=== PATIENT | female | born 2000 | race Caucasian/White ===

== ENCOUNTER → 2024-04-28 | Outpatient (CLI) | payer MEDICAID, SELFPAY | END | disposition home or self-care (01) | PROVIDERS: Referring Provider Obstetrics & Gynecology; Visit Provider Obstetrics & Gynecology | DX: R30.0 Dysuria (principal) | CPT/HCPCS: 87086; 87088; 87186 ==

== ENCOUNTER → 2024-05-17 | Outpatient (CLI) | payer MEDICAID, SELFPAY | END | disposition home or self-care (01) | PROVIDERS: Referring Provider Nurse Practitioner Family; Visit Provider Nurse Practitioner Family | DX: R30.0 Dysuria (principal) | CPT/HCPCS: 87086; 87088 ==

== ENCOUNTER → 2024-09-15 | Outpatient (CLI) | payer MEDICAID, SELFPAY ==
[2024-09-25 09:49] LABS: HPV Reflexed? NOT INDICATED
== END | disposition home or self-care (01) ==
LOC: LABSPEC 15:28
PROVIDERS: Referring Provider Advanced Practice Midwife; Visit Provider Advanced Practice Midwife
DX: Z12.4 Encounter for screening for malignant neoplasm of cervix (principal)
CPT/HCPCS: 88175; G0145

== ENCOUNTER → 2024-10-25 | Outpatient (CLI) | payer MEDICAID, SELFPAY ==
[2024-10-25 17:04] LABS: Absolute Lymphocyte Count 2.14 X10^3/uL (0.83-4.51); Absolute Neutrophil Count 4.4 X10^3/uL (2.0-7.7); Basophil# 0.04 X10^3/uL; Basophil% 0.6 % (0-1); Eosinophil# 0.07 X10^3/uL; Hematocrit 43.7 % (37-47); Hemoglobin 14.6 g/dL (12.0-15.0); Lymphocyte # 2.14 X10^3/ul (0.83-4.51); Lymphocyte % 29.8 % (19-41); Mean Corp Hgb Conc 33.4 g/dL (32-36); Mean Corpuscular Hgb 28.3 pg (27.0-32.0); Mean Corpuscular Volume 84.7 fL (81-99); Mean Platelet Vol. 10.5 fl (6.2-12.0); Monocyte# 0.49 X10^3/uL; Monocyte% 6.8 % (0-10); NRBC Flagged by Analyzer 0 % (0-5); Neutrophil # 4.41 X10^3/uL (2.7-7.7); Neutrophil % 61.5 % (47-70); Platelet Count 287 K/mm3 (150-450); RBC Distribution Width CV 12.3 % (11.6-14.6); RBC Distribution Width SD 37.6 fl (35.1-43.9); Red Blood Count 5.16 M/mm3 (4.2-5.4); White Blood Count 7.2 K/mm3 (4.4-11.0)
[2024-10-25 17:20] LABS: Vitamin D,25 Hydroxy 18.1 ng/mL
[2024-10-25 17:23] LABS: ALB/GLOB Ratio 1.1 RATIO (0.9-2.4); AST(SGOT) 14 U/L (15-37); Alanine Aminotransfer ALT/SGPT 24 U/L (13-56); Albumin, Serum 4.1 g/dL (3.2-5.0); Alkaline Phosphatase 131 U/L (45-117); Anion Gap 9 (5-15); BUN 14 mg/dL (7-18); BUN/Creat Ratio 16.8 RATIO (10-20); Calcium,Total 9.2 mg/dL (8.5-10.1); Chloride 100 mmol/L (98-107); Creatinine, Serum 0.83 mg/dL (0.55-1.02); EST Glomerular Filtration Rate 91 mL/min (>60); Est Glom Filt Rate - Afr Amer 110 mL/min (>60); Globulin 3.7 g/dL (2.2-4.2); Glucose 89 mg/dL (74-106); Potassium 3.8 mmol/L (3.5-5.1); Protein, Total 7.8 g/dL (6.4-8.2); Sodium Level 137 mmol/L (136-145)
== END | disposition home or self-care (01) ==
LOC: BWCLAB 16:26
PROVIDERS: Referring Provider Nurse Practitioner Family; Visit Provider Nurse Practitioner Family
DX: Z13.29 Encounter for screening for other suspected endocrine disorder (principal); R53.83 Other fatigue; Z13.21 Encounter for screening for nutritional disorder
CPT/HCPCS: 36415; 80053; 82306; 84439; 84443; 85025

== ENCOUNTER → 2025-01-04 | Outpatient (CLI) | payer MEDICAID, SELFPAY | END | disposition home or self-care (01) | LOC: LABSPEC 11:27 | PROVIDERS: Referring Provider Nurse Practitioner Family; Visit Provider Nurse Practitioner Family | DX: N89.8 Other specified noninflammatory disorders of vagina (principal) | CPT/HCPCS: 87070; 87205 ==

== ENCOUNTER → 2025-02-02 | Outpatient (CLI) | payer MEDICAID, SELFPAY ==
[2025-02-02 17:57] LABS: Vitamin D,25 Hydroxy 28.5 ng/mL (30-100)
== END | disposition home or self-care (01) ==
LOC: BWCLAB 16:27
PROVIDERS: Referring Provider Nurse Practitioner Family; Visit Provider Nurse Practitioner Family
DX: E55.9 Vitamin D deficiency, unspecified (principal)
CPT/HCPCS: 36415; 82306

== ENCOUNTER → 2025-02-06 | Outpatient (CLI) | payer MEDICAID, SELFPAY | END | disposition home or self-care (01) | LOC: LABSPEC 11:30 | PROVIDERS: Referring Provider Advanced Practice Midwife; Visit Provider Advanced Practice Midwife | DX: N89.8 Other specified noninflammatory disorders of vagina (principal) | CPT/HCPCS: 87070; 87077; 87186; 87205 ==

== ENCOUNTER → 2025-03-23 | Outpatient (CLI) | payer MEDICAID, SELFPAY ==
[2025-03-23 09:29] LABS: hCG Titer Quant., Serum 33 mIU/mL (<9 non-preg)
== END | disposition home or self-care (01) ==
LOC: BWCLAB 08:17
PROVIDERS: Referring Provider Advanced Practice Midwife; Visit Provider Advanced Practice Midwife
DX: Z34.90 Encounter for supervision of normal pregnancy, unspecified, unspecified trimester (principal)
CPT/HCPCS: 36415; 84702

== ENCOUNTER → 2025-03-26 | Outpatient (CLI) | payer SELFPAY ==
[2025-03-26 11:13] LABS: hCG Titer Quant., Serum 8 mIU/mL (<9 non-preg)
== END | disposition home or self-care (01) ==
LOC: LAB 07:48
PROVIDERS: PCP Internal Medicine; Referring Provider Obstetrics & Gynecology; Visit Provider Obstetrics & Gynecology
DX: O46.90 Antepartum hemorrhage, unspecified, unspecified trimester (principal); Z3A.00 Weeks of gestation of pregnancy not specified
CPT/HCPCS: 36415; 84702

== ENCOUNTER → 2025-04-03 | Outpatient (CLI) | payer OTHER, SELFPAY ==
[2025-04-03 10:10] LABS: hCG Titer Quant., Serum < 1 mIU/mL (<9 non-preg)
== END | disposition home or self-care (01) ==
LOC: BWCLAB 08:17
PROVIDERS: PCP Internal Medicine; Referring Provider Obstetrics & Gynecology; Visit Provider Obstetrics & Gynecology
DX: O03.9 Complete or unspecified spontaneous abortion without complication (principal)
CPT/HCPCS: 36415; 84702

== ENCOUNTER → 2025-04-25 | Outpatient (CLI) | payer OTHER, SELFPAY ==
[2025-04-25 11:56] LABS: hCG Titer Quant., Serum 15 mIU/mL (<9 non-preg)
== END | disposition home or self-care (01) ==
PROVIDERS: PCP Internal Medicine; Visit Provider Advanced Practice Midwife
DX: N91.2 Amenorrhea, unspecified (principal)
CPT/HCPCS: 36415; 84702

== ENCOUNTER → 2025-04-27 | Outpatient (CLI) | payer OTHER, SELFPAY ==
--- OUTSIDE RECORDS SUMMARY | 2025-04-27 07:42 | XMS RPT_ITS | CCD ---
Author Organization [facility] Care Team Providers Care Senior Internet Sales Consultant Name Role Phone Unavailable Primary Care Provider Unavailalfredo Ray MD, [facility] Primary Care Provider Nallely ÁLVAREZ, Hellen Primary Care Provider Nallely ÁLVAREZ, Hellen Primary Care Provider Nallely ÁLVAREZ, Hellen Primary Care Provider Nallely ÁLVAREZ, Hellen Primary Care Provider Brie EVANS Referring Unavailable LINGANNA, HELLEN Primary Care Unavailable REMI POWELL Referring Unavailable LINGANNA, HELLEN Primary Care Unavailable LINGANNA, HELLEN Primary Care Unavailable RHODA FOSTER Attending Unavailable YODIT FUCHS Admitting Unavailable RHODA FOSTER Attending Unavailable RHODA FOSTER Admitting Unavailable LINGANNA, HELLEN Primary Care Unavailable Nallely ÁLVAREZ, Hellen Primary Care Provider ZEKE FISCHER Attending Unavailable ASHLYN HEADLEY Referring Unavailable OLEGHE, EFEWONGBE B Primary Care Unavailable LINGANNA, HELLEN Primary Care Unavailable BHARATHI ESTRADA Referring Unavailable LINGANNA, HELLEN Primary Care Unavailable LINDA MÁRQUEZ Attending Unavailable Rosie Stinson Attending Unavailable Rosie Stinson Referring Unavailable Rosie Stinson Attending Unavailable Rosie Stinson Referring Unavailable Sharmin Hernandez Referring Unavailable Sharmin Hernandez Attending Unavailable Care Physician, No Primary Primary Care Unava ilable Sharmin Hernandez Referring Unavailable Sharmin Hernandez Attending Unavailable Sharmin Hernandez Referring Unavailable Sharmin Hernandez Attending Unavailable Sharmin Hernandez Attending Unavailable Sharmin Hernandez Referring Unavailable Oleghe, Efewongbe Primary Care Unavailable Rosie Stinson Attending Unavailable Elizabeth Dang Attending Unavailable Elizabeth Dang Referring Unavailable Care Physician, No Primary Primary Care Unava ilable Toi, Vani Attending Unavailable Doshetal, Vani Attending Unavailable Doshetal, Vani Attending Unavailable Jesus Chong Attending Unavailable Oleghe, Efewongbe Primary Care Unavailable Jesus Dickey Attending Unavailable UngereTonya mott Attending Unavailable Oleghe, Efewongbe Referring Unavailable Oleghe, Efewongbe Primary Care Unavailable Rosie Stinson Attending Unavailable Doshetal, Vani Attending Unavailable Dossi, Vani Referring Unavailable Dossi, Vani Attending Unavailable Milad, Rosie Referring Unavailable Milad, Rosie Attending Unavailable Dossi, Vani Attending Unavailable Marcanthony, Elizabeth Attending Unavailable Dossi, Vani Attending Unavailable Dossi, Vani Attending Unavailable Oleghe, Efewongbe Primary Care Unavailable Marcanthleonard, Elizabeth Referring Unavailable Marcanthlenoard, Elizabeth Attending Unavailable Milad, Rosie Attending Unavailable Care Physician, No Primary Referring Unava ilable Oleghe, Efewongbe Primary Care Unavailable Alton, Elizabeth Referring Unavailable Alton, Elizabeth Attending Unavailable Jesus Chong Attending Unavailable Jesus Chong Attending Unavailable Oleghe, Efewongbe Attending Unavailable Doshetal, Vani Attending Unavailable Care Physician, No Primary Referring Unava ilable Sharmin Hernandez Attending Unavailable Medications Current Medications Medication Drug Class(es) Dates Sig (Normalized) Sig (Original) azelastine hydrochloride 0.137 mg/actuat metered dose nasal spray (2 sources) Histamine-1 Receptor Antagonist Start: 04-14-2022 End: 05-21-2022 take 1 spray(s) nasal route twice daily azelastine (ASTELIN, ASTEPRO) 0.1% nasal spray Use 1 [place] in each nostril twice daily. 30 mL 2 04/14/2022 05/21/2022 Active Comment on above: Use 1 [place] in each nostril twice daily. cephalexin 500 mg oral capsule (5 sources) Cephalosporin Antibacterial Start: 11-23-2023 End: 11-30-2023 take 1 capsule by mouth twice daily cephALEXin (KEFLEX) 500 mg capsule Indications: Acute cystitis with hematuria Take 1 capsule by mouth two times a day for 7 days. 14 capsule 0 11/23/2023 11/30/2023 Active Start: 01-04-2023 End: 01-09-2023 take 1 capsule by mouth four times daily cephALEXin (KEFLEX) 500 mg capsule Take 1 capsule by mouth 4 times daily for 5 days. 20 capsule 0 01/04/2023 01/09/2023 Active Start: 03-04-2022 End: 03-11-2022 take 1 capsule by mouth twice daily cephALEXin (KEFLEX) 500 mg capsule Indications: Leukocytes in urine Take 1 capsule by mouth twice daily for 7 days. 14 capsule 0 03/04/2022 03/11/2022 Active Comment on above: Take 1 capsule by mo uth twice daily for 7 days. Take 1 capsule by mo uth 4 times daily for 5 days. Take 1 capsule by mo uth two times a day for 7 days. clotrimazole 10 mg/ml vaginal cream (2 sources) Azole Antifungal Start: 01-06-20 End: 01-13-20 23 clotrimazole (LOTRIMIN) 1 % vaginal cream Use 1 applicatorful vaginally daily at bedtime for 7 days. 45 g 0 01/05/2023 01/12/2023 Active Comment on above: Use 1 applicatorful vaginally daily at bedtime for 7 days. copper 313 mg drug implant (5 sources) Copper-containing Intrauterine Device Start: 10-02-20 23 End: 09-29-20 33 copper (PARAGARD) 380 square mm intrauterine device Indications: examination or test, unconfirmed , Encounter for IUD insertion 1 Intra Uterine Device by INTRAUTERINE route as directed. 1 Intra Uterine Device 10/02/2023 09/29/2033 Active Comment on above: 1 Intra Uterine Christi ce by INTRAUTERINE route as directed. doxycycline monohydrate 100 mg oral capsule (1 source) Tetracycline-class Drug Start: 01-24-20 24 End: 02-03-20 24 take 1 capsule by mouth twice daily doxycycline monohydrate (MONODOX) 100 mg capsule Take 1 capsule by mouth two times a day for 10 days. 20 capsule 0 01/24/2024 02/03/2024 Active metroNIDAZOLE 500 mg oral tablet (3 sources) Nitroimidazole Antimicrobial Start: 01-06-20 End: 01-13-20 23 take 1 tablet by mouth every twelve hours metroNIDAZOLE (FLAGYL) 500 mg tablet Take 1 tablet by mouth every 12 hours for 7 days. 14 tablet 0 01/05/2023 01/12/2023 Active Start: 10-03-2022 End: 10-10-2022 take 1 tablet by mouth twice daily metroNIDAZOLE (FLAGYL) 500 mg tablet Take 1 tablet by mouth twice daily for 7 days. 14 tablet 0 10/03/2022 10/10/2022 Active Comment on above: Take 1 tablet by gideon th twice daily for 7 days. Take 1 tablet by gideon th every 12 hours for 7 days. Miconazole (1 source) Azole Antifungal Start: 02-09-2023 End: 02-16-2023 miconazole nitrate (MONISTAT 7) 2 % (100 mg)- 2 % (9 gram) cpfc Indications: Candidal vaginitis Use 1 Applicator vaginally once daily for 7 days. 44 g 0 02/09/2023 02/16/2023 Active Comment on above: Use 1 Applicator vag inally once daily for 7 days. Completed/Discontinued Medications Medication Drug Class(es) Dates Sig (Normalized) Sig (Original) acetaminophen 500 mg oral tablet (3 sources) Start: 07-30-2023 End: 08-19-2023 take 2 tablets by mouth every six hours as needed acetaminophen (TYLENOL) 500 mg tablet Take 2 tablets by mouth every 6 hours as needed for pain. 30 tablet 0 07/30/2023 08/19/2023 Discontinued Comment on above: Take 2 tablets by mo ut every 6 hours as needed for pain. benzocaine 15 mg / menthol 2.6 mg oral lozenge (4 sources) Standardized Chemical Allergen Start: 05-19-2023 End: 06-25-2023 benzocaine-menthol (CEPACOL SORE THROAT, TOM-MEN,) 15-2.6 mg lozg lozenge Indications: Sore throat Take 1 Lozenge by mouth every 3 hours as needed. 16 Lozenge 0 05/19/2023 06/25/2023 Discontinued (Other) Comment on above: Take 1 Lozenge by mo uth every 3 hours as needed. Blood Pressure Monitor (3 sources) Start: 07-29-2023 End: 08-19-2023 Blood Pressure Monitor 1 Each two times a day. 1 Kit 0 07/29/2023 08/19/2023 Discontinued Start: 07-29-2023 Blood Pressure Monitor 1 Each two times a day. 1 Kit 0 07/29/2023 Active Comment on above: 1 Each two times a d ay. calcium carbonate 500 mg chewable tablet (14 sources) Start: 03-31-20 End: 08-19-20 take 1 tablet by mouth three times daily calcium carbonate (TUMS) 500 mg chew Take 1 & 1/2 tablets by mouth three times daily. 60 tablet 1 03/31/2023 08/19/2023 Discontinued Comment on above: Take 1 & 1/2 tablets by mouth three times daily. calcium carbonate 2500 mg / cholecalciferol 800 unt oral tablet (20 sources) Vitamin D Start: 12-26-19 End: 09-21-20 take 1 tablet by mouth once daily calcium carbonate-vitamin D3 1,000 mg-20 mcg (800 unit) tab Take 1 tablet by mouth once daily. 90 tablet 2 12/25/2022 08/19/2023 Discontinued Comment on above: Take 1 tablet by gideon th once daily. cetirizine hydrochloride 10 mg oral tablet (20 sources) Histamine-1 Receptor Antagonist Start: 03-31-20 End: 02-03-20 take 1 tablet by mouth once daily cetirizine (ZYRTEC) 10 mg tablet Indications: Chronic maxillary sinusitis Take 1 tablet by mouth once daily. 90 tablet 3 07/17/2022 02/02/2023 Discontinued Comment on above: Take 1 tablet by gideon th once daily. Desogestrel / Ethinyl Estradiol (14 sources) Progestin, Estrogen Start: 04-08-20 take 1 tablet by mouth once daily Desogestrel-Ethinyl Estradiol (RECLIPSEN, 28,) 0.15-0.03 mg per tablet Indications: Encounter for initial prescription of contraceptive pills Take 1 tablet by mouth once daily. 84 tablet 4 04/08/2022 Active Start: 03-10-2022 End: 04-08-2022 take 1 tablet by mouth once daily Desogestrel-Ethinyl Estradiol (RECLIPSEN, 28,) 0.15-0.03 mg per tablet Indications: Encounter for initial prescription of contraceptive pills Take 1 tablet by mouth once daily. 84 tablet 0 03/10/2022 04/08/2022 Discontinued Start: 03-10-2022 take 1 tablet by gideon th once daily Desogestrel-Ethinyl Estradiol (RECLIPSEN, 28,) 0.15-0.03 mg per tablet Indications: Encounter for initial prescription of contraceptive pills Take 1 tablet by mouth once daily. 84 tablet 0 03/10/2022 Active Start: 12-30-2021 take 1 tablet by gideon th once daily, then take 0.15 tablet by mouth once Desogestrel-Ethinyl Estradiol (APRI) 0.15-0.03 mg per tablet Indications: Encounter for initial prescription of contraceptive pills Take 1 tablet by mouth once daily. 84 tablet 0 12/30/2021 Active End: 03-10-2022 take 1 tablet by mouth once daily Desogestrel-Ethinyl Estradiol (RECLIPSEN, 28,) 0.15-0.03 mg per tablet Take 1 tablet by mouth once daily. 0 03/10/2022 Discontinued take 1 tablet by gideon th once daily Desogestrel-Ethinyl Estradiol (RECLIPSEN, 28,) 0.15-0.03 mg per tablet Take 1 tablet by mouth once daily. 0 Active Comment on above: Take 1 tablet by gideon th once daily. famotidine 20 mg oral tablet (14 sources) Histamine-2 Receptor Antagonist Start: 03-31-20 End: 08-19-20 take 1 tablet by mouth once daily famotidine (PEPCID) 20 mg tablet Take 1 tablet by mouth once daily. 40 tablet 1 03/31/2023 08/19/2023 Discontinued Comment on above: Take 1 tablet by gideon th once daily. ferrous sulfate 325 mg oral tablet (20 sources) Start: 12-26-19 End: 09-21-20 take 1 tablet by mouth once daily at bedtime ferrous sulfate 325 mg (65 mg iron) tablet Take 1 tablet by mouth daily at bedtime. 90 tablet 2 12/25/2022 08/19/2023 Discontinued Comment on above: Take 1 tablet by gideon th daily at bedtime. fluconazole 150 mg oral tablet (2 sources) Azole Antifungal Start: 10-02-20 End: 10-03-20 take 1 tablet by mouth once daily fluconazole (DIFLUCAN) 150 mg tablet Take 1 tablet by mouth once daily for 1 day. 1 tablet 0 10/02/2022 10/03/2022 Comment on above: Take 1 tablet by gideon th once daily for 1 day. fluticasone propionate 0.05 mg/actuat metered dose nasal spray (20 sources) Corticosteroid Start: 03-31-20 End: 11-30-19 take 2 spray(s) nasal route once daily fluticasone (FLONASE ALLERGY RELIEF) 50 mcg/actuation nasal spray Indications: Chronic maxillary sinusitis Instill 2 sprays in each nostril once daily. 16 g 5 07/17/2022 11/30/2022 Discontinued (Course of therapy completed) Start: 10-01-2016 End: 03-31-2022 fluticasone (FLONASE ALLERGY RELIEF) 50 mcg/actuation nasal spray Comment on above: Instill 2 sprays in each nostril once daily. hydrOXYzine pamoate 25 mg oral capsule (16 sources) Antihistamine Start: 07-29-20 End: 11-30-19 take 1 capsule by mouth once daily as needed hydrOXYzine pamoate (VISTARIL) 25 mg capsule Take 1 capsule by mouth once daily as needed. 30 capsule 2 07/29/2022 11/30/2022 Discontinued (Course of therapy completed) Start: 06-16-2022 End: 11-30-2022 hydrOXYzine HCl (ATARAX) 10 mg tablet Comment on above: Take 1 tablet by gideon th twice daily as needed for anxiety/panic attacks Take 1 capsule by mo [facility] once daily as needed. ibuprofen 600 mg oral tablet (3 sources) Nonsteroidal Anti-inflammatory Drug Start: 3 End: 3 take 1 tablet by mouth every six hours as needed ibuprofen (MOTRIN) 600 mg tablet Take 1 tablet by mouth every 6 hours as needed for pain. 30 tablet 0 07/30/2023 08/19/2023 Discontinued Comment on above: Take 1 tablet by gideon th every 6 hours as needed for pain. lamoTRIgine 25 mg oral tablet (20 sources) Mood Stabilizer, Anti-epileptic Agent Start: 2 End: 3 take 1 tablet by mouth once daily lamoTRIgine (LAMICTAL) 100 mg tablet Take 1 tablet by mouth once daily. 30 tablet 2 06/03/2022 11/30/2022 Discontinued (Course of therapy completed) Start: 06-03-2022 End: 11-30-2022 take 1 tablet by mouth once daily, then take 2 tablets by mouth once daily lamoTRIgine (LAMICTAL) 25 mg tablet Take 1 tablet by mouth once daily for 2 weeks, then increase to 2 tablets (50mg) daily for 2 weeks. 42 tablet 0 06/03/2022 11/30/2022 Discontinued (Course of therapy completed) Comment on above: Take 1 tablet by gideon th once daily for 2 weeks, then increase to 2 tablets (50mg) daily for 2 weeks. Take 1 tablet by gideon th once daily. lidocaine hydrochloride 20 mg/ml mucous membrane topical solution (4 sources) Antiarrhythmic, Amide Local Anesthetic Start: 05-19-20 End: 06-25-20 lidocaine viscous (XYLOCAINE) 2 % solution Indications: Sore throat Gargle and spit 5 to 15 mL for no more frequently than every 3 hours. Do no exceed more than 8 doses per 24-hour period for up to 7 days 100 mL 0 05/19/2023 06/25/2023 Discontinued (Other) Comment on above: Gargle and spit 5 to 15 mL for no more frequently than every 3 hours. Do no exceed more than 8 doses per 24-hour period for up to 7 days montelukast 10 mg oral tablet (11 sources) Leukotriene Receptor Antagonist montelukast (SINGULAIR) 10 mg tablet Take by mouth. 0 Active Comment on above: Take by mouth. omega-3 DHA-EPA (FISH OIL) 1,200 (144-216) mg capsule (20 sources) Start: 12-26-19 End: 08-19-20 take 1 capsule by mouth once daily at breakfast omega-3 DHA-EPA (FISH OIL) 1,200 (144-216) mg capsule Take 1 capsule by mouth daily with breakfast. 90 capsule 2 12/25/2022 08/19/2023 Discontinued Start: 12-25-2022 End: 09-21-2023 take 1 capsule by mouth once daily at breakfast omega-3 DHA-EPA (FISH OIL) 1,200 (144-216) mg capsule Take 1 capsule by mouth daily with breakfast. 90 capsule 2 12/25/2022 09/21/2023 Suspended Start: 12-25-2022 End: 09-21-2023 take 1 capsule by mouth once daily at breakfast omega-3 DHA-EPA (FISH OIL) 1,200 (144-216) mg capsule Take 1 capsule by mouth daily with breakfast. 90 capsule 2 12/25/2022 09/21/2023 Active Comment on above: Take 1 capsule by mo uth daily with breakfast. ondansetron 8 mg disintegrating oral tablet (11 sources) Serotonin-3 Receptor Antagonist Start: 12-26-19 take 1 tablet by mouth once daily as needed for nausea ondansetron orally disintegrating (ZOFRAN ODT) 8 mg disintegrating tablet Dissolve 1 tablet by mouth once daily as needed for nausea/vomiting. 30 tablet 0 12/25/2022 Active Comment on above: Dissolve 1 tablet by mouth once daily as needed for nausea/vomiting. phenazopyridine hydrochloride 100 mg oral tablet (5 sources) Start: 03-04-20 take 2 tablets by mouth three times daily as needed phenazopyridine (PYRIDIUM, GERIDIUM) 100 mg tablet Indications: Dysuria Take 2 tablets by mouth three times daily as needed. 9 tablet 0 03/04/2022 Active Comment on above: Take 2 tablets by mo uth three times daily as needed. [id number] pa-fish 27 mg iron-800 mcg-260 mg (11 sources) Start: 12-01-19 take 1 capsule by mouth once daily [id number] epa-fish 27 mg iron-800 mcg-260 mg Take 1 capsule by mouth once daily. 30 capsule 2 12/01/2022 Active Comment on above: Take 1 capsule by mo uth once daily. Vitamin w/ Iron ( VITAMIN PLUS LOW IRON) 27 mg iron- 1 mg (20 sources) Start: 06-21-20 End: 07-11-20 24 take 1 tablet by mouth once daily Vitamin w/ Iron ( VITAMIN PLUS LOW IRON) 27 mg iron- 1 mg Take 1 tablet by mouth once daily. 90 tablet 3 06/21/2023 07/11/2024 Discontinued Start: 06-21-2023 End: 06-15-2024 take 1 tablet by mouth once daily Vitamin w/ Iron ( VITAMIN PLUS LOW IRON) 27 mg iron- 1 mg Take 1 tablet by mouth once daily. 90 tablet 3 06/21/2023 06/15/2024 Suspended Start: 06-21-2023 End: 06-15-2024 take 1 tablet by mouth once daily Vitamin w/ Iron ( VITAMIN PLUS LOW IRON) 27 mg iron- 1 mg Take 1 tablet by mouth once daily. 90 tablet 3 06/21/2023 06/15/2024 Active Start: 12-25-2022 End: 06-18-2023 take 1 tablet by mouth once daily Vitamin w/ Iron ( VITAMIN PLUS LOW IRON) 27 mg iron- 1 mg Take 1 tablet by mouth once daily. 60 tablet 1 12/25/2022 06/18/2023 Active Start: 12-25-2022 End: 05-15-2023 take 1 tablet by mouth once daily Vitamin w/ Iron ( VITAMIN PLUS LOW IRON) 27 mg iron- 1 mg Take 1 tablet by mouth once daily. 60 tablet 1 12/25/2022 05/15/2023 Active Start: 12-25-2022 End: 04-24-2023 take 1 tablet by mouth once daily Vitamin w/ Iron ( VITAMIN PLUS LOW IRON) 27 mg iron- 1 mg Take 1 tablet by mouth once daily. 60 tablet 1 12/25/2022 04/24/2023 Active Comment on above: Take 1 tablet by gideon th once daily. sodium chloride 0.111 meq/ml nasal solution (16 sources) Start: 0 End: 2 sodium chloride 0.65 % drop Use 1 [place] in the nose. 0 05/21/2020 07/17/2022 Discontinued (Course of therapy completed) Comment on above: Use 1 [place] in the n ose. ulipristal acetate 30 mg oral tablet (3 sources) Progesterone Agonist/Antagonist Start: 2 End: 2 take 1 tablet by mouth once ulipristal acetate (YAMILETH) 30 mg tablet Indications: Emergency contraception Take 1 tablet by mouth one time only for 1 dose. 1 tablet 5 04/08/2022 04/15/2022 Comment on above: Take 1 tablet by gideon th one time only for 1 dose. vitamin b6 100 mg oral tablet (11 sources) Start: 3 take 1 tablet by mouth once daily pyridoxine, vitamin B6, (VITAMIN B-6) 100 mg tablet Take 1 tablet by mouth once daily. 30 tablet 1 12/25/2022 Active Comment on above: Take 1 tablet by gideon th once daily. zolpidem tartrate 5 mg oral tablet (7 sources) gamma-Aminobutyric Acid-ergic Agonist Start: End: 3 take 1 tablet by mouth every 30 days at bedtime as needed zolpidem (AMBIEN) 5 mg tablet Indications: Primary insomnia Take 1 tablet by mouth at bedtime as needed for insomnia for up to 30 days. 15 tablet 2 07/29/2022 11/30/2022 Discontinued (Course of therapy completed) Start: 07-17-2022 End: 07-27-2022 take 1 tablet by mouth at bedtime as needed zolpidem (AMBIEN) 5 mg tablet Indications: Primary insomnia Take 1 tablet by mouth at bedtime as needed for insomnia for up to 7 days. 7 tablet 0 07/17/2022 07/27/2022 Active Comment on above: Take 1 tablet by gideon th at bedtime as needed for insomnia for up to 7 days. Take 1 tablet by gideon th at bedtime as needed for insomnia for up to 30 days. Problems Active Problems Problem Classification Problem Date Documented Date Episodic/Chronic Anxiety disorders (1 source) Posttraumatic stress disorder; Translations: [Post-traumatic stress disorder, unspecified] Chronic Complication of device; implant or graft (1 source) Migration of intrauterine contraceptive device; Translations: [Displacement of intrauterine contraceptive device, initial encounter] Episodic Contraceptive and procreative management (20 sources) Patient encounter status; Translations: [Encounter for initial prescription of contraceptive pills] Onset: 07-27-2023 Resolved: 01-24-2024 Episodic Hemorrhage during ; abruptio placenta; placenta previa (1 source) Antepartum hemorrhage, unspecified, unspecified trimester; Translations: [Antepartum hemorrhage, unspecified, unspecified trimester] Onset: 03-30-2025 Episodic Immunizations and screening for infectious disease (2 sources) Suspected disease caused by 2019-nCoV; Translations: [Suspected COVID-19 virus infection] 05-19-2023 Episodic Menstrual disorders (1 source) Amenorrhea, unspecified; Translations: [Amenorrhea, unspecified] Onset: 04-25-2025 Chronic Miscellaneous mental health disorders (2 sources) Primary insomnia; Translations: [Primary insomnia] Chronic Mood disorders (20 sources) Cyclothymia; 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] Onset: 07-17-2022 Chronic Mycoses (1 source) Candidiasis of vagina; Translations: [Candidal vaginitis] Episodic Nutritional deficiencies (20 sources) Undernutrition; Translations: [Mild protein-calorie malnutrition] Onset: 04-12-2022 Resolved: 01-24-2024 04-12-2022 Chronic Other bone disease and musculoskeletal deformities (1 source) Other idiopathic scoliosis, thoracolumbar region; Translations: [Other idiopathic scoliosis, thoracolumbar region] Onset: 10-30-2024 Chronic Other female genital disorders (1 source) Abnormal uterine bleeding; Translations: [Abnormal uterine and vaginal bleeding, unspecified] 01-24-2024 Chronic Other female genital disorders (2 sources) Vaginal discharge; Translations: [Other specified noninflammatory disorders of vagina] Episodic Other female genital disorders (1 source) Vaginal odor; Translations: [Other specified noninflammatory disorders of vagina] Episodic Other female genital disorders (1 source) Other specified noninflammatory disorders of vagina; Translations: [Other specified noninflammatory disorders of vagina] Onset: 02-12-2025 Episodic Other nutritional; endocrine; and metabolic disorders (1 source) Decrease in appetite; Translations: [Anorexia] Episodic Other and delivery including normal (13 sources) - urine test confirms ; Translations: [Encounter for test, result positive] Onset: 07-23-2023 Episodic Other upper respiratory disease (1 source) Allergic rhinitis; Translations: [Allergic rhinitis, unspecified] Chronic Other upper respiratory infections (2 sources) Chronic maxillary sinusitis; Translations: [Chronic maxillary sinusitis] Chronic Other upper respiratory infections (2 sources) Sore throat symptom; Translations: [Acute pharyngitis, unspecified] 05-19-2023 Episodic Otitis media and related conditions (1 source) Dysfunction of bilateral eustachian tubes; Translations: [Other specified disorders of Eustachian tube, bilateral] Episodic Ovarian cyst (3 sources) Cyst of right ovary; Translations: [Unspecified ovarian cyst, right side] Onset: 07-12-2024 07-12-2024 Episodic Residual codes; unclassified (3 sources) Treatment not available; Translations: [Procedure and treatment not carried out for other reasons] Episodic Residual codes; unclassified (1 source) Emergency contraception; Translations: [Other specified health status] Episodic Residual codes; unclassified (1 source) Procedure not done; Translations: [Procedure and treatment not carried out, unspecified reason] Episodic Residual codes; unclassified (1 source) Gestation period, 24 weeks; Translations: [24 weeks gestation of ] 04-20-2023 Episodic Residual codes; unclassified (1 source) Gestation period, 34 weeks; Translations: [34 weeks gestation of ] 06-26-2023 Episodic Screening and history of mental health and substance abuse codes (1 source) History of clinical finding in subject; Translations: [Personal history of other mental and behavioral disorders] Episodic Spondylosis; intervertebral disc disorders; other back problems (6 sources) Chronic low back pain; Translations: [Chronic midline 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 sciatica] Episodic Spontaneous (1 source) Complete or unspecified spontaneous without complication; Translations: [Complete or unspecified spontaneous without complication] Onset: 04-08-2025 Episodic Urinary tract infections (1 source) Acute cystitis; Translations: [Acute cystitis with hematuria] 11-23-2023 Episodic Past or Other Problems Problem Classification Problem Date Documented Da te Episodic/Chronic Abdominal pain (3 sources) Pain in female pelvis; Translations: [Pelvic and perineal pain] Onset: 07-11-2024 01-24-2024 Episodic Digestive congenital anomalies (20 sources) Congenital velopharyngeal incompetence;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 in See Rx Instructions PO PER PKG D IR 02/20/25 02/20/25 Rx a dose pack (Medrol (Mino)) #21 tabs Nurse's Note: Patient has cough, congestion and sinus pressure and headache that has been going on for 3 days. [facility] Medical History (Updated 02/12/25 @ 14:[address] Matilde Castillo MD) Brain fog Anxiety and depression Encounter to establish care Vitamin D deficiency History of frequent headaches Gestational hypertension Segmental dysfunction of lumbar region Segmental dysfunction of cervical region Migraines Surgical History History of repair of congenital cleft palate History of tonsillectomy History of surgical procedure on maxillary sinus History of tympanoplasty Family History Father Age: 45 Arthritis Hypertension Mother Age: 42 Anxiety Depression Alcoholism Aunt Age: 34 Psoriatic arthritis POTS (postural orthostatic tachycardia syndrome) Uncle Age: 55 CVA (cerebral vascular accident) Grandmother Blood clot in vein CVA (cerebral vascular accident) Grandfather Lung cancer Heart failure Social History (Updated 02/12/25 @ 13:45 by Luana Miller MA) adopted: No household members: spouse and children number of children: 1 current occupational status: employed current occupation: [employer] current occupational exposures/hazards: No pets and animals: No history of recent travel: No sexually active: Yes Smoking Status: Never smoker alcohol intake: never substance use type: does not use caffeine: Yes (1) Type: coffee frequency: does not exercise seatbelt use: always do you feel safe at home: Yes additional social history: Spouse - Damion HPI HPI Details: NATA QUEZADA, is a 24 F who presents to the office today for [facility] evaluation in [facility] for approximately 48 to 72-hour history of persistent cough, congestion and sinus pressure and headache. No c/o fever, chills, myalgias, fatigue, nausea, and diarrhea. Patient notes no complaints of chest pain or shortness of breath or dyspnea on exertion. Several close contacts recently dx???d w/ similar URI complaints. No axox-syt-leidgwt taken to assist. No other associated symptoms and no other alleviating/aggravatin g factors. ROS Const Constitutional: No other (As above) Exam Const General: cooperative, healthy appearing and no acute distress Orientation: alert, awake and oriented x3 HENMT Head: normal to inspection Ears: hearing grossly normal bilaterally, external ears normal, TM's normal bilaterally and EAC's normal Nose: external nose normal, nares normal, septum normal and clear nasal discharge Face and sinus: normal facial exam, sinuses tender (bilateral frontal/maxillary), and face symmetric Mouth: oral mucosae normal, lip normal, tongue normal and oropharynx normal Throat: posterior oropharynx normal, tonsils normal, uvula midline and no postnasal drainage Eyes General: appearance normal, both eyes and all related structures Neck Neck: normal visual inspection, full ROM, no lymphadenopathy, no meningeal signs and supple Neck mass: No Thyroid: thyroid normal Lymphatic: no lymphadenopathy noted Chest Chest palpation inspection: normal inspection of the chest Resp Effort Inspection: normal respiratory effort, able to speak in complete sentences and cough Quality of cough: wet (nonproductive in office today) Auscultation: Bilateral: Clear to Auscultation Cardio Palpation: normal PMI Rate: Regular Rhythm: regular rhythm Heart Sounds: S1 normal, S2 normal, no gallops, no murmurs and no ru (more content not included)... Normal [facility] Internal Medicine Office Vis rose 02-12-2025 Internal Medicine Office Visit [facility] [address] [place] [address] OFFICE VISIT Date of Service: 02/12/25 MR#: [id number] Acct: [id number] Name: NATA QUEZADA Rep #: [id number] : 2000 Provider: Dr. Matilde kennedy MD Age/Sex: 24/F Location: [facility] Status: Signed Intake Vital Signs 09/15/24 13:18 02/06/25 09:59 02/12/25 13:41 Height 5 ft 5 in 5 ft 5 in 5 ft 4 in Weight: 161 lb BMI 27.6 BP 120/70 Blood Pressure Location Lt brachial Position Sitting Respiration 14 Pulse 76 Pulse Source Monitor Temp 99 F Temp Source Temporal Pulse Oximetry (%) 98 Oxygen Delivery Method room air Intake Visit Reasons: Booked from other vendor Chief Complaint: Establish care. Brain fog. Air Traffic Supervisor Required: No Is patient in pain?: No Allergies No Known Allergies Allergy (Unverified 02/06/25 10:01) Medications ???Medication ???Instructions ???Recorded ???Confirmed ???Type cholecalciferol (vitamin D3) 25 4,000 unit PO QDAY 02/12/25 History mcg (1,000 unit) capsule sertraline 50 mg tablet (Zoloft) 50 mg PO QDAY #60 tabs 02/12/25 Rx PFSH Medical History (Updated 02/12/25 @ 14:[address] Matilde Castillo MD) Brain fog Anxiety and depression Encounter to establish care Vitamin D deficiency History of frequent headaches Gestational hypertension Segmental dysfunction of lumbar region Segmental dysfunction of cervical region Migraines Surgical History History of repair of congenital cleft palate History of tonsillectomy History of surgical procedure on maxillary sinus History of tympanoplasty Family History Father Age: 45 Arthritis Hypertension Mother Age: 42 Anxiety Depression Alcoholism Aunt Age: 34 Psoriatic arthritis POTS (postural orthostatic tachycardia syndrome) Uncle Age: 55 CVA (cerebral vascular accident) Grandmother Blood clot in vein CVA (cerebral vascular accident) Grandfather Lung cancer Heart failure Social History (Updated 02/12/25 @ 13:45 by Luana Miller MA) adopted: No household members: spouse and children number of children: 1 current occupational status: employed current occupation: [employer] current occupational exposures/hazards: No pets and animals: No history of recent travel: No sexually active: Yes Smoking Status: Never smoker alcohol intake: never substance use type: does not use caffeine: Yes (1) Type: coffee frequency: does not exercise seatbelt use: always do you feel safe at home: Yes additional social history: Spouse - Damion Questionnaire PQH-9 BMS Over the last 2 weeks, how often have you been bothered by any of the following problems? 1. Little interest or pleasure in doing things: nearly every day 2. Feeling down, depressed, or hopeless: several days 3. Trouble falling or staying asleep, or sleeping too much: not at all 4. Feeling tired or having little energy: nearly every day 5. Poor appetite or overeating: several days 6. Feeling bad about yourself - or that you are a failure or have let yourself and your family down: more than half the days 7. Trouble concentrating on things, such as reading the newspaper or watching television: more than half the days 8. Moving or speaking so slowly that other people could have noticed? - Or the opposite - being so fidgety or restless that you have been moving around a lot more than usual: several days 9. Thoughts that you would be better off or of hurting yourself in some way: not at all Total score: 13 Source: Developed by Drs. Dane Becerra, Manuela Stinson, Dean Flowers and colleagues, with an educational epi from [employer]. FRANCI-7 BMS FRANCI-7 Feeling nervous, anxious, or on edge: 3 = Nearly every day Not being able to stop or control worryin = Several days Worrying too much about different things: 3 = Nearly every day Trouble relaxin = More than half the days Being so restless that it is hard to sit still: 0 = Not at all Becoming easily annoyed or irritable: 1 = Several days Feeling afraid as if something awful might happen: 1 = Several days Total FRANCI-7 score (0-4 normal; 5-9 mild; 10-14 moderate; 15-21 severe): 11 Source: Developed by Drs. Dane Becerra, Manuela Stinson, Dean Flowers and colleagues, with an educational epi from [employer]. HPI HPI Chief Complaint: Establish care. Brain fog. Details: NATA QUEZADA, is a 24 F who presents to the office today to establish care. Also has some concerns. Had her son a few months ago and since then, she states that she has had a "brain fog. Becoming increasingly difficult to function and work. Chronic history of anxiety and depression, (more content not included)... Normal [facility] Genital Culture Comprehensiv taqueria 02-11-2025 VAC Reason for Exam: Vaginal Discharge Normal vaginal kathy isolated. No yeast, Gardnerella, or Neisseria isolated. Genital Culture Comprehensive Genital Culture Comprehensive Strep anginosus Amount Growth 3+ Strep anginosus: REACTION Ampicillin Islt DEVANG <=0.25 Penicillin G Islt DEVANG <=0.06 S Cefotaxime Islt DEVANG <=0.12 S cefTRIAXone Islt DEVANG <=0.12 S Clindamycin Islt DEVANG <=0.25 S Linezolid Islt DEVANG <=2 S Vancomycin Islt DEVANG 0.25 S Normal [facility] Comment on above: Performed By: #### M 100.2000, M100.3200 ####[facility] [id number] [place], [place], [id number] Gram Stainon 02-06-2025 Reason for Exam: Vaginal Discharge Gram Stain 4+ Gram variable melody No Gram negative diplococci Rare Gram positive cocci Score = 8 Interpretation: 0-3 Normal, 4-6 Intermediate, 7-10 Positive BV Normal [facility] Comment on above: Performed By: #### M 100.2000, M100.3200 ####[facility] [id number] [place], [address] Brand Director Office Visit Reporton 02-06-2025 Brand Director Office Visit Report [facility] [address], [address] [place] [address] OFFICE VISIT Date of Service: 02/06/25 MR#: [id number] Acct: [id number] Name: NATA QUEZADA Rep #: [id number] : 2000 Provider: CHONG Oneill ams Age/Sex: 24/F Location: [facility] Status: Signed Intake Vital Signs 09/15/24 13:18 01/04/25 10:20 02/06/25 09:59 Height 5 ft 5 in 5 ft 5 in 5 ft 5 in Weight: 140 lb BMI 23.3 BP 139/84 H Intake Visit Reasons: PARAGUARD REMOVAL Chief Complaint: Paragard Removal Air Traffic Supervisor Required: No Is patient in pain?: No Allergies No Known Allergies Allergy (Unverified 02/06/25 10:01) Medications ???Medication ???Instructions ???Recorded ???Confirmed ???Type cholecalciferol (vitamin D3) 25 25 mcg PO QDAY 02/06/25 02/06/25 H istory mcg (1,000 unit) capsule metronidazole 500 mg tablet 500 mg PO BID #14 tabs 02/06/25 Rx Is last menstrual period known: Yes Last Menstrual Period: 01/17/25 Post menopausal: No PFSH PFSH Medical History Segmental dysfunction of lumbar region Segmental dysfunction of cervical region Migraines Surgical History History of repair of congenital cleft palate History of tonsillectomy History of surgical procedure on maxillary sinus History of tympanoplasty Family History Father Age: 45 Arthritis Mother Age: 42 Anxiety Depression Aunt Age: 34 Autoimmune disorder Uncle Age: 55 CVA (cerebral vascular accident) Grandmother Blood clot in vein Seizures CVA (cerebral vascular accident) Grandfather Sudden cardiac Social History adopted: No household members: spouse and children number of children: 1 current occupational exposures/hazards: No pets and animals: Yes history of recent travel: No sexually active: Yes Smoking Status: Never smoker alcohol intake: never substance use type: does not use seatbelt use: always do you feel safe at home: Yes additional social history: Spouse - Damion History Past Pregnancies Del. Date Name GA/Weeks Outcome Route Bth Weight Infant Gen Labor Lgth Anesthesia Del Locatn Provider FOB 07/28/23 Oseas 38 live - full term [place] HPI PARAGUARD REMOVAL Details: NATA QUEZADA is a 24 year old who presents for IUD removal. would like to TTC. Female Reproductive History Last Menstrual Period: 01/17/25 ROS Const Constitutional: Reports system reviewed and no additional complaints, except as documented Cardio Card: Reports system reviewed and no additional complaints, except as documented Resp Resp: Reports system reviewed and no additional complaints, except as documented GI GI: Reports system reviewed and no additional complaints, except as documented : Reports system reviewed and no additional complaints, except as documented; Denies difficulty voiding, dysuria or urinary frequency Skin Skin/Breast: Reports system reviewed and no additional complaints, except as documented Neuro Neuro: Reports system reviewed and no additional complaints, except as documented Psych Psych: Reports system reviewed and no additional complaints, except as documented; Denies anhedonia, anxiety or depression Exam Const General: cooperative, healthy appearing, comfortable and no acute distress Orientation: alert, awake and oriented x3 Resp Effort Inspection: normal respiratory effort, able to speak in complete sentences and symmetric chest movement GI Inspection: normal to inspection Palpation: soft Rectal Exam: visual inspection normal External Female Exam: normal external appearance and normal appearance of the urethra Urethra: normal appearance of the urethra Speculum Exam - Vagina: normal appearance of the vagina and normal vaginal discharge Speculum Exam - Cervix: normal appearance of the cervix Skin General: no rashes or lesions noted Neuro General: patient alert, patient awake and patient oriented x3 Cognition: normal cognition Speech: speech normal Gait: normal gait Extrem General: normal to inspection and full ROM Psych Appearance: grossly normal and well kempt Mental Status: mental status grossly normal Affect: normal affect Speech and Movement: speech and movement normal Attitude: cooperative Thought Process: normal Thought Content: normal Judgment: judgment good Office Procedures IUD Removal IUD Removal Details: Sign out documentation: Completed Procedure: Speculum placed in vagina, IUD string visualized and grasped with ring forceps. IUD easily removed in its entirety and patient tolerated well. Coding Leve (more content not included)... Normal [facility] Vitamin D,25 Hydroxyon 02-02 Vitamin D 25-OH 28.5 ng/mL Low 30-100 [facility] Comment on above: Result Comment: Linda min D Status Deficiency: <20 ng/mL (50nmol/L) Insufficiency: 20-30 ng/mL (50-75 nmol/L) Sufficiency: 30-100 ng/mL (75-250 nmol/L) Toxicity: >100 ng/mL (>250 nmol/L) Performed By: #### L 506.1001 ####[facility] [address] [place], [place], [id number] Genital Culture Comprehensiv taqueria 01-08-2025 VAC Reason for Exam: Vaginal Discharge Normal vaginal kathy isolated. No yeast, Gardnerella, Neisseria or beta-hemolytic Streptococcus isolated. 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, [address] Gram Stainon 01-04-2025 GS Reason for Exam: Vaginal Discharge Gram Stain No Gram negative diplococci 2+ White Blood Cells 4+ Gram positive rods 1+ Gram negative rods Score = 1 Interpretation: 0-3 Normal, 4-6 Intermediate, 7-10 Positive BV Normal [facility] Comment on above: Performed By: #### M 100.1999, M100.3200 #### [facility] [address] [place], [address] Brand Director Office Visit Reporton 01-04-2025 Brand Director Office Visit Report [facility] [address] [place] [address] OFFICE VISIT Date of Service: 01/04/25 MR#: [id number] Acct: [id number] Name: NATA QUEZADA Rep #: [id number] : 2000 Provider: GALILEO Jordan Age/Sex: 24/F Location: [facility] Status: Signed Intake Vital Signs 09/15/24 13:18 01/04/25 10:10 01/04/25 10:20 Height 5 ft 5 in 5 ft 5 in 5 ft 5 in Weight: 135 lb BMI 22.4 BP 136/84 H Intake Visit Reasons: Culture Chief Complaint: Culture Air Traffic Supervisor Required: No Is patient in pain?: No Allergies No Known Allergies Allergy (Unverified 01/04/25 10:20) Medications ???Medication ???Instructions ???Recorded ???Confirmed ???Type amoxicillin 875 mg tablet 875 mg PO BID #14 tabs 12/29/24 Rx fluconazole 150 mg tablet 150 mg PO Q3D 2 doses #2 tabs 12/2601/04/25 Rx Post menopausal: No Patient : No : No Control Method: IUD PFSH Medical History Segmental dysfunction of lumbar region Segmental dysfunction of cervical region Migraines Surgical History History of repair of congenital cleft palate History of tonsillectomy History of surgical procedure on maxillary sinus History of tympanoplasty Family History Father Age: 45 Arthritis Mother Age: 42 Anxiety Depression Aunt Age: 34 Autoimmune disorder Uncle Age: 55 CVA (cerebral vascular accident) Grandmother Blood clot in vein Seizures CVA (cerebral vascular accident) Grandfather Sudden cardiac Social History adopted: No household members: spouse and children number of children: 1 current occupational exposures/hazards: No pets and animals: Yes history of recent travel: No sexually active: Yes Smoking Status: Never smoker alcohol intake: never substance use type: does not use seatbelt use: always do you feel safe at home: Yes additional social history: Spouse - Damion HPI Culture Details: NATA QUEZADA is a 24 year old who presents for vaginal discharge. She was recently treated for a sinus infection with amoxicillin. Prior to this she had noticed a yellow vaginal discharge. She started her antibiotics and this discharge has persisted. She now feels this morning she had noticed vaginal itching associated. Denies bleeding associated. Denies fever/chills. Due to start menses in 1 week. She is otherwise well. History Past Pregnancies Del. Date Name GA/Weeks Outcome Route Bth Weight Infant Gen Labor Lgth Anesthesia Del Locatn Provider FOB 07/28/23 Oseas 38 live - full term [place] ROS Const Constitutional: Denies chills, fatigue or fever(s) GI GI: Denies abdominal pain or nausea : Reports vaginal discharge, vaginal odor and vaginal pruritus; Denies difficulty voiding, dysuria, hematuria, pelvic pain, urinary incontinence or vaginal dryness Skin Skin/Breast: Denies rash Exam Const General: cooperative, healthy appearing, no acute distress and well groomed Nutritional Appearance: well nourished Orientation: oriented x3 HENMT Head: normal to inspection and normocephalic Resp Effort Inspection: normal respiratory effort and able to speak in complete sentences External Female Exam: normal external appearance and normal appearance of the urethra Urethra: normal appearance of the urethra Speculum Exam - Vagina: abnormal vaginal discharge yellow and other (milky), no lesions and No vaginal bleeding Speculum Exam - Cervix: normal appearance of the cervix (IUD strings in place) OB/External Speculum: No vaginal bleeding Speculum Exam: no vaginal bleeding Skin General: no rashes or lesions noted Neuro General: patient oriented x3 Psych Appearance: well kempt Affect: normal affect Attitude: cooperative Coding Level of Care Code Established Pt Off vis,est,level 3 Patient Type Established Diagnoses Vaginitis N76.0 Assessment and Plan Assessment and Plan (1) Vaginitis: Status: Acute Plan: culture obtained; treat with diflucan given recent ATB use, symptoms and exam. Final plan with culture results. Treat positives. Discussed preventative measures to prevent these symptoms. Orders: Orders Culture, Genital Comprehensive Today N89.8 - Other specified noninflammatory disorders of vagina POC BV Blue Test Today N89.8 - Other specified noninflammatory disorders of vagina Medications: New fluconazole may repeat second dose 72 hrs after first dose if symptoms persist 150 mg PO Q3D 2 tabs 0RF Plan Details Goals Barriers: Goals Decrease pain Improve ROM Decrease (more content not included)... Normal [facility] Progress Noteon 12-12-2024 Senior Landscape Architect Authentication Interface Message Text HPI: Nata is here after about 5 years. When she was last seen she had completed her cleft related care including a LeFort I maxillary advancement and genioplasty. She presents today due to a 6-month history of dark buildup along the central incisors and particulate matter within the roof of her mouth in the mornings. She thinks that they are not independent events. The issue does not happen later in the day. She describes the color of the material is dark enough to be consistent with blood but also notes that the material within the roof of the mouth seems like it could be food. No other symptoms or concerns Physical Exam: Nata appears well and is in no distress. There is poor support along the inferior orbital rims. The nose is midline. Nasal passages are clear bilaterally with slight inferior turbinate hypertrophy on the left. Intraoral exam shows a class I occlusion with no crossbite's. The gingiva appears slightly inflamed to the right along the maxillary teeth. there is a visible pharyngoplasty that does not appear to be overly tight or snug. There is no mucus buildup at the edge of the port. Assessment Nata is doing well overall. I believe her symptoms are most likely due to dryness but there is also possibility that this could be related to her gingival health. I have recommended she pursue twice daily flossing for the next few weeks and saline nasal spray as well 2-3 times a day for the next few weeks. I will do a virtual check in with her in 6 to 8 weeks to see how things are going. If the symptoms persist we will look into other potential causes. Plan: Manage gingivitis. Saline spray for nasal dryness. Total time spent in the care of Nata on 12/12/2024 was >20 minutes. This includes records/results review, evaluation/counseling of patient and documentation, as well as any literature review and discussion with other providers as is described above if applicable. Zeke Aiken MD Craniofacial, Pediatric Plastic and Reconstructive Surgery 12/12/2024 Normal [facility] Chiropractic Reporton 2024 Chiropractic Report [facility] [address] [place] [address] OFFICE VISIT Date of Service: 11/27/24 MR#: [id number] Acct: [id number] Name: NATA QUEZADA Rep #: [id number] : 2000 Provider: TIRSO Mina Age/Sex: 23/F Location: [facility] Status: Signed Intake Vital Signs 09/15/24 13:18 Height 5 ft 5 in Intake Visit Reasons: Back pain Chief Complaint: neck and low Back pain Is patient in pain?: Yes (upper and low back ) Pain scale (1-10): 6 Allergies No Known Allergies Allergy (Unverified 11/27/24 14:39) Medications ???Medication ???Instructions ???Recorded ???Confirmed ???Type NK 08/28/24 11/27/24 History PFSH Medical History Segmental dysfunction of lumbar region Segmental dysfunction of cervical region Migraines Surgical History History of repair of congenital cleft palate History of tonsillectomy History of surgical procedure on maxillary sinus History of tympanoplasty Family History Father Age: 45 Arthritis Mother Age: 42 Anxiety Depression Aunt Age: 34 Autoimmune disorder Uncle Age: 55 CVA (cerebral vascular accident) Grandmother Blood clot in vein Seizures CVA (cerebral vascular accident) Grandfather Sudden cardiac Social History adopted: No household members: spouse and children number of children: 1 current occupational exposures/hazards: No pets and animals: Yes history of recent travel: No sexually active: Yes Smoking Status: Never smoker alcohol intake: never substance use type: does not use seatbelt use: always do you feel safe at home: Yes additional social history: Spouse - Damion HPI Back pain Chief Complaint: Upper and lower Back pain Visit Number: 3 Details: Nata Quezada a 23 yr old F here today to f/u on neck, upper and low back pain. Pt. c/o neck pain that extends into her upper back and across her shoulders bilaterally. She rates her upper back pain 6/10. She also states her low back is tender to touch particularly the right side. She states she had to cancel her last appointment which has contributed to her pain. Pt treats pain at home with heat and stretches she was shown which is helpful in relieving some of her pain. Patient denies new injury, numbness, tingling, or radiculopathy. She reports chiropractic adjustments are helpful in relieving her pain and discomfort. 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 factors: Information Services Manager Pain Quality: aching and other (stiff) Exam Musc General: Yes normal gait, joint tenderness and decreased range of motion; No normal posture or muscle weakness Cervical Spine: Yes loss of normal cervical lordosis, Yes cervical muscular tenderness bilateral diffuse , Yes cervical spasm right greater than left lower trapezius and paracervical muscles and Yes misalignment misalignment: C2, C5, C6 and C7 Thoracic/Lumber: No thoracic and lumbar spine normal to inspection, Yes pain with thoraco-lumbar ROM with lateral flexion to the right, with rotation to the right and other (extension), Yes paraspinal tenderness on the right greater than left (thoracolumbar), Yes scoliosis (R thoracic scoliosis), Yes thoraco-lumbar spasm on the right greater than left (trap, rhomboid, paraspinal T2-T12) and Yes misalignment T2, T3, T4, T8, T9, T10, L3, L4, L5 and LIL Sacroiliac joints: on the left tender to palpation Office Procedures Procedures - Chiropractic Procedures Manipulation: Cervical C2 and C6, Lumbar L3, Thoracic T2, T5 and T10 and Pelvis LIL Manipulation: 3-4 regions Traction, Mechanical: Yes Patient Response: positive Assessment and Plan Assessment and Plan (1) Segmental dysfunction of cervical region: Status: Acute (2) Segmental dysfunction of lumbar region: Status: Acute (3) Segmental and somatic dysfunction of thoracic region: Status: Acute (4) Segmental and somatic dysfunction of pelvic region: Status: Acute (5) Scoliosis: Status: Chronic Qualifiers: Scoliosis type: idiopathic Idiopathic scoliosis type: other Spinal region: thoracolumbar Qualified Code(s): M41.25 - Other idiopathic scoliosis, thoracolumbar region (6) Back pain: Status: Acute Qualifiers: Back pain location: low back pain Chronicity: acute Back pain laterality: bilateral Sciatica presence: without sciatica Qualified Code(s): M54.50 - Low back pain, unspecified Orders: Orders Chiropractic Treatments Today M99.01 - Segmental and somatic dysfunction of cervical region, M99.02 - Segmental and somatic dysfunction of thoracic region, M99.03 - Segmental an (more content not included)... Normal [facility] Chiropractic Reporton 2024 Chiropractic Report [facility] [address] [place] [address] OFFICE VISIT Date of Service: 10/30/24 MR#: [id number] Acct: [id number] Name: NATA QUEZADA Rep #: [id number] : 2000 Provider: TIRSO Mina Age/Sex: 23/F Location: [facility] Status: Signed Intake Vital Signs 09/15/24 13:18 Height 5 ft 5 in Intake Visit Reasons: Back pain Chief Complaint: Back pain Is patient in pain?: Yes (neck upper back ) Pain scale (1-10): 6 Allergies No Known Allergies Allergy (Unverified 10/30/24 15:32) Medications ???Medication ???Instructions ???Recorded ???Confirmed ???Type NK 08/28/24 10/30/24 History PFSH Medical History Segmental dysfunction of lumbar region Segmental dysfunction of cervical region Migraines Surgical History History of repair of congenital cleft palate History of tonsillectomy History of surgical procedure on maxillary sinus History of tympanoplasty Family History Father Age: 45 Arthritis Mother Age: 42 Anxiety Depression Aunt Age: 34 Autoimmune disorder Uncle Age: 55 CVA (cerebral vascular accident) Grandmother Blood clot in vein Seizures CVA (cerebral vascular accident) Grandfather Sudden cardiac Social History adopted: No household members: spouse and children number of children: 1 current occupational exposures/hazards: No pets and animals: Yes history of recent travel: No sexually active: Yes Smoking Status: Never smoker alcohol intake: never substance use type: does not use seatbelt use: always do you feel safe at home: Yes additional social history: Spouse - Damion HPI Back pain Chief Complaint: Upper and lower Back pain Visit Number: 2 Details: Nata Quezada a 23 yr old F here today to f/u on neck, upper and low back pain. Pt. c/o neck stiffness that is slightly worse on the right side. She rates her pain 6/10 and states it extends into her upper back. She also complains of low back tenderness to touch. Pt treats pain at home with heat and has been doing the stretches she was shown which is helpful in relieving some of her pain and stiffness. Patient denies new injury, numbness, tingling, or radiculopathy. She reports chiropractic adjustments are helpful in relieving her pain and discomfort. 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 factors: Information Services Manager Pain Quality: aching and other (stiff) Exam Musc General: Yes normal gait, joint tenderness and decreased range of motion; No normal posture or muscle weakness Cervical Spine: Yes loss of normal cervical lordosis, Yes cervical muscular tenderness right greater than left diffuse , Yes cervical spasm right greater than left lower trapezius and paracervical muscles and Yes misalignment misalignment: C2, C5, C6 and C7 Thoracic/Lumber: No thoracic and lumbar spine normal to inspection, Yes pain with thoraco-lumbar ROM with lateral flexion to the right, with rotation to the right and other (extension), Yes paraspinal tenderness on the right greater than left (thoracolumbar), Yes scoliosis (R thoracic scoliosis), Yes thoraco-lumbar spasm on the right greater than left (trap, rhomboid, paraspinal T2-T12) and Yes misalignment T2, T3, T4, T8, T9, T10, L3, L4, L5 and LIL Sacroiliac joints: on the left tender to palpation Office Procedures Procedures - Chiropractic Procedures Manipulation: Cervical C2 and C6, Lumbar L3, Thoracic T2, T5 and T10 and Pelvis LIL Manipulation: 3-4 regions Traction, Mechanical: Yes Patient Response: positive Assessment and Plan Assessment and Plan (1) Segmental dysfunction of cervical region: Status: Acute (2) Segmental dysfunction of lumbar region: Status: Acute (3) Segmental and somatic dysfunction of thoracic region: Status: Acute (4) Segmental and somatic dysfunction of pelvic region: Status: Acute (5) Scoliosis: Status: Chronic Qualifiers: Scoliosis type: idiopathic Idiopathic scoliosis type: other Spinal region: thoracolumbar Qualified Code(s): M41.25 - Other idiopathic scoliosis, thoracolumbar region Orders: Orders Chiropractic Treatments Today M99.01 - Segmental and somatic dysfunction of cervical region, M99.02 - Segmental and somatic dysfunction of thoracic region, M99.03 - Segmental and somatic dysfunction of lumbar region, M99.05 - Segmental and somatic dysfunction of pelvic region Plan Patient was treated without incident. Continue care as needed. Plan Details Goals Barriers: Goals Decrease pain Improve ROM Decrease spasm Barriers Scoliosis Follo (more content not included)... Normal [facility] CBC W/Diff, Automatedon 10-05 Absolute Lymph 2.14 X10 3/uL Normal 0.83-4.51 [facility] Comment on above: Performed By: #### L 506.0400, L506.1000, L500.4050, L501.9520, L100.0100 #### [facility] [address] [place], [address] Absolute Neut 4.4 X10 3/uL Normal 2.0-7.7 [facility] Comment on above: Performed By: #### L 506.0400, L506.1000, L500.4050, L501.9520, L100.0100 #### [facility] [address] [place], [address] Basophils/100 WBC (Bld) 0.6 % Normal 0-1 [facility] Comment on above: Performed By: #### L 506.0400, L506.1000, L500.4050, L501.9520, L100.0100 #### [facility] [address] [place], [address] Eosinophils/100 WBC (Bld) 1.0 % Normal 0-5 [facility] Comment on above: Performed By: #### L 506.0400, L506.1000, L500.4050, L501.9520, L100.0100 #### [facility] [address] [place], [address] Erythrocyte distribution width (RBC) [Ratio] 12.3 % Normal 11.6-14.6 [facility] Comment on above: Performed By: #### L 506.0400, L506.1000, L500.4050, L501.9520, L100.0100 #### [facility] [address] [place], [address] Hematocrit (Bld) [Volume fraction] 43.7 % Normal 37-47 [facility] Comment on above: Performed By: #### L 506.0400, L506.1000, L500.4050, L501.9520, L100.0100 #### [facility] [address] [place], [address] Hemoglobin (Bld) [Mass/Vol] 14.6 g/dL Normal 12.0-15.0 [facility] Comment on above: Performed By: #### L 506.0400, L506.1000, L500.4050, L501.9520, L100.0100 #### [facility] [address] [place], [address] IG% 0.300 Normal 0.0-0.9 [facility] Comment on above: Result Comment: IG% - Immature Granulocytes (promyelocytes, myelocytes and metamyelocytes) > 1% indicates that a LEFT SHIFT is Present. Performed By: #### L 506.0400, L506.1000, L500.4050, L501.9520, L100.0100 #### [facility] [address] [place], [address] Lymphocytes/100 WBC (Bld) 29.8 % Normal 19-41 [facility] Comment on above: Performed By: #### L 506.0400, L506.1000, L500.4050, L501.9520, L100.0100 #### [facility] [address] [place], [address] MCH (RBC) [Entitic mass] 28.3 pg Normal 27.0-32.0 [facility] Comment on above: Performed By: #### L 506.0400, L506.1000, L500.4050, L501.9520, L100.0100 #### [facility] [address] [place], [address] MCHC (RBC) [Mass/Vol] 33.4 g/dL Normal 32-36 [facility] Comment on above: Performed By: #### L 506.0400, L506.1000, L500.4050, L501.9520, L100.0100 #### [facility] [address] [place], [address] MCV (RBC) [Entitic vol] 84.7 fL Normal 81-99 [facility] Comment on above: Performed By: #### L 506.0400, L506.1000, L500.4050, L501.9520, L100.0100 #### [facility] [address] [place], [address] Monocytes/100 WBC (Bld) 6.8 % Normal 0-10 [facility] Comment on above: Performed By: #### L 506.0400, L506.1000, L500.4050, L501.9520, L100.0100 #### [facility] [address] [place], [address] Neutrophils/100 WBC (Bld) 61.5 % Normal 47-70 [facility] Comment on above: Performed By: #### L 506.0400, L506.1000, L500.4050, L501.9520, L100.0100 #### [facility] [address] [place], [address] Nucleated RBC (Bld) [#/Vol] 0 10*3/uL Normal 0-5 [facility] Comment on above: Performed By: #### L 506.0400, L506.1000, L500.4050, L501.9520, L100.0100 #### [facility] [address] [place], [address] Platelet mean volume (Bld) [Entitic vol] 10.5 fL Normal 6.2-12.0 [facility] Comment on above: Performed By: #### L 506.0400, L506.1000, L500.4050, L501.9520, L100.0100 #### [facility] [address] [place], [address] Platelets (Bld) [#/Vol] 287 10*3/uL Normal 150-450 [facility] Comment on above: Performed By: #### L 506.0400, L506.1000, L500.4050, L501.9520, L100.0100 #### [facility] [address] [place], [address] RBC (Bld) [#/Vol] 5.16 10*6/uL Normal 4.2-5.4 [facility] Comment on above: Performed By: #### L 506.0400, L506.1000, L500.4050, L501.9520, L100.0100 #### [facility] [address] [place], [address] RDW SD 37.6 fl Normal 35.1-43.9 [facility] Comment on above: Performed By: #### L 506.0400, L506.1000, L500.4050, L501.9520, L100.0100 #### [facility] [address] [place], [address] WBC (Bld) [#/Vol] 7.2 10*3/uL Normal 4.4-11.0 [facility] Comment on above: Performed By: #### L 506.0400, L506.1000, L500.4050, L501.9520, L100.0100 #### [facility] [address] [place], [address] Comprehensive Metabolic Prof ilon 10-25-2024 Albumin [Mass/Vol] 4.1 g/dL Normal 3.2-5.0 [facility] Comment on above: Performed By: #### L 506.0400, L506.1000, L500.4050, L501.9520, L100.0100 #### [facility] [address] [place], [address] Albumin/Globulin [Mass ratio] 1.1 {ratio} Normal 0.9-2.4 [facility] Comment on above: Performed By: #### L 506.0400, L506.1000, L500.4050, L501.9520, L100.0100 #### [facility] [address] [place], [address] ALK P 131 U/L High 45-117 [facility] Comment on above: Performed By: #### L 506.0400, L506.1000, L500.4050, L501.9520, L100.0100 #### [facility] [address] [place], [address] ALT [Catalytic activity/Vol] 24 U/L Normal 13-56 [facility] Comment on above: Performed By: #### L 506.0400, L506.1000, L500.4050, L501.9520, L100.0100 #### [facility] [address] [place], [address] AST [Catalytic activity/Vol] 14 U/L Low 15-37 [facility] Comment on above: Performed By: #### L 506.0400, L506.1000, L500.4050, L501.9520, L100.0100 #### [facility] [address] [place], [address] Bilirubin [Mass/Vol] 0.30 mg/dL Normal 0.20-1.00 [facility] Comment on above: Result Comment: For patients on eltrombopag therapy, use of Dimension Mccormick TBIL is not recommended. Performed By: #### L 506.0400, L506.1000, L500.4050, L501.9520, L100.0100 #### [facility] [address] [place], [address] BUN/CRE 16.8 RATIO Normal 10-20 [facility] Comment on above: Performed By: #### L 506.0400, L506.1000, L500.4050, L501.9520, L100.0100 #### [facility] [address] [place], [address] CA,Total 9.2 mg/dL Normal 8.5-10.1 [facility] Comment on above: Performed By: #### L 506.0400, L506.1000, L500.4050, L501.9520, L100.0100 #### [facility] [address] [place], [address] Chloride [Moles/Vol] 100 mmol/L Normal 98-107 [facility] Comment on above: Performed By: #### L 506.0400, L506.1000, L500.4050, L501.9520, L100.0100 #### [facility] [address] [place], [address] CO2 [Moles/Vol] 27.0 mmol/L Normal 21.0-32.0 [facility] Comment on above: Performed By: #### L 506.0400, L506.1000, L500.4050, L501.9520, L100.0100 #### [facility] [address] [place], [address] Creatinine [Mass/Vol] 0.83 mg/dL Normal 0.55-1.02 [facility] Comment on above: Result Comment: The validity of the calculated GFR GFRAA in patients over 70 years has not been determined. Clinical correlation is essential. Performed By: #### L 506.0400, L506.1000, L500.4050, L501.9520, L100.0100 #### [facility] [address] [place], [address] EST GFR - AA 110 mL/min Normal >60 [facility] Comment on above: Result Comment: Afri can [place] GFR Calc Performed By: #### L 506.0400, L506.1000, L500.4050, L501.9520, L100.0100 #### [facility] [address] [place], [address] GAP 9 Normal 5-15 [facility] Comment on above: Performed By: #### L 506.0400, L506.1000, L500.4050, L501.9520, L100.0100 #### [facility] [address] [place], [address] GFR/1.73 sq M.predicted among non-blacks MDRD (S/P/Bld) [Vol rate/Area] 91 mL/min/{1.73_m2} Normal >60 [facility] Comment on above: Result Comment: Non- GFR Calc Performed By: #### L 506.0400, L506.1000, L500.4050, L501.9520, L100.0100 #### [facility] [address] [place], [address] Globulin (S) [Mass/Vol] 3.7 g/dL Normal 2.2-4.2 [facility] Comment on above: Performed By: #### L 506.0400, L506.1000, L500.4050, L501.9520, L100.0100 #### [facility] [address] [place], [address] Glucose [Mass/Vol] 89 mg/dL Normal 74-106 [facility] Comment on above: Performed By: #### L 506.0400, L506.1000, L500.4050, L501.9520, L100.0100 #### [facility] [address] [place], [address] Potassium [Moles/Vol] 3.8 mmol/L Normal 3.5-5.1 [facility] Comment on above: Performed By: #### L 506.0400, L506.1000, L500.4050, L501.9520, L100.0100 #### [facility] [address] [place], [address] Sodium [Moles/Vol] 137 mmol/L Normal 136-145 [facility] Comment on above: Performed By: #### L 506.0400, L506.1000, L500.4050, L501.9520, L100.0100 #### [facility] [address] [place], [address] T PROT 7.8 g/dL Normal 6.4-8.2 [facility] Comment on above: Performed By: #### L 506.0400, L506.1000, L500.4050, L501.9520, L100.0100 #### [facility] [address] [place], [address] Urea nitrogen [Mass/Vol] 14 mg/dL Normal 7-18 [facility] Comment on above: Performed By: #### L 506.0400, L506.1000, L500.4050, L501.9520, L100.0100 #### [facility] [address] [place], [address] T4 Free Directon 10-25-2024 T4 FREE DIRECT 1.10 ng/dL Normal 0.76-1.46 [facility] Comment on above: Performed By: #### L 506.0400, L506.1000, L500.4050, L501.9520, L100.0100 ####[facility] [address] [place], [address] Thyroid Stim Hormone (TSH)on 10-25-2024 TSH 1.480 uIU/mL Normal 0.358-3.740 [facility] Comment on above: Performed By: #### L 506.0400, L506.1000, L500.4050, L501.9520, L100.0100 #### [facility] [address] [place], [address] Vitamin D,25 Hydroxyon 10-25 Vitamin D 25-OH 18.1 ng/mL Normal [facility] Comment on above: Result Comment: Linda min D 25(OH) Status Range Deficiency <20 ng/mL (50nmol/L) Insufficiency 20 - 30 ng/mL (50 - 75 nmol/L) Sufficiency 30 - 100 ng/mL (75 - 250 nmol/L) Toxicity >100 ng/mL (>250 nmol/L) Performed By: #### L 506.0400, L506.1000, L500.4050, L501.9520, L100.0100 #### [facility] [address] [place], [address] Chiropractic Reporton 2024 Chiropractic Report [facility] [address] [place] [id number] OFFICE VISIT Date of Service: 10/09/24 MR#: [id number] Acct: [id number] Name: NATA QUEZADA Rep #: [id number] : 2000 Provider: TIRSO Mina Age/Sex: 23/F Location: [facility] Status: Signed with Addenda ADDENDUM by TIRSO Cm on 11/22/24 at 0954 Assessment Plan (1) Back pain: QUALIFIERS: Back pain location: low back pain Chronicity: acute Back pain laterality: bilateral Sciatica presence: without sciatica Qualified Code(s): M54.50 - Low back pain, unspecified 11/22/24 0954 Date Vani Cm D.C. cc: * Signed Intake Vital Signs 08/28/24 11:28 09/15/24 13:18 Height 5 ft 5 in 5 ft 5 in Intake Visit Reasons: Back pain Chief Complaint: Back pain Is patient in pain?: Yes (Neck, UBP) Pain scale (1-10): 5 Allergies No Known Allergies Allergy (Unverified 10/09/24 13:13) Medications ???Medication ???Instructions ???Recorded ???Confirmed ???Type NK 08/28/24 10/09/24 History PFSH Medical History Segmental dysfunction of lumbar region Segmental dysfunction of cervical region Migraines Surgical History History of repair of congenital cleft palate History of tonsillectomy History of surgical procedure on maxillary sinus History of tympanoplasty Family History Father Age: 45 Arthritis Mother Age: 42 Anxiety Depression Aunt Age: 34 Autoimmune disorder Uncle Age: 55 CVA (cerebral vascular accident) Grandmother Blood clot in vein Seizures CVA (cerebral vascular accident) Grandfather Sudden cardiac Social History adopted: No household members: spouse and children number of children: 1 current occupational exposures/hazards: No pets and animals: Yes history of recent travel: No sexually active: Yes Smoking Status: Never smoker alcohol intake: never substance use type: does not use seatbelt use: always do you feel safe at home: Yes additional social history: Spouse - Damion HPI Back pain Chief Complaint: Upper and lower Back pain Visit Number: 1 Details: Nata Quezada a 23 yr old F presents here for f/u of upper and low back pain with occasional neck pain. She states the adjustment help alleviate her pain for about 3 days after each adjustment. She complains of upper back pain and stiffness. She also complains of a "pinching" sensation in her right shoulder. She also complains of low back and stiffness. She rates her pain 5/10. Pt treats pain at home with heat and stretching. Patient denies any new injury, numbness, tingling, and radiculopathy. 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 factors: Information Services Manager Pain Quality: aching and other (stiff) Exam Musc General: Yes normal gait, joint tenderness and decreased range of motion; No normal posture or muscle weakness Cervical Spine: Yes loss of normal cervical lordosis, Yes cervical muscular tenderness bilateral lower , Yes cervical spasm right greater than left lower trapezius and paracervical muscles and Yes misalignment misalignment: C2, C5, C6 and C7 Thoracic/Lumber: No thoracic and lumbar spine normal to inspection, Yes pain with thoraco-lumbar ROM with lateral flexion to the right, with rotation to the right and other (extension), Yes paraspinal tenderness on the right greater than left (thoracolumbar), Yes scoliosis (R thoracic scoliosis- confirm w xray), Yes thoraco-lumbar spasm on the right greater than left (trap, rhomboid, paraspinal T2-T12) and Yes misalignment T2, T3, T4, T8, T9, T10, L3, L4, L5 and LIL Sacroiliac joints: on the left tender to palpation Office Procedures Procedures - Chiropractic Procedures Manipulation: Cervical C2 and C6, Lumbar L3, Thoracic T2, T5 and T10 and Pelvis LIL Manipulation: 3-4 regions Hot and/or cold packs: Yes Patient Response: positive Assessment and Plan Assessment and Plan (1) Segmental dysfunction of lumbar region: Status: Acute (2) Segmental dysfunction of cervical region: Status: Acute (3) Segmental and somatic dysfunction of thoracic region: Status: Acute (4) Segmental and somatic dysfunction of pelvic region: Status: Acute (5) Scoliosis: Status: Chronic Qualifiers: Idiopathic scoliosis type: other Scoliosis type: idiopathic Spinal region: thoracolumbar Qualified Code(s): M41.25 - Other idiopathic scoliosis, thoracolumbar region Orders: Orders Chiropractic Treatments Today M41.25 - Other idiopathic scoliosis, thoracolumbar region, M99.01 - (more content not included)... Normal [facility] PAP I-G w/rfx hrHPV-Aptimaon 09-23-2024 ADEQ Comment Normal . [facility] Comment on above: Order Comment: Wiley escobedo Comment: [id number] Comment: Source.............Cervix;EndocervixSpecimen Comment: LMP / Prev Treat...[id number] Comment: No. of containers..01 ThinPrep Vial Result Comment: Sati sfactory for evaluation. No endocervical component is identified. Performed By: #### L 7400.0353 ####[facility] [address] [facility]. [place], [place], [id number] COMM . Normal . [facility] Comment on above: Order Comment: Wiley escobedo Comment: [id number] Comment: Source.............Cervix;EndocervixSpecimen Comment: LMP / Prev Treat...[id number] Comment: No. of containers..01 ThinPrep Vial Performed By: #### L 7400.0353 ####[facility] [address] [facility]. [place], [place], [id number] COMMENT Comment Normal . [facility] Comment on above: Order Comment: Wiley escobedo Comment: [id number] Comment: Source.............Cervix;EndocervixSpecimen Comment: LMP / Prev Treat...[id number] Comment: No. of containers..01 ThinPrep Vial Result Comment: This liquid based ThinPrep(R) pap test was screened with the use of an image guided system. Performed By: #### L 7400.0353 ####[facility] [address], [address] DIAG Comment Normal . [facility] Comment on above: Order Comment: Speci men Comment: [id number] Comment: Source.............Cervix;EndocervixSpecimen Comment: LMP / Prev Treat...[id number] Comment: No. of containers..01 ThinPrep Vial Result Comment: NEGA TIVE FOR INTRAEPITHELIAL LESION OR MALIGNANCY. Performed By: #### L 7400.0353 ####[facility] [address] [facility] [place], [address] HPV RFLX Comment Normal . [facility] Comment on above: Order Comment: Speci men Comment: [id number] Comment: Source.............Cervix;EndocervixSpecimen Comment: LMP / Prev Treat...[id number] Comment: No. of containers..01 ThinPrep Vial Result Comment: The HPV DNA reflex criteria were not met with this specimen result therefore, no HPV testing was performed. Performed at: [address] [id number] Program Coordinator For [employer]: Sylvie Dykes MD, Phone: [phone] Performed By: #### L 7400.0353 ####[facility] [address] [place], [place], [phone] PAPSMR Comment Normal . [facility] Comment on above: Order Comment: Speci men Comment: [id number] Comment: Source.............Cervix;EndocervixSpecimen Comment: LMP / Prev Treat...[id number] Comment: No. of containers..01 ThinPrep Vial Result Comment: The Pap smear is a screening test designed to aid in the detection of premalignant and malignant conditions of the uterine cervix. It is not a diagnostic procedure and should not be used as the sole means of detecting cervical cancer. Both false-positive and false-negative reports do occur. Performed By: #### L 7400.0353 ####[facility] [address] [place], [address] PERFORM Comment Normal . [facility] Comment on above: Order Comment: Speci men Comment: [id number] Comment: Source.............Cervix;EndocervixSpecimen Comment: LMP / Prev Treat...[id number] Comment: No. of containers..01 ThinPrep Vial Result Comment: Shannan Fuchs, Wet Washer Machine (ASCP) Performed By: #### L 7400.0353 ####[facility] [address], [address] Brand Director Office Visit Reporton 09-15-2024 Brand Director Office Visit Report [facility] [address], [address] [place] [address] OFFICE VISIT Date of Service: 09/15/24 MR#: [id number] Acct: [id number] Name: NATA QUEZADA Rep #: [id number] : 2000 Provider: CHONG Oneill ams Age/Sex: 23/F [place] [facility] [place]: Signed Intake Vital Signs 08/28/24 11:28 09/15/24 13:15 09/15/24 13:18 Height 5 ft 5 in 5 ft 5 in 5 ft 5 in Weight: 139 lb 130 lb BMI 23.1 21.6 BP 112/70 128/84 H Blood Pressure Location Lt brachial Position Sitting Intake 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: No Is patient in pain?: No Allergies No Known Allergies Allergy (Unverified 09/15/24 13:16) Medications ???Medication ???Instructions ???Recorded ???Confirmed ???Type NK 11/25/24 12/13/24 History Is last menstrual period known: Yes Last Menstrual Period: 08/18/24 Post menopausal: No Patient : No : Yes Control Method: Yaya IUD PFSH Medical History Segmental dysfunction of lumbar region Segmental dysfunction of cervical region Migraines Surgical History History of repair of congenital cleft palate History of tonsillectomy History of surgical procedure on maxillary sinus History of tympanoplasty Family History Father Age: 45 Arthritis Mother Age: 42 Anxiety Depression Aunt Age: 34 Autoimmune disorder Uncle Age: 55 CVA (cerebral vascular accident) Grandmother Blood clot in vein Seizures CVA (cerebral vascular accident) Grandfather Sudden cardiac Social History (Updated 09/15/24 @ 13:19 by Tonya Tran) adopted: No household members: spouse and children number of children: 1 current occupational exposures/hazards: No pets and animals: Yes history of recent travel: No sexually active: Yes Smoking Status: Never smoker alcohol intake: never substance use type: does not use seatbelt use: always do you feel safe at home: Yes additional social history: Spouse - Damion History Past Pregnancies Del. Date Name GA/Weeks Outcome Route Bth Weight Infant Gen Labor Lgth Anesthesia Del Locatn Provider FOB 07/28/23 Oseas 38 live - full term [place] HPI Encounter for routine gynecological examination Details: NATA QUEZADA is a 23 year old who presents for annual exam. Last PAP: due History of abnormal PAP: Last mammogram: due at 42 History of abnormal mammogram: Colon cancer screening: due at 47 Other preventative health care screenings: no PCP Female Reproductive History Last Menstrual Period: 08/18/24 Cycle Length: 21-35 Bleeding Duration: 8 Questions: metorrhagia: No, sexually active: Yes, dyspareunia: No and PCB: No Menopausal Symptoms: No hot flashes, No night sweats, No weight change, No mood changes, No difficulty concentrating, No sleep problems and No change in libido ROS Const Constitutional: Reports system reviewed and no additional complaints, except as documented; Denies night sweats Cardio Card: Reports system reviewed and no additional complaints, except as documented Resp Resp: Reports system reviewed and no additional complaints, except as documented GI GI: Reports system reviewed and no additional complaints, except as documented : Reports system reviewed and no additional complaints, except as documented; Denies difficulty voiding, dysuria, hot flashes or urinary frequency Skin Skin/Breast: Reports system reviewed and no additional complaints, except as documented Neuro Neuro: Reports system reviewed and no additional complaints, except as documented Psych Psych: Reports system reviewed and no additional complaints, except as documented; Denies anhedonia, anxiety, change in libido, depression or difficulty concentrating Exam Const General: cooperative, healthy appearing, comfortable and no acute distress Orientation: alert, awake and oriented x3 Neck Neck: normal visual inspection and full ROM Thyroid: thyroid normal Chest Breast inspection: normal inspection of the breasts and normal inspection of the axillae Breast palpation: normal palpation of the breasts and normal palpation of the axillae Resp Effort Inspection: normal respiratory effort, able to speak in complete sentences and symmetric chest movement GI Inspection: normal to inspection Palpation: soft Rectal Exam: visual inspection normal External Female Exam: normal external appearance and normal appearance of the urethra Urethra: normal appearance of the urethra Speculum Exam - Vagina: normal appearance of the vagina and normal vaginal discharge Speculum Exam - Cervix: normal appearance of the cervix (more content not included)... Normal [facility] Chiropractic Reporton 2023 Chiropractic Report [facility] [address] [place] [address] OFFICE VISIT Date of Service: 09/11/24 MR#: [id number] Acct: [id number] Name: NATA QUEZADA Rep #: [id number] : 2000 Provider: TIRSO Mina Age/Sex: 23/F Location: [facility] [place] Status: Signed with Addenda ADDENDUM by TIRSO Cm on 10/17/24 at 0759 Assessment Plan (1) Back pain: QUALIFIERS: Back pain location: low back pain Chronicity: acute Back pain laterality: bilateral Sciatica presence: without sciatica Qualified Code(s): M54.50 - Low back pain, unspecified 10/17/24 0758 Date Vani Cm D.C. cc: * Signed Intake Vital Signs 08/28/24 11:28 Height 5 ft 5 in Weight: 139 lb BMI 23.1 BP 112/70 Blood Pressure Location Lt brachial Position Sitting Intake Visit Reasons: Back pain Chief Complaint: Back pain Is patient in pain?: Yes (upper back) Pain scale (1-10): 4 Allergies No Known Allergies Allergy (Unverified 09/11/24 13:50) Medications ???Medication ???Instructions ???Recorded ???Confirmed ???Type NK 08/28/24 09/11/24 History PFSH Medical History Segmental dysfunction of lumbar region Segmental dysfunction of cervical region Migraines Surgical History History of repair of congenital cleft palate History of tonsillectomy History of surgical procedure on maxillary sinus History of tympanoplasty Family History Father Age: 45 Arthritis Mother Age: 42 Anxiety Depression Aunt Age: 34 Autoimmune disorder Uncle Age: 55 CVA (cerebral vascular accident) Grandmother Blood clot in vein Seizures CVA (cerebral vascular accident) Grandfather Sudden cardiac Social History Smoking Status: Never smoker HPI Back pain Chief Complaint: Upper and lower Back pain Visit Number: 2 Details: Nata Quezada a pleasant 23 yr old F presents here for f/u of upper and low back pain with occasional neck pain. The last adjustment was helpful for about 2-3 days then the pain returned. She describes it as stiff and achy worse on right side. Upper back pain is rated 4/10 pain and lower back rated 3/10. Pt treats pain at home with heat and stretching. Patient denies any new injury, numbness, tingling, and radiculopathy. 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 factors: Information Services Manager Pain Quality: aching and other (stiff) Exam Musc General: Yes normal gait, joint tenderness and decreased range of motion; No normal posture or muscle weakness Cervical Spine: Yes loss of normal cervical lordosis, Yes cervical muscular tenderness bilateral diffuse , Yes cervical spasm right greater than left lower trapezius and paracervical muscles and Yes misalignment misalignment: C2, C5, C6 and C7 Thoracic/Lumber: No thoracic and lumbar spine normal to inspection, Yes pain with thoraco-lumbar ROM with lateral flexion to the right, with rotation to the right and other (extension), Yes paraspinal tenderness on the right greater than left (thoracolumbar), Yes scoliosis (R thoracic scoliosis- confirm w xray), Yes thoraco-lumbar spasm on the right greater than left (trap, rhomboid, paraspinal T2-T12) and Yes misalignment T2, T3, T4, T8, T9, T10, L3, L4, L5 and LIL Sacroiliac joints: on the left tender to palpation Office Procedures Procedures - Chiropractic Procedures Manipulation: Cervical C2 and C6, Lumbar L3, Thoracic T2, T5 and T10 and Pelvis LIL Manipulation: 3-4 regions Patient Response: positive Assessment and Plan Assessment and Plan (1) Segmental dysfunction of lumbar region: Status: Acute (2) Segmental dysfunction of cervical region: Status: Acute (3) Segmental and somatic dysfunction of thoracic region: Status: Acute (4) Segmental and somatic dysfunction of pelvic region: Status: Acute (5) Scoliosis: Status: Acute Qualifiers: Idiopathic scoliosis type: other Scoliosis type: idiopathic Spinal region: thoracolumbar Qualified Code(s): M41.25 - Other idiopathic scoliosis, thoracolumbar region Orders: Orders Chiropractic Treatments Today M41.25 - Other idiopathic scoliosis, thoracolumbar region, M99.01 - Segmental and somatic dysfunction of cervical region, M99.02 - Segmental and somatic dysfunction of thoracic region, M99.03 - Segmental and somatic dysfunction of lumbar region, M99.05 - Segmental and somatic dysfunction of pelvic region Plan Patient was treated without incident. She is showing improvement, continue care. Plan Details Goals Barriers: Goals D (more content not included)... Normal [facility] Chiropractic Reporton 2023 Chiropractic Report [facility] [place] [facility] [address] [place] [id number] OFFICE VISIT Date of Service: 08/28/24 MR#: [id number] Acct: [id number] Name: NATA QUZEADA Rep #: [id number] : 2000 Provider: TIRSO Mina Age/Sex: 23/F Location: [facility] [place] Status: Signed with Addenda ADDENDUM by TIRSO Cm on 10/17/24 at 0758 Assessment Plan (1) Back pain: QUALIFIERS: Back pain location: low back pain Chronicity: acute Back pain laterality: bilateral Sciatica presence: without sciatica Qualified Code(s): M54.50 - Low back pain, unspecified 10/17/24 0758 Date Vani Cm D.C. cc: * Signed Intake Vital Signs 08/28/24 11:28 Height 5 ft 5 in Weight: 139 lb BMI 23.1 BP 112/70 Blood Pressure Location Lt brachial Position Sitting Intake Visit Reasons: EST CARE Chief Complaint: Back pain Is patient in pain?: Yes (Neck, back) Pain scale (1-10): 4 Allergies No Known Allergies Allergy (Unverified 08/28/24 10:59) Medications ???Medication ???Instructions ???Recorded ???Confirmed ???Type NK 08/28/24 08/28/24 History PFSH Medical History (Updated 08/28/24 @ 13:[address] Vani Cm, TIRSO) Segmental dysfunction of lumbar region Segmental dysfunction of cervical region Migraines Surgical History (Updated 08/28/24 @ 10:58 by Esha Llanos) History of repair of congenital cleft palate History of tonsillectomy History of surgical procedure on maxillary sinus History of tympanoplasty Social History (Updated 08/28/24 @ 10:59 by Esha Llanos) Smoking Status: Never smoker HPI EST CARE Chief Complaint: Back pain Visit Number: 1 Details: Nata Quezada a 23 year old female presents for initial evaluation of neck and back pain. She reports a 4 year history of pain that has progressively been getting worse since her 2 years ago. She complains of neck pain and stiffness that is equal bilaterally and extends into her upper back and shoulders. She denies headaches. She also complains of lumbar/thoracic pain. The pain is equal bilaterally. She denies radiating, numbness and tingling. She also experiences bilateral glute/hip pain that started when she was . She denies previous injury or surgery. Upon waking in the morning she is very stiff and sore until she gets moving. She did see a chiropractor earlier this year and was told she has scoliosis. She describes her pain as an sharp ache. Her pain is exacerbated by taking care of her one year old son, standing or sitting for too long. She treats her pain at home with heat and stretching. Location: neck, lumbar thoracic Duration: constant Aggravating or associated factors: caring for her son, sitting, standing Relieving factors: chiro Treatment: heat, stretching Pain Quality: aching and sharp Exam Musc General: Yes normal gait, joint tenderness and decreased range of motion; No normal posture or muscle weakness Cervical Spine: Yes loss of normal cervical lordosis, Yes cervical muscular tenderness right greater than left lower and Yes pain with cervical ROM with lateral flexion to right, with rotation to right and with extension Thoracic/Lumber: No thoracic and lumbar spine normal to inspection, Yes Lasegue's sign negative, Yes straight leg raise negative bilaterally, Yes pain with thoraco-lumbar ROM with lateral flexion to the right, with rotation to the right and other (extension), Yes paraspinal tenderness on the right greater than left (thoracolumbar), Yes thoraco-lumbar ROM limited with lateral flexion to the right and with rotation to the right, Yes scoliosis (R thoracic scoliosis-confirm w xray), Yes thoraco- lumbar spasm on the right greater than left (trap, rhomboid, paraspinal T2-T12) and Yes misalignment T2, T3, T4, T8, T9, T10, L3, L4, L5 and LIL Sacroiliac joints: on the left tender to palpation Neuro General: patient alert, patient awake, patient oriented x3, gait normal, moves all extremities, normal light touch, pain and propioception and no focal motor deficits Cranial Nerves: CN's II-XI intact bilaterally Cognition: normal cognition Speech: speech normal Gait: normal gait Motor: muscle tone normal throughout Sensory Exam: no sensory deficits noted Ortho Test CERVICAL Compression pain: Negative Distraction pain: relief Joshua's pain: Negative Valsalvas: Negative Shoulder depression pain: Right THORACIC Lucero: Positive (Right) LUMBAR Kemps: Positive and Right Valsalvas: Negative SLR: Negative Iliac Compression: Negative Office Procedures Procedures - Chiropractic Procedures Manipulation: Cervical C2 and C6, Lumbar L3, Thoracic T2, T5 and T10 and Pelvis LIL Manipulation: 3-4 regions Assessment and Plan Assessment and Plan (1) (more content not included)... Normal [facility] US Pelvison 07-12-2024 Indication Localization of IUD Impression Normal appearing anteverted uterus that measures 83 mm x 36 mm x 51 mm. Endometrium measures 13.1 mm. Normal endometrial contour. 3D rendering of the uterus confirms the proper location of the IUD within the endometrial cavity. Normal appearing left ovary. Right ovary contains a 6 x 6 x 7 mm hyperechoic avascular solid lesion without shadowing. No adnexal masses were observed. There is no free fluid visualized in the peritoneal cavity. Review of images from obstetric ultrasound on 01/25/2023 indicates that right ovary had a normal appearance at that time. Recommendations O-RADS 3 right ovarian lesion, possibly a dermoid cyst. Follow up ultrasound is recommended in 6 months. Menstrual History LMP on 05/30/2024 Method Transabdominal, transvaginal, 3D ultrasound examination, Color Doppler examination. View: Adequate visualization Uterus Uterus: Visualized Uterus position: anteverted Description of uterine malformations: none Myometrium: normal Cervix details: normal Uterus length 83 mm Uterus width 51 mm Uterus height 36 mm Uterus Vol 79.2 cm Endometrial thickness, total 13.1 mm Fibroids: No fibroids identified IUCD Position control IUCD type: Paragard. Location: positioned correctly at the fundus of the uterus, Right Ovary Rt ovary: Visualized Rt ovary morphology: premenopausal normal follicular Rt ovary D1 32 mm Rt ovary D2 26 mm Rt ovary D3 16 mm Rt ovary Vol 7.0 cm Rt ovarian cyst(s): Cysts identified Rt ovarian cyst D1 6 mm Rt ovarian cyst D2 5 mm Rt ovarian cyst D3 7 mm Rt ovarian cyst mean 6.0 mm Rt ovarian cyst vol 0.110 cm Rt ovarian cyst findings: Solid lesion, smooth borders, without vascularity Left Ovary Lt ovary: Visualized Lt ovary morphology: premenopausal normal follicular Lt ovary D1 17 mm Lt ovary D2 27 mm Lt ovary D3 27 mm Lt ovary Vol 6.6 cm Cul de Sac Visualized. no free fluid visualized Performed By: Delaney Gong RDMS Read By: Elizabeth Robertson M.D. 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 Nata QUEZADA presents today for IUD check. She had a Paraguard placed on 10/01/2023. She has had pain since placement. Patient reported ultrasound 07/11/2024, reported unable to locate strings. REVIEW OF SYSTEMS: PAIN ASSESSMENT: Negative for pain, history of chronic pain, or current treatment for a chronic pain condition. SENSITIVE EXAM: The sensitive examination was discussed with the Patient or Patient's Authorized Elevator Tender. As applicable, any other physician, advance practice provider, medical student, or other health professional student that will be observing or involved in the sensitive examination for educational or training purposes was discussed with the Patient or Authorized Elevator Tender. The Patient or Authorized Elevator Tender has agreed to proceed with the sensitive examination. (Sensitive examination includes inspection and/or palpation of the breasts, pelvis, prostate and anorectal regions). PHYSICAL EXAMINATION: LMP 01/04/2024 ABDOMEN:soft, non-tender, no masses, no hepatosplenomegaly, and no lymphadenopathy EXTERNAL GENITALIA: Normal genitalia and Bartholins, Urethra, Sken'e normal CERVIX: smooth, no lesions. IUD strings visible. UTERUS: normal size ADNEXA: negative for tenderness or masses IMPRESSION/PLAN: IUD correctly positioned. Linda Márquez APRN.FOOD AND BEVERAGE SERVER Medical Decision Making: Problems: Low: Acute, uncomplicated illness or injury Risk: Low: Low risk from testing/treatment Medical Decision Making Level: 3 - Low Allergies As of Date: 07/11/2024 (No Known Allergies) Date Reviewed: 07/11/2024 Reviewed by: Aura Lowry LPN - Fully Assessed Primary Visit Diagnosis:Surveillance of previously prescribed intrauterine contraceptive device [Z30.431] Prescriptions as of 07/11/2024 - copper (PARAGARD) 380 square mm intrauterine device 1 Intra Uterine Device by INTRAUTERINE route as directed. 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 Disposition: Return in 1 year (on 07/11/2025) for Annual Exam. Follow-up and Disposition History for Encounter Date Provider Department Center 07/11/2024 [id number], RENEE LEATHA Gaytan Encounter Status:Closed by LINDA MÁRQUEZ on 07/11/24 Normal [facility] US Pelvison 07-11-2024 Radiology Study observation (narrative) [place] Urine Cultureon 05-18-2024 [facility] Below infection leve l. Presumptive E. coli [place] Count <1000 Normal [facility] Comment on above: Performed By: #### M [id number] #### [facility] [address], [place], [id number] Urine Cultureon 04-30-2024 U[facility] Presumptive E. coli [place] Count 11,000-25,000 Presumptive E. coli: REACTION Ampicillin Islt DEVANG >=32 R Ampicillin+Sulbac Islt DEVANG 16 I ceFAZolin Islt DEVANG <=4 S Cefepime Islt DEVANG <=0.12 S cefTRIAXone Islt DEVANG <=0.25 S Ciprofloxacin Islt DEVANG <=0.25 S Ertapenem Islt DEVANG <=0.12 S B-Lactamase Extended Susc Islt NEG Gentamicin Islt DEVANG >=16 R Imipenem Islt DEVANG <=0.25 S levoFLOXacin Islt DEVANG <=0.12 S Nitrofurantoin Islt DEVANG <=16 S Pip+Tazo Islt DEVANG <=4 S Tobramycin Islt DEVANG 4 S TMP SMX Islt DEVANG >=320 R Normal [facility] Comment on above: Performed By: #### M [id number] #### [facility] [address], [place], [address] Office Visit Reporton 2023 Office Visit Report [facility] [address] [place] [address] [place] [address] OFFICE VISIT Date of Service: 05/09/24 MR#: [id number] Acct: [id number] Patient: NATA QUEZADA Rep #: [id number] : 2000 Provider: Dr. Elizabeth argueta MD Age/Sex: 23/F [place] [facility] [place]: Signed Intake Intake Visit Reasons: Urine culture Chief Complaint: Urine culture Air Traffic Supervisor Required: No Is patient in pain?: No Allergies No Known Allergies Allergy (Unverified 04/28/24 14:42) Medications ???Medication ???Instructions ???Recorded ???Confirmed ???Type cephalexin 500 mg capsule 500 mg PO TID 3 days #9 caps 04/28/24 04/28/24 Rx copper 380 square mm intrauterine 1 device intrauterine ONCE 04/28/24 04/28/24 History device (ParaGard T 380A) phenazopyridine 100 mg tablet 100 mg PO TID PRN pain 3 days #9 04/28/24 04/28/24 Rx (Pyridium) tabs Is last menstrual period known: Yes Last menstrual period: 03/31/24 Post menopausal: No Patient : No Have you fallen in the past year?: No Nurse's Note: Patient presents for nurse visit with complaints of burning with urination. UA positive for Leukocytes, moderate blood, and small amount of ketones. Dr. Alton rosenthal. Urine sent for culture. Assessment and Plan Assessment and Plan (1) UTI (urinary tract infection): Status: Acute Medications: New cephalexin space evenly during waking hours 500 mg PO TID 3 days 9 caps 0RF phenazopyridine (Pyridium) 100 mg PO TID 3 days PRN 9 tabs 0RF pain Clinical Quality Measures Falls Risk Screening/Assistive Devices Have you fallen in the past year?: No 04/28/24 1550 Date Elizabeth Dang MD [facility] Signature: Date (if applicable) CC: Normal [facility] UA DIP, URINE (POC)on 2023 BILIRUBIN UA (POCT) Small Abnormal Negative [facility] CLARITY UA (POCT) Clear [facility] COLOR UA (POCT) Yellow [place] GLUCOSE UA (POCT) Negative Negative mg/dL [facility] Hemoglobin Ql (U) Moderate Abnormal Negative [facility] KETONE UA (POCT) Negative Negative [facility] (PO[facility]) Negative Negative [place] NITRITE UA (POCT) Positive Abnormal Negative [facility] PH UA (POCT) 6.0 4.5 - 8.0 [place] Protein Ql (U) 30 mg/dL Abnormal Negative mg/dL [facility] SPECIFIC GRAVITY UA (POCT) >=1.030 1.005 - 1.030 [place] UROBILINOGEN UA (POCT) 0.2 E.U./dL Normal E.U./dL [place] CNPNon 08-20-2023 CNPN Telephone ([id number]) NATA PENALOZA ([id number]) 02 [facility] Date Time Provider Department 08/20/23 ADILIA KIRKPATRICK [id number] During your visit today, we recorded the following information about you: Adilia Kirkpatrick RN 08/20/2023 3:03 PM Signed OB Post Discharge Patient Call Back: Date: 08/20/2023 Patient Name: Nata Penaloza : 2000 Delivery Summary: Oseas Quezada [[id number]] Delivery Information: Delivery Date: 07/28/23 Delivery type: Vaginal, Spontaneous Delivering Clinician: Yodit Fuchs MD Vacuum Used: No Forceps Used: No Shoulder Dystocia Present: No Lacerations: 1st Episiotomy: None [place]: Gender: Male Weight (grams): 2772 g One Minute : 9 Five Minute : 9 Patient was contacted after her inpatient discharge from [facility]. She reported the following as it relates to her recovery and hospital experience: General Physical: We discussed how she was doing physically. She reported the following: Bleeding: mild Pain: no Other Signs or Symptoms: No Overall Mood: Patient was informed that Baby Blues are feelings of sadness that a woman may experience in the first few days after having a baby. Baby Blues can happen 2-3 days after delivery and can last up to two weeks. These feelings usually go away on their own and does not require treatment. Tell your doctor if you have sad feelings that last longer than two weeks. He/she may want to check you for a more serious condition called Post Depression (PPD). This can occur as early as one week and up to one year after giving . PPD warning signs include: Thinking of hurting yourself of your baby Feeling out of control, unable to care for self or baby Feeling depressed or sad most of the day every day Having trouble sleeping or sleeping too much Having trouble bonding with your baby Safe Sleep: I reviewed safe sleep environments for infants and the ABC's (alone back crib) for sleeping with the patient. She reported the following. The infant(s) sleeps in: Bassinet Baby in need of a crib/Ppdj-hxd-Vurx: No Baby's feeding: Method: Human milk only. Breast Feeding Problems: Per Nata, no problems BF but is also starting to pump and feed the EBM back to baby via bottle. Frequency: Within Normal Limits Education: N/A Baby's elimination habits: Average wet diapers: Within Normal Limits Average dirty diapers: Within Normal Limits Education: N/A Follow-up appointments: Scheduled appointment with a manager quality compliance: Has seen Scheduled a follow up appointment with OB provider: Has seen Suggestions/Concerns: Things that could have been done better during your stay: N/A Current concerns: N/A Referral(s): Patient referred to: Nata was given the department's phone number as she stated that she did not have it incase she may need it in the future. Adilia Kirkpatrick RN Allergies As of Date: 08/20/2023 (No Known Allergies) Date Reviewed: 08/19/2023 Reviewed by: Elysia Collier MD - Fully Assessed Reason for Visit: Hospital F/U [57] Prescriptions as of 08/20/2023 - Vitamin w/ Iron ( VITAMIN PLUS LOW IRON) 27 mg iron- 1 mg Take 1 tablet by mouth once daily. 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] 07/17/2022 Gestational hypertension [O13.9] 07/26/2023 38 weeks gestation of [Z3A.38] 07/26/2023 07/29/2023 Encounter for induction of labor [Z34.90] 07/27/2023 07/28/2023 Gestational hypertension, third trimester [O13.*07/27/2023 Routine follow-up [Z39.2] 07/28/2023 Hypertension complicating , delivered-*07/30/2023 Encounter Status:Closed by ADILIA KIRKPATRICK on 08/20/23 [facility] 07-30-2023 [facility] HNO ID: [id number] Author: Delaney Durand APRN.CHONG Service: Obstetrics 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 07/29/23 1521 07/29/23 1855 07/29/23 2309 07/30/23 0700 BP: 128/75 131/88 132/83 121/66 Pulse: 98 69 67 72 Resp: 18 18 18 18 Temp: 36.5 ?C (97.7 ?F) 36.6 ?C (97.9 ?F) 36.4 ?C (97.5 ?F) 36.8 ?C (98.2 ?F) TempSrc: Oral Oral Oral Oral SpO2: 99% 99% 100% 100% Weight: Height: Rhoda Foster DO DISCHARGE SUMMARY OBSTETRICS PATIENT NAME: Nata Penaloza ADMISSION DATE: 07/27/2023 DISCHARGE DATE: 07/30/2023 Attending Physician: Rhoda Foster DO Code Status: Not on file Treatment Team: Attending Provider: Rhoda Foster DO Maternal Obstetric Provider: Remi Powell Reason for Hospitalization: Intrauterine . Principal Problem: Gestational hypertension, third trimester (POA: Yes) Active Problems: Routine follow-up (POA: Unknown) Hypertension complicating , delivered-current hospitalization (POA: Yes) Resolved Problems: Encounter for induction of labor (POA: Yes) PROCEDURES/SURGERY DURING HOSPITALIZATION: Delivery Summary: Ruben Penaloza [[id number]] Delivery Information: Delivery Date: 07/28/23 Delivery type: Vaginal, Spontaneous Delivering Clinician: Yodit Fuchs MD Vacuum Used: No Forceps Used: No Shoulder Dystocia Present: No Lacerations: 1st Episiotomy: None : Gender: Male Weight (grams): 2772 g One Minute : 9 Five Minute : 9 Procedures (if applicable) Hospital Course: 22 year old female who is Day #2 from delivery as noted above. Pt's peripartum course was complicated by GHTN. The delivery was uncomplicated. Mental health issues addressed during course. Patient's stated reason for arrival: to be induced HISTORY OF THE PRESENT ILLNESS: The patient is a 22 year old female, , who is at 38w4d with an EVAN of 08/06/2023, by Last Menstrual Period dating method. Patient is here for induction for gestational hypertension. She denies headache, vision change, chest pain, shortness of breath or RUQ pain. This is otherwise uncomplicated. Good movement. Denies vaginal bleeding. Denies contractions. Denies leaking of fluid. Patient denies history of HSV or MRSA. Denies any alcohol, tobacco, or recreational drug use in this . POST DELIVERY CONTRACEPTION: Discussed post-delivery contraception options. Patient will discuss at 6wk pp visit. 07/28/23 MALE GHTN DISCHARGE 07/30/23 Consulting Teams During Hospitalization: Anesthesiology: EPIDURAL Patient Condition @ Discharge: Good Discharge Disposition: Home/Self Care Specific Concerns for Follow-up Post Discharge: Routine Care, Hypertension in , Mental Health, Anemia, Incisional/Perineal Care, and Contraceptive Plan Information Provided to Patient: Activity When You Leave the Hospital Gradually increase your activity until back to normal. Walking and stairs as tolerated. You are expected to maintain pelvic rest for six weeks post which includes no sexual activity, tampons or douching. You may drive as tolerated You may shower daily. Gently pat your perineum with a soapy washcloth and rinse. Sitz baths are also helpful, but avoid baths until your bleeding has stopped. Diet Instructions Resume a regular diet with emphasis on healthy and iron rich foods. Nursing moms need 500 EXTRA calories a day to support breast milk production. Wound/Surgical Site Care Use judy/squirt bottle to rinse your perineal area with warm water after urination or bowel movements Use judy/squirt bottle to rinse your perineal area with warm water until vaginal bleeding/drainage ceases You may spot bleed for up to six week post- Discharge Medications: Medication List START taking these medications acetaminophen 500 mg tablet Commonly known as: TYLENOL Take 2 tablets by mouth every 6 hours as needed for pain. * Blood Pressure Monitor 1 Each two times a day. * Blood Pressure Monitor Use as directed ibuprofen 600 mg tablet Commonly known as: MOTRIN Take 1 tablet by mouth every 6 hours as needed for pain. * This list has 2 medication(s) that are the same as other medications prescribed for you. Read the directions carefully, and ask your doctor or other care provider to review them with you. CONTINUE taking these medications calcium carbonate 500 mg Chew Commonly known (more content not included)... [facility] ANES POSTPROC EVALon 023 ANES POSTPROC EVAL HNO ID: [id number] Author: Huey Light APRN.CRNA Service: Anesthesiology Author Type: Nurse Sales Operations Lead Type: Anesthesia Postprocedure Evaluation Filed: 07/29/2023 7:15 AM Note Text: POST ANESTHESIA EVALUATION NOTE : 2000 Procedure Summary Date: 07/28/23 Room / Location: Anesthesia Start: 0205 Anesthesia Stop: 947 Procedure: LABOR ANALGESIA Diagnosis: Scheduled Providers: Responsible Provider: Prachi Frederick APRN.SEASONAL CLERK Anesthesia Type: epidural ASA Status: 2 Anesthesia Type: epidural Last Vitals Vitals Value Taken Time BP 07/29/23 0714 Temp 07/29/23 0714 Pulse 07/29/23 0714 Resp 07/29/23 0714 SpO2 07/29/23 0714 Ca Ruben Dale [[id number]] Baby Delivery: 07/28/2023 0948 Post Anesthesia Patient Status Patient Evaluation: floor. Anticipated Disposition: inpatient floor planned admission. Neurological Status: aware and responsive. Pulmonary Status: breathing comfortably on room air Airway Control: returned to baseline unsupported. Cardiovascular Status: stable. Pain Management: clinically adequate Postoperative Hydration: acceptable. Intraoperative Events: no significant anesthesia events Post Operative Nausea/Vomiting Status: no significant post operative nausea or vomiting Recommendation: continue current plan of care. Anesthesia Observations No Documentation SIGNATURE: Huey Light APRN.SEASONAL CLERK PATIENT NAME: Nata Dale Ca DATE: July 29, 2023 TIME: 7:14 AM CSN: [id number] [facility] CNPDyan 07-29-2023 VIRGENN Telephone (AGOBPOB) NATA PENALOZA ([id number]) 02 F [facility] Date Time Provider Department 07/29/23 DELANEY DURAND AGOBPOB During your visit today, we recorded the following information about you: Delaney Durand APRN.CNM 07/29/2023 8:24 AM Signed Please schedule a one week BP check. Thanks Delaney Baer APRN.CNM Allergies As of Date: 07/29/2023 (No Known Allergies) Date Reviewed: 07/28/2023 Reviewed by: Janiya Fisher RN - Fully Assessed Reason for Visit: Appointment [186] Cmt: Needs one week bp check for GHTN Prescriptions as of 07/29/2023 - Vitamin w/ Iron ( VITAMIN PLUS LOW IRON) 27 mg iron- 1 mg Take 1 tablet by mouth once daily. - famotidine (PEPCID) 20 mg tablet Take 1 tablet by mouth once daily. - calcium carbonate (TUMS) 500 mg chew Take 1 AND 1/2 tablets by mouth three times daily. - ferrous sulfate 325 mg (65 mg iron) tablet Take 1 tablet by mouth daily at bedtime. - omega-3 DHA-EPA (FISH OIL) 1,200 (144-216) mg capsule Take 1 capsule by mouth daily with breakfast. - calcium carbonate-vitamin D3 1,000 mg-20 mcg (800 unit) tab Take 1 tablet by mouth once daily. Facility-Administered Medications as of 07/29/2023 - glycerin-witch hussain 1 Each topical pads - benzocaine-menthol 20-0.5 % (DERMOPLAST) - dibucaine topical ointment 1% (NUPERCAINAL) - hydrocortisone topical cream 2.5% - vitamin with folic acid 1 mg 1 tablet - docusate sodium 200 mg cap(s) (COLACE) - simethicone, chewable 80 mg tab(s) (MYLICON) - calcium carbonate 500 mg chewable tab(s) (TUMS) - aluminum-magnesium hydroxide-simethicone 200-200-20 mg/5 mL 30 mL - magnesium hydroxide 400 mg/5 mL 30 mL (MOM) - bisacodyl 10 mg suppository (DULCOLAX) - measles mumps rubella MMR vaccine 0.5 mL injection (M-M-R II) - tetanus diphtheria pertussis Tdap vaccine (PF) 0.5 mL injection (ADACEL) - RhoD immune globulin 300 mcg injection (RHOPHYLAC) - ibuprofen 600 mg tab(s) (MOTRIN) - acetaminophen 1,000 mg tab(s) (TYLENOL) - miSOPROStol 25 mcg pre-split tab(s) (CYTOTEC) - oxytocin 30 unit in LR 500 mL iv infusion (INDUCTION/AUGMENTATIO N) (PITOCIN) Problem List As Of Date 07/29/2023 Noted 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] 05/17/2020 07/27/2023 Retained myringotomy tube in right ear [Z96.22] 05/17/2020 07/27/2023 Velopharyngeal insufficiency, 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]11/29/2012 07/27/2023 Cleft palate, unspecified [Q35.9] 11/29/2012 07/27/2023 Recurrent syncope [R55] 04/11/2022 07/27/2023 Malnutrition of mild degree (HCC) [E44.1] 04/12/2022 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] 07/17/2022 Gestational hypertension [O13.9] 07/26/2023 38 weeks gestation of [Z3A.38] 07/26/2023 Encounter for induction of labor [Z34.90] 07/27/2023 07/28/2023 Gestational hypertension, third trimester [O13.*07/27/2023 Routine follow-up [Z39.2] 07/28/2023 Encounter Status:Closed by DELANEY DURAND on 07/29/23 [facility] ANES PRE-OPon 07-28-2023 ANES PRE-OP HNO ID: [id number] Author: Rodri French APRN.SEASONAL CLERK Service: Anesthesiology Author Type: Nurse Sales Operations Lead Type: Anesthesia Preprocedure Evaluation Filed: 07/28/2023 2:38 AM Note Text: OB ANESTHESIA PRE-PROCEDURE ASSESSMENT PATIENT NAME: Nata Penaloza : 2000 [facility] 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 Tracheostomy tube not present Mallampati: II. TM distance: >3 FB. Neck ROM: full ROM without neurological symptoms. Mouth opening: adequate. Short neck: no. Thick neck: no Castro present: no Lip Bite Test: I Microretrognathia/Micr onagthia/Recessed Chin: Yes DENTAL Dental findings: teeth intact. Additional exam findings: no II - ANESTHESIA PLAN ASA Score: 2 The patient is not a current smoker. NPO Status: adequate Beta Neeru Monitoring Plan Monitoring plan: standard ASA. Post Procedure Analgesic Plan Postoperative analgesic plan: multimodal analgesia. Informed Consent Anesthetic risks, benefits, alternatives, personnel and consent discussed: yes. Patient / Responsible Alliance Party agrees to proceed: yes Patient / Surrogate agrees to blood products: blood products not planned DNR status not reviewed with patient and/or family prior to surgery. Significant changes in the patient condition since the History and Physical, not otherwise documented in primary service progress note: no. Potential Anesthesia issues that may suggest increased risk of complications or contraindication to planned procedure: none. Discussed the possibility of lip / dental damage: no EPIC CHART REVIEW: ACTIVE PROBLEM LIST Malnutrition of Mild Degree (Hcc) Cyclothymia Gestational Hypertension 38 Weeks Gestation of Encounter for Induction of Labor Gestational Hypertension, Third Trimester PAST MEDICAL HISTORY Diagnosis Date - Hypertension - No pertinent past medical history - UTI (urinary tract infection) PAST SURGICAL HISTORY Procedure Laterality Date - EXTENSIVE JAW SURGERY - ORTHOPEDICS SURGERY HX - RECONSTRUCT CLEFT PALATE FAMILY HISTORY Problem Relation Age of Onset - No Known Problems Mother - No Known Problems Father - No Known Problems Sister - No Known Problems Brother - No Known Problems Brother Social History Tobacco Use - Smoking status: Never Passive exposure: Never - Smokeless tobacco: Never Vaping Use - Vaping Use: Never used Substance Use Topics - Alcohol use: Not Currently Comment: social - Drug use: Never Vitamin w/ Iron ( VITAMIN PLUS LOW IRON) 27 mg iron- 1 mg, Take 1 tablet by mouth once daily., Disp: 90 tablet, Rfl: 3, 07/26/2023 at 2200 calcium carbonate (TUMS) 500 mg chew, Take 1 AND 1/2 tablets by mouth three times daily., Disp: 60 tablet, Rfl: 1, 07/26/2023 at 2200 famotidine (PEPCID) 20 mg tablet, Take 1 tablet by mouth once daily., Disp: 40 tablet, Rfl: 1, Unknown ferrous sulfate 325 mg (65 mg iron) tablet, Take 1 tablet by mouth daily at bedtime., Disp: 90 tablet, Rfl: 2, Unknown omega-3 DHA-EPA (FISH OIL) 1,200 (144-216) mg capsule, Take 1 capsule by mouth daily with breakfast., Disp: 90 capsule, Rfl: 2, Unknown calcium carbonate-vitamin D3 1,000 mg-20 mcg (800 unit) tab, Take 1 tablet by mouth once daily., Disp: 90 tablet, Rfl: 2, Unknown Inpatient medications reviewed in EPIC I have interviewed and examined the patient. I have reviewed the medical record and/or the pre-anesthesia evaluation, pertinent labs, and test results. This contains updated information obtained within 48 hours of Surgery/Procedure. SIGNATURE: Rodri French APRN.SEASONAL CLERK PATIENT NAME: Nata Penaloza DATE: July 28, 2023 TIME: 2:37 AM : 2000 [facility] LD NOTEon 07-28-2023 LD NOTE HNO ID: [id number] Author: An Azevedo MD Service: Obstetrics Author Type: Resident Type: LANDD Delivery Note Filed: 07/28/2023 10:35 AM Note Text: Attestation signed by Yodit Fuchs MD at 07/29/2023 3:48 PM Attestation: I was present for the critical and garcia portions of the delivery on 07/28/2023 and I was immediately available to provide assistance. Yodit Fucsh MD OBSTETRICS DELIVERY SUMMARY - VAGINAL DELIVERY Gestational Age at Delivery: 38w5d Service Date: 07/28/2023 Service Time: 947 Labor Events Rupture Date: 07/28/2023 Rupture Time: 4:40 AM Total Time from ROM to Delivery: 5h 08m Rupture Type: Prelabor ROM before Labor Onset GA >/= 37 wks Total Hours from ROM to Onset of Labor 1.33 hours Fluid Color: Clear Fluid Odor: No Odor Induction: Yes Induction Method: Misoprostol;Cervical Ripening Balloon (CRB);Oxytocin;AROM Ruben Penaloza [[id number]] Episiotomy/Laceration: Episiotomy: None Lacerations: 1st Perineal Repair Completed: Yes Sutures Used: 3-0 Rapid Absorbable, 4-0 Polyglactin 910 Date and Time of : Date of : 07/28/23 Time of : 947 Delivery Information: Primary Reason for Delivery : Hypertension Additional Clinicial Indicator(s) for delivery: N/A Hypertension Type: Gestational Delivery type: Vaginal, Spontaneous Intrapartum Complications: None Delivery between 24 - 34 weeks?: No Shoulder Dystocia Present: No Vacuum Used: No Forceps Used: No Presentation AND Position Presentation: Vertex Version Attempted: No Position: MANJULA Cord: Complications: None Delayed Cord Clamping: Greater than 60 sec Placenta: Delivered: 07/28/2023 9:53 AM Removal: Spontaneous Appearance: Intact Anesthesia: Method: Epidural Measurements, Apgars: Resuscitation Team Present: No I/O Blood Loss per time range on right. 07/28/23 0600 - 07/28/23 1031 Calculated Blood Loss (mL) Hospital Encounter 295 Total 295 cc Clinical Course: Nata Penaloza is a 22 year old year old female who presented to [facility] with Estimated Date of Delivery: 08/06/23 at 38w4d for IOL for gHTN. Her course was complicated by gestational hypertension. The patient was GBS negative. Labor Course: At the time of presentation the patient was found to be 2cm dilated, 50% effaced, and at -3 station. She was started on cytotec and a cervical ripening balloon for induction. Amniotomy was performed for clear fluid. She then received an epidural for maternal analgesia and progressed to complete cervical dilation with the vertex at +2 station. She then began to push. As the vertex was , the patient was prepped and draped in a normal sterile fashion in the dorsal lithotomy position. The vertex delivered over an intact perineum from the occiput anterior position which restituted to the maternal right. After delivery of the head, the anterior and posterior shoulders were then delivered without difficulty followed by the remainder of the infant's body. The was crying spontaneously. Delayed cord clamping was performed until the cord stopped pulsing. The cord was then doubly clamped and cut and the was passed above for skin to skin. The placenta delivered spontaneously. pitocin was then started. Vaginal exploration revealed a first degree right labial laceration and a first degree midline laceration that were repaired in the usual fashion with 3-0 Vicryl Rapide. Cervical exploration revealed no lacerations. Excellent hemostasis was noted. The patient tolerated the procedure well without complications. All needle, sponge and instrument counts were correct x2. A digital "sweep" of the vaginal canal was performed by An Azevedo MD and it was ascertained that no instruments or other foreign bodies are retained within the cavity. Sponge, lap, and needle counts were correct times two. Mother and baby are stable and bonding and skin to skin. Baby is in mother's arms. Expected post-delivery care and anticipated transfer reviewed. Plan of care discussed with: Provider, RN, Patient. Patient discussed with Dr Juarez and Dr Fuchs. SIGNATURE: An Azevedo MD PATIENT NAME: Nata Penaloza DATE: July 28, 2023 TIME: 10:31 AM Normal [facility] CBC W Auto Differential pane l (Bld)on 07-27-2023 Basophils (Bld) [#/Vol] 0.03 10*3/uL Normal <0.11 [facility] Comment on above: Order Comment: Speci men Type: BLOOD SPECIMEN Ordering Facility: [facility] Address: [address] [place] [address] Performed By: #### 5 7021-8 #### [facility] CLIA [id number] 1 [place] [address] [place] Basophils/100 WBC (Bld) 0.3 % Normal [facility] Comment on above: Order Comment: Speci men Type: BLOOD SPECIMEN Ordering Facility: [facility] Address: [address] [place] [address] Performed By: #### 5 7021-8 #### [facility] CLIA [id number] [address] Differential cell count method Nom (Bld) Auto Normal [facility] Comment on above: Order Comment: Speci men Type: BLOOD SPECIMEN Ordering Facility: [facility] Address: [address] [place] [address] Performed By: #### 5 7021-8 #### [facility] CLIA [id number] [address] Eosinophils (Bld) [#/Vol] 0.03 10*3/uL Normal <0.46 [facility] Comment on above: Order Comment: Speci men Type: BLOOD SPECIMEN Ordering Facility: [facility] Address: [address] [place] [address] Performed By: #### 5 7021-8 #### [facility] CLIA [id number] [address] Eosinophils/100 WBC (Bld) 0.3 % Normal [facility] Comment on above: Order Comment: Speci men Type: BLOOD SPECIMEN Ordering Facility: [facility] Address: [address] [place] [address] Performed By: #### 5 7021-8 #### [facility] CLIA [id number] [address] Erythrocyte distribution width (RBC) [Ratio] 11.9 % Normal 11.5-15.0 [facility] Comment on above: Order Comment: Speci men Type: BLOOD SPECIMEN Ordering Facility: [facility] Address: [address] [place] [address] Performed By: #### 5 7021-8 #### [facility] CLIA [id number] [address] Hematocrit (Bld) [Volume fraction] 39.6 % Normal 36.0-46.0 [facility] Comment on above: Order Comment: Speci men Type: BLOOD SPECIMEN Ordering Facility: [facility] Address: [address] [place] [address] Performed By: #### 5 7021-8 #### [facility] CLIA [id number] [address] [place] Hemoglobin (Bld) [Mass/Vol] 13.8 g/dL Normal 11.5-15.5 [facility] Comment on above: Order Comment: Speci men Type: BLOOD SPECIMEN Ordering Facility: [facility] Address: [address] [place] [address] Performed By: #### 5 7021-8 #### [facility] CLIA [id number] [address] [place] Immature granulocytes (Bld) [#/Vol] 0.03 10*3/uL Normal <0.10 [facility] Comment on above: Order Comment: Speci men Type: BLOOD SPECIMEN Ordering Facility: [facility] Address: [address] [place] [address] Performed By: #### 5 7021-8 #### [facility] CLIA [id number] [address] [place] Immature granulocytes/100 WBC (Bld) 0.3 % Normal [facility] Comment on above: Order Comment: Speci men Type: BLOOD SPECIMEN Ordering Facility: [facility] Address: [address] [place] [address] Performed By: #### 5 7021-8 #### [facility] CLIA [id number] 1 [place] [address] [place] Lymphocytes (Bld) [#/Vol] 1.58 10*3/uL Normal 1.00-4.00 [facility] Comment on above: Order Comment: Speci men Type: BLOOD SPECIMEN Ordering Facility: [facility] Address: [address] [place] [address] Performed By: #### 5 7021-8 #### [facility] CLIA [id number] [address] Lymphocytes/100 WBC (Bld) 16.7 % Normal [facility] Comment on above: Order Comment: Speci men Type: BLOOD SPECIMEN Ordering Facility: [facility] Address: [address] [place] [address] Performed By: #### 5 7021-8 #### [facility] CLIA [id number] [address] MCH (RBC) [Entitic mass] 29.9 pg Normal 26.0-34.0 [facility] Comment on above: Order Comment: Speci men Type: BLOOD SPECIMEN Ordering Facility: [facility] Address: [address] [place] [address] Performed By: #### 5 7021-8 #### [facility] CLIA [id number] [address] MCHC (RBC) [Mass/Vol] 34.8 g/dL Normal 30.5-36.0 [facility] Comment on above: Order Comment: Speci men Type: BLOOD SPECIMEN Ordering Facility: [facility] Address: [address] [place] [address] Performed By: #### 5 7021-8 #### [facility] CLIA [id number] [address] MCV (RBC) [Entitic vol] 85.9 fL Normal 80.0-100.0 [facility] Comment on above: Order Comment: Speci men Type: BLOOD SPECIMEN Ordering Facility: [facility] Address: [address] [place] [address] Performed By: #### 5 7021-8 #### [facility] CLIA [id number] [address] Monocytes (Bld) [#/Vol] 0.69 10*3/uL Normal <0.87 [facility] Comment on above: Order Comment: Speci men Type: BLOOD SPECIMEN Ordering Facility: [facility] Address: [address] [place] [address] Performed By: #### 5 7021-8 #### [facility] CLIA [id number] [address] [place] Monocytes/100 WBC (Bld) 7.3 % Normal [facility] Comment on above: Order Comment: Speci men Type: BLOOD SPECIMEN Ordering Facility: [facility] Address: [address] [place] [address] Performed By: #### 5 7021-8 #### [facility] CLIA [id number] 1 [place] [address] [place] Neutrophils (Bld) [#/Vol] 7.08 10*3/uL Normal 1.45-7.50 [facility] Comment on above: Order Comment: Speci men Type: BLOOD SPECIMEN Ordering Facility: [facility] Address: [address] [place] [address] Performed By: #### 5 7021-8 #### [facility] CLIA [id number] [address] [place] Neutrophils/100 WBC (Bld) 75.1 % Normal [facility] Comment on above: Order Comment: Speci men Type: BLOOD SPECIMEN Ordering Facility: [facility] Address: [address] [place] [address] Performed By: #### 5 7021-8 #### [facility] CLIA [id number] [address] [place] Nucleated RBC (Bld) [#/Vol] 10*3/uL Normal <0.01 [facility] Comment on above: Order Comment: Speci men Type: BLOOD SPECIMEN Ordering Facility: [facility] Address: [address] [place] [address] Performed By: #### 5 7021-8 #### [facility] CLIA [id number] [address] [place] Nucleated RBC/100 WBC (Bld) [Ratio] 0.0 /100 WBC Normal [facility] Comment on above: Order Comment: Speci men Type: BLOOD SPECIMEN Ordering Facility: [facility] Address: [address] [place] [address] Performed By: #### 5 7021-8 #### [facility] CLIA [id number] [address] STATES [facility] Platelet mean volume (Bld) [Entitic vol] 12.3 fL Normal 9.0-12.7 [facility] Comment on above: Order Comment: Speci men Type: BLOOD SPECIMEN Ordering Facility: [facility] Address: [address] [place] [address] Performed By: #### 5 7021-8 #### [facility] CLIA [id number] [address] [place] Platelets (Bld) [#/Vol] 215 10*3/uL Normal 150-400 [facility] Comment on above: Order Comment: Speci men Type: BLOOD SPECIMEN Ordering Facility: [facility] Address: [address] [place] [address] Performed By: #### 5 7021-8 #### [facility] CLIA [id number] [address] RBC (Bld) [#/Vol] 4.61 10*6/uL Normal 3.90-5.20 [facility] Comment on above: Order Comment: Speci men Type: BLOOD SPECIMEN Ordering Facility: [facility] Address: [address] [place] [address] Performed By: #### 5 7021-8 #### [facility] CLIA [id number] [address] WBC (Bld) [#/Vol] 9.44 10*3/uL Normal 3.70-11.00 [facility] Comment on above: Order Comment: Speci men Type: BLOOD SPECIMEN Ordering Facility: [facility] Address: [address] [place] [address] Performed By: #### 5 7021-8 #### [facility] CLIA [id number] [address] Comprehensive metabolic 2000 panelon 07-27-2023 Albumin [Mass/Vol] 3.7 g/dL Low 3.9-4.9 [facility] Comment on above: Order Comment: Speci men Type: BLOOD SPECIMENOrdering Facility: [facility] Address: [address] [place] [address] Performed By: #### 2 4323-8 ####[facility]ORY[facility]IA [id number] [place] [address] [place] ALP [Catalytic activity/Vol] 251 U/L High 34-123 [facility] Comment on above: Order Comment: Speci men Type: BLOOD SPECIMENOrdering Facility: [facility] Address: [address] [place] [address] Performed By: #### 2 4323-8 ####[facility]ORY[facility]IA [id number] [address] [place] ALT With P-5'-P [Catalytic activity/Vol] 16 U/L Normal 7-38 [facility] Comment on above: Order Comment: Speci men Type: BLOOD SPECIMENOrdering Facility: [facility] Address: [address] [place] [address] Performed By: #### 2 4323-8 ####[facility]ORYCLIA [id number] [place] [address] [place] Anion gap [Moles/Vol] 12 mmol/L Normal 9-18 [facility] Comment on above: Order Comment: Speci men Type: BLOOD SPECIMENOrdering Facility: [facility] Address: [address] [place] [address] Performed By: #### 2 4323-8 ####[facility]ATORYCLIA [id number] [address] [place] AST With P-5'-P [Catalytic activity/Vol] 21 U/L Normal 13-35 [facility] Comment on above: Order Comment: Speci men Type: BLOOD SPECIMENOrdering Facility: [facility] Address: [address] [place] [address] Performed By: #### 2 4323-8 ####[facility] [id number] [address] [place] Bilirubin [Mass/Vol] 0.2 mg/dL Normal 0.2-1.3 [facility] Comment on above: Order Comment: Speci men Type: BLOOD SPECIMENOrdering Facility: [facility] Address: [address] [place] [address] Performed By: #### 2 4323-8 ####[facility]ORYCLIA [id number] [place] [address] [place] Calcium [Mass/Vol] 9.1 mg/dL Normal 8.5-10.2 [facility] Comment on above: Order Comment: Speci men Type: BLOOD SPECIMENOrdering Facility: [facility] Address: [address] [place] [address] Performed By: #### 2 4323-8 ####[facility]ORYCLIA [id number] [place] [address] [place] Chloride [Moles/Vol] 104 mmol/L Normal 97-105 [facility] Comment on above: Order Comment: Speci men Type: BLOOD SPECIMENOrdering Facility: [facility] Address: [address] [place] [address] Performed By: #### 2 4323-8 ####[facility]ORYCLIA [id number] [place] [address] [place] CO2 [Moles/Vol] 21 mmol/L Low 22-30 [facility] Comment on above: Order Comment: Speci men Type: BLOOD SPECIMENOrdering Facility: [facility] Address: [address] [place] [address] Performed By: #### 2 4323-8 ####[facility] [id number] [place] [address] [place] Creatinine [Mass/Vol] 0.58 mg/dL Normal 0.58-0.96 [facility] Comment on above: Order Comment: Speci men Type: BLOOD SPECIMENOrdering Facility: [facility] Address: [address] [place] [address] Performed By: #### 2 4323-8 ####[facility] [id number] [place] [address] [place] Creatinine and Glomerular filtration rate.predicted panel (S/P/Bld) 133 mL/min/1.73m??? Normal >=60 [facility] Comment on above: Order Comment: Wiley escobedo Type: BLOOD SPECIMENOrdering Facility: [facility] Address: [address] [place] [address] Result Comment: Isela mated Glomerular Filtration Rate (eGFR) is calculated using the 2020 CKD-EPI creatinine equation. This equation utilizes serum creatinine, sex, and age as parameters. The creatinine assay has traceable calibration to isotope dilution-mass spectrometry. Refer to KDIGO guidelines for clinical interpretation. In patients with unstable renal function, e.g. those with acute kidney injury, the eGFR may not accurately reflect actual GFR. Performed By: #### 2 4323-8 ####[facility] [id number] [place] [address] [place] Glucose [Mass/Vol] 88 mg/dL Normal 74-99 [facility] Comment on above: Order Comment: Wiley escobedo Type: BLOOD SPECIMENOrdering Facility: [facility] Address: [address] [place] [address] Result Comment: The [place] [employer] (ADA) provides guidance for cutoff values for fasting glucose and random glucose. The ADA defines fasting as no caloric intake for at least 8 hours. Fasting plasma glucose results between 100 to 125 mg/dL indicate increased risk for diabetes (prediabetes). Fasting plasma glucose results greater than or equal to 126 mg/dL meet the criteria for diagnosis of diabetes. In the absence of unequivocal hyperglycemia, results should be confirmed by repeat testing. In a patient with classic symptoms of hyperglycemia or hyperglycemic crisis, random plasma glucose results greater than or equal to 200 mg/dL meet the criteria for diagnosis of diabetes. Reference: Standards of Medical Care in Diabetes 2016, [place] [employer]. Diabetes Care. 2016.39(Suppl 1). Performed By: #### 2 4323-8 ####[facility]ORYCLIA [id number] [place] [id number] [place] Potassium [Moles/Vol] 3.8 mmol/L Normal 3.7-5.1 [facility] Comment on above: Order Comment: Wiley escobedo Type: BLOOD SPECIMENOrdering Facility: [facility] Address: [address] [place] [address] Performed By: #### 2 4323-8 ####[facility]ATORYCLIA [id number] [place] [id number] [facility] Protein [Mass/Vol] 6.5 g/dL Normal 6.3-8.0 [facility] Comment on above: Order Comment: Speci men Type: BLOOD SPECIMENOrdering Facility: [facility] Address: [address] [place] [address] Performed By: #### 2 4323-8 ####[facility]ATORYCLIA [id number] [place] [id number] [place] [facility] Sodium [Moles/Vol] 137 mmol/L Normal 136-144 [facility] Comment on above: Order Comment: Speci men Type: BLOOD SPECIMENOrdering Facility: [facility] Address: [address] [place] [address] Performed By: #### 2 4323-8 ####[facility]ORYCLIA [id number] [address] STATES OF [facility] Urea nitrogen [Mass/Vol] 13 mg/dL Normal 7-21 [facility] Comment on above: Order Comment: Speci men Type: BLOOD SPECIMENOrdering Facility: [facility] Address: [address] [place] [address] Performed By: #### 2 4323-8 ####[facility]ATORYCLIA [id number] [address] [place] HISTORY PHYSICALon HISTORY PHYSICAL HNO ID: [id number] Author: Leelee Saini MD Service: Obstetrics Author Type: Resident Type: HANDP Filed: 07/27/2023 6:12 PM Note Text: Attestation signed by Yodit Fuchs MD at 07/28/2023 3:52 PM Attending Note I personally saw and examined the patient. I reviewed the resident's note. I agree with the resident's assessment and plan unless otherwise noted. Signature: Yodit Fuchs MD Date: 07/28/2023 Time: 3:52 PM OBSTETRICS HISTORY AND PHYSICAL SERVICE DATE: July 27, 2023 SERVICE TIME: 6:09 PM Subjective Patient's stated reason for arrival: to be induced HISTORY OF THE PRESENT ILLNESS: The patient is a 22 year old female, , who is at 38w4d with an EVAN of 08/06/2023, by Last Menstrual Period dating method. Patient is here for induction for gestational hypertension. She denies headache, vision change, chest pain, shortness of breath or RUQ pain. This is otherwise uncomplicated. Good movement. Denies vaginal bleeding. Denies contractions. Denies leaking of fluid. Patient denies history of HSV or MRSA. Denies any alcohol, tobacco, or recreational drug use in this . POST DELIVERY CONTRACEPTION: Discussed post-delivery contraception options. Patient will discuss at 6wk pp visit. HISTORY REVIEW PAST MEDICAL HISTORY Diagnosis Date Hypertension No pertinent past medical history UTI (urinary tract infection) PAST SURGICAL HISTORY Procedure Laterality Date EXTENSIVE JAW SURGERY ORTHOPEDICS SURGERY HX RECONSTRUCT CLEFT PALATE FAMILY HISTORY Problem Relation Age of Onset No Known Problems Mother No Known Problems Father No Known Problems Sister No Known Problems Brother No Known Problems Brother Social History Tobacco Use Smoking status: Never Passive exposure: Never Smokeless tobacco: Never Vaping Use Vaping Use: Never used Substance Use Topics Alcohol use: Not Currently Comment: social Drug use: Never Obstetric History T0 L0 SAB0 IAB0 Ectopic0 Multiple0 Live Births0 Name of Baby 1: Not recorded Date: Not recorded GA: Not recorded Delivery: Not recorded Apgar1: Not recorded Apgar5: Not recorded Living: Not recorded Active Non-Hospital Problems Diagnosis Date Noted Gestational hypertension 07/26/2023 Overview Note: - Diagnosed by mild range bps > 4 hours apart - No medications - CBC, CMP, UPC without evidence of hypertensive disease 07/26 38 weeks gestation of 07/26/2023 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 ALLERGIES No Known Allergies Prior to Admission Medications Prescriptions Last Dose Informant Patient Reported? Taking? Vitamin w/ Iron ( VITAMIN PLUS LOW IRON) 27 mg iron- 1 mg 07/26/2023 at 2200 No Yes Sig: Take 1 tablet by mouth once daily. calcium carbonate (TUMS) 500 mg chew 07/26/2023 at 2200 No Yes Sig: Take 1 AND 1/2 tablets by mouth three times daily. calcium carbonate-vitamin D3 1,000 mg-20 mcg (800 unit) tab Unknown No No Sig: Take 1 tablet by mouth once daily. famotidine (PEPCID) 20 mg tablet Unknown No No Sig: Take 1 tablet by mouth once daily. ferrous sulfate 325 mg (65 mg iron) tablet Unknown No No Sig: Take 1 tablet by mouth daily at bedtime. omega-3 DHA-EPA (FISH OIL) 1,200 (144-216) mg capsule Unknown No No Sig: Take 1 capsule by mouth daily with breakfast. Facility-Administered Medications: None REVIEW OF SYSTEMS: The remainder of the review of systems is negative. Objective LAST VITALS: Pulse BP Resp O2 Sat Temp Pain 85 141/87 18 36.8 ?C (98.2 ?F) 0 HT/WT/BMI: Height Weight BMI 162.6 cm (5' 4") 73.9 kg (163 lb) 27.98 PHYSICAL EXAM: General: WD, WN HEENT: sclera white, pupils equal Lungs: normal respiratory effort Heart: Appears well perfused Abdomen: soft, nontender, gravid Uterus: soft, NT Extremities: no edema CERVICAL EXAM: Dilation: 2 (07/27/238 : Leelee Saini MD) cm Station: -3 (07/27/231807 : Leelee aSini MD) Effacement: 50 (07/27/231807 : Leelee Saini MD) % Position: Cephalic Pelvimetry: Pelvimetry clinically assessed as adequate MONITORING/ASSESSMENT: Baseline: 135 Variability: Moderate (6-25 bpm) Accelerations: Present Decelerations: None Contractions: Irregular Frequency: Irregular NST Interpretation: Category I EFW: AND lbs based on lizbeth's ULTRASOUND: US findings: Head position: cephalic, (more content not included)... Normal [facility] TYPE + SCREEN PRENATALon ABO B Normal [facility] Comment on above: Order Comment: Speci men Type: BLOOD SPECIMENOrdering Facility: [facility] Address: [address] [place] [address] Performed By: #### T SPN ####[facility]ANKCLIA [id number] [address] HISTORICAL AB SCR STATUS Negative [facility] Comment on above: Order Comment: Speci men Type: BLOOD SPECIMENOrdering Facility: [facility] Address: [address] [place] [address] Performed By: #### T SPN ####[facility] BANKCLIA [id number] [address] Rh Nom (Bld) Positive [facility] Comment on above: Order Comment: Speci men Type: BLOOD SPECIMENOrdering Facility: [facility] Address: [address] [place] [address] Performed By: #### T SPN ####[facility] BANKCLIA [id number] [address] TYPE AND SCREEN EXPIRATION 07/30/2023 23:59 Normal [facility] Comment on above: Order Comment: Speci men Type: BLOOD SPECIMENOrdering Facility: [facility] Address: [address] [place] [address] Performed By: #### T SPN ####[facility]LO[facility] BANKCLIA [id number] [address] CBC panel Auto (Bld)on 07-26 Erythrocyte distribution width (RBC) [Ratio] 11.9 % Normal 11.5-15.0 [facility] Comment on above: Order Comment: Speci men Type: BLOOD SPECIMEN Ordering Facility: [facility] Address: [address] [place] [address] Performed By: #### 5 8410-2 #### [facility] CLIA [id number] [address] Hematocrit (Bld) [Volume fraction] 39.1 % Normal 36.0-46.0 [facility] Comment on above: Order Comment: Speci men Type: BLOOD SPECIMEN Ordering Facility: [facility] Address: [address] [place] [address] Performed By: #### 5 8410-2 #### [facility] CLIA [id number] [address] Hemoglobin (Bld) [Mass/Vol] 13.8 g/dL Normal 11.5-15.5 [facility] Comment on above: Order Comment: Speci men Type: BLOOD SPECIMEN Ordering Facility: [facility] Address: [address] [place] [address] Performed By: #### 5 8410-2 #### [facility] CLIA [id number] [address] MCH (RBC) [Entitic mass] 30.3 pg Normal 26.0-34.0 [facility] Comment on above: Order Comment: Speci men Type: BLOOD SPECIMEN Ordering Facility: [facility] Address: [address] [place] [address] Performed By: #### 5 8410-2 #### [facility] CLIA [id number] [address] MCHC (RBC) [Mass/Vol] 35.3 g/dL Normal 30.5-36.0 [facility] Comment on above: Order Comment: Speci men Type: BLOOD SPECIMEN Ordering Facility: [facility] Address: [address] [place] [address] Performed By: #### 5 8410-2 #### [facility] CLIA [id number] [address] MCV (RBC) [Entitic vol] 85.7 fL Normal 80.0-100.0 [facility] Comment on above: Order Comment: Speci men Type: BLOOD SPECIMEN Ordering Facility: [facility] Address: [address] [place] [address] Performed By: #### 5 8410-2 #### [facility] CLIA [id number] [address] Nucleated RBC (Bld) [#/Vol] 10*3/uL Normal <0.01 [facility] Comment on above: Order Comment: Speci men Type: BLOOD SPECIMEN Ordering Facility: [facility] Address: [address] [place] [address] Performed By: #### 5 8410-2 #### [facility] CLIA [id number] [address] [place] Platelet mean volume (Bld) [Entitic vol] 12.3 fL Normal 9.0-12.7 [facility] Comment on above: Order Comment: Speci men Type: BLOOD SPECIMEN Ordering Facility: [facility] Address: [address] [place] [address] Performed By: #### 5 8410-2 #### [facility] CLIA [id number] [address] [place] Platelets (Bld) [#/Vol] 211 10*3/uL Normal 150-400 [facility] Comment on above: Order Comment: Speci men Type: BLOOD SPECIMEN Ordering Facility: [facility] Address: [address] [place] [address] Performed By: #### 5 8410-2 #### [facility] CLIA [id number] [address] [place] RBC (Bld) [#/Vol] 4.56 10*6/uL Normal 3.90-5.20 [facility] Comment on above: Order Comment: Speci men Type: BLOOD SPECIMEN Ordering Facility: [facility] Address: [address] [place] [address] Performed By: #### 5 8410-2 #### [facility] CLIA [id number] [address] OF [facility] WBC (Bld) [#/Vol] 11.02 10*3/uL High 3.70-11.00 [facility] Comment on above: Order Comment: Speci men Type: BLOOD SPECIMEN Ordering Facility: [facility] Address: [address] [place] [address] Performed By: #### 5 8410-2 #### [facility] CLIA [id number] [address] OF [facility] Comprehensive metabolic 2000 panelon 07-26-2023 Albumin [Mass/Vol] 3.7 g/dL Low 3.9-4.9 [facility] Comment on above: Order Comment: Speci men Type: BLOOD SPECIMEN Ordering Facility: [facility] Address: [address] [place] [address] Performed By: #### 2 4323-8 #### [facility] CLIA [id number] [address] ALP [Catalytic activity/Vol] 247 U/L High 34-123 [facility] Comment on above: Order Comment: Speci men Type: BLOOD SPECIMEN Ordering Facility: [facility] Address: [address] [place] [address] Performed By: #### 2 4323-8 #### [facility] CLIA [id number] [address] OF [facility] ALT With P-5'-P [Catalytic activity/Vol] 15 U/L Normal 7-38 [facility] Comment on above: Order Comment: Speci men Type: BLOOD SPECIMEN Ordering Facility: [facility] Address: [address] [place] [address] Performed By: #### 2 4323-8 #### [facility] CLIA [id number] [address] [place] Anion gap [Moles/Vol] 14 mmol/L Normal 9-18 [facility] Comment on above: Order Comment: Speci men Type: BLOOD SPECIMEN Ordering Facility: [facility] Address: [address] [place] [address] Performed By: #### 2 4323-8 #### [facility] CLIA [id number] [address] [place] AST With P-5'-P [Catalytic activity/Vol] 19 U/L Normal 13-35 [facility] Comment on above: Order Comment: Speci men Type: BLOOD SPECIMEN Ordering Facility: [facility] Address: [address] [place] [address] Performed By: #### 2 4323-8 #### [facility] CLIA [id number] [address] [place] [address] [place] Bilirubin [Mass/Vol] 0.2 mg/dL Normal 0.2-1.3 [facility] Comment on above: Order Comment: Speci men Type: BLOOD SPECIMEN Ordering Facility: [facility] Address: [address] [place] [address] Performed By: #### 2 4323-8 #### [facility] CLIA [id number] [address] [place] Calcium [Mass/Vol] 9.0 mg/dL Normal 8.5-10.2 [facility] Comment on above: Order Comment: Speci men Type: BLOOD SPECIMEN Ordering Facility: [facility] Address: [address] [place] [address] Performed By: #### 2 4323-8 #### [facility] CLIA [id number] [address] [place] Chloride [Moles/Vol] 101 mmol/L Normal 97-105 [facility] Comment on above: Order Comment: Speci men Type: BLOOD SPECIMEN Ordering Facility: [facility] Address: [address] [place] [address] Performed By: #### 2 4323-8 #### [facility] CLIA [id number] [address] [place] CO2 [Moles/Vol] 20 mmol/L Low 22-30 [facility] Comment on above: Order Comment: Speci men Type: BLOOD SPECIMEN Ordering Facility: [facility] Address: [address] [place] [address] Performed By: #### 2 4323-8 #### [facility] CLIA [id number] [address] STATES OF [facility] Creatinine [Mass/Vol] 0.54 mg/dL Low 0.58-0.96 [facility] Comment on above: Order Comment: Speci men Type: BLOOD SPECIMEN Ordering Facility: [facility] Address: [address] [place] [address] Performed By: #### 2 4323-8 #### [facility] CLIA [id number] [address] Creatinine and Glomerular filtration rate.predicted panel (S/P/Bld) 135 mL/min/1.73m??? Normal >=60 [facility] Comment on above: Order Comment: Speci men Type: BLOOD SPECIMEN Ordering Facility: [facility] Address: [address] [place] [address] Result Comment: Isela mated Glomerular Filtration Rate (eGFR) is calculated using the 2020 CKD-EPI creatinine equation. This equation utilizes serum creatinine, sex, and age as parameters. The creatinine assay has traceable calibration to isotope dilution-mass spectrometry. Refer to KDIGO guidelines for clinical interpretation. In patients with unstable renal function, e.g. those with acute kidney injury, the eGFR may not accurately reflect actual GFR. Performed By: #### 2 4323-8 #### [facility] CLIA [id number] [address] [place] Glucose [Mass/Vol] 71 mg/dL Low 74-99 [facility] Comment on above: Order Comment: Speci men Type: BLOOD SPECIMEN Ordering Facility: [facility] Address: [address] [place] [address] Result Comment: The [place] [employer] (ADA) provides guidance for cutoff values for fasting glucose and random glucose. The ADA defines fasting as no caloric intake for at least 8 hours. Fasting plasma glucose results between 100 to 125 mg/dL indicate increased risk for diabetes (prediabetes). Fasting plasma glucose results greater than or equal to 126 mg/dL meet the criteria for diagnosis of diabetes. In the absence of unequivocal hyperglycemia, results should be confirmed by repeat testing. In a patient with classic symptoms of hyperglycemia or hyperglycemic crisis, random plasma glucose results greater than or equal to 200 mg/dL meet the criteria for diagnosis of diabetes. Reference: Standards of Medical Care in Diabetes 2016, [place] [employer]. Diabetes Care. 2016.39(Suppl 1). Performed By: #### 2 4323-8 #### [facility] CLIA [id number] [address] [place] [address] [place] Potassium [Moles/Vol] 3.7 mmol/L Normal 3.7-5.1 [facility] Comment on above: Order Comment: Wiley escobedo Type: BLOOD SPECIMEN Ordering Facility: [facility] Address: [address] [place] [address] Performed By: #### 2 4323-8 #### [facility] CLIA [id number] 1 [place] [address] [place] Protein [Mass/Vol] 6.8 g/dL Normal 6.3-8.0 [facility] Comment on above: Order Comment: Wiley escobedo Type: BLOOD SPECIMEN Ordering Facility: [facility] Address: [address] [place] [address] Performed By: #### 2 4323-8 #### [facility] CLIA [id number] 1 [place] [address] [place] Sodium [Moles/Vol] 135 mmol/L Low 136-144 [facility] Comment on above: Order Comment: Ousmanei men Type: BLOOD SPECIMEN Ordering Facility: [facility] Address: [address] [place] [address] Performed By: #### 2 4323-8 #### [facility] CLIA [id number] 1 [place] [address] [place] Urea nitrogen [Mass/Vol] 13 mg/dL Normal 7-21 [facility] Comment on above: Order Comment: Speci men Type: BLOOD SPECIMEN Ordering Facility: [facility] Address: [address] [place] [address] Performed By: #### 2 4323-8 #### [facility] CLIA [id number] [address] [place] Prot/Creat Uron 07-26-2023 Protein/Creatinine (U) [Mass ratio] 0.11 mg/mg Normal <0.15 [facility] Comment on above: Order Comment: Speci men Type: URINE SPECIMEN Ordering Facility: [facility] Address: [address] [place] [address] Result Comment: Adul t Proteinuria Categories: <0.15 mg/mg is considered normal to mildly increased 0.15 - 0.50 mg/mg is considered moderately increased >0.50 mg/mg is considered severely increased KDIGO. (2013). KDIGO 2012 Clinical Practice Guideline for the Evaluation and Management of Chronic Kidney Disease. Official Journal of the International Society of Nephrology, 3(1), 1-150. Performed By: #### 2 890-2 #### [facility] CLIA [id number] [address] [place] Protein/Creatinine (U) [Mass ratio]on 07-26-2023 Creatinine (U) [Mass/Vol] 56.9 mg/dL Normal 42.2-237.9 [facility] Comment on above: Order Comment: Speci men Type: URINE SPECIMEN Ordering Facility: [facility] Address: [address] [place] [address] Performed By: #### 2 890-2 #### [facility] CLIA [id number] [address] [place] Protein (U) [Mass/Vol] 6 mg/dL Normal 0-20 [facility] Comment on above: Order Comment: Speci men Type: URINE SPECIMEN Ordering Facility: [facility] Address: [address] [place] [address] Performed By: #### 2 890-2 #### [facility] CLIA [id number] 1 [place] [address] [place] Prot/Creat Uron 07-23-2023 Protein/Creatinine (U) [Mass ratio] 0.10 mg/mg Normal <0.15 [facility] Comment on above: Order Comment: Speci men Type: URINE SPECIMEN Ordering Facility: [facility] Address: [address] [place] [address] Result Comment: Adul t Proteinuria Categories: <0.15 mg/mg is considered normal to mildly increased 0.15 - 0.50 mg/mg is considered moderately increased >0.50 mg/mg is considered severely increased KDIGO. (2013). KDIGO 2012 Clinical Practice Guideline for the Evaluation and Management of Chronic Kidney Disease. Official Journal of the International Society of Nephrology, 3(1), 1-150. Performed By: #### 2 890-2 #### [facility] CLIA [id number] [address] [place] [address] [place] Protein/Creatinine (U) [Mass ratio]on 07-23-2023 Creatinine (U) [Mass/Vol] 420.4 mg/dL High 20.0-300.0 [facility] Comment on above: Order Comment: Speci men Type: URINE SPECIMEN Ordering Facility: [facility] Address: [address] [place] [address] Performed By: #### 2 890-2 #### [facility] CLIA [id number] [address] [place] [address] [place] Protein (U) [Mass/Vol] 41 mg/dL High 0-20 [facility] Comment on above: Order Comment: Speci men Type: URINE SPECIMEN Ordering Facility: [facility] Address: [address] [place] [address] Performed By: #### 2 890-2 #### [facility] CLIA [id number] [address] [place] [address] [place] URINE OB DIP B/Oon 3 Glucose Ql (U) Negative Neg mg/dL [place] Protein.monoclonal (U) [Mass/Vol] 30 mg/dL Abnormal Neg mg/dL [place] URINE OB DIP B/Oon 3 Glucose Ql (U) Negative Neg mg/dL [place] Protein.monoclonal (U) [Mass/Vol] Trace Neg mg/dL [place] URINE OB DIP B/Oon 3 Glucose Ql (U) Negative Neg mg/dL [place] Protein.monoclonal (U) [Mass/Vol] Negative Neg mg/dL [place] Reagin and Treponema pallidu m IgG and IgM [Interp]on 06-26-2023 T. pallidum IgG+IgM IA Ql (S) Non-Reactive Nonreactive [place] SYPHILIS TOTAL W/REFLEXon Reagin and Treponema pallidum IgG and IgM [Interp] Cannot exclude recent Treponemal infection if specimen collected within 7-10 days after appearance of suspect lesions or 2-3 weeks after an exposure. Clinical correlation is required. [place] CBC panel Auto (Bld)on 06-25 Erythrocyte distribution width (RBC) [Ratio] 12.2 % 11.5 - 15.0 % [place] Hematocrit (Bld) [Volume fraction] 36.0 % 36.0 - 46.0 % [place] Hemoglobin (Bld) [Mass/Vol] 13.1 g/dL 11.5 - 15.5 g/dL [place] MCH (RBC) [Entitic mass] 31.3 pg 26.0 - 34.0 pg [place] MCHC (RBC) [Mass/Vol] 36.4 g/dL High 30.5 - 36.0 g/dL [place] MCV (RBC) [Entitic vol] 85.9 fL 80.0 - 100.0 fL [place] Nucleated RBC (Bld) [#/Vol] <0.01 k/uL [place] Platelet mean volume (Bld) [Entitic vol] 11.7 fL 9.0 - 12.7 fL [place] Platelets (Bld) [#/Vol] 208 10*3/uL 150 - 400 k/uL [place] RBC (Bld) [#/Vol] 4.19 10*6/uL 3.90 - 5.20 m/uL [place] WBC (Bld) [#/Vol] 9.19 10*3/uL 3.70 - 11.00 k/u L [place] Comprehensive metabolic 2000 panelon 06-25-2023 Albumin [Mass/Vol] 3.5 g/dL Low 3.9 - 4.9 g/dL [facility] ALP [Catalytic activity/Vol] 160 U/L High 34 - 123 U/L [place] ALT [Catalytic activity/Vol] 22 U/L 7 - 38 U/L [place] Anion gap [Moles/Vol] 14 mmol/L 9 - 18 mmol/L [place] AST [Catalytic activity/Vol] 18 U/L 13 - 35 U/L [place] Bilirubin [Mass/Vol] 0.2 mg/dL 0.2 - 1.3 mg/dL [place] Calcium [Mass/Vol] 8.7 mg/dL 8.5 - 10.2 mg/dL [place] Chloride [Moles/Vol] 103 mmol/L 97 - 105 mmol/L [place] CO2 [Moles/Vol] 21 mmol/L Low 22 - 30 mmol/L [facility] Creatinine [Mass/Vol] 0.53 mg/dL Low 0.58 - 0.96 mg/dL [place] Estimated Glomerular Filtration Rate 136 mL/min/1.73m >=60 mL/min/1.73m [place] Glucose [Mass/Vol] 124 mg/dL High 74 - 99 mg/dL [facility] Potassium [Moles/Vol] 3.5 mmol/L Low 3.7 - 5.1 mmol/L [place] Protein [Mass/Vol] 6.2 g/dL Low 6.3 - 8.0 g/dL [facility] Sodium [Moles/Vol] 138 mmol/L 136 - 144 mmol/L [place] Urea nitrogen [Mass/Vol] 9 mg/dL 7 - 21 mg/dL [place] URINE OB DIP B/Oon 3 Glucose Ql (U) Negative Neg mg/dL [place] Protein.monoclonal (U) [Mass/Vol] TRACE Abnormal Neg mg/dL [place] STREP A MOLECULAR (POC)on Procedural Control Valid [facility] Strep A (POCT) Negative Negative [place] URINE OB DIP B/Oon 3 Glucose Ql (U) Negative Neg mg/dL [place] Protein.monoclonal (U) [Mass/Vol] Negative Neg mg/dL [place] COVID NAAT, ROUTINEon 2022 SARS-CoV-2 (COVID-19) RNA TESS+probe Ql (Resp) Not detected See comment [place] ROUTINE FLU A/B + RSVon 05-04 FLUAV RNA TESS+probe Ql (Unsp spec) Not detected Not Detected [place] FLUBV RNA TESS+probe Ql (Unsp spec) Not detected Not Detected [place] RSV A RNA TESS+probe Ql (Unsp spec) Not detected Not Detected [place] STREP A MOLECULAR (POC)on Procedural Control Valid [facility] Strep A (POCT) Negative Negative [place] URINE OB DIP B/Oon 3 Glucose Ql (U) Negative Neg mg/dL [place] Protein.monoclonal (U) [Mass/Vol] Negative Neg mg/dL [place] OBSTETRIC ULTRASOUND WHIon 0 03-19-2023 [place] URINE OB DIP B/Oon 3 Glucose Ql (U) Negative Neg mg/dL [place] Protein.monoclonal (U) [Mass/Vol] Negative Neg mg/dL [place] [id number] PLUSon 01-25-2023 Cell-free DNA./Cell-free DNA.total Dosage of chromosome-specific cfDNA (cfDNA) [Molar fraction] 6% Normal [facility] Comment on above: Order Comment: Speci men Type: BLOOD SPECIMEN Ordering Facility: [facility] Address: [address] [place] [address] Performed By: #### M AT21 #### [facility] CLIA [id number] [address] [place] [address] Chr 13+18+21+X+Y aneuploidy Dosage of chromosome-specific cfDNA Ql (cfDNA) Negative Normal [facility] Comment on above: Order Comment: Speci men Type: BLOOD SPECIMEN Ordering Facility: [facility] Address: [address] [place] [address] Performed By: #### M AT21 #### [email or web address] CLIA [id number] [address] [place] [address] Chr 21 trisomy Dosage of chromosome-specific cfDNA Ql (cfDNA) Negative Normal [facility] Comment on above: Order Comment: Speci men Type: BLOOD SPECIMEN Ordering Facility: [facility] Address: [address] [place] [address] Performed By: #### M AT21 #### [facility] CLIA [id number] [address] [place] [address] Chr X and Y aneuploidy risk Sequencing Ql (cfDNA) [Interp] Not detected Normal [facility] Comment on above: Order Comment: Speci men Type: BLOOD SPECIMEN Ordering Facility: [facility] Address: [address] [place] [address] Result Comment: Not Detected Not Detected Performed By: #### M AT21 #### [facility] CLIA [id number] [address] [place] [place] [id number] Citation Andrew (Reference lab test) Comment Normal [facility] Comment on above: Order Comment: Speci men Type: BLOOD SPECIMEN Ordering Facility: [facility] Address: [address] [place] [address] Result Comment: 1. P lazaro KELLER, et al. Ana Med. 2012;14(3):296-305. 2. Cherelle MAGANA, et al. Prenat Diag. 2013;33(6):591-597. 3. Mohit C, et al. Clin Chem. 2015 Apr;61(4):608-616. 4. Jax KELLER, et al. Ana Med. 2011;13(11):913-920. 5. ACOG/SMFM Practice Bulletin No. 226, Jul 2020. Performed By: #### M AT21 #### [facility] CLIA [id number] [address] [place] [address] Gestational age Estimated from conception date Senior [facility] Comment on above: Order Comment: Speci men Type: BLOOD SPECIMEN Ordering Facility: [facility] Address: [address] [place] [address] Performed By: #### M AT21 #### [facility] CLIA [id number] [address] [place] [address] GESTATIONALAGE AGE > OR = 9W Yes Normal [facility] Comment on above: Order Comment: Speci men Type: BLOOD SPECIMEN Ordering Facility: [facility] Address: [address] [place] [address] Performed By: #### M AT21 #### [email or web address] CLIA [id number] [address] [place] [place] [id number] Laboratory comment Andrew (Report) Comment [facility] Comment on above: Order Comment: Wiley escobedo Type: BLOOD SPECIMEN Ordering Facility: [facility] Address: [address] [place] [address] Result Comment: The MaterniT(R) 21 PLUS laboratory-developed test (LDT) analyzes circulating cell-free DNA from a maternal blood sample. This test is used for screening purposes and not diagnostic. Clinical correlation is recommended. Validation data on twin pregnancies is limited and the ability of this test to detect aneuploidy in higher multiple gestations has not yet been validated. Performed By: #### M AT21 #### [email or web address] CLIA [id number] [address] [place] [place] [id number] chief port director name Nom (Provider) Comment [facility] Comment on above: Order Comment: Wiley escobedo Type: BLOOD SPECIMEN Ordering Facility: [facility] Address: [address] [place] [address] Result Comment: This specimen showed an expected representation of chromosome 21, 18 and 13 material. Clinical correlation is suggested. Comment Jorge Bhatti MD, PhD, Director, [employer] Performed By: #### M AT21 #### [email or web address] CLIA [id number] [address] [place] [place] [id number] LIMITATIONS OF THE TEST Comment [facility] Comment on above: Order Comment: Wiley escobedo Type: BLOOD SPECIMEN Ordering Facility: [facility] Address: [address] [place] [address] Result Comment: Jeffry vanessa the results of these tests are highly reliable, discordant results, including inaccurate sex prediction, may occur due to placental, maternal, or mosaicism or neoplasm; vanishing twin; prior maternal organ transplant; or other causes. These tests are screening tests and not diagnostic; they do not replace the accuracy and precision of diagnosis with CVS or amniocentesis. A patient with a positive test result should be referred for genetic counseling and offered invasive diagnosis for confirmation of test results.[5] The results of this testing, including the benefits and limitations, should be discussed with a qualified healthcare provider. management decisions, including termination of the , should not be based on the results of these tests alone. The healthcare provider is responsible for the use of this information in the management of their patient. Sex chromosomal aneuploidies are not reportable for known multiple gestations. A negative result does not ensure an unaffected nor does it exclude the possibility of other chromosomal abnormalities or defects which are not a part of these tests. An uninformative result may be reported, the causes of which may include, but are not limited to, insufficient sequencing coverage, noise or artifacts in the region, amplification or sequencing bias, or insufficient fraction. These tests are not intended to identify pregnancies at risk for neural tube defects or ventral wall defects. Testing for whole chromosome abnormalities (including sex chromosomes) and for subchromosomal abnormalities could lead to the potential discovery of both and maternal genomic abnormalities that could have major, minor, or no, clinical significance. Evaluating the significance of a positive or a non-reportable result may involve both invasive testing and additional studies on the mother. Such investigations may lead to a diagnosis of maternal chromosomal or subchromosomal abnormalities, which on occasion may be associated with benign or malignant maternal neoplasms. These tests may not accurately identify triploidy, balanced rearrangements, or the precise location of subchromosomal duplications or deletions; these may be detected by diagnosis with CVS or amniocentesis. The ability to report results may be impacted by maternal BMI, maternal weight, maternal systemic lupus erythematosus (SLE) and/or by certain pharmaceutical agents such as low molecular weight heparin (for example: Lovenox(R), Xaparin(R), Clexane(R) and Fragmin(R)). Performed By: #### M AT21 #### [email or web address] CLIA [id number] [address] [place] [address] Monosomy X risk Dosage of chromosome-specific cfDNA Ql (Plasma cell-free+WBC DNA) [Interp] Not detected Normal [facility] Comment on above: Order Comment: Speci men Type: BLOOD SPECIMEN Ordering Facility: [facility] Address: [address] [place], [place] [address]LUIS [place], [place] [address] Performed By: #### M AT21 #### [facility] CLIA [id number] [address] [place] [address] NEGATIVE PREDICTIVE VALUE Note Normal [facility] Comment on above: Order Comment: [facility] Type: BLOOD SPECIMEN Ordering Facility: [facility] Address: [address] [place] [address] Result Comment: The Negative Predictive Value (NPV) for trisomy 21, 18, and 13 is greater than 99%. The NPV for SCA and ESS cannot be calculated as SCA and ESS are only reported when an abnormality is detected. Performed By: #### M AT21 #### [facility] CLIA [id number] [address] [place] [id number] NOTE Comment Normal [facility] Comment on above: [facility] Comment: [facility] Type: BLOOD SPECIMEN Ordering Facility: [facility] Address: [address] [place] [address] Result Comment: See Notes [employer] is a subsidiary of [employer], using the brand [employer]. This test was developed and its performance characteristics determined by [employer]. It has not been cleared or approved by the Food and Drug Administration. This laboratory is certified under the Clinical Laboratory Improvement Amendments (CLIA) as qualified to perform high complexity clinical laboratory testing and accredited by the [employer] [place] [employer] (CAP). If there is future clinical need for adding MaterniT GENOME testing, this specimen will be available until term. [facility] samples will not be retained beyond 60 days. [facility] patients will have to send a new sample for re-sequencing ([facility] Test Code: [id number]). Performed By: #### M AT21 #### [facility] CLIA [id number] [address] [place] [address] PERFORMANCE CHARACTERISTICS Note Normal [facility] Comment on above: Order Comment: [facility] Type: BLOOD SPECIMEN Ordering Facility: [facility] Address: [address] [place] [address] Result Comment: ! Sex ! Accuracy: 99.4% ! ! ! ! Region (associated syndrome) ! Est. Sens# ! Est. Spec ! ! ! ! Trisomy 21 (Down Syndrome) ! 99.1% ! 99.9% ! ! ! ! Trisomy 18 (Coleman Syndrome) ! >99.9% ! 99.6% ! ! ! ! Trisomy 13 (Patau Syndrome) ! 91.7% ! 99.7% ! ! ! ! Sex Chromosome Aneuploidies## ! 96.2% ! 99.7% ! ! ! * As reported in [facility] database nstd37 [https://www.ncbi.nlm.nih.gov/dbvar/studies/nstd37/ ] # Estimated Sensitivity. Sensitivity estimated across the observed size distribution of each syndrome [per [employer] database nstd37] and across the range of fractions observed in routine clinical NIPT. Actual sensitivity can also be influenced by other factors such as the size of the event, total sequence counts, amplification bias, or sequence bias. ## Senior gestation only. Performed By: #### M AT21 #### [facility] CLIA [id number] [address] [place] [address] POSITIVE PREDICTIVE VALUE N/A [facility] Comment on above: Order Comment: Speci men Type: BLOOD SPECIMEN Ordering Facility: [facility] Address: [address] [place] [address] Performed By: #### M AT21 #### [facility] CLIA [id number] [address] [place] [id number] Reference Lab Test Method Comment [facility] Comment on above: Order Comment: Speci men Type: BLOOD SPECIMEN Ordering Facility: [facility] Address: [address] [place] [address] Result Comment: See Notes Circulating cell-free DNA was purified from the plasma component of maternal blood. The extracted DNA was then converted into a genomic DNA library for aneuploidy analysis of chromosomes 21, 18, and 13 via next generation sequencing.[1] Optional findings based on the test order include sex chromosome aneuploidy (SCA)[2], and enhanced sequencing series (ESS)[3], which will only be reported on as an additional finding when an abnormality is detected. SCA testing includes information on X and Y representation, while ESS testing includes deletions in selected regions (22q, 15q, 11q, 8q, 5p, 4p, 1p) and trisomy of chromosomes 16 and 22. Performed By: #### M AT21 #### [facility] CLIA [id number] [address] [place] [address] Sex Dosage of chromosome-specific cfDNA Nom (cfDNA) Comment [facility] Comment on above: Order Comment: Speci men Type: BLOOD SPECIMEN Ordering Facility: [facility] Address: [address] [place] [address] Result Comment: Cons istent with Male Performed By: #### M AT21 #### [facility] CLIA [id number] [address] [place] [address] Test performance information Andrew (Unsp spec) Comment Normal [facility] Comment on above: Order Comment: Speci men Type: BLOOD SPECIMEN Ordering Facility: [facility] Address: [address] [place] [address] Result Comment: The performance characteristics of the MaterniT(R) 21 PLUS laboratory-developed test (LDT) have been determined in a clinical validation study with women at increased risk for chromosomal aneuploidy.[1-4] Performed By: #### M AT21 #### [facility] CLIA [id number] [address] [place] [address] Trisomy 13 risk Dosage of chromosome-specific cfDNA Ql (cfDNA) [Interp] Negative [facility] Comment on above: Order Comment: Speci men Type: BLOOD SPECIMEN Ordering Facility: [facility] Address: [address] [place] [address] Performed By: #### M AT21 #### [facility] CLIA [id number] [address] [place] [address] Trisomy 18 risk Dosage of chromosome-specific cfDNA Ql (Plasma cell-free+WBC DNA) [Interp] Negative [facility] Comment on above: Order Comment: Speci men Type: BLOOD SPECIMEN Ordering Facility: [facility] Address: [address] [place] [address] Performed By: #### M AT21 #### [facility] CLIA [id number] [address] [place] [address] URINE CULTUREon 12-26-2022 Bacteria identified Cx Nom (U) 50,000-<100,000 CFU/ml Normal urogenital kathy [place] C. trachomatis+N. gonorrhoea e DNA TESS+probe Ql (U)on 12-25-2022 C. trachomatis DNA TESS+probe Ql (Unsp spec) Negative Negative for Chlamydia trachomatis by amplificaton [place] N. gonorrhoeae DNA TESS+probe Ql (Unsp spec) Negative Negative for Neisseria gonorrhoeae by amplification [place] CBC panel Auto (Bld)on 12-25 Erythrocyte distribution width (RBC) [Ratio] 12.0 % 11.5 - 15.0 % [place] Hematocrit (Bld) [Volume fraction] 42.7 % 36.0 - 46.0 % [place] Hemoglobin (Bld) [Mass/Vol] 14.6 g/dL 11.5 - 15.5 g/dL [place] MCH (RBC) [Entitic mass] 29.5 pg 26.0 - 34.0 pg [place] MCHC (RBC) [Mass/Vol] 34.2 g/dL 30.5 - 36.0 g/dL [place] MCV (RBC) [Entitic vol] 86.3 fL 80.0 - 100.0 fL [place] Nucleated RBC (Bld) [#/Vol] <0.01 k/uL [place] Platelet mean volume (Bld) [Entitic vol] 11.1 fL 9.0 - 12.7 fL [place] Platelets (Bld) [#/Vol] 226 10*3/uL 150 - 400 k/uL [place] RBC (Bld) [#/Vol] 4.95 10*6/uL 3.90 - 5.20 m/uL [place] WBC (Bld) [#/Vol] 8.70 10*3/uL 3.70 - 11.00 k/u L [place] HEP B SURF AG [facility] 023 HBV surface Ag Ql (S) Negative Negative [place] HEP C AB IA W/CONF [facility] HCV Ab Ql (S) Negative Negative [place] HIV 1+2 Ab IA Qlon HIV 1 and 2 Ab IA.rapid Nom [place] HIV 1+2 Ab+HIV1 p24 Ag IA Ql Non-Reactive Nonreactive [place] HIV Interpretation [facility] RUBELLA IGG ABon 12-25-2022 Rubella IgG, Qual Positive Positive [facility] Reagin and Treponema pallidu m IgG and IgM [Interp]on 12-25-2022 Syphilis Interpretation Cannot exclude recent Treponemal infection if specimen collected within 7-10 days after appearance of suspect lesions or 2-3 weeks after an exposure. Clinical correlation is required. [place] T. pallidum IgG+IgM IA Ql (S) Non-Reactive Nonreactive [place] TSH BLDon 12-25-2022 TSH Qn 0.951 m[IU]/L 0.510 - 4.300 mIU/L [place] TYPE + SCREEN PRENATALon ABO B [place] HIstorical Ab Scr Status Negative [place] Rh Nom (Bld) Positive [place] Type and Screen Expiration 12/28/2022 23:59 [place] URINE OB DIP B/Oon Glucose Ql (U) Negative Neg mg/dL [place] Protein.monoclonal (U) [Mass/Vol] Negative Neg mg/dL [place] HCG QUAL UR B/Oon 11-30-2022 status Positive neg - pos Talita barbour [facility] Quality Check Yes [place] CNPNon 11-10-2022 [facility] NATA PENALOZA ( ) 02 F [facility] Date Time Provider Department 11/10/22 WESLEY RODRÍGUEZ [facility] During your visit today, we recorded the following information about you: Wesley Rodríguez [facility] 11/10/2022 9:35 AM Signed I called Nata about the IOP at the request of Rajni Evans. She declined. Allergies As of Date: 11/10/2022 (No Known Allergies) Date Reviewed: 10/02/2022 Reviewed by: Carie Perez MA - Fully Assessed Reason for Visit: Patient Update [1234] Prescriptions as of 11/10/2022 - hydrOXYzine HCl (ATARAX) 10 mg tablet - zolpidem (AMBIEN) 5 mg tablet Take 1 tablet by mouth at bedtime as needed for insomnia for up to 30 days. - hydrOXYzine pamoate (VISTARIL) 25 mg capsule Take 1 capsule by mouth once daily as needed. - cetirizine (ZYRTEC) 10 mg tablet Take 1 tablet by mouth once daily. - fluticasone (FLONASE ALLERGY RELIEF) 50 mcg/actuation nasal spray Instill 2 sprays in each nostril once daily. - lamoTRIgine (LAMICTAL) 25 mg tablet Take 1 tablet by mouth once daily for 2 weeks, then increase to 2 tablets (50mg) daily for 2 weeks. - lamoTRIgine (LAMICTAL) 100 mg tablet Take 1 tablet by mouth once daily. 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 trachomatis+N. gonorrhoea e DNA TESS+probe Ql (Unsp spec)on 10-03-2022 C. trachomatis DNA TESS+probe Ql (Unsp spec) Negative Negative for Chlamydia trachomatis by amplificaton [place] N. gonorrhoeae DNA TESS+probe Ql (Unsp spec) Negative Negative for Neisseria gonorrhoeae by amplification [place] JOHN / TRICHOMONAS AMPLIF ICATIONon 10-03-2022 C. glabrata RNA TESS+probe Ql (Vag fld) Negative Negative for John glabrata [place] John albicans, C. dubliniensis, C. parapsilosis, and C. tropicalis RNA TESS+probe Ql (Vag fld) Positive Abnormal Negative for John species [place] T. vaginalis DNA TESS+probe Ql (Unsp spec) Negative Negative for Trichomonas vaginalis by amplification [place] HCG QUAL UR B/Oon 10-02-2022 status Negative neg - pos [facility] Quality Check Yes [place] UA DIP, URINE (POC)on 2021 BILIRUBIN UA (POCT) Negative Negative [facility] CLARITY UA (POCT) Clear [facility] COLOR UA (POCT) Dark yellow [facility] GLUCOSE UA (POCT) Negative Negative mg/dL [facility] HEMOGLOBIN/BLOOD UA (POCT) Negative Negative [place] KETONE UA (POCT) Negative Negative mg/dL [facility] LEUKOCYTES UA (POCT) Trace Abnormal Negative [place] NITRITE UA (POCT) Negative Negative [facility] PH UA (POCT) 5.0 4.5 - 8.0 [place] Protein Ql (U) Negative Negative mg/dL [facility] SPECIFIC GRAVITY UA (POCT) 1.025 1.005 - 1.030 [place] UROBILINOGEN UA (POCT) 0.2 E.U./dL Normal E.U./dL [place] HCG QUAL UR B/Oon 07-16-2022 status Negative neg - pos [facility] d [facility] Quality Check Yes [place] UA DIP, URINE (POC)on 2021 BILIRUBIN UA (POCT) Negative Negative [facility] CLARITY UA (POCT) Cloudy [facility] COLOR UA (POCT) Other [place] GLUCOSE UA (POCT) Negative Negative mg/dL [facility] HEMOGLOBIN/BLOOD UA (POCT) Negative Negative [place] KETONE UA (POCT) Negative Negative mg/dL [facility] LEUKOCYTES UA (POCT) Negative Negative [place] NITRITE UA (POCT) Negative Negative [facility] PH UA (POCT) 6.0 4.5 - 8.0 [place] Protein Ql (U) Negative Negative mg/dL [facility] SPECIFIC GRAVITY UA (POCT) >=1.030 1.005 - 1.030 [place] UROBILINOGEN UA (POCT) 0.2 E.U./dL Normal E.U./dL [place] XR THORACIC GENERAL 3V AP/LA T/SWIMMERSon 07-03-2022 [place] UA DIP, URINE (POC)on 2021 BILIRUBIN UA (POCT) Negative Negative [facility] CLARITY UA (POCT) Clear [facility] COLOR UA (POCT) Yellow [place] GLUCOSE UA (POCT) Negative Negative mg/dL [facility] HEMOGLOBIN/BLOOD UA (POCT) Moderate Abnormal Negative [place] KETONE UA (POCT) Trace Negative mg/dL [facility] LEUKOCYTES UA (POCT) Small Abnormal Negative [place] NITRITE UA (POCT) Positive Abnormal Negative [facility] PH UA (POCT) 6.5 4.5 - 8.0 [place] Protein Ql (U) 30 mg/dL Abnormal Negative mg/dL [facility] SPECIFIC GRAVITY UA (POCT) 1.025 1.005 - 1.030 [place] UROBILINOGEN UA (POCT) 1.0 E.U./dL Normal E.U./dL [place] Vital Signs Date Time Vital Sign Value Performing Clinician Davidi codiy 07-11-2024 12:49-0400 Body mass index (BMI) [Ratio] 23.41 kg/m2 Linda Arlen SWEETBREAD TRIMMER[employer]ER Work Phone: [place] 07-11-2024 12:49-0400 Body weight 61.87 kg Linda Arlen SWEETBREAD TRIMMER[employer]ER Work Phone: [place] 07-11-2024 12:49-0400 Diastolic blood pressure 78 mm[Hg] Linda Arlen SWEETBREAD TRIMMER.[employer] SERVER Work Phone: [place] 07-11-2024 12:49-0400 Systolic blood pressure 126 mm[Hg] Linda Arlen SWEETBREAD TRIMMER.[employer] AND [employer] SERVER Work Phone: [place] 01-24-2024 15:29-0400 Body mass index (BMI) [Ratio] 22.52 kg/m2 Bharathi Estrada MD Work Phone: [place] 01-24-2024 15:29-0400 Body weight 59.51 kg Bharathi Estrada MD Work Phone: [place] 01-24-2024 15:29-0400 Diastolic blood pressure 70 mm[Hg] Bharathi Estrada MD Work Phone: [place] 01-24-2024 15:29-0400 Systolic blood pressure 110 mm[Hg] Bharathi Estrada MD Work Phone: [place] 11-23-2023 12:02-0500 Body temperature 97.81 [degF] Jeannine Vo SWEETBREAD TRIMMER.[employer] SERVER Work Phone: [place] 11-23-2023 12:02-0500 Diastolic blood pressure 79 mm[Hg] Jeannine Vo SWEETBREAD TRIMMER.[employer] SERVER Work Phone: [place] 11-23-2023 12:02-0500 Heart rate 69 /min Jeannine Vo SWEETBREAD TRIMMER.[employer] SERVER Work Phone: [place] 11-23-2023 12:02-0500 Systolic blood pressure 116 mm[Hg] Jeannine Vo SWEETBREAD TRIMMER.[employer] SERVER Work Phone: [place] 08-19-2023 10:33-0500 Body weight 65.3 kg Elysia Collier MD Work Phone: [place] 08-19-2023 10:33-0500 Diastolic blood pressure 62 mm[Hg] Elysia Collier MD Work Phone: [place] 08-19-2023 10:33-0500 Respiratory rate 18 /min Elysia Collier MD Work Phone: [place] 08-19-2023 10:33-0500 Systolic blood pressure 128 mm[Hg] Elysia Collier MD Work Phone: [place] 08-04-2023 16:00-0400 Diastolic blood pressure 78 mm[Hg] Nurse Gwendolyn Work Phone: [place] 08-04-2023 16:00-0400 Systolic blood pressure 128 mm[Hg] Nurse Snow Work Phone: [place] 07-23-2023 14:50-0400 Body weight 74.11 kg Remi Powell MD Work Phone: [place] 07-23-2023 14:50-0400 Diastolic blood pressure 74 mm[Hg] Remi Powell MD Work Phone: [place] 07-23-2023 14:50-0400 Respiratory rate 18 /min Remi Powell MD Work Phone: [place] 07-23-2023 14:50-0400 Systolic blood pressure 130 mm[Hg] Remi Powell MD Work Phone: [place] 07-16-2023 16:13-0400 Body weight 74.03 kg Remi Powell MD Work Phone: [place] 07-16-2023 16:13-0400 Diastolic blood pressure 68 mm[Hg] Remi Powell MD Work Phone: [place] 07-16-2023 16:13-0400 Systolic blood pressure 116 mm[Hg] Remi Powell MD Work Phone: [place] 07-01-2023 15:33-0400 Body weight 74.03 kg Remi Powell MD Work Phone: [place] 07-01-2023 15:33-0400 Diastolic blood pressure 64 mm[Hg] Remi Powell MD Work Phone: [place] 07-01-2023 15:33-0400 Systolic blood pressure 102 mm[Hg] Remi Powell MD Work Phone: [place] 06-25-2023 15:17-0400 Body weight 73.23 kg Elysia Collier MD Work Phone: [place] 06-25-2023 15:17-0400 Diastolic blood pressure 80 mm[Hg] Elysia Collier MD Work Phone: [place] 06-25-2023 15:17-0400 Respiratory rate 18 /min Elysia Collier MD Work Phone: [place] 06-25-2023 15:17-0400 Systolic blood pressure 130 mm[Hg] Elysia Collier MD Work Phone: [place] 05-26-2023 18:47-0400 Body temperature 98.29 [degF] Tonya Gerardo SWEETBREAD TRIMMER.[employer]AGE SERVER Work Phone: [place] 05-26-2023 18:47-0400 Body weight 73.39 kg Tonya Gerardo SWEETBREAD TRIMMER.[employer]AGE SERVER Work Phone: [place] 05-26-2023 18:47-0400 Diastolic blood pressure 76 mm[Hg] Tonya Gerardo SWEETBREAD TRIMMER.[employer] SERVER Work Phone: [place] 05-26-2023 18:47-0400 Heart rate 85 /min Tonya Gerardo SWEETBREAD TRIMMER.[employer] AND B[employer]AGE SERVER Work Phone: [place] 05-26-2023 18:47-0400 Respiratory rate 21 /min Tonya Gerardo SWEETBREAD TRIMMER.[employer] AND BEVERAGE SERVER Work Phone: [place] 05-26-2023 18:47-0400 SaO2% (BldA) [Mass fraction] 97 % Tonya Gerardo SWEETBREAD TRIMMER.[employer] AND BEVERAGE SERVER Work Phone: [place] 05-26-2023 18:47-0400 Systolic blood pressure 104 mm[Hg] Tonya Gerardo SWEETBREAD TRIMMER.[employer] AND B[employer]AGE SERVER Work Phone: [place] 05-21-2023 08:44-0400 Body weight 71.71 kg Remi Powell MD Work Phone: [place] 05-21-2023 08:44-0400 Diastolic blood pressure 62 mm[Hg] Remi Powell MD Work Phone: [place] 05-21-2023 08:44-0400 Systolic blood pressure 112 mm[Hg] Remi Powell MD Work Phone: [place] 05-19-2023 14:54-0400 Body temperature 97.59 [degF] Jerri Saab SWEETBREAD TRIMMER.[employer] AND BEVERAGE SERVER Work Phone: [place] 05-19-2023 14:54-0400 Diastolic blood pressure 82 mm[Hg] Jerri Saab SWEETBREAD TRIMMER.[employer] AND BEVERAGE SERVER Work Phone: [place] 05-19-2023 14:54-0400 Heart rate 105 /min Jerri Saab SWEETBREAD TRIMMER.[employer] AND BEVERAGE SERVER Work Phone: [place] 05-19-2023 14:54-0400 SaO2% (BldA) [Mass fraction] 98 % Jerri Saab SWEETBREAD TRIMMER.FO[employer] AND BEVERAGE SERVER Work Phone: [place] 05-19-2023 14:54-0400 Systolic blood pressure 128 mm[Hg] Jerri Saab SWEETBREAD TRIMMER.FOOD AND BEVERAGE SERVER Work Phone: [place] 04-20-2023 08:18-0400 Body weight 68.58 kg Orlando Burroughs MD Work Phone: [place] 04-20-2023 08:18-0400 Diastolic blood pressure 60 mm[Hg] Orlando Burroughs MD Work Phone: [place] 04-20-2023 08:18-0400 Systolic blood pressure 112 mm[Hg] Orlando Burroughs MD Work Phone: [place] 01-29-2023 08:12-0400 Body weight 64.32 kg Remi Powell MD Work Phone: [place] 01-29-2023 08:12-0400 Diastolic blood pressure 64 mm[Hg] Remi Powell MD Work Phone: [place] 01-29-2023 08:12-0400 Systolic blood pressure 122 mm[Hg] Remi Powell MD Work Phone: [place] 12-25-2022 09:36-0400 Body height 162.6 cm Remi Powell MD Work Phone: [place] 12-25-2022 09:36-0400 Body weight 66.22 kg Remi Powell MD Work Phone: [place] 12-25-2022 09:36-0400 Diastolic blood pressure 62 mm[Hg] Remi Powell MD Work Phone: [place] 12-25-2022 09:36-0400 Systolic blood pressure 106 mm[Hg] Remi Powell MD Work Phone: [place] 11-30-2022 12:09-0500 Body temperature 97.9 [degF] Maegan Schibli PA-C Work Phone: [place] 11-30-2022 12:09-0500 Diastolic blood pressure 84 mm[Hg] Maegan Schibli PA-C Work Phone: [place] 11-30-2022 12:09-0500 Heart rate 101 /min Maegan Schibli PA-C Work Phone: [place] 11-30-2022 12:09-0500 SaO2% (BldA) [Mass fraction] 98 % Maegan Schibli PA-C Work Phone: [place] 11-30-2022 12:09-0500 Systolic blood pressure 127 mm[Hg] Maegan Schibli PA-C Work Phone: [place] 10-02-2022 16:43-0500 Body temperature 98.01 [degF] [place] Garrylechristophe SWEETBREAD TRIMMER.FO[employer] AND BEVERAGE SERVER Work Phone: [place] 10-02-2022 16:43-0500 Body weight 66.86 kg Washington Goss SWEETBREAD TRIMMER.[employer] AND BEVERAGE SERVER Work Phone: [place] 10-02-2022 16:43-0500 Diastolic blood pressure 82 mm[Hg] [place] Castañedalechristophe SWEETBREAD TRIMMER.FOOD AND BEVERAGE SERVER Work Phone: [place] 10-02-2022 16:43-0500 Heart rate 92 /min [place] Goss SWEETBREAD TRIMMER.FOOD AND BEVERAGE SERVER Work Phone: [place] 10-02-2022 16:43-0500 Respiratory rate 18 /min [place] Pendlechristophe SWEETBREAD TRIMMER.FOOD AND BEVERAGE SERVER Work Phone: [place] 10-02-2022 16:43-0500 SaO2% (BldA) [Mass fraction] 97 % [place] Goss SWEETBREAD TRIMMER.FO[employer] AND BEVERAGE SERVER Work Phone: [place] 10-02-2022 16:43-0500 Systolic blood pressure 122 mm[Hg] [place] Goss SWEETBREAD TRIMMER.FOOD AND BEVERAGE SERVER Work Phone: [place] 07-17-2022 16:19-0400 Diastolic blood pressure 80 mm[Hg] Hellen Paez MD Work Phone: [place] 07-17-2022 16:19-0400 Heart rate 80 /min Hellen Paez MD Work Phone: [place] 07-17-2022 16:19-0400 Systolic blood pressure 130 mm[Hg] Hellen Paez MD Work Phone: [place] 07-16-2022 15:54-0400 Body height 165.1 cm Elysia Reaper SWEETBREAD TRIMMER.FO[employer] AND BEVERAGE SERVER Work Phone: [place] 07-16-2022 15:54-0400 Body weight 70.4 kg Elysia Reaper SWEETBREAD TRIMMER.[employer] AND BEVERAGE SERVER Work Phone: [place] 07-16-2022 15:54-0400 Diastolic blood pressure 80 mm[Hg] Elysia Reaper SWEETBREAD TRIMMER.FO[employer] AND BEVERAGE SERVER Work Phone: [place] 07-16-2022 15:54-0400 Systolic blood pressure 118 mm[Hg] Elysia Reaper SWEETBREAD TRIMMER.FO[employer] AND BEVERAGE SERVER Work Phone: [place] 04-10-2022 18:09-0400 Body height 162.6 cm Luana Ball SWEETBREAD TRIMMER.FOOD AND BEVERAGE SERVER Work Phone: [place] 04-10-2022 18:09-0400 Body mass index (BMI) [Percentile] Per age and sex 90.55 % Luana Ball SWEETBREAD TRIMMER.FOOD AND BEVERAGE SERVER Work Phone: [place] 04-10-2022 18:09-0400 Body weight 74.39 kg Luana Ball SWEETBREAD TRIMMER.FOOD AND BEVERAGE SERVER Work Phone: [place] 04-10-2022 18:09-0400 Diastolic blood pressure 88 mm[Hg] Luana Ball SWEETBREAD TRIMMER.[employer] AND BEVERAGE SERVER Work Phone: [place] 04-10-2022 18:09-0400 Heart rate 89 /min Luana Ball SWEETBREAD TRIMMER.[employer] AND BEVERAGE SERVER Work Phone: [place] 04-10-2022 18:09-0400 Respiratory rate 16 /min Luana Ball SWEETBREAD TRIMMER.FOOD AND BEVERAGE SERVER Work Phone: [place] 04-10-2022 18:09-0400 SaO2% (BldA) [Mass fraction] 99 % Luana Ball SWEETBREAD TRIMMER.[employer] AND BEVERAGE SERVER Work Phone: [place] 04-10-2022 18:09-0400 Systolic blood pressure 142 mm[Hg] Luana Ball SWEETBREAD TRIMMER.[employer]OD AND BEVERAGE SERVER Work Phone: [place] 03-31-2022 16:00-0400 Body height 162.5 cm Angela Ray MD Work Phone: [place] 03-31-2022 16:00-0400 Body mass index (BMI) [Percentile] Per age and sex 92.5 % Angela Ray MD Work Phone: [place] 03-31-2022 16:00-0400 Body weight 77.07 kg Angela Ray MD Work Phone: [place] 03-31-2022 16:00-0400 Diastolic blood pressure 88 mm[Hg] Angela Ray MD Work Phone: [place] 03-31-2022 16:00-0400 Heart rate 89 /min Angela Ray MD Work Phone: [place] 03-31-2022 16:00-0400 Systolic blood pressure 140 mm[Hg] Angela Ray MD Work Phone: [place] 03-04-2022 17:56-0400 Body mass index (BMI) [Percentile] Per age and sex 91.93 % Louann Garcia PA-C Work Phone: [place] 06-01-2022 17:56-0400 Body temperature 98.4 [degF] Louann Wormald PA-C Work Phone: [place] 03-04-2022 17:56-0400 Body weight 78.52 kg Louann Wormald PA-C Work Phone: [place] 03-04-2022 17:56-0400 Diastolic blood pressure 75 mm[Hg] Louann Wormald PA-C Work Phone: [place] 03-04-2022 17:56-0400 Heart rate 83 /min Louann Wormald PA-C Work Phone: [place] 03-04-2022 17:56-0400 Respiratory rate 12 /min Louann Wormald PA-C Work Phone: [place] 03-04-2022 17:56-0400 SaO2% (BldA) [Mass fraction] 100 % Louann Wormald PA-C Work Phone: [place] 03-04-2022 17:56-0400 Systolic blood pressure 128 mm[Hg] Louann Wormald PA-C Work Phone: [place] Encounters Encounter Date Encounter Type Care Provider Facility Start: 04-25-2025 ambulatory Efewongbe Oleghe Facili ty:[facility] Start: 04-23-2025 End: 04-23-2025 ambulatory Efewongbe Oleghe Facility:[facility] Start: 04-12-2025 End: 04-12-2025 ambulatory Tonya Sethi Facility:[facility] Start: 04-03-2025 End: 04-03-2025 ambulatory Efewongbe Oleghe Facility:[facility] Start: 03-26-2025 End: 03-26-2025 ambulatory Efewongbe Darye Facility:[facility] Start: 03-23-2025 End: 03-23-2025 ambulatory Rosie Stinson Facility:[facility] Start: 02-21-2025 End: 02-21-2025 ambulatory Jesus LLANES Facility:[facility] Start: 02-20-2025 End: 02-20-2025 ambulatory Jesus LLANES Facility:[facility] Start: 02-12-2025 End: 02-12-2025 ambulatory Matilde Castillo Facility:[facility] Start: 02-06-2025 End: 02-06-2025 ambulatory Rosie Stinson Facility:[facility] Start: 02-06-2025 End: 02-06-2025 ambulatory Rosie Stinson Facility:[facility] Start: 02-02-2025 End: 02-02-2025 ambulatory [facility] Facility:[facility] Start: 01-22-2025 ambulatory Vani Dossi [facility] Start: 01-04-2025 End: 01-04-2025 ambulatory Sharmin Edmondswhatley Facility:[facility] Start: 01-04-2025 End: 01-04-2025 ambulatory Shar[facility] Facility:[facility] Start: 12-18-2024 ambulatory Vani Dossi Facility:[facility] Start: 12-12-2024 End: 12-12-2024 ambulatory [facility] Start: 11-27-2024 End: 11-27-2024 ambulatory Vani Dossi Facility:[facility] Start: 11-13-2024 ambulatory Vani Dossi [facility] Start: 10-30-2024 End: 10-30-2024 ambulatory Vani Dossi Facility:[facility] Start: 10-25-2024 End: 10-25-2024 ambulatory Sharmin [facility] Facility:[facility] Start: 10-23-2024 ambulatory Vani Dossi [facility] Start: 10-09-2024 End: 10-09-2024 ambulatory Vani Dossi Facility:[facility] Start: 09-15-2024 Encounter for gynecological examination (general) (routine) without abnormal findings Rosie Stinson [facility] Start: 09-15-2024 End: 09-15-2024 ambulatory Rosie Stinson Facility:[facility] Start: 09-15-2024 End: 09-15-2024 ambulatory Rosie Stinson Facility:[facility] Start: 09-11-2024 End: 09-11-2024 ambulatory Vani Dossi Facility:[facility] Start: 08-28-2024 End: 08-28-2024 ambulatory Vani Dossi Facility:[facility] Start: 07-12-2024 End: 07-12-2024 Orders Only Bharathi Estrada MD Work Phone: OB/Gynecology Comment on above: Ovarian cyst, right (Primary Dx) Start: 07-11-2024 End: 07-11-2024 ambulatory HELLEN PAEZ OB/Gynecology Start: 07-11-2024 End: 07-11-2024 Patient encounter procedure Linda Márquez SWEETBREAD TRIMMER.FOOD AND BEVERAGE SERVER Work Phone: OB/Gynecology Comment on above: Surveillance of prev iously prescribed intrauterine contraceptive device (Primary Dx) Start: 05-17-2024 End: 05-17-2024 ambulatory Sharmin Hernandez Facility:[facility] Start: 04-28-2024 ambulatory Elizabeth Dang Faci lity:[facility] Start: 04-28-2024 End: 04-28-2024 ambulatory Elizabeth Dang Facility:[facility] Start: 01-24-2024 End: 01-24-2024 Patient encounter procedure Bharathi Estrada MD Work Phone: OB/Gynecology Comment on above: Pelvic pain in femal e (Primary Dx); IUD check up; Abnormal uterine bleeding (AUB) Start: 11-23-2023 End: 11-23-2023 Patient encounter procedure Jeannine Merrill SWEETBREAD TRIMMER.FOOD AND BEVERAGE SERVER Work Phone: [facility] Comment on above: Acute cystitis with hematuria (Primary Dx); UTI symptoms Start: 09-14-2023 End: 09-14-2023 Patient encounter procedure Remi Powell MD Work Phone: Obstetrics/Gynecology Comment on above: care and examination (Primary Dx); Cervical cancer screening Start: 08-20-2023 Telephone [place] [address] [address] Comment on above: Hospital F/U Start: 08-19-2023 End: 08-19-2023 Patient encounter procedure Elysia Collier MD Work Phone: Obstetrics/Gynecology Comment on above: Encounter for screen ing for maternal depression (Primary Dx) Start: 08-04-2023 End: 08-04-2023 Patient encounter procedure Nurse Plant Operations Coordinator [facility] Gwendolyn Work Phone: Obstetrics/Gynecology Comment on above: BP check (Primary Dx ) Start: 08-04-2023 End: 08-04-2023 Patient encounter status Nurse Gwendolyn Work Phone: [place] Start: 08-04-2023 ambulatory Elysia woodruff MD Work Phone: Obstetrics/Gynecology Comment on above: Blood pressure Start: 07-29-2023 Telephone encounter Delaney Ney Snowden SWEETBREAD TRIMMER.CNM Work Phone: [facility] Obstetrics & Gynecology Comment on above: Appointment (Needs o ne week bp check for GHTN) Start: 07-27-2023 End: 07-30-2023 Evaluation and management of inpatient HELLEN PAEZ Facility:[facility] Start: 07-26-2023 End: 07-26-2023 [facility] Start: 07-26-2023 Telephone encounter Darren Rodríguez MD Work Phone: Obstetrics/Gynecology Start: 07-23-2023 End: 07-23-2023 Patient encounter procedure Remi Powell MD Work Phone: Obstetrics/Gynecology Comment on above: Encounter for superv ision of normal in third trimester, unspecified (Primary Dx) Start: 07-23-2023 End: 07-24-2023 ambulatory Georgiana Kasper [facility] Comment on above: Population Health Na vigation Outreach (Peds/OB) Start: 07-16-2023 End: 07-16-2023 Patient encounter procedure Remi Powell MD Work Phone: Obstetrics/Gynecology Comment on above: Encounter for superv ision of normal in third trimester, unspecified (Primary Dx) Start: 07-01-2023 End: 07-01-2023 Patient encounter procedure Remi Powell MD Work Phone: Obstetrics/Gynecology Comment on above: Encounter for superv ision of normal first in third trimester (Primary Dx) Start: 06-25-2023 End: 06-25-2023 Patient encounter procedure Elysia Collier MD Work Phone: Obstetrics/Gynecology Comment on above: Encounter for superv ision of normal in third trimester, unspecified (Primary Dx); Elevated blood pressure affecting in third trimester, antepartum; Need for influenza vaccination; 34 weeks gestation of Start: 05-26-2023 End: 05-26-2023 Patient encounter procedure Tonya Gerardo APRN.FOOD AND BEVERAGE SERVER Work Phone: [facility] Comment on above: Pharyngitis, unspeci fied etiology (Primary Dx) Start: 05-21-2023 End: 05-21-2023 Patient encounter procedure Remi Powell MD Work Phone: Obstetrics/Gynecology Comment on above: Encounter for superv ision of normal first in third trimester (Primary Dx) Start: 05-19-2023 End: 05-19-2023 Patient encounter procedure Jerri Saab APRN.FOOD AND BEVERAGE SERVER Work Phone: [facility] Comment on above: Sore throat (Primary Dx); Suspected COVID-19 virus infection Start: 04-20-2023 End: 04-20-2023 Patient encounter procedure Orlando Burroughs MD Work Phone: Obstetrics/Gynecology Comment on above: Encounter for superv ision of normal first in second trimester (Primary Dx); 24 weeks gestation of Start: 03-19-2023 End: 03-19-2023 Patient encounter procedure Plant Operations Coordinator [facility] Work Phone: Maternal Medicine Comment on above: Encounter for anatomic survey (Primary Dx); Encounter for screening of mother Start: 02-09-2023 ambulatory Omar Calabrese Work Phone: Internal Medicine [facility] Comment on above: Positive testing Start: 02-09-2023 E-mail encounter fro m caregiver Omar Velarde PA-C Work Phone: [facility] Start: 02-01-2023 Telephone encounter S Misael vaz MD Work Phone: Maternal Medicine Comment on above: Results (NIPT ) Start: 01-29-2023 End: 01-29-2023 Patient encounter procedure Remi Powell MD Work Phone: Obstetrics/Gynecology Comment on above: Encounter for superv ision of normal first in first trimester (Primary Dx); IUD migration, initial encounter Start: 01-25-2023 End: 01-26-2023 ambulatory Brie MARTINEZESTEBAN Facility:[facility] Start: 01-05-2023 ambulatory Brett [facility] Work Phone: [facility] Comment on above: Vaginal culture resu lts/treatment - January 05, 2023 Urine culture - Apri l 2022 Start: 01-05-2023 E-mail encounter libra dale caregiver Brett LLANES-C Work Phone: [facility] Start: 12-25-2022 End: 12-25-2022 Patient encounter procedure Remi Powell MD Work Phone: Obstetrics/Gynecology Comment on above: Encounter for superv ision of normal first in first trimester (Primary Dx); confirmed by positive urine test Start: 11-30-2022 End: 11-30-2022 Patient encounter procedure Maeagn [facility] Work Phone: [facility] Comment on above: confirmed by positive urine test (Primary Dx); Possible Start: 11-10-2022 Telephone encounter Wesley carlson [facility] Work Phone: Psychiatry Comment on above: Patient Update Start: 11-03-2022 End: 11-03-2022 Patient encounter procedure Rajni BEAL Work Phone: Psychology Comment on above: Bipolar II disorder (HCC) (Primary Dx); Post traumatic stress disorder (PTSD); Eating disorder, unspecified type Start: 10-03-2022 Telephone encounter Patricia Nuno APRN.FOOD AND BEVERAGE SERVER Work Phone: [facility] Comment on above: Results Start: 10-02-2022 End: 10-02-2022 Office outpatient visit 25 minutes Washington Goss APRN.FOOD AND BEVERAGE SERVER Work Phone: [facility] Comment on above: Urinary frequency (P rimary Dx); Vaginal discharge Start: 07-22-2022 End: 07-22-2022 Patient encounter procedure Wilver Montemayor DC Work Phone: Integrative Medicine Comment on above: Chronic bilateral th oracic back pain (Primary Dx) Start: 07-17-2022 End: 07-18-2022 Office outpatient visit 25 minutes Hellen Paez MD Work Phone: Internal Medicine [facility] Comment on above: Primary insomnia (Pr imary Dx); Cyclothymia; Recurrent syncope; Chronic maxillary sinusitis; Encounter for immunization Start: 07-16-2022 End: 07-16-2022 Patient encounter procedure Elysia Campbell APRN.FOOD AND BEVERAGE SERVER Work Phone: Gynecology Comment on above: Urinary urgency (Irene jennifer Dx); Feeling of incomplete bladder emptying; Vaginal discharge; Vaginal odor; Urinary frequency Start: 07-08-2022 End: 07-08-2022 Patient encounter procedure Wilver Montemayor DC Work Phone: Integrative Medicine Comment on above: Chronic bilateral th oracic back pain (Primary Dx); Chronic bilateral 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 sciatica Start: 07-03-2022 End: 07-03-2022 Subsequent hospital visit by physician [facility] Comment on above: Chronic bilateral th oracic back pain [M54.6, G89.29] Start: 07-01-2022 End: 07-01-2022 Patient encounter procedure Wilver Montemayor DC Work Phone: Integrative Medicine Comment on above: Chronic bilateral th oracic back pain (Primary Dx) Start: 04-21-2022 ambulatory Renea Vang Work Phone: Behavioral Health Comment on above: Behavioral Health Ou treach Start: 04-21-2022 E-mail encounter fro m caregiver Renea BEAL Work Phone: [facility] Start: 04-14-2022 End: 04-14-2022 Patient encounter procedure Carmne Ramirez MD Work Phone: Otolaryngology Comment on above: Allergic rhinitis, u nspecified seasonality, unspecified trigger (Primary Dx); Dysfunction of both eustachian tubes Start: 04-13-2022 ambulatory Roxie Thorne RN INDP GINGER APDRON Start: 04-13-2022 Follow-up encounter Roxie Thorne RN Fireworks Inspector Management Comment on above: Transition Of Care ( [facility] - Hospital D/C Follow up - Initial Outreach) Start: 04-10-2022 End: 04-10-2022 Patient encounter procedure Luana Nevarez APRN.CNP Work Phone: [facility] Comment on above: Procedure not dax d out (Primary Dx) Start: 04-08-2022 End: 04-08-2022 Emergency department patient visit Maxine Dewitt DAMON Work Phone: Gynecology Comment on above: Emergency contracept ion (Primary Dx); Encounter for initial prescription of contraceptive pills; Decreased appetite; History of recent stressful life event Start: 04-08-2022 End: 04-08-2022 Telemedicine consultation with patient Maxine Dewitt DAMON Work Phone: [facility] Start: 03-31-2022 End: 04-01-2022 Initial preventive medicine new pt age 18-39yrs Angela Ray MD Work Phone: Internal Medicine [facility] Comment on above: Wellness examination (Primary Dx); Chronic maxillary sinusitis; Maxillary micrognathia; Velopharyngeal insufficiency, congenital; Cleft palate, unspecified; Chronic midline 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 sciatica; Vasovagal syncope Start: 03-31-2022 End: 04-01-2022 Patient encounter status Angela Ray MD Work Phone: Internal Medicine [facility] Start: 03-04-2022 End: 03-04-2022 Patient encounter procedure Louann Garcia PA-C Work Phone: [facility] Comment on above: Leukocytes in urine (Primary Dx); Dysuria; Urinary frequency Start: 03-04-2022 ambulatory Romario briones PA-C Work Phone: Telemedicine Comment on above: Treatment not availa ble (Primary Dx) Uti & refill Start: 02-03-2022 Phys/qhp online evaluation & management service Maegan Stinson APRN.FOOD AND BEVERAGE SERVER Work Phone: Telemedicine Comment on above: Treatment not availa ble (Primary Dx) Procedures Date Procedure Procedure Detail Performing Clinician Start: 07-11-2024 Us pelvic nonobstetr ic real-time image complete Bharathi Estrada MD Work Phone: Start: 11-23-2023 Urnls dip stick/tabl et rgnt auto w/o microscopy Jeannine Barbour Vo SWEETBREAD TRIMMER.FOOD AND BEVERAGE SERVER Work Phone: Start: 07-27-2023 Antibody screen HELLEN PAEZ Comment on above: Order Comment: Speci men Type: BLOOD SPECIMENOrdering Facility: [facility] Address: [address] [place] [address] Performed By: #### T SPN ####[facility] BLOOD BANKCLIA [id number] [place] [address] [place] Start: 07-23-2023 URINE OB DIP B/O Rosana Powell MD Work Phone: Start: 07-16-2023 URINE OB DIP B/O Rosana Powell MD Work Phone: Start: 07-01-2023 URINE OB DIP B/O Rosana Powell MD Work Phone: Start: 06-25-2023 Antibody treponema pallidum Elysia Collier MD Work Phone: Start: 06-25-2023 Blood count complete automated Elysia Collier MD Work Phone: Start: 06-25-2023 INFLUENZA VACCINE, A GE 6 MO - 64 YR, QUADRIVALENT (AFLURIA, FLULAVAL, FLUZONE) Elysia Collier MD Work Phone: Start: 06-25-2023 URINE OB DIP B/O Elysia Collier MD Work Phone: Start: 05-26-2023 STREP A MOLECULAR (POC) Jesika Stearns PA-C Work Phone: Start: 05-21-2023 URINE OB DIP B/O Rosana Powell MD Work Phone: Start: 05-19-2023 STREP A MOLECULAR (POC) Jerri Saab APRN.FOOD AND BEVERAGE SERVER Work Phone: Start: 05-19-2023 COVID & INFLUENZA A/ B & RSV NAAT, ROUTINE Jerri Saab APRN.FOOD AND BEVERAGE SERVER Work Phone: Start: 05-19-2023 Iadna respiratry pro be & rev trnscr 3-5 targets Jerri Saab APRN.FOOD AND BEVERAGE SERVER Work Phone: Start: 05-19-2023 Sars-cov-2 detection by dna/rna Jerri Saab SWEETBREAD TRIMMER.FOOD AND BEVERAGE SERVER Work Phone: Start: 04-20-2023 URINE OB DIP B/O Vesna Burroughs MD Work Phone: Start: 03-19-2023 Us preg uterus after 1st trimest 10/04 gestation S Misael Evans MD Work Phone: Start: 01-29-2023 URINE OB DIP B/O Rosana Powell MD Work Phone: Start: 12-25-2022 URINE OB DIP B/O Rosana Powell MD Work Phone: Start: 12-25-2022 Antibody screen Remi Poewll MD Work Phone: Start: 12-25-2022 Blood count complete automated Remi Powell MD Work Phone: Start: 12-25-2022 Hepatitis c antibody Ib nilesh Powell MD Work Phone: Start: 12-25-2022 Iaad ia hepatitis b surface antigen Remi Powell MD Work Phone: Start: 11-30-2022 Urine test visual color cmprsn meths Maegan Morrissey PA-C Work Phone: Start: 10-02-2022 BACTERIAL VAGINOSIS AMPLIFICATION Washington Goss SWEETBREAD TRIMMER.FOOD AND BEVERAGE SERVER Work Phone: Start: 10-02-2022 End: 10-02-2022 Iadna chlamydia trachomatis amplified probe tq Washington Goss SWEETBREAD TRIMMER.FOOD AND BEVERAGE SERVER Work Phone: Start: 10-02-2022 Culture bacterial quanttative colony count urine Washington Goss SWEETBREAD TRIMMER.FOOD AND BEVERAGE SERVER Work Phone: Start: 10-02-2022 End: 10-02-2022 Urnls dip stick/tablet rgnt auto w/o microscopy Sylwia Ortiz SWEETBREAD TRIMMER.FOOD AND BEVERAGE SERVER Work Phone: Start: 07-17-2022 INFLUENZA VACCINE QUADRIVALENT 6 MO - 64 YRS IM Hellen Paez MD Work Phone: Start: 07-16-2022 End: 07-16-2022 Urnls dip stick/tablet rgnt auto w/o microscopy Elysia Campbell SWEETBREAD TRIMMER.FOOD AND BEVERAGE SERVER Work Phone: Start: 07-03-2022 Radex spine thoracic 3 views Wilver Montemayor DC Work Phone: Start: 03-31-2022 Adult depression scr eening assessment Angela Ray MD Work Phone: Start: 03-04-2022 Urnls dip stick/tabl et rgnt auto w/o microscopy [facility] Provider Plan of Treatment Date Care Activity Detail Author Start: 05-21-2033 Urine microalbumin profile [place] Start: 09-14-2026 Screening for malign ant neoplasm of cervix [place] Start: 05-15-2025 Urine microalbumin profile DTAP,TDAP,TD (7 - Td or Tdap) [place] Start: 10-13-2024 End: 10-13-2024 Patient encounter procedure 10/13/2024 11:00 AM EST Office Visit Obstetrics/Gynecology [address] [address] Elysia Collier MD [address] [place] [address] ANNUAL EXAM Obstetrics/Gynecolog y Comment on above: ANNUAL EXAM Start: 10-02-2024 End: 10-02-2024 Patient encounter procedure Obstetrics/Gynecolog y Comment on above: ANNUAL EXAM Start: 07-12-2024 End: 07-12-2025 US Pelvis PELVIC US [facility] Anc Imaging Routine Ovarian cyst, right Expected: 07/12/2024, Expires: 07/12/2025 [facility] Work Phone: Comment on above: Expected: 07/12/2024 , Expires: 07/12/2025 Start: 06-04-2024 Covid-19 Vaccine () Covid-19 Vaccine () [place] Start: 06-04-2024 Influenza vaccination Influenza Vacc ine (#1) [place] Start: 02-24-2024 End: 02-24-2024 Patient encounter procedure 02/24/2024 3:40 PM EDT Office Visit OB/Gynecology [address] [place] [id number] Minoo Arzate MD [address] [place] [address] Pelvic US/IUD follow up OB/Gynecology Comment on above: Pelvic US/IUD follow up Start: 02-24-2024 End: 02-24-2024 Manual pelvic examination 02/24/2024 3:00 PM EDT Procedure OB/Gynecology [address] [place] [address] Pelvic pain in female [R10.2] OB/Gynecology Comment on above: Pelvic pain in femal e [R10.2] Start: 01-24-2024 End: 01-23-2025 US Pelvis PELVIC US [facility] Anc Imaging Routine Pelvic pain in female Expected: 01/24/2024, Expires: 01/23/2025 [facility] Work Phone: Comment on above: Expected: 01/24/2024 , Expires: 01/23/2025 Start: 12-26-2023 CHLAMYDIA SCREENING (18-24) CHLAMYDIA SCREENING (18-24) [place] Start: 12-26-2023 GC (GONORRHEA) SCREE TACOS (18-24) GC (GONORRHEA) SCREENING (18-24) [place] Start: 12-26-2023 Screening for Chlamy rickey trachomatis Chlamydia Screening (18-) [place] Start: 10-04-2023 Behavioral Health Screening Behavioral Health Screening [place] Start: 10-04-2023 Depression Assessment Depression Ass essment [place] Start: 10-02-2023 CHLAMYDIA SCREENING (1824) CHLAMYDIA SCREENING (1824) [place] Start: 10-02-2023 GC (GONORRHEA) SCREE TACOS (18-24) GC (GONORRHEA) SCREENING (18-24) [place] Start: 07-23-2023 End: 10-22-2023 Protein/Creatinine [Mass Ratio] in Urine [facility] Work Phone: Comment on above: Expected: 07/23/2023 , Expires: 10/22/2023 Start: 07-17-2023 COVID-19 VACCINE (3 - Booster for Pfizer series) COVID-19 VACCINE (3 - Booster for Pfizer series) [place] Comment on above: Postponed from 10/17 (Declined at this time) Start: 07-17-2023 COVID-19 VACCINE (3 - Pfizer series) COVID-19 VACCINE (3 - Pfizer series) [place] Comment on above: Postponed from 10/17 (Declined at this time) Start: 07-17-2023 HEPATITIS C SCREENING HEPATITIS C [facility] Comment on above: Postponed from 12/06 (Declined at this time) Start: 07-17-2023 HIV SCREENING HIV SCREENING [facility] Comment on above: Postponed from 12/06 (Declined at this time) Start: 07-17-2023 Meningococcal B Vacc ine: Consider Based On Risk (1 of 2 - Patient Seeks Protection) Meningococcal B Vaccine: Consider Based On Risk (1 of 2 - Patient Seeks Protection) [place] Comment on above: Postponed from 12/06 (Declined at this time) Start: 07-17-2023 MENINGOCOCCAL B: Consider based on risk (1 of 2 - Patient Seeks Protection) MENINGOCOCCAL B: Consider based on risk (1 of 2 - Patient Seeks Protection) [place] Comment on above: Postponed from 12/06 (Declined at this time) Start: 07-17-2023 MENINGOCOCCAL B: Consider based on risk (1 of 2 - Risk Bexsero 2-dose series) MENINGOCOCCAL B: Consider based on risk (1 of 2 - Risk Bexsero 2-dose series) [place] Comment on above: Postponed from 12/06 (Declined at this time) Start: 07-16-2023 CHLAMYDIA SCREENING () CHLAMYDIA SCREENING () [place] Start: 07-16-2023 GC (GONORRHEA) SCREE TACOS () GC (GONORRHEA) SCREENING () [place] Start: 06-04-2023 Covid-19 Vaccine ( season) Covid-19 Vaccine ( season) [place] Start: 06-04-2023 Influenza vaccination INFLUENZA (#1) [place] Start: 05-21-2023 End: 07-21-2023 CBC W Auto Differential panel - Blood CBC + DIFF Lab Routine Encounter for supervision of normal first in third trimester Expected: 05/21/2023, Expires: 07/21/2023 [facility] Work Phone: Comment on above: Expected: 05/21/2023 , Expires: 07/21/2023 Start: 04-20-2023 End: 06-20-2023 GEST GLUC SCREEN, 1-HR, 50 GM, NON-FASTING [facility] Work Phone: Comment on above: Expected: 04/20/2023 , Expires: 06/20/2023 Start: 03-31-2023 Adult depression screening assessment DEPRESSION SCREENING [place] Start: 12-25-2022 End: 12-26-2023 NUCHAL TRANSLUCENCY WHI NUCHAL TRANSLUCENCY [facility] Anc Imaging Routine Encounter for supervision of normal first in first trimester Expected: 12/25/2022, Expires: 12/26/2023 [facility] Work Phone: Comment on above: Expected: 12/25/2022 , Expires: 12/26/2023 Start: 10-04-2022 DEPRESSION ASSESSMENT DEPRESSION ASS ESSMENT [place] Start: 06-04-2022 Influenza vaccination INFLUENZA (#1) [place] Start: 01-20-2022 COVID-19 VACCINE (3 - Booster for Pfizer series) COVID-19 VACCINE (3 - Booster for Pfizer series) [place] Start: 10-17-2021 COVID-19 VACCINE (3 - Booster for Pfizer series) COVID-19 VACCINE (3 - Booster for Pfizer series) [place] Start: 10-04-2021 DEPRESSION ASSESSMENT DEPRESSION ASS ESSMENT [place] Start: 2020 Anxiety Screening Anxiety Screening [place] Start: 2020 CHLAMYDIA SCREENING (18-24) CHLAMYDIA SCREENING (18-24) [place] Start: 2020 Depression Screening Depression Scre ening [place] Start: 2020 GC (GONORRHEA) SCREE TACOS (18-24) GC (GONORRHEA) SCREENING (18-24) [place] Start: 2020 HEPATITIS C SCREENING HEPATITIS C SC REENING [place] Start: 2020 HIV SCREENING HIV SCREENING [facility] Start: 2018 Meningococcal B Vacc ine: Consider Based On Risk (1 of 2 - Patient Seeks Protection) Meningococcal B Vaccine: Consider Based On Risk (1 of 2 - Patient Seeks Protection) [place] Start: 2016 PEDS TO ADULT TRANSI TION ANNUAL ASSESSMENT PEDS TO ADULT TRANSITION ANNUAL ASSESSMENT [place] Start: 2014 Adult depression screening assessment DEPRESSION SCREENING [place] Start: 2014 PEDS TO ADULT TRANSI TION INITIAL DISCUSSION PEDS TO ADULT TRANSITION INITIAL DISCUSSION [place] Start: 2012 MENINGOCOCCAL B: Consider based on risk (1 of 2 - Risk Bexsero 2-dose series) MENINGOCOCCAL B: Consider based on risk (1 of 2 - Risk Bexsero 2-dose series) [place] Bacteria identified in Urine by Culture URINE CULTURE Microbiology Routine Dysuria Ordered: 03/04/2022 [facility] Work Phone: Comment on above: Ordered: 03/04/2022 Bacteria identified in Urine by Culture URINE CULTURE Microbiology Routine UTI symptoms 11/23/2023 12:33 PM EST [facility] Work Phone: BACTERIAL VAGINOSIS AMPLIFICATION BACTERIAL VAGINOSIS AMPLIFICATION Lab Routine Vaginal discharge Vaginal odor 07/16/2022 4:38 PM EDT [facility] Work Phone: JOHN / TRICHOMONA S AMPLIFICATION JOHN / TRICHOMONAS AMPLIFICATION Microbiology Routine Vaginal discharge Vaginal odor 07/16/2022 4:38 PM EDT [facility] Work Phone: Chlamydia trachomatis+Neisseria gonorrhoeae DNA [Presence] in Unspecified specimen by TESS with probe detection GC/CHLAMYDIA DNA DET Lab Routine Vaginal discharge Vaginal odor 07/16/2022 4:38 PM EDT [facility] Work Phone: INDUCTION L&D INDUCTION L&D Procedures Routine Encounter for supervision of normal in third trimester, unspecified 1 Occurrences starting 07/23/2023 [facility] Work Phone: Comment on above: 1 Occurrences starti ng 07/23/2023 End: 06-17-2024 OXIMETRY AT REST OXIMETRY AT REST PFT Routine Sore throat 1 Occurrences starting 05/19/2023 until 06/17/2024 [facility] Work Phone: Comment on above: 1 Occurrences starti ng 05/19/2023 until 06/17/2024 PAP TEST PAP TEST Lab Ab hurley care and examination Cervical cancer screening Ordered: 09/14/2023 [facility] Work Phone: Comment on above: Ordered: 09/14/2023 POC [employer]ER ULTRASOUND 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 Anc Imaging Routine Encounter for supervision of normal first in first trimester Ordered: 12/25/2022 [facility] Work Phone: Comment on above: Ordered: 12/25/2022 End: 07-31-2023 Radex spine thoracic 3 views XR THORACIC GENERAL 3V AP/LAT/SWIMMERS Radiology Routine Chronic bilateral thoracic back pain 1 Occurrences starting 07/01/2022 until 07/31/2023 [facility] Work Phone: Comment on above: 1 Occurrences starti ng 07/01/2022 until 07/31/2023 ROUTINE, GR OUP B STREP PCR ROUTINE, GROUP B STREP PCR Microbiology Routine Encounter for supervision of normal in third trimester, unspecified 07/16/2023 4:14 PM EDT [facility] Work Phone: UA DIP B/O UA DIP B/O Lab R outine Dysuria Ordered: 03/04/2022 [facility] Work Phone: Comment on above: Ordered: 03/04/2022 [facility] Immunizations Immunization Date Immunization Notes Care Provider [facility] 06-25-2023 influenza, injectabl e, quadrivalent, contains preservative Elysia Collier MD Work Phone: [place] 06-25-2023 influenza virus vacc ine, unspecified formulation Linda Márquez SWEETBREAD TRIMMER.FOOD AND BEVERAGE SERVER Work Phone: [place] 05-21-2023 tetanus toxoid, redu garett diphtheria toxoid, and acellular pertussis vaccine, adsorbed Remi Powell MD Work Phone: [place] 07-17-2022 influenza, injectabl e, quadrivalent, contains preservative Hellen Paez MD Work Phone: [place] 08-22-2021 COVID-19 vaccine, ag e 12+ yr ([place]) Maegan Stinson SWEETBREAD TRIMMER.FOOD AND BEVERAGE SERVER Work Phone: [place] 07-03-2021 influenza, injectabl e, quadrivalent, contains preservative Maegan Stinson APRN.FOOD AND BEVERAGE SERVER Work Phone: [place] Work Phone: 06-18-2020 meningococcal polysaccharide (groups A, C, Y and W-135) diphtheria toxoid conjugate vaccine (MCV4P) Maegan Stinson APRN.FOOD AND BEVERAGE SERVER Work Phone: [place] Work Phone: 06-16-2018 Human Papillomavirus 9-valent vaccine Maegan Stinson APRN.[facility] Work Phone: [place] Work Phone: 06-14-2017 Human Papillomavirus 9-valent vaccine Maegan Stinson APRN.[facility] Work Phone: [place] Work Phone: 05-15-2015 meningococcal oligosaccharide (groups A, C, Y and W-135) diphtheria toxoid conjugate vaccine (MCV4O) Maegan Stinson APRN.[facility] Work Phone: [place] Work Phone: 05-15-2015 tetanus toxoid, redu garett diphtheria toxoid, and acellular pertussis vaccine, adsorbed Maegan Stinson APRN.[facility] Work Phone: [place] Work Phone: 06-26-2014 influenza virus vacc ine, live, attenuated, for intranasal use Maegan Stinson APRN.[facility] Work Phone: [place] Work Phone: 03-21-2012 hepatitis A vaccine, pediatric/adolescent dosage, 2 dose schedule Maegan Stinson APRN.[facility] Work Phone: [place] Work Phone: 07-28-2011 influenza virus vacc ine, live, attenuated, for intranasal use Maegan Stinson APRN.[facility] Work Phone: [place] Work Phone: 03-04-2011 hepatitis A vaccine, pediatric/adolescent dosage, 2 dose schedule Maegan Stinson APRN.[facility] Work Phone: [place] Work Phone: 07-15-2010 influenza virus vacc ine, live, attenuated, for intranasal use Maegan Stinson APRN.[facility] Work Phone: [place] Work Phone: 08-18-2008 influenza virus vacc ine, live, attenuated, for intranasal use Maegan Stinson APRN.FOOD AND BEVERAGE SERVER Work Phone: [place] Work Phone: 04-08-2007 diphtheria, tetanus toxoids and acellular pertussis vaccine, unspecified formulation Maegan Stinson APRN.FOOD AND BEVERAGE SERVER Work Phone: [place] Work Phone: 04-08-2007 measles, mumps and rubella virus vaccine Maegan Stinson APRN.FOOD AND BEVERAGE SERVER Work Phone: [place] Work Phone: 04-08-2007 poliovirus vaccine, unspecified formulation Maegan Stinson APRN.FOOD AND BEVERAGE SERVER Work Phone: [place] Work Phone: 04-08-2007 varicella virus vaccine Shannan Stinson APRN.[facility] Work Phone: [place] Work Phone: 06-19-2004 poliovirus vaccine, unspecified formulation Maegan Stinson APRN.FOOD AND BEVERAGE SERVER Work Phone: [place] Work Phone: 04-03-2004 diphtheria, tetanus toxoids and acellular pertussis vaccine, unspecified formulation Maegan Stinson APRN.FOOD AND BEVERAGE SERVER Work Phone: [place] Work Phone: 04-03-2004 haemophilus influenz ae type b vaccine, conjugate unspecified formulation Maegan Stinson APRN.FOOD AND BEVERAGE SERVER Work Phone: [place] Work Phone: 01-25-2004 measles, mumps and rubella virus vaccine Maegan Stinson APRN.FOOD AND BEVERAGE SERVER Work Phone: [place] Work Phone: 01-25-2004 varicella virus vaccine Shannan Stinson APRN.FOOD AND BEVERAGE SERVER Work Phone: [place] Work Phone: 10-18-2003 hepatitis B vaccine, pediatric or pediatric/adolescent dosage Maegan Stinson APRN.[facility] Work Phone: [place] Work Phone: 06-21-2003 diphtheria, tetanus toxoids and acellular pertussis vaccine, unspecified formulation Maegan Stinson APRN.[facility] Work Phone: [place] Work Phone: 06-21-2003 haemophilus influenz ae type b vaccine, conjugate unspecified formulation Maegan Stinson APRN.[facility] Work Phone: [place] Work Phone: 06-21-2003 pneumococcal conjuga te vaccine, 7 valent Maegan Stinson APRN.[facility] Work Phone: [place] Work Phone: 04-09-2003 diphtheria, tetanus toxoids and acellular pertussis vaccine, unspecified formulation Maegan Stinson APRN.[facility] Work Phone: [place] Work Phone: 04-09-2003 haemophilus influenz ae type b vaccine, conjugate unspecified formulation Maegan Stinson APRN.[facility] Work Phone: [place] Work Phone: 04-09-2003 pneumococcal conjuga te vaccine, 7 valent Maegan Stinson APRN.[facility] Work Phone: [place] Work Phone: 04-09-2003 poliovirus vaccine, inactivated Maegan Stinson APRN.FOOD AND BEVERAGE SERVER Work Phone: [place] Work Phone: 02-01-2003 diphtheria, tetanus toxoids and acellular pertussis vaccine, unspecified formulation Maegan Stinson APRN.[facility] Work Phone: [place] Work Phone: 02-01-2003 haemophilus influenz ae type b conjugate and Hepatitis B vaccine Maegan Stinson APRN.[facility] Work Phone: [place] Work Phone: 02-01-2003 pneumococcal conjuga te vaccine, 7 valent Maegan Stinson SWEETBREAD TRIMMER.FOOD AND BEVERAGE SERVER Work Phone: [place] Work Phone: 02-01-2003 poliovirus vaccine, inactivated Maegan Stinson SWEETBREAD TRIMMER.FOOD AND BEVERAGE SERVER Work Phone: [place] Work Phone: 2002 hepatitis B vaccine, pediatric or pediatric/adolescent dosage Maegan Stinson SWEETBREAD TRIMMER.FOOD AND BEVERAGE SERVER Work Phone: [place] Work Phone: Payers Date Payer Category Payer Unknown [id number] 2024 Self-pay 2022 Unknown [id number] 2022 Medicaid [id number] 2021 Private Health Insurance EHP AET NA EHP STAFF/NON STAFF / EHP [place] [id number] 2021-Present [address] [place] [address] EPO [id number] 2021 Private Health Insurance [id number] 2021 Medicaid [employer] [id number] 2021-Present [phone] [address] [place] [address] Medicaid [id number] 2021 Medicaid [id number]. [id number]. [id number] 2002 Unknown [id number] 2.16.840.1.418417.3.579.2. 479 Unknown [id number] Unknown [id number] 2.16840.1.968762.3.579.2. 462 Unknown [id number] 2.16.840.1.588341.3.579.2. 462 Unknown [id number] 2.16.840.1.159723.3.579.2. 462 Unknown [id number] 2.16.840.1.510212.3.579.2. 462 Unknown [id number] 2.16.840.1.701514.3.579.2. 462 Unknown [id number] 2..840.1.700915.3.579.2. 462 Unknown [id number] 2..840.1.835403.3.579.2. 462 Unknown [id number] 2.840.1.222547.3.579.2. 462 Unknown [id number] 2.840.1.087534.3.579.2. 462 Unknown [id number] 2.840.1.095294.3.579.2. 462 Unknown [id number] 2.840.1.740784.3.579.2. 462 Unknown [id number] 2..840.1.858136.3.579.2. 462 Unknown [id number] 2.840.1.875560.3.579.2. 462 Unknown [id number] 2.840.1.020354.3.579.2. 462 Unknown [id number] 2.840.1.820788.3.579.2. 462 Unknown [id number] 2.840.1.339332.3.579.2. 462 Unknown [id number] 2..840.1.602619.3.579.2. 462 Unknown [id number] 2..840.1.161951.3.579.2. 462 Unknown [id number] 2.16.840.1.956178.3.579.2. 462 Unknown [id number] 2.840.1.691587.3.579.2. 462 Unknown [id number] 2.16.840.1.079508.3.579.2. 462 Unknown [id number] 2.16.840.1.541864.3.579.2. 462 Unknown [id number] 2.16.840.1.282579.3.579.2. 462 Unknown [id number] 2.16.840.1.363375.3.579.2. 462 Unknown [id number] 2.16.840.1.259473.3.579.2. 462 Unknown [id number] 2.16.840.1.340088.3.579.2. 462 Unknown [id number] 2.16.840.1.438003.3.579.2. 462 Unknown [id number] 2.16.840.1.014872.3.579.2. 462 Unknown [id number] 2.16.840.1.198885.3.579.2. 462 Unknown [id number] 2.16.840.1.497683.3.579.2. 462 Social History Date Type Detail Facility Start: 12-30-2021 End: 05-21-2023 Tobacco smoking status NHIS Never smoked tobacco [place] Start: 12-30-2021 End: 05-21-2023 Tobacco use and exposure Smokeless tobacco non-user [place] Start: 12-30-2021 End: 01-24-2024 Alcohol intake Ex-drinker (finding) [place] Start: 2002 Sex Assigned At Female [facility] Start: 02-22-2022 End: 07-22-2022 Exposure to SARS-CoV-2 (event) Not sure [place] Start: 03-22-2022 End: 07-10-2022 History SDOH Alcohol Frequency 3 [place] Start: 03-22-2022 History SDOH Alcohol Std Drinks 1 [place] Start: 03-22-2022 End: 07-10-2022 History SDOH Social Connections Phone 2 [place] Start: 03-22-2022 History SDOH Social Connections Living 98 [place] Start: 03-22-2022 History SDOH Physica l Activity DPW 5 [place] Start: 04-10-2022 End: 04-16-2022 Alcohol intake Current drinker of alcohol (finding) [place] Start: 04-10-2022 History SDOH Alcohol Comment social [place] Start: 11-13-2022 [place] Start: 04-20-2023 End: 05-21-2023 History of Social function [place] Start: 04-20-2023 End: 05-21-2023 Tobacco use panel [place] Adult Depression Screening Assessment 4 [place] At any time in the past 12 months, were you homeless or living in prison [including now]? No [place] Start: 09-19-2021 Gender identity Identifies as female gender (finding) [place] Start: 09-19-2021 Sexual orientation Heterosexual (fin ding) [place] Are you now , , , , never or living with a partner? Refused [place] How hard is it for y ou to pay for the very basics like food, housing, medical care, and heating Somewhat hard [place] Do you feel stress - tense, restless, nervous, or anxious, or unable to sleep at night because your mind is troubled all the time - these days [OSQ] To some extent [place] (I/We) worried wheth er (my/our) food would run out before (I/we) got money to buy more. Never true [place] NEGATED: Highlighted rowStart: NINF History of tobacco use Passive smoker [place] Goals Date Patient Goal Desired Activity /State Personal health goal Clinical Notes 02-03-2022 to 02-22-2025 Elizabeth Robertson MD - 07/12/2024 10:34 AM Linda Pagan APRN.FOOD AND BEVERAGE SERVER - 07/11/2024 12:43 PM Bharathi Ness MD - 01/24/2024 3:25 PM Jeannine Garcia APRN.FOOD AND BEVERAGE SERVER - 11/23/2023 12:08 PM EST Note Date & Type Note Facility 02-22-2025 Note HNO ID: [id number] Author: MAGDA CARRANZA MA Service: ? Author Type: Plaster Machine Operator Type: Progress Notes Filed: 02/22/2025 14:37 Note Text: POPULATION HEALTH NAVIGATION OUTREACH Action/I Patient is on Off-boarding and needs appt to close gaps Care gaps/appts to address: Establish Care Outcomes: Spoke with patient: Patient confirmed PCP PCP field updated Reason for Outreach Attribution: Provider Off-boarding Care Gaps due: Establish Care Appointment Patient Contacted: Spoke to patient/parent/or legal guardian Patient identified by name and : Yes Attribution actions taken: PCP field updated Navigation Signature: Magda Carranza MA February 22, 2025 2:35 PM [facility] 02-22-2025 Note Patient Outreach (LIONEL TNAV) NATA QUEZADA ([id number]) 02 [facility] Date Time Provider Department 02/22/25 MAGDA CARRANZA During your visit today, we recorded the following information about you: Magda Carranza MA 02/22/2025 2:37 PM Signed POPULATION HEALTH NAVIGATION OUTREACH Action/ Patient is on Off-boarding and needs appt to close gaps Care gaps/appts to address: Establish Care Outcomes: Spoke with patient: Patient confirmed PCP PCP field updated Reason for Outreach Attribution: Provider Off-boarding Care Gaps due: Establish Care Appointment Patient Contacted: Spoke to patient/parent/or legal guardian Patient identified by name and : Yes Attribution actions taken: PCP field updated Navigation Signature: Magda Carranza MA February 22, 2025 2:35 PM Allergies As of Date: 02/22/2025 (No Known Allergies) Date Reviewed: 07/11/2024 Reviewed by: Aura Lowry LPN - Fully Assessed Reason for Visit: Population Health Navigation Outreach [3910] Cmt: Off-boarding Dr. Paez Prescriptions as of 02/22/2025 - copper (PARAGARD) 380 square mm intrauterine device 1 Intra Uterine Device by INTRAUTERINE route as directed. 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 Encounter Diagnosis ICD-10-CM 1. Pelvic pain in female R10.2 Please see report under imaging tab. 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 Encounter Diagnosis ICD-10-CM 1. Pelvic pain in female R10.2 Please see report under imaging tab. Elizabeth Robertson MD July 12, 2024 10:34 AM documented in this encounter [place] 07-11-2024 History of Presen t illness Narrative Joanne declined composition floor setter. Nata QUEZADA presents today for IUD check. She had a Paraguard placed on 10/01/2023. She has had pain since placement. Patient reported ultrasound 07/11/2024, reported unable to locate strings. REVIEW OF SYSTEMS: PAIN ASSESSMENT: Negative for pain, history of chronic pain, or current treatment for a chronic pain condition. SENSITIVE EXAM: The sensitive examination was discussed with the Patient or Patient's Authorized Elevator Tender. As applicable, any other physician, advance practice provider, medical student, or other health professional student that will be observing or involved in the sensitive examination for educational or training purposes was discussed with the Patient or Authorized Elevator Tender. The Patient or Authorized Elevator Tender has agreed to proceed with the sensitive examination. (Sensitive examination includes inspection and/or palpation of the breasts, pelvis, prostate and anorectal regions). PHYSICAL EXAMINATION: LMP 01/04/2024 ABDOMEN:soft, non-tender, no masses, no hepatosplenomegaly, and no lymphadenopathy EXTERNAL GENITALIA: Normal genitalia and Bartholins, Urethra, Sken'e normal CERVIX: smooth, no lesions. IUD strings visible. UTERUS: normal size ADNEXA: negative for tenderness or masses IMPRESSION/PLAN: IUD correctly positioned. Linda Márquez APRN.CNP Medical Decision Making: Problems: Low: Acute, uncomplicated illness or injury Risk: Low: Low risk from testing/treatment Medical Decision Making Level: 3 - Low documented in this encounter [place] 07-11-2024 Note HNO ID: [id number] Author: LINDA MÁRQUEZ APRN.CNP Service: ? Author Type: Nurse Practitioner Type: Progress Notes Filed: 07/11/2024 13:01 Note Text: Joanne declined composition floor setter. Nata QUEZADA presents today for IUD check. She had a Paraguard placed on 10/01/2023. She has had pain since placement. Patient reported ultrasound 07/11/2024, reported unable to locate strings. REVIEW OF SYSTEMS: PAIN ASSESSMENT: Negative for pain, history of chronic pain, or current treatment for a chronic pain condition. SENSITIVE EXAM: The sensitive examination was discussed with the Patient or Patient's Authorized Elevator Tender. As applicable, any other physician, advance practice provider, medical student, or other health professional student that will be observing or involved in the sensitive examination for educational or training purposes was discussed with the Patient or Authorized Elevator Tender. The Patient or Authorized Elevator Tender has agreed to proceed with the sensitive examination. (Sensitive examination includes inspection and/or palpation of the breasts, pelvis, prostate and anorectal regions). PHYSICAL EXAMINATION: LMP 01/04/2024 ABDOMEN:soft, non-tender, no masses, no hepatosplenomegaly, and no lymphadenopathy EXTERNAL GENITALIA: Normal genitalia and Bartholins, Urethra, Sken'e normal CERVIX: smooth, no lesions. IUD strings visible. UTERUS: normal size ADNEXA: negative for tenderness or masses IMPRESSION/PLAN: IUD correctly positioned. Linda Márquez, BRITTANY.FOOD AND BEVERAGE SERVER Medical Decision Making: Problems: Low: Acute, uncomplicated illness or injury Risk: Low: Low risk from testing/treatment Medical Decision Making Level: 3 - Low [facility] 01-24-2024 History of Presen t illness Narrative Animal Pathologist offered: Patient declines. Nata QUEZADA presents today for IUD check. She had a Paraguard placed on 10/01/2023. She has had heavy bleeding and pain since placement. Put in . Nata QUEZADA is a 23 year old female who presents for problem visit for IUD check. Notes when she places her fingers by her cervix she feels something hard so afraid IUD is falling down. pain w/ intercourse at times, sharp in vagina. Partner has felt like he felt something as well. LMP was heavy, has had monthly menses last 3-4 months. OB History T1 L1 SAB0 IAB0 Ectopic0 Multiple0 Live Births1 Revenue Accounting Manager History LMP: 01/04/2024 (Exact Date), IUD Age at Menarche: 15 Age at First : Age at Menopause: Revenue Accounting Manager History Comments: Sexual Activity: Not Currently; Male Contraception: Condom PAST MEDICAL HISTORY Diagnosis Date History of gestational hypertension 07/2023 late term 1st , IOL for this No pertinent past medical history UTI (urinary tract infection) PAST SURGICAL HISTORY Procedure Laterality Date EXTENSIVE JAW SURGERY ORTHOPEDICS SURGERY HX RECONSTRUCT CLEFT PALATE FAMILY HISTORY Problem Relation Age of Onset No Known Problems Mother No Known Problems Father No Known Problems Sister No Known Problems Brother No Known Problems Brother Social History Tobacco Use Smoking status: Never Passive exposure: Never Smokeless tobacco: Never Vaping Use Vaping Use: Never used Substance Use Topics Alcohol use: Not Currently Comment: social Drug use: Never Current Outpatient Medications Medication Sig copper (PARAGARD) 380 square mm intrauterine device 1 Intra Uterine Device by INTRAUTERINE route as directed. Vitamin w/ Iron ( VITAMIN PLUS LOW IRON) 27 mg iron- 1 mg Take 1 tablet by mouth once daily. No current facility-administered medications for this visit. Allergies As of Date: 01/24/2024 (No Known Allergies) Fully Assessed 01/24/2024 REVIEW OF SYSTEMS Abdomen: No bloating, early satiety, indigestion, or increased flatulence. No abdominal pain, nausea, vomiting, diarrhea, or constipation. Bladder: No dysuria, gross hematuria, urinary frequency, urinary urgency, or incontinence. Allergies and current medication updated:Yes EXAM: BP 110/70 Wt 131 lb 3.2 oz (59.5kg) LMP 01/04/2024 GENERAL: pleasant, female in no apparent distress HPELVIC: external genitalia normal, normal Bartholin's glands, urethra, [place]'s glands, no vulvar lesions, no cervical lesions, good vaginal support, physiologic discharge present, normal appearing perineal body and perianal region, IUD strings 1 cm long, no palpable IUD or visible> Nabothian cyst on cervix, no abnormalities noted BIMANUAL: uterus normal size, shape and consistency, no adnexal masses, and non-tender ASSESSMENT AND PLAN: Encounter Diagnosis ICD-10-CM 1. Pelvic pain in female R10.2 PELVIC US WHI aub, IUD check IUD in place on exam, reassured IUD not expelling, check US for location> D/w her bleeding after IUD insertion can be irreg for se veral months. trial doxy and return after US to discuss option> May elect to change to mirena. Bharathi Estrada MD documented in this encounter [place] 11-23-2023 History of Presen t illness Narrative Images from the original note were not included. Patient Name: Nata Penaloza PCP: Hellen Paez MD Chief Complaint: Patient presents with: UTI: Pt states she has been having UTI symptoms started x 2 days ago. Pt states she has severe abdominal pain, burning after she pees and the urge to pee. History of Present Condition: Nata Penaloza is a 22 year old female who presents to [facility] walk in clinic for the following: Starting 2 days ago, patient developed: + dysuria + urinary frequency, feels like she doesn't empty bladder all the way + urinary urgency + lower abdominal cramping pain -- Always there to some degree, but varying in intensity Denies fever, chills, hematuria, nausea, vomiting, flank pain. Denies vaginal itching, rash, abnormal discharge, malodor. Some vaginal red-brown spotting following intercourse in the last 2-3 days. Denies dyspareunia. LMP 11/04/23 ACTIVE PROBLEM LIST Malnutrition of Mild Degree (Hcc) Cyclothymia Gestational Hypertension Gestational Hypertension, Third Trimester Routine Follow-Up Hypertension Complicating , Delivered-Current Hospitalization ALLERGIES No Known Allergies Current Outpatient Medications Medication Sig cephALEXin (KEFLEX) 500 mg capsule Take 1 capsule by mouth two times a day for 7 days. copper (PARAGARD) 380 square mm intrauterine device 1 Intra Uterine Device by INTRAUTERINE route as directed. Vitamin w/ Iron ( VITAMIN PLUS LOW IRON) 27 mg iron- 1 mg Take 1 tablet by mouth once daily. No current facility-administered medications for this visit. ROS Negative in detail x 4 systems except as noted above. 11/23/23 1202 BP: 116/79 Pulse: 69 Temp: 36.6 C (97.8 F) Physical Exam Constitutional: General: She is not in acute distress. Appearance: She is not ill-appearing, toxic-appearing or diaphoretic. Cardiovascular: Rate and Rhythm: Normal rate and regular rhythm. Heart sounds: Normal heart sounds. Pulmonary: Effort: Pulmonary effort is normal. No respiratory distress. Breath sounds: No wheezing, rhonchi or rales. Chest: Chest wall: No tenderness. Abdominal: General: Abdomen is flat. Bowel sounds are normal. There is no distension. Palpations: Abdomen is soft. Tenderness: There is abdominal tenderness (Suprapubic area). There is no right CVA tenderness, left CVA tenderness, guarding or rebound. Musculoskeletal: Right lower leg: No edema. Left lower leg: No edema. Skin: General: Skin is warm and dry. Neurological: Mental Status: She is alert and oriented to person, place, and time. Psychiatric: Mood and Affect: Mood normal. Behavior: Behavior normal. Component Latest Ref Rng & Units 11/23/2023 GLUCOSE UA (POCT) Negative mg/dL Negative BILIRUBIN UA (POCT) Negative Small (A) KETONE UA (POCT) Negative mg/dL Negative SPECIFIC GRAVITY UA (POCT) 1.005 - 1.030 >=1.030 HEMOGLOBIN/BLOOD UA (POCT) Negative Moderate (A) PH UA (POCT) 4.5 - 8.0 6.0 PROTEIN UA (POCT) Negative mg/dL 30 (A) UROBILINOGEN UA (POCT) Normal E.U./dL 0.2 NITRITE UA (POCT) Negative Positive (A) LEUKOCYTES UA (POCT) Negative Negative COLOR UA (POCT) Yellow CLARITY UA (POCT) Clear Assessment/Plan: Nata Penaloza is a 22 year old female who presents to [facility] walk in clinic for UTI Sx that began 2 days ago. 1. Acute cystitis with hematuria - ICD9: 595.0, ICD10: N30.01 (primary diagnosis) 2. UTI symptoms - ICD9: 788.99, ICD10: R39.9 Patient in NAD and VSS. She endorses cramping lower abd pain but denies red flag Sx. UA dip in office suspicious for UTI. Will initiate treatment with Cephalexin 500mg BID x 7 days (which should be safe as she is currently ). Will send urine for culture and adjust treatment if necessary. Red flag Sx reviewed that would warrant ER visit or RTC. - CEPHALEXIN 500 MG CAPSULE - UA DIP, URINE (POC) - URINE CULTURE Recommended follow up if not better with treatment in 5-7 days. Reviewed ER and clinic f/u instructions. Pt acknowledged understanding. Reviewed diagnosis above. Call for new problems or concerns. Orders as noted. Return if symptoms worsen or fail to improve. Signed: Jeannine Merrill APRN.CNP [facility] I spent a total of 25 minutes on the date of the service which included preparing to see the patient, [id number] patient care, completing clinical documentation, obtaining and/or reviewing separately obtained history, performing a medically appropriate examination, counseling and educating the patient/family/caregiver, and ordering medications, tests, or procedures. documented in this encounter [place] 09-14-2023 Miscellaneous Notes Addended by: REMI POWELL on: 09/14/2023 03:28 PM Modules accepted: Orders documented in this encounter [place] 09-14-2023 History of Presen t illness Narrative VISIT Nata ePnaloza is a 22 year old year old here for visit. Delivery Summary: Yaz, Oseas Kramer [[id number]] Delivery Information: Delivery Date: 07/28/23 Delivery type: Vaginal, Spontaneous Delivering Clinician: Yodit Fuchs MD Vacuum Used: No Forceps Used: No Shoulder Dystocia Present: No Lacerations: 1st Episiotomy: None : Gender: Male Weight (grams): 2772 g One Minute : 9 Five Minute : 9 ROS/ Recovery: Feeding: Breast and bottle feeding problems: None Menses since delivery: none Menstrual pattern prior to : Regular periods Long since delivery: Resumed Depression: denies symptoms of depression. OB Depression and Anxiety Screening- This Encounter (since 09/13/2023) None Emotional support: Yes Bowel symptoms: Negative for abdominal discomfort, blood in stools or black stools and change in bowel habits Abdomen: N/A Bladder symptoms: No dysuria, gross hematuria, urinary frequency, urinary urgency, or incontinence Other issues: None Last Pap: first pap today PAST MEDICAL HISTORY Diagnosis Date History of gestational hypertension 07/2023 late term 1st , IOL for this No pertinent past medical history UTI (urinary tract infection) PAST SURGICAL HISTORY Procedure Laterality Date EXTENSIVE JAW SURGERY ORTHOPEDICS SURGERY HX RECONSTRUCT CLEFT PALATE FAMILY HISTORY Problem Relation Age of Onset No Known Problems Mother No Known Problems Father No Known Problems Sister No Known Problems Brother No Known Problems Brother Social History Tobacco Use Smoking status: Never Passive exposure: Never Smokeless tobacco: Never Vaping Use Vaping Use: Never used Substance Use Topics Alcohol use: Not Currently Comment: social Drug use: Never PHYSICAL EXAMINATION: LMP 10/30/2022 GENERAL: pleasant, female in no apparent distress HEENT: Normocephalic, atraumatic, mucus membranes moist, and no lesions NECK: Supple, full range of motion, no adenopathy, and thyroid normal DERMATOLOGY: Normal, without lesions, non-icteric, and non-hirsute BREAST: soft, non-tender, symmetric, no dominant mass, normal nipple-areolar complex, no lymphadenopathy, and no nipple discharge CHEST: Normal inspiratory effort ABDOMEN: soft, non-tender, and no masses. INCISION: N/A PELVIC: external genitalia normal, normal Bartholin's glands, urethra, [place]'s glands, no vulvar lesions, no cervical lesions, good vaginal support, physiologic discharge present, normal appearing perineal body and perianal region BIMANUAL: uterus normal size, shape and consistency, no adnexal masses, and non-tender NEURO: alert and oriented x3,exam grossly non-focal EXTREMITIES: normal ASSESSMENT AND PLAN: 22 year old status post with normal course. Contraception plan: IUD - Paraguard Follow up: RTC for insertion of IUD Remi Powell MD documented in this encounter [place] 08-20-2023 Miscellaneous Notes Summary: call back OB Post Discharge Patient Call Back: Date: 08/20/2023 Patient Name: Nata Penaloza : 2000 Delivery Summary: Oseas Quezada [[id number]] Delivery Information: Delivery Date: 07/28/23 Delivery type: Vaginal, Spontaneous Delivering Clinician: Yodit Fuchs MD Vacuum Used: No Forceps Used: No Shoulder Dystocia Present: No Lacerations: 1st Episiotomy: None [place]: Gender: Male Weight (grams): 2772 g One Minute : 9 Five Minute : 9 Patient was contacted after her inpatient discharge from [facility]. She reported the following as it relates to her recovery and hospital experience: General Physical: We discussed how she was doing physically. She reported the following: Bleeding: mild Pain: no Other Signs or Symptoms: No Overall Mood: Patient was informed that Baby Blues are feelings of sadness that a woman may experience in the first few days after having a baby. Baby Blues can happen 2-3 days after delivery and can last up to two weeks. These feelings usually go away on their own and does not require treatment. Tell your doctor if you have sad feelings that last longer than two weeks. He/she may want to check you for a more serious condition called Post Depression (PPD). This can occur as early as one week and up to one year after giving . PPD warning signs include: Thinking of hurting yourself of your baby Feeling out of control, unable to care for self or baby Feeling depressed or sad most of the day every day Having trouble sleeping or sleeping too much Having trouble bonding with your baby Safe Sleep: I reviewed safe sleep environments for infants and the ABC's (alone back crib) for sleeping with the patient. She reported the following. The infant(s) sleeps in: Bassinet Baby in need of a crib/[id number]: No Baby's feeding: Method: Human milk only. Breast Feeding Problems: Per Nata, no problems BF but is also starting to pump and feed the EBM back to baby via bottle. Frequency: Within Normal Limits Education: N/A Baby's elimination habits: Average wet diapers: Within Normal Limits Average dirty diapers: Within Normal Limits Education: N/A Follow-up appointments: Scheduled appointment with a manager quality compliance: Has seen Scheduled a follow up appointment with OB provider: Has seen Suggestions/Concerns: Things that could have been done better during your stay: N/A Current concerns: N/A Referral(s): Patient referred to: Nata was given the department's phone number as she stated that she did not have it incase she may need it in the future. Adilia Kirkpatrick RN documented in this encounter [place] 08-19-2023 Instructions Elysia Collier MD - 08/19/2023 11:16 AM EST LONG ACTING REVERSIBLE CONTRACEPTION (LARC) LARC (long acting reversible contraception) methods include the intrauterine devices (IUDs) and control implant (Nexplanon). These are highly effective in preventing and can last several years depending on the method chosen. They are easy to use as nothing needs to be done once they are placed and they are also easy to remove when desired. They can be placed immediately after you have a baby or at your follow up visit. These methods are very effective, with less than 1 in 100 women who use it becoming (less than 1%). This rate is in the same range as permanent sterilization. These methods are 20 times more effective than the pill, patch, shot or ring. Most women can use the IUD or implant. Your physician can discuss if these methods will work for you. IUDS An IUD is a plastic, T shaped device that is placed into the uterus. It works by preventing fertilization of the sperm and egg. The hormonal IUD also thickens the cervical mucus which makes it harder for sperm to travel and thins out the lining of the uterus to prevent implantation. There are two types: The hormonal IUD releases some progestin hormone into the uterus and are approved for 3-6 years depending on the one chosen The copper IUD does not have any hormone and is approved for 10 years. Possible side effects of the IUD are some cramping and bleeding that will decrease within the first year. The hormonal IUD will lead to decreased bleeding or no period over time, which is safe. Some infrequent side effects of the hormonal IUDs can be headaches, nausea, depression, breast tenderness. Most of these symptoms resolve with time. The benefits of the IUD: Once placed, you do not have to do anything further It can be inserted immediately after a vaginal or delivery or at your visit The hormonal IUD can decrease menstrual pain and bleeding All IUDs are safe with It can be easily removed at any time and there is no delay in attempting future pregnancies. The risks of the IUD: Uterine perforation, which means the IUD can oconnor through the wall of the uterus. This is rare and occurs in 1 out of 1000 procedures. The uterus may expel the IUD. This can occur in 5% of cases in the first year, but up to 10-20% if placed immediately . PID (pelvic inflammatory disease) is an infection of the uterus and fallopian tubes. It is rare and occurs in less than 1 in 100 women. Increased risk of an ectopic ( not in the uterus) if occurs, which is low. NEXPLANON (The implant) Nexplanon is a single flexible rode that is inserted under the skin in the upper arm. It releases the hormone progestin to prevent . It is effective for up to 3 years. This hormone prevents ovulation which prevents . Possible side effects are unpredictable bleeding, which generally improves with time. Some individuals may notice mood changes, headaches, and acne. The benefits of the melody are: Once it is placed, you do not have to do anything for up to 3 years It can be easily removed if desired It is safe with It can be placed while you are in the hospital or at your visit The potential risks are: Difficulty removing the implant which can occur in less than 2% of women. If a woman becomes with the melody in place, which is rare, there is a slightly higher risk of an ectopic Most insurances will cover the implant and the IUD and your women s health provider can help you find that out. REFERENCES Immediate Long-Acting Reversible Contraception. Committee Opinion No. 670, May 2016. [employer] [place] [employer] Gonsalo RA, Jyothi J, Dony AL, Renetta YOU, Juan Barbour, Lauryn FIGUEROA. Contraceptive Technology. 20th rev. ed. [place]: [employer]; 2010 Yeny SE, Roshni DK, Aelxei G, Greg PA, Cory M, Perry KP. Lactogenesis after early use of the contraceptive implant: a randomized controlled trial. Obstetrics & Gynecolog 2011;117:1114-21 Belen AriasD, Yinka ER, Guzman AM, Tobi JM, Peter T, Krystina EF. Insertion of Levonorgestrel-intrauterine system at three time periods:a prospective randomized mapping pilot study. Contraception 2011;84:244-8. Patty VARGAS, Amena M, Ernesto JL, Stepan HL, Denilson VAUGHN, Aldo ÁLVAREZ. Postplacental or delayed insertion of the levonorgestrel intrauterine device after vaginal delivery: a randomized controlled trial. Obstetrics & Gynecology 2010;116:1079-87. Up to Date: Intrauterine Contraception: Devices, Candidates and Selection, updated 04/02/17. Up to Date: Etonorgestrel Contraceptive Implant, updated 08/07/16 documented in this encounter [place] 08-19-2023 History of Presen t illness Narrative EARLY VISIT Nata Penaloza is a 22 year old here for 3 week visit. Animal Pathologist offered: Patient declines. Delivery Summary: Oseas Quezada [[id number]] Delivery Information: Delivery Date: 07/28/23 Delivery type: Vaginal, Spontaneous Delivering Clinician: Yodit Fuchs MD Vacuum Used: No Forceps Used: No Shoulder Dystocia Present: No Lacerations: 1st Episiotomy: None [place]: Gender: Male Weight (grams): 2772 g One Minute : 9 Five Minute : 9 ROS: General: Denies any fever or chills Hypertension Screening: Headache? No. Visual Changes? No Epigastric Pain? No Increased Swelling? No Taking any BP medications at home? No If applicable, monitoring BP at home? (If Yes, include results) NA Mood: normal Depression: denies symptoms of depression. OB Depression and Anxiety Screening- This Encounter (since 08/18/2023) Over the past 2 weeks have you felt down, depressed, or hopeless? Negative Over the past two weeks, have you felt little interest or pleasure in doing things? Negative Feeling nervous, anxious or on edge 0-Not at all Not being able to stop or control worrying 0-Not al all Anxiety Pre-Screening Total (If >/= 3 additional questions will be reviewed) 0 Feeding: Breast feeding problems: None Bladder: habits returning to normal for pateint Bowel symptoms: habits returning to normal for pateint Abdomen: N/A Bleeding: light flow Bottom and Perineum: No issues Sleep: no sleep concerns and sleeps in bassinet/crib in parent's room, feels rested Long since delivery: Not resumed Emotional support: Yes PHYSICAL EXAMINATION: BP 128/62 Resp 18 Wt 143 lb 15.4 oz (65.3 kg) LMP 10/30/2022 (Exact Date) Yes BMI 24.71 kg/m General: pleasant,female in no apparent distress, A&O x 3. Skin warm and intact. Breast: Deferred Abdomen: Deferred /Incision: N/A Pelvic: Deferred Bimanual: Deferred ASSESSMENT AND PLAN: 22 year old status post with normal course. Contraception plan: IUD- not really sure which one, info provided Reinforced 6-week pelvic rest. Encouraged condom usage should patient deviate. Follow up: Return to Clinic for 6 week visit and as needed Elysia Collier MD documented in this encounter [place] 08-04-2023 History of Presen t illness Narrative BP 128/78 manual, 138/90 by home electronic cuff. Report to Dr. Collier who reviewed patient's [email or web address] message with reported pressures from home. No new orders at this time. Patient to continue taking and recording home pressures and report them on Wednesday before lunch, to call or go in to triage for >150/>105. Patient verbalizes understanding and agreement with POC. Rajni Parmar RN documented in this encounter [place] 07-30-2023 Note HNO ID: [id number] Author: Jenni Brady CPhT Service: Pharmacy Author Type: Clay Thrower Type: Plan of Care Filed: 07/30/2023 11:20 AM Note Text: PHARMACY BEDSIDE DELIVERY SERVICE Patient Name: Nata Penaloza The marked outpatient medications were Filled at: [facility] and delivered to the patient's bedside to patient Medication List START taking these medications acetaminophen 500 mg tablet Commonly known as: TYLENOL Take 2 tablets by mouth every 6 hours as needed for pain. * Blood Pressure Monitor 1 Each two times a day. * Blood Pressure Monitor Use as directed ibuprofen 600 mg tablet Commonly known as: MOTRIN Take 1 tablet by mouth every 6 hours as needed for pain. * This list has 2 medication(s) that are the same as other medications prescribed for you. Read the directions carefully, and ask your doctor or other care provider to review them with you. CONTINUE taking these medications calcium carbonate 500 mg Chew Commonly known as: TUMS Take 1 AND 1/2 tablets by mouth three times daily. calcium carbonate-vitamin D3 1,000 mg-20 mcg (800 unit) Tab Take 1 tablet by mouth once daily. famotidine 20 mg tablet Commonly known as: PEPCID Take 1 tablet by mouth once daily. FeroSuL 325 mg (65 mg iron) tablet Generic drug: ferrous sulfate Take 1 tablet by mouth daily at bedtime. Fish OiL 1,200 (144-216) mg capsule Generic drug: omega-3 DHA-EPA Take 1 capsule by mouth daily with breakfast. VITAMIN PLUS LOW IRON 27 mg iron- 1 mg Generic drug: Vitamin w/ Iron Take 1 tablet by mouth once daily. You might also be taking other medications not listed above. If you have questions about any of your other medications, talk to the person who prescribed them or your Primary Care Provider. Jenni Brady [facility] PAGER: Jenni Brady [phone] 07/30/23 11:20 AM July 30, 2023 11:19 AM [facility] 07-30-2023 Note HNO ID: [id number] Author: Delaney Durand APRN.CN Service: Obstetrics Author Type: [employer] Equipment Erector Type: Progress Notes Filed: 07/30/2023 7:26 AM Note Text: OBSTETRICS PROGRESS NOTE SERVICE DATE: July 30, 2023 SERVICE TIME: 724 ASSESSMENT: 22 year old female who is Day #2 status post Vaginal, Spontaneous delivery with male . Doing well. Reviewed GHTN and follow up. No complaints or concerns. All questions addressed PLAN: Routine care. Encourage patient to use pain meds. . Control: Undecided Discharge instructions given to patient regarding pelvic rest, bathing, stairs, walking, lifting, driving, and follow-up. Patient expresses understanding. Plan of care discussed with: Provider, RN, Patient. Anticipate discharge day: PPD #2 SUBJECTIVE: Patient has no current complaints. Tolerating PO intake. Urinating without difficulty. Passing flatus. Pain well controlled with current regimen. Lochia decreasing. Ambulating without difficulty. OBJECTIVE: PHYSICAL EXAM: Heart: RR Lungs: clear to auscultation Breasts: Nipples intact Abdomen: Soft Fundus firm below umbilicus Non-distended Perineum: healing Extremities: No calf tenderness and Edema equal bilaterally LAST VITALS: Pulse BP Resp O2 Sat Temp Pain 67 132/83 18 100 % 36.4 ?C (97.5 ?F) 0 Avg Min Max Vitals (last 12 hours) Flowsheet Row Name Average Min Max BP: Systolic 132 132 132 BP: Diastolic 83 83 83 Temp 36.4 ?C (97.5 ?F) 36.4 ?C (97.5 ?F) 36.4 ?C (97.5 ?F) Pulse 67 67 67 Resp 18 18 18 SpO2 100 % 100 % 100 % HT/WT/BMI: Height Weight BMI 162.6 cm (5' 4") 73.9 kg (163 lb) 27.98 LABS ABO/RH: 07/27/2023: B; Positive RUBELLA: 12/25/2022: Positive HANDH: Hematocrit (%) Date Value 07/27/2023 39.6 Hemoglobin (g/dL) Date Value 07/27/2023 13.8 Diagnostic tests reviewed for today's visit: Most recent labs SIGNATURE: Delaney Baer APRN.CNM PATIENT NAME: Nata Penaloza DATE: July 30, 2023 TIME: 7:25 AM [facility] 07-30-2023 Note HNO ID: [id number] Author: An Azevedo MD Service: Obstetrics Author Type: Resident Type: Progress Notes Filed: 07/30/2023 6:28 AM Note Text: OBSTETRICS PROGRESS NOTE SERVICE DATE: July 30, 2023 SERVICE TIME: 6:27 AM ASSESSMENT: 22 year old female who is Day #2 status post Vaginal, Spontaneous delivery with male . PLAN: Active Hospital Problems Diagnosis Date Noted Gestational hypertension, third trimester 07/27/2023 Overview Note: - Met criteria in the office - Asymptomatic - MR on admission - CBC, CMP unremarkable - One mild range bp since delivery, denies symptoms of preeclampsia Routine follow-up 07/28/2023 Overview Note: - Routine care, meeting milestones - Pain is well controlled with current regimen - Lochia appropriate - Hgb: 13.8 - Rh positive - Rubella immune - Breast feeding - PPBC: declines until 6 week visit - Male , desires circ - Disposition per attending physician - Anticipate discharge to home on PPD#2 Plan of care discussed with: Provider, RN, Patient. Anticipate discharge day: PPD #2 SUBJECTIVE: Patient has no current complaints. Tolerating PO intake. Urinating without difficulty. Passing flatus. Pain well controlled with current regimen. Lochia decreasing. Ambulating without difficulty. Denies headache, shortness of breath, RUQ pain, new onset edema. OBJECTIVE: PHYSICAL EXAM: Heart: RR Lungs: Comfortable on room air Abdomen: Soft Fundus firm below umbilicus Non-distended Extremities: No edema LAST VITALS: Pulse BP Resp O2 Sat Temp Pain 67 132/83 18 100 % 36.4 ?C (97.5 ?F) 0 Avg Min Max Vitals (last 12 hours) Flowsheet Row Name Average Min Max BP: Systolic 131.50 131 132 BP: Diastolic 85.50 83 88 Temp 36.5 ?C (97.7 ?F) 36.4 ?C (97.5 ?F) 36.6 ?C (97.9 ?F) Pulse 68 67 69 Resp 18 18 18 SpO2 99.5 % 99 % 100 % HT/WT/BMI: Height Weight BMI 162.6 cm (5' 4") 73.9 kg (163 lb) 27.98 LABS ABO/RH: 07/27/2023: B; Positive RUBELLA: 12/25/2022: Positive HANDH: Hematocrit (%) Date Value 07/27/2023 39.6 Hemoglobin (g/dL) Date Value 07/27/2023 13.8 Diagnostic tests reviewed for today's visit: Most recent labs and imaging results. SIGNATURE: An Azevedo MD PATIENT NAME: Nata Penaloza DATE: July 30, 2023 TIME: 6:26 AM [facility] 07-29-2023 Note HNO ID: [id number] Author: Delaney Durand APRN.CNM Service: Obstetrics Author Type: Structural Steel Equipment Erector Type: Progress Notes Filed: 07/29/2023 7:37 AM Note Text: OBSTETRICS PROGRESS NOTE SERVICE DATE: July 29, 2023 SERVICE TIME: 724 ASSESSMENT: 22 year old female who is Day #1 status post Vaginal, Spontaneous delivery with male . Doing well but tired. Breast feeding. Would like breast pump rx PLAN: Routine care. Encourage patient to use pain meds. . Control: Undecided Discharge instructions given to patient regarding pelvic rest, bathing, stairs, walking, lifting, driving, and follow-up. Patient expresses understanding. Plan of care discussed with: Provider, RN, Patient. Anticipate discharge day: PPD #2 SUBJECTIVE: Patient has no current complaints. Tolerating PO intake. Urinating without difficulty. Passing flatus. Pain well controlled with current regimen. Lochia decreasing. Ambulating without difficulty. OBJECTIVE: PHYSICAL EXAM: Heart: RR Lungs: clear to auscultation Breasts: Nipples intact Abdomen: Soft Fundus firm below umbilicus Non-distended Perineum: healing Extremities: No calf tenderness and Edema equal bilaterally LAST VITALS: Pulse BP Resp O2 Sat Temp Pain 98 136/90 18 98 % 36.6 ?C (97.9 ?F) 4 Avg Min Max Vitals (last 12 hours) Flowsheet Row Name Average Min Max BP: Systolic 139.50 136 143 BP: Diastolic 88.50 87 90 Temp 36.6 ?C (97.8 ?F) 36.5 ?C (97.7 ?F) 36.6 ?C (97.9 ?F) Pulse 92 86 98 Resp 17 16 18 SpO2 98 % 98 % 98 % HT/WT/BMI: Height Weight BMI 162.6 cm (5' 4") 73.9 kg (163 lb) 27.98 LABS ABO/RH: 07/27/2023: B; Positive RUBELLA: 12/25/2022: Positive HANDH: Hematocrit (%) Date Value 07/27/2023 39.6 Hemoglobin (g/dL) Date Value 07/27/2023 13.8 Diagnostic tests reviewed for today's visit: Most recent labs SIGNATURE: Delaney Baer APRN.CNM PATIENT NAME: Nata Penaloza DATE: July 29, 2023 TIME: 7:22 AM [facility] 07-29-2023 Miscellaneous Notes Please schedule a one week BP check. Thanks Delaney Baer APRN.CNM documented in this encounter [place] 07-29-2023 Note HNO ID: [id number] Author: An Azevedo MD Service: Obstetrics Author Type: Resident Type: Progress Notes Filed: 07/29/2023 6:37 AM Note Text: OBSTETRICS PROGRESS NOTE SERVICE DATE: July 29, 2023 SERVICE TIME: 6:09 AM ASSESSMENT: 22 year old female who is Day #1 status post Vaginal, Spontaneous delivery with male . PLAN: Active Hospital Problems Diagnosis Date Noted Gestational hypertension, third trimester 07/27/2023 Overview Note: - Met criteria in the office - Asymptomatic - MR on admission - CBC, CMP unremarkable - One mild range bp since delivery, denies symptoms of preeclampsia state 07/28/2023 Overview Note: - Routine care, meeting milestones - Pain is well controlled with current regimen - Lochia appropriate - Hgb: 13.8 - Rh positive - Rubella immune - Breast feeding - PPBC: declines until 6 week visit - Male infant, desires circ - Disposition per attending physician - Anticipate discharge to home on PPD#2 Plan of care discussed with: Provider, RN, Patient. Anticipate discharge day: PPD #1 SUBJECTIVE: Patient has no current complaints. Tolerating PO intake. Urinating without difficulty. Passing flatus. Pain well controlled with current regimen. Lochia decreasing. Ambulating without difficulty. Denies RUQ pain, chest pain, SOB, headache, vision changes, new onset edema. OBJECTIVE: PHYSICAL EXAM: Heart: RR Lungs: Comfortable on room air Abdomen: Soft Fundus firm below umbilicus Non-distended Extremities: No edema LAST VITALS: Pulse BP Resp O2 Sat Temp Pain 98 136/90 18 98 % 36.6 ?C (97.9 ?F) 4 Avg Min Max Vitals (last 12 hours) Flowsheet Row Name Average Min Max BP: Systolic 139.50 136 143 BP: Diastolic 88.50 87 90 Temp 36.6 ?C (97.8 ?F) 36.5 ?C (97.7 ?F) 36.6 ?C (97.9 ?F) Pulse 92 86 98 Resp 17 16 18 SpO2 98 % 98 % 98 % HT/WT/BMI: Height Weight BMI 162.6 cm (5' 4") 73.9 kg (163 lb) 27.98 LABS ABO/RH: 07/27/2023: B; Positive RUBELLA: 12/25/2022: Positive HANDH: Hematocrit (%) Date Value 07/27/2023 39.6 Hemoglobin (g/dL) Date Value 07/27/2023 13.8 Diagnostic tests reviewed for today's visit: Most recent labs and imaging results. SIGNATURE: An Azevedo MD PATIENT NAME: Nata Penaloza DATE: July 29, 2023 TIME: 6:09 AM [facility] 07-28-2023 Note HNO ID: [id number] Author: Carie Botello DO Service: Obstetrics Author Type: Resident Type: Progress Notes Filed: 07/28/2023 8:01 AM Note Text: Patient pushing. Dr. Fuchs in house. SIGNATURE: Carie Botello DO PATIENT NAME: Nata Penaloza DATE: 07/28/2023 TIME: 8:01 AM PAGER/CONTACT #: [phone] [facility] 07-28-2023 Note HNO ID: [id number] Author: Ada Baird MD Service: Obstetrics Author Type: Physician Type: Progress Notes Filed: 07/28/2023 7:38 AM Note Text: Attending Staff Note: Responded to 6 min prlonged decel to 90's after runn of >5 contractions in 10 minutes. Pitocin D/C'd. Positional change. BP 143/93 Pulse (!) 137 Temp 36.5 ?C (97.7 ?F) (Temporal) Resp 16 Ht 162.6 cm (5' 4") Wt 73.9 kg (163 lb) LMP 10/30/2022 (Exact Date) SpO2 98% BMI 27.98 kg/m? 07/28/23 0143 07/28/23 0443 07/28/23 0605 07/28/23 0715 Dilation: 5 5 5.5 10 Effacement (%): 70 70 70 100 Station: -2 -2 -1 2 MONITORING/ASSESSMENT: Baseline: 130 bpm (07/28/23 0700 : Ashlyn Palmer RN) Variability: Moderate (6-25 bpm) (07/28/23 0700 : Ashlyn Palmer RN) Accelerations: Absent (07/28/23 0700 : Ashlyn Palmer RN) Decelerations: Decelerations: (!) Variable (07/28/23 0700 : Ashlyn Palmer RN), Decel Frequency: Intermittent (07/28/23 0700 : Ashlyn Palmer RN) Contractions: Regular (07/28/23 0700 : Ashlyn Palmer RN) Frequency: q2 (07/28/23 0700 : Ashlyn Palmer RN) A/p: Prolonged decel related to uterine activity and complete dilation -Dr. Fuchs called after tracing stabilized. On her way in. Ada Baird MD :38 AM Ada Baird MD :35 AM [facility] 07-28-2023 Note HNO ID: [id number] Author: Radha Bran DO Service: Obstetrics Author Type: Resident Type: Progress Notes Filed: 07/28/2023 6:15 AM Note Text: OB Labor Progress Note Service Date: July 28, 2023 Service Time: 6:14 AM S: Nata is doing well, comfortable with epidural. O: Vitals: BP 123/75 Pulse 63 Temp 36.5 ?C (97.7 ?F) (Temporal) Resp 16 Ht 162.6 cm (5' 4") Wt 73.9 kg (163 lb) LMP 10/30/2022 (Exact Date) SpO2 98% BMI 27.98 kg/m? CERVICAL EXAM: Dilation: 5.5 (07/28/23604 : Darling Rust DO) Effacement (%): 70 (07/28/23604 : Darling Rust DO) Station: -1 (07/28/23604 : Darling Rust DO) Presentation: (not recorded) MEMBRANES: Status: Membrane Status: Artificial ROM after labor (07/28/23 0443 : Radha Bran DO) FHT: 140/Moderate (6-25 bpm) Variability/ Accelerations: Present/ Decelerations: Early TOCO: Regular Contractions, Every 1-2 minutes NST Interpretation: Category 1 A/P: 22 year old EGA:38w5d admitted for IOL GHTN. Pitocin status: unchanged due to adequate labor Dose: *6 dalton-units/min Active Hospital Problems Diagnosis Date Noted Gestational hypertension, third trimester 07/27/2023 - Met criteria in the office today - Asymptomatic - MR on admission - CBC, CMP unremarkable Encounter for induction of labor 07/27/2023 - GBS negative - Pitocin per standard dose protocol - Epidural in place - Amniotomy at 0440, clear fluid - s/p cytotec and fisher balloon - No growth SIGNATURE: Radha Bran DO PATIENT NAME: Nata Penaloza DATE: July 28, 2023 TIME: 6:14 AM [facility] 07-28-2023 Note HNO ID: [id number] Author: Radha Bran DO Service: Obstetrics Author Type: Resident Type: Progress Notes Filed: 07/28/2023 4:46 AM Note Text: OB Labor Progress Note Service Date: July 28, 2023 Service Time: 4:44 AM S: Nata is doing well, very comfortable with epidural and was able to get a nap in. FOB at bedside. O: Vitals: BP 102/74 Pulse 78 Temp 36.8 ?C (98.2 ?F) (Temporal) Resp 18 Ht 162.6 cm (5' 4") Wt 73.9 kg (163 lb) LMP 10/30/2022 (Exact Date) SpO2 98% BMI 27.98 kg/m? CERVICAL EXAM: Dilation: 5 (07/28/23442 : Radha Bran DO) Effacement (%): 70 (07/28/23442 : Radha Bran DO) Station: -2 (07/28/23442 : Radha Bran DO) Presentation: (not recorded) MEMBRANES: Status: Membrane Status: Artificial ROM after labor (07/28/23442 : Radha Bran DO) SVE performed 5/70/2, head well applied. heart tracing was Category 1 immediately prior to amniotomy. Risks, benefits, alternatives of amniotomy reviewed with patient. Patient comfortable with epidural and would like to proceed with amniotomy at this time. Amniotomy performed at 0440 for clear fluid. Immediately after amniotomy heart tracing was Category 1. FHT: 140/Moderate (6-25 bpm) Variability/ Accelerations: Present/ Decelerations: None TOCO: Regular Contractions, Every 2 minutes NST Interpretation: Category 1 A/P: 22 year old at 38w5d admitted for IOL GHTN Pitocin status: unchanged due to q2min contractions Dose: *6 dalton-units/min Active Hospital Problems Diagnosis Date Noted Gestational hypertension, third trimester 07/27/2023 - Met criteria in the office today - Asymptomatic - MR on admission - CBC, CMP unremarkable Encounter for induction of labor 07/27/2023 - GBS negative - Pitocin per standard dose protocol - Epidural in place - Amniotomy at 0440, clear fluid - s/p cytotec and fisher balloon - No growth SIGNATURE: Radha Bran DO PATIENT NAME: Nata Penaloza DATE: July 28, 2023 TIME: 4:44 AM [facility] 07-28-2023 Note HNO ID: [id number] Author: Rodri French APRN.SEASONAL CLERK Service: Anesthesiology Author Type: Nurse Sales Operations Lead Type: Anesthesia Procedure Notes Filed: 07/28/2023 2:40 AM Note Text: ANESTHESIOLOGY PROCEDURE NOTE Epidural Block General Information Procedure Start Time/Medication Administration: 07/28/2023 2:05 AM Patient location during procedure: [facility] room Timeout Performed Pre-procedure: timeout performed Consent Obtained: Yes Patient identity confirmed: arm band, care operations team leader and patient Reason for block: labor epidural Staffing SEASONAL CLERK: Rodri French APRN.SEASONAL CLERK Performed by: SEASONAL CLERK Preparation Sterility Preparation: hand hygiene performed prior to procedure, sterile gloves, drapes, and procedure tray, surgical cap used, mask used, sterile drape used during line insertion, skin prep agent completely dried prior to procedure Sterility Technique Not Completely Performed Due to Extreme Emergency: No Site Prep: Betadine Procedure Details Patient position: sitting Ultrasound Guided: No Patient monitoring: Pulse OX and NIBP Approach: midline Injection technique: NATALIA saline Region: lumbar Estimated Interspace: 2-3 Number of Attempts: 1 Needle and Epidural Catheter Needle type: Tuohy Needle gauge: 17G Needle length: 3.5 in Needle insertion depth: 6 cm Catheter Catheter type: side hole Catheter size: 19 G Catheter at skin depth: 11 cmTest Dose Response: negative Assessment Sensory level: T6 Beginning Pain Score: 8/10 Pain Score After Treatment: 0/10 Events: tolerated well without discomfort SIGNATURE: Rodri French APRN.CRNA PATIENT NAME: Nata Penaloza DATE: July 28, 2023 TIME: 2:39 AM CSN: [id number] [facility] 07-28-2023 Note HNO ID: [id number] Author: Coral Freeman MD Service: Obstetrics Author Type: Resident Type: Progress Notes Filed: 07/28/2023 1:51 AM Note Text: OB Labor Progress Note Service Date: July 28, 2023 Service Time: 1:49 AM S: Patient uncomfortable, requesting epidural at this time. O: Vitals: BP 132/89 Pulse 88 Temp 36.8 ?C (98.2 ?F) (Temporal) Resp 16 Ht 162.6 cm (5' 4") Wt 73.9 kg (163 lb) LMP 10/30/2022 (Exact Date) BMI 27.98 kg/m? CERVICAL EXAM: Dilation: 5 (07/28/23142 : Leelee Saini MD) Effacement (%): 70 (07/28/23142 : Leelee Saini MD) Station: -2 (07/28/23142 : Leelee Saini MD) Presentation: (not recorded) MEMBRANES: Status: Membrane Status: Intact (07/27/232256 : Coral Freeman MD) FHT: 120/Moderate (6-25 bpm) Variability/ Accelerations: Present/ Decelerations: None TOCO: Regular Contractions, Every 2-3 minutes NST Interpretation: Category 1 A/P: 22 year old at 38w5d admitted for induction of labor for gestational hypertension. Pitocin status: increase per protocol until adequate labor Dose: *6 dalton-units/min Active Hospital Problems Diagnosis Date Noted Encounter for induction of labor 07/27/2023 - GBS negative - Pitocin per standard dose protocol - Epidural PRN - Amniotomy PRN - s/p cytotec and fisher balloon - No growth SIGNATURE: Coral Freeman MD PATIENT NAME: Nata Penaloza DATE: July 28, 2023 TIME: 1:49 AM [facility] 07-28-2023 Note HNO ID: [id number] Author: Coral Freeman MD Service: Obstetrics Author Type: Resident Type: Progress Notes Filed: 07/27/2023 11:00 PM Note Text: OB Labor Progress Note Service Date: July 27, 2023 Service Time: 10:58 PM S: Patient tolerating labor well. Upon cervical exam, fisher balloon appropriate for removal. Fisher balloon deflated and removed without difficulty. O: Vitals: BP 141/87 Pulse 85 Temp 36.8 ?C (98.2 ?F) (Temporal) Resp 18 Ht 162.6 cm (5' 4") Wt 73.9 kg (163 lb) LMP 10/30/2022 (Exact Date) BMI 27.98 kg/m? CERVICAL EXAM: Dilation: 4 (07/27/232256 : Coral Freeman MD) Effacement (%): 70 (07/27/232256 : Coral Freeman MD) Station: -2 (07/27/232256 : Coral Freeman MD) Presentation: (not recorded) MEMBRANES: Status: Membrane Status: Intact (07/27/232256 : Coral Freeman MD) FHT: 120/Moderate (6-25 bpm) Variability/ Accelerations: Present/ Decelerations: None TOCO: Irregular Contractions, Irregular NST Interpretation: Category 1 A/P: 22 year old at 38w4d admitted for induction of labor for gestational hypertension. Pitocin status: starting now Active Hospital Problems Diagnosis Date Noted Encounter for induction of labor 07/27/2023 - GBS neg - s/p cty/fb - Pitocin per low dose - Amniotomy PRN - Epidural PRN - No growth SIGNATURE: Coral Freeman MD PATIENT NAME: Nata Penaloza DATE: July 27, 2023 TIME: 10:58 PM [facility] 07-27-2023 Note HNO ID: [id number] Author: Leelee Saini MD Service: Obstetrics Author Type: Resident Type: Progress Notes Filed: 07/27/2023 6:52 PM Note Text: Procedure: Cervical Ripening Balloon Indication: Patient is a 22 year old year old female, 38w4d here for induction of labor. Pre-operative/Pre-procedure Diagnosis: Un-ripe cervix Post-operative/Post-procedure Diagnosis: Same Procedure Details: The cervix was examined and found to be 2 cm dilated. A Fisher Catheter was inserted through the cervical os, beyond internal os and approximately 60 cc of sterile saline slowly injected into the intrauterine portion of the balloon The catheter was taped to the inner thigh. Cytotec #1 was then placed. Patient tolerated procedure well. 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 documented as of this encounter (statuses as of 11/23/2023) [place]10-23-2023 NoteHNO ID: [id number] Author: Darling Rust DO Service: Obstetrics Author Type: Resident Type: Progress Notes Filed: 07/26/2023 8:51 PM Note Text: Return precautions for pre-eclampsia reviewed including DOMINGUEZ not responsive to tylenol, vision changes, SOB, CP, RUQ pain, and BP reading greater than 150/100. Patient verbalized understanding. Darling Rust [facility]10-23-2023 NoteHNO ID: [id number] Author: Elizabeth Storey DO Service: ? Author Type: Resident Type: Progress Notes Filed: 07/26/2023 8:09 PM Note Text: We have reviewed her labs and there is no concern for pre-eclampsia at this time. Return precautions reviewed with patient. CBC, Coags, BMP, Mg, Phos Recent Labs 07/26/23 1853 WBC 11.02* HB 13.8 HCT 39.1 PLT 211 NA 135* K 3.7 CHLOR 101 CO2 20* BUN 13 CREAT 0.54* GLUC 71* CA 9.0 UPC 0.1 07/26/23 18407/26/23189907/26/23191407/26/231929 BP: 139/98 146/105 152/103 133/90 SpO2: Patient discharged home in stable condition with plan to make appointment for bp check in the morning Reviewed with Dr. Baird and Dr. Shantal Storey DO [facility] Emergency Medicine Resident [facility] NoteHNO ID: [id number] Author: Ada Baird MD Service: Obstetrics Author Type: Physician Type: Procedures Filed: 07/26/2023 8:28 PM Note Text: OBSTETRICS NST SUMMARY SERVICE DATE: July 26, 2023 The patient is a 22 year old female, , who is at 38w3d with an EVAN of 08/06/2023, by Last Menstrual Period dating method. NST OBJECTIVE FINDINGS PER NURSE: Start Time: 1800 (07/26/231899 : Chacha Gutiérrez, RN) Complete Time: 1899 (07/26/231899 : Chacha Gutiérrez, RN) Indications: (r/o pre e) (07/26/231899 : Chcaha Gutiérrez, RN) Patient Reason For: monitor baby (07/26/231899 : Chacha Gutiérrez, RN) NST Explanation: Monitor Explained;Procedure Explained;Verbalizes Understanding (07/26/231899 : Chacha Gutiérrez RN) Acoustic Stimulator: No (07/26/231899 : Chacha Gutiérrez RN) Interventions: (none) (07/26/231899 : Chacha Gutiérrez RN) MONITORING/ASSESSMENT: Baseline: 130 bpm (07/26/231899 : Chacha Gutiérrez RN) Variability: Moderate (6-25 bpm) (07/26/231899 : Chacha Gutiérrez RN) Accelerations: Present (07/26/231899 : Chacha Gutiérrez RN) Decelerations: Decelerations: None (07/26/231899 : Chacha Gutiérrez RN) Contractions: Irregular (07/26/231899 : Chacha Gutiérrez RN) Frequency: x3 (07/26/231899 : Chacha Gutiérrez RN) Above information forwarded to Dr. Baird (07/26/231899 : Chahca Gutiérrez RN) for final review and interpretation. SIGNATURE: Chacha Gutiérrez RN PATIENT NAME: Nata Penaloza DATE: July 26, 2023 TIME: 7:19 PM PROVIDER INTERPRETATION: Reactive SIGNATURE: Ada Baird MD DATE: July 26, 2023 TIME: 8:28 [facility]10-23-2023 NoteHNO ID: [id number] Author: Elizabeth Storey DO Service: Obstetrics Author Type: Resident Type: Progress Notes Filed: 07/26/2023 7:02 PM Note Text: Attestation signed by Ada Baird MD at 07/26/2023 8:35 PM Attending Note I evaluated the patient and personally participated in the garcia components. I agree with the resident's findings and plan with the following revisions and/or additions: Patient seen in office on 07/23/23. BP noted to be higher than baseline but normal range, 130/74. Urine dip with 30 of protein and was sent for UPC. UPC returned .10 but random urine protein elevated . Therefore sent to OB ED for evaluation. Repeat BPs Patient Vitals for the past 24 hrs: BP 07/26/23 1930 133/90 07/26/23 1915 152/103 07/26/23 1900 146/105 07/26/23 1845 139/98 07/26/23 1830 141/94 07/26/23 1815 130/106 07/26/23 1800 127/97 Labs normal. Repeat BP tomorrow in office. Signature: Ada Baird MD Date: 07/26/2023 Time: 8:31 PM OBSTETRICS OB ED PROGRESS NOTE SERVICE DATE: July 26, 2023 SERVICE TIME: 1641 Subjective Patient's stated reason for arrival: pre e worries per CHIEF COMPLAINT: High blood pressure HISTORY OF THE PRESENT ILLNESS: The patient is a 22 year old female, , who is at 38w3d with an EVAN of 08/06/2023, by Last Menstrual Period dating method. Patient is here complaining of high blood pressure. Good movement. Denies vaginal bleeding., Denies contractions., Denies leaking of fluid. . PAST MEDICAL HISTORY Diagnosis Date No pertinent past medical history UTI (urinary tract infection) PAST SURGICAL HISTORY Procedure Laterality Date EXTENSIVE JAW SURGERY ORTHOPEDICS SURGERY HX RECONSTRUCT CLEFT PALATE FAMILY HISTORY Problem Relation Age of Onset No Known Problems Mother No Known Problems Father No Known Problems Sister No Known Problems Brother No Known Problems Brother OB History T0 L0 SAB0 IAB0 Ectopic0 Multiple0 Live Births0 REVIEW OF SYSTEMS: PAIN ASSESSMENT: Negative for pain, history of chronic pain, or current treatment for a chronic pain condition. Objective LAST VITALS: 103/73 at 1841 PHYSICAL EXAM: General: WD, WN, NAD, comfortable Heart: RR, S1, S2, no pool, rub, or murmur appreciated Lungs: clear to auscultation Abdomen: soft, nontender Extremities: no edema MONITORING/ASSESSMENT: FHR: 130/mod/+accels/-deccels TOCO: irregular contractions NST: reactive Category 1 LABS Diagnostic tests reviewed for today's visit: Most recent labs Most recent imaging Assessment/Plan 22 year old EGA:38w3d. The patient is a 22 year old who presents to labor and delivery for elevated blood pressure with at home readings of systolics in the 140s and diastolics in the 80s. Active Hospital Problems Diagnosis Date Noted Elevated blood pressure affecting in third trimester, antepartum 07/26/2023 Overview Note: -patient asymptomatic upon arrival -reports headaches and blurry vision at home with mild range blood pressures -blood pressure on arrival 138/98 -PE benign -cycle bps every 15 mins -CBC, CMP, UPC Plan of care discussed with: Dr. Rust and Dr. [place] . SIGNATURE: Elizabeth Storey DO PATIENT NAME: Nata Penaloza DATE: July 26, 2023 TIME: 6:41 [facility]10-23-2023 Miscellaneous Notes* Telephone Encounter - Jessie Whaley LPN - 07/26/2023 3:48 PM EDT Patient called and requesting someone get back to her re her labs from Wednesday. Protein 41 and Creatinine 420.4. Patient states BP's have been running higher than her normal over the weekend, in the 140's/80's. Patient denies any edema at this time. Per Dr. Talamantes patient needs to go to OB triage.Patient called and has verbalized understanding. Jessie Whaley LPN documented in this [facility]10-20-2023 History of Present illness Narrative* Remi Powell MD - 07/23/2023 3:16 PM EDT Please refer to quick note and flow sheet. Remi Powell MD documented in this [facility]10-20-2023 Miscellaneous Notes* Quick Notes - Remi Powell MD - 07/23/2023 3:10 PM EDT Here for routine Visit at 38w0d. No complaints. Good movement. No vaginal bleeding, leakage of fluids, contractions. Ob education done, questions answered. BP mildly elevated, but normal range. =30 protein in urine. Will check urine protein/creat ratio. Pt instructed to check her BP twice a day. Remi Powell MD documented in this [facility]10-20-2023 Nurse Note* Karli Pineda Ma - 07/23/2023 2:52 PM EDT Movement? Active baby Vaginal Bleeding: NO Vaginal fluid leakage of fluid: NO Contractions: [place] type documented in this [facility]10-20-2023 History of Present illness Narrative* Georgiana Kasper MA - 07/23/2023 12:02 PM EDT POPULATION HEALTH NAVIGATION OUTREACH Action/FYI Called and spoke with pt and confirmed/updated manager quality compliance. Patient Identified by Name and : YES, via phone Outreach Outcome/Action OB/PEDS field updated Did you use a PCP flex slot to schedule this appointment? N/A Reason for Outreach [place] Payer: Payor: [facility] [employer] / Plan: P STAFF/NON STAFF / Product Type: EPO / Care Gap Reviewed:: N/A Reminder: Reminder note to check Health Maintenance for items below Health Maintenance items due: Meningococcal B Vaccine: Consider Based On Risk(1 of 2 - Patient Seeks Protection) Never done Depression Assessment due on 10/04/2022 Covid-19 Vaccine( season) due on 06/04/2023 Navigation Signature: Georgiana Driscoll MA July 23, 2023 12:03 PM documented in this [facility]10-14-2023 History of Present illness Narrative* Remi Powell MD - 07/17/2023 12:37 PM EDT Please refer to quick note and flow sheet. Remi Powell MD documented in this [facility]10-14-2023 Miscellaneous Notes* Quick Notes - Remi Powell MD - 07/17/2023 12:36 PM EDT Here for routine Visit at 37w1d. No complaints. Good movement. No vaginal bleeding, leakage of fluids, contractions. Ob education done, questions answered. GBS done. Remi Powell MD documented in this [facility]10-13-2023 Nurse Note* Kinza Fuchs Ma - 07/16/2023 3:14 PM EDT Movement? Active baby Vaginal Bleeding: NO Vaginal fluid leakage of fluid: NO Contractions: no contractions documented in this [facility]09-28-2023 History of Present illness Narrative* Remi Powell MD - 07/01/2023 6:23 PM EDT Please refer to quick note and flow sheet. Remi Powell MD documented in this [facility]09-28-2023 Miscellaneous Notes* Quick Notes - Remi Powell MD - 07/01/2023 6:22 PM EDT Here for routine Visit at 34w6d. No complaints. Good movement. No vaginal bleeding, leakage of fluids, contractions. Ob education done, questions answered. BP wnl. GBS next visit. Remi Powell MD documented in this [facility]09-28-2023 Nurse Note* Kinza Fuchs Ma - 07/01/2023 3:32 PM EDT Movement? Active baby Vaginal Bleeding: NO Vaginal fluid leakage of fluid: NO Contractions: no contractions documented in this [facility]09-23-2023 History of Present illness Narrative* Elysia Collier MD - 06/26/2023 4:10 PM EDT Please refer to flow sheet and comments for OB note. Elysia Collier MD documented in this [facility]09-22-2023 Miscellaneous Notes* Quick Notes - Elysia Collier MD - 06/25/2023 3:46 PM EDT Denies any vaginal bleeding, leaking of fluid; notes occasional cramping or contractions. Good FM. Has noted recent visual changes & BP today is higher than typial for her- will check CMP & CBC. Discussed with patient recommendation for flu vaccine (inactivated/injection) and ways to obtain(as well as family members getting vaccinated)- she accepts. Elysia Collier MD documented in this [facility]09-22-2023 Nurse Note* Karli Pineda Ma - 06/25/2023 3:17 PM EDT Movement? Active baby Vaginal Bleeding: NO Vaginal fluid leakage of fluid: NO Contractions: no contractions documented in this [facility]08-23-2023 History of Present illness Narrative* Greardo Tonya, BRITTANY.FOOD AND BEVERAGE SERVER - 05/26/2023 6:53 PM EDT This note was created using iRiseriter. Subjective Nata Penaloza is a 22 year old female. 22 year old female with PMH T & A who is currently 29 weeks (G1) gestational presents with complaints of illness. Sore throat Acute onset 05/18/23 Seen @ [facility], strep negative COVID negative Presents today with continued sx. Denies eye, ear, or nose complaints. Denies cough. Vaginal discharge Slightly yellow +odorous Denies vaginal bleeding. Denies sx. Denies abdominal cramping. 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 The history is provided by the patient. No director speech language was used. Sore Throat This is a new problem. Pertinent negatives include no abdominal pain, congestion, coughing, diarrhea, drooling, ear discharge, ear pain, headaches, hoarse voice, plugged ear sensation, neck pain, shortness of breath, stridor, swollen glands, trouble swallowing or vomiting. She has had no exposure to strep or mono. She has tried nothing for the symptoms. The treatment provided no relief. PAST MEDICAL HISTORY Diagnosis Date No pertinent past medical history UTI (urinary tract infection) PAST SURGICAL HISTORY Procedure Laterality Date EXTENSIVE JAW SURGERY ORTHOPEDICS SURGERY HX RECONSTRUCT CLEFT PALATE ALLERGIES Patient has no known allergies. MEDICATIONS famotidine (PEPCID) 20 mg tablet Take 1 tablet by mouth once daily. calcium carbonate (TUMS) 500 mg chew Take 1 & 1/2 tablets by mouth three times daily. Vitamin w/ Iron ( VITAMIN PLUS LOW IRON) 27 mg iron- 1 mg Take 1 tablet by mouth once daily. ferrous sulfate 325 mg (65 mg iron) tablet Take 1 tablet by mouth daily at bedtime. omega-3 DHA-EPA (FISH OIL) 1,200 (144-216) mg capsule Take 1 capsule by mouth daily with breakfast. calcium carbonate-vitamin D3 1,000 mg-20 mcg (800 unit) tab Take 1 tablet by mouth once daily. benzocaine-menthol (CEPACOL SORE THROAT, TOM-MEN,) 15-2.6 mg lozg lozenge Take 1 Lozenge by mouth every 3 hours as needed. (Patient not taking: Reported on 05/26/2023) lidocaine viscous (XYLOCAINE) 2 % solution Gargle and spit 5 to 15 mL for no more frequently than every 3 hours. Do no exceed more than 8 doses per 24-hour period for up to 7 days (Patient not taking: Reported on 05/26/2023) pyridoxine, vitamin B6, (VITAMIN B-6) 100 mg tablet Take 1 tablet by mouth once daily. ondansetron orally disintegrating (ZOFRAN ODT) 8 mg disintegrating tablet Dissolve 1 tablet by mouth once daily as needed for nausea/vomiting. [id number] 27 mg iron-800 mcg-260 mg Take 1 capsule by mouth once daily. FAMILY HISTORY Problem Relation Age of Onset No Known Problems Mother No Known Problems Father No Known Problems Sister No Known Problems Brother No Known Problems Brother Social History Tobacco Use Smoking status: Never Passive exposure: Never Smokeless tobacco: Never Vaping Use Vaping Use: Never used Substance Use Topics Alcohol use: Not Currently Comment: social Drug use: Never Review of Systems Constitutional: Positive for activity change, appetite change and fatigue. Negative for fever. HENT: Positive for sore throat. Negative for congestion, drooling, ear discharge, ear pain, hoarse voice and trouble swallowing. Eyes: Negative for pain, discharge, redness and itching. Respiratory: Negative for cough, shortness of breath and stridor. Cardiovascular: Negative for chest pain, palpitations and leg swelling. Gastrointestinal: Negative for abdominal pain, diarrhea and vomiting. Genitourinary: Positive for vaginal discharge. Negative for vaginal bleeding. Musculoskeletal: Negative for neck pain. Skin: Negative for color change, pallor, rash and wound. Allergic/Immunologic: Negative for environmental allergies, food allergies and immunocompromised state. Neurological: Negative for headaches. Hematological: Negative for adenopathy. Does not bruise/bleed easily. Psychiatric/Behavioral: Negative for agitation and behavioral problems. Objective BP 104/76 Pulse 85 Temp 36.8 C (98.3 F) Resp 21 Wt 73.4 kg (161 lb 12.8 oz) LMP 10/30/2022 (Exact Date) SpO2 97% BMI 27.77 kg/m Physical Exam Vitals and nursing note reviewed. Constitutional: General: She is not in acute distress. Appearance: Normal appearance. She is normal weight. She is not ill-appearing, toxic-appearing or diaphoretic. HENT: Head: Normocephalic and atraumatic. Right Ear: Ear canal and external ear normal. Left Ear: Ear canal and external ear normal. Nose: Nose normal. No congestion or rhinorrhea. Mouth/Throat: Mouth: Mucous membranes are moist. Pharynx: Posterior oropharyngeal erythema (tonsils surgically absent. +erythema noted Uvula midline. Handling secretions.) present. No oropharyngeal exudate. Eyes: General: Right eye: No discharge. Left eye: No discharge. Extraocular Movements: Extraocular movements intact. Conjunctiva/sclera: Conjunctivae normal. Pupils: Pupils are equal, round, and reactive to light. Cardiovascular: Rate and Rhythm: Normal rate and regular rhythm. Pulses: Normal pulses. Heart sounds: Normal heart sounds. No murmur heard. No friction rub. Pulmonary: Effort: Pulmonary effort is normal. No respiratory distress. Breath sounds: Normal breath sounds. No stridor. No wheezing, rhonchi or rales. Chest: Chest wall: No tenderness. Abdominal: General: Abdomen is flat. There is no distension. Palpations: Abdomen is soft. There is no mass. Tenderness: There is no abdominal tenderness. There is no right CVA tenderness, left CVA tenderness, guarding or rebound. Hernia: No hernia is present. Musculoskeletal: General: No swelling, tenderness, deformity or signs of injury. Normal range of motion. Cervical back: Normal range of motion and neck supple. No rigidity. Right lower leg: No edema. Left lower leg: No edema. Lymphadenopathy: Cervical: No cervical adenopathy. Skin: General: Skin is warm and dry. Capillary Refill: Capillary refill takes less than 2 seconds. Coloration: Skin is not jaundiced or pale. Findings: No bruising, erythema, lesion or rash. Neurological: General: No focal deficit present. Mental Status: She is alert and oriented to person, place, and time. Cranial Nerves: No cranial nerve deficit. Sensory: No sensory deficit. Motor: No weakness. Coordination: Coordination normal. Gait: Gait normal. Psychiatric: Mood and Affect: Mood normal. Behavior: Behavior normal. Thought Content: Thought content normal. Judgment: Judgment normal. Assessment and Plan ASSESSMENT/PLAN: 1. Pharyngitis, unspecified etiology - ICD9: 462, ICD10: J02.9 Seen 05/19/23 for same Strep negative - suspect viral - Group A strep molecular testing negative - Discussed supportive care treatment with fluids, rest and analgesia. - The patient may also use warm salt water gargles, throat lozenges and/or OTC throat spray as needed and nasal saline gtts and suction prn. - Contagious dz precautions discussed- including considered contagious until on antibiotics for 24 hours - The patient should follow up in 3-5 days if symptoms persist or worsen - Call back if drooling, increased temperature, symptoms of dehydration and/or still sick in one week - STREP A MOLECULAR (POC) 2. Vaginal discharge X 3 days Currently 29 weeks Discussed with patient that express care does not handle METAL STAMPER complaints, She is to call her METAL STAMPER first thing in morning for evaluation and management. Verbalized understanding. Tonya Gerardo APRN.FOOD AND BEVERAGE SERVER documented in this [facility]08-18-2023 History of Present illness Narrative* Remi Powell MD - 05/21/2023 9:00 AM EDT Please refer to quick note and flow sheet. Remi Powell MD documented in this [facility]08-18-2023 Miscellaneous Notes* Quick Notes - Remi Powell MD - 05/21/2023 9:00 AM EDT Here for routine Visit at 29w0d. No complaints. Good movement. No vaginal bleeding, leakage of fluids, contractions. Ob education done, questions answered. CBC and Tdap today. Remi Powell MD documented in this [facility]08-18-2023 Nurse Note* Ghislaine Baltazar MA - 05/21/2023 8:44 AM EDT Movement? Active baby Vaginal Bleeding: NO Vaginal fluid leakage of fluid: NO Contractions: no contractions documented in this [facility]08-16-2023 Instructions* Patient Instructions* Jerri Saab APRN.CNP - 05/19/2023 3:31 PM EDT Patient education: Sore throat in adults (The Basics) Do I need antibiotics? If you have an infection caused by a virus, you do not need antibiotics. But if you have strep throat, you should get antibiotics. When should I see a doctor or nurse about a sore throat? Most people do not need to see a doctor about a sore throat. It usually gets better on its own. What causes sore throat? Sore throat is usually caused by an infection. Two types of germs can cause it: viruses and bacteria. People who have a sore throat caused by a virus do not usually need to see a doctor or nurse. However, during the COVID-19 pandemic, most people with a sore throat will need to be tested for the virus that causes COVID-19 People who have a sore throat caused by bacteria might need to see a doctor or nurse. They might have a type of infection called strep throat. Only about 1 in 10 adults who seek medical care for sorethroat have strep throat. How can I tell if my sore throat is caused by a virus or strep throat? People who have a sore throat caused by a virus usually have other symptoms, such as: ?A runny nose ?A stuffed-up chest ?Itchy or red eyes ?Cough What can I do to feel better? If you want some relief from the pain of sore throat, you can take pain medicine that you can get without a prescription. Throat sprays are no better at soothing pain than sucking on cough drops or candy. Some people feel relief if they gargle with salt water. What can I do to prevent getting a sore throat again? Wash your hands often with soap and water. It is one of the best ways to prevent the spread of infection. documented in this [facility]08-16-2023 History of Present illness Narrative* Jerri Saab APRN.FOOD AND BEVERAGE SERVER - 05/19/2023 3:02 PM EDT Images from the original note were not included. CC: 5/10 sore throat since yesterday The history is provided by the patient The patient's preferred language is Ivorian PAST MEDICAL HISTORY Diagnosis Date No pertinent past medical history UTI (urinary tract infection) HPI: Nata Penaloza is a 22 year old female who presents today for 5/10 sore throat since yesterday Denies fever/chills Denies cough Denies NVD Denies loss of taste/smell Denies white spots on tonsils Able to tolerate food/drink COVID-19 Screening: Fever (?100.4F): No Chills: No Cough: No Shortness of breath: No Difficulty breathing: No Fatigue: No Muscle aches: No Headache: No New loss of smell or taste: No Sore throat: Yes Nasal congestion: Yes Rhinorrhea: No Nausea: No Vomiting: No Diarrhea: No Known Covid-19 exposure No REVIEW OF SYSTEMS (*in regard to chief complaint, symptoms, physical findings on exam, differential diagnosis, current medications or potential medications, allergies, and related systems, the following ROS questions are elicited): *See HPI, additionally: Last 3 Encounter BP Readings: Date: BP: 05/19/2023 128/82 04/20/2023 112/60 03/31/2023 96/56 Physical Exam Vitals and nursing note reviewed. Constitutional: Appearance: Normal appearance. HENT: Head: Normocephalic. Nose: Nose normal. Mouth/Throat: Pharynx: Posterior oropharyngeal erythema present. Eyes: Conjunctiva/sclera: Conjunctivae normal. Cardiovascular: Rate and Rhythm: Normal rate. Pulmonary: Effort: Pulmonary effort is normal. Neurological: General: No focal deficit present. Mental Status: She is alert and oriented to person, place, and time. Mental status is at baseline. Assessment/Plan Sore throat - ICD9: 462, ICD10: J02.9 (primary diagnosis) Suspected COVID-19 virus infection - ICD9: V01.79, ICD10: Z20.822 - STREP A MOLECULAR (POC) = Negative - COVID & INFLUENZA A/B & RSV NAAT, ROUTINE - Suspect viral - Rapid Strep negative in the office today - Discussed supportive care treatment with fluids, rest and analgesia. - The patient may also use warm salt water gargles, throat lozenges and/or OTC throat spray as needed. - The patient should follow up in 3-5 days if symptoms persist or worsen - Call back if drooling, increased temperature, symptoms of dehydration and/or still sick in one week Reviewed diagnosis above. Call for new problems or concerns. Orders as noted. No follow-ups on file. Signed: RA Armando [facility] spent a total of 15 minutes on the date of the service which included preparing to see the patient, [id number] patient care, completing clinical documentation, obtaining and/or reviewing separately obtained history, performing a medically appropriate examination, counseling and educating the pat ient/family/caregiver, and ordering medications, tests, or procedures. documented in this [facility]07-18-2023 Miscellaneous Notes* Quick Notes - Orlando Burroughs MD - 04/20/2023 8:24 AM EDT 1 hour, W/O complaint, No LOF, No Ctx's, No Vag bleed. Juana Burroughs MD documented in this [facility]07-18-2023 Nurse Note* Kinza Fuchs Ma - 04/20/2023 8:19 AM EDT Movement? Active baby Vaginal Bleeding: NO Vaginal fluid leakage of fluid: NO Contractions: no contractions documented in this [facility]05-02-2023 History of Present illness Narrative* Remi Powell MD - 02/02/2023 2:56 PM EDT Please refer to quick note and flow sheet. Remi Powell MD documented in this [facility]05-02-2023 Miscellaneous Notes* Quick Notes - Remi Powell MD - 02/02/2023 2:54 PM EDT Here for routine Visit at 13w4d. No complaints. No vaginal bleeding, leakage of fluids, contractions. Ob education done, questions answered. Labs reviewed. Remi Powell MD documented in this [facility]05-01-2023 Miscellaneous Notes* Telephone Encounter - Melony Bryan RN - 02/01/2023 11:40 AM EDT Called Nata Penaloza and identified by name and date of . Nata Penaloza was informed of negative Non-Invasive Testing (NIPT) results for Trisomy 21, Trisomy 18 and Trisomy 13. Patient was also notified of the result of no sex chromosome aneuploidy detected. Patient does not wish to know reported sex, notified that results will be released on to [facility] and not to look if she does not want to know gender. Reviewed with patient Nata Penaloza that NIPT is considered screening and not diagnostic, so this result greatly reduces, but does not eliminate the chance that the fetus could have trisomy 21, trisomy 18, trisomy 13 or sex chromosome aneuploidy. Nata Penaloza indicated understanding this information. Patient advised to follow up with AFP neural tube defect screening (blood draw) at 16-18 weeks gestation and 18-20 week detailed anatomy ultrasound. Also instructed to follow-up with Primary OB Provider. Melnoy Bryan RN * Telephone Encounter - Melony Bryan RN - 02/01/2023 11:28 AM EDT Left message for patient to return call for genetic screening results. Melony Bryan RN documented in this [facility]04-28-2023 Nurse Note* Kinza Fuchs Ma - 01/29/2023 8:11 AM EDT Movement? Active baby Vaginal Bleeding: NO Vaginal fluid leakage of fluid: NO Contractions: no contractions documented in this [facility]03-24-2023 History of Present illness Narrative* Remi Powell MD - 12/25/2022 10:05 AM EDT INITIAL OB ASSESSMENT OB Provider: Remi Powell MD HPI: Nata Penaloza is a 22 year old female here to establish Obstetrical Care. Patient's last menstrual period was 10/30/2022 (exact date). from OB Dating Form. Cycle length: 28 days Complaints: nausea and vomiting was planned. OB History T0 L0 SAB0 IAB0 Ectopic0 Multiple0 Live Births0 Prior : never History of 4th degree laceration: No Patient's Risk Screening for delivery: Have you had a prior senior between 20w and 36w6d?: No History of abnormal pap: No Prior treatment for cervical dysplasia: none. 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 cetirizine (ZYRTEC) 10 mg tablet Take 1 tablet by mouth once daily. (Patient taking differently: Take 10 mg by mouth as needed.) No current facility-administered medications on file prior to visit. Review of Systems: GENERAL: Negative for: Fever or Chills HEENT: Negative for: Headache, Impaired Vision, Ringing in Ears, Nosebleeds NECK: Negative for: Swelling, Pain, Stiffness RESPIRATORY: Negative for: Cough, Shortness of breath, Wheezing GASTROINTESTINAL: Negative for: Heartburn, Constipation, Diarrhea, Blood in stool, Vomiting MUSCULOSKELETAL: Negative for: Muscle or joint pain, stiffness, Joint swelling NEUROLOGIC/PSYCHIATRIC: Negative for: Weakness, Paralysis, Numbness, Tingling, Tremor, Anxiety, Depression, Memory loss SKIN: Negative for: Rash, Itching GENITOURINARY: Negative for: vaginal itching, vaginal discharge, hematuria or dysuria PHYSICAL EXAM: BP 106/62 Ht 5' 4" (1.63m) Wt 146 lb (66.2kg) LMP 10/30/2022 BMI 25.05 kg/(m^2). GENERAL: pleasant female in no apparent distress DERMATOLOGY: Normal, without lesions, non-icteric, and non-hirsute NECK: Supple, full range of motion, no adenopathy, and thyroid normal CHEST: Normal inspiratory effort BREAST: soft, non-tender, symmetric, no dominant mass, normal nipple-areolar complex, no lymphadenopathy, and no nipple discharge ABDOMEN: soft, non-tender, and no masses NEURO: alert and oriented x3,exam grossly non-focal PELVIS: External genitalia normal without lesions. Perineal body intact. No vaginal or cervical lesions. Cervix closed. Uterus 8 week size. No adnexal masses or tenderness. Limited OB ultrasound exam: single intrauterine , positive cardiac activity, and crown-rump length c/w 8w0d OB Risk Screening: Completed, no positive findings documented. ASSESSMENT: 22 year old at 8 wks gestational age PLAN: 1) Patient oriented to practice. Discussed nutrition, folic acid supplementation, dietary guidelines, exercise, smoking, alcohol, caffeine, and drug use. Discussed routine OB labs including STD/HIV. Discussed aneuploidy screening options including serum screening and nuchal translucency. 2) Routine labs and supplements ordered 3) NT US in 4 weeks Follow up in 3 weeks or sooner prn. Remi Powell MD documented in this [facility]03-24-2023 Instructions* Patient Instructions* Remi Powell MD - 12/25/2022 10:05 AM EDT Please select the following link to access the [place] Your Guide to a Healthy . [email or web address] documented in this [facility]03-24-2023 Nurse Note* Ghislaine Baltazar MA - 12/25/2022 9:37 AM EDT Movement? Too early Vaginal Bleeding: NO Vaginal fluid leakage of fluid: NO Contractions: no contractions documented in this [facility]02-27-2023 Instructions* Patient Instructions* Maegan Morrissey PA-C - 11/30/2022 12:38 PM EST [facility] [phone] documented in this [facility]02-27-2023 History of Present illness Narrative* Maegan Morrissey PA-C - 11/30/2022 12:16 PM EST Images from the original note were not included. [facility] [place] Department of General Internal Medicine [facility] Outpatient Visit Date: November 30, 2022 CC: Patient presents with: Testing: Home test positive; pt seeking confirmation and next steps HPI: Nata Penaloza is a 21 year old female who presents today to the 8 employee walk in clinic for concerns regarding a positive home test. She states that in the past 1 day she has had a positive home test and is here for confirmation. She notes she is 2 days late for her menstrual cycle. She has been experiencing some lower abdominal cramping. She denies nausea. Denies vaginal discharge or bleeding. This would be her first . She takes no medications currently. Was taking zyrtec prn for allergy symptoms. She has hx of bipolar disorder. She is not on lamictal - did not tolerate. She denies feeling symptoms of bipolar disorder. She does not have an OBGYN. PAST MEDICAL HISTORY Diagnosis Date No pertinent past medical history UTI (urinary tract infection) PAST SURGICAL HISTORY Procedure Laterality Date EXTENSIVE JAW SURGERY ORTHOPEDICS SURGERY HX RECONSTRUCT CLEFT PALATE Current Outpatient Medications Medication Sig Dispense Refill cetirizine (ZYRTEC) 10 mg tablet Take 1 tablet by mouth once daily. 90 tablet 3 No current facility-administered medications for this visit. Physical Examination: BP 127/84 Pulse 101 Temp 36.6 C (97.9 F) (Oral) LMP 10/30/2022 (Exact Date) SpO2 98% General: well appearing, well developed. In no acute distress. Head: normocephalic, atraumatic Eyes: EOMI, normal conjunctiva Lungs: non labored breathing Abdomen: soft, non-distended Extremities: no peripheral edema present. Assessment/Plan: 1. Possible - ICD9: V72.40, ICD10: Z32.00 (primary diagnosis) 2. confirmed by positive urine test - ICD9: V72.42, ICD10: Z32.01 - CONSULT TO METAL STAMPER - Urine HCG positive in office today. - Counseled patient on early symptoms and what to expect, avoid. Advised avoiding ETOH, NSAIDs, OTC decongestants, etc. - Discussed all options for management of early . Patient wishes to proceed with scheduling f/u with OBGYN. Referral placed and number given to schedule. - Recommended to start a vitamin with folic acid daily. - All questions answered. Patient agreed to plan. Maegan Morrissey PA-C documented in this encounter[facility]02-07-2023 Miscellaneous Notes* Telephone Encounter - JERI Barahona - 11/10/2022 9:35 AM EST I called Nata about the IOP at the request of Rajni Evans. She declined. documented in this encounterCenterville01-31-2023 History of Present illness Narrative* Rajni Evans, EMIGDIO - 11/03/2022 3:00 PM EST GENERAL PSYCHOLOGY Virtual Visit Verified that patient is in [facility]. This provider is also in the [facility] Patient was seen for an initial evaluation. All information is from Patient report except when noted. This evaluation is NOT intended for forensic, disability or child custody purposes. Informed consent was discussed and signed by the patient. PRESENT: Self AGE: [age] year old RACE: White MARITAL STATUS: Living with significant other, male partner, good relationship, best she has had. Together 3 months. 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 Stopped that job, moved to [place], but has moved back. PAST MEDICAL HISTORY Diagnosis Date No pertinent past medical history UTI (urinary tract infection) PAST SURGICAL HISTORY Procedure Laterality Date EXTENSIVE JAW SURGERY ORTHOPEDICS SURGERY HX RECONSTRUCT CLEFT PALATE Current Outpatient Medications Medication Sig hydrOXYzine HCl (ATARAX) 10 mg tablet zolpidem (AMBIEN) 5 mg tablet Take 1 tablet by mouth at bedtime as needed for insomnia for up to 30days. hydrOXYzine pamoate (VISTARIL) 25 mg capsule Take 1 capsule by mouth once daily as needed. cetirizine (ZYRTEC) 10 mg tablet Take 1 tablet by mouth once daily. fluticasone (FLONASE ALLERGY RELIEF) 50 mcg/actuation nasal spray Instill 2 sprays in each nostril once daily. lamoTRIgine (LAMICTAL) 25 mg tablet Take 1 tablet by mouth once daily for 2 weeks, then increase to2 tablets (50mg) daily for 2 weeks. lamoTRIgine (LAMICTAL) 100 mg tablet Take 1 tablet by mouth once daily. No current facility-administered medications for this visit. ALLERGIES No Known Allergies REFERRAL SOURCE: Psychiatrist - VIBRATING SCREEN OPERATOR CHIEF COMPLAINT: " Reconsolidation. Therapist." HPI: was seeing another therapist who referred to me- meaning VIBRATING SCREEN OPERATOR. Thought it would be helpful for me to see a therapist,. Depression and anxiety, and perhaps bipolar. It is hard to do certain things such as ADLs and going to work. Hard to be in unfamiliar places. Was referred to [facility], but did not follow up with that. Did not think it would be beneficial to her. Feels her eating issues have been better lately. Sleep: difficulty staying asleep, not rested even when sleeping, some trouble falling asleep. Unsure of what wakes her during the night. This is for the past few months, before that sleep was better. Interest: diminished, feels lazy most of the time, does not want to do things, or leave the house. Hard to do ADLs, house chores. Has to force herself to do those things. Over the past year or two. Enjoys being outside, going on nature walks. Likes hanging out with friends and family, not lately. Guilt: "a bit" Energy: fluctuates, cycles. Feels like it changes out of the blue. Has not tried the Lamictal. "I just don't want to" Concentration: fair, impacted by her mood. Can be hard at work. Listening to music helps. Appetite: better, eating regularly, sometimes has to make herself eat. Had some weight loss, when she 'could not eat', made her feel sick to her stomach. Still struggles to finish food. States there was a time she was avoiding and restricting her food, but not now. Worked on getting used to eating more. Psychomotor activity: psychomotor activity was WNL. Suicide: states no initially, then confronted with PHQ score, states once or twice a week will havefleeting thought, no plan, no intention. Phobias: no irrational fears Memory: Poor, "Not as good as it used to be" has gotten worse over the past couple years, both short term and retirement Anxiety: moderate and gets overwhelming feeling of doom, feels judged when in groups. Panic attacksrarely. Has not had one in a couple of months. Thinks she distracts herself more. Obsessions: none Compulsions: cleaning-has to be precise and will fix things if someone else does it differently. That has been for the past couple of years. Self mutilation: Historical behavior and Cutting, Arms, upper Thighs, started at 16 or 17 years old. Has not done it for the past several months. Uses distraction, or will scratch something with her nails, like her jeans to get the urge out. PSYCHIATRIC HISTORY: Prior Diagnosis: Bipolar, PTSD, Eating D/o Prior Psychiatrist: Followed here at [facility] by Frida Gamboa Therapist: No prior therapist Current Linen Clerk: None Last Hospitalization: None SUICIDE RISK ASSESSMENT: Suicide Attempt(s): Patient denies previous suicide attempts. Risk Factors: History of mental disorder Protective Factors: Strong support system FAMILY PSYCHIATRIC HISTORY: Mother struggles with a lot, dxed with Anxiety, post issues, and depression issues as well. Also Alcohol, still drinking. Father also has had depression. M gmo and m ggmo Alcoholism .drug abuse on mother side as well, maternal Aunt. SUBSTANCE USE HISTORY: Nicotine: None Caffeine: Moncho, 1 or 2/day Alcohol: No history of use or dependence, at times, 'if it is there' will have some, around once a month. 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 Cocaine: No history of use or dependence Opiods: No history of use or dependence PFSH: Nata Penaloza is the oldest of 4 siblings. Two little brothers and an older sister. The patient wasborn and raised in [facility].. 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 She described her childhood as loving, supportive, and criticized. Fine, once I hit 14 or 15, things went down hill with my mom. She was over protective and strict because of her own childhoodabuse. Pt would get in trouble a lot. They still do not have a good relationship, feels she was held to a higher standard than her siblings. Parents together until 9 months ago, when they . They never fought, and she did ot know there were issues. Now looking back can see dad was unhappy. At first that was rough, but then it was fine. With father, good relationship, he is my rock. She lives with him now until they can their own place. Re Trauma: Denies childhood trauma. Was in a 3-4 year relationship around 17 or 18 years old. It was controlling and manipulative. Would keep her from friends and family. 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 She left when he was at the movies. He harassed her a long time, but is not now. The patient lives boy friend, father, and father's fiance. Service: None Legal: Pt. denied any past legal history Spirituality/Scientology: spiritual, believes in Gd Flashbacks + when reminded, intrusive memories +, avoidance +, issues with trust -, issues with intimacy +, emotionally reactive +, emotionally numbed +, hypervigilance +, increased startle response +, dissociation + (quite often, once or twice a week, will question 'am I real") PATIENT DATA: Generalized Anxiety Disorder Scale (FRANCI-7) FRANCI - 7 SCORES 07/15/2022 07/27/2022 10/27/2022 FRANCI-7 Score 17 21 14 (0-4) minimal anxiety, (5-9) mild anxiety, (10-14) moderate anxiety, (15-21) severe anxiety Patient Health Questionnaire (PHQ-9) PHQ-9 07/15/2022 07/27/2022 10/27/2022 Score 21 26 20 (0-4) minimal depression, (5-9) mild depression, (10-14) moderate depression, (15-19) moderately severe depression, (20-27) severe depression Mental Status Exam: General/Sensorium: Alert and & interactive and In moderate distress - Appearance: Appears well groomed and stated age - Eye Contact: Appropriate eye contact - Demeanor: Appropriately interactive, Superficially cooperative and Defensive/hostile - Motor Activity: Normal - Speech: Appropriate - Mood: Reports feeling depressed - Affect: Full range and Congruent with mood - Thought Process: Linear, logical, and goal-directed - Associations: Normal - Thought Content: Appropriate with no SI/HI/AVH, Perseverating on stressors, Obsessive thinking, Suicidal ideation, Talking about future goals or plans and Exfo-lhtisoy-uzha-rejecting - Perceptions: The patient does not appear internally stimulated - Cognition: Appears intact in regards to memory, attention/concentration, fund of knowledge and language skills and Issues with attention/concentration - Insight: Impaired - Judgment: Fair - SUMMARY IMPRESSION: This 21-year-old woman is here to establish care based on her nurse practitioner's recommendation that she get cognitive behavioral therapy. Patient has not followed through with recommendations to connect with the [facility] due to eating disordered issues. She denies this being a current issue. Patient is not forthcoming with this provider regarding information that is evident in her chart. She denies features such as suicidal ideation, and self-harm until she is confronted with her inconsistencies. Patient describes cyclical mood issues that she feels are not impacted by stressors, however make her more sensitive to stressors. Patient would benefit from IOP, and education regarding medication management. Patient will eventually benefit from long-term therapy, however currently she is not stable enough for that level of care. Patient [place] providers [place] asked to provide short-term therapy, and she has been recommended toseek therapy services through one of the referral sources she has been provided in the past throughMyChart. Therapist made a referral to IOP DIAGNOSIS: PRIMARY: 1: Mood Disorder Bipolar II Disorder Other: Anxiety Disorder Posttraumatic Stress Disorder - . Eating d/o NOS PROVISIONAL: None GOALS/OBJECTIVES/INTERVENTIONS: Patient and therapist completed assessment Therapist reviewed consent for treatment and policies which were sent prior to appointment Patient was encouraged to follow up with VIBRATING SCREEN OPERATOR and discuss concerns re medication Pt was encouraged to consider IOP Pt would be served by referral to retirement therapy after IOP EMIGDIO Tinoco documented in this encounterCenterville12-31-2022 Miscellaneous Notes* Telephone Encounter - Rachel Glynn - 10/03/2022 12:34 PM EST Patient given results and verbalized understanding of instructions given.de Rachel Glynn * Telephone Encounter - Jesika Stearns PA-C - 10/03/2022 10:40 AM EST Please let her know not to drink any alcohol while on the Flagyl, will make her very ill. The Diflucan sent in yesterday should take care of the yeast. If symptoms are persisting follow-up with METAL STAMPER. * Telephone Encounter - Radha Temple LPN - 10/03/2022 9:30 AM EST Patient wants the prescriptions sent to [facility].Radha Temple LPN * Telephone Encounter - Patricia Nuno APRN.CNP - 10/03/2022 7:58 AM EST Please notify patient that she was negative for gonorrhea and chlamydia and trichmonas. She was positive for BV and yeast. Needs prescriptions sent to pharmacy, need to know what pharmacy she wants these sent to. Please call and notify provider there today that these need sent in. Patricia Nuno APRN.CNP documented in this encounterCenterville12-30-2022 History of Present illness Narrative* Washington Goss APRN.CNP - 10/02/2022 4:46 PM EST Subjective HPI A nontoxic appearing female presents to urgent care with chief complaint of possible UTI. Duration of symptoms 4 days. Associated symptoms dysuria, frequency, and urgency. Has noticed some vaginal discomfort swelling and vaginal discharge. Describes discharge as white in color. Patient has history of UTIs in past with similar signs and symptoms. Has had a yeast infection in the past this feels similar. Patient denies the use of any nkjr-veb-hgrhqcx medications or home remedies for symptom management. Patient states pain is a 4/10. Patient denies any fevers, flank pain, abdominal pain, nausea,vomiting, vaginal discharge, or urological abnormalities. Past medical history prescription medication use allergies reviewed. .Patient presents with: Vaginal Problem: Urinary frequency, lower abd pain and pressure x4 days PAST MEDICAL HISTORY Diagnosis Date No pertinent past medical history UTI (urinary tract infection) PAST SURGICAL HISTORY Procedure Laterality Date EXTENSIVE JAW SURGERY ORTHOPEDICS SURGERY HX RECONSTRUCT CLEFT PALATE ALLERGIES Patient has no known allergies. MEDICATIONS hydrOXYzine HCl (ATARAX) 10 mg tablet hydrOXYzine pamoate (VISTARIL) 25 mg capsule Take 1 capsule by mouth once daily as needed. cetirizine (ZYRTEC) 10 mg tablet Take 1 tablet by mouth once daily. fluticasone (FLONASE ALLERGY RELIEF) 50 mcg/actuation nasal spray Instill 2 sprays in each nostril once daily. lamoTRIgine (LAMICTAL) 25 mg tablet Take 1 tablet by mouth once daily for 2 weeks, then increase to2 tablets (50mg) daily for 2 weeks. lamoTRIgine (LAMICTAL) 100 mg tablet Take 1 tablet by mouth once daily. zolpidem (AMBIEN) 5 mg tablet Take 1 tablet by mouth at bedtime as needed for insomnia for up to 30days. FAMILY HISTORY Problem Relation Age of Onset No Known Problems Mother No Known Problems Father No Known Problems Sister No Known Problems Brother No Known Problems Brother Social History Tobacco Use Smoking status: Never Smokeless tobacco: Never Vaping Use Vaping Use: Never used Substance Use Topics Alcohol use: Not Currently Comment: social Drug use: Never BP 122/82 Pulse 92 Temp 36.7 C (98 F) Resp 18 Wt 66.9 kg (147 lb 6.4 oz) LMP 09/04/2022 (Exact Date) SpO2 97% BMI 24.53 kg/m Review of Systems Constitutional: Negative for chills, fever and malaise/fatigue. HENT: Negative for congestion, ear discharge, ear pain, sinus pain and sore throat. Eyes: Negative for blurred vision, pain, discharge and redness. Respiratory: Negative for cough, hemoptysis, sputum production, shortness of breath, wheezing and stridor. Cardiovascular: Negative for chest pain. Gastrointestinal: Negative for abdominal pain, diarrhea, nausea and vomiting. Genitourinary: Positive for frequency. Negative for dysuria, flank pain, hematuria and urgency. Musculoskeletal: Negative for myalgias. Skin: Negative for itching and rash. Neurological: Negative for dizziness and headaches. Objective Physical Exam Exam conducted with a composition floor setter present. Constitutional: General: She is not in acute distress. Appearance: She is not diaphoretic. HENT: Head: Normocephalic. Mouth/Throat: Mouth: Mucous membranes are moist. Pharynx: Oropharynx is clear. No oropharyngeal exudate or posterior oropharyngeal erythema. Eyes: Conjunctiva/sclera: Conjunctivae normal. Pupils: Pupils are equal, round, and reactive to light. Cardiovascular: Rate and Rhythm: Normal rate and regular rhythm. Heart sounds: Normal heart sounds. Pulmonary: Effort: Pulmonary effort is normal. No tachypnea, accessory muscle usage or respiratory distress. Breath sounds: Normal breath sounds. No stridor. No wheezing, rhonchi or rales. Abdominal: General: There is no distension. Palpations: Abdomen is soft. Tenderness: There is no abdominal tenderness. There is no right CVA tenderness, left CVA tenderness, guarding or rebound. Genitourinary: Pubic Area: No rash. Labia: Right: No rash or tenderness. Left: No rash or tenderness. Vagina: No vaginal discharge. Musculoskeletal: Cervical back: Normal range of motion and neck supple. No rigidity or tenderness. Lymphadenopathy: Cervical: No cervical adenopathy. Lower Body: No right inguinal adenopathy. No left inguinal adenopathy. Skin: General: Skin is warm and dry. Neurological: Mental Status: She is alert and oriented to person, place, and time. ASSESSMENT/PLAN: 1. Urinary frequency - ICD9: 788.41, ICD10: R35.0 (primary diagnosis) - UA DIP, URINE (POC) - URINE CULTURE - HCG QUAL UR B/O 2. Vaginal discharge - ICD9: 623.5, ICD10: N89.8 - JOHN / TRICHOMONAS AMPLIFICATION - BACTERIAL VAGINOSIS AMPLIFICATION - GC/CHLAMYDIA DNA DET Placed on Diflucan today. History of yeast infections in the past this feels similar. placed on Diflucan. Will not take with Atarax or Vistaril no antibiotics prescribed at today's visit. Vaginal swabs obtained. Treating accordingly to test results. Patient was educated on supportive therapies. Patient will follow up with primary care provider as needed. Patient was instructed to immediately proceed to emergency room for any new, worsening, or symptoms lasting longer than anticipated. The patient's clinical presentationis otherwise unremarkable at this time. Based on exam and clinical finding, the patient is stable for discharge. Plan of care was discussed with patient. Patient verbalizes understanding and agrees to plan of care. This note was generated using [employer] software. It may contain errors in wording, punctuation, or spelling. Washington Goss APRN.VIRGEN documented in this encounterCenterville10-19-2022 History of Present illness Narrative* Wilver Montemayor DC - 07/22/2022 5:16 PM EDT This clinical note has been produced using speech recognition software and may contain errors related to that system including grammar, punctuation, spelling and words and phrases that may be inappropriate. SUBJECTIVE: A 21-year-old female presents to the office today with improved bilateral mid to lower thoracic spine pain tight stiff in nature 3/10 in severity. Patient denies headaches. Denies radicular symptoms. States that she has implemented desk ergonomics and driving ergonomics which have been b eneficial for pain relief as well. Patient states previous treatment palliative relief. OBJECTIVE: Patient is alert and oriented x3. No apparent distress. Skin is free of rash, bruising, no skin lesions or chief complaint. Hypertensin tenderness palpated at the bilateral thoracic spine paraspinals lumbar spine paraspinals quadratus lumborum. Decreased extension seen thoracic spine T6-T12. Orthopedic exam showed negative spine percussion negative Kemps. IMAGING: See epic ASSESSMENT: See diagnosis DIAGNOSIS: (M54.6, G89.29) Chronic bilateral thoracic back pain (primary encounter diagnosis) Prognosis: Patient progressing as expected to care PLAN: Manual therapy was performed today focusing on the bilateral thoracic spine paraspinals lumbar spine paraspinals quadratus lumborum. Gentle chiropractic mobilization was performed anterior posterior T8 and T12. Patient tolerated treatment well and will follow up as needed. Patient Goals: Goals are to continue to improve mobility within the area chief complaint. Electronically Signed: Wilver Montemayor DC July 22, 2022 5:16 PM documented in this encounterCenterville10-14-2022 Nurse Note* Kasia Blackmon MA - 07/17/2022 4:49 PM EDT INFLUENZA NJECTABLE VACCINATION Patient is identified by name and date of :YES Is patient age 65 or older:NO (If Yes - Will require High Dose Fluzone) Denies prior influenza vaccination this influenza season: NO Denies allergic reaction after a previous dose of influenza vaccine, or denies any severe life-threatening allergies:NO Not moderately or severely ill (fever not greater than 100.4F/38C):NO Denies history of Guillain-Cando Syndrome (a severe paralytic illness): NO Denies bone marrow transplant in prior 6 months or solid organ transplant in prior 3 months: NO Does the patient have visual changes, ringing in the ears and/or a history of fainting after a prior injection or medical procedure?:NO (If yes - please ask the patient to sit for 15 minutes after the vaccination) VIS discussed with patient with good understanding. See Immunization documentation for full details. Kasia Blackmon MA Patient informed of 15 minute hold post injection for safety. Patient sat for 15mins post injectionwithout incident. Kasia Blackmon MA * Torres Talamantes LPN - 07/17/2022 4:17 PM EDT Nata Penaloza is a 21 year old female here today for visit in Internal Medicine Patient has been identified by name and date of for verification purposes. Allergies have been reviewed and verified. They include the following: Patient has no known allergies. Health Maintenance has been reviewed and updated. MENINGOCOCCAL B: Consider based on risk(1 of 2 - Risk Bexsero 2-dose series) PEDS TO ADULT TRANSITION INITIAL DISCUSSION PEDS TO ADULT TRANSITION ANNUAL ASSESSMENT HEPATITIS C SCREENING HIV SCREENING DEPRESSION ASSESSMENT COVID-19 VACCINE(3 - Booster for Pfizer series) INFLUENZA(1) Pharmacy benefits have been run and correct pharmacy has been verified. Yes Medication - prescribed and OTC reviewed and updated: Yes Refills have been pended for physician review and filing. Yes Patient Accepted refills to be pended. Has the patient completed any recent labs / tests ordered by 0: Yes, Is the patient active on MyChart Yes What is the patients preferred method of communication: MyChart Torres Talamantes LPN documented in this encounterCenterville10-14-2022 History of Present illness Narrative* Hellen Paez MD - 07/17/2022 4:42 PM EDT 21F here for insomnia Hasn't been able to sleep due to anxiety. Constant worry. Fatigued throughout the day. Currently in a down phase with cyclothymia. Has not yet started lamictal Recurrent episodes of syncope, hasn't passed out since April, but does often feel LH when arising O: BP 130/80 Pulse 80 LMP 07/17/2022 (Exact Date) Gen: A&A NAD ASSESSMENT/PLAN: 1. Primary insomnia - ICD9: 307.42, ICD10: F51.01 (primary diagnosis) - Short course of ambien - Suspect would benefit from anxiety treatment with SSRI once mood stabilizer in place to prevent manic episodes - ZOLPIDEM 5 MG TABLET 2. Cyclothymia - ICD9: 301.13, ICD10: F34.0 - Encouraged to start lamictal 3. Recurrent syncope - ICD9: 780.2, ICD10: R55 - Suspect vasovagal syncope or some form of autonomic dysfunction - CONSULT TO SYNCOPE CLINIC 4. Chronic maxillary sinusitis - ICD9: 473.0, ICD10: J32.0 - CETIRIZINE 10 MG TABLET - FLUTICASONE PROPIONATE 50 MCG/ACTUATION NASAL SPRAY,SUSPENSION 5. Encounter for immunization - ICD9: V03.89, ICD10: Z23 - INFLUENZA VACCINE QUADRIVALENT 6 MO - 64 YRS IM Hellen Paez MD documented in this encounterCenterville10-13-2022 Instructions* Patient Instructions* Elysia Campbell APRN.CNP - 07/16/2022 4:31 PM EDT Plan: Swabs done today to evaluate discharge Recommend making sure emptying bladder completely Can try hot bath to help relax pelvic floor Elysia Campbell APRN.CNP documented in this encounterCenterville10-13-2022 History of Present illness Narrative* Elysia Campbell APRN.CNP - 07/16/2022 4:00 PM EDT Nata Penaloza is a 21 year old female who presents for problem visit frequent urination, dysuria for 3 days. HPI: Urinary - feels like she isn't emptying completely in the past week. Pain with urination has been off and on. Frequency and urgency. Some incontinence Has only had these symptoms with UTI in the past Period - last one was just light spotting for two days. At beginning of this month. 06/04 was last real period. Can be painful GI - No symptoms Long - no pain Has had some yellow discharge lately. Maybe some odor No concerns for STDs. Using condoms but accepts STD testing First sexually active at the beginning of this month. 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 History Comments: Sexual Activity: Not Currently; Male Contraception: Condom PAST MEDICAL HISTORY Diagnosis Date No pertinent past medical history UTI (urinary tract infection) PAST SURGICAL HISTORY Procedure Laterality Date EXTENSIVE JAW SURGERY ORTHOPEDICS SURGERY HX RECONSTRUCT CLEFT PALATE FAMILY HISTORY Problem Relation Age of Onset No Known Problems Mother No Known Problems Father No Known Problems Sister No Known Problems Brother No Known Problems Brother Social History Tobacco Use Smoking status: Never Smokeless tobacco: Never Vaping Use Vaping Use: Never used Substance Use Topics Alcohol use: Not Currently Comment: social Drug use: Never Current Outpatient Medications Medication Sig hydrOXYzine HCl (ATARAX) 10 mg tablet Take 1 tablet by mouth twice daily as needed for anxiety/panic attacks lamoTRIgine (LAMICTAL) 25 mg tablet Take 1 tablet by mouth once daily for 2 weeks, then increase to2 tablets (50mg) daily for 2 weeks. lamoTRIgine (LAMICTAL) 100 mg tablet Take 1 tablet by mouth once daily. fluticasone (FLONASE ALLERGY RELIEF) 50 mcg/actuation nasal spray Instill 2 sprays in each nostril once daily. cetirizine (ZYRTEC) 10 mg tablet Take 1 tablet by mouth once daily. sodium chloride 0.65 % drop Use 1 [place] in the nose. (Patient not taking: Reported on 04/21/2022 ) No current facility-administered medications for this visit. Allergies As of Date: 07/16/2022 (No Known Allergies) Fully Assessed 07/08/2022 REVIEW OF SYSTEMS Abdomen: No bloating, early satiety, indigestion, or increased flatulence. No abdominal pain, nausea, vomiting, diarrhea, or constipation. Bladder: No dysuria, gross hematuria, urinary frequency, urinary urgency, or incontinence. Breast: No breast lumps, nipple d/c, overlying skin changes, redness or skin retraction. Expanded ROS: N/A Allergies and current medication updated:Yes EXAM: BP 118/80 Ht 5' 5" (1.65m) Wt 155 lb 3.2 oz (70.4kg) LMP 06/05/2022 BMI 25.83 kg/(m^2). GENERAL: pleasant, female in no apparent distress HEENT: Normocephalic and atraumatic NECK: Supple and full range of motion DERMATOLOGY: Normal and without lesions BREAST: deferred CHEST: Normal inspiratory effort ABDOMEN: soft, non-tender, and no masses PELVIC: external genitalia normal, normal Bartholin's glands, urethra, [place]'s glands, no vulvar lesions, no cervical lesions, good vaginal support, physiologic discharge present, normal appearing perineal body and perianal region, Thick white discharge noted on exam BIMANUAL: uterus normal size, shape and consistency, no adnexal masses, non- tender, no cervical motion tenderness, and high tone pelvic floor noted NEURO: alert and oriented x3,exam grossly non-focal EXTREMITIES: normal ASSESSMENT AND PLAN: Encounter Diagnosis ICD-10-CM 1. Urinary urgency R39.15 HCG QUAL UR B/O 2. Feeling of incomplete bladder emptying R39.14 HCG QUAL UR B/O 3. Vaginal discharge N89.8 JOHN / TRICHOMONAS AMPLIFICATION BACTERIAL VAGINOSIS AMPLIFICATION GC/CHLAMYDIA DNA DET 4. Vaginal odor N89.8 JOHN / TRICHOMONAS AMPLIFICATION BACTERIAL VAGINOSIS AMPLIFICATION GC/CHLAMYDIA DNA DET 5. Urinary frequency R35.0 Swabs done today to evaluate discharge Recommend making sure emptying bladder completely Can try hot bath to help relax pelvic floor Elysia Campbell APRN.VIRGEN Medical Decision Making: Problems: Low: Acute, uncomplicated illness or injury Data: Unique test(s) ordered: 3+ Risk: Low: Low risk from testing/treatment Medical Decision Making Level: 3 - Low documented in this encounterCenterville10-05-2022 History of Present illness Narrative* Wilver Montemayor DC - 07/08/2022 3:34 PM EDT This clinical note has been produced using speech recognition software and may contain errors related to that system including grammar, punctuation, spelling and words and phrases that may be inappropriate. SUBJECTIVE: A 21-year-old female presents into the office today with continued chronic bilateral thoracic spine pain tight tense in nature 9/10 in severity coupled with bilateral lumbosacral pain stiff tight as well. Patient has previous treatment palliative relief. OBJECTIVE: Patient is alert and oriented x3. No apparent distress. Skin is free of rash, bruising, skin lesions or chief complaint. Orthopedic exam is negative spine percussion negative maximum compression negative Kemps. Hypertensin tenderness palpated bilateral trapezius levator scapulae thoracicand lumbar spine paraspinals. Decreased tenderness in thoracic spine T2-T4 and thoracolumbar junction. Decreased posterior anterior mobilization seen left sacroiliac joint. IMAGING: See epic ASSESSMENT: See diagnosis DIAGNOSIS: (M54.6, G89.29) Chronic bilateral thoracic back pain (primary encounter diagnosis) (M54.50, G89.29) Chronic bilateral 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 sciatica Prognosis: Patient progressing as expected through care PLAN: Manual therapy was performed today focusing bilateral trapezius levator scapulae thoracic spine paraspinals lumbar spine paraspinals. Gentle chiropractic mobilization was performed with lumbar spine distraction mobilization, anterior posterior T2 T4 and thoracolumbar junction and left sacroiliac joint side-lying. Patient was advised continue at home exercises previously given. Patient tolerated treatment well and will follow up in 1 to 2 weeks. Patient Goals: Goals are to continue to improve activity living pain-free. Electronically Signed: Wilver Montemayor DC July 08, 2022 3:34 PM documented in this encounterCenterville09-30-2022 History of Present illness Narrative* Giovanny Duncan, RT(R) - 07/03/2022 3:00 PM EDT Radiology Service Progress Note PATIENT NAME: Nata Penaloza DATE OF SERVICE: July 03, 2022 TIME: 12:27 PM PATIENT IDENTITY VERIFICATION COMPLETED USING TWO (2) IDENTIFIERS: Name and Date of confirmedby patient verbally. FALL SCREENING: Has the patient had 2 falls in the last year or 1 fall with injury or currently using an Ambulatory Assistive Device (Walker, Cane, Wheelchair, Crutches, etc.)? No PATIENT GENDER DATA: Female. status: : No status: NO. PATIENT RELEVANT IMPLANT DATA REVIEWED: Not Applicable RADIOLOGY DEPARTMENT: General X-ray: Exam(s) Completed: Spine X-Ray(s): Thoracic PERIPHERAL IV DATA: Not applicable SIGNED BY: RT Shawn(R) July 03, 2022 12:27 PM documented in this encounterCenterville09-28-2022 History of Present illness Narrative* Wilver Montemayor DC - 07/01/2022 5:15 PM EDT This clinical note has been produced using speech recognition software and may contain errors related to that system including grammar, punctuation, spelling and words and phrases that may be inappropriate. NEW PATIENT HISTORY AND PHYSICAL EXAMINATION CHIEF COMPLAINT: Bilateral chronic thoracic spine pain HISTORY OF PRESENT ILLNESS: Nata Penaloza is a 21 year old female who presents with bilateral chronic thoracic spine pain which is been ongoing for more than 2 years with recent exacerbation. Tight tense sore pain seen most on the towards end of the day coupled with bilateral temporal headaches most notably towards end of the day as well. Pain is currently 8/10 in severity palliative response to bracing with stretching however temporary provocative activities will include excessive use at work. PAST MEDICAL HISTORY Diagnosis Date No pertinent past medical history UTI (urinary tract infection) MEDICATIONS: hydrOXYzine HCl (ATARAX) 10 mg tablet Take 1 tablet by mouth twice daily as needed for anxiety/panic attacks lamoTRIgine (LAMICTAL) 25 mg tablet Take 1 tablet by mouth once daily for 2 weeks, then increase to2 tablets (50mg) daily for 2 weeks. lamoTRIgine (LAMICTAL) 100 mg tablet Take 1 tablet by mouth once daily. fluticasone (FLONASE ALLERGY RELIEF) 50 mcg/actuation nasal spray Instill 2 sprays in each nostril once daily. cetirizine (ZYRTEC) 10 mg tablet Take 1 tablet by mouth once daily. sodium chloride 0.65 % drop Use 1 [place] in the nose. (Patient not taking: Reported on 04/21/2022 ) ALLERGIES: ALLERGIES No Known Allergies Social History Tobacco Use Smoking status: Never Smokeless tobacco: Never Vaping Use Vaping Use: Never used Substance Use Topics Alcohol use: Not Currently Comment: social Drug use: Never FAMILY HISTORY Problem Relation Age of Onset No Known Problems Mother No Known Problems Father No Known Problems Sister No Known Problems Brother No Known Problems Brother REVIEW OF SYSTEMS: Patient denies any chest pain, shortness of breath, difficulty breathing, unexplained weight gain, weight loss, fevers, chills, night sweats, recent infection, illness, nausea, vomiting, dizziness, vertigo, diarrhea. PHYSICAL EXAMINATION: LMP 04/01/2022 Patient is alert and oriented x3. No apparent distress. Skin is free of rash, bruising, no skin lesions or chief complaint. Deep tendon reflexes upper lower extremity within normal limits. Myotomal exam of the upper lower extremity within within normal limits full strength. Dermatomal exam of the upper lower extremity within the limits full sensation. Orthopedic exam showed negative Valsalva negative Garrett's negative spinal percussion negative back spinal compression negative Kemps. Cervical spine active range of motion stiff type pain with allrange of motion bilateral cervical thoracic junction. Thoracic spine active range of motion of the p alliative response with extension and decreased mobilization seen T2-T6. Palliative responsive cervical spine distraction mobilization. Hypertensin tenderness palpated the bilateral trapezius levatorscapula lumbar spine paraspinals rhomboids. Right scapular deviation with midline along with hiking noted when comparative to left. ADDITIONAL DATA: See epic ASSESSMENT: See diagnosis DIAGNOSIS: (M54.6, G89.29) Chronic bilateral thoracic back pain (primary encounter diagnosis) PLAN: I spent a total of 35 minutes on the date of the service which included preparing to see the patient, [id number] patient care, completing clinical documentation, performing a medically appropriate examination, and counseling and educating the patient/family/caregiver. Manual therapy was performed today focusing on the bilateral trapezius levator scapula thoracic spine paraspinals rhomboids and splenius. Gentle chiropractic mobilization was performed cervical spinedistraction and thoracic spine extension mobilization while seated. At home exercises were given focusing on face pulls middle and lower trapezius activation exercisesand serratus activation with appropriate verbal tactile and timing cues given. Thoracic spine x-rays to be ordered to further investigate the area of chief complaint. Patient tolerating well we will follow-up in 1 week. Patient Goals: Goals are to improve scapular cervical complex for long-term care. Electronically Signed: Wilver Montemayor DC July 01, 2022 5:15 PM documented in this encounterCenterville07-12-2022 History of Present illness Narrative* Carmen Ramirez MD - 04/14/2022 3:29 PM EDT OTOLARYNGOLOGY-HEAD AND NECK SURGERY CC: Nata Penaloza is a 21 year old female who is self referred for chronic sinusitis. Assessment: Allergic rhinitis, unspecified seasonality, unspecified trigger (primary encounter diagnosis) Dysfunction of both eustachian tubes Plan: - Recommend Astelin spray in addition to her Flonase and zyrtec - Recommend allergy consult and possible testing - Follow up in 3 months, sooner if needed with audiogram same day Brittni Hamilton MD for the service of Carmen Ramirez MD HPI: 21 year old female with history of cleft palate s/p repair during childhood, history of ear tubes, history of mandibular advancement surgery, presenting due to chronic sinusitis and ear scarring. Endorses green colored mucus/post nasal drip, sometimes blood tinged, which is increased in the [place]. Sinusitis has been going on chronically, usually worse at this time of the year. Uses Flonaseand zyrtec daily. Saw PCP who looked in her ears and was concerned about some scarring. Endorses increased ear clogging and pressure recently. ALLERGIES No Known Allergies Current Outpatient Medications Medication Sig Desogestrel-Ethinyl Estradiol (RECLIPSEN, 28,) 0.15-0.03 mg per tablet Take 1 tablet by mouth once daily. ulipristal acetate (YAMILETH) 30 mg tablet Take 1 tablet by mouth one time only for 1 dose. fluticasone (FLONASE ALLERGY RELIEF) 50 mcg/actuation nasal spray Instill 2 sprays in each nostril once daily. cetirizine (ZYRTEC) 10 mg tablet Take 1 tablet by mouth once daily. sodium chloride 0.65 % drop Use 1 [place] in the nose. montelukast (SINGULAIR) 10 mg tablet Take by mouth. No current facility-administered medications for this visit. PAST MEDICAL HISTORY Diagnosis Date No pertinent past medical history UTI (urinary tract infection) PAST SURGICAL HISTORY Procedure Laterality Date EXTENSIVE JAW SURGERY ORTHOPEDICS SURGERY HX RECONSTRUCT CLEFT PALATE Social History: Social History Tobacco Use Smoking status: Never Smoker Smokeless tobacco: Never Used Vaping Use Vaping Use: Never used Substance Use Topics Alcohol use: Yes Comment: social Drug use: Never FAMILY HISTORY Problem Relation Age of Onset No Known Problems Mother No Known Problems Father No Known Problems Sister No Known Problems Brother No Known Problems Brother ROS: GENERAL: No weight loss, malaise or fevers. HEENT: Negative for frequent or significant headaches, No changes in hearing or vision, No sore throat or change in voice, See HPI NECK: Negative for lumps, goiter, pain and significant neck swelling RESPIRATORY: Negative for cough, hemoptysis, wheezing or shortness of breath CARDIOVASCULAR: Negative for chest pain, leg swelling or palpitations. GASTROINTESTINAL: No nausea, vomiting, or diarrhea MUSCULOSKELETAL: Negative for joint pain or swelling, back pain or muscle pain. NEUROLOGIC: Negative for focal numbness or weakness, headaches and dizziness or syncope. SKIN: Negative for lesions, rash, and itching. HEMATOLOGIC/LYMPHATIC/IMMUNOLOGIC: Negative for prolonged bleeding, bruising easily or swollen nodes. ENDOCRINE: Negative for cold or heat intolerance, polyuria, polydipsia and goiter. PHYSICAL EXAM: On physical examination Nata Penaloza is a well-developed, well nourished female. Her speech is clear,and her voice is nasal tone but strong. Mental status revealed patient to be alert and oriented. Mood is appropriate. Details of the physical examination: CRANIAL NERVE EXAM: II: Pupillary reflexes normal III, IV, : EOM normal V: 1,2,3: normal sensation VII: Normal strength in all divisions. VIII: Hearing grossly normal. IX, X: Strong voice, palatal elevation and sensation XI: Shoulder strength normal XII: Tongue mobility normal HEAD AND FACE: Physical examination of the head, neck, external nose, external ears, mouth and facefails to demonstrate any significant abnormality or asymmetry to critical face to face observation.Skin and scalp are normal. EARS: RT Canal: patent RT Drum: intact with posterior scar tissue RT Pneumotoscopy: immobile LT Canal: patent LT Drum: intact LT Pneumotoscopy: mobile NOSE: Examination of the nasal cavity revealed a septum which is deviated. The mucosa is pink/busby,and the visible turbinates are boggy on anterior rhinoscopy. There is no purulence or polyps. MASTICATION: The teeth appear healthy. The lips and gums are without lesions. ORAL CAVITY AND OROPHARYNX: The oral mucosa, hard and soft palates, tongue, tonsil area, and posterior pharyngeal wall are without lesions. NECK: The neck appears symmetric without scars. On palpation, there are no masses or lymphadenopathy. The thyroid is not palpable and was free of masses. No salivary gland masses or hypertrophy is noted. PROCEDURE: Nasal Endoscopy PREOPERATIVE DIAGNOSIS: sinusitis POSTOPERATIVE DIAGNOSIS: same INDICATIONS: Sinusitis PROCEDURE: Topical anesthesia and vasoconstriction was applied with spray to the right and left side(s) of the nose. After waiting an appropriate period of time for anesthesia/vasoconstriction to become effective, the nose was examined with the flexible endoscope. FINDINGS: The left nasal vestibule was examined first. The mucosa appeared boggy and edematous. Theleft inferior and middle turbinates appeared boggy. No purulence or excessive drainage seen. There were no other lesions or masses seen in the left nasal cavity. The right nasal vestibule was then examined. The mucosa also appeared boggy. The right inferior and middle turbinates appeared boggy. No purulence visualized on the right side. There were no other lesions or masses seen in the right nasal cavity. Pt tolerated the procedure well, and there were no complications. The procedure was performed by Dr. Hamilton. Brittni Hamilton MD for the service of Carmen Ramirez MD April 14, 2022 I was physically present during the entire procedure including insertion and removal of scope. I participated in the history and physical exam of Nata Penaloza. I discussed the management of Nata Penaloza with the resident. I reviewed the resident's note and agree with the documented findings and plan of care. Carmen Ramirez MD Medical Decision Making: Problems: Moderate: 1+ chronic illnesses with change Risk: Moderate: Drug management Medical Decision Making Level: 4 - Moderate documented in this encounterCenterville07-12-2022 Nurse Note* Tori Garcia RN - 04/14/2022 3:06 PM EDT Tobacco Use: Never Was smoking cessation packet given? N/A - Patient is a non-smoker or quit >1 year ago. Was a referral initiated?N/A Patient is a non-smoker documented in this encounterCenterville07-12-2022 History of Present illness Narrative* Lois Petersen MA - 04/14/2022 10:41 AM EDT POPULATION HEALTH NAVIGATION OUTREACH Action/FYI April 14, 2022 Spoke with patient. We have scheduled her [facility] follow up with Maxine Zhu MD on 04.21.2022 Thank you Pt identified by name and : YES, via phone Outreach Outcome/Action Spoke to patient or caregiver: Patient scheduled Did you use a PCP flex slot to schedule this appointment? 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 [employer] / Plan: EHP STAFF/NON STAFF / Product Type: EPO / Care Gap Reviewed:: Follow-up appointment Reminder: Reminder note to check Health Maintenance for items below Health Maintenance items due: MENINGOCOCCAL B: Consider based on risk(1 of 2 - Risk Bexsero 2-dose series) Never done GC (GONORRHEA) SCREENING (18-24) Never done HEPATITIS C SCREENING Never done HIV SCREENING Never done CHLAMYDIA SCREENING (18-24) Never done COVID-19 VACCINE(3 - Booster for Pfizer series) due on 01/20/2022 Message Sent to Practice: No Navigation Signature: Lois Petersen MA April 14, 2022 10:41 AM * Frida Champagne RN - 04/13/2022 2:56 PM EDT TRANSITIONAL CARE MANAGEMENT (TCM) COMMUNITY MONITORING PROGRAM Provider Action/FYI: 2nd Outreach attempt, spoke to patient and she is doing better, she went back to work today and is doing good, no questions/concerns at this time Pt NEEDS f/u with PCP, "TCM Eligible through 04/26" will forward to pharmacy scheduler SUMMARY: Pt discharged from [facility] on 04/12/22. Admitted for: Syncope/Nausea Contact made with patient: Yes Hi my name is Frida Champagne RN and I am calling from the [place] on behalf of your PCP, Hellen Paez MD I understand you were recently in the hospital so I am calling to check in with you to ensure you are feeling well now that you're home. May I ask you a few questions related to yourhospital stay and well-being? Yes Contact with patient post discharge, spoke to patient. Patient identified by name and . Do you feel your health is BETTER, WORSE, or the SAME since leaving the hospital? Better ACTION TAKEN: Patient indicated symptoms are better or same, no action required. Continue outreach. MEDICATIONS: Many patients have questions or concerns about their medications once they are home. Do you have any questions about taking your medications or which medication you should be on? No Do you need any medication refills at this time, including any of the medications you might take only when needed? No ACTION TAKEN: No action required For RNs or Pharmacy completing outreach ONLY, was a medication review completed? Yes SOCIAL: We would like to make sure you have what you need so that your basics needs are met - including your personal safety, food, housing and medications. Would you like to speak with a social work operations team leader to help give you support for any of these needs? No It can be normal to feel anxious or down during a time like this. Would you like to talk to a mental health professional about how you have been feeling? No ACTION TAKEN: No action taken DISCHARGE INTRUCTIONS: Your discharge instructions / After Visit Summary (AVS) are important in guiding you through the recovery process. Do you have any questions related to your discharge instructions? No Do you have all the necessary equipment and supplies at home? Yes ACTION TAKEN: No action required I would like to help you schedule a hospital follow-up virtual or telephone visit with your PCP. This is a great way for you to connect with your provider to ensure you have safely transitioned home.If you are agreeable, I will send your request to a pharmacy scheduler who will contact and assist you with that appointment. This will give you an opportunity to ask any questions or address any concerns youmay have with your PCP. Inform the patient that if they have any questions or concerns prior to that appointment, to call their PCP's office right away. ACTION TAKEN: Patient desires an appointment - Routed to COMMUNITY MONITORING PSS POOL [[phone]] for schedulingtelehealth visit (telephonic, virtual visit, or Facetime) within 7 days of discharge with PCP care team. Indicate hospital follow-up appointment needed within 7 days in Provider/FYI box. End Outreach. Your doctor would like us to remind you of the recommendations regarding the coronavirus (Covid19) outbreak: Avoid public places as much as possible. Avoid close contact (within 6 feet) with others you don t live with, especially if they are sick. Stay home if you are sick. Wash your hands regularly for at least 20 seconds with soap and water. Wear a cloth mask in public places to help reduce community spread. Do not go to your Doctor s office unless instructed to do so. For any non- emergency symptoms, call your Doctor s office to get instructions on how to manage (we might recommend a telephone or virtualvisit). For emergency symptoms, proceed to Emergency Department as usual but inform them of cough and fever symptoms LETY if present (or call on the way if possible). TRANSITIONAL CARE MANAGEMENT (TCM) COMMUNITY MONITORING PROGRAM Provider Action/FYI: Initial outreach - LVM Needs PCP follow up SUMMARY: Pt discharged from [facility] on 04/12/22. Admitted for: Syncope/Nausea Contact made with patient: No - next outreach attempt will be on next Argelia, gladys is Roxie dunlap registered nurse health care facility administrator calling from the [facility] on behalf of your primary care providers office. We are calling to follow up with you after your most recent hospital stay. We are sorry we missed you, but your care is important to us. We will attempt to reach you one moretime tomorrow. Please take a moment to answer our calls. If you have any questions or concerns prior to our next outreach, please contact your primary care provider s office. Please do not return calls to the incoming number, it is not a monitored line and calls will not bereturned. Outreach ended TCM Home Visit Referral Source of Stratification: [facility] Admission Status: Discharged Readmission Risk Score: 8 IRENE Score: 2 Program referral criteria met: Does not meet referral criteria Patient does not qualify for High Risk TCM Home Visit program due to: Does not meet referral criteria Patient does not quality for High Risk TCM Home Visit Program due to: Does not meet referral criteria Preferred contact number: NA Is patient staying somewhere other than the listed home address: No Dialysis Patient: No documented in this encounterCenterville07-08-2022 History of Present illness Narrative* Luana Nevarez APRN.CNP - 04/10/2022 5:56 PM EDT Pt presented to EC c/o nausea and vomiting as well as passing out multiple times this week. Pt has lost approx 5 lbs since last visit 9 days ago. Pt deny any concern for . No urinary symptoms, was recently treated for a UTI. No diarrhea. Pt discussed these symptoms with her PCP last week and again via mychart yesterday when she was told to present to EC. DUe to inability to perform ECG or labs recommend patient present to ED and she agrees. Luana Nevarez APRN.VIRGEN documented in this encounterCenterville07-06-2022 History of Present illness Narrative* Maxine Dewitt APRN.CNP - 04/08/2022 11:30 AM EDT Images from the original note were not included. [facility] [place] Department of Benign Gynecology [facility] PATIENT NAME: Nata Penaloza DATE: 04/08/2022 Patient Name and verified: Yes Patient Location: [place] This Virtual Visit was completed using My Chart Zoom platform. Chief Complaint CC: control follow up History of Present Illness: Nata Penaloza is a 21 year old female here for follow up after new OCP start. She started Apri 3 months ago. Overall, she is satisfied with the OCP. Reports things are "going good". She has noticed her appetite has decreased slightly. Wonders if this is related to OCP. Has not been eating as much. She has lost 10lbs. No other new medications. Parents are getting - this is new, having some stress. Other than weight loss (?related to OCP) has not had any side effects. She is not currently sexually active. She does not have plans to become sexually active. She is on 5th floor in [facility] [employer] - Rheumatology. 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 LMP: 02/21/2022 (Approximate), Having periods Age at Menarche: 15 Age at First : Age at Menopause: Revenue Accounting Manager History Comments: Sexual Activity: Not Currently; Male Contraception: Condom Past Medical History: PAST MEDICAL HISTORY Diagnosis Date No pertinent past medical history Family History: Family History Problem Relation Age of Onset No Known Problems Mother No Known Problems Father No Known Problems Sister No Known Problems Brother No Known Problems Brother Past Surgical History: PAST SURGICAL HISTORY Procedure Laterality Date EXTENSIVE JAW SURGERY RECONSTRUCT CLEFT PALATE Social History: Social History Tobacco Use Smoking status: Never Smoker Smokeless tobacco: Never Used Substance Use Topics Alcohol use: Not Currently Drug use: Never Allergies: ALLERGIES No Known Allergies Allergies updated: Yes Medications: Current Outpatient Medications Medication Sig Desogestrel-Ethinyl Estradiol (RECLIPSEN, 28,) 0.15-0.03 mg per tablet Take 1 tablet by mouth once daily. ulipristal acetate (YAMILETH) 30 mg tablet Take 1 tablet by mouth one time only for 1 dose. fluticasone (FLONASE ALLERGY RELIEF) 50 mcg/actuation nasal spray Instill 2 sprays in each nostril once daily. cetirizine (ZYRTEC) 10 mg tablet Take 1 tablet by mouth once daily. phenazopyridine (PYRIDIUM, GERIDIUM) 100 mg tablet Take 2 tablets by mouth three times daily as needed. (Patient not taking: Reported on 03/31/2022 ) sodium chloride 0.65 % drop Use 1 [place] in the nose. montelukast (SINGULAIR) 10 mg tablet Take by mouth. No current facility-administered medications for this visit. Medications reviewed in detail and updated PRN. Yes Physical Exam: LMP 02/21/2022 (Approximate) Gen: NAD, appears well Physical exam otherwise deferred Recent labs/Diagnostic studies: I have thoroughly reviewed this patients previous notes, encounters, labs, and results prior to this visit. Assessment and Plan Encounter Diagnosis ICD-10-CM 1. Emergency contraception Z78.9 ulipristal acetate (YAMILETH) 30 mg tablet 2. Encounter for initial prescription of contraceptive pills Z30.011 Desogestrel-Ethinyl Estradiol (RECLIPSEN, 28,) 0.15-0.03 mg per tablet 3. Decreased appetite R63.0 4. History of recent stressful life event Z86.59 1) Discussed options at length. Patient most interested in trial of stopping RODNEY x2 months to see if appetite returns. If she noticed no change in symptoms, will have eliminated RODNEY as likely source and will restart & send me message. 2) If appetite improves off RODNEY, she will schedule VV follow up to discuss starting alternate RODNEY vs IUD. 3) Emergency contraceptive Rx given so she may have on hand if needed. Plans to use condoms should she become sexually active. 4) Follow up PRN and for annual CANINE DEPUTY exams The following approved medication requests have been transmitted electronically. Signed Prescriptions Disp Refills Desogestrel-Ethinyl Estradiol (RECLIPSEN, 28,) 0.15-0.03 mg per tablet 84 tablet 4 Sig: Take 1 tablet by mouth once daily. RONY: No ulipristal acetate (YAMILETH) 30 mg tablet 1 tablet 5 Sig: Take 1 tablet by mouth one time only for 1 dose. Pharmacy Information Pharmacy Address Telephone [facility] [address] [address] SIGNATURE: Maxine Dewitt APRN.CNP PAGER: [phone] Medical Decision Making: Problems: Moderate: 1+ chronic illnesses with change Risk: Moderate: Drug management Medical Decision Making Level: 4 - Moderate documented in this encounterCenterville06-28-2022 Instructions* Patient Instructions* Angela Ray MD - 03/31/2022 4:22 PM EDT Thank you for coming in today! It was a [facility] to see you at [facility] today. Before your next appointment, please make note of the following: - drink minimum of 90-100 oz of water per day - try to eat closer to 3-5 meals per day, can be smaller meals - for sinus congestion, use saline rinses twice a day (NeilMed Sinus Rinse or the generic version),follow it with flonase 2 sprays each nostril twice a day. Add cetirizine pill daily. How to access care: - To reach office, call [phone] during business hours. - To schedule an appointment or with after hours health concerns, call scheduling at [phone]. - Schedule specialty appointments, call [phone] ([phone]) - For non-urgent questions and medications refills, please send me a [email or web address] message and allow 3 business days for a response or call [phone] - Labs can be done at any [facility] location, orders are active for 1 month Angela Ray MD Internal Medicine and Pediatrics Staff 03/31/22 4:23 PM documented in this encounterCenterville06-28-2022 History of Present illness Narrative* Angela Ray MD - 03/31/2022 4:07 PM EDT [facility] - [facility] 03/31/2022 This is a 21 year old female who presents for the following: PMHx: - cleft lip/palate s/p repair - recurrent AOM with R TM perforation IMPRESSIONS AND PLANS: ASSESSMENT/PLAN: 1. Wellness examination - ICD9: V70.0, ICD10: Z00.00 (primary diagnosis) - Counseled on healthy diet and regular exercise - Depression screening tool completed and reviewed with patient. Based on score and interview, patient is at risk for depression and recommended counseling/psychology referral. 2. Chronic maxillary sinusitis - ICD9: 473.0, ICD10: J32.0 - establishing with ENT next week - FLUTICASONE PROPIONATE 50 MCG/ACTUATION NASAL SPRAY,SUSPENSION - CETIRIZINE 10 MG TABLET 3. 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 Velopharyngeal insufficiency, congenital - ICD9: 750.29, ICD10: Q38.8 5. Cleft palate, unspecified - ICD9: 749.00, ICD10: Q35.9 6. Chronic midline 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 sciatica - ICD9: 724.2, 338.29, ICD10: M54.50, G89.29 - no alarm symptoms, no evidence of radiculopathy - discussed conservative tx and exercises 7. Vasovagal syncope - ICD9: 780.2, ICD10: R55 - suspect combination of vasovagal and orthostasis; orthostatics in our office were WNL Orthostatic BP 131/84 143/83 131/84 BP Site Left Arm Left Arm Left Arm BP Position Supine Sitting Standing BP Cuff Size Regular Adult Regular Adult Regular Adult Orthostatic Pulse 74 79 77 - discussed importance of staying well hydrated and eating meals regularly Angela Ray MD The reasons for the appointment include: Patient presents with: Establish Care HISTORY OF PRESENT ILLNESS: Low appetite x a few months - worried caused by COCPs she recently started at 8pm - nausea sometimes in the morning, but thinks that's related to sinus congestion - weight 172lb to 169lb - currently eating 2 meals per day, no vomiting - has normal BMs, goes a few times a week, reports bristol 3; denies change in how she feels after having BM and doesn't - L sided abd pain sometimes after dinner - home life has also been stressful; parents are and she is oldest of 3 kids Syncope - has presyncope frequently when standing up and walking around, has been going on for a few years - syncope happened when brushing teeth a few weeks ago, did feel prodrome w/ stomach dropping and vision graying out Blurry vision - randomly gets blurry where she can't see that well - happens a few times a week, lasts for a few seconds, stops if closes eyes and focuses - doesn't wear glasses or contacts, doesn't remember last time she had vision checked prob >5 years ago Lower and middle back pain - reports 10/10 all the time every day, ongoing for a few years, worst at end of the day - [facility] - sometimes travels up to top of back but most of the time just in back, doesn't go down leg at all - denies h/o trauma to back, car accidents; played volleyball and soccer for a year when younger - no numbness or tingling in legs, urinary incontinence, bowel incontinence, saddle anesthesia - goes to gym 1-2x per week Sinus congestion - Ears get clogged w/ decreased hearing, worse recently; denies tinnitus; prev h/o frequent ear infections - in the mornings is worst w/ mucous drainage - currently using flonase every morning PHQ9 score 7, marked not difficult at all - Reports mood has been ok, better recently - worried COCPs are contributing - has longstanding lower mood that has never gone away 100%, was very depressed when she was 14-15 yo, went to therapy which wasn't helpful ALLERGIES: ALLERGIES No Known Allergies The medications at the beginning of the encounter were reviewed: Current Outpatient Medications Medication Sig fluticasone (FLONASE ALLERGY RELIEF) 50 mcg/actuation nasal spray Instill 2 sprays in each nostril twice daily. Desogestrel-Ethinyl Estradiol (RECLIPSEN, 28,) 0.15-0.03 mg per tablet Take 1 tablet by mouth once daily. sodium chloride 0.65 % drop Use 1 [place] in the nose. montelukast (SINGULAIR) 10 mg tablet Take by mouth. cetirizine (ZYRTEC) 10 mg tablet Take 1 tablet by mouth once daily. phenazopyridine (PYRIDIUM, GERIDIUM) 100 mg tablet Take 2 tablets by mouth three times daily as needed. (Patient not taking: Reported on 03/31/2022 ) No current facility-administered medications for this visit. PAST MEDICAL, SURGICAL, FAMILY AND SOCIAL HISTORY HISTORIES FAMILY HISTORY Problem Relation Age of Onset No Known Problems Mother No Known Problems Father No Known Problems Sister No Known Problems Brother No Known Problems Brother PAST MEDICAL HISTORY Diagnosis Date No pertinent past medical history PAST SURGICAL HISTORY Procedure Laterality Date EXTENSIVE JAW SURGERY RECONSTRUCT CLEFT PALATE Social History Tobacco Use Smoking status: Never Smoker Smokeless tobacco: Never Used Substance Use Topics Alcohol use: Not Currently Drug use: Never REVIEW OF SYSTEMS Pain assessment: + for pain (see HPI) General: no weight loss, fever, chills ENT: No rhinorrhea, congestion Respiratory: No cough, shortness of breath Cardiovascular: No chest pain, dyspnea on exertion, LE edema GI: No nausea, vomiting, diarrhea, constipation : No dysuria, hematuria Skin: Negative for rash Neuro: No weakness, numbness HEALTH MAINTENANCE MENINGOCOCCAL B: Consider based on risk(1 of 2 - Risk Bexsero 2-dose series) Never done PEDS TO ADULT TRANSITION INITIAL DISCUSSION Never done PEDS TO ADULT TRANSITION ANNUAL ASSESSMENT Never done GC (GONORRHEA) SCREENING (18-24) Never done HEPATITIS C SCREENING Never done HIV SCREENING Never done CHLAMYDIA SCREENING (18-24) Never done COVID-19 VACCINE(3 - Booster for Pfizer series) due on 01/20/2022 DEPRESSION SCREENING due on 03/22/2023 DTAP,TDAP,TD(7 - Td or Tdap) due on 05/15/2025 HPV VACCINE Completed INFLUENZA Completed MENINGOCOCCAL CONJUGATE Completed PHYSICAL EXAM: Vital signs: BP 140/88 Pulse 89 Ht 5' 3.976" (1.63m) Wt 169 lb 14.4 oz (77.1kg) LMP 01/31/2022 BMI 29.18 kg/(m^2). General appearance: Well appearing, alert, in NAD Head: Normocephalic, atraumatic. Eyes: Anicteric sclera ENT: Tongue midline. Oropharynx without erythema or cobblestoning.Nose w/ erythema and edema w/ clear mucous. Micrognathia Neck: Supple, no adenopathy Lymph nodes: No appreciable adenopathy in cervical or supraclavicular chains Respiratory: Non-labored breathing. Symmetrical expansion. Lungs clear to auscultation, no wheezing, rhonchi, or crackles Cardiovascular: RRR without murmur, gallop, or rubs. Abdominal: Unremarkable abdominal exam, Abdomen soft, non-tender. Bowel sounds normal. Extremities: Extremities normal. No deformities, edema, or skin discoloration Musculoskeletal: Spine range of motion normal. Muscular strength intact. Mild tenderness on spine w/o bony deformity. Negative straight leg raise. AROM intact. Peripheral pulses: Dorsalis pedis pulses 2+ bilaterally Neuro: Awake, alert. Sensation grossly intact Skin: Skin color, texture, turgor normal, no rashes or lesions Psych: Mood and affect appropriate PREVIOUS RECORD REVIEW Previous records were reviewed: Depression screening tool completed and reviewed. Based on score and interview, patient is at risk for depression. Screening tool discussed with patient, and I recommended counseling/psychology referral. Medical Decision Making: Problems: Moderate: New problem with uncertain prognosis and 2+ stable chronic illnesses Data: Unique test(s) ordered: 3+ Risk: Moderate: Drug management Medical Decision Making Level: 4 - Moderate I spent a total of 45 minutes on the date of the service which included preparing to see the patient, [id number] patient care, completing clinical documentation, obtaining and/or reviewing separately obtained history, performing a medically appropriate examination, counseling and educating the pat ient/family/caregiver and ordering medications, tests, or procedures. Angela Ray MD documented in this encounterCenterville06-28-2022 Nurse Note* MILES Eddy - 03/31/2022 3:53 PM EDT Nata Penaloza is a 21 year old female here today for visit in Internal Medicine Patient has been identified by name and date of for verification purposes. Allergies have been reviewed and verified. They include the following: Patient has no known allergies. Health Maintenance has been reviewed and updated. MENINGOCOCCAL B: Consider based on risk(1 of 2 - Risk Bexsero 2-dose series) PEDS TO ADULT TRANSITION INITIAL DISCUSSION PEDS TO ADULT TRANSITION ANNUAL ASSESSMENT GC (GONORRHEA) SCREENING (18-24) HEPATITIS C SCREENING HIV SCREENING CHLAMYDIA SCREENING (18-24) COVID-19 VACCINE(3 - Booster for Pfizer series) Pharmacy benefits have been run and correct pharmacy has been verified. Yes Medication - prescribed and OTC reviewed and updated: Yes Refills have been pended for physician review and filing. No Patient Declined refills to be pended. Has the patient completed any recent labs / tests ordered by [facility]: No Is the patient active on MyChart Yes What is the patients preferred method of communication: MyChart MILES Eddy documented in this encounterCenterville06-07-2022 Miscellaneous Notes* Telephone Encounter - Maxine Dewitt APRN.CNP - 03/10/2022 3:17 PM EDT The following approved medication requests have been transmitted electronically. Signed Prescriptions Disp Refills Desogestrel-Ethinyl Estradiol (MARIAELENA, Sai,) 0.15-0.03 mg per tablet 84 tablet 0 Sig: Take 1 tablet by mouth once daily. RONY: No Pharmacy Information Pharmacy Address Telephone [facility] [address] [place] [id number] Appointments for Next 60 Days Date Time Provider Location Dept Phone 04/08/2022 11:30 AM MAXINE DEWITT Bldg [phone] Maxine Dewitt APRN.CNP March 10, 2022 3:17 PM documented in this encounterCenterville06-01-2022 Instructions* Patient Instructions* Louann Garcia PA-C - 03/04/2022 6:24 PM EDT Images from the original note were not included. Urinary Problem-When to Seek Help? Symptoms of a urinary problem may lead to a bladder infection. Women are at greater risk of a urinary tract infection than are men. Most urinary tract infections in women are caused by bacteria and involve the lower urinary tract including the bladder and urethra. Symptoms: Pain or burning when passing urine, urgency, frequency, blood in the urine, difficult emptying your bladder, and lower abdominal fullness or pressure. Common Causes: Sexual intercourse, menopause, constipation, uncontrolled diabetes, dehydration and feminine products such as tampons, and kidney stones. When to Get Help: Seek medical attention if you get frequent bladder infections, urinary concerns such as leakage, blood in the urine or frequent need to urinate. You may be recommended to get help from a specialist, such as a urologist. Diagnosis & Treatment: Lab testing may include: urinalysis, and urine culture that can be collected in the lab or walk-in clinic. Most bladder infections can easily be treated. A physician, nurse practitioner or physician bus assistant may treat with a short course of an antibiotic. Delaying treatment can lead to worsening symptoms, like a kidney infection. Self-Care: Avoid a full bladder, bubble baths, bath oils, food and beverages that may irritate the bladder such as caffeine. Avoid spermicide foam and diaphragms Void before and after sexual intercourse Wipe front to back after using the bathroom. Stay hydrated Stop Smoking Follow-up Care: Follow up testing is not needed in healthy young women if symptoms resolve. documented in this encounterCenterville06-01-2022 History of Present illness Narrative* Louann Garcia PA-C - 03/04/2022 5:57 PM EDT Subjective Nata Penaloza is a 21 year old female with no significant past medical history who presents to [facility] today for evaluation of dysuria and urinary frequency that began today. She denies any fevers, chills, nausea, vomiting, diarrhea, abdominal pain, or flank pain. She states that she had a urinary tract infection about 2 months ago and this feels the same. Review of Systems Constitutional: Negative for chills, diaphoresis and fever. Eyes: Negative for discharge and redness. Respiratory: Negative for cough and shortness of breath. Gastrointestinal: Negative for abdominal pain, constipation, diarrhea, nausea and vomiting. Genitourinary: Positive for dysuria and frequency. Negative for difficulty urinating, flank pain and urgency. Musculoskeletal: Negative for back pain and neck pain. Skin: Negative for rash and wound. All other systems reviewed and are negative. Objective BP 128/75 Pulse 83 Temp 36.9 C (98.4 F) (Temporal) Resp 12 Wt 78.5 kg (173 lb 1.6 oz) LMP02/21/2022 (Approximate) SpO2 100% BMI 28.81 kg/m Physical Exam Vitals reviewed. Constitutional: General: She is not in acute distress. Appearance: Normal appearance. She is normal weight. She is not ill-appearing or toxic-appearing. Comments: The patient appears to be non-toxic, in no acute distress, and resting comfortably on a chair. HENT: Head: Normocephalic and atraumatic. Eyes: Extraocular Movements: Extraocular movements intact. Cardiovascular: Rate and Rhythm: Normal rate and regular rhythm. Heart sounds: Normal heart sounds. No murmur heard. No friction rub. No gallop. Pulmonary: Effort: Pulmonary effort is normal. No respiratory distress. Breath sounds: Normal breath sounds. No wheezing. Abdominal: General: There is no distension. Palpations: Abdomen is soft. There is no mass. Tenderness: There is no abdominal tenderness. There is no guarding or rebound. Musculoskeletal: General: Normal range of motion. Cervical back: Normal range of motion. Skin: General: Skin is warm and dry. Findings: No erythema or rash. Neurological: General: No focal deficit present. Mental Status: She is alert and oriented to person, place, and time. Mental status is at baseline. Psychiatric: Mood and Affect: Mood normal. Behavior: Behavior normal. Thought Content: Thought content normal. Assessment and Plan UA consistent with urinary tract infection. Urine culture obtained. Results discussed with patient.Patient counseled regarding suspected diagnosis and given prescriptions for Keflex and phenazopyridine. Patient advised to follow-up with a primary care provider as needed for any new or worsening symptoms. ASSESSMENT/PLAN: 1. Leukocytes in urine - ICD9: 791.7, ICD10: R82.998 (primary diagnosis) - CEPHALEXIN 500 MG CAPSULE 2. Dysuria - ICD9: 788.1, ICD10: R30.0 - UA DIP B/O - URINE CULTURE - PHENAZOPYRIDINE 100 MG TABLET 3. Urinary frequency - ICD9: 788.41, ICD10: R35.0 Medical Decision Making: Problems: Low: Acute, uncomplicated illness or injury Risk: Minimal: Minimal risk from testing/treatment Moderate: Drug management Medical Decision Making Level: 3 - Low I spent a total of 20 minutes on the date of the service which included preparing to see the patient, [id number] patient care, completing clinical documentation, performing a medically appropriate examination, counseling and educating the patient/family/caregiver and ordering medications, tests, or procedures. documented in this encounterCenterville06-01-2022 History of Present illness Narrative* Romario Elias PA-C - 03/04/2022 10:29 AM EDT This is an Express Care eVisit note for Naat Penaloza eVisit/Questionnaire reviewed The chief complaint for the visit - Patient presents with: Urinary Problem Recommendations/Treatment plan - See My Chart Message to patient Romario lEias PA-C documented in this encounterCenterville06-01-2022 History of Present illness Narrative* Romario Elias PA-C - 03/04/2022 10:17 AM EDT This is an Express Care eVisit note for Nata Penaloza eVisit/Questionnaire reviewed The chief complaint for the visit - Patient presents with: Urinary Problem Recommendations/Treatment plan - See My Chart Message to patient Romario Elias PA-C [place]05[place] History of Present illness Narrative* Maeagn Stinson APRN.CNP - 02/03/2022 2:12 PM EDT This is an Express Care eVisit note for Nata Penaloza eVisit/Questionnaire reviewed The chief complaint for the visit - Patient presents with: UTI Recommendations/Treatment plan - See My Chart Message to patient Maegan Stinson APRN.CNP Total time spent on e-Visit: 3 minutes documented in this encounter[facility]* Diagnosis Treatment not available- Primary Procedure not carried out for other reasons documented in this encounter [facility]* Diagnosis Leukocytes in urine- Primary Other cells and casts in urine Dysuria Urinary frequency [facility] Diagnosis Encounter for initial prescription of contraceptive pills General counseling for prescription of oral contraceptives [facility]* Diagnosis Wellness examination- Primary 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, congenital Other specified congenital anomaly of pharynx Cleft palate, unspecified Chronic midline 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 sciatica Vasovagal syncope Syncope and collapse [facility]* Diagnosis Emergency contraception- Primary Encounter for initial prescription of contraceptive pills General counseling for prescription of oral contraceptives Decreased appetite Anorexia History of recent stressful life event documented [facility] this [facility]* Diagnosis Procedure not carried out- Primary Procedure not carried out for other reasons documented in this encounter [facility]* Diagnosis Allergic rhinitis, unspecified seasonality, unspecified trigger- Primary Dysfunction of both eustachian tubes Dysfunction of Eustachian tube documented [facility]* Diagnosis Chronic bilateral thoracic back pain- Primary documented in this [facility]* Diagnosis Chronic bilateral thoracic back pain documented in this [facility]* Diagnosis Chronic bilateral thoracic back pain- Primary Chronic bilateral 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 sciatica documented [facility]* Diagnosis Urinary urgency- Primary Urgency of urination Feeling of incomplete bladder emptying Incomplete bladder emptying Vaginal discharge Leukorrhea, not specified as infective Vaginal odor Unspecified symptom associated with female genital organs Urinary frequency [facility]* Diagnosis Primary insomnia- Primary Persistent disorder of initiating or maintaining sleep Cyclothymia Cyclothymic disorder Recurrent syncope Chronic maxillary sinusitis Encounter for immunization Need for other specified prophylactic vaccination against single bacterial disease [facility]* Diagnosis Chronic bilateral thoracic back pain- Primary documented in [facility]* Diagnosis Urinary frequency- Primary Vaginal discharge Leukorrhea, not specified as infective documented [facility]* Diagnosis Bipolar II disorder (HCC)- Primary Other bipolar disorders Post traumatic stress disorder (PTSD) Posttraumatic stress disorder Eating disorder, unspecified type documented [facility] this [facility]* Diagnosis confirmed by positive urine test- Primary examination or test, positive result Possible examination or test, unconfirmed [facility]* Diagnosis Encounter for supervision of normal first in first trimester- Primary Supervision of normal first confirmed by positive urine test examination or test, positive result documented [facility]* Diagnosis Encounter for supervision of normal first in first trimester- Primary Supervision of normal first IUD migration, initial encounter [facility] this [facility]* Diagnosis Candidal vaginitis- Primary Candidiasis of vulva and vagina documented in this [facility]* Diagnosis Encounter for anatomic survey- Primary Encounter for screening of mother Unspecified screening documented [facility]* Diagnosis Encounter for supervision of normal first in second trimester- Primary Supervision of normal first 24 weeks gestation of state, incidental [facility] Diagnosis Sore throat- Primary Acute pharyngitis Suspected COVID-19 virus infection documented in this encounter [facility] note* Diagnosis Encounter for supervision of normal first in third trimester- Primary Supervision of normal first documented in this encounter [facility] note* Diagnosis Pharyngitis, unspecified etiology- Primary documented in this encounter [facility] note* Diagnosis Encounter for supervision of normal in third trimester, unspecified - Primary Elevated blood pressure affecting in third trimester, antepartum Need for influenza vaccination Need for prophylactic vaccination and inoculation against influenza 34 weeks gestation of state, incidental documented in this encounter [facility] note* Diagnosis Encounter for supervision of normal first in third trimester- Primary Supervision of normal first documented in this encounter [facility] note* Diagnosis Encounter for supervision of normal in third trimester, unspecified - Primary documented in this encounter [facility] note* Diagnosis Encounter for supervision of normal in third trimester, unspecified - Primary documented in this encounter [facility] note* Diagnosis BP check- Primary Screening for hypertension documented in this encounter [facility] note* Diagnosis Encounter for screening for maternal depression- Primary documented in this encounter [facility] note* Diagnosis care and examination- Primary Routine follow-up Cervical cancer screening Screening for malignant neoplasm of the cervix documented in this encounter [facility] note* Diagnosis Acute cystitis with hematuria- Primary Acute cystitis UTI symptoms Other symptoms involving urinary system documented in this encounter [facility] note* Diagnosis Pelvic pain in female- Primary Unspecified symptom associated with female genital organs IUD check up Surveillance of previously prescribed intrauterine contraceptive device Abnormal uterine bleeding (AUB) documented in this encounter [facility] note* Diagnosis Surveillance of previously prescribed intrauterine contraceptive device- Primary documented in this encounter [facility] note* Diagnosis Pelvic pain in female Unspecified symptom associated with female genital organs documented in this encounter [facility] note* Diagnosis Ovarian cyst, right- Primary Other and unspecified ovarian cyst documented in this encounter [facility] for referral (narrative)* Diagnostic Procedure Only (Routine) - Authorized Specialty Diagnoses / Procedures Referred By Contac t Referred To Contact XR IMAGING Diagnoses Chronic bilateral thoracic back pain Procedures XR THORACIC GENERAL 3V AP/LAT/SWIMMERS RADEX SPINE THORACIC 3 VIEWS Wilver Montemayor DC [address] [place] [address] Xr Imaging Referral ID Status Reason Start Date Expiration Date Visits Requested Visits Authorized [id number] Authorized Auto-Generat ed Referral 07/01/2022 07/31/2023 1 1 [facility] for referral (narrative)* Diagnostic Procedure Only (Routine) - Closed Specialty Diagnoses / Procedures Referred By Contac t Referred To Contact XR IMAGING Diagnoses Chronic bilateral thoracic back pain Procedures XR THORACIC GENERAL 3V AP/LAT/SWIMMERS RADEX SPINE THORACIC 3 VIEWS Wilver Montemayor DC [address] [place] [address] Xr Imaging Referral ID Status Reason Start Date Expiration Date V isits Requested Visits Authorized [id number] Closed Auto-Generate d Referral 07/01/2022 07/31/2023 1 1 [facility] for referral (narrative)* Diagnostic Procedure Only (Routine) - Authorized Specialty Diagnoses / Procedures Referred By Contac t Referred To Contact [facility] Diagnoses Encounter for supervision of normal first in first trimester Procedures NUCHAL TRANSLUCENCY [facility] US NUCHAL TRANSLUCENCY 1ST GESTATION Remi Powell MD [address] [address] Referral ID Status Reason Start Date Expiration Date Visits Requested Visits Authorized [id number] Authorized Auto-Generat ed Referral 12/25/2022 12/25/2023 1 1 [facility] for referral (narrative)* Outpatient Procedure (Routine) - Authorized Specialty Diagnoses / Procedures Referred By Contac t Referred To Contact [facility] Diagnoses Sore throat Procedures OXIMETRY AT REST NONINVASIVE EAR/PULSE OXIMETRY SINGLE Jerri Cartagena, SWEETBREAD TRIMMER.FOOD AND BEVERAGE SERVER [address] [place] [id number] [place] [phone] Referral ID Status Reason Start Date Expiration Date Visits Requested Visits Authorized [id number] Authorized Auto-Generat ed Referral 05/19/2023 06/17/2024 1 1 [facility] for referral (narrative)* Diagnostic Procedure Only (Routine) - Authorized Specialty Diagnoses / Procedures Referred By Contac t Referred To Contact [facility] Diagnoses Pelvic pain in female Procedures PELVIC [facility] US PELVIC NONOBSTETRIC REAL-TIME IMAGE COMPLETE Bharathi Estrada MD [address] [place] [address] [place] [phone] Referral ID Status Reason Start Date Expiration Date Visits Requested Visits Authorized [id number] Authorized Auto-Generat ed Referral 01/24/2024 01/23/2025 1 1 [facility] for referral (narrative)* Diagnostic Procedure Only (Routine) - New Request Specialty Diagnoses / Procedures Referred By Contac t Referred To Contact [facility] Diagnoses Ovarian cyst, right Procedures [facility] US PELVIC NONOBSTETRIC REAL-TIME IMAGE COMPLETE Bharathi Estrada MD [address] [place] [address] [place] [phone] Referral ID Status Reason Start Date Expiration Date Visits Requested Visits Authorized [id number] New Request Auto-Generat ed Referral 07/12/2024 07/12/2025 1 1 [facility] for visit Narrative* Diagnostic Procedure Only (Routine) - Closed Specialty Diagnoses / Procedures Referred By Contac t Referred To Contact [facility] Diagnoses Pelvic pain in female Procedures [facility] US PELVIC NONOBSTETRIC REAL-TIME IMAGE COMPLETE Bharathi Estrada MD [address] 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 Advance Directive(s) 04/10/2022 7:51 PM Reason for Referral Specialty Diagnoses / Procedures Referred By Contac t Referred To Contact Diagnoses Dysfunction of both eustachian tubes Procedures ADULT HEARING TEST/AUDIOGRAM COMPRE AUDIOMETRY THRESHOLD EVAL SP RECOGNIJ Carmen Ramirez MD [address] [place] [address] [facility] [address] [place] [address] Referral ID Status Reason Start Date Expiration Date Visits Requested Visits Authorized [id number] Authorized Auto-Generat ed Referral 04/14/2022 07/13/2022 1 1 Specialty Diagnoses / Procedures Referred By Contac t Referred To Contact Allergy Diagnoses Allergic rhinitis, unspecified seasonality, unspecified trigger Procedures CONSULT TO ALLERGY/IMMUNOLOGY OFFICE/OUTPATIENT [facility] 60-74 MINUTES Carmen Ramirez MD [address] [place] [address] Referral ID Status Reason Start Date Expiration Date Visits Requested Visits Authorized [id number] Authorized PCP Requested Referral 04/14/2022 04/14/2023 1 1 Specialty Diagnoses / Procedures Referred By Contac t Referred To Contact Diagnoses Recurrent syncope Procedures CONSULT TO [facility] OFFICE/OUTPATIENT [facility] 60-74 MINUTES Hellen Paez MD [address] [place], [place] [phone] Referral ID Status Reason Start Date Expiration Date Visits Requested Visits Authorized [id number] Authorized PCP Requested Referral 07/17/2023 1 1 Specialty Diagnoses / Procedures Referred By Contac t Referred To Contact ADULT PSYCHIATRY Diagnoses Bipolar II disorder (HCC) Post traumatic stress disorder (PTSD) Eating disorder, unspecified type Procedures CONSULT TO INTENSIVE OUTPATIENT PROGRAM (IOP) OFFICE/OUTPATIENT [facility] 60-74 MINUTES Rajni Evans LISW [address] [place] [address] Psyc Adult [facility] [address] [place] [phone] Referral ID Status Reason Start Date Expiration Date Visits Requested Visits Authorized [id number] Authorized PCP Requested Referral 11/03/2022 11/03/2023 1 1 Specialty Diagnoses / Procedures Referred By Gonsalo tan Referred To Contact Diagnoses confirmed by positive urine test Procedures CONSULT TO METAL STAMPER OFFICE/OUTPATIENT [facility] 60-74 MINUTES Maegan Morrissey PA-C [address] [place] [address] Referral ID Status Reason Start Date Expiration Date Visits Requested Visits Authorized [id number] Authorized PCP Requested Referral Auto-Generate d Referral 11/30/2022 11/30/2023 1 1 Summary Purpose Family History No Family History Records FoundNo Family History Records FoundNo Family History Records FoundNo Family History Records FoundNo Family History Records FoundNo Family History Records Found Health Concerns Problem Noted Date OB Reminders 12/25/2022 Problem Noted Date OB Reminders 12/25/2022 Problem Noted Date OB Reminders 12/25/2022 Problem Noted Date OB Reminders 12/25/2022 Problem Noted Date OB Reminders 12/25/2022 Problem Noted Date Diagnosed Date OB Reminders 12/25/2022 Problem Noted Date Diagnosed Date OB Reminders 12/25/2022 Problem Noted Date Diagnosed Date OB Reminders 12/25/2022 Problem Noted Date Diagnosed Date OB Reminders 12/25/2022 Problem Noted Date Diagnosed Date OB Reminders 12/25/2022 Problem Noted Date Diagnosed Date OB Reminders 12/25/2022 Problem Noted Date Diagnosed Date OB Reminders 12/25/2022 Problem Noted Date Diagnosed Date OB Reminders 12/25/2022 Problem Noted Date Diagnosed Date OB Reminders 12/25/2022 Problem Noted Date Diagnosed Date OB Reminders 12/25/2022 Additional Source Comments Source Comments (unrecognize d section and content) In the event this informatio n is protected by the Federal Confidentiality of Alcohol and Drug Abuse Patient Records regulations: The Federal rules restrict any use of the information to criminally investigate or prosecute any alcohol or drug abuse patient.[place]In the event this information is protected by the Federal Confidentiality of Alcohol and Drug Abuse Patient Records regulations: The Federal rules restrict any use of the information to criminally investigate or prosecute any alcohol or drug abuse patient.[place]In the event this information is protected by the Federal Confidentiality of Alcohol and Drug Abuse Patient Records regulations: The Federal rules restrict any use of the information to criminally investigate or prosecute any alcohol or drug abuse patient.[place]In the event this information is protected by the Federal Confidentiality of Alcohol and Drug Abuse Patient Records regulations: The Federal rules restrict any use of the information to criminally investigate or prosecute any alcohol or drug abuse patient.[place]In the event this information is protected by the Federal Confidentiality of Alcohol and Drug Abuse Patient Records regulations: The Federal rules restrict any use of the information to criminally investigate or prosecute any alcohol or drug abuse patient.[place]In the event this information is protected by the Federal Confidentiality of Alcohol and Drug Abuse Patient Records regulations: The Federal rules restrict any use of the information to criminally investigate or prosecute any alcohol or drug abuse patient.[place]In the event this information is protected by the Federal Confidentiality of Alcohol and Drug Abuse Patient Records regulations: The Federal rules restrict any use of the information to criminally investigate or prosecute any alcohol or drug abuse patient.[place]In the event this information is protected by the Federal Confidentiality of Alcohol and Drug Abuse Patient Records regulations: The Federal rules restrict any use of the information to criminally investigate or prosecute any alcohol or drug abuse patient.[place]ervilleIn the event this information is protected by the Federal Confidentiality of Alcohol and Drug Abuse Patient Records regulations: The Federal rules restrict any use of the information to criminally investigate or prosecute any alcohol or drug abuse patient.[place]In the event this information is protected by the Federal Confidentiality of Alcohol and Drug Abuse Patient Records regulations: The Federal rules restrict any use of the information to criminally investigate or prosecute any alcohol or drug abuse patient.[place]ervilleIn the event this information is protected by the Federal Confidentiality of Alcohol and Drug Abuse Patient Records regulations: The Federal rules restrict any use of the information to criminally investigate or prosecute any alcohol or drug abuse patient.[place]In the event this information is protected by the Federal Confidentiality of Alcohol and Drug Abuse Patient Records regulations: The Federal rules restrict any use of the information to criminally investigate or prosecute any alcohol or drug abuse patient.[place]In the event this information is protected by the Federal Confidentiality of Alcohol and Drug Abuse Patient Records regulations: The Federal rules restrict any use of the information to criminally investigate or prosecute any alcohol or drug abuse patient.[place]In the event this information is protected by the Federal Confidentiality of Alcohol and Drug Abuse Patient Records regulations: The Federal rules restrict any use of the information to criminally investigate or prosecute any alcohol or drug abuse patient.[place]ervilleIn the event this information is protected by the Federal Confidentiality of Alcohol and Drug Abuse Patient Records regulations: The Federal rules restrict any use of the information to criminally investigate or prosecute any alcohol or drug abuse patient.[place]In the event this information is protected by the Federal Confidentiality of Alcohol and Drug Abuse Patient Records regulations: The Federal rules restrict any use of the information to criminally investigate or prosecute any alcohol or drug abuse patient.[place]In the event this information is protected by the Federal Confidentiality of Alcohol and Drug Abuse Patient Records regulations: The Federal rules restrict any use of the information to criminally investigate or prosecute any alcohol or drug abuse patient.[place]In the event this information is protected by the Federal Confidentiality of Alcohol and Drug Abuse Patient Records regulations: The Federal rules restrict any use of the information to criminally investigate or prosecute any alcohol or drug abuse patient.[place]In the event this information is protected by the Federal Confidentiality of Alcohol and Drug Abuse Patient Records regulations: The Federal rules restrict any use of the information to criminally investigate or prosecute any alcohol or drug abuse patient.[place]In the event this information is protected by the Federal Confidentiality of Alcohol and Drug Abuse Patient Records regulations: The Federal rules restrict any use of the information to criminally investigate or prosecute any alcohol or drug abuse patient.[place]In the event this information is protected by the Federal Confidentiality of Alcohol and Drug Abuse Patient Records regulations: The Federal rules restrict any use of the information to criminally investigate or prosecute any alcohol or drug abuse patient.[place]In the event this information is protected by the Federal Confidentiality of Alcohol and Drug Abuse Patient Records regulations: The Federal rules restrict any use of the information to criminally investigate or prosecute any alcohol or drug abuse patient.[place]In the event this information is protected by the Federal Confidentiality of Alcohol and Drug Abuse Patient Records regulations: The Federal rules restrict any use of the information to criminally investigate or prosecute any alcohol or drug abuse patient.[place]In the event this information is protected by the Federal Confidentiality of Alcohol and Drug Abuse Patient Records regulations: The Federal rules restrict any use of the information to criminally investigate or prosecute any alcohol or drug abuse patient.[place]In the event this information is protected by the Federal Confidentiality of Alcohol and Drug Abuse Patient Records regulations: The Federal rules restrict any use of the information to criminally investigate or prosecute any alcohol or drug abuse patient.[place]In the event this information is protected by the Federal Confidentiality of Alcohol and Drug Abuse Patient Records regulations: The Federal rules restrict any use of the information to criminally investigate or prosecute any alcohol or drug abuse patient.[place]In the event this information is protected by the Federal Confidentiality of Alcohol and Drug Abuse Patient Records regulations: The Federal rules restrict any use of the information to criminally investigate or prosecute any alcohol or drug abuse patient.[place]In the event this information is protected by the Federal Confidentiality of Alcohol and Drug Abuse Patient Records regulations: The Federal rules restrict any use of the information to criminally investigate or prosecute any alcohol or drug abuse patient.[place]In the event this information is protected by the Federal Confidentiality of Alcohol and Drug Abuse Patient Records regulations: The Federal rules restrict any use of the information to criminally investigate or prosecute any alcohol or drug abuse patient.[place]In the event this information is protected by the Federal Confidentiality of Alcohol and Drug Abuse Patient Records regulations: The Federal rules restrict any use of the information to criminally investigate or prosecute any alcohol or drug abuse patient.[place]In the event this information is protected by the Federal Confidentiality of Alcohol and Drug Abuse Patient Records regulations: The Federal rules restrict any use of the information to criminally investigate or prosecute any alcohol or drug abuse patient.[place]In the event this information is protected by the Federal Confidentiality of Alcohol and Drug Abuse Patient Records regulations: The Federal rules restrict any use of the information to criminally investigate or prosecute any alcohol or drug abuse patient.CentervilleIn the event this information is protected by the Federal Confidentiality of Alcohol and Drug Abuse Patient Records regulations: The Federal rules restrict any use of the information to criminally investigate or prosecute any alcohol or drug abuse patient.CentervilleIn the event this information is protected by the Federal Confidentiality of Alcohol and Drug Abuse Patient Records regulations: The Federal rules restrict any use of the information to criminally investigate or prosecute any alcohol or drug abuse patient.[place]ervilleIn the event this information is protected by the Federal Confidentiality of Alcohol and Drug Abuse Patient Records regulations: The Federal rules restrict any use of the information to criminally investigate or prosecute any alcohol or drug abuse patient.CentervilleIn the event this information is protected by the Federal Confidentiality of Alcohol and Drug Abuse Patient Records regulations: The Federal rules restrict any use of the information to criminally investigate or prosecute any alcohol or drug abuse patient.CentervilleIn the event this information is protected by the Federal Confidentiality of Alcohol and Drug Abuse Patient Records regulations: The Federal rules restrict any use of the information to criminally investigate or prosecute any alcohol or drug abuse patient.CentervilleIn the event this information is protected by the Federal Confidentiality of Alcohol and Drug Abuse Patient Records regulations: The Federal rules restrict any use of the information to criminally investigate or prosecute any alcohol or drug abuse patient.CentervilleIn the event this information is protected by the Federal Confidentiality of Alcohol and Drug Abuse Patient Records regulations: The Federal rules restrict any use of the information to criminally investigate or prosecute any alcohol or drug abuse patient.[place]ervilleIn the event this information is protected by the Federal Confidentiality of Alcohol and Drug Abuse Patient Records regulations: The Federal rules restrict any use of the information to criminally investigate or prosecute any alcohol or drug abuse patient.CentervilleIn the event this information is protected by the Federal Confidentiality of Alcohol and Drug Abuse Patient Records regulations: The Federal rules restrict any use of the information to criminally investigate or prosecute any alcohol or drug abuse patient.CentervilleIn the event this information is protected by the Federal Confidentiality of Alcohol and Drug Abuse Patient Records regulations: The Federal rules restrict any use of the information to criminally investigate or prosecute any alcohol or drug abuse patient.CentervilleIn the event this information is protected by the Federal Confidentiality of Alcohol and Drug Abuse Patient Records regulations: The Federal rules restrict any use of the information to criminally investigate or prosecute any alcohol or drug abuse patient.CentervilleIn the event this information is protected by the Federal Confidentiality of Alcohol and Drug Abuse Patient Records regulations: The Federal rules restrict any use of the information to criminally investigate or prosecute any alcohol or drug abuse patient.CentervilleIn the event this information is protected by the Federal Confidentiality of Alcohol and Drug Abuse Patient Records regulations: The Federal rules restrict any use of the information to criminally investigate or prosecute any alcohol or drug abuse patient.CentervilleIn the event this information is protected by the Federal Confidentiality of Alcohol and Drug Abuse Patient Records regulations: The Federal rules restrict any use of the information to criminally investigate or prosecute any alcohol or drug abuse patient.CentervilleIn the event this information is protected by the Federal Confidentiality of Alcohol and Drug Abuse Patient Records regulations: The Federal rules restrict any use of the information to criminally investigate or prosecute any alcohol or drug abuse patient.CentervilleIn the event this information is protected by the Federal Confidentiality of Alcohol and Drug Abuse Patient Records regulations: The Federal rules restrict any use of the information to criminally investigate or prosecute any alcohol or drug abuse patient.CentervilleIn the event this information is protected by the Federal Confidentiality of Alcohol and Drug Abuse Patient Records regulations: The Federal rules restrict any use of the information to criminally investigate or prosecute any alcohol or drug abuse patient.CentervilleIn the event this information is protected by the Federal Confidentiality of Alcohol and Drug Abuse Patient Records regulations: The Federal rules restrict any use of the information to criminally investigate or prosecute any alcohol or drug abuse patient.[place] Reason for Visit (unrecogniz ed section and content) Reason Comments UTI Reason Comments Urinary Problem Reason Comments UTI onset today Reason Comments Establish Care Reason Comments Contraception Reason Comments Dizziness hasn't been feeling well since Wednesday and passed out yesterday for roughly 2 mins at most. Today just has been feeling off Reason Onset Date Comments Transition Of Care 04/13/2022 TCM - Hospita l D/C Follow up - Initial Outreach Reason Comments New Patient Sinus Problem Ear Problem Reason Comments Wellness Back, neck and shoul ders Specialty Diagnoses / Procedures Referred By Contac t Referred To Contact Chiropractor / WELLNESS Diagnoses Back pain CONSULT BACK EHP EMP Procedures OFFICE/OUTPATIENT [facility] 30-44 MINUTES CHIROPRAC MANIP,SPINAL,1-2 [place] CHIROPRACTOR Self Wilver Montemayor DC [address] [place] [address] Referral ID Status Reason Start Date Expiration Date Visits Requested Visits Authorized [id number] Authorized Benefit Check 07/01/2022 10/03/2022 30 30 Reason Comments Radio Gen HB6 Radio Gen A21 Specialty Diagnoses / Procedures Referred By Contac t Referred To Contact XR IMAGING Diagnoses Chronic bilateral thoracic back pain Procedures XR THORACIC GENERAL 3V AP/LAT/SWIMMERS RADEX SPINE THORACIC 3 VIEWS Wilver Montemayor DC [address] [place] [address] Xr Imaging Referral ID Status Reason Start Date Expiration Date V isits Requested Visits Authorized [id number] Closed Auto-Generate d Referral 07/01/2022 07/31/2023 1 1 Reason Comments Wellness Full back, middle up per Specialty Diagnoses / Procedures Referred By Contac t Referred To Contact Chiropractor / WELLNESS Diagnoses Back pain CONSULT BACK EHP EMP Procedures OFFICE/OUTPATIENT [facility] 30-44 MINUTES CHIROPRAC MANIP,SPINAL,1-2 [facility] [place] [facility]IR[facility] Self Wilver Montemayor [place] [address] [place] [id number] Reason Comments Establish Care Reason Comments Vaginal Problem Urinary frequency, l ower abd pain and pressure x4 days Reason Comments Results Reason Comments Patient Update Reason Comments Testing Home test positive; pt seeking confirmation and next steps Reason Comments Care 8W Specialty Diagnoses / Procedures Referred By Contac t Referred To Contact Diagnoses confirmed by positive urine test Procedures CONSULT TO METAL ST[employer]PER OFFICE/OUTPATIENT NEW HIGH MDM 60-74 MINUTES Maegan Morrissey PA-C [address] [place] [address] Referral ID Status Reason Start Date Expiration Date V isits Requested Visits Authorized [id number] Closed PCP Requested Referral Auto-Generated Referral 11/30/2022 11/30/2023 1 1 Reason Comments Results NIPT Reason Comments Care Reason Comments US Specialty Diagnoses / Procedures Referred By Contac t Referred To Contact [facility] Diagnoses Encounter for screening of mother Procedures OBSTETRIC ULTRASOUND WHI US PREG UTERUS AFTER 1ST [place] [address] [address] [place] [id number] [facility] [address] [place] [address] Referral ID Status Reason Start Date Expiration Date V isits Requested Visits Authorized [id number] Closed Auto-Generate d Referral 01/25/2023 01/25/2024 1 1 Reason Comments Sore Throat Pt is having sore th roat for a couple days, she wants to get covid, strep and flu tested Reason Comments Care 29W Reason Comments Sore Throat X [address] infection x 3 days Reason Onset Date Comments Immunizations 06/25/2023 Flu vaccination Reason Onset Date Comments Population Health Navigation Outreach 07/23/2023 Peds/OB Reason Comments Appointment Needs one week bp ch noel for GHTN Reason Comments Blood Pressure Check Reason Comments Hospital F/U Reason Comments Early Reason Comments Routine 6 week Reason Comments UTI Pt states she has be en having UTI symptoms started x 2 days ago. Pt states she has severe abdominal pain, burning after she pees and the urge to pee. Reason Comments iud check Care Teams (unrecognized sec tion and content) Senior Internet Sales Consultant Relationship Specialty Start Date End Date Angela Ray MD [address] [place] [address] PCP - General Internal Medicine/Pediatrics 03/31/22 Senior Internet Sales Consultant Relationship Specialty Start Date End Date Angela Ray MD [address] [place] [id number] PCP - General Internal Medicine/Pediatrics 03/31/22 Senior Internet Sales Consultant Relationship Specialty Start Date End Date Hellen Paez MD [address] [place] [id number] PCP - General Internal Medicine 04/12/22 Senior Internet Sales Consultant Relationship Specialty Start Date End Date Hellen Paez MD [address] [place] [id number] PCP - General Internal Medicine 04/12/22 Senior Internet Sales Consultant Relationship Specialty Start Date End Date Hellen Paez MD [address] [place] [address] PCP - General Internal Medicine 04/12/22 Senior Internet Sales Consultant Relationship Specialty Start Date End Date Hellen Paez MD [address] [place] [address] PCP - General Internal Medicine 04/12/22 Senior Internet Sales Consultant Relationship Specialty Start Date End Date Hellen Paez MD [address] [place] [address] PCP - General Internal Medicine 04/12/22 Senior Internet Sales Consultant Relationship Specialty Start Date End Date Hellen Paez MD [address] [place] [address] PCP - General Internal Medicine 04/12/22 Senior Internet Sales Consultant Relationship Specialty Start Date End Date Hellen Paez MD [address] [place] [address] PCP - General Internal Medicine 04/12/22 Senior Internet Sales Consultant Relationship Specialty Start Date End Date Hellen Paez MD [address] [place] [address] PCP - General Internal Medicine 04/12/22 Senior Internet Sales Consultant Relationship Specialty Start Date End Date Hellen Paez MD [address] [place] [address] PCP - General Internal Medicine 04/12/22 Senior Internet Sales Consultant Relationship Specialty Start Date End Date Hellen Paez MD [address] [place] [address] PCP - General Internal Medicine 04/12/22 Senior Internet Sales Consultant Relationship Specialty Start Date End Date Hellen Paez MD [address] [place] [address] PCP - General Internal Medicine 04/12/22 Senior Internet Sales Consultant Relationship Specialty Start Date End Date Hellen Paez MD [address] [place] [address] PCP - General Internal Medicine 04/12/22 Senior Internet Sales Consultant Relationship Specialty Start Date End Date Hellen Paez MD [address] [place] [address] PCP - General Internal Medicine 04/12/22 Senior Internet Sales Consultant Relationship Specialty Start Date End Date Hellen Peaz MD [address] [place] [address] PCP - General Internal Medicine 04/12/22 Senior Internet Sales Consultant Relationship Specialty Start Date End Date Hellen Paez MD [address] [place] [address] PCP - General Internal Medicine 04/12/22 Senior Internet Sales Consultant Relationship Specialty Start Date End Date Hellen Paez MD [address] [place] [address] PCP - General Internal Medicine 04/12/22 Senior Internet Sales Consultant Relationship Specialty Start Date End Date Hellen Paez MD [address] [place] [address] PCP - General Internal Medicine 04/12/22 Senior Internet Sales Consultant Relationship Specialty Start Date End Date Hellen Paez MD [address] [place] [address] PCP - General Internal Medicine 04/12/22 Senior Internet Sales Consultant Relationship Specialty Start Date End Date Hellen Paez MD [address] [place] [address] PCP - General Internal Medicine 04/12/22 Senior Internet Sales Consultant Relationship Specialty Start Date End Date Hellen Paez MD [address] [place] [address] PCP - General Internal Medicine 04/12/22 Senior Internet Sales Consultant Relationship Specialty Start Date End Date Hellen Paez MD [address] [place], [place] [id number] PCP - General Internal Medicine 04/12/22 Senior Internet Sales Consultant Relationship Specialty Start Date End Date Hellen Paez MD [address] [place] [address] PCP - General Internal Medicine 04/12/22 Senior Internet Sales Consultant Relationship Specialty Start Date End Date Hellen Paez MD [address] [place], [place] [id number] PCP - General Internal Medicine 04/12/22 Senior Internet Sales Consultant Relationship Specialty Start Date End Date Hellen Paez MD [address] [place], [place] [id number] PCP - General Internal Medicine 04/12/22 Senior Internet Sales Consultant Relationship Specialty Start Date End Date Hellen Paez MD [address] [place] [address] PCP - General Internal Medicine 04/12/22 Senior Internet Sales Consultant Relationship Specialty Start Date End Date Hellen Paez MD [address] [place] [phone] PCP - General Internal Medicine 04/12/22 Senior Internet Sales Consultant Relationship Specialty Start Date End Date Hellen Paez MD [address] [place] [address] PCP - General Internal Medicine 04/12/22 Senior Internet Sales Consultant Relationship Specialty Start Date End Date Hellen Paez MD [address] [place] [address] PCP - General Internal Medicine 04/12/22 Senior Internet Sales Consultant Relationship Specialty Start Date End Date Hellen Paez MD [address] [place] [address] PCP - General Internal Medicine 04/12/22 Senior Internet Sales Consultant Relationship Specialty Start Date End Date Hellen Paez MD [address] [place] [phone] PCP - General Internal Medicine 04/12/22 Senior Internet Sales Consultant Relationship Specialty Start Date End Date Hellen Paez MD [address] [place], [place] [address] PCP - General Internal Medicine 04/12/22 Senior Internet Sales Consultant Relationship Specialty Start Date End Date Hellen Paez MD [address] [place] [address] PCP - General Internal Medicine 04/12/22 Senior Internet Sales Consultant Relationship Specialty Start Date End Date Hellen Paez MD [address] [place] [address] PCP - General Internal Medicine 04/12/22 Senior Internet Sales Consultant Relationship Specialty Start Date End Date Hellen Paez MD [address] [place] [address] PCP - General Internal Medicine 04/12/22 Senior Internet Sales Consultant Relationship Specialty Start Date End Date Hellen Paez MD [address] [place] [address] PCP - General Internal Medicine 04/12/22 INFORMATION SOURCE (unrecogn ized section and content) DATE CREATED AUTHOR 11/11/2022 [facility] DATE CREATED AUTHOR AUTHOR'S ORGANIZ ATION 07/25/2023 [facility] DATE CREATED AUTHOR AUTHOR'S ORGANIZ ATION 08/23/2023 [facility] DATE CREATED AUTHOR AUTHOR'S ORGANIZ ATION 12/15/2024 [facility] DATE CREATED AUTHOR AUTHOR'S ORGANIZ ATION 03/01/2025 [facility] DATE CREATED AUTHOR AUTHOR'S ORGANIZ ATION 04/26/2025 [facility] FOR RECORDS PERTAINING TO PATIENTS WHO ARE OR HAVE BEEN ENROLLED IN A CHEMICAL DEPENDENCY/SUBSTANCEABUSE PROGRAM, SOME INFORMATION MAY BE OMITTED. This clinical summary was aggregated from multiple sources. Caution should be exercised in using it in the provision of clinical care. This summary normalizes information from multiple sources, and as a consequence, information in this document may materially change the coding, format and clinical context of patient data. In addition, data may be omitted in some cases. CLINICAL DECISIONS SHOULD BE BASED ON THE PRIMARY CLINICAL RECORDS. [facility]. provides no warranty or guarantee of the accuracy or completeness of information in this document.
[2025-04-27 09:05] LABS: hCG Titer Quant., Serum 11 mIU/mL (<9 non-preg)
== END | disposition home or self-care (01) ==
LOC: LAB 07:34
PROVIDERS: PCP Internal Medicine; Referring Provider Advanced Practice Midwife; Visit Provider Advanced Practice Midwife
DX: N91.2 Amenorrhea, unspecified (principal)
CPT/HCPCS: 36415; 84702

== ENCOUNTER → 2025-04-30 | Outpatient (CLI) | payer OTHER, MEDICAID, SELFPAY ==
[2025-04-30 11:06] LABS: hCG Titer Quant., Serum < 1 mIU/mL (<9 non-preg)
[2025-05-02 02:07] LABS: Anti-Cardiolipin Ab, IgG, Qn < 9 GPL U/mL (0-14); Anti-Cardiolipin Ab, IgM, Qn < 9 MPL U/mL (0-12); Beta-2-Glycoprotein I IgA <9 (0-25); Beta-2-Glycoprotein I IgG <9 (0-20); Beta-2-Glycoprotein I IgM <9 (0-32); Dilute Russell Viper Venom 34.0 sec (0.0-47.0); Interpretation Comment: (.); PTT-LA 31.1 sec (0.0-43.5)
== END | disposition home or self-care (01) ==
LOC: BWCLAB 09:23
PROVIDERS: PCP Internal Medicine; Visit Provider Advanced Practice Midwife
DX: N91.2 Amenorrhea, unspecified (principal); N96 Recurrent pregnancy loss
CPT/HCPCS: 36415; 83036; 84443; 84702; 86146; 86147

== ENCOUNTER → 2025-05-02 | Outpatient (CLI) | payer OTHER, MEDICAID, SELFPAY ==
[2025-05-02 11:02] LABS: Hematocrit 41.1 % (37-47); Hemoglobin 13.9 g/dL (12.0-15.0); Immature Granulocytes Count 0.030 X10^3/uL (0.0-0.0); Mean Corp Hgb Conc 33.8 g/dL (32-36); Mean Corpuscular Volume 84.2 fL (81-99); Mean Platelet Vol. 10.8 fl (6.2-12.0); NRBC Flagged by Analyzer 0 % (0-5); Platelet Count 265 K/mm3 (150-450); RBC Distribution Width CV 12.2 % (11.6-14.6); RBC Distribution Width SD 37.0 fl (35.1-43.9); Red Blood Count 4.88 M/mm3 (4.2-5.4); White Blood Count 7.4 K/mm3 (4.4-11.0)
[2025-05-02 12:19] LABS: Ferritin 20 ng/mL (22-378); Vitamin D,25 Hydroxy 43.3 ng/mL (30-100)
[2025-05-02 14:21] LABS: Iron 86 ug/dL (50-170)
[2025-05-02 15:27] LABS: Iron Binding Capacity,Total 338 ug/dL (250-450); Iron Binding Capacity,Unsat 252 ug/dL (228-428)
--- OUTSIDE RECORDS SUMMARY | 2025-05-02 19:43 | XMS RPT_ITS | CCD ---
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 506.0400, L506.1000, L500.4050, L501.9520, L100.0100 #### [facility] [address] [place], [address] ALT [Catalytic activity/Vol] 24 U/L Normal 13-56 [facility] Comment on above: Performed By: #### L 506.0400, L506.1000, L500.4050, L501.9520, L100.0100 #### [facility] [address] [place], [address] AST [Catalytic activity/Vol] 14 U/L Low 15-37 [facility] Comment on above: Performed By: #### L 506.0400, L506.1000, L500.4050, L501.9520, L100.0100 #### [facility] [address] [place], [address] Bilirubin [Mass/Vol] 0.30 mg/dL Normal 0.20-1.00 [facility] Comment on above: Result Comment: For patients on eltrombopag therapy, use of Dimension [place] TBIL is not recommended. Performed By: #### L 506.0400, L506.1000, L500.4050, L501.9520, L100.0100 #### [facility] [address] [place], [address] BUN/CRE 16.8 RATIO Normal 10-20 [facility] Comment on above: Performed By: #### L 506.0400, L506.1000, L500.4050, L501.9520, L100.0100 #### [facility] [address] [place], [address] CA,Total 9.2 mg/dL Normal 8.5-10.1 [facility] Comment on above: Performed By: #### L 506.0400, L506.1000, L500.4050, L501.9520, L100.0100 #### [facility] [address] [place], [address] Chloride [Moles/Vol] 100 mmol/L Normal 98-107 [facility] Comment on above: Performed By: #### L 506.0400, L506.1000, L500.4050, L501.9520, L100.0100 #### [facility] [address] [place], [address] CO2 [Moles/Vol] 27.0 mmol/L Normal 21.0-32.0 [facility] Comment on above: Performed By: #### L 506.0400, L506.1000, L500.4050, L501.9520, L100.0100 #### [facility] [address] [place], [address] Creatinine [Mass/Vol] 0.83 mg/dL Normal 0.55-1.02 [facility] Comment on above: Result Comment: The validity of the calculated GFR GFRAA in patients over 70 years has not been determined. Clinical correlation is essential. Performed By: #### L 506.0400, L506.1000, L500.4050, L501.9520, L100.0100 #### [facility] [address] [place], [address] EST GFR - AA 110 mL/min Normal >60 [facility] Comment on above: Result Comment: Afri can Tongan GFR Calc Performed By: #### L 506.0400, L506.1000, L500.4050, L501.9520, L100.0100 #### [facility] [address] [place], [address] GAP 9 Normal 5-15 [facility] Comment on above: Performed By: #### L 506.0400, L506.1000, L500.4050, L501.9520, L100.0100 #### [facility] [address] [place], [address] GFR/1.73 sq M.predicted among non-blacks MDRD (S/P/Bld) [Vol rate/Area] 91 mL/min/{1.73_m2} Normal >60 [facility] Comment on above: Result Comment: Non- GFR Calc Performed By: #### L 506.0400, L506.1000, L500.4050, L501.9520, L100.0100 #### [facility] [address] [place], [address] Globulin (S) [Mass/Vol] 3.7 g/dL Normal 2.2-4.2 [facility] Comment on above: Performed By: #### L 506.0400, L506.1000, L500.4050, L501.9520, L100.0100 #### [facility] [address] [place], [address] Glucose [Mass/Vol] 89 mg/dL Normal 74-106 [facility] Comment on above: Performed By: #### L 506.0400, L506.1000, L500.4050, L501.9520, L100.0100 #### [facility] [address] [place], [address] Potassium [Moles/Vol] 3.8 mmol/L Normal 3.5-5.1 [facility] Comment on above: Performed By: #### L 506.0400, L506.1000, L500.4050, L501.9520, L100.0100 #### [facility] [address] [place], [address] Sodium [Moles/Vol] 137 mmol/L Normal 136-145 [facility] Comment on above: Performed By: #### L 506.0400, L506.1000, L500.4050, L501.9520, L100.0100 #### [facility] [address] [place], [address] T PROT 7.8 g/dL Normal 6.4-8.2 [facility] Comment on above: Performed By: #### L 506.0400, L506.1000, L500.4050, L501.9520, L100.0100 #### [facility] [address] [place], [address] Urea nitrogen [Mass/Vol] 14 mg/dL Normal 7-18 [facility] Comment on above: Performed By: #### L 506.0400, L506.1000, L500.4050, L501.9520, L100.0100 #### [facility] [address] [place], [address] T4 Free Directon 10-25-2024 T4 FREE DIRECT 1.10 ng/dL Normal 0.76-1.46 [facility] Comment on above: Performed By: #### M 100.2000, M100.3200 #### [facility] [address] [place], [address] Thyroid Stim Hormone (TSH)on 10-25-2024 TSH 1.480 uIU/mL Normal 0.358-3.740 [facility] Comment on above: Performed By: #### L 506.0400, L506.1000, L500.4050, L501.9520, L100.0100 #### [facility] [address] [place], [address] Vitamin D,25 Hydroxyon 10-25 Vitamin D 25-OH 18.1 ng/mL Normal [facility] Comment on above: Result Comment: Linda min D 25(OH) Status Range Deficiency <20 ng/mL (50nmol/L) Insufficiency 20 - 30 ng/mL (50 - 75 nmol/L) Sufficiency 30 - 100 ng/mL (75 - 250 nmol/L) Toxicity >100 ng/mL (>250 nmol/L) Performed By: #### L 506.0400, L506.1000, L500.4050, L501.9520, L100.0100 #### [facility] [address] [place], [address] Chiropractic Reporton 2024 Chiropractic Report [facility] [address] [place] [address] OFFICE VISIT Date of Service: 10/09/24 MR#: [id number] Acct: [id number] Name: NATA QUEZADA Rep #: [id number] : 2000 Provider: TIRSO Mina Age/Sex: 23/F [facility] [facility] Status: Signed with Addenda ADDENDUM by TIRSO [...] and stiffness. She also complains of a pinching sensation in her right shoulder. She also complains of low back and stiffness. She rates her pain 5/10. Pt treats pain at home with heat and stretching. Patient denies any new injury, numbness, tingling, and radiculopathy. 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 factors: Timber Faller Pain Quality: aching and other (stiff) Exam [...] M99.01 - (more content not included)... Normal [facility] PAP I-G w/rfx hrHPV-Aptimaon 09-23-2024 ADEQ Comment Normal . [facility] Comment on above: Order Comment: Wiley escobedo Comment: [id number] Comment: Source.............Cervix;EndocervixSpecimen Comment: LMP / Prev Treat...[id number] Comment: No. of containers..01 ThinPrep Vial Result Comment: Sati sfactory for evaluation. No endocervical component is identified. Performed By: #### M 100.1999, M100.3200 #### [facility] [address] [facility] [address] [place], [place], [address] COMM . Normal . [facility] Comment on above: Order Comment: Wiley escobedo Comment: [id number] Comment: Source.............Cervix;EndocervixSpecimen Comment: LMP / Prev Treat...[id number] Comment: No. of containers..01 ThinPrep Vial Performed By: #### M 100.1999, M100.3200 #### [facility] [address] [facility] [address] [place], [place], [address] COMMENT Comment Normal . [facility] Comment on above: Order Comment: Speci men Comment: [id number] Comment: Source.............Cervix;EndocervixSpecimen Comment: LMP / Prev Treat...[id number]=[id number] Comment: No. of containers..01 ThinPrep Vial Result Comment: This liquid based ThinPrep(R) pap test was screened with the use of an image guided system. Performed By: #### M , M1.0 #### [facility] [address] [place], [place], [address] DIAG Comment Normal . [facility] Comment on above: Order Comment: Speci men Comment: [id number] Comment: Source.............Cervix;EndocervixSpecimen Comment: LMP / Prev Treat...[id number] Comment: No. of containers..01 ThinPrep Vial Result Comment: NEGA TIVE FOR INTRAEPITHELIAL LESION OR MALIGNANCY. Performed By: #### M , M1.3200 #### [facility] [address] [place], [place], [address] HPV RFLX Comment Normal . [facility] Comment on above: Order Comment: Speci men Comment: [id number] Comment: Source.............Cervix;EndocervixSpecimen Comment: LMP / Prev Treat...[id number] Comment: No. of containers..01 ThinPrep Vial Result Comment: The HPV DNA reflex criteria were not met with this specimen result therefore, no HPV testing was performed. Performed at: [address] [id number] Painter Sign Maintenance: Sylvie Dykes MD, Phone: [phone] Performed By: #### M , M1.0 #### [facility] [address] [place], [place], [address] PAPSMR Comment Normal . [facility] Comment on above: Order Comment: Speci men Comment: [id number] Comment: Source.............Cervix;EndocervixSpecimen Comment: LMP / Prev Treat...[id number] Comment: No. of containers..01 ThinPrep Vial Result Comment: The Pap smear is a screening test designed to aid in the detection of premalignant and malignant conditions of the uterine cervix. It is not a diagnostic procedure and should not be used as the sole means of detecting cervical cancer. Both false-positive and false-negative reports do occur. Performed By: #### M 100.1999, M100.3200 #### [facility] [address] [place], [place], [address] PERFORM Comment Normal . [facility] Comment on above: Order Comment: Speci men Comment: [id number] Comment: Source.............Cervix;EndocervixSpecimen Comment: LMP / Prev Treat...[id number] Comment: No. of containers..01 ThinPrep Vial Result Comment: Shannan Fuchs, Pulp Grinder Feeder (ASCP) Performed By: #### M 100.1999, M100.3200 #### [facility] [address] [place], [address] Ems Helicopter Pilot Office Visit Reporton 09-15-2024 Ems Helicopter Pilot Office Visit Report [facility] [address], [address] [place] [address] OFFICE VISIT Date of Service: 09/15/24 MR#: [id number] Acct: [id number] Name: NATA QUEZADA Rep #: [id number] : 2000 Provider: CHONG Oneill ams Age/Sex: 23/F [place] [facility] Status: Signed Intake Vital Signs 08/28/24 11:28 09/15/24 13:15 09/15/24 13:18 Height 5 ft 5 in 5 ft 5 in 5 ft 5 in Weight: 139 lb 130 lb BMI 23.1 21.6 BP 112/70 128/84 H Blood Pressure Location Lt brachial Position Sitting Intake 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) Coating Mixer Tender Required: No Is patient in pain?: No Allergies No Known Allergies Allergy (Unverified 09/15/24 13:16) Medications ???Medication ???Instructions ???Recorded ???Confirmed ???Type NK 08/28/24 09/15/24 History Is last menstrual period known: Yes Last Menstrual Period: 08/18/24 Post menopausal: No Patient : No : Yes Control Method: Yaya IUD [facility] Medical History Segmental dysfunction of lumbar region [...] Date Name GA/Weeks Outcome Route Bth Weight Gen Labor Lgth Anesthesia Del Locatn Provider FOB 07/28/23 Oseas 38 live - full term [place] HPI Encounter for routine gynecological examination Details: [...] the cervix (more content not included)... Normal [facility] Chiropractic Reporton 2023 Chiropractic Report [facility] [address] [place] [address] OFFICE VISIT Date of Service: 09/11/24 MR#: [id number] Acct: [id number] Name: DAINA QUEZADASA Rep #: [id number] : 2000 Provider: TIRSO Mina Age/Sex: 23/F Location[facility] Status: Signed with Addenda ADDENDUM by TIRSO Cm on 10/17/24 at 0759 Assessment Plan (1) Back pain: QUALIFIERS: Back pain location: low back pain Chronicity: acute Back pain laterality: bilateral Sciatica presence: without sciatica Qualified Code(s): M54.50 - Low back pain, unspecified 10/17/24 0759 Date Vani Cm D.C. cc: * Signed [...] Aggravating or associated factors: Lifting/Bending Relieving factors: Timber Faller Pain Quality: aching and other (stiff) Exam [...] Goals D (more content not included)... Normal [facility] Chiropractic Reporton 2023 Chiropractic Report [facility] [address] [place] [address] OFFICE VISIT Date of Service: 08/28/24 MR#: [id number] Acct: [id number] Name: NATA QUEZADA Rep #: [id number] : 2000 Provider: TIRSO Mina Age/Sex: 23/F Location[place] [facility] Status: Signed with Addenda ADDENDUM by TIRSO [...] by Esha Llanos) Smoking Status: Never smoker [facility] Chief Complaint: Back pain Visit Number: 1 [...] Plan (1) (more content not included)... Normal [facility] US Pelvison 07-12-2024 Indication Localization of IUD [...] Read By: Elizabeth Robertson M.D. 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 Natamitesh MILESESE presents today for IUD check. She had a Paraguard placed on 10/01/2023. She has had pain since placement. Patient reported ultrasound 07/11/2024, reported unable to locate strings. REVIEW OF SYSTEMS: PAIN ASSESSMENT: Negative for pain, history of chronic pain, or current treatment for a chronic pain condition. SENSITIVE EXAM: The sensitive examination was discussed with the Patient or Patient's Authorized Independent Jeweler. As applicable, any other physician, advance practice provider, medical student, or other health professional student that will be observing or involved in the sensitive examination for educational or training purposes was discussed with the Patient or Authorized Independent Jeweler. The Patient or Authorized Independent Jeweler has agreed to proceed with the sensitive [...] masses IMPRESSION/PLAN: IUD correctly positioned. Linda Márquez APRN.WIRE WEB WORKER Medical Decision Making: Problems: Low: Acute, uncomplicated [...] for Encounter Date Provider Department Center 07/11/2024 [id number], RENEE LEATHA [facility] Encounter Status:Closed by LINDA MÁRQUEZ on 07/11/24 Normal [facility] US Pelvison 07-11-2024 Radiology Study observation (narrative) [facility] Urine Cultureon 05-18-2024 URC Below infection lalito frausto Presumptive E. coli [place] Count <1000 Normal [facility] Comment on above: Performed By: #### M 100.2000, M100.3200 #### [facility] [address] [place], [address] UA DIP, URINE (POC)on 2023 BILIRUBIN UA (POCT) Small Abnormal Negative [facility] CLARITY UA (POCT) Clear [facility] COLOR UA (POCT) Yellow [facility] GLUCOSE UA (POCT) Negative Negative mg/dL [facility] Hemoglobin Ql (U) Moderate Abnormal Negative [facility] KETONE UA (POCT) Negative Negative mg/dL [facility] LEUKOCYTES UA (POCT) Negative Negative [facility] NITRITE UA (POCT) Positive Abnormal Negative [facility] PH UA (POCT) 6.0 4.5 - 8.0 [facility] Protein Ql (U) 30 mg/dL Abnormal Negative mg/dL [facility] SPECIFIC GRAVITY UA (POCT) >=1.030 1.005 - 1.030 [facility] UROBILINOGEN UA (POCT) 0.2 E.U./dL Normal E.U./dL [facility] Marly 08-20-2023 CNPN Telephone ([id number]) NATA PENALOZA ([id number]) 02 [facility] Date Time Provider Department 08/20/23 ADILIA KIRKPATRICK [id number] During your visit today, we recorded the following information about you: Adilia Kirkpatrick RN 08/20/2023 3:03 PM Signed OB Post Discharge Patient Call Back: Date: 08/20/2023 Patient Name: Nata Penaloza : 2000 Delivery Summary: Oseas Quezada [[id number]] Delivery Information: Delivery Date: 07/28/23 Delivery type: Vaginal, Spontaneous Delivering Clinician: Yodit Fuchs MD Vacuum Used: No Forceps Used: No Shoulder Dystocia Present: No Lacerations: 1st Episiotomy: None : Gender: Male Weight (grams): 2772 g One Minute : 9 Five Minute : 9 Patient was contacted after her inpatient discharge from [facility]. She reported the following as it relates [...] the patient. She reported the following. The (s) sleeps in: Bassinet Baby in need of a crib/Pxxw-wqe-Vqro: No Baby's feeding: Method: Human milk only. Breast Feeding Problems: Per aNta, no problems BF but is also starting to pump and feed the EBM back to baby via bottle. Frequency: Within Normal Limits Education: N/A Baby's elimination habits: Average wet diapers: Within Normal Limits Average dirty diapers: Within Normal Limits Education: N/A Follow-up appointments: Scheduled appointment with a pattern scratcher: Has seen Scheduled a follow up appointment [...] Encounter Status:Closed by ADILIA KIRKPATRICK on 08/20/23 [facility] CNVINCENTon 07-30-2023 [facility] HNO ID: [id number] Author: Delaney Durand APRN.[facility] Service: Obstetrics Author Type: Furnace Attendant Type: Discharge Summary Filed: 07/30/2023 7:28 AM Note Text: Attestation signed by Rhoda Foster DO at 07/30/2023 5:47 PM I reviewed the pertinent patient history, HPI, vitals, and hospital course and agree with the [facility]'s recommendation for care and disposition home. 07/29/23 [...] PROCEDURES/SURGERY DURING HOSPITALIZATION: Delivery Summary: Ruben Penaloza [[id number]] Delivery Information: Delivery Date: 07/28/23 Delivery type: [...] Chew Commonly known (more content not included)... Normal [facility] ANES POSTPROC EVALon 023 ANES POSTPROC EVAL HNO ID: [id number] Author: Huey Light APRN.LIABILITY ANALYST Service: Anesthesiology Author Type: Nurse Musical Instrument Maker Type: Anesthesia Postprocedure Evaluation Filed: 07/29/2023 7:15 AM Note Text: POST ANESTHESIA EVALUATION NOTE : 2000 Procedure Summary Date: 07/28/23 Room / Location: Anesthesia Start: 0205 Anesthesia Stop: 0948 Procedure: LABOR ANALGESIA Diagnosis: Scheduled Providers: Responsible Provider: Prachi Frederick APRN.CRNA Anesthesia Type: epidural ASA Status: 2 Anesthesia Type: epidural Last Vitals Vitals Value Taken Time BP 07/29/23 0714 Temp 07/29/23 0714 Pulse 07/29/23 0714 Resp 07/29/23 0714 SpO2 07/29/23 0714 Ruben Penaloza [[id number]] Baby Delivery: 07/28/2023 0948 Post Anesthesia Patient [...] Anesthesia Observations No Documentation SIGNATURE: Huey Light APRN.LIABILITY ANALYST PATIENT NAME: Nata Penaloza DATE: July 29, 2023 TIME: 7:14 AM CSN: [id number] [facility] 07-29-2023 [facility] Telephone (AGOBPOB) NATA PENALOZA ([id number]) 02 [facility] Date Time Provider Department 07/29/23 DELANEY DURAND During your visit today, we recorded the [...] Encounter Status:Closed by DELANEY DURAND on 07/29/23 [facility] ANES PRE-OPon 07-28-2023 ANES PRE-OP HNO ID: [id number] Author: Rodri French APRN.LIABILITY ANALYST Service: Anesthesiology Author Type: Nurse Musical Instrument Maker Type: Anesthesia Preprocedure Evaluation Filed: 07/28/2023 2:38 AM Note Text: OB ANESTHESIA PRE-PROCEDURE ASSESSMENT PATIENT NAME: Nata Penaloza : 2000 [facility] ANES TOOL OPERATOR: Previous OB anesthetic: None No OB anesthesia [...] Rfl: 2, Unknown Inpatient medications reviewed in [facility] I have interviewed and examined the patient. I have reviewed the medical record and/or the pre-anesthesia evaluation, pertinent labs, and test results. This contains updated information obtained within 48 hours of Surgery/Procedure. SIGNATURE: Rodri French APRN.CRNA PATIENT NAME: Nata Penaloza DATE: July 28, 2023 TIME: 2:37 AM : 2000 [facility] LD NOTEon 07-28-2023 LD NOTE HNO ID: [id number] Author: An Azevedo MD Service: Obstetrics Author Type: Resident Type: LANDD Delivery Note Filed: 07/28/2023 10:35 AM Note Text: Attestation signed by Yodit Fuchs MD at 07/29/2023 3:48 PM Attestation: I was present for the critical and garcia portions of the delivery on 07/28/2023 and I was immediately available to provide assistance. Yodit Fuchs MD OBSTETRICS DELIVERY SUMMARY - VAGINAL DELIVERY Gestational Age at Delivery: 38w5d Service Date: 07/28/2023 Service Time: 0948 Labor Events Rupture Date: 07/28/2023 Rupture Time: 4:40 AM Total Time from ROM to Delivery: 5h 08m Rupture Type: Prelabor ROM before Labor Onset GA >/= 37 wks Total Hours from ROM to Onset of Labor 1.33 hours Fluid Color: Clear Fluid Odor: No Odor Induction: Yes Induction Method: Misoprostol;Cervical Ripening Balloon (CRB);Oxytocin;AROM Ruben Penaloza Nata Lal [[id number]] Episiotomy/Laceration: Episiotomy: None Lacerations: 1st Perineal Repair Completed: Yes Sutures Used: 3-0 Rapid Absorbable, 4-0 Polyglactin 910 Date and Time of : Date of : 07/28/23 Time of : 0948 Delivery Information: Primary Reason for Delivery : [...] old year old female who presented to [facility] with Estimated Date of Delivery: 08/06/23 at [...] difficulty followed by the remainder of the 's body. The infant was crying spontaneously. Delayed cord clamping was [...] instrument counts were correct x2. A digital sweep of the vaginal canal was performed by [...] July 28, 2023 TIME: 10:[address] [facility] CBC W Auto Differential pane l (Bld)on 07-27-2023 Basophils (Bld) [#/Vol] 0.03 10*3/uL Normal <0.11 [facility] Comment on above: Order Comment: Speci men Type: BLOOD SPECIMEN Ordering Facility: [facility] Address: [address] [place] [address] Performed By: #### 5 7021-8 #### [facility] CLIA [id number] [address] [place] [address] [place] Basophils/100 WBC (Bld) 0.3 % Normal [facility] Comment on above: Order Comment: Speci men Type: BLOOD SPECIMEN Ordering Facility: [facility] Address: [address] [place] [address] Performed By: #### 5 7021-8 #### [facility] CLIA [id number] [address] [place] [address] [place] Differential cell count method Nom (Bld) Auto Normal [facility] Comment on above: Order Comment: Speci men Type: BLOOD SPECIMEN Ordering Facility: [facility] Address: [address] [place] [address] Performed By: #### 5 7021-8 #### [facility] CLIA [id number] [address] [place] Eosinophils (Bld) [#/Vol] 0.03 10*3/uL Normal <0.46 [facility] Comment on above: Order Comment: Speci men Type: BLOOD SPECIMEN Ordering Facility: [facility] Address: [address] [place] [address] Performed By: #### 5 7021-8 #### [facility] CLIA [id number] [address] [place] Eosinophils/100 WBC (Bld) 0.3 % Normal [facility] Comment on above: Order Comment: Speci men Type: BLOOD SPECIMEN Ordering Facility: [facility] Address: [address] [place] [address] Performed By: #### 5 7021-8 #### [facility] CLIA [id number] [address] [place] Erythrocyte distribution width (RBC) [Ratio] 11.9 % Normal 11.5-15.0 [facility] Comment on above: Order Comment: Speci men Type: BLOOD SPECIMEN Ordering Facility: [facility] Address: [address] [place] [address] Performed By: #### 5 7021-8 #### [facility] CLIA [id number] [address] [place] Hematocrit (Bld) [Volume fraction] 39.6 % Normal 36.0-46.0 [facility] Comment on above: Order Comment: Speci men Type: BLOOD SPECIMEN Ordering Facility: [facility] Address: [address] [place] [address] Performed By: #### 5 7021-8 #### [facility] CLIA [id number] [address] [place] Hemoglobin (Bld) [Mass/Vol] 13.8 g/dL Normal 11.5-15.5 [facility] Comment on above: Order Comment: Speci men Type: BLOOD SPECIMEN Ordering Facility: [facility] Address: [address] [place] [address] Performed By: #### 5 7021-8 #### [facility] CLIA [id number] [address] [place] Immature granulocytes (Bld) [#/Vol] 0.03 10*3/uL Normal <0.10 [facility] Comment on above: Order Comment: Speci men Type: BLOOD SPECIMEN Ordering Facility: [facility] Address: [address] [place] [address] Performed By: #### 5 7021-8 #### [facility] CLIA [id number] [address] Immature granulocytes/100 WBC (Bld) 0.3 % Normal [facility] Comment on above: Order Comment: Speci men Type: BLOOD SPECIMEN Ordering Facility: [facility] Address: [address] [place] [address] Performed By: #### 5 7021-8 #### [facility] CLIA [id number] [address] [place] Lymphocytes (Bld) [#/Vol] 1.58 10*3/uL Normal 1.00-4.00 [facility] Comment on above: Order Comment: Speci men Type: BLOOD SPECIMEN Ordering Facility: [facility] Address: [address] [place] [address] Performed By: #### 5 7021-8 #### [facility] CLIA [id number] [address] Lymphocytes/100 WBC (Bld) 16.7 % Normal [facility] Comment on above: Order Comment: Speci men Type: BLOOD SPECIMEN Ordering Facility: [facility] Address: [address] [place] [address] Performed By: #### 5 7021-8 #### [facility] CLIA [id number] [address] [place] MCH (RBC) [Entitic mass] 29.9 pg Normal 26.0-34.0 [facility] Comment on above: Order Comment: Speci men Type: BLOOD SPECIMEN Ordering Facility: [facility] Address: [address] [place] [address] Performed By: #### 5 7021-8 #### [facility] CLIA [id number] [address] MCHC (RBC) [Mass/Vol] 34.8 g/dL Normal 30.5-36.0 [facility] Comment on above: Order Comment: Speci men Type: BLOOD SPECIMEN Ordering Facility: [facility] Address: [address] [place] [address] Performed By: #### 5 7021-8 #### [facility] CLIA [id number] [address] MCV (RBC) [Entitic vol] 85.9 fL Normal 80.0-100.0 [facility] Comment on above: Order Comment: Speci men Type: BLOOD SPECIMEN Ordering Facility: [facility] Address: [address] [place] [address] Performed By: #### 5 7021-8 #### [facility] CLIA [id number] [address] [place] Monocytes (Bld) [#/Vol] 0.69 10*3/uL Normal <0.87 [facility] Comment on above: Order Comment: Speci men Type: BLOOD SPECIMEN Ordering Facility: [facility] Address: [address] [place] [address] Performed By: #### 5 7021-8 #### [facility] CLIA [id number] [address] Monocytes/100 WBC (Bld) 7.3 % Normal [facility] Comment on above: Order Comment: Speci men Type: BLOOD SPECIMEN Ordering Facility: [facility] Address: [address] [place] [address] Performed By: #### 5 7021-8 #### [facility] CLIA [id number] [address] [place] Neutrophils (Bld) [#/Vol] 7.08 10*3/uL Normal 1.45-7.50 [facility] Comment on above: Order Comment: Speci men Type: BLOOD SPECIMEN Ordering Facility: [facility] Address: [address] [place] [address] Performed By: #### 5 7021-8 #### [facility] CLIA [id number] [address] STATES OF [facility] Neutrophils/100 WBC (Bld) 75.1 % Normal [facility] Comment on above: Order Comment: Speci men Type: BLOOD SPECIMEN Ordering Facility: [facility] Address: [address] [place] [address] Performed By: #### 5 7021-8 #### [facility] CLIA [id number] [address] [place] Nucleated RBC (Bld) [#/Vol] 10*3/uL Normal <0.01 [facility] Comment on above: Order Comment: Speci men Type: BLOOD SPECIMEN Ordering Facility: [facility] Address: [address] [place] [address] Performed By: #### 5 7021-8 #### [facility] CLIA [id number] [address] [place] Nucleated RBC/100 WBC (Bld) [Ratio] 0.0 /[address] [facility] Comment on above: Order Comment: Speci men Type: BLOOD SPECIMEN Ordering Facility: [facility] Address: [address] [place] [address] Performed By: #### 5 7021-8 #### [facility] CLIA [id number] [address] [place] Platelet mean volume (Bld) [Entitic vol] 12.3 fL Normal 9.0-12.7 [facility] Comment on above: Order Comment: Speci men Type: BLOOD SPECIMEN Ordering Facility: [facility] Address: [address] [place] [address] Performed By: #### 5 7021-8 #### [facility] CLIA [id number] [address] [place] Platelets (Bld) [#/Vol] 215 10*3/uL Normal 150-400 [facility] Comment on above: Order Comment: Speci men Type: BLOOD SPECIMEN Ordering Facility: [facility] Address: [address] [place] [address] Performed By: #### 5 7021-8 #### [facility] CLIA [id number] [address] OF [facility] RBC (Bld) [#/Vol] 4.61 10*6/uL Normal 3.90-5.20 [facility] Comment on above: Order Comment: Speci men Type: BLOOD SPECIMEN Ordering Facility: [facility] Address: [address] [place] [address] Performed By: #### 5 7021-8 #### [facility] CLIA [id number] [address] OF [facility] WBC (Bld) [#/Vol] 9.44 10*3/uL Normal 3.70-11.00 [facility] Comment on above: Order Comment: Speci men Type: BLOOD SPECIMEN Ordering Facility: [facility] Address: [address] [place] [address] Performed By: #### 5 7021-8 #### [facility] CLIA [id number] [address] OF [facility] Comprehensive metabolic 2000 panelon 07-27-2023 Albumin [Mass/Vol] 3.7 g/dL Low 3.9-4.9 [facility] Comment on above: Order Comment: Speci men Type: BLOOD SPECIMENOrdering Facility: [facility] Address: [address] [place] [address] Performed By: #### 2 4323-8 ####[facility] [id number] [address] OF [facility] ALP [Catalytic activity/Vol] 251 U/L High 34-123 [facility] Comment on above: Order Comment: Speci men Type: BLOOD SPECIMENOrdering Facility: [facility] Address: [address] [place] [address] Performed By: #### 2 4323-8 ####[facility] [id number] [place] [address] [place] ALT With P-5'-P [Catalytic activity/Vol] 16 U/L Normal 7-38 [facility] Comment on above: Order Comment: Speci men Type: BLOOD SPECIMENOrdering Facility: [facility] Address: [address] [place] [address] Performed By: #### 2 4323-8 ####[facility] [id number] [place] [address] [place] Anion gap [Moles/Vol] 12 mmol/L Normal 9-18 [facility] Comment on above: Order Comment: Speci men Type: BLOOD SPECIMENOrdering Facility: [facility] Address: [address] [place] [address] Performed By: #### 2 4323-8 ####[facility] [id number] [place] [address] [place] AST With P-5'-P [Catalytic activity/Vol] 21 U/L Normal 13-35 [facility] Comment on above: Order Comment: Speci men Type: BLOOD SPECIMENOrdering Facility: [facility] Address: [address] [place] [address] Performed By: #### 2 4323-8 ####[facility] [id number] [place] [address] [place] Bilirubin [Mass/Vol] 0.2 mg/dL Normal 0.2-1.3 [facility] Comment on above: Order Comment: Speci men Type: BLOOD SPECIMENOrdering Facility: [facility] Address: [address] [place] [address] Performed By: #### 2 4323-8 ####[facility] [id number] [place] [address] [place] Calcium [Mass/Vol] 9.1 mg/dL Normal 8.5-10.2 [facility] Comment on above: Order Comment: Speci men Type: BLOOD SPECIMENOrdering Facility: [facility] Address: [address] [place] [address] Performed By: #### 2 4323-8 ####[facility] [id number] [address] Chloride [Moles/Vol] 104 mmol/L Normal 97-105 [facility] Comment on above: Order Comment: Speci men Type: BLOOD SPECIMENOrdering Facility: [facility] Address: [address] [place] [address] Performed By: #### 2 4323-8 ####[facility] [id number] [address] [place] CO2 [Moles/Vol] 21 mmol/L Low 22-30 [facility] Comment on above: Order Comment: Speci men Type: BLOOD SPECIMENOrdering Facility: [facility] Address: [address] [place] [address] Performed By: #### 2 4323-8 ####[facility] [id number] [address] STATES OF [facility] Creatinine [Mass/Vol] 0.58 mg/dL Normal 0.58-0.96 [facility] Comment on above: Order Comment: Speci men Type: BLOOD SPECIMENOrdering Facility: [facility] Address: [address] [place] [address] Performed By: #### 2 4323-8 ####[facility] [id number] [address] Creatinine and Glomerular filtration rate.predicted panel (S/P/Bld) 133 mL/min/1.73m??? Normal >=60 [facility] Comment on above: Order Comment: Speci men Type: BLOOD SPECIMENOrdering Facility: [facility] Address: [address] [place] [address] Result Comment: Isela mated Glomerular Filtration Rate [...] actual GFR. Performed By: #### 2 4323-8 ####[facility] [id number] [place] [id number] [place] Glucose [Mass/Vol] 88 mg/dL Normal 74-99 [facility] Comment on above: Order Comment: Speci fanny Type: BLOOD SPECIMENOrdering Facility: [facility] Address: [address] [place] [address] Result Comment: The [place] [employer] (ADA) provides guidance for cutoff [...] Standards of Medical Care in Diabetes 2016, [place] [employer]. Diabetes Care. 2016.39(Suppl 1). Performed By: #### 2 4323-8 ####[facility] [id number] [place] [address] [place] Potassium [Moles/Vol] 3.8 mmol/L Normal 3.7-5.1 [facility] Comment on above: Order Comment: Wiley fanny Type: BLOOD SPECIMENOrdering Facility: [facility] Address: [address] [place] [address] Performed By: #### 2 4323-8 ####[facility]ORY[facility]IA [id number] [place] [address] [place] Protein [Mass/Vol] 6.5 g/dL Normal 6.3-8.0 [facility] Comment on above: Order Comment: Wiley fanny Type: BLOOD SPECIMENOrdering Facility: [facility] Address: [address] [place] [address] Performed By: #### 2 4323-8 ####[facility]IA [id number] [address] Sodium [Moles/Vol] 137 mmol/L Normal 136-144 [facility] Comment on above: Order Comment: Wiley escobedo Type: BLOOD SPECIMENOrdering Facility: [facility] Address: [address] [place] [address] Performed By: #### 2 4323-8 ####[facility]ORYCLIA [id number] [place] [id number] [facility] Urea nitrogen [Mass/Vol] 13 mg/dL Normal 7-21 [facility] Comment on above: Order Comment: Wiley escobedo Type: BLOOD SPECIMENOrdering Facility: [facility] Address: [place] [address] Performed By: #### 2 4323-8 ####[facility]ORYCLIA [id number] [address] OF [facility] HISTORY PHYSICALon HISTORY PHYSICAL HNO ID: [id number] Author: Leelee Saini MD Service: Obstetrics Author [...] HT/WT/BMI: Height Weight BMI 162.6 cm (5' 4) 73.9 kg (163 lb) 27.98 PHYSICAL EXAM: General: WD, WN HEENT: sclera white, pupils equal Lungs: normal respiratory effort Heart: Appears well perfused Abdomen: soft, nontender, gravid Uterus: soft, NT Extremities: no edema CERVICAL EXAM: Dilation: 2 (07/27/231807 : Leelee Saini MD) cm Station: -3 (07/27/231807 : Leelee Saini MD) Effacement: 50 (07/27/231807 : Leelee Saini MD) % Position: Cephalic Pelvimetry: Pelvimetry clinically assessed as adequate MONITORING/ASSESSMENT: Baseline: 135 Variability: Moderate (6-25 bpm) Accelerations: Present Decelerations: None Contractions: Irregular Frequency: Irregular NST Interpretation: Category I EFW: AND lbs based on lizbeth's ULTRASOUND: US findings: Head position: cephalic, (more content not included)... Normal [facility] TYPE + SCREEN PRENATALon ABO B Normal [facility] Comment on above: Order Comment: Speci men Type: BLOOD SPECIMENOrdering Facility: [facility] Address: [address] [place] [address] Performed By: #### T SPN ####[facility]ANKCLIA [id number] [address] HISTORICAL AB SCR STATUS Negative Normal [facility] Comment on above: Order Comment: Speci men Type: BLOOD SPECIMENOrdering Facility: [facility] Address: [address] [place] [address] Performed By: #### T SPN ####[facility]CLIA [id number] [address] Rh Nom (Bld) Positive Normal [facility] Comment on above: Order Comment: Speci men Type: BLOOD SPECIMENOrdering Facility: [facility] Address: [address] [place] [address] Performed By: #### T SPN ####[facility]CLIA [id number] [address] TYPE AND SCREEN EXPIRATION 07/30/2023 23:[address] [facility] Comment on above: Order Comment: Speci men Type: BLOOD SPECIMENOrdering Facility: [facility] Address: [address] [place] [address] Performed By: #### T SPN ####[facility]ANKCLIA [id number] [address] CBC panel Auto (Bld)on 07-26 Erythrocyte distribution width (RBC) [Ratio] 11.9 % Normal 11.5-15.0 [facility] Comment on above: Order Comment: Speci men Type: BLOOD SPECIMEN Ordering Facility: [facility] Address: [address] [place] [address] Performed By: #### 5 8410-2 #### [facility] CLIA [id number] [address] Hematocrit (Bld) [Volume fraction] 39.1 % Normal 36.0-46.0 [facility] Comment on above: Order Comment: Speci men Type: BLOOD SPECIMEN Ordering Facility: [facility] Address: [address] [place] [address] Performed By: #### 5 8410-2 #### [facility] CLIA [id number] [address] OF [facility] Hemoglobin (Bld) [Mass/Vol] 13.8 g/dL Normal 11.5-15.5 [facility] Comment on above: Order Comment: Speci men Type: BLOOD SPECIMEN Ordering Facility: [facility] Address: [address] [place] [address] Performed By: #### 5 8410-2 #### [facility] CLIA [id number] [address] STATES OF [facility] MCH (RBC) [Entitic mass] 30.3 pg Normal 26.0-34.0 [facility] Comment on above: Order Comment: Speci men Type: BLOOD SPECIMEN Ordering Facility: [facility] Address: [address] [place] [address] Performed By: #### 5 8410-2 #### [facility] CLIA [id number] [address] STATES OF [facility] MCHC (RBC) [Mass/Vol] 35.3 g/dL Normal 30.5-36.0 [facility] Comment on above: Order Comment: Speci men Type: BLOOD SPECIMEN Ordering Facility: [facility] Address: [address] [place] [address] Performed By: #### 5 8410-2 #### [facility] CLIA [id number] [address] MCV (RBC) [Entitic vol] 85.7 fL Normal 80.0-100.0 [facility] Comment on above: Order Comment: Speci men Type: BLOOD SPECIMEN Ordering Facility: [facility] Address: [address] [place] [address] Performed By: #### 5 8410-2 #### [facility] CLIA [id number] [address] [place] [address] [place] Nucleated RBC (Bld) [#/Vol] 10*3/uL Normal <0.01 [facility] Comment on above: Order Comment: Speci men Type: BLOOD SPECIMEN Ordering Facility: [facility] Address: [address] [place] [address] Performed By: #### 5 8410-2 #### [facility] CLIA [id number] [address] [place] [address] [place] Platelet mean volume (Bld) [Entitic vol] 12.3 fL Normal 9.0-12.7 [facility] Comment on above: Order Comment: Speci men Type: BLOOD SPECIMEN Ordering Facility: [facility] Address: [address] [place] [address] Performed By: #### 5 8410-2 #### [facility] CLIA [id number] [address] [place] Platelets (Bld) [#/Vol] 211 10*3/uL Normal 150-400 [facility] Comment on above: Order Comment: Speci men Type: BLOOD SPECIMEN Ordering Facility: [facility] Address: [address] [place] [address] Performed By: #### 5 8410-2 #### [facility] CLIA [id number] [address] [place] RBC (Bld) [#/Vol] 4.56 10*6/uL Normal 3.90-5.20 [facility] Comment on above: Order Comment: Speci men Type: BLOOD SPECIMEN Ordering Facility: [facility] Address: [address] [place] [address] Performed By: #### 5 8410-2 #### [facility] CLIA [id number] [address] [place] WBC (Bld) [#/Vol] 11.02 10*3/uL High 3.70-11.00 [facility] Comment on above: Order Comment: Speci men Type: BLOOD SPECIMEN Ordering Facility: [facility] Address: [address] [place] [address] Performed By: #### 5 8410-2 #### [facility] CLIA [id number] [address] Comprehensive metabolic 2000 panelon 07-26-2023 Albumin [Mass/Vol] 3.7 g/dL Low 3.9-4.9 [facility] Comment on above: Order Comment: Speci men Type: BLOOD SPECIMEN Ordering Facility: [facility] Address: [address] [place] [address] Performed By: #### 2 4323-8 #### [facility] CLIA [id number] [address] ALP [Catalytic activity/Vol] 247 U/L High 34-123 [facility] [facility] Comment on above: Order Comment: Speci men Type: BLOOD SPECIMEN Ordering Facility: [facility] Address: [address] [place] [address] Performed By: #### 2 4323-8 #### [facility] CLIA [id number] [address] STATES OF [facility] ALT With P-5'-P [Catalytic activity/Vol] 15 U/L Normal 7-38 [facility] Comment on above: Order Comment: Speci men Type: BLOOD SPECIMEN Ordering Facility: [facility] Address: [address] [place] [address] Performed By: #### 2 4323-8 #### [facility] CLIA [id number] [address] Anion gap [Moles/Vol] 14 mmol/L Normal 9-18 [facility] Comment on above: Order Comment: Speci men Type: BLOOD SPECIMEN Ordering Facility: [facility] Address: [address] [place] [address] Performed By: #### 2 4323-8 #### [facility] CLIA [id number] [address] OF [place] AST With P-5'-P [Catalytic activity/Vol] 19 U/L Normal 13-35 [facility] Comment on above: Order Comment: Speci men Type: BLOOD SPECIMEN Ordering Facility: [facility] Address: [address] [place] [address] Performed By: #### 2 4323-8 #### [facility] CLIA [id number] [address] STATES OF [place] Bilirubin [Mass/Vol] 0.2 mg/dL Normal 0.2-1.3 [facility] Comment on above: Order Comment: Speci men Type: BLOOD SPECIMEN Ordering Facility: [facility] Address: [address] [place] [address] Performed By: #### 2 4323-8 #### [facility] CLIA [id number] [address] STATES [place] Calcium [Mass/Vol] 9.0 mg/dL Normal 8.5-10.2 [facility] Comment on above: Order Comment: Speci men Type: BLOOD SPECIMEN Ordering Facility: [facility] Address: [address] [place] [address] Performed By: #### 2 4323-8 #### [facility] CLIA [id number] 1 [place] [address] [place] Chloride [Moles/Vol] 101 mmol/L Normal 97-105 [facility] Comment on above: Order Comment: Speci men Type: BLOOD SPECIMEN Ordering Facility: [facility] Address: [address] [place] [address] Performed By: #### 2 4323-8 #### [facility] CLIA [id number] 1 [place] [address] [place] CO2 [Moles/Vol] 20 mmol/L Low 22-30 [facility] Comment on above: Order Comment: Speci men Type: BLOOD SPECIMEN Ordering Facility: [facility] Address: [address] [place] [address] Performed By: #### 2 4323-8 #### [facility] CLIA [id number] [address] STATES [place] Creatinine [Mass/Vol] 0.54 mg/dL Low 0.58-0.96 [facility] Comment on above: Order Comment: Wiley escobedo Type: BLOOD SPECIMEN Ordering Facility: [facility] Address: [address] [place] [address] Performed By: #### 2 4323-8 #### [facility] CLIA [id number] [address] [place] Creatinine and Glomerular filtration rate.predicted panel (S/P/Bld) 135 mL/min/1.73m??? Normal >=60 [facility] Comment on above: Order Comment: Wiley escobedo Type: BLOOD SPECIMEN Ordering Facility: [facility] Address: [address] [place] [address] Result Comment: Isela mated Glomerular Filtration Rate [...] GFR. Performed By: #### 2 4323-8 #### [facility] CLIA [id number] [address] [place] [address] [place] Glucose [Mass/Vol] 71 mg/dL Low 74-99 [facility] Comment on above: Order Comment: Wiley escobedo Type: BLOOD SPECIMEN Ordering Facility: [facility] Address: [address] [place] [address] Result Comment: The [place] Diabetes Association (ADA) provides guidance for cutoff [...] Standards of Medical Care in Diabetes 2016, [place] Diabetes Association. Diabetes Care. 2016.39(Suppl 1). Performed By: #### 2 4323-8 #### [facility] CLIA [id number] [address] [place] Potassium [Moles/Vol] 3.7 mmol/L Normal 3.7-5.1 [facility] Comment on above: Order Comment: Speci men Type: BLOOD SPECIMEN Ordering Facility: [facility] Address: [address] [place] [address] Performed By: #### 2 4323-8 #### [facility] CLIA [id number] [address] [place] Protein [Mass/Vol] 6.8 g/dL Normal 6.3-8.0 [facility] Comment on above: Order Comment: Speci men Type: BLOOD SPECIMEN Ordering Facility: [facility] Address: [address] [place] [address] Performed By: #### 2 4323-8 #### [facility] CLIA [id number] [address] [place] Sodium [Moles/Vol] 135 mmol/L Low 136-144 [facility] Comment on above: Order Comment: Speci men Type: BLOOD SPECIMEN Ordering Facility: [facility] Address: [address] [place] [address] Performed By: #### 2 4323-8 #### [facility] CLIA [id number] [address] [place] Urea nitrogen [Mass/Vol] 13 mg/dL Normal 7-21 [facility] Comment on above: Order Comment: Speci men Type: BLOOD SPECIMEN Ordering Facility: [facility] Address: [address] [place] [address] Performed By: #### 2 4323-8 #### [facility] CLIA [id number] [address] [place] Prot/Creat Uron 07-26-2023 Protein/Creatinine (U) [Mass ratio] 0.11 mg/mg Normal <0.15 [facility] Comment on above: Order Comment: Speci men Type: URINE SPECIMEN Ordering Facility: [facility] Address: [address] [place], [place] [id number] Result Comment: Adul t Proteinuria Categories: <0.15 mg/mg is considered normal to mildly increased 0.15 - 0.50 mg/mg is considered moderately increased >0.50 mg/mg is considered severely increased KDIGO. (2013). KDIGO 2012 Clinical Practice Guideline for the Evaluation and Management of Chronic Kidney Disease. Official Journal of the International Society of Nephrology, 3(1), 1-150. Performed By: #### 2 890-2 #### [facility] CLIA [id number] [address] [place] [address] [place] Protein/Creatinine (U) [Mass ratio]on 07-26-2023 Creatinine (U) [Mass/Vol] 56.9 mg/dL Normal 42.2-237.9 [facility] Comment on above: Order Comment: Speci men Type: URINE SPECIMEN Ordering Facility: [facility] Address: [address] [place] [address] Performed By: #### 2 890-2 #### [facility] CLIA [id number] [address] [place] [address] [place] Protein (U) [Mass/Vol] 6 mg/dL Normal 0-20 [facility] Comment on above: Order Comment: Speci men Type: URINE SPECIMEN Ordering Facility: [facility] Address: [address] [place] [address] Performed By: #### 2 890-2 #### [facility] CLIA [id number] [address] [place] [address] [place] Prot/Creat Uron 07-23-2023 Protein/Creatinine (U) [Mass ratio] 0.10 mg/mg Normal <0.15 [facility] Comment on above: Order Comment: Speci men Type: URINE SPECIMEN Ordering Facility: [facility] Address: [address] [place] [address] Result Comment: Adul t Proteinuria Categories: <0.15 mg/mg is considered normal to mildly increased 0.15 - 0.50 mg/mg is considered moderately increased >0.50 mg/mg is considered severely increased KDIGO. (2013). KDIGO 2012 Clinical Practice Guideline for the Evaluation and Management of Chronic Kidney Disease. Official Journal of the International Society of Nephrology, 3(1), 1-150. Performed By: #### 2 890-2 #### [facility] CLIA [id number] [address] [place] [address] [place] Protein/Creatinine (U) [Mass ratio]on 07-23-2023 Creatinine (U) [Mass/Vol] 420.4 mg/dL High 20.0-300.0 [facility] Comment on above: Order Comment: Speci men Type: URINE SPECIMEN Ordering Facility: [facility] Address: [address] [place] [address] Performed By: #### 2 890-2 #### [facility] CLIA [id number] [address] [place] [address] [place] Protein (U) [Mass/Vol] 41 mg/dL High 0-20 [facility] Comment on above: Order Comment: Speci men Type: URINE SPECIMEN Ordering Facility: [facility] Address: [address] [place] [address] Performed By: #### 2 890-2 #### [facility] CLIA [id number] [address] [place] [address] [place] URINE OB DIP B/Oon 3 Glucose Ql (U) Negative Neg mg/dL [facility] Protein.monoclonal (U) [Mass/Vol] 30 mg/dL Abnormal Neg mg/dL [facility] URINE OB DIP B/Oon 3 Glucose Ql (U) Negative Neg mg/dL [facility] Protein.monoclonal (U) [Mass/Vol] Trace Neg mg/dL [facility] URINE OB DIP B/Oon 3 Glucose Ql (U) Negative Neg mg/dL [facility] Protein.monoclonal (U) [Mass/Vol] Negative Neg mg/dL [facility] Reagin and Treponema pallidu m IgG and IgM [Interp]on 06-26-2023 T. pallidum IgG+IgM IA Ql (S) Non-Reactive Nonreactive [facility] SYPHILIS TOTAL W/REFLEXon Reagin and Treponema pallidum IgG and IgM [Interp] Cannot exclude recent Treponemal infection if specimen collected within 7-10 days after appearance of suspect lesions or 2-3 weeks after an exposure. Clinical correlation is required. [facility] CBC panel Auto (Bld)on 06-25 Erythrocyte distribution width (RBC) [Ratio] 12.2 % 11.5 - 15.0 % [facility] Hematocrit (Bld) [Volume fraction] 36.0 % 36.0 - 46.0 % [facility] Hemoglobin (Bld) [Mass/Vol] 13.1 g/dL 11.5 - 15.5 g/dL [facility] MCH (RBC) [Entitic mass] 31.3 pg 26.0 - 34.0 pg [facility] MCHC (RBC) [Mass/Vol] 36.4 g/dL High 30.5 - 36.0 g/dL [facility] MCV (RBC) [Entitic vol] 85.9 fL 80.0 - 100.0 fL [facility] Nucleated RBC (Bld) [#/Vol] <0.01 k/uL [facility] Platelet mean volume (Bld) [Entitic vol] 11.7 fL 9.0 - 12.7 fL [facility] Platelets (Bld) [#/Vol] 208 10*3/uL 150 - 400 k/uL [facility] RBC (Bld) [#/Vol] 4.19 10*6/uL 3.90 - 5.20 m/uL [facility] WBC (Bld) [#/Vol] 9.19 10*3/uL 3.70 - 11.00 k/u L [facility] Comprehensive metabolic 2000 panelon 06-25-2023 Albumin [Mass/Vol] 3.5 g/dL Low 3.9 - 4.9 g/dL Cl [facility] ALP [Catalytic activity/Vol] 160 U/L High 34 - 123 U/L [facility] ALT [Catalytic activity/Vol] 22 U/L 7 - 38 U/L [facility] Anion gap [Moles/Vol] 14 mmol/L 9 - 18 mmol/L [facility] AST [Catalytic activity/Vol] 18 U/L 13 - 35 U/L [facility] Bilirubin [Mass/Vol] 0.2 mg/dL 0.2 - 1.3 mg/dL [facility] Calcium [Mass/Vol] 8.7 mg/dL 8.5 - 10.2 mg/dL [facility] Chloride [Moles/Vol] 103 mmol/L 97 - 105 mmol/L [facility] CO2 [Moles/Vol] 21 mmol/L Low 22 - 30 mmol/L [facility] Creatinine [Mass/Vol] 0.53 mg/dL Low 0.58 - 0.96 mg/dL [facility] Estimated Glomerular Filtration Rate 136 mL/min/1.73m >=60 mL/min/1.73m [facility] Glucose [Mass/Vol] 124 mg/dL High 74 - 99 mg/dL [facility] Potassium [Moles/Vol] 3.5 mmol/L Low 3.7 - 5.1 mmol/L [facility] Protein [Mass/Vol] 6.2 g/dL Low 6.3 - 8.0 g/dL Cl [facility] Sodium [Moles/Vol] 138 mmol/L 136 - 144 mmol/L [facility] Urea nitrogen [Mass/Vol] 9 mg/dL 7 - 21 mg/dL [facility] URINE OB DIP B/Oon 3 Glucose Ql (U) Negative Neg mg/dL [facility] Protein.monoclonal (U) [Mass/Vol] TRACE Abnormal Neg mg/dL [facility] STREP A MOLECULAR (POC)on Procedural Control Valid [facility] Strep A (POCT) Negative Negative [facility] URINE OB DIP B/Oon 3 Glucose Ql (U) Negative Neg mg/dL [facility] Protein.monoclonal (U) [Mass/Vol] Negative Neg mg/dL [facility] COVID NAAT, ROUTINEon 2022 SARS-CoV-2 (COVID-19) RNA TESS+probe Ql (Resp) Not detected See comment [facility] ROUTINE FLU A/B + RSVon 05-04 FLUAV RNA TESS+probe Ql (Unsp spec) Not detected Not Detected [facility] FLUBV RNA TESS+probe Ql (Unsp spec) Not detected Not Detected [facility] RSV A RNA TESS+probe Ql (Unsp spec) Not detected Not Detected [facility] STREP A MOLECULAR (POC)on Procedural Control Valid [facility] Strep A (POCT) Negative Negative [facility] URINE OB DIP B/Oon 3 Glucose Ql (U) Negative Neg mg/dL [facility] Protein.monoclonal (U) [Mass/Vol] Negative Neg mg/dL [facility] OBSTETRIC ULTRASOUND WHIon 0 03-19-2023 [facility] URINE OB DIP B/Oon 3 Glucose Ql (U) Negative Neg mg/dL [facility] Protein.monoclonal (U) [Mass/Vol] Negative Neg mg/dL [facility] [id number] PLUSon 01-25-2023 Cell-free DNA./Cell-free DNA.total Dosage of chromosome-specific cfDNA (cfDNA) [Molar fraction] 6% Normal [facility] Comment on above: Order Comment: Speci men Type: BLOOD SPECIMEN Ordering Facility: [facility] Address: [address] [place] [address] Performed By: #### M AT21 #### [facility] CLIA [id number] [address] [place] [address] Chr 13+18+21+X+Y aneuploidy Dosage of chromosome-specific cfDNA Ql (cfDNA) Negative Normal [facility] Comment on above: Order Comment: Speci men Type: BLOOD SPECIMEN Ordering Facility: [facility] Address: [address] [place] [address] Performed By: #### M AT21 #### [facility] CLIA [id number] [address] [place] [address]1221 Chr 21 trisomy Dosage of chromosome-specific cfDNA Ql (cfDNA) Negative Normal [facility] Comment on above: Order Comment: Speci men Type: BLOOD SPECIMEN Ordering Facility: [facility] Address: [address] [place] [address] Performed By: #### M AT21 #### [facility] CLIA [id number] [address] [place] [address] 91960 Chr X and Y aneuploidy risk Sequencing Ql (cfDNA) [Interp] Not detected Normal [facility] Comment on above: Order Comment: Speci men Type: BLOOD SPECIMEN Ordering Facility: [facility] Address: [address] [place] [address] Result Comment: Not Detected Not Detected Performed By: #### M AT21 #### [facility] CLIA [id number] [address] [place] [place] [id number] Citation Andrew (Reference lab test) Comment [facility] Comment on above: Order Comment: Wiley escobedo Type: BLOOD SPECIMEN Ordering Facility: [facility] Address: [address] [place] [address] Result Comment: 1. P lazaro KELLER, et al. Ana Med. 2012;14(3):296-305. 2. Cherelle MAGANA et al. Prenat Diag. 2013;33(6):591-597. 3. Mohit C, et al. Clin Chem. 2015 Apr;61(4):608-616. 4. Jax KELLER, et al. Ana Med. 2011;13(11):913-920. 5. ACOG/[facility] Practice Bulletin No. 226, Jul 2020. Performed By: #### M AT21 #### [facility] CLIA [id number] [address] [place] [address] Gestational age Estimated from conception date Senior [facility] Comment on above: Order Comment: Wiley escobedo Type: BLOOD SPECIMEN Ordering Facility: [facility] Address: [address] [place] [address] Performed By: #### M AT21 #### [facility] CLIA [id number] [address] [place] [address] GESTATIONALAGE AGE > OR = 9W Yes [facility] Comment on above: Order Comment: Speci men Type: BLOOD SPECIMEN Ordering Facility: [facility] Address: [address] [place] [address] Performed By: #### M AT21 #### [facility] CLIA [id number] [address] [place] [address] Laboratory comment Andrew (Report) Comment [facility] Comment on above: Order Comment: Wiley escobedo Type: BLOOD SPECIMEN Ordering Facility: [facility] Address: [address] [place] [address] Result Comment: The MaterniT(R) 21 PLUS laboratory-developed test (LDT) analyzes circulating cell-free DNA from a maternal blood sample. This test is used for screening purposes and not diagnostic. Clinical correlation is recommended. Validation data on twin pregnancies is limited and the ability of this test to detect aneuploidy in higher multiple gestations has not yet been validated. Performed By: #### M AT21 #### [facility] CLIA [id number] [address] [place] [address] director medicare sales name Nom (Provider) Comment [facility] Comment on above: Order Comment: Wiely escobedo Type: BLOOD SPECIMEN Ordering Facility: [facility] Address: [address] [place] [address] Result Comment: This specimen showed an expected representation of chromosome 21, 18 and 13 material. Clinical correlation is suggested. Comment Jorge Bhatti MD, PhD, Director, [facility] Performed By: #### M AT21 #### [facility] CLIA [id number] [address] [place] [address] LIMITATIONS OF THE TEST Comment [facility] Comment on above: Order Comment: Wiley escobedo Type: BLOOD SPECIMEN Ordering Facility: [facility] Address: [address] [place] [address] Result Comment: Whraghu e the results of these tests are highly [...] Fragmin(R)). Performed By: #### M AT21 #### [facility] CLIA [id number] [address] [place] [address] Monosomy X risk Dosage of chromosome-specific cfDNA Ql (Plasma cell-free+WBC DNA) [Interp] Not detected Normal [facility] Comment on above: Order Comment: Wiley escobedo Type: BLOOD SPECIMEN Ordering Facility: [facility] Address: [address] [place] [address] Performed By: #### M AT21 #### [facility] CLIA [id number] [address] [place] [address] NEGATIVE PREDICTIVE VALUE Note Normal [facility] Comment on above: Order Comment: Wiley escobedo Type: BLOOD SPECIMEN Ordering Facility: [facility] Address: [address] [place] [address] Result Comment: The Negative Predictive Value (NPV) for trisomy 21, 18, and 13 is greater than 99%. The NPV for SCA and ESS cannot be calculated as SCA and ESS are only reported when an abnormality is detected. Performed By: #### M AT21 #### [facility] [place] [id number] [address] [place] [address] NOTE Comment [facility] Comment on above: Order Comment: Wiley escobedo Type: BLOOD SPECIMEN Ordering Facility: [facility] Address: [address] [place] [address] Result Comment: See Notes [employer] is a subsidiary of [employer], using the brand [employer] system master. This test was developed and its performance characteristics determined by [facility]. It has not been cleared or approved by the Food and Drug Administration. This laboratory is certified under the Clinical Laboratory Improvement Amendments (CLIA) as qualified to perform high complexity clinical laboratory testing and accredited by the [employer] [place] [employer] (CAP). If there is future clinical need for adding MaterniT GENOME testing, this specimen will be available until term. [facility] samples will not be retained beyond 60 days. [facility] patients will have to send a new sample for re-sequencing ([facility] Test Code: [id number]). Performed By: #### M AT21 #### [facility] [id number] [address] [place] [address] PERFORMANCE CHARACTERISTICS Note [facility] Comment on above: Order Comment: Wiley escobedo Type: BLOOD SPECIMEN Ordering Facility: [facility] Address: [place] [address] Result Comment: ! Sex ! Accuracy: 99.4% [...] ! ! ! * As reported in [facility] database nstd37 [https://www.ncbi.nlm.nih.gov/dbvar/studies/nstd37/ ] # Estimated Sensitivity. [...] only. Performed By: #### M AT21 #### [facility] CLIA [id number] [address] [place] [address] POSITIVE PREDICTIVE VALUE N/A [facility] Comment on above: Order Comment: Speci men Type: BLOOD SPECIMEN Ordering Facility: [facility] Address: [address] [place] [address] Performed By: #### M AT21 #### [facility] CLIA [id number] [address] [place] [id number] Reference Lab Test Method Comment [facility] Comment on above: Order Comment: Speci men Type: BLOOD SPECIMEN Ordering Facility: [facility] Address: [address] [place] [address] Result Comment: See Notes Circulating cell-free DNA [...] 22. Performed By: #### M AT21 #### [facility] CLIA [id number] [address] [place] [id number] Sex Dosage of chromosome-specific cfDNA Nom (cfDNA) Comment [facility] Comment on above: Order Comment: Wiley escobedo Type: BLOOD SPECIMEN Ordering Facility: [facility] Address: [address] [place] [address] Result Comment: Cons istent with Male Performed By: #### M AT21 #### [facility] CLIA [id number] [address] [place] [address] Test performance information Andrew (Unsp spec) Comment [facility] Comment on above: Order Comment: Ousmanei men Type: BLOOD SPECIMEN Ordering Facility: [facility] Address: [address] [place] [address] Result Comment: The performance characteristics of the MaterniT(R) 21 PLUS laboratory-developed test (LDT) have been determined in a clinical validation study with women at increased risk for chromosomal aneuploidy.[1-4] Performed By: #### M AT21 #### [facility] CLIA [id number] [address] [place] [address] Trisomy 13 risk Dosage of chromosome-specific cfDNA Ql (cfDNA) [Interp] Negative Normal [facility] Comment on above: Order Comment: Speci men Type: BLOOD SPECIMEN Ordering Facility: [facility] Address: [address] [place] [address] Performed By: #### M AT21 #### [facility] CLIA [id number] [address] [place] [id number] Trisomy 18 risk Dosage of chromosome-specific cfDNA Ql (Plasma cell-free+WBC DNA) [Interp] Negative Normal [facility] Comment on above: Order Comment: Speci men Type: BLOOD SPECIMEN Ordering Facility: [facility] Address: [address] [place] [address] Performed By: #### M AT21 #### [facility] CLIA [id number] [address] [place], [place] [id number] URINE CULTUREon 12-26-2022 Bacteria identified Cx Nom (U) 50,000-<100,000 CFU/ml Normal urogenital kathy [facility] C. trachomatis+N. gonorrhoea e DNA TESS+probe Ql (U)on 12-25-2022 C. trachomatis DNA TESS+probe Ql (Unsp spec) Negative Negative for Chlamydia trachomatis by amplificaton [facility] N. gonorrhoeae DNA TESS+probe Ql (Unsp spec) Negative Negative for Neisseria gonorrhoeae by amplification [facility] [facility] CBC panel Auto (Bld)on 12-25 Erythrocyte distribution width (RBC) [Ratio] 12.0 % 11.5 - 15.0 % [facility] Hematocrit (Bld) [Volume fraction] 42.7 % 36.0 - 46.0 % [facility] Hemoglobin (Bld) [Mass/Vol] 14.6 g/dL 11.5 - 15.5 g/dL [facility] MCH (RBC) [Entitic mass] 29.5 pg 26.0 - 34.0 pg [facility] MCHC (RBC) [Mass/Vol] 34.2 g/dL 30.5 - 36.0 g/dL [facility] MCV (RBC) [Entitic vol] 86.3 fL 80.0 - 100.0 fL [facility] Nucleated RBC (Bld) [#/Vol] <0.01 k/uL [facility] Platelet mean volume (Bld) [Entitic vol] 11.1 fL 9.0 - 12.7 fL [facility] Platelets (Bld) [#/Vol] 226 10*3/uL 150 - 400 k/uL [facility] RBC (Bld) [#/Vol] 4.95 10*6/uL 3.90 - 5.20 m/uL [facility] WBC (Bld) [#/Vol] 8.70 10*3/uL 3.70 - 11.00 k/u L [facility] HEP B SURF AG [facility] 023 HBV surface Ag Ql (S) Negative Negative [facility] HEP C AB IA W/CONF [facility] HCV Ab Ql (S) Negative Negative [facility] HIV 1+2 Ab IA Qlon 3 HIV 1 and 2 Ab IA.rapid Nom [facility] HIV 1+2 Ab+HIV1 p24 Ag IA Ql Non-Reactive Nonreactive [facility] HIV Interpretation [facility] RUBELLA IGG ABon 12-25-2022 Rubella IgG, Qual Positive Positive [facility] Reagin and Treponema pallidu m IgG and IgM [Interp]on 12-25-2022 Syphilis Interpretation Cannot exclude recent Treponemal infection if specimen collected within 7-10 days after appearance of suspect lesions or 2-3 weeks after an exposure. Clinical correlation is required. [facility] T. pallidum IgG+IgM IA Ql (S) Non-Reactive Nonreactive [facility] TSH BLDon 12-25-2022 TSH Qn 0.951 m[IU]/L 0.510 - 4.300 mIU/L [facility] TYPE + SCREEN PRENATALon ABO B [facility] HIstorical Ab Scr Status Negative [facility] Rh Nom (Bld) Positive [facility] Type and Screen Expiration 12/28/2022 23:59 [facility] URINE OB DIP B/Oon 3 Glucose Ql (U) Negative Neg mg/dL [facility] Protein.monoclonal (U) [Mass/Vol] Negative Neg mg/dL [facility] HCG QUAL UR B/Oon 11-30-2022 status Positive neg - pos Talita barbour [facility] Quality Check Yes [facility] VIRGENDyan 11-10-2022 CNPN Telephone (PSMMMR) NATA PENALOZA ( ) 02 F [facility] Date Time Provider Department 11/10/22 WES[facility]ODRÍGUEZ [facility] During your visit today, we recorded the following information about you: Wesley Rodríguez [facility] 11/10/2022 9:35 AM Signed I called Nata [...] Encounter Status:Closed by WESLEY RODRÍGUEZ on 11/10/22 [facility] URINE CULTUREon 10-04-2022 Bacteria identified Cx Nom (U) >=100,000 CFU/ml Normal urogenital kathy [facility] BACTERIAL VAGINOSIS AMPLIFIC ATIONon 10-03-2022 Lactobacillus crispatus+gasseri+j ensenii + Gardnerella vaginalis + Atopobium vaginae rRNA TESS+probe Ql (Vag fld) Positive Abnormal Negative for bacterial vaginosis [facility] C. trachomatis+N. gonorrhoea e DNA TESS+probe Ql (Unsp spec)on 10-03-2022 C. trachomatis DNA TESS+probe Ql (Unsp spec) Negative Negative for Chlamydia trachomatis by amplificaton [facility] N. gonorrhoeae DNA TESS+probe Ql (Unsp spec) Negative Negative for Neisseria gonorrhoeae by amplification [facility] JOHN / TRICHOMONAS AMPLIF ICATIONon 10-03-2022 C. glabrata RNA TESS+probe Ql (Vag fld) Negative Negative for John glabrata [facility] Jhon albicans, C. dubliniensis, C. parapsilosis, and C. tropicalis RNA TESS+probe Ql (Vag fld) Positive Abnormal Negative for John species [facility] T. vaginalis DNA ETSS+probe Ql (Unsp spec) Negative Negative for Trichomonas vaginalis by amplification [facility] HCG QUAL UR B/Oon 10-02-2022 status Negative neg - pos [facility] Quality Check Yes [facility] UA DIP, URINE (POC)on 2021 BILIRUBIN UA (POCT) Negative Negative [facility] CLARITY UA (POCT) Clear [facility] COLOR UA (POCT) Dark yellow [facility] GLUCOSE UA (POCT) Negative Negative mg/dL [facility] HEMOGLOBIN/BLOOD UA (POCT) Negative Negative [facility] KETONE UA (POCT) Negative Negative mg/dL [facility] LEUKOCYTES UA (POCT) Trace Abnormal Negative [facility] NITRITE UA (POCT) Negative Negative [facility] PH UA (POCT) 5.0 4.5 - 8.0 [facility] Protein Ql (U) Negative Negative mg/dL [facility] SPECIFIC GRAVITY UA (POCT) 1.025 1.005 - 1.030 [facility] UROBILINOGEN UA (POCT) 0.2 E.U./dL Normal E.U./dL [facility] HCG QUAL UR B/Oon 07-16-2022 status Negative neg - pos [facility] Quality Check Yes [facility] UA DIP, URINE (POC)on 2021 BILIRUBIN UA (POCT) Negative Negative [facility] CLARITY UA (POCT) Cloudy [facility] COLOR UA (POCT) Other [facility] GLUCOSE UA (POCT) Negative Negative mg/dL [facility] HEMOGLOBIN/BLOOD UA (POCT) Negative Negative [facility] KETONE UA (POCT) Negative Negative mg/dL [facility] LEUKOCYTES UA (POCT) Negative Negative [facility] NITRITE UA (POCT) Negative Negative [facility] PH UA (POCT) 6.0 4.5 - 8.0 [facility] Protein Ql (U) Negative Negative mg/dL [facility] SPECIFIC GRAVITY UA (POCT) >=1.030 1.005 - 1.030 [facility] UROBILINOGEN UA (POCT) 0.2 E.U./dL Normal E.U./dL [facility] XR THORACIC GENERAL 3V AP/LA T/SWIMMERSon 07-03-2022 [facility] UA DIP, URINE (POC)on 2021 BILIRUBIN UA (POCT) Negative Negative [facility] CLARITY UA (POCT) Clear [facility] COLOR UA (POCT) Yellow [facility] GLUCOSE UA (POCT) Negative Negative mg/dL [facility] HEMOGLOBIN/BLOOD UA (POCT) Moderate Abnormal Negative [facility] KETONE UA (POCT) Trace Negative mg/dL [facility] LEUKOCYTES UA (POCT) Small Abnormal Negative [facility] NITRITE UA (POCT) Positive Abnormal Negative [facility] PH UA (POCT) 6.5 4.5 - 8.0 [facility] Protein Ql (U) 30 mg/dL Abnormal Negative mg/dL [facility] SPECIFIC GRAVITY UA (POCT) 1.025 1.005 - 1.030 [facility] UROBILINOGEN UA (POCT) 1.0 E.U./dL Normal E.U./dL [facility] Vital Signs Date Time Vital Sign Value Performing Clinician Bereket reagan 07-11-2024 12:49-0400 Body mass index (BMI) [Ratio] 23.41 kg/m2 Linda Arlen SILO PAINTER[employer] WORK[employer] Work Phone: [facility] 07-11-2024 12:49-0400 Body weight 61.87 kg Linda Arlen SILO PAINTER[employer] WORK[employer] Work Phone: [facility] 07-11-2024 12:49-0400 Diastolic blood pressure 78 mm[Hg] Linda Arlen SILO PAINTER[employer] WORKER Work Phone: [facility] 07-11-2024 12:49-0400 Systolic blood pressure 126 mm[Hg] Linda Arlen SILO PAINTER[employer] WE[employer] WORKER Work Phone: [facility] 01-24-2024 15:29-0400 Body mass index (BMI) [Ratio] 22.52 kg/m2 Jennifer Estrada MD Work Phone: [facility] 01-24-2024 15:29-0400 Body weight 59.51 kg Jennifer Estrada MD Work Phone: [facility] 01-24-2024 15:29-0400 Diastolic blood pressure 70 mm[Hg] Jennifer Estrada MD Work Phone: [facility] 01-24-2024 15:29-0400 Systolic blood pressure 110 mm[Hg] Jennifer Estrada MD Work Phone: [facility] 11-23-2023 12:02-0500 Body temperature 97.81 [degF] Jeannine Vo SILO PAINTER[employer] WORK[employer] Work Phone: [facility] 11-23-2023 12:02-0500 Diastolic blood pressure 79 mm[Hg] Jeannine Vo [employer]ILO PAINTER[employer] WORK[employer] Work Phone: [facility] 11-23-2023 12:02-0500 Heart rate 69 /min Jeannine Vo [employer]ILO PAINTER[employer] WORK[employer] Work Phone: [facility] 11-23-2023 12:02-0500 Systolic blood pressure 116 mm[Hg] Jeannine Vo SILO PAINTER[employer] WORKER Work Phone: [facility] 08-19-2023 10:33-0500 Body weight 65.3 kg Elysia Collier MD Work Phone: [facility] 08-19-2023 10:33-0500 Diastolic blood pressure 62 mm[Hg] Elysia Collier MD Work Phone: [facility] 08-19-2023 10:33-0500 Respiratory rate 18 /min Elysia Collier MD Work Phone: [facility] 08-19-2023 10:33-0500 Systolic blood pressure 128 mm[Hg] Elysia Collier MD Work Phone: [facility] 08-04-2023 16:00-0400 Diastolic blood pressure 78 mm[Hg] Nurse Snow Work Phone: [facility] 08-04-2023 16:00-0400 Systolic blood pressure 128 mm[Hg] Nurse Gwendolyn Work Phone: [facility] 07-23-2023 14:50-0400 Body weight 74.11 kg Remi Powell MD Work Phone: [facility] 07-23-2023 14:50-0400 Diastolic blood pressure 74 mm[Hg] Remi Powell MD Work Phone: [facility] 07-23-2023 14:50-0400 Respiratory rate 18 /min Remi Powell MD Work Phone: [facility] 07-23-2023 14:50-0400 Systolic blood pressure 130 mm[Hg] Remi Powell MD Work Phone: [facility] 07-16-2023 16:13-0400 Body weight 74.03 kg Remi Powell MD Work Phone: [facility] 07-16-2023 16:13-0400 Diastolic blood pressure 68 mm[Hg] Remi Powell MD Work Phone: [facility] 07-16-2023 16:13-0400 Systolic blood pressure 116 mm[Hg] Remi Powell MD Work Phone: [facility] 07-01-2023 15:33-0400 Body weight 74.03 kg Remi Powell MD Work Phone: [facility] 07-01-2023 15:33-0400 Diastolic blood pressure 64 mm[Hg] Remi Powell MD Work Phone: [facility] 07-01-2023 15:33-0400 Systolic blood pressure 102 mm[Hg] Remi Powell MD Work Phone: [facility] 06-25-2023 15:17-0400 Body weight 73.23 kg Elysia Collier MD Work Phone: [facility] 06-25-2023 15:17-0400 Diastolic blood pressure 80 mm[Hg] Elysia Collier MD Work Phone: [facility] 06-25-2023 15:17-0400 Respiratory rate 18 /min Elysia Collier MD Work Phone: [facility] 06-25-2023 15:17-0400 Systolic blood pressure 130 mm[Hg] Elysia Collier MD Work Phone: [facility] 05-26-2023 18:47-0400 Body temperature 98.29 [degF] Tonya Gerardo SILO PAINTER[employer] WORKER Work Phone: [facility] 05-26-2023 18:47-0400 Body weight 73.39 kg Tonya Gerardo [employer]ILO PAINTER[employer] WORKER Work Phone: [facility] 05-26-2023 18:47-0400 Diastolic blood pressure 76 mm[Hg] Tonya Gerardo [employer]ILO PAINTER[employer] WORKER Work Phone: [facility] 05-26-2023 18:47-0400 Heart rate 85 /min Tonya Gerardo [employer]ILO PAINTER[employer] WORKER Work Phone: [facility] 05-26-2023 18:47-0400 Respiratory rate 21 /min Tonya Gerardo [employer]ILO PAINTER[employer] WE[employer] WORKER Work Phone: [facility] 05-26-2023 18:47-0400 SaO2% (BldA) [Mass fraction] 97 % Tonya Gerardo SILO PAINTER[employer] WE[employer] WORKER Work Phone: [facility] 05-26-2023 18:47-0400 Systolic blood pressure 104 mm[Hg] Tonya Gerardo SILO PAINTER[employer] WE[employer] WORKER Work Phone: [facility] 05-21-2023 08:44-0400 Body weight 71.71 kg Remi Powell MD Work Phone: [facility] 05-21-2023 08:44-0400 Diastolic blood pressure 62 mm[Hg] Remi Powell MD Work Phone: [facility] 05-21-2023 08:44-0400 Systolic blood pressure 112 mm[Hg] Remi Powell MD Work Phone: [facility] 05-19-2023 14:54-0400 Body temperature 97.59 [degF] Jerri Kaiser SILO PAINTER[employer] WORKER Work Phone: [facility] 05-19-2023 14:54-0400 Diastolic blood pressure 82 mm[Hg] Jerri Kaiser SILO PAINTER[employer] WORKER Work Phone: [facility] 05-19-2023 14:54-0400 Heart rate 105 /min Jerri Kaiser SILO PAINTER[employer] WORKER Work Phone: [facility] 05-19-2023 14:54-0400 SaO2% (BldA) [Mass fraction] 98 % Jerri Kaiser SILO PAINTER.[employer] WE[employer] WORKER Work Phone: [facility] 05-19-2023 14:54-0400 Systolic blood pressure 128 mm[Hg] Jerri Kaiser SILO PAINTER.[employer] WORKER Work Phone: [facility] 04-20-2023 08:18-0400 Body weight 68.58 kg Orlando Burroughs MD Work Phone: [facility] 04-20-2023 08:18-0400 Diastolic blood pressure 60 mm[Hg] Orlando Burroughs MD Work Phone: [facility] 04-20-2023 08:18-0400 Systolic blood pressure 112 mm[Hg] Orlando Burroughs MD Work Phone: [facility] 01-29-2023 08:12-0400 Body weight 64.32 kg Remi Powell MD Work Phone: [facility] 01-29-2023 08:12-0400 Diastolic blood pressure 64 mm[Hg] Remi Powell MD Work Phone: [facility] 01-29-2023 08:12-0400 Systolic blood pressure 122 mm[Hg] Remi Powell MD Work Phone: [facility] 12-25-2022 09:36-0400 Body height 162.6 cm Remi Powell MD Work Phone: [facility] 12-25-2022 09:36-0400 Body weight 66.22 kg Remi Powell MD Work Phone: [facility] 12-25-2022 09:36-0400 Diastolic blood pressure 62 mm[Hg] Remi Powell MD Work Phone: [facility] 12-25-2022 09:36-0400 Systolic blood pressure 106 mm[Hg] Remi Powell MD Work Phone: [facility] 11-30-2022 12:09-0500 Body temperature 97.9 [degF] Maegan Morrissey PA-C Work Phone: [facility] 11-30-2022 12:09-0500 Diastolic blood pressure 84 mm[Hg] Maegan Morrissey PA-C Work Phone: [facility] 11-30-2022 12:09-0500 Heart rate 101 /min Maegan Morrissey PA-C Work Phone: [facility] 11-30-2022 12:09-0500 SaO2% (BldA) [Mass fraction] 98 % Maegan Ghanshyam PA-C Work Phone: [facility] 11-30-2022 12:09-0500 Systolic blood pressure 127 mm[Hg] Maegan Morrissey PA-C Work Phone: [facility] 10-02-2022 16:43-0500 Body temperature 98.01 [degF] Washington Pendlebury SILO PAINTER.[employer] WE[employer] WORKER Work Phone: [facility] 10-02-2022 16:43-0500 Body weight 66.86 kg Washington Pendlebury SILO PAINTER[employer] WE[employer] WORKER Work Phone: [facility] 10-02-2022 16:43-0500 Diastolic blood pressure 82 mm[Hg] Washington Pendlebury SILO PAINTER.[employer] WE[employer] WORKER Work Phone: [facility] 10-02-2022 16:43-0500 Heart rate 92 /min Washington Pendlebury SILO PAINTER.[employer] WE[employer] WORKER Work Phone: [facility] 10-02-2022 16:43-0500 Respiratory rate 18 /min Washington Pendlebury SILO PAINTER.[employer] WE[employer] WORKER Work Phone: [facility] 10-02-2022 16:43-0500 SaO2% (BldA) [Mass fraction] 97 % Washington Pendlebury SILO PAINTER.[employer] WE[employer] WORKER Work Phone: [facility] 10-02-2022 16:43-0500 Systolic blood pressure 122 mm[Hg] Washington Pendlebury SILO PAINTER.[employer] WE[employer] WORKER Work Phone: [facility] 07-17-2022 16:19-0400 Diastolic blood pressure 80 mm[Hg] Hellen Paez MD Work Phone: [facility] 07-17-2022 16:19-0400 Heart rate 80 /min Hellen Paez MD Work Phone: [facility] 07-17-2022 16:19-0400 Systolic blood pressure 130 mm[Hg] Hellen Paez MD Work Phone: [facility] 07-16-2022 15:54-0400 Body height 165.1 cm Elysia Reaper SILO PAINTER[employer] WORKER Work Phone: [facility] 07-16-2022 15:54-0400 Body weight 70.4 kg Elysia Reaper SILO PAINTER[employer] WORKER Work Phone: [facility] 07-16-2022 15:54-0400 Diastolic blood pressure 80 mm[Hg] Elysia Reaper SILO PAINTER.[employer] WE[employer] WORKER Work Phone: [facility] 07-16-2022 15:54-0400 Systolic blood pressure 118 mm[Hg] Elysia Reaper [employer]ILO PAINTER[employer] WORKER Work Phone: [facility] 04-10-2022 18:09-0400 Body height 162.6 cm Luana Ball SILO PAINTER.[employer] WORKER Work Phone: [facility] 04-10-2022 18:09-0400 Body mass index (BMI) [Percentile] Per age and sex 90.55 % Luana Ball SILO PAINTER[employer] WE[employer] WORKER Work Phone: [facility] 04-10-2022 18:09-0400 Body weight 74.39 kg Luana Ball SILO PAINTER.[employer] WORKER Work Phone: [facility] 04-10-2022 18:09-0400 Diastolic blood pressure 88 mm[Hg] Luana Ball SILO PAINTER.[employer] WE[employer] WORKER Work Phone: [facility] 04-10-2022 18:09-0400 Heart rate 89 /min Luana Ball SILO PAINTER.[employer] WORKER Work Phone: [facility] 04-10-2022 18:09-0400 Respiratory rate 16 /min Luana Ball SILO PAINTER.[employer] WE[employer] WORKER Work Phone: [facility] 04-10-2022 18:09-0400 SaO2% (BldA) [Mass fraction] 99 % Luana Ball SILO PAINTER[employer] WORKER Work Phone: [facility] 04-10-2022 18:09-0400 Systolic blood pressure 142 mm[Hg] Luana Nevarez APRN.CNP Work Phone: [facility] 03-31-2022 16:00-0400 Body height 162.5 cm Angela Ray MD Work Phone: [facility] 03-31-2022 16:00-0400 Body mass index (BMI) [Percentile] Per age and sex 92.5 % Angela Ray MD Work Phone: [facility] 03-31-2022 16:00-0400 Body weight 77.07 kg Angela Ray MD Work Phone: [facility] 03-31-2022 16:00-0400 Diastolic blood pressure 88 mm[Hg] Angela Ray MD Work Phone: [facility] 03-31-2022 16:00-0400 Heart rate 89 /min Angela Ray MD Work Phone: [facility] 03-31-2022 16:00-0400 Systolic blood pressure 140 mm[Hg] Angela Ray MD Work Phone: [facility] 03-04-2022 17:56-0400 Body mass index (BMI) [Percentile] Per age and sex 91.93 % Louann Wormald PA-C Work Phone: [facility] 03-04-2022 17:56-0400 Body temperature 98.4 [degF] Louann Wormald PA-C Work Phone: [facility] 03-04-2022 17:56-0400 Body weight 78.52 kg Louann Wormald PA-C Work Phone: [facility] 03-04-2022 17:56-0400 Diastolic blood pressure 75 mm[Hg] Louann Wormald PA-C Work Phone: [facility] 03-04-2022 17:56-0400 Heart rate 83 /min Louann Wormald PA-C Work Phone: [facility] 03-04-2022 17:56-0400 Respiratory rate 12 /min Louann Garcia PA-C Work Phone: [facility] 03-04-2022 17:56-0400 SaO2% (BldA) [Mass fraction] 100 % Louann Garcia PA-C Work Phone: [facility] 03-04-2022 17:56-0400 Systolic blood pressure 128 mm[Hg] Louann Garcia PA-C Work Phone: [facility] Encounters Encounter Date Encounter Type Care Provider Facility Start: 04-30-2025 ambulatory Efewongbe Oleghe Facili ty:[facility] Start: 04-27-2025 ambulatory Efewongbe Oleghe Facili ty:[facility] Start: 04-25-2025 ambulatory Efewongbe Oleghe Facili ty:[facility] Start: 04-23-2025 End: 04-23-2025 ambulatory Efewongbe Oleghe Facility:[facility] Start: 04-12-2025 End: 04-12-2025 ambulatory Efewongbe Oleghe Facility:[facility] Start: 04-03-2025 End: 04-03-2025 ambulatory Efewongbe Oleghe Facility:[facility] Start: 03-26-2025 End: 03-26-2025 ambulatory Efewongbe Oleghe Facility:[facility] Start: 03-23-2025 End: 03-23-2025 ambulatory Rosie Stinson Facility:[facility] Start: 02-21-2025 End: 02-21-2025 ambulatory Jesus LLANES Facility:[facility] Start: 02-20-2025 End: 02-20-2025 ambulatory Jesus LLANES Facility:[facility] Start: 02-12-2025 End: 02-12-2025 ambulatory Efewongbe Anna Facility:[facility] Start: 02-06-2025 End: 02-06-2025 ambulatory Rosie Stinson Facility:[facility] Start: 02-06-2025 End: 02-06-2025 ambulatory Rosie Stinson Facility:[facility] Start: 02-02-2025 End: 02-02-2025 ambulatory Sharmin Hernandez Facility:[facility] Start: 01-22-2025 ambulatory Vani Dossi [facility] Start: 01-04-2025 End: 01-04-2025 ambulatory Sharmin Hernandez Facility:[facility] Start: 01-04-2025 End: 01-04-2025 ambulatory [facility] Facility:[facility] Start: 12-18-2024 ambulatory Vani Dossi [facility] Start: 12-12-2024 End: 12-12-2024 ambulatory [facility] Start: 11-27-2024 End: 11-27-2024 ambulatory Vani Dossi Facility:[facility] Start: 11-13-2024 ambulatory Vani Dossi [facility] Start: 10-30-2024 End: 10-30-2024 ambulatory Vani Dossi Facility:[facility] Start: 10-25-2024 End: 10-25-2024 ambulatory [facility] Facility:[facility] Start: 10-23-2024 ambulatory Vani Dossi [facility] Start: 10-09-2024 End: 10-09-2024 ambulatory Vani Dossi Facility:[facility] Start: 09-15-2024 Encounter for gynecological examination (general) (routine) without abnormal findings Rosie Stinson [facility] Start: 09-15-2024 End: 09-15-2024 ambulatory No Primary Care Physician Facility:[facility] Start: 09-15-2024 End: 09-15-2024 ambulatory Rosie Stinson Facility:[facility] Start: 09-11-2024 End: 09-11-2024 ambulatory Vani Cm Facility:[facility] Start: 08-28-2024 End: 08-28-2024 ambulatory No Primary Care Physician Facility:[facility] Start: 07-12-2024 End: 07-12-2024 Orders Only Jennifer Estrada MD Work Phone: OB/Gynecology Comment on above: Ovarian cyst, right (Primary Dx) Start: 07-11-2024 End: 07-11-2024 ambulatory HELLEN PAEZ [facility] Start: 07-11-2024 End: 07-11-2024 Patient encounter procedure Linda Márquez APRN.CNP Work Phone: OB/Gynecology Comment on above: Surveillance of prev iously prescribed intrauterine contraceptive device (Primary Dx) Start: 05-17-2024 End: 05-17-2024 ambulatory No Primary Care Physician Facility:[facility] Start: 01-24-2024 End: 01-24-2024 Patient encounter procedure Jennifer Estrada MD Work Phone: OB/Gynecology Comment on above: Pelvic pain in femal e (Primary Dx); IUD check up; Abnormal uterine bleeding (AUB) Start: 11-23-2023 End: 11-23-2023 Patient encounter procedure Jeannine Merrill SILO PAINTER[employer] WE[employer] WORKER Work Phone: [facility] Comment on [...] 08-04-2023 End: 08-04-2023 Patient encounter procedure Nurse Gut Dropper [facility] Gwendolyn Work Phone: Obstetrics/Gynecology Comment on above: BP check (Primary Dx ) Start: 08-04-2023 End: 08-04-2023 Patient encounter status Nurse Gwendolyn Work Phone: [facility] Start: 08-04-2023 ambulatory Elysia woodruff MD Work Phone: Obstetrics/Gynecology Comment on above: Blood pressure Start: 07-29-2023 Telephone encounter Delaney Snowden APRN.CNM Work Phone: [facility] Comment on above: Appointment (Needs o ne week bp check for GHTN) Start: 07-27-2023 End: 07-30-2023 Evaluation and management of inpatient [facility] Facility[facility] Start: 07-26-2023 End: 07-26-2023 [facility] Start: 07-26-2023 Telephone encounter Darren Rodríguez MD Work Phone: Obstetrics/Gynecology Start: 07-23-2023 End: 07-23-2023 Patient encounter procedure Remi Powell MD Work Phone: Obstetrics/Gynecology Comment on above: Encounter for superv ision of normal in third trimester, unspecified (Primary Dx) Start: 07-23-2023 End: 07-24-2023 ambulatory Georgiana Kasper [facility] Comment on above: Population Health Na vigation [...] End: 05-26-2023 Patient encounter procedure Tonya Gerardo APRN.CNP Work Phone: [facility] Comment on above: Pharyngitis, unspeci fied etiology (Primary Dx) Start: 05-21-2023 End: 05-21-2023 Patient encounter procedure Remi Powell MD Work Phone: Obstetrics/Gynecology Comment on above: Encounter for superv ision of normal first in third trimester (Primary Dx) Start: 05-19-2023 End: 05-19-2023 Patient encounter procedure Jerri Saab DAMON Work Phone: [facility] Comment on above: Sore throat (Primary Dx); Suspected COVID-19 virus infection Start: 04-20-2023 End: 04-20-2023 Patient encounter procedure Orlando Burroughs MD Work Phone: Obstetrics/Gynecology Comment on above: Encounter for superv ision of normal first in second trimester (Primary Dx); 24 weeks gestation of Start: 03-19-2023 End: 03-19-2023 Patient encounter procedure Gut Dropper [facility] Work Phone: Maternal Medicine Comment on above: Encounter for anatomic survey (Primary Dx); Encounter for screening of mother Start: 02-09-2023 ambulatory Omar Calabrese Work Phone: Internal Medicine [facility] Comment on above: Positive testing Start: 02-09-2023 E-mail encounter fro m caregiver Omar Velarde PA-C Work Phone: [facility] Start: 02-01-2023 Telephone encounter Brie vaz MD Work Phone: Maternal Medicine Comment on above: Results (NIPT ) Start: 01-29-2023 End: 01-29-2023 Patient encounter procedure Remi Powell MD Work Phone: Obstetrics/Gynecology Comment on above: Encounter for superv ision of normal first in first trimester (Primary Dx); IUD migration, initial encounter Start: 01-25-2023 End: 01-26-2023 ambulatory Brie VITAL Facility:[facility] Start: 01-05-2023 ambulatory Brett colon PA-C Work Phone: [facility] Comment on above: Vaginal culture resu lts/treatment - January 05, 2023 Urine culture - Apr2022 Start: 01-05-2023 E-mail encounter fro m caregiver Brett Mejía PA-C Work Phone: [facility] Start: 12-25-2022 End: 12-25-2022 Patient encounter procedure Remi Powell MD Work Phone: Obstetrics/Gynecology Comment on above: Encounter for superv ision of normal first in first trimester (Primary Dx); confirmed by positive urine test Start: 11-30-2022 End: 11-30-2022 Patient encounter procedure Maegan Morrissey PA-C Work Phone: [facility] Comment on above: confirmed by positive urine test (Primary Dx); Possible Start: 11-10-2022 Telephone encounter Wesley carlson [facility] Work Phone: Psychiatry Comment on above: Patient Update Start: 11-03-2022 End: 11-03-2022 Patient encounter procedure Rajni BEAL Work Phone: Psychology Comment on above: Bipolar II disorder (HCC) (Primary Dx); Post traumatic stress disorder (PTSD); Eating disorder, unspecified type Start: 10-03-2022 Telephone encounter Patricia Nuno APRN.WIRE WEB WORKER Work Phone: [facility] Comment on above: Results Start: 10-02-2022 End: 10-02-2022 Office outpatient visit 25 minutes [place] Goss SILO PAINTER.WIRE WEB WORKER Work Phone: [facility] Comment on above: Urinary frequency (P rimary Dx); Vaginal discharge Start: 07-22-2022 End: 07-22-2022 Patient encounter procedure Wilver Montemayor DC Work Phone: Integrative Medicine Comment on above: Chronic bilateral th oracic back pain (Primary Dx) Start: 07-17-2022 End: 07-18-2022 Office outpatient visit 25 minutes Hellen Paez MD Work Phone: Internal Medicine [facility] [place] Comment on above: Primary insomnia (Pr imary Dx); Cyclothymia; Recurrent syncope; Chronic maxillary sinusitis; Encounter for immunization Start: 07-16-2022 End: 07-16-2022 Patient encounter procedure Elysia Campbell SILO PAINTER.W[employer] WEB WORKER Work Phone: Gynecology Comment on above: Urinary [...] back pain (Primary Dx) Start: 04-21-2022 ambulatory Renearanjan MILLER W Work Phone: Behavioral Health Comment on above: Behavioral Health O[facility] Start: 04-21-2022 E-mail encounter fro m caregiver Renearanjan Hall EMIGDIO Work Phone: [facility] Start: 04-14-2022 End: 04-14-2022 Patient encounter procedure Carmen Ramirez MD Work Phone: Otolaryngology Comment on above: Allergic rhinitis, u nspecified seasonality, unspecified trigger (Primary Dx); Dysfunction of both eustachian tubes Start: 04-13-2022 ambulatory Roxie Thorne RN INDP GINGER PADRON Start: 04-13-2022 Follow-up encounter Roxie Thorne RN Call Center Receptionist Management Comment on above: Transition Of Care ( [facility] - Hospital D/C Follow up - Initial Outreach) Start: 04-10-2022 End: 04-10-2022 Patient encounter procedure Luana Nevarez APRN.WIRE WEB WORKER Work Phone: [facility] Comment on above: Procedure not dax d out (Primary Dx) Start: 04-08-2022 End: 04-08-2022 Emergency department patient visit Maxine Dewitt APRN.WIRE WEB WORKER Work Phone: Gynecology Comment on above: Emergency contracept ion (Primary Dx); Encounter for initial prescription of contraceptive pills; Decreased appetite; History of recent stressful life event Start: 04-08-2022 End: 04-08-2022 Telemedicine consultation with patient Maxine Dewitt DAMON Work Phone: [facility] Start: 03-31-2022 End: 04-01-2022 Initial preventive medicine new pt age 18-39yrs Angela Ray MD Work Phone: Internal Medicine [facility] Comment on above: Wellness examination (Primary Dx); Chronic maxillary sinusitis; Maxillary micrognathia; Velopharyngeal insufficiency, congenital; Cleft palate, unspecified; Chronic midline 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 sciatica; Vasovagal syncope Start: 03-31-2022 End: 04-01-2022 Patient encounter status Angela Ray MD Work Phone: Internal Medicine [facility] Start: 03-04-2022 End: 03-04-2022 Patient encounter procedure Louann Garcia PA-C Work Phone: [facility] Comment on above: Leukocytes in urine (Primary Dx); Dysuria; Urinary frequency Start: 03-04-2022 ambulatory Romario briones PA-C Work Phone: Telemedicine Comment on above: Treatment not availa ble (Primary Dx) Uti & refill Start: 02-03-2022 Phys/qhp online evaluation & management service Maegan Stinson APRN.WIRE WEB WORKER Work Phone: Telemedicine Comment on above: Treatment not availa ble (Primary Dx) Procedures Date Procedure Procedure Detail Performing Clinician Start: 07-11-2024 Us pelvic nonobstetr ic real-time image complete Jennifer Estrada MD Work Phone: Start: 11-23-2023 Urnls dip stick/tabl et rgnt auto w/o microscopy Jeannine Merrill SILO PAINTER.W[employer] WEB WORKER Work Phone: Start: 07-27-2023 Antibody screen HELLEN PAEZ Comment on above: Order Comment: Speci men Type: BLOOD SPECIMENOrdering Facility: [facility] Address: [address] [place] [id number] Performed By: #### T SPN ####[facility] BLOOD BANKIA [id number] [place] [address] [place] Start: 07-23-2023 URINE OB [...] 05-19-2023 STREP A MOLECULAR (POC) Jerri Saab APRN.WIRE WEB WORKER Work Phone: Start: 05-19-2023 COVID & INFLUENZA A/ B & RSV NAAT, ROUTINE Jerri Saab APRN.WIRE WEB WORKER Work Phone: Start: 05-19-2023 Iadna respiratry pro be & rev trnscr 3-5 targets Jerri Saab APRN.[employer] WE[employer] WORKER Work Phone: Start: 05-19-2023 Sars-cov-2 detection by dna/rna Jerri Kaiser SILO PAINTER.WIRE WEB WORKER Work Phone: Start: 04-20-2023 URINE OB DIP B/O Vesna Burroughs MD Work Phone: Start: 03-19-2023 Us preg uterus after 1st trimest 10/04 gestation S Misael Vital MD Work Phone: Start: 01-29-2023 URINE OB DIP B/O Rosana Powell MD Work Phone: Start: 12-25-2022 URINE OB DIP B/O Rosana Powell MD Work Phone: Start: 12-25-2022 Antibody screen Remi Powell MD Work Phone: Start: 12-25-2022 Blood count complete automated Remi Powell MD Work Phone: Start: 12-25-2022 Hepatitis c antibody Ib nilesh Powell MD Work Phone: Start: 12-25-2022 Iaad ia hepatitis b surface antigen Remi Powell MD Work Phone: Start: 11-30-2022 Urine test visual color cmprsn meths Maegan Morrissey PA-C Work Phone: Start: 10-02-2022 BACTERIAL VAGINOSIS AMPLIFICATION [place] Goss SILO PAINTER.WIRE WEB WORKER Work Phone: Start: 10-02-2022 End: 10-02-2022 Iadna chlamydia trachomatis amplified probe tq [place] Goss SILO PAINTER.WIRE WEB WORKER Work Phone: Start: 10-02-2022 Culture bacterial quanttative colony count urine [place] Goss SILO PAINTER.WIRE WEB WORKER Work Phone: Start: 10-02-2022 End: 10-02-2022 Urnls dip stick/tablet rgnt auto w/o microscopy Sylwia Ortiz SILO PAINTER.WIRE WEB WORKER Work Phone: Start: 07-17-2022 INFLUENZA VACCINE QUADRIVALENT 6 MO - 64 YRS IM Hellen Paez MD Work Phone: Start: 07-16-2022 End: 07-16-2022 Urnls dip stick/tablet rgnt auto w/o microscopy Elysia Campbell APRN.CNP Work Phone: Start: 07-03-2022 Radex spine thoracic 3 views Wilver Montemayor DC Work Phone: Start: 03-31-2022 Adult depression scr eening assessment Angela Ray MD Work Phone: Start: 03-04-2022 Urnls dip stick/tabl et rgnt auto w/o microscopy [facility] Provider Plan of Treatment Date Care Activity Detail Author Start: 05-21-2033 Urine microalbumin profile [facility] Start: 09-14-2026 Screening for malign ant neoplasm of cervix [facility] Start: 05-15-2025 Urine microalbumin profile DTAP,TDAP,TD (7 - Td or Tdap) [facility] Start: 10-13-2024 End: 10-13-2024 Patient encounter procedure 10/13/2024 11:00 AM EST Office Visit Obstetrics/Gynecology [address] [address] Elysia Collier MD [address] [place] [address] ANNUAL EXAM Obstetrics/Gynecolog y Comment on above: ANNUAL EXAM Start: 10-02-2024 End: 10-02-2024 Patient encounter procedure Obstetrics/Gynecolog y Comment on above: ANNUAL EXAM Start: 07-12-2024 End: 07-12-2025 US Pelvis PELVIC US [facility] Anc Imaging Routine Ovarian cyst, right Expected: 07/12/2024, Expires: 07/12/2025 [facility] Work Phone: Comment on above: Expected: 07/12/2024 , Expires: 07/12/2025 Start: 06-04-2024 Covid-19 Vaccine ( season) Covid-19 Vaccine () [facility] Start: 06-04-2024 Influenza vaccination Influenza Vacc ine (#1) [facility] Start: 02-24-2024 End: 02-24-2024 Patient encounter procedure 02/24/2024 3:40 PM EDT Office Visit OB/Gynecology [address] [place] [address] Minoo Arzate MD [address] [place] [address] Pelvic US/IUD follow up OB/Gynecology Comment on above: Pelvic US/IUD follow up Start: 02-24-2024 End: 02-24-2024 Manual pelvic examination 02/24/2024 3:00 PM EDT Procedure OB/Gynecology [address] [place] [address] Pelvic pain in female [R10.2] OB/Gynecology Comment on above: Pelvic pain in femal e [R10.2] Start: 01-24-2024 End: 01-23-2025 US Pelvis PELVIC US [facility] Anc Imaging Routine Pelvic pain in female Expected: 01/24/2024, Expires: 01/23/2025 [facility] Work Phone: Comment on above: Expected: 01/24/2024 , Expires: 01/23/2025 Start: 12-26-2023 CHLAMYDIA SCREENING (-) CHLAMYDIA SCREENING (18-24) [facility] Start: 12-26-2023 GC (GONORRHEA) SCREE TACOS (18-24) GC (GONORRHEA) SCREENING (18-24) [facility] Start: 12-26-2023 Screening for Chlamy rickey trachomatis Chlamydia Screening (-) [facility] Start: 10-04-2023 Behavioral Health Screening Behavioral Health Screening [facility] Start: 10-04-2023 Depression Assessment Depression Ass essment [facility] Start: 10-02-2023 CHLAMYDIA SCREENING (18-24) CHLAMYDIA SCREENING (18-24) [facility] Start: 10-02-2023 GC (GONORRHEA) SCREE TACOS (18-24) GC (GONORRHEA) SCREENING (18-24) [facility] Start: 07-23-2023 End: 10-22-2023 Protein/Creatinine [Mass Ratio] in Urine [facility] Work Phone: Comment on above: Expected: 07/23/2023 , Expires: 10/22/2023 Start: 07-17-2023 COVID-19 VACCINE (3 - Booster for Pfizer series) COVID-19 VACCINE (3 - Booster for Pfizer series) [facility] Comment on above: Postponed from 10/17 (Declined at this time) Start: 07-17-2023 COVID-19 VACCINE (3 - Pfizer series) COVID-19 VACCINE (3 - Pfizer series) [facility] Comment on above: Postponed from 10/17 (Declined at this time) Start: 07-17-2023 HEPATITIS C SCREENING HEPATITIS C SC REENING [facility] Comment on above: Postponed from 12/06 (Declined at this time) Start: 07-17-2023 HIV SCREENING HIV SCREENING [facility] Comment on above: Postponed from 12/06 (Declined at this time) Start: 07-17-2023 Meningococcal B Vacc ine: Consider Based On Risk (1 of 2 - Patient Seeks Protection) Meningococcal B Vaccine: Consider Based On Risk (1 of 2 - Patient Seeks Protection) [facility] Comment on above: Postponed from 12/06 (Declined at this time) Start: 07-17-2023 MENINGOCOCCAL B: Consider based on risk (1 of 2 - Patient Seeks Protection) MENINGOCOCCAL B: Consider based on risk (1 of 2 - Patient Seeks Protection) [facility] Comment on above: Postponed from 12/06 (Declined at this time) Start: 07-17-2023 MENINGOCOCCAL B: Consider based on risk (1 of 2 - Risk Bexsero 2-dose series) MENINGOCOCCAL B: Consider based on risk (1 of 2 - Risk Bexsero 2-dose series) [facility] Comment on above: Postponed from 12/06 (Declined at this time) Start: 07-16-2023 CHLAMYDIA SCREENING (18-24) CHLAMYDIA SCREENING (18-24) [facility] Start: 07-16-2023 GC (GONORRHEA) SCREE TACOS (18-24) GC (GONORRHEA) SCREENING (18-24) [facility] Start: 06-04-2023 Covid-19 Vaccine ( season) Covid-19 Vaccine ( season) [facility] Start: 06-04-2023 Influenza vaccination INFLUENZA (#1) [facility] Start: 05-21-2023 End: 07-21-2023 CBC W Auto Differential panel - Blood CBC + DIFF Lab Routine Encounter for supervision of normal first in third trimester Expected: 05/21/2023, Expires: 07/21/2023 [facility] Work Phone: Comment on above: Expected: 05/21/2023 , Expires: 07/21/2023 Start: 04-20-2023 End: 06-20-2023 GEST GLUC SCREEN, 1-HR, 50 GM, NON-FASTING [facility] Work Phone: Comment on above: Expected: 04/20/2023 , Expires: 06/20/2023 Start: 03-31-2023 Adult depression screening assessment DEPRESSION SCREENING [facility] Start: 12-25-2022 End: 12-26-2023 NUCHAL TRANSLUCENCY WHI NUCHAL TRANSLUCENCY [facility] Anc Imaging Routine Encounter for supervision of normal first in first trimester Expected: 12/25/2022, Expires: 12/26/2023 [facility] Work Phone: Comment on above: Expected: 12/25/2022 , Expires: 12/26/2023 Start: 10-04-2022 DEPRESSION ASSESSMENT DEPRESSION ASS ESSMENT [facility] Start: 06-04-2022 Influenza vaccination INFLUENZA (#1) [facility] Start: 01-20-2022 COVID-19 VACCINE (3 - Booster for Pfizer series) COVID-19 VACCINE (3 - Booster for Pfizer series) [facility] Start: 10-17-2021 COVID-19 VACCINE (3 - Booster for Pfizer series) COVID-19 VACCINE (3 - Booster for Pfizer series) [facility] Start: 10-04-2021 DEPRESSION ASSESSMENT DEPRESSION ASS ESSMENT [facility] Start: 2020 Anxiety Screening Anxiety Screening [facility] Start: 2020 CHLAMYDIA SCREENING () CHLAMYDIA SCREENING () [facility] Start: 2020 Depression Screening Depression Scre ening [facility] Start: 2020 GC (GONORRHEA) SCREE TACOS (18-24) GC (GONORRHEA) SCREENING (18-24) [facility] Start: 2020 HEPATITIS C SCREENING HEPATITIS C SC REENING [facility] Start: 2020 HIV SCREENING HIV SCREENING [facility] Start: 2018 Meningococcal B Vacc ine: Consider Based On Risk (1 of 2 - Patient Seeks Protection) Meningococcal B Vaccine: Consider Based On Risk (1 of 2 - Patient Seeks Protection) [facility] Start: 2016 PEDS TO ADULT TRANSI TION ANNUAL ASSESSMENT PEDS TO ADULT TRANSITION ANNUAL ASSESSMENT [facility] Start: 2014 Adult depression screening assessment DEPRESSION SCREENING [facility] Start: 2014 PEDS TO ADULT TRANSI TION INITIAL DISCUSSION PEDS TO ADULT TRANSITION INITIAL DISCUSSION [facility] Start: 2012 MENINGOCOCCAL B: Consider based on risk (1 of 2 - Risk Bexsero 2-dose series) MENINGOCOCCAL B: Consider based on risk (1 of 2 - Risk Bexsero 2-dose series) [facility] Bacteria identified in Urine by Culture URINE CULTURE Microbiology Routine Dysuria Ordered: 03/04/2022 [facility] Work Phone: Comment on above: Ordered: 03/04/2022 Bacteria identified in Urine by Culture URINE CULTURE Microbiology Routine UTI symptoms 11/23/2023 12:33 PM EST [facility] Work Phone: BACTERIAL VAGINOSIS AMPLIFICATION BACTERIAL VAGINOSIS AMPLIFICATION Lab Routine Vaginal discharge Vaginal odor 07/16/2022 4:38 PM EDT [facility] Work Phone: JOHN / TRICHOMONA S AMPLIFICATION JOHN / TRICHOMONAS AMPLIFICATION Microbiology Routine Vaginal discharge Vaginal odor 07/16/2022 4:38 PM EDT [facility] Work Phone: Chlamydia trachomatis+Neisseria gonorrhoeae DNA [Presence] in Unspecified specimen by TESS with probe detection GC/CHLAMYDIA DNA DET Lab Routine Vaginal discharge Vaginal odor 07/16/2022 4:38 PM [facility] Work Phone: INDUCTION L&D INDUCTION L&D Procedures Routine Encounter for supervision of normal in third trimester, unspecified 1 Occurrences starting 07/23/2023 [facility] Work Phone: Comment on above: 1 Occurrences starti ng 07/23/2023 End: 06-17-2024 OXIMETRY AT REST OXIMETRY AT REST PFT Routine Sore throat 1 Occurrences starting 05/19/2023 until 06/17/2024 [facility] Work Phone: Comment on above: 1 Occurrences starti ng 05/19/2023 until 06/17/2024 PAP TEST PAP TEST Lab [facility] mei care and examination Cervical cancer screening Ordered: 09/14/2023 [facility] Work Phone: Comment on above: Ordered: 09/14/2023 POC CAKE PRESS OPERATOR ULTRASOUND POC CAKE PRESS OPERATOR ULTRASO UND Anc Imaging Routine Encounter for supervision of normal first in first trimester Ordered: 12/25/2022 [facility] Work Phone: Comment on above: Ordered: 12/25/2022 End: 07-31-2023 Radex spine thoracic 3 views XR THORACIC GENERAL 3V AP/LAT/SWIMMERS Radiology Routine Chronic bilateral thoracic back pain 1 Occurrences starting 07/01/2022 until 07/31/2023 [facility] Work Phone: Comment on above: 1 Occurrences starti ng 07/01/2022 until 07/31/2023 ROUTINE, GR OUP B STREP PCR ROUTINE, GROUP B STREP PCR Microbiology Routine Encounter for supervision of normal in third trimester, unspecified 07/16/2023 4:14 PM EDT [facility] Work Phone: UA DIP B/O UA DIP B/O Lab R outine Dysuria Ordered: 03/04/2022 [facility] Work Phone: Comment on above: Or[facility]: [facility]04[facility]20[facility] Immunizations Immunization Date Immunization Notes Care Provider Bob still 06-25-2023 influenza, injectabl e, quadrivalent, contains preservative Elysia Collier MD Work Phone: [facility] 06-25-2023 influenza virus vacc ine, unspecified formulation Linda Márquez SILO PAINTER.WIRE WEB WORKER Work Phone: [facility] 05-21-2023 tetanus toxoid, redu garett diphtheria toxoid, and acellular pertussis vaccine, adsorbed Remi Powell MD Work Phone: [facility] 07-17-2022 influenza, injectabl e, quadrivalent, contains preservative Hellen Paez MD Work Phone: [facility] 08-22-2021 COVID-19 vaccine, ag e 12+ yr ([employer] - PURPLE TOP) Maegan Stinson SILO PAINTER.WIRE WEB WORKER Work Phone: [facility] 07-03-2021 influenza, injectabl e, quadrivalent, contains preservative Maegan Stinson SILO PAINTER.WIRE WEB WORKER Work Phone: [facility] Work Phone: 06-18-2020 meningococcal polysaccharide (groups A, C, Y and W-135) diphtheria toxoid conjugate vaccine (MCV4P) Maegan Stinson SILO PAINTER.WIRE WEB WORKER Work Phone: [facility] Work Phone: 06-16-2018 Human Papillomavirus 9-valent vaccine Maegna Stinson SILO PAINTER.WIRE WEB WORKER Work Phone: [facility] Work Phone: 06-14-2017 Human Papillomavirus 9-valent vaccine Maegan Stinson SILO PAINTER.WIRE WEB WORKER Work Phone: [facility] Work Phone: 05-15-2015 meningococcal oligosaccharide (groups A, C, Y and W-135) diphtheria toxoid conjugate vaccine (MCV4O) Maegan Stinson APRN.WIRE WEB WORKER Work Phone: [facility] Work Phone: 05-15-2015 tetanus toxoid, redu garett diphtheria toxoid, and acellular pertussis vaccine, adsorbed Maegan Stinson APRN.WIRE WEB WORKER Work Phone: [facility] Work Phone: 06-26-2014 influenza virus vacc ine, live, attenuated, for intranasal use Maegan Stinson APRN.WIRE WEB WORKER Work Phone: [facility] Work Phone: 03-21-2012 hepatitis A vaccine, pediatric/adolescent dosage, 2 dose schedule Maegan Stinson APRN.[facility] Work Phone: [facility] Work Phone: 07-28-2011 influenza virus vacc ine, live, attenuated, for intranasal use Maegan Stinson APRN.WIRE WEB WORKER Work Phone: [facility] Work Phone: 03-04-2011 hepatitis A vaccine, pediatric/adolescent dosage, 2 dose schedule Maegan Stinson APRN.[facility] Work Phone: [facility] Work Phone: 07-15-2010 influenza virus vacc ine, live, attenuated, for intranasal use Maegan Stinson APRN.WIRE WEB WORKER Work Phone: [facility] Work Phone: 08-18-2008 influenza virus vacc ine, live, attenuated, for intranasal use Maegan Stinson APRN.W[employer] WE[employer] WORKER Work Phone: [facility] Work Phone: 04-08-2007 diphtheria, tetanus toxoids and acellular pertussis vaccine, unspecified formulation Maegan Stinson APRN.WIRE WEB WORKER Work Phone: [facility] Work Phone: 04-08-2007 measles, mumps and rubella virus vaccine Maegan Stinson APRN.WIRE WEB WORKER Work Phone: [facility] Work Phone: 04-08-2007 poliovirus vaccine, unspecified formulation Maegan Stinson APRN.W[employer] WEB WORKER Work Phone: [facility] Work Phone: 04-08-2007 varicella virus vaccine Shannan Stinson APRN.WIRE WEB WORKER Work Phone: [facility] Work Phone: 06-19-2004 poliovirus vaccine, unspecified formulation Maegan Stinson APRN.WIRE WE[employer] WORKER Work Phone: [facility] Work Phone: 04-03-2004 diphtheria, tetanus toxoids and acellular pertussis vaccine, unspecified formulation Maegan Stinson APRN.[facility] Work Phone: [facility] Work Phone: 04-03-2004 haemophilus influenz ae type b vaccine, conjugate unspecified formulation Maegan Stinson APRN.[facility] Work Phone: [facility] Work Phone: 01-25-2004 measles, mumps and rubella virus vaccine Maegan Stinson APRN.[facility] Work Phone: [facility] Work Phone: 01-25-2004 varicella virus vaccine Shannan Stinson APRN.[facility] Work Phone: [facility] Work Phone: 10-18-2003 hepatitis B vaccine, pediatric or pediatric/adolescent dosage Maegan Stinson APRN.W[employer] WE[employer] WORKER Work Phone: [facility] Work Phone: 06-21-2003 diphtheria, tetanus toxoids and acellular pertussis vaccine, unspecified formulation Maegan Stinson APRN.[facility] Work Phone: [facility] Work Phone: 06-21-2003 haemophilus influenz ae type b vaccine, conjugate unspecified formulation Maegan Stinson APRN.W[employer] WE[employer] WORKER Work Phone: [facility] Work Phone: 06-21-2003 pneumococcal conjuga te vaccine, 7 valent Maegan Stinson APRN.[facility] Work Phone: [facility] Work Phone: 04-09-2003 diphtheria, tetanus toxoids and acellular pertussis vaccine, unspecified formulation Maegan Stinson APRN.WIRE WE[employer] WORKER Work Phone: [facility] Work Phone: 04-09-2003 haemophilus influenz ae type b vaccine, conjugate unspecified formulation Maegan Stinson APRN.WIRE WEB WORKER Work Phone: [facility] Work Phone: 04-09-2003 pneumococcal conjuga te vaccine, 7 valent Maegan Stinson APRN.[facility] Work Phone: [facility] Work Phone: 04-09-2003 poliovirus vaccine, inactivated Maegan Stinson APRN.[facility] Work Phone: [facility] Work Phone: 02-01-2003 diphtheria, tetanus toxoids and acellular pertussis vaccine, unspecified formulation Maegan Stinson APRN.[facility] Work Phone: [facility] Work Phone: 02-01-2003 haemophilus influenz ae type b conjugate and Hepatitis B vaccine Maegan Stinson APRN.[facility] Work Phone: [facility] Work Phone: 02-01-2003 pneumococcal conjuga te vaccine, 7 valent Maegan Stinson APRN.W[employer] WE[employer] WORKER Work Phone: [facility] Work Phone: 02-01-2003 poliovirus vaccine, inactivated Maegan Stinson APRN.[facility] Work Phone: [facility] Work Phone: 2002 hepatitis B vaccine, pediatric or pediatric/adolescent dosage Maegan Stinson APRN.[facility] Work Phone: [facility] Work Phone: Payers Date Payer Category Payer Unknown [id number] 2024 Self-pay 2022 Unknown [id number] 2022 Medicaid [id number] 2021 Private Health Insurance EHP AET NA EHP STAFF/NON STAFF / EHP [facility] [id number] 2021-Present [address] [place], [place] [id number] EPO [id number]. [id number] 2021 Private Health Insurance [id number] .[id number]. [id number] 2021 Medicaid [employer] [id number] 2021-Present [phone] [address] [place] [address] Medicaid [id number]. [id number] 2021 Medicaid [id number]. 1.13.159.2. 7.3.884051.315 2002 Unknown [id number] 2.16840.1.939441.3.579.2. 479 Unknown [id number] Unknown [id number] 2.840.1.648396.3.579.2. 462 Unknown [id number] 2.16840.1.372689.3.579.2. 462 Unknown [id number] 2.16840.1.924804.3.579.2. 462 Unknown [id number] 2.16840.1.355625.3.579.2. 462 Unknown [id number] 2.16840.1.352854.3.579.2. 462 Unknown [id number] 2.16840.1.835038.3.579.2. 462 Unknown [id number] 2.16840.1.068115.3.579.2. 462 Unknown [id number] 2.16840.1.220907.3.579.2. 462 Unknown [id number] 2.16.840.1.692429.3.579.2. 462 Unknown [id number] 2.16.840.1.200718.3.579.2. 462 Unknown [id number] 2.840.1.919817.3.579.2. 462 Unknown [id number] 2.840.1.640238.3.579.2. 462 Unknown [id number] 2.840.1.545465.3.579.2. 462 Unknown [id number] 2.840.1.386242.3.579.2. 462 Unknown [id number] 2.840.1.893939.3.579.2. 462 Unknown [id number] 2.840.1.327485.3.579.2. 462 Unknown [id number] 2.840.1.112681.3.579.2. 462 Unknown [id number] .840.1.136512.3.579.2. 462 Unknown [id number] 2.840.1.713743.3.579.2. 462 Unknown [id number] 2.840.1.560825.3.579.2. 462 Unknown [id number] 2.840.1.430213.3.579.2. 462 Unknown [id number] 2.840.1.133687.3.579.2. 462 Unknown [id number] 2.840.1.800107.3.579.2. 462 Unknown [id number] 2.840.1.528728.3.579.2. 462 Unknown [id number] 2.840.1.364696.3.579.2. 462 Unknown [id number] 2.840.1.435816.3.579.2. 462 Unknown [id number] 2.840.1.902083.3.579.2. 462 Unknown [id number] 2.840.1.577101.3.579.2. 462 Unknown [id number] 2.840.1.464616.3.579.2. 462 Unknown [id number] 2.840.1.793799.3.579.2. 462 Social History Date Type Detail Facility Start: 12-30-2021 End: 05-21-2023 Tobacco smoking status NHIS Never smoked tobacco [facility] Start: 12-30-2021 End: 05-21-2023 Tobacco use and exposure Smokeless tobacco non-user [facility] Start: 12-30-2021 End: 01-24-2024 Alcohol intake Ex-drinker (finding) [facility] Start: 2000 Sex Assigned At Female C [facility] Start: 02-22-2022 End: 07-22-2022 Exposure to SARS-CoV-2 (event) Not sure [facility] Start: 03-22-2022 End: 07-10-2022 History SDOH Alcohol Frequency 3 [facility] Start: 03-22-2022 History SDOH Alcohol Std Drinks 1 [facility] Start: 03-22-2022 End: 07-10-2022 History SDOH Social Connections Phone 2 [facility] Start: 03-22-2022 History SDOH Social Connections Living 98 [facility] Start: 03-22-2022 History SDOH Physica l Activity DPW 5 [facility] Start: 04-10-2022 End: 04-16-2022 Alcohol intake Current drinker of alcohol (finding) [facility] Start: 04-10-2022 History SDOH Alcohol Comment social [facility] Start: 11-13-2022 [facility] Start: 04-20-2023 End: 05-21-2023 History of Social function [facility] Start: 04-20-2023 End: 05-21-2023 Tobacco use panel [facility] Adult Depression Screening Assessment 4 [facility] At any time in the past 12 months, were you homeless or living in longterm [including now]? No [facility] Start: 09-19-2021 Gender identity Identifies as female gender (finding) [facility] Start: 09-19-2021 Sexual orientation Heterosexual (sandra garcia) [facility] Are you now , , , , never or living with a partner? Refused [facility] How hard is it for y ou to pay for the very basics like food, housing, medical care, and heating Somewhat hard [facility] Do you feel stress - tense, restless, nervous, or anxious, or unable to sleep at night because your mind is troubled all the time - these days [OSQ] To some extent [facility] (I/We) worried wheth er (my/our) food would run out before (I/we) got money to buy more. Never true [facility] NEGATED: Highlighted rowStart: NINF History of tobacco use Passive smoker [facility] Goals Date Patient Goal Desired Activity /State Personal health goal Clinical Notes 02-03-2022 to 02-22-2025 Elizabeth Robertson MD - 07/12/2024 10:34 AM Linda Pagan APRN.WIRE WEB WORKER - 07/11/2024 12:43 PM Jennifer Ness MD - 01/24/2024 3:25 PM Jeannine Garcia SILO PAINTER.WIRE WEB WORKER - 11/23/2023 12:08 PM EST Note Date & Type Note Facility 02-22-2025 Note HNO ID: [id number] Author: MAGDA CARRANZA MA Service: ? Author Type: Computer Engineering Technologist Type: Progress Notes Filed: 02/22/2025 14:37 Note Text: POPULATION HEALTH NAVIGATION OUTREACH Action/FYI Patient is on Off-boarding and needs appt [...] Carranza MA February 22, 2025 2:35 PM [facility] 02-22-2025 Note Patient Outreach (LIONEL TNAV) NATA QUEZADA ([id number]) 02 F [facility] Date Time Provider Department 02/22/25 MAGDA CARRANZA During your visit today, we recorded the following information about you: Magda Carranza MA 02/22/2025 2:37 PM Signed POPULATION HEALTH NAVIGATION OUTREACH Action/FYI Patient is on Off-boarding and needs appt [...] Encounter Status:Closed by MAGDA CARRANZA on 02/22/25 [facility] 07-12-2024 Note HNO ID: [id number] Author: ELIZABETH ROBERTSON MD Service: ? 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 Encounter Diagnosis ICD-10-CM 1. Pelvic pain in female R10.2 Please see report under imaging tab. 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 Encounter Diagnosis ICD-10-CM 1. Pelvic pain in female R10.2 Please see report under imaging tab. Elizabeth Robertson MD July 12, 2024 10:34 AM documented in this encounter [facility] 07-11-2024 History of Presen t illness Narrative Patinet declined head filter tank tender helper. Nata QUEZADA presents today for IUD check. She had a Paraguard placed on 10/01/2023. She has had pain since placement. Patient reported ultrasound 07/11/2024, reported unable to locate strings. REVIEW OF SYSTEMS: PAIN ASSESSMENT: Negative for pain, history of chronic pain, or current treatment for a chronic pain condition. SENSITIVE EXAM: The sensitive examination was discussed with the Patient or Patient's Authorized Independent Jeweler. As applicable, any other physician, advance practice provider, medical student, or other health professional student that will be observing or involved in the sensitive examination for educational or training purposes was discussed with the Patient or Authorized Independent Jeweler. The Patient or Authorized Independent Jeweler has agreed to proceed with the sensitive [...] 3 - Low documented in this encounter [facility] 07-11-2024 Note HNO ID: [id number] Author: LINDA MÁRQUEZ APRN.CNP Service: ? Author Type: Nurse Practitioner Type: Progress Notes Filed: 07/11/2024 13:01 Note Text: Joanne declined head filter tank tender helper. Nata QUEZADA presents today for IUD check. She had a Paraguard placed on 10/01/2023. She has had pain since placement. Patient reported ultrasound 07/11/2024, reported unable to locate strings. REVIEW OF SYSTEMS: PAIN ASSESSMENT: Negative for pain, history of chronic pain, or current treatment for a chronic pain condition. SENSITIVE EXAM: The sensitive examination was discussed with the Patient or Patient's Authorized Independent Jeweler. As applicable, any other physician, advance practice provider, medical student, or other health professional student that will be observing or involved in the sensitive examination for educational or training purposes was discussed with the Patient or Authorized Independent Jeweler. The Patient or Authorized Independent Jeweler has agreed to proceed with the sensitive [...] masses IMPRESSION/PLAN: IUD correctly positioned. Linda Márquez APRN.VIRGEN Medical Decision Making: Problems: Low: Acute, uncomplicated illness or injury Risk: Low: Low risk from testing/treatment Medical Decision Making Level: 3 - Low [facility] 01-24-2024 History of Presen t illness Narrative Mrb Engineer offered: Patient declines. Nata QUEZADA presents today [...] L1 SAB0 IAB0 Ectopic0 Multiple0 Live Births1 Contract Programmer History LMP: 01/04/2024 (Exact Date), IUD Age at Menarche: 15 Age at First : Age at Menopause: Contract Programmer History Comments: Sexual Activity: Not Currently; Male [...] external genitalia normal, normal Bartholin's glands, urethra, Leggett's glands, no vulvar lesions, no cervical lesions, [...] option> May elect to change to mirena. Jennifer Estrada MD documented in this encounter [facility] 11-23-2023 History of Presen t illness Narrative [...] 22 year old female who presents to [facility] walk in clinic for the following: Starting [...] 22 year old female who presents to [facility] walk in clinic for UTI Sx that [...] to improve. Signed: Jeannine Merrill APRN.CNP [facility] I spent a total of 25 minutes on the date of the service which included preparing to see the patient, [id number] patient care, completing clinical documentation, obtaining and/or reviewing separately obtained history, performing a medically appropriate examination, counseling and educating the patient/family/caregiver, and ordering medications, tests, or procedures. documented in this encounter [facility] 09-14-2023 Miscellaneous Notes Addended by: REMI POWELL on: 09/14/2023 03:28 PM Modules accepted: Orders documented in this encounter [facility] 09-14-2023 History of Presen t illness Narrative VISIT Nata Penaloza is a 22 year old year old here for visit. Delivery Summary: Oseas Quezada [[id number]] Delivery Information: Delivery Date: 07/28/23 Delivery type: Vaginal, Spontaneous Delivering Clinician: Yodit Fuchs MD Vacuum Used: No Forceps Used: No Shoulder Dystocia Present: No Lacerations: 1st Episiotomy: None [place]: Gender: Male Weight (grams): 2772 g One Minute : 9 Five Minute : 9 ROS/ Recovery: Feeding: Breast and bottle feeding problems: None Menses since delivery: none Menstrual pattern prior to : Regular periods [place] since delivery: Resumed Depression: denies symptoms of [...] external genitalia normal, normal Bartholin's glands, urethra, Leggett's glands, no vulvar lesions, no cervical lesions, [...] Remi Powell MD documented in this encounter [facility] 08-20-2023 Miscellaneous Notes Summary: call back OB Post Discharge Patient Call Back: Date: 08/20/2023 Patient Name: Nata Penaloza : 2000 Delivery Summary: Oseas Quezada [[id number]] Delivery Information: Delivery Date: 07/28/23 Delivery type: Vaginal, Spontaneous Delivering Clinician: Yodit Fuchs MD Vacuum Used: No Forceps Used: No Shoulder Dystocia Present: No Lacerations: 1st Episiotomy: None : Gender: Male Weight (grams): 2772 g One Minute : 9 Five Minute : 9 Patient was contacted after her inpatient discharge from [facility]. She reported the following as it relates [...] the patient. She reported the following. The (s) sleeps in: Bassinet Baby in need of a crib/Esok-yeb-Rmmq: No Baby's feeding: Method: Human milk only. Breast Feeding Problems: Per Nata, no problems BF but is also starting to pump and feed the EBM back to baby via bottle. Frequency: Within Normal Limits Education: N/A Baby's elimination habits: Average wet diapers: Within Normal Limits Average dirty diapers: Within Normal Limits Education: N/A Follow-up appointments: Scheduled appointment with a pattern scratcher: Has seen Scheduled a follow up appointment with OB provider: Has seen Suggestions/Concerns: Things that could have been done better during your stay: N/A Current concerns: N/A Referral(s): Patient referred to: Nata was given the department's phone number as she stated that she did not have it incase she may need it in the future. Adilia Kirkpatrick RN documented in this encounter [facility] 08-19-2023 Instructions Elysia Collier MD - 08/19/2023 [...] Committee Opinion No. 670, May 2016. [employer] Gonsalo RA, Jyothi J, Dony AL, Renetta VangJ, Juan Barbour, Lauryn MS. Contraceptive Technology. 20th rev. ed. [place]: [employer]; 2010 Gurtnancy SE, Roshni DK, Alexei G, Greg PA, Cory M, Perry KP. Lactogenesis after early use of the contraceptive implant: a randomized controlled trial. Obstetrics & Gynecolog 2011;117:1114-21 Belen AriasD, Yinka ER, Guzman AM, Tobi JM, Peter T, Krystina EF. Insertion of Levonorgestrel-intrauterine system at three time periods:a prospective randomized pilot plant research technician study. Contraception 2011;84:244-8. Patty BA, Amena M, Ernesto JL, Stepan HL, Denilson VAUGHN, Aldo ÁLVAREZ. Postplacental or delayed insertion of the levonorgestrel intrauterine device after vaginal delivery: a randomized controlled trial. Obstetrics & Gynecology 2010;116:1079-87. Up to Date: Intrauterine Contraception: Devices, Candidates and Selection, updated 04/02/17. Up to Date: Etonorgestrel Contraceptive Implant, updated 08/07/16 documented in this encounter [facility] 08-19-2023 History of Presen t illness Narrative EARLY VISIT Nata Penaloza is a 22 year old here for 3 week visit. Mrb Engineer offered: Patient declines. Delivery Summary: Oseas Quezada [[id number]] Delivery Information: Delivery Date: 07/28/23 Delivery type: [...] in bassinet/crib in parent's room, feels rested [place] since delivery: Not resumed Emotional support: Yes [...] Elysia Collier MD documented in this encounter [facility] 08-04-2023 History of Presen t illness Narrative BP 128/78 manual, 138/90 by home electronic cuff. Report to Dr. Collier who reviewed patient's Happy Inspector message with reported pressures from home. No new orders at this time. Patient to continue taking and recording home pressures and report them on Wednesday before lunch, to call or go in to triage for >150/>105. Patient verbalizes understanding and agreement with POC. Rajni Parmar RN documented in this encounter [facility] 07-30-2023 Note HNO ID: [id number] Author: Jenni Brady CPhT Service: Pharmacy Author Type: [place] Planning Manager Type: Plan of Care Filed: 07/30/2023 11:20 AM Note Text: PHARMACY BEDSIDE DELIVERY SERVICE Patient Name: Nata Penaloza The marked outpatient medications were Filled at: [place] and delivered to the patient's bedside to [...] or your Primary Care Provider. Jenni Brady CPhT PAGER: Jenni Brady [phone] 07/30/23 11:20 AM July 30, 2023 11:[address] [facility] 07-30-2023 Note HNO ID: [id number] Author: Delaney Durand APRN.CNM Service: Obstetrics Author Type: Furnace Attendant Type: Progress Notes Filed: 07/30/2023 7:26 AM [...] HT/WT/BMI: Height Weight BMI 162.6 cm (5' 4) 73.9 kg (163 lb) 27.98 LABS ABO/RH: 07/27/2023: B; Positive RUBELLA: 12/25/2022: Positive HANDH: Hematocrit (%) Date Value 07/27/2023 39.6 Hemoglobin (g/dL) Date Value 07/27/2023 13.8 Diagnostic tests reviewed for today's visit: Most recent labs SIGNATURE: Delaney Baer APRN.CNM PATIENT NAME: Nata Penaloza DATE: July 30, 2023 TIME: 7:[address] [facility] 07-30-2023 Note HNO ID: [id number] Author: An Azevedo MD Service: Obstetrics Author [...] HT/WT/BMI: Height Weight BMI 162.6 cm (5' 4) 73.9 kg (163 lb) 27.98 LABS ABO/RH: 07/27/2023: B; Positive RUBELLA: 12/25/2022: Positive HANDH: Hematocrit (%) Date Value 07/27/2023 39.6 Hemoglobin (g/dL) Date Value 07/27/2023 13.8 Diagnostic tests reviewed for today's visit: Most recent labs and imaging results. SIGNATURE: An Azevedo MD PATIENT NAME: Nata Penaloza DATE: July 30, 2023 TIME: 6:[address] [facility] 07-29-2023 Note HNO ID: [id number] Author: Delaney Durand APRN.CNM Service: Obstetrics Author Type: Furnace Attendant Type: Progress Notes Filed: 07/29/2023 7:37 AM [...] HT/WT/BMI: Height Weight BMI 162.6 cm (5' 4) 73.9 kg (163 lb) 27.98 LABS ABO/RH: 07/27/2023: B; Positive RUBELLA: 12/25/2022: Positive HANDH: Hematocrit (%) Date Value 07/27/2023 39.6 Hemoglobin (g/dL) Date Value 07/27/2023 13.8 Diagnostic tests reviewed for today's visit: Most recent labs SIGNATURE: Delaney Baer APRN.CNM PATIENT NAME: Nata Penaloza DATE: July 29, 2023 TIME: 7:[address] [facility] 07-29-2023 Miscellaneous Notes Please schedule a one week BP check. Thanks Delaney Baer APRN.CNM documented in this encounter [facility] 07-29-2023 Note HNO ID: [id number] Author: An Azevedo MD Service: Obstetrics Author [...] HT/WT/BMI: Height Weight BMI 162.6 cm (5' 4) 73.9 kg (163 lb) 27.98 LABS ABO/RH: 07/27/2023: B; Positive RUBELLA: 12/25/2022: Positive HANDH: Hematocrit (%) Date Value 07/27/2023 39.6 Hemoglobin (g/dL) Date Value 07/27/2023 13.8 Diagnostic tests reviewed for today's visit: Most recent labs and imaging results. SIGNATURE: An Azevedo MD PATIENT NAME: Nata Penaloza DATE: July 29, 2023 TIME: 6:[address] [facility] 07-28-2023 Note HNO ID: [id number] Author: Carie Botello DO Service: Obstetrics Author Type: Resident Type: Progress Notes Filed: 07/28/2023 8:01 AM Note Text: Patient pushing. Dr. Fuchs in house. SIGNATURE: Carie Botello DO PATIENT NAME: Nata Penaloza DATE: 07/28/2023 TIME: 8:01 AM PAGER/CONTACT #: [id number] [facility] 07-28-2023 Note HNO ID: [id number] Author: Ada Baird MD Service: Obstetrics Author Type: Physician Type: Progress Notes Filed: 07/28/2023 7:38 AM Note Text: Attending Staff Note: Responded to 6 min prlonged decel to 90's after runn of >5 contractions in 10 minutes. Pitocin D/C'd. Positional change. BP 143/93 Pulse (!) 137 Temp 36.5 ?C (97.7 ?F) (Temporal) Resp 16 Ht 162.6 cm (5' 4) Wt 73.9 kg (163 lb) LMP 10/30/2022 (Exact Date) SpO2 98% BMI 27.98 kg/m? 07/28/23 0143 07/28/23 0443 07/28/23 0605 07/28/23 0715 Dilation: 5 5 5.5 10 Effacement (%): 70 70 70 100 Station: -2 -2 -1 2 MONITORING/ASSESSMENT: Baseline: 130 bpm (07/28/23 0700 : Ashlyn Palmer RN) Variability: Moderate (6-25 bpm) (07/28/23 0700 : Ashlyn Palmer RN) Accelerations: Absent (07/28/23 07 : Ashlyn Palmer RN) Decelerations: Decelerations: (!) Variable (07/28/23 0700 : Ashlyn Palmer RN), Decel Frequency: Intermittent (07/28/23 07 : Ashlyn Palmer RN) Contractions: Regular (07/28/23 0700 : Spencer, Ashlyn, RN) Frequency: q2 (07/28/23 0700 : Ashlyn Palmer, [facility]) A/p: Prolonged decel related to uterine activity and complete dilation -Dr. Fuchs called after tracing stabilized. On her way in. Ada Baird MD :38 AM Ada Baird MD :[address] [facility] 07-28-2023 Note HNO ID: [id number] Author: Radha Bran DO Service: Obstetrics Author Type: Resident Type: Progress Notes Filed: 07/28/2023 6:15 AM Note Text: OB Labor Progress Note Service Date: July 28, 2023 Service Time: 6:14 AM S: Nata is doing well, comfortable with epidural. O: Vitals: BP 123/75 Pulse 63 Temp 36.5 ?C (97.7 ?F) (Temporal) Resp 16 Ht 162.6 cm (5' 4) Wt 73.9 kg (163 lb) LMP 10/30/2022 (Exact Date) SpO2 98% BMI 27.98 kg/m? CERVICAL EXAM: Dilation: 5.5 (07/28/23 0605 : Darling Rust DO) Effacement (%): 70 [...] DATE: July 28, 2023 TIME: 6:[address] [facility] 07-28-2023 Note HNO ID: [id number] Author: Radha Bran DO Service: Obstetrics Author [...] (Temporal) Resp 18 Ht 162.6 cm (5' 4) Wt 73.9 kg (163 lb) LMP 10/30/2022 (Exact Date) SpO2 98% BMI 27.98 kg/m? CERVICAL EXAM: Dilation: 5 (07/28/23442 : Radha Bran DO) Effacement (%): 70 (07/28/23442 : Radha Bran DO) Station: -2 (07/28/23442 : Radha Bran DO) Presentation: (not recorded) MEMBRANES: Status: Membrane Status: Artificial ROM after labor (07/28/23442 : Radha Bran DO) SVE performed /-2, head well applied. heart tracing was Category [...] DATE: July 28, 2023 TIME: 4:[address] 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 07-28-2023 Note HNO ID: [id number] Author: Coral Freeman MD Service: Obstetrics Author Type: Resident Type: Progress Notes Filed: 07/28/2023 1:51 AM Note Text: OB Labor Progress Note Service Date: July 28, 2023 Service Time: 1:49 AM S: Patient uncomfortable, requesting epidural at this time. O: Vitals: BP 132/89 Pulse 88 Temp 36.8 ?C (98.2 ?F) (Temporal) Resp 16 Ht 162.6 cm (5' 4) Wt 73.9 kg (163 lb) LMP 10/30/2022 (Exact Date) BMI 27.98 kg/m? CERVICAL EXAM: Dilation: 5 (07/28/23142 : Leelee Saini MD) Effacement (%): 70 (07/28/23142 : Leelee Saini MD) Station: -2 (07/28/23142 : Leelee Saini MD) Presentation: (not recorded) MEMBRANES: Status: Membrane Status: Intact (07/27/23 225 : Coral Freeman MD) FHT: 120/Moderate (6-25 [...] DATE: July 28, 2023 TIME: 1:[address] [facility] 07-28-2023 Note HNO ID: [id number] Author: Coral Freeman MD Service: Obstetrics Author [...] (Temporal) Resp 18 Ht 162.6 cm (5' 4) Wt 73.9 kg (163 lb) LMP 10/30/2022 (Exact Date) BMI 27.98 kg/m? CERVICAL EXAM: Dilation: 4 (07/27/232256 : Coral Freeman MD) Effacement (%): 70 (07/27/232256 : Coral Freeman MD) Station: -2 (07/27/232256 : Coral rFeeman MD) Presentation: (not recorded) MEMBRANES: Status: Membrane [...] DATE: July 27, 2023 TIME: 10:[address] [facility] 07-27-2023 Note HNO ID: [id number] Author: Leelee Saini MD Service: Obstetrics Author [...] Estimated Blood Loss: None Leelee Saini MD [facility] 07-27-2023 History of Past i llness Narrative [...] of this encounter (statuses as of 07/29/2023) [facility]2023 History of Past illness Narrative* Problem Noted [...] of this encounter (statuses as of 08/04/2023) [facility] History of Past illness Narrative* Problem Noted [...] of this encounter (statuses as of 08/05/2023) [facility] History of Past illness Narrative* Problem Noted [...] of this encounter (statuses as of 08/20/2023) [facility] History of Past illness Narrative* Problem Noted [...] of this encounter (statuses as of 08/21/2023) [facility] History of Past illness Narrative* Problem Noted [...] of this encounter (statuses as of 09/15/2023) [facility] History of Past illness Narrative* Problem Noted [...] of this encounter (statuses as of 11/23/2023) [facility]23 NoteHNO ID: [id number] Author: Darling Rust DO Service: Obstetrics Author Type: Resident Type: Progress Notes Filed: 07/26/2023 8:51 PM Note Text: Return precautions for pre-eclampsia reviewed including DOMINGUEZ not responsive to tylenol, vision changes, SOB, CP, RUQ pain, and BP reading greater than 150/100. Patient verbalized understanding. Darling Rust [facility]10-23-2023 NoteHNO ID: [id number] Author: Elizabeth Storey DO Service: ? Author [...] 0.54* GLUC 71* CA 9.0 UPC 0.1 07/26/23184407/26/23189907/26/23191407/26/231929 BP: 139/98 146/105 152/103 133/90 SpO2: Patient discharged home in stable condition with plan to make appointment for bp check in the morning Reviewed with Dr. Baird and Dr. Shantal Storey DO [facility] Emergency Medicine Resident PGY-[facility] NoteHNO ID: [id number] Author: Ada Baird MD Service: Obstetrics Author Type: Physician Type: Procedures Filed: 07/26/2023 8:28 PM Note Text: OBSTETRICS NST SUMMARY SERVICE DATE: July 26, 2023 The patient is a 22 year old female, , who is at 38w3d with an EVAN of 08/06/2023, by Last Menstrual Period dating method. NST OBJECTIVE FINDINGS PER NURSE: Start Time: 1800 (07/26/231899 : Chacha Gutiérrez, EMORY) Complete Time: 1899 (07/26/231899 : Chacha Gutiérrez, RN) Indications: (r/o pre e) (07/26/231899 : Chacha Gutiérrez, RN) Patient Reason For: monitor baby (07/26/231899 : Chacha Gutiérrez, RN) NST Explanation: Monitor Explained;Procedure Explained;Verbalizes Understanding (07/26/231899 : Chacha Gutiérrez, RN) Acoustic Stimulator: No (07/26/231899 : Chacha Gutiérrez, RN) Interventions: (none) (07/26/231899 : Chacha Gutiérrez, RN) MONITORING/ASSESSMENT: Baseline: 130 bpm (07/26/231899 : Chacha Gutiérrez, RN) Variability: Moderate (6-25 bpm) (07/26/231899 : Chacha Gutiérrez, RN) Accelerations: Present (07/26/231899 : Chacha Gutiérrez, RN) Decelerations: Decelerations: None (07/26/231899 : Chacha Gutiérrez, RN) Contractions: Irregular (07/26/231899 : Chacha Gutiérrez, RN) Frequency: x3 (07/26/231899 : Chacha Gutiérrez, RN) Above information forwarded to Dr. Baird (07/26/231899 : Chacha Gutiérrez, RN) for final review and interpretation. SIGNATURE: Chacha Gutiérrez RN PATIENT NAME: Nata Penaloza DATE: July 26, 2023 TIME: 7:19 PM PROVIDER INTERPRETATION: Reactive SIGNATURE: Ada Baird MD DATE: July 26, 2023 TIME: 8:28 [facility]10-23-2023 NoteHNO ID: [id number] Author: Elizabeth Storey DO Service: Obstetrics Author [...] Penaloza DATE: July 26, 2023 TIME: 6:41 [facility]10-23-2023 Miscellaneous Notes* Telephone Encounter - Jessie [...] understanding. Jessie Whaley LPN documented in this [facility]10-20-2023 History of Present illness Narrative* Remi Powell MD - 07/23/2023 3:16 PM EDT Please refer to quick note and flow sheet. Remi Powell MD documented in this [facility]10-20-2023 Miscellaneous Notes* Quick Notes - Remi Powell [...] day. Remi Powell MD documented in this [facility]10-20-2023 Nurse Note* Karli Pineda Ma - 07/23/2023 2:52 PM EDT Movement? Active baby Vaginal Bleeding: NO Vaginal fluid leakage of fluid: NO Contractions: [place] type documented in this [facility]10-20-2023 History of Present illness Narrative* Georgiana Kasper MA - 07/23/2023 12:02 PM EDT POPULATION HEALTH NAVIGATION OUTREACH Action/FYI Called and spoke with pt and confirmed/updated pattern scratcher. Patient Identified by Name and : YES, via phone Outreach Outcome/Action OB/PEDS field updated Did you use a PCP flex slot to schedule this appointment? N/A Reason for Outreach [place] Payer: Payor: EHP AETNA / Plan: EHP [...] 23, 2023 12:03 PM documented in this [facility]10-14-2023 History of Present illness Narrative* Remi Powell MD - 07/17/2023 12:37 PM EDT Please refer to quick note and flow sheet. Remi Powell MD documented in this [facility]10-14-2023 Miscellaneous Notes* Quick Notes - Remi Powell MD - 07/17/2023 12:36 PM EDT Here for routine Visit at 37w1d. No complaints. Good movement. No vaginal bleeding, leakage of fluids, contractions. Ob education done, questions answered. GBS done. Remi Powell MD documented in this [facility]10-13-2023 Nurse Note* Kinza Fuchs Ma - 07/16/2023 3:14 PM EDT Movement? Active baby Vaginal Bleeding: NO Vaginal fluid leakage of fluid: NO Contractions: no contractions documented in this [facility]09-28-2023 History of Present illness Narrative* Remi Powell MD - 07/01/2023 6:23 PM EDT Please refer to quick note and flow sheet. Remi Powell MD documented in this [facility]09-28-2023 Miscellaneous Notes* Quick Notes - Remi Powell MD - 07/01/2023 6:22 PM EDT Here for routine Visit at 34w6d. No complaints. Good movement. No vaginal bleeding, leakage of fluids, contractions. Ob education done, questions answered. BP wnl. GBS next visit. Remi Powell MD documented in this [facility]09-28-2023 Nurse Note* Kinza Fuchs Ma - 07/01/2023 3:32 PM EDT Movement? Active baby Vaginal Bleeding: NO Vaginal fluid leakage of fluid: NO Contractions: no contractions documented in this [facility]09-23-2023 History of Present illness Narrative* Elysia Collier MD - 06/26/2023 4:10 PM EDT Please refer to flow sheet and comments for OB note. Elysia Collier MD documented in this encounterGood [facility]09-22-2023 Miscellaneous Notes* Quick Notes - Elysia [...] accepts. Elysia Collier MD documented in this encounterGood Samaritan Hospital09-22-2023 Nurse Note* Karli Pineda Ma - 06/25/2023 3:17 PM EDT Movement? Active baby Vaginal Bleeding: NO Vaginal fluid leakage of fluid: NO Contractions: no contractions documented in this [facility]08-23-2023 History of Present illness Narrative* Tonya Gerardo APRN.WIRE WEB WORKER - 05/26/2023 6:53 PM EDT This note was created using VAYAVYA LABSriter. Subjective Nata Penaloza is a 22 year old female. 22 year old female with PMH T & A who is currently 29 weeks (G1) gestational presents with complaints of illness. Sore throat Acute onset 05/18/23 Seen @ [facility], strep negative COVID negative Presents today with continued sx. Denies eye, ear, or nose complaints. Denies cough. Vaginal discharge Slightly yellow +odorous Denies vaginal bleeding. Denies sx. Denies abdominal cramping. 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 The history is provided by the patient. No career services manager was used. Sore Throat This is a [...] mouth once daily as needed for nausea/vomiting. [id number]-[id number]-[id number]-zql-wek-wzxi 27 mg iron-800 mcg-260 mg Take 1 [...] patient that express care does not handle TOOL OPERATOR complaints, She is to call her TOOL OPERATOR first thing in morning for evaluation and management. Verbalized understanding. Tonya Gerardo APRN.VIRGEN documented in this encounterGood [facility]aritan Hospital08-18-2023 History of Present illness Narrative* Remi Powell MD - 05/21/2023 9:00 AM EDT Please refer to quick note and flow sheet. Remi Powell MD documented in this encounterGood Samaritan Hospital08-18-2023 Miscellaneous Notes* Quick Notes - Remi Powell MD - 05/21/2023 9:00 AM EDT Here for routine Visit at 29w0d. No complaints. Good movement. No vaginal bleeding, leakage of fluids, contractions. Ob education done, questions answered. CBC and Tdap today. Remi Powell MD documented in this encounterGood Samaritan Hospital08-18-2023 Nurse Note* Ghislaine Baltazar MA - 05/21/2023 8:44 AM EDT Movement? Active baby Vaginal Bleeding: NO Vaginal fluid leakage of fluid: NO Contractions: no contractions documented in this encounterGood Samaritan Hospital08-16-2023 Instructions* Patient Instructions* Jerri Saab APRN.CNP - [...] the spread of infection. documented in this encounterGood Samaritan Hospital08-16-2023 History of Present illness Narrative* Jerri Saab APRN.CNP - 05/19/2023 3:02 PM EDT Images from the original note were not included. CC: 5/10 sore throat since yesterday The history is provided by the patient The patient's preferred language is Namibian PAST MEDICAL HISTORY Diagnosis Date No pertinent [...] as noted. No follow-ups on file. Signed: SHAD ArmandoC [facility] I spent a total of 15 minutes on the date of the service which included preparing to see the patient, gxfd-pk-lybf patient care, completing clinical documentation, obtaining and/or reviewing separately obtained history, performing a medically appropriate examination, counseling and educating the pat ient/family/caregiver, and ordering medications, tests, or procedures. documented in this encounterGood Samaritan Hospital07-18-2023 Miscellaneous Notes* Quick Notes - Orlando Burroughs MD - 04/20/2023 8:24 AM EDT 1 hour, W/O complaint, No LOF, No Ctx's, No Vag bleed. Juana Burroughs MD documented in this [facility]07-18-2023 Nurse Note* Kinza Fuchs Ma - 04/20/2023 8:19 AM EDT Movement? Active baby Vaginal Bleeding: NO Vaginal fluid leakage of fluid: NO Contractions: no contractions documented in this [facility]05-02-2023 History of Present illness Narrative* Remi Powell MD - 02/02/2023 2:56 PM EDT Please refer to quick note and flow sheet. Remi Powell MD documented in this encounterGood Samaritan Hospital05-02-2023 Miscellaneous Notes* Quick Notes - Remi Powell MD - 02/02/2023 2:54 PM EDT Here for routine Visit at 13w4d. No complaints. No vaginal bleeding, leakage of fluids, contractions. Ob education done, questions answered. Labs reviewed. Remi Powell MD documented in this [facility]05-01-2023 Miscellaneous Notes* Telephone Encounter - Melony Bryan [...] notified that results will be released on 02/05/ to [facility] and not to look if she does [...] instructed to follow-up with Primary OB Provider. Melony Bryan RN * Telephone Encounter - Melony Bryan RN - 02/01/2023 11:28 AM EDT Left message for patient to return call for genetic screening results. Melony Bryan RN documented in this encounterGood Samaritan Hospital04-28-2023 Nurse Note* Kinza Fuchs Ma - 01/29/2023 8:11 AM EDT Movement? 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 Remi Powell MD documented in this encounterGood Samaritan Hospital03-24-2023 Instructions* Patient Instructions* Remi Powell MD - 12/25/2022 10:05 AM EDT Please select the following link to access the [facility] Your Guide to a Healthy . [email or web address] documented in this encounterGood Samaritan Hospital03-24-2023 Nurse Note* Ghislaine Baltazar MA - 12/25/2022 9:37 AM EDT Movement? Too early Vaginal Bleeding: NO Vaginal fluid leakage of fluid: NO Contractions: no contractions documented in this encounterGood Samaritan Hospital02-27-2023 Instructions* Patient Instructions* Maegan Morrissey PA-C - 11/30/2022 12:38 PM EST OB-TEST DESK SUPERVISOR [phone] documented in this encounterGood Samaritan Hospital02-27-2023 History of Present illness Narrative* Maegan Morrissey PA-C - 11/30/2022 12:16 PM EST Images from the original note were not included. [facility] Department of General Internal Medicine [facility] Outpatient Visit Date: November 30, 2022 [...] ICD9: V72.42, ICD10: Z32.01 - CONSULT TO TOOL OPERATOR - Urine HCG positive in office today. [...] plan. Maegan Morrissey PA-C documented in this encounterGood Samaritan Hospital02-07-2023 Miscellaneous Notes* Telephone Encounter - JERI Barahona - 11/10/2022 9:35 AM EST I called Nata about the IOP at the request of Rajni Evans. She declined. documented in this encounterGood Samaritan Hospital01-31-2023 History of Present illness Narrative* EMIGDIO Tinoco - 11/03/2022 3:00 PM EST GENERAL PSYCHOLOGY Virtual Visit Verified that patient is in [facility]. This provider is also in the [facility] Patient was seen for an initial evaluation. [...] Together 3 months. 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 Stopped that job, moved to [place], but has moved back. PAST MEDICAL HISTORY [...] No Known Allergies REFERRAL SOURCE: Psychiatrist - HORIZONTAL BORING MILL SET UP OPERATOR CHIEF COMPLAINT: Reconsolidation. Therapist. HPI: was seeing another therapist who referred to me- meaning HORIZONTAL BORING MILL SET UP OPERATOR. Thought it would be helpful for [...] with friends and family, not lately. Guilt: a bit Energy: fluctuates, cycles. Feels like it changes out of the blue. Has not tried the Lamictal. I just don't want to Concentration: fair, impacted by her mood. Can [...] intention. Phobias: no irrational fears Memory: Poor, Not as good as it used to be has gotten worse over the past couple years, both short term and jail Anxiety: moderate and gets overwhelming feeling of [...] Psychiatrist: Followed here at [facility] by Frida Gamboa Therapist: No prior therapist Current Mini Baccarat Dealer: None Last Hospitalization: None SUICIDE RISK ASSESSMENT: [...] history of use or dependence PFSH: Nata ePnaloza is the oldest of 4 siblings. Two little brothers and an older sister. The patient wasborn and raised in [facility] [facility] 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 She described her childhood as loving, supportive, [...] Legal: Pt. denied any past legal history Spirituality/Mu-Ism: spiritual, believes in Gd Flashbacks + when reminded, intrusive memories +, avoidance +, issues with trust -, issues with intimacy +, emotionally reactive +, emotionally numbed +, hypervigilance +, increased startle response +, dissociation + (quite often, once or twice a week, will question 'am I real) PATIENT DATA: Generalized Anxiety Disorder Scale (FRANCI-7) [...] Talking about future goals or plans and Wemp-fxtwnld-yiqt-rejecting - Perceptions: The patient does not appear [...] through with recommendations to connect with the [facility] program due to eating disordered issues. She [...] that level of care. Patient expressed understanding thatGood [facility] providers are asked to provide short-term therapy, [...] Patient was encouraged to follow up with HORIZONTAL BORING MILL SET UP OPERATOR and discuss concerns re medication Pt was encouraged to consider IOP Pt would be served by referral to terminal gauger therapy after IOP EMIGDIO Tinoco documented in this encounterGood Samaritan Hospital12-31-2022 Miscellaneous Notes* Telephone Encounter - Rachel Glynn - 10/03/2022 12:34 PM EST Patient given results and verbalized understanding of instructions given.nm Rachel Gretta * Telephone Encounter - Jesika Stearns PA-C - 10/03/2022 10:40 AM EST Please let her know not to drink any alcohol while on the Flagyl, will make her very ill. The Diflucan sent in yesterday should take care of the yeast. If symptoms are persisting follow-up with TOOL OPERATOR. * Telephone Encounter - Radha Temple LPN [...] in. Patricia Nuno APRN.CNP documented in this encounterGood Samaritan Hospital12-30-2022 History of Present illness Narrative* Washington Goss SILO PAINTER.WIRE WEB WORKER - 10/02/2022 4:46 PM EST Subjective HPI [...] similar. Patient denies the use of any htqr-vhm-gtnukah medications or home remedies for symptom management. [...] Objective Physical Exam Exam conducted with a head filter tank tender helper present. Constitutional: General: She is not in [...] of care. This note was generated using LaunchTrack software. It may contain errors in wording, punctuation, or spelling. Washington Goss APRN.VIRGEN documented in this encounterGood Samaritan Hospital10-19-2022 History of Present illness Narrative* Wilver Montemayor [...] 22, 2022 5:16 PM documented in this encounterGood Samaritan Hospital10-14-2022 Nurse Note* Kasia Blackmon MA - 07/17/2022 [...] not greater than 100.4F/38C):NO Denies history of Guillain-[place] Syndrome (a severe paralytic illness): NO Denies [...] post injectionwithout incident. Kasia Blackmon MA * Ingrid Talamantes LPN - 07/17/2022 4:17 PM EDT [...] recent labs / tests ordered by [facility]: Yes, Is the patient active on KrowdPadhart Yes What is the patients preferred method of communication: MyCmargarito Talamantes LPN documented in this encounterGood Samaritan Hospital10-14-2022 History of Present illness Narrative* Hellen Paez [...] IM Hellen Paez MD documented in this encounterGood Samaritan Hospital10-13-2022 Instructions* Patient Instructions* Elysia Campbell APRN.CNP - 07/16/2022 4:31 PM EDT Plan: Swabs done today to evaluate discharge Recommend making sure emptying bladder completely Can try hot bath to help relax pelvic floor Elysia Campbell APRN.CNP documented in this encounterGood Samaritan Hospital10-13-2022 History of Present illness Narrative* Elysia Campbell [...] Can be painful GI - No symptoms [place] - no pain Has had some yellow discharge lately. Maybe some odor No concerns for STDs. Using condoms but accepts STD testing First sexually active at the beginning of this month. Then these symptoms all started Had to stop OCP due to mood changes Depo in the past OB History T0 L0 SAB0 IAB0 Ectopic0 Multiple0 Live Births0 Contract Programmer History LMP: 04/01/2022, Having periods Age at Menarche: 15 Age at First : Age at Menopause: Contract Programmer History Comments: Sexual Activity: Not Currently; Male [...] sodium chloride 0.65 % drop Use 1 [place] in the nose. (Patient not taking: Reported [...] medication updated:Yes EXAM: BP 118/80 Ht 5' 5 (1.65m) Wt 155 lb 3.2 oz (70.4kg) LMP 06/05/2022 BMI 25.83 kg/(m^2). GENERAL: pleasant, female in no apparent distress HEENT: Normocephalic and atraumatic NECK: Supple and full range of motion DERMATOLOGY: Normal and without lesions BREAST: deferred CHEST: Normal inspiratory effort ABDOMEN: soft, non-tender, and no masses PELVIC: external genitalia normal, normal Bartholin's glands, urethra, Leggett's glands, no vulvar lesions, no cervical lesions, [...] to help relax pelvic floor Elysia Campbell APRN.WIRE WEB WORKER Medical Decision Making: Problems: Low: Acute, uncomplicated illness or injury Data: Unique test(s) ordered: 3+ Risk: Low: Low risk from testing/treatment Medical Decision Making Level: 3 - Low documented in this encounterGood Samaritan Hospital10-05-2022 History of Present illness Narrative* Wilver Montemayor DC - 07/08/2022 3:34 PM EDT This clinical note has been produced using speech recognition software and may contain errors related to that system including grammar, punctuation, spelling and words and phrases that may be inappropriate. SUBJECTIVE: A 21-year-old female presents into the office today with continued chronic bilateral thoracic spine pain tight tense in nature 06/13 in severity coupled with bilateral lumbosacral pain [...] 08, 2022 3:34 PM documented in this encounterGood Samaritan Hospital09-30-2022 History of Present illness Narrative* RT Shawn(R) - 07/03/2022 3:00 PM EDT Radiology Service [...] 03, 2022 12:27 PM documented in this encounterGood Samaritan Hospital09-28-2022 History of Present illness Narrative* Wilver Montemayor [...] sodium chloride 0.65 % drop Use 1 [place] in the nose. (Patient not taking: Reported [...] which included preparing to see the patient, apfc-mw-hizr patient care, completing clinical documentation, performing a [...] 01, 2022 5:15 PM documented in this encounterGood Samaritan Hospital07-12-2022 History of Present illness Narrative* Carmen Ramirez [...] sodium chloride 0.65 % drop Use 1 [place]wood in the nose. montelukast (SINGULAIR) 10 mg [...] Level: 4 - Moderate documented in this encounterGood Samaritan Hospital07-12-2022 Nurse Note* Tori Garcia RN - 04/14/2022 3:06 PM EDT Tobacco Use: Never Was smoking cessation packet given? N/A - Patient is a non-smoker or quit >1 year ago. Was a referral initiated?N/A Patient is a non-smoker documented in this encounterGood Samaritan Hospital07-12-2022 History of Present illness Narrative* Lois Petersen MA - 04/14/2022 10:41 AM EDT POPULATION HEALTH NAVIGATION OUTREACH Action/FYI April 14, 2022 Spoke with patient. We have scheduled her [facility] follow up with Maxine Zhu MD on [...] this time Pt NEEDS f/u with PCP, TCM Eligible through 04/26 will forward to corporate scheduler SUMMARY: Pt discharged from [place] on 04/12/22. Admitted for: Syncope/Nausea Contact made with patient: Yes Hi my name is Frida Champagne RN and I am calling from the [facility] on behalf of your PCP, Hellen Paez [...] like to speak with a social work steam plant control room operator to help give you support for any [...] I will send your request to a corporate scheduler who will contact and assist you with that appointment. This will give you an opportunity to ask any questions or address any concerns youmay have with your PCP. Inform the patient that if they have any questions or concerns prior to that appointment, to call their PCP's office right away. ACTION TAKEN: Patient desires an appointment - Routed to [facility] [[phone]] for schedulingtelehealth visit (telephonic, virtual visit, or [...] PCP follow up SUMMARY: Pt discharged from [place] on 04/12/22. Admitted for: Syncope/Nausea Contact made with patient: No - next outreach attempt will be on next Argelia, this is Roxie dunlap registered nurse managed care specialist calling from the [facility] on behalf of your primary care providers [...] TCM Home Visit Referral Source of Stratification: [facility] Admission Status: Discharged Readmission [...] No Dialysis Patient: No documented in this encounterGood Samaritan Hospital07-08-2022 History of Present illness Narrative* Luana Nevarez APRN.WIRE WEB WORKER - 04/10/2022 5:56 PM EDT Pt presented [...] agrees. Luana Nevarez APRN.VIRGEN documented in this encounterGood Samaritan Hospital07-06-2022 History of Present illness Narrative* Maxine Dewitt APRN.CNP - 04/08/2022 11:30 AM EDT Images from the original note were not included. [facility] [place] Department of Benign Gynecology [facility] PATIENT NAME: Nata Penaloza DATE: 04/08/2022 Patient Name and verified: Yes Patient Location: [place] This Virtual Visit was completed using My Chart Zoom platform. Chief Complaint CC: control follow up History of Present Illness: Nata Penaloza is a 21 year old female here for follow up after new OCP start. She started Apri 3 months ago. Overall, she is satisfied with the OCP. Reports things are going good. She has noticed her appetite has decreased [...] active. She is on 5th floor in [facility]. Cycles are regular; bleeding during placebo week Breakthrough bleeding: No Dysmenorrhea: No Heavy flow: No Compliant: Yes Side effects: No BP: N/A Last 4 Encounter BP Readings: Date: BP: 03/31/2022 140/88[Initial Blood Pressure[ 03/04/2022 128/75 12/30/2021 104/68 OB History T0 L0 SAB0 IAB0 Ectopic0 Multiple0 Live Births0 Contract Programmer History LMP: 02/21/2022 (Approximate), Having periods Age at Menarche: 15 Age at First : Age at Menopause: Contract Programmer History Comments: Sexual Activity: Not Currently; Male [...] sodium chloride 0.65 % drop Use 1 [place] in the nose. montelukast (SINGULAIR) 10 mg [...] 4) Follow up PRN and for annual TEST DESK SUPERVISOR exams The following approved medication requests have [...] Telephone [facility] CRILE -INTERNAL USE ONLY [address] [address] SIGNATURE: Maxine Dewitt APRN.WIRE WEB WORKER PAGER: [id number] Medical Decision Making: Problems: Moderate: 1+ chronic illnesses with change Risk: Moderate: Drug management Medical Decision Making Level: 4 - Moderate documented in this encounterGood [facility]06-28-[facility]22 Instructions* Patient Instructions* Angela Ray MD - 03/31/2022 4:22 PM EDT Thank you for coming in today! It was a pleasure to see you at [facility] today. Before your next [...] access care: - To reach office, call [phone] during business hours. - To schedule an appointment or with after hours health concerns, call scheduling at [phone]. - Schedule specialty appointments, call [phone] ([phone]) - For non-urgent questions and medications refills, please send me a Happy Inspector message and allow 3 business days for a response or call [phone] - Labs can be done at any [facility] location, orders are active for 1 month Angela Ray MD Internal Medicine and Pediatrics Staff 03/31/22 4:23 PM documented in this encounterGood Samaritan Hospital06-28-2022 History of Present illness Narrative* Angela Ray MD - 03/31/2022 4:07 PM EDT [facility] - G10 [...] sodium chloride 0.65 % drop Use 1 [place] in the nose. montelukast (SINGULAIR) 10 mg [...] signs: BP 140/88 Pulse 89 Ht 5' 3.976 (1.63m) Wt 169 lb 14.4 oz (77.1kg) [...] which included preparing to see the patient, [id number] patient care, completing clinical documentation, obtaining and/or reviewing separately obtained history, performing a medically appropriate examination, counseling and educating the pat ient/family/caregiver and ordering medications, tests, or procedures. Angela Ray MD documented in this encounterGood Samaritan Hospital06-28-2022 Nurse Note* Kelvin Umaña, CT - 03/31/2022 3:53 PM EDT Nata Penaloza [...] is the patients preferred method of communication: [place] [employer] [place] documented in this encounterGood Samaritan Hospital06-07-2022 Miscellaneous Notes* Telephone Encounter - Maxine Dewitt APRN.CNP - 03/10/2022 3:17 PM EDT The following approved medication requests have been transmitted electronically. Signed Prescriptions Disp Refills Desogestrel-Ethinyl Estradiol (MARIAELENA, 28,) 0.15-0.03 mg per tablet 84 tablet 0 Sig: Take 1 tablet by mouth once daily. RONY: No Pharmacy Information Pharmacy Address Telephone [facility]INTER[facility] ONLY [address] [phone] Appointments for Next 60 Days Date Time Provider Location Dept Phone 04/08/2022 11:30 AM MAXINE DEWITT [facility] [phone] Maxine Dewitt APRN.CNP March 10, 2022 3:17 PM documented in this encounterGood Samaritan Hospital06-01-2022 Instructions* Patient Instructions* Louann Garcia PA-C - [...] treated. A physician, nurse practitioner or physician title i instructional assistant may treat with a short course [...] women if symptoms resolve. documented in this encounterGood Samaritan Hospital06-01-2022 History of Present illness Narrative* Louann Garcia PA-C - 03/04/2022 5:57 PM EDT Subjective Nata Penaloza is a 21 year old female with no significant past medical history who presents to [facility] today for evaluation of dysuria and urinary [...] which included preparing to see the patient, [id number] patient care, completing clinical documentation, performing a medically appropriate examination, counseling and educating the patient/family/caregiver and ordering medications, tests, or procedures. documented in this encounterGood Samaritan Hospital06-01-2022 History of Present illness Narrative* Romario Elias PA-C - 03/04/2022 10:29 AM EDT This is an Express Care eVisit note for Nata Penaloza eVisit/Questionnaire reviewed The chief complaint for the visit - Patient presents with: Urinary Problem Recommendations/Treatment plan - See My Chart Message to patient Romario Elias PA-C documented in this encounterGood Samaritan Hospital06-01-2022 History of Present illness Narrative* Romario Elias PA-C - 03/04/2022 10:17 AM EDT This is an Express Care eVisit note for Nata Penaloza eVisit/Questionnaire reviewed The chief complaint for the visit - Patient presents with: Urinary Problem Recommendations/Treatment plan - See My Chart Message to patient Romario Elias PA-C documented in this encounterGood Samaritan Hospital05-03-2022 History of Present illness Narrative* Maegan Stinson APRN.[facility] - 02/03/2022 2:12 PM EDT This is an Express Care eVisit note for Nata Lukasz Marshallrasheeda eVisit/Questionnaire reviewed The chief complaint for the visit - Patient presents with: UTI Recommendations/Treatment plan - See My Chart Message to patient Maegan Stinson APRN.CNP Total time spent on e-Visit: 3 minutes [facility] Diagnosis Treatment not available- Primary Procedure not carried out for other reasons documented in this encounter [facility]* Diagnosis Leukocytes in urine- Primary Other cells and casts in urine Dysuria Urinary frequency documented in this encounter [facility]* Diagnosis Encounter for initial prescription of contraceptive pills General counseling for prescription of oral contraceptives documented in this 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, congenital Other specified congenital anomaly of pharynx Cleft palate, unspecified Chronic midline 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 sciatica Vasovagal syncope Syncope and collapse documented in this encounter [facility]* Diagnosis Emergency contraception- Primary Encounter for initial prescription of contraceptive pills General counseling for prescription of oral contraceptives Decreased appetite Anorexia History of recent stressful life event documented in this encounter [facility]* Diagnosis Procedure not carried out- Primary Procedure not carried out for other reasons documented in this encounter [facility]* Diagnosis Allergic rhinitis, unspecified seasonality, unspecified trigger- Primary Dysfunction of both eustachian tubes Dysfunction of Eustachian tube documented in this encounter [facility]* Diagnosis Chronic bilateral thoracic back pain- Primary documented in this encounter [facility]* Diagnosis Chronic bilateral thoracic back pain documented in this [facility]* Diagnosis Chronic bilateral thoracic back pain- Primary Chronic bilateral 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 sciatica documented in this encounter [facility]* Diagnosis Urinary urgency- Primary Urgency of urination Feeling of incomplete bladder emptying Incomplete bladder emptying Vaginal discharge Leukorrhea, not specified as infective Vaginal odor Unspecified symptom associated with female genital organs Urinary frequency documented in this encounter [facility]* Diagnosis Primary insomnia- Primary Persistent disorder of initiating or maintaining sleep Cyclothymia Cyclothymic disorder Recurrent syncope Chronic maxillary sinusitis Encounter for immunization Need for other specified prophylactic vaccination against single bacterial disease documented in this encounter [facility]* Diagnosis Chronic bilateral thoracic back pain- Primary documented in this encounter [facility]* Diagnosis Urinary frequency- Primary Vaginal discharge Leukorrhea, not specified as infective documented in this encounter [facility]* Diagnosis Bipolar II disorder (HCC)- Primary Other bipolar disorders Post traumatic stress disorder (PTSD) Posttraumatic stress disorder Eating disorder, unspecified type documented in [facility] encounter [facility]* Diagnosis confirmed by positive urine test- Primary examination or test, positive result Possible examination or test, unconfirmed documented in this [facility]* Diagnosis Encounter for supervision of normal first in first trimester- Primary Supervision of normal first confirmed by positive urine test examination or test, positive result documented in this encounter [facility]* Diagnosis Encounter for supervision of normal first in first trimester- Primary Supervision of normal first IUD migration, initial encounter documented in this encounter [facility]* Diagnosis Candidal vaginitis- Primary Candidiasis of vulva and vagina documented in this encounter [facility]* Diagnosis Encounter for anatomic survey- Primary Encounter for screening of mother Unspecified screening documented in this encounter [facility]* Diagnosis Encounter for supervision of normal first in second trimester- Primary Supervision of normal first 24 weeks gestation of state, incidental documented in this encounter [facility]* Diagnosis Sore throat- Primary Acute pharyngitis Suspected COVID-19 virus infection documented [facility]* Diagnosis Encounter for supervision of normal first in third trimester- Primary Supervision of normal first documented in this encounter [facility]* Diagnosis Pharyngitis, unspecified etiology- Primary documented in this encounter [facility]* Diagnosis Encounter for supervision of normal in third trimester, unspecified - Primary Elevated blood pressure affecting in third trimester, antepartum Need for influenza vaccination Need for prophylactic vaccination and inoculation against influenza 34 weeks gestation of state, incidental documented [facility] this [facility]* Diagnosis Encounter for supervision of normal first in third trimester- Primary Supervision of normal first documented in this encounter [facility]* Diagnosis Encounter for supervision of normal in third trimester, unspecified - Primary documented in [facility] encounter [facility]* Diagnosis Encounter for supervision of normal in third trimester, unspecified - Primary documented in this encounter [facility]* Diagnosis BP check- Primary Screening for hypertension documented in [facility]* Diagnosis Encounter for screening for maternal depression- Primary documented in [facility] encounter [facility]* Diagnosis care and examination- Primary Routine follow-up Cervical cancer screening Screening for malignant neoplasm of the cervix documented in this encounter [facility] note* Diagnosis Acute cystitis with hematuria- Primary Acute cystitis UTI symptoms Other symptoms involving urinary system documented in this encounter [facility] note* Diagnosis Pelvic pain in female- Primary Unspecified symptom associated with female genital organs IUD check up Surveillance of previously prescribed intrauterine contraceptive device Abnormal uterine bleeding (AUB) documented in this encounter [facility]* Diagnosis Surveillance of previously prescribed intrauterine contraceptive device- Primary documented in this encounter [facility]* Diagnosis Pelvic pain in female Unspecified symptom associated with female genital organs documented [facility]* Diagnosis Ovarian cyst, right- Primary Other and unspecified ovarian cyst documented in this encounter [facility] for referral (narrative)* Diagnostic Procedure Only (Routine) - Authorized Specialty Diagnoses / Procedures Referred By Namrataac t Referred To Contact XR IMAGING Diagnoses Chronic bilateral thoracic back pain Procedures XR THORACIC GENERAL 3V AP/LAT/SWIMMERS RADEX SPINE THORACIC 3 VIEWS Wilver Montemayor DC [address] [id number] Xr Imaging Referral ID Status Reason Start Date Expiration Date Visits Requested Visits Authorized [id number] Authorized Auto-Generat ed Referral 07/01/2022 07/31/2023 1 1 [facility] for referral (narrative)* Diagnostic Procedure Only (Routine) - Closed Specialty Diagnoses / Procedures Referred By Contac t Referred To Contact XR IMAGING Diagnoses Chronic bilateral thoracic back pain Procedures XR THORACIC GENERAL 3V AP/LAT/SWIMMERS RADEX SPINE THORACIC 3 VIEWS Wilver Montemayor DC [address] [place] [address] Xr Imaging Referral ID Status Reason Start Date Expiration Date V isits Requested Visits Authorized [id number] Closed Auto-Generate d Referral 07/01/2022 07/31/2023 1 1 [facility] for referral (narrative)* Diagnostic Procedure Only (Routine) - Authorized Specialty Diagnoses / Procedures Referred By Contac t Referred To Contact [facility] Diagnoses Encounter for supervision of normal first in first trimester Procedures NUCHAL TRANSLUCENCY WHI US NUCHAL TRANSLUCENCY 1ST GESTATION Remi Powell MD [address] [address] Referral ID Status Reason Start Date Expiration Date Visits Requested Visits Authorized [id number] Authorized Auto-Generat ed Referral 12/25/2022 12/25/2023 1 1 [facility] for referral (narrative)* Outpatient Procedure (Routine) - Authorized Specialty Diagnoses / Procedures Referred By Contac t Referred To Contact [facility] Diagnoses Sore throat Procedures OXIMETRY AT REST NONINVASIVE EAR/PULSE OXIMETRY SINGLE Jerri Cartagena APRN.[employer] [address] [place] [address] [address] Referral ID Status Reason Start Date Expiration Date Visits Requested Visits Authorized [id number] Authorized Auto-Generat ed Referral 05/19/2023 06/17/2024 1 1 [facility] for referral (narrative)* Diagnostic Procedure Only (Routine) - Authorized Specialty Diagnoses / Procedures Referred By Contac t Referred To Contact [facility] Diagnoses Pelvic pain in female Procedures PELVIC US WHI US PELVIC NONOBSTETRIC REAL-TIME IMAGE COMPLETE Jennifer Estrada MD [address] [place] [address] [address] Referral ID Status Reason Start Date Expiration Date Visits Requested Visits Authorized [id number] Authorized Auto-Generat ed Referral 01/24/2024 01/23/2025 1 1 [facility] for referral (narrative)* Diagnostic Procedure Only (Routine) - New Request Specialty Diagnoses / Procedures Referred By Gonsalo t Referred To Contact [facility] Diagnoses Ovarian cyst, right Procedures PELVIC US [facility] US PELVIC NONOBSTETRIC REAL-TIME IMAGE COMPLETE Jennifer Estrada MD [address] [place] [address] [address] Referral ID Status Reason Start Date Expiration Date Visits Requested Visits Authorized [id number] New Request Auto-Generat ed Referral 07/12/2024 07/12/2025 1 1 [facility] for visit Narrative* Diagnostic Procedure Only (Routine) - Closed Specialty Diagnoses / Procedures Referred By Gonsalo t Referred To Contact [facility] Diagnoses Pelvic pain in female Procedures PELVIC US [facility] US PELVIC NONOBSTETRIC REAL-TIME IMAGE COMPLETE Jennifer Estrada MD [address] [place] [address] [address] Referral ID Status Reason Start Date Expiration Date V isits Requested Visits Authorized [id number] Closed Auto-Generate d Referral 01/24/2024 01/23/2025 1 1 [facility] Advance Directives No Advanced Directives Records FoundDocuments on File Type Date Recorded 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 Advance Directive(s) 04/10/2022 7:51 PM Documents on File Type Date Recorded 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 Advance Directive(s) 04/10/2022 7:51 PM Reason for Referral Specialty Diagnoses / Procedures Referred By Gosnalo t Referred To Contact Diagnoses Dysfunction of both eustachian tubes Procedures ADULT HEARING TEST/AUDIOGRAM COMPRE AUDIOMETRY THRESHOLD EVAL SP RECOGNIJ Carmen Ramirez MD [address] [place] [address] [facility] [address] [place] [address] Referral ID Status Reason Start Date Expiration Date Visits Requested Visits Authorized [id number] Authorized Auto-Generat ed Referral 04/14/2022 07/13/2022 1 1 Specialty Diagnoses / Procedures Referred By Contac t Referred To Contact Allergy Diagnoses Allergic rhinitis, unspecified seasonality, unspecified trigger Procedures CONSULT TO ALLERGY/IMMUNOLOGY OFFICE/OUTPATIENT [facility] 60-74 MINUTES Carmen Ramirez MD [address] [place] [address] Referral ID Status Reason Start Date Expiration Date Visits Requested Visits Authorized [id number] Authorized PCP Requested Referral 04/14/2022 04/14/2023 1 1 Specialty Diagnoses / Procedures Referred By Contac t Referred To Contact Diagnoses Recurrent syncope Procedures CONSULT TO SYNCOPE CLINIC OFFICE/OUTPATIENT [facility] 60-74 MINUTES Hellen Paez MD [address] [place] [address] Referral ID Status Reason Start Date Expiration Date Visits Requested Visits Authorized [id number] Authorized PCP Requested Referral 07/17/2023 1 1 Specialty Diagnoses / Procedures Referred By Contac t Referred To Contact ADULT PSYCHIATRY Diagnoses Bipolar II disorder (HCC) Post traumatic stress disorder (PTSD) Eating disorder, unspecified type Procedures CONSULT TO INTENSIVE OUTPATIENT PROGRAM (IOP) OFFICE/OUTPATIENT [facility] 60-74 MINUTES Rajni Evans LISW [address] [place] [address] [facility] [address] [place] [address] Referral ID Status Reason Start Date Expiration Date Visits Requested Visits Authorized [id number] Authorized PCP Requested Referral 11/03/2022 11/03/2023 1 1 Specialty Diagnoses / Procedures Referred By Contac t Referred To Contact Diagnoses confirmed by positive urine test Procedures CONSULT TO TOOL OPERATOR OFFICE/OUTPATIENT [facility] 60-74 MINUTES Maegan Morrissey PA-C [address] [place] [address] Referral ID Status Reason Start Date Expiration Date Visits Requested Visits Authorized [id number] Authorized PCP Requested Referral Auto-Generate d Referral [...] or prosecute any alcohol or drug abuse patient.[facility] HospitalIn the event this information is protected by the Federal Confidentiality of Alcohol and Drug Abuse Patient Records regulations: The Federal rules restrict any use of the information to criminally investigate or prosecute any alcohol or drug abuse patient.[facility] HospitalIn the event this information is protected by the Federal Confidentiality of Alcohol and Drug Abuse Patient Records regulations: The Federal rules restrict any use of the information to criminally investigate or prosecute any alcohol or drug abuse patient.[facility] HospitalIn the event this information is protected by the Federal Confidentiality of Alcohol and Drug Abuse Patient Records regulations: The Federal rules restrict any use of the information to criminally investigate or prosecute any alcohol or drug abuse patient.[facility] HospitalIn the event this information is protected by the Federal Confidentiality of Alcohol and Drug Abuse Patient Records regulations: The Federal rules restrict any use of the information to criminally investigate or prosecute any alcohol or drug abuse patient.[facility] ClinicIn the event this information is protected by the Federal Confidentiality of Alcohol and Drug Abuse Patient Records regulations: The Federal rules restrict any use of the information to criminally investigate or prosecute any alcohol or drug abuse patient.[facility] HospitalIn the event this information is protected by the Federal Confidentiality of Alcohol and Drug Abuse Patient Records regulations: The Federal rules restrict any use of the information to criminally investigate or prosecute any alcohol or drug abuse patient.[facility] HospitalIn the event this information is protected by the Federal Confidentiality of Alcohol and Drug Abuse Patient Records regulations: The Federal rules restrict any use of the information to criminally investigate or prosecute any alcohol or drug abuse patient.[facility] HospitalIn the event this information is protected by the Federal Confidentiality of Alcohol and Drug Abuse Patient Records regulations: The Federal rules restrict any use of the information to criminally investigate or prosecute any alcohol or drug abuse patient.[facility] HospitalIn the event this information is protected by the Federal Confidentiality of Alcohol and Drug Abuse Patient Records regulations: The Federal rules restrict any use of the information to criminally investigate or prosecute any alcohol or drug abuse patient.[facility] HospitalIn the event this information is protected by the Federal Confidentiality of Alcohol and Drug Abuse Patient Records regulations: The Federal rules restrict any use of the information to criminally investigate or prosecute any alcohol or drug abuse patient.[facility] HospitalIn the event this information is protected by the Federal Confidentiality of Alcohol and Drug Abuse Patient Records regulations: The Federal rules restrict any use of the information to criminally investigate or prosecute any alcohol or drug abuse patient.[facility] HospitalIn the event this information is protected by the Federal Confidentiality of Alcohol and Drug Abuse Patient Records regulations: The Federal rules restrict any use of the information to criminally investigate or prosecute any alcohol or drug abuse patient.[facility] HospitalIn the event this information is protected by the Federal Confidentiality of Alcohol and Drug Abuse Patient Records regulations: The Federal rules restrict any use of the information to criminally investigate or prosecute any alcohol or drug abuse patient.[facility] HospitalIn the event this information is protected by the Federal Confidentiality of Alcohol and Drug Abuse Patient Records regulations: The Federal rules restrict any use of the information to criminally investigate or prosecute any alcohol or drug abuse patient.[facility] HospitalIn the event this information is protected by the Federal Confidentiality of Alcohol and Drug Abuse Patient Records regulations: The Federal rules restrict any use of the information to criminally investigate or prosecute any alcohol or drug abuse patient.[facility] HospitalIn the event this information is protected by the Federal Confidentiality of Alcohol and Drug Abuse Patient Records regulations: The Federal rules restrict any use of the information to criminally investigate or prosecute any alcohol or drug abuse patient.[facility] HospitalIn the event this information is protected by the Federal Confidentiality of Alcohol and Drug Abuse Patient Records regulations: The Federal rules restrict any use of the information to criminally investigate or prosecute any alcohol or drug abuse patient.[facility] HospitalIn the event this information is protected by the Federal Confidentiality of Alcohol and Drug Abuse Patient Records regulations: The Federal rules restrict any use of the information to criminally investigate or prosecute any alcohol or drug abuse patient.[facility] HospitalIn the event this information is protected by the Federal Confidentiality of Alcohol and Drug Abuse Patient Records regulations: The Federal rules restrict any use of the information to criminally investigate or prosecute any alcohol or drug abuse patient.[facility] HospitalIn the event this information is protected by the Federal Confidentiality of Alcohol and Drug Abuse Patient Records regulations: The Federal rules restrict any use of the information to criminally investigate or prosecute any alcohol or drug abuse patient.[facility] HospitalIn the event this information is protected by the Federal Confidentiality of Alcohol and Drug Abuse Patient Records regulations: The Federal rules restrict any use of the information to criminally investigate or prosecute any alcohol or drug abuse patient.[facility] HospitalIn the event this information is protected by the Federal Confidentiality of Alcohol and Drug Abuse Patient Records regulations: The Federal rules restrict any use of the information to criminally investigate or prosecute any alcohol or drug abuse patient.[facility] HospitalIn the event this information is protected by the Federal Confidentiality of Alcohol and Drug Abuse Patient Records regulations: The Federal rules restrict any use of the information to criminally investigate or prosecute any alcohol or drug abuse patient.[facility] HospitalIn the event this information is protected by the Federal Confidentiality of Alcohol and Drug Abuse Patient Records regulations: The Federal rules restrict any use of the information to criminally investigate or prosecute any alcohol or drug abuse patient.[facility] HospitalIn the event this information is protected by the Federal Confidentiality of Alcohol and Drug Abuse Patient Records regulations: The Federal rules restrict any use of the information to criminally investigate or prosecute any alcohol or drug abuse patient.[facility] HospitalIn the event this information is protected by the Federal Confidentiality of Alcohol and Drug Abuse Patient Records regulations: The Federal rules restrict any use of the information to criminally investigate or prosecute any alcohol or drug abuse patient.[facility] HospitalIn the event this information is protected by the Federal Confidentiality of Alcohol and Drug Abuse Patient Records regulations: The Federal rules restrict any use of the information to criminally investigate or prosecute any alcohol or drug abuse patient.[facility] HospitalIn the event this information is protected by the Federal Confidentiality of Alcohol and Drug Abuse Patient Records regulations: The Federal rules restrict any use of the information to criminally investigate or prosecute any alcohol or drug abuse patient.[facility] HospitalIn the event this information is protected by the Federal Confidentiality of Alcohol and Drug Abuse Patient Records regulations: The Federal rules restrict any use of the information to criminally investigate or prosecute any alcohol or drug abuse patient.[facility] HospitalIn the event this information is protected by the Federal Confidentiality of Alcohol and Drug Abuse Patient Records regulations: The Federal rules restrict any use of the information to criminally investigate or prosecute any alcohol or drug abuse patient.[facility] HospitalIn the event this information is protected by the Federal Confidentiality of Alcohol and Drug Abuse Patient Records regulations: The Federal rules restrict any use of the information to criminally investigate or prosecute any alcohol or drug abuse patient.[facility] HospitalIn the event this information is protected by the Federal Confidentiality of Alcohol and Drug Abuse Patient Records regulations: The Federal rules restrict any use of the information to criminally investigate or prosecute any alcohol or drug abuse patient.[facility] HospitalIn the event this information is protected by the Federal Confidentiality of Alcohol and Drug Abuse Patient Records regulations: The Federal rules restrict any use of the information to criminally investigate or prosecute any alcohol or drug abuse patient.[facility] HospitalIn the event this information is protected by the Federal Confidentiality of Alcohol and Drug Abuse Patient Records regulations: The Federal rules restrict any use of the information to criminally investigate or prosecute any alcohol or drug abuse patient.[facility] HospitalIn the event this information is protected by the Federal Confidentiality of Alcohol and Drug Abuse Patient Records regulations: The Federal rules restrict any use of the information to criminally investigate or prosecute any alcohol or drug abuse patient.[facility] HospitalIn the event this information is protected by the Federal Confidentiality of Alcohol and Drug Abuse Patient Records regulations: The Federal rules restrict any use of the information to criminally investigate or prosecute any alcohol or drug abuse patient.[facility] HospitalIn the event this information is protected by the Federal Confidentiality of Alcohol and Drug Abuse Patient Records regulations: The Federal rules restrict any use of the information to criminally investigate or prosecute any alcohol or drug abuse patient.[facility] HospitalIn the event this information is protected by the Federal Confidentiality of Alcohol and Drug Abuse Patient Records regulations: The Federal rules restrict any use of the information to criminally investigate or prosecute any alcohol or drug abuse patient.[facility] HospitalIn the event this information is protected by the Federal Confidentiality of Alcohol and Drug Abuse Patient Records regulations: The Federal rules restrict any use of the information to criminally investigate or prosecute any alcohol or drug abuse patient.[facility] HospitalIn the event this information is protected by the Federal Confidentiality of Alcohol and Drug Abuse Patient Records regulations: The Federal rules restrict any use of the information to criminally investigate or prosecute any alcohol or drug abuse patient.[facility] HospitalIn the event this information is protected by the Federal Confidentiality of Alcohol and Drug Abuse Patient Records regulations: The Federal rules restrict any use of the information to criminally investigate or prosecute any alcohol or drug abuse patient.[facility] HospitalIn the event this information is protected by the Federal Confidentiality of Alcohol and Drug Abuse Patient Records regulations: The Federal rules restrict any use of the information to criminally investigate or prosecute any alcohol or drug abuse patient.[facility] HospitalIn the event this information is protected by the Federal Confidentiality of Alcohol and Drug Abuse Patient Records regulations: The Federal rules restrict any use of the information to criminally investigate or prosecute any alcohol or drug abuse patient.[facility] HospitalIn the event this information is protected by the Federal Confidentiality of Alcohol and Drug Abuse Patient Records regulations: The Federal rules restrict any use of the information to criminally investigate or prosecute any alcohol or drug abuse patient.[facility] HospitalIn the event this information is protected by the Federal Confidentiality of Alcohol and Drug Abuse Patient Records regulations: The Federal rules restrict any use of the information to criminally investigate or prosecute any alcohol or drug abuse patient.[facility] HospitalIn the event this information is protected by the Federal Confidentiality of Alcohol and Drug Abuse Patient Records regulations: The Federal rules restrict any use of the information to criminally investigate or prosecute any alcohol or drug abuse patient.[facility] HospitalIn the event this information is protected by the Federal Confidentiality of Alcohol and Drug Abuse Patient Records regulations: The Federal rules restrict any use of the information to criminally investigate or prosecute any alcohol or drug abuse patient.[facility] HospitalIn the event this information is protected by the Federal Confidentiality of Alcohol and Drug Abuse Patient Records regulations: The Federal rules restrict any use of the information to criminally investigate or prosecute any alcohol or drug abuse patient.[facility] HospitalIn the event this information is protected by the Federal Confidentiality of Alcohol and Drug Abuse Patient Records regulations: The Federal rules restrict any use of the information to criminally investigate or prosecute any alcohol or drug abuse patient.[facility] Reason for Visit (unrecogniz ed section and [...] CONSULT BACK EHP EMP Procedures OFFICE/OUTPATIENT NEW LOW MDM 30-44 MINUTES CHIROPRAC MANIP,SPINAL,1-2 [facility] [place]OPRA[place] [address] [place] [address] Referral ID Status Reason Start Date Expiration Date Visits Requested Visits Authorized [id number] Authorized Benefit Check 07/01/2022 10/03/2022 30 30 Reason Comments Radio Gen HB6 Radio Gen A21 Specialty Diagnoses / Procedures Referred By Contac t Referred To Contact XR IMAGING Diagnoses Chronic bilateral thoracic back pain Procedures XR THORACIC GENERAL 3V AP/LAT/SWIMMERS RADEX SPINE THORACIC 3 VIEWS Wilver Montemayor DC [address] [place] [address] Xr Imaging Referral ID Status Reason Start Date Expiration Date V isits Requested Visits Authorized [id number] Closed Auto-Generate d Referral 07/01/2022 07/31/2023 1 1 Reason Comments Wellness Full back, middle up per Specialty Diagnoses / Procedures Referred By Contac t Referred To Contact Chiropractor / WELLNESS Diagnoses Back pain CONSULT BACK EHP EMP Procedures OFFICE/OUTPATIENT NEW LOW MDM 30-44 MINUTES CHIROPRAC MANIP,SPINAL,1-2 [facility] CHIROPRACTOR Self Wilver Montemayor [place] [address] [place] [id number] Reason Comments Establish Care Reason Comments Vaginal Problem Urinary frequency, l ower abd pain and pressure x4 days Reason Comments Results Reason Comments Patient Update Reason Comments Testing Home test positive; pt seeking confirmation and next steps Reason Comments Care 8W Specialty Diagnoses / Procedures Referred By Contac t Referred To Contact Diagnoses confirmed by positive urine test Procedures CONSULT TO 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 OPERATOR OFFICE/OUTPATIENT NEW HIGH MDM 60-74 MINUTES Maegan Morrissey PA-C [address] [place] [address] Referral ID Status Reason Start Date Expiration Date V isits Requested Visits Authorized [id number] Closed PCP Requested Referral Auto-Generated Referral 11/30/2022 11/30/2023 1 1 Reason Comments Results NIPT Reason Comments Care Reason Comments US Specialty Diagnoses / Procedures Referred By Contac t Referred To Contact [facility] Diagnoses Encounter for screening of mother Procedures OBSTETRIC ULTRASOUND WHI US PREG UTERUS AFTER 1ST TRIMEST 1/[place] [address] [address] [place] [address] [address] [address] Referral ID Status Reason Start Date Expiration Date V isits Requested Visits Authorized [id number] Closed Auto-Generate d Referral 01/25/2023 01/25/2024 1 [...] Care Teams (unrecognized sec tion and content) Progress Man Relationship Specialty Start Date End Date Angela Ray MD [address] [place] [address] PCP - General Internal Medicine/Pediatrics 03/31/22 Progress Man Relationship Specialty Start Date End Date Angela Ray MD [address] [place] [address] PCP - General Internal Medicine/Pediatrics 03/31/22 Progress Man Relationship Specialty Start Date End Date Hellen Paez MD [address] [place] [address] PCP - General Internal Medicine 04/12/22 Progress Man Relationship Specialty Start Date End Date Hellen Paez MD [address] [place] [address] PCP - General Internal Medicine 04/12/22 Progress Man Relationship Specialty [place] [address] [place] [address] PCP - General Internal Medicine 04/12/22 Progress Man Relationship Specialty Start Date End Date Hellen Paez MD [address] [place] [address] PCP - General Internal Medicine 04/12/22 Progress Man Relationship Specialty Start Date End Date Hellen Paez MD [address] [place] [address] PCP - General Internal Medicine 04/12/22 Progress Man Relationship Specialty Start Date End Date Hellen Paez MD [address] [place] [address] PCP - General Internal Medicine 04/12/22 Progress Man Relationship Specialty Start Date End Date Hellen Paez MD [address] [place] [address] PCP - General Internal Medicine 04/12/22 Progress Man Relationship Specialty Start Date End Date Hellen Paez MD [address] [place] [address] PCP - General Internal Medicine 04/12/22 Progress Man Relationship Specialty Start Date End Date Hellen Paez MD [address] [place] [address] PCP - General Internal Medicine 04/12/22 Progress Man Relationship Specialty Start Date End Date Hellen Paez MD [address] [place] [address] PCP - General Internal Medicine 04/12/22 Progress Man Relationship Specialty Start Date End Date Hellen Paez MD [address] [place] [address] PCP - General Internal Medicine 04/12/22 Progress Man Relationship Specialty Start Date End Date Hellen Paez MD [address] [place] [address] PCP - General Internal Medicine 04/12/22 Progress Man Relationship Specialty Start Date End Date Hellen Paez MD [address] [place] [address] PCP - General Internal Medicine 04/12/22 Progress Man Relationship Specialty Start Date End Date Hellen Paez MD [address] [place] [address] PCP - General Internal Medicine 04/12/22 Progress Man Relationship Specialty Start Date End Date Hellen Paez MD [address] [place] [address] PCP - General Internal Medicine 04/12/22 Progress Man Relationship Specialty Start Date End Date Hellen Paez MD [address] [place] [address] PCP - General Internal Medicine 04/12/22 Progress Man Relationship Specialty Start Date End Date Hellen Paez MD [address] [place] [address] PCP - General Internal Medicine 04/12/22 Progress Man Relationship Specialty Start Date End Date Hellen Paez MD [address] [place] [address] PCP - General Internal Medicine 04/12/22 Progress Man Relationship Specialty Start Date End Date Hellen Paez MD [address] [place] [address] PCP - General Internal Medicine 04/12/22 Progress Man Relationship Specialty Start Date End Date Hellen Paez MD [address] [place] [address] PCP - General Internal Medicine 04/12/22 Progress Man Relationship Specialty Start Date End Date Hellen Paez MD [address] [place] [address] PCP - General Internal Medicine 04/12/22 Progress Man Relationship Specialty Start Date End Date Hellen Paez MD [address] [place] [address] PCP - General Internal Medicine 04/12/22 Progress Man Relationship Specialty Start Date End Date Hellen Paez MD [address] [place] [address] PCP - General Internal Medicine 04/12/22 Progress Man Relationship Specialty Start Date End Date Hellen Paez MD [address] [place] [address] PCP - General Internal Medicine 04/12/22 Progress Man Relationship Specialty Start Date End Date Hellen Paez MD [address] [place] [phone] PCP - General Internal Medicine 04/12/22 Progress Man Relationship Specialty Start Date End Date Hellen Paez MD [address] [place], [place] [phone] PCP - General Internal Medicine 04/12/22 Progress Man Relationship Specialty Start Date End Date Hellen Paez MD [address] [place] [phone] PCP - General Internal Medicine 04/12/22 Progress Man Relationship Specialty Start Date End Date Hellen Paez MD [address] [place] [address] PCP - General Internal Medicine 04/12/22 Progress Man Relationship Specialty Start Date End Date Hellen Paez MD [address] [place] [address] PCP - General Internal Medicine 04/12/22 Progress Man Relationship Specialty Start Date End Date Hellen Paez MD [address] [place] [address] PCP - General Internal Medicine 04/12/22 Progress Man Relationship Specialty Start Date End Date Hellen Paez MD [address] [place] [address] PCP - General Internal Medicine 04/12/22 Progress Man Relationship Specialty Start Date End Date Hellen Paez MD [address] [place] [address] PCP - General Internal Medicine 04/12/22 Progress Man Relationship Specialty Start Date End Date Hellen Paez MD [address] [place] [address] PCP - General Internal Medicine 04/12/22 Progress Man Relationship Specialty Start Date End Date Hellen Paez MD [address] [place] [address] PCP - General Internal Medicine 04/12/22 Progress Man Relationship Specialty Start Date End Date Hellen Paez MD [address] [place] [address] PCP - General Internal Medicine 04/12/22 INFORMATION SOURCE (unrecogn ized section and content) DATE CREATED AUTHOR 11/11/2022 [facility] DATE CREATED AUTHOR AUTHOR'S ORGANIZ ATION 07/25/2023 [facility] DATE CREATED AUTHOR AUTHOR'S ORGANIZ ATION 08/23/2023 [facility] DATE CREATED AUTHOR AUTHOR'S ORGANIZ ATION 12/15/2024 [facility] DATE CREATED AUTHOR AUTHOR'S ORGANIZ ATION 03/01/2025 [facility] DATE CREATED AUTHOR AUTHOR'S ORGANIZ ATION 04/30/2025 [facility] FOR RECORDS PERTAINING TO PATIENTS [...] BE BASED ON THE PRIMARY CLINICAL RECORDS. [employer] provides no warranty or guarantee of the accuracy or completeness of information in this document.
== END | disposition home or self-care (01) ==
LOC: BWCLAB 10:31
PROVIDERS: PCP Internal Medicine; Visit Provider Nurse Practitioner Family
DX: E55.9 Vitamin D deficiency, unspecified (principal); R53.83 Other fatigue
CPT/HCPCS: 36415; 82306; 82728; 83540; 83550; 85025

== ENCOUNTER → 2025-05-07 | Outpatient (CLI) | payer MEDICAID, SELFPAY ==
--- NOTE | 2025-05-07 08:37 | RAD_ITS ---
PROCEDURE: ELBOW MIN 3 VIEWS 05/07/2025 REASON FOR EXAM: PAIN TECHNIQUE: ELBOW MIN 3 VIEWS COMPARISON: None. RAD/Elbow min 3 Views IMPRESSION: No left elbow joint effusion is seen. No significant arthritic process or joint narrowing is seen. No fracture, dislocation, or other significant osseous or joint space abnormali ty is seen. Reading Location: [place] [address]
== END | disposition home or self-care (01) ==
PROVIDERS: PCP Internal Medicine; Referring Provider Nurse Practitioner Family; Visit Provider Nurse Practitioner Family
DX: M77.8 Other enthesopathies, not elsewhere classified (principal)
CPT/HCPCS: 73080

== ENCOUNTER → 2025-05-09 | Outpatient (CLI) | payer MEDICAID, SELFPAY ==
--- NOTE | 2025-05-09 11:18 | US_ITS ---
PROCEDURE: TRANSVAGINAL NON- 05/09/2025 REASON FOR EXAM: PELVIC PAIN TECHNIQUE: TRANSVAGINAL NON- COMPARISON: None FINDINGS: LMP: April 26, 2025 Measurements: Uterus: 7.9 cm x 5 cm x 3.4 cm with a volume of 70.93 mL Endometrial Thickness: 8.2 mm. It is trilaminar. Right Ovary: 3.2 cm x 2.5 cm x 1.9 cm with a volume of 8.03 mL. Left Ovary: 2.3 cm x 2.3 cm x 1.4 cm with a volume of 3.92 mL. Uterus: Normal size, myometrial echotexture, and contour. Endometrium: Unremarkable. Right ovary: Normal size and echotexture. Left ovary: Normal size and echotexture. Other: No large pelvic mass identified. US/Transvaginal Non- IMPRESSION: NORMAL TRANSABDOMINAL PELVIC ULTRASOUND. Reading Location: [id number]
--- NOTE | 2025-05-09 11:18 | US_ITS ---
PROCEDURE: TRANSVAGINAL NON- 05/09/2025 REASON FOR EXAM: PELVIC PAIN TECHNIQUE: TRANSVAGINAL NON- COMPARISON: None FINDINGS: LMP: April 26, 2025 Measurements: Uterus: 7.9 cm x 5 cm x 3.4 cm with a volume of 70.93 mL Endometrial Thickness: 8.2 mm. It is trilaminar. Right Ovary: 3.2 cm x 2.5 cm x 1.9 cm with a volume of 8.03 mL. Left Ovary: 2.3 cm x 2.3 cm x 1.4 cm with a volume of 3.92 mL. Uterus: Normal size, myometrial echotexture, and contour. Endometrium: Unremarkable. Right ovary: Normal size and echotexture. Left ovary: Normal size and echotexture. Other: No large pelvic mass identified. US/Transvaginal Non- IMPRESSION: NORMAL TRANSABDOMINAL PELVIC ULTRASOUND. Reading Location: [id number]
== END | disposition home or self-care (01) ==
LOC: US 11:17
PROVIDERS: PCP Internal Medicine; Referring Provider Advanced Practice Midwife; Visit Provider Advanced Practice Midwife
DX: N94.12 Deep dyspareunia (principal)
CPT/HCPCS: 76830

== ENCOUNTER → 2025-05-10 | Outpatient (CLI) | payer MEDICAID, SELFPAY ==
[2025-05-10 09:02] LABS: Hematocrit 43.9 % (37-47); Hemoglobin 14.6 g/dL (12.0-15.0); Immature Granulocytes Count 0.020 X10^3/uL (0.0-0.0); Mean Corp Hgb Conc 33.3 g/dL (32-36); Mean Corpuscular Volume 85.6 fL (81-99); Mean Platelet Vol. 10.8 fl (6.2-12.0); NRBC Flagged by Analyzer 0 % (0-5); POSITIVE DIFFERENTIAL YES; Platelet Count 185 K/mm3 (150-450); RBC Distribution Width CV 12.2 % (11.6-14.6); RBC Distribution Width SD 38.1 fl (35.1-43.9); Red Blood Count 5.13 M/mm3 (4.2-5.4); White Blood Count 9.9 K/mm3 (4.4-11.0)
[2025-05-10 10:08] LABS: AST(SGOT) 17 U/L (<=31); Alanine Aminotransfer ALT/SGPT 11 U/L (<=34); Albumin, Serum 4.3 g/dL (3.5-5.0); Alkaline Phosphatase 95 U/L (35-104); Anion Gap 10 (5-15); BUN 17 mg/dL (4-19); BUN/Creat Ratio 27.2 RATIO (10-20); Calcium,Total 8.7 mg/dL (7.6-11.0); Carbon Dioxide 24.6 mmol/L (21.0-32.0); Chloride 104 mmol/L (98-108); Globulin 2.5 g/dL (2.2-4.2); Glucose 99 mg/dL (70-99); Potassium 4.1 mmol/L (3.3-5.1)
== END | disposition home or self-care (01) ==
LOC: BWCLAB 08:36
PROVIDERS: PCP Internal Medicine; Referring Provider Obstetrics & Gynecology; Visit Provider Obstetrics & Gynecology
DX: Z13.0 Encounter for screening for diseases of the blood and blood-forming organs and certain disorders involving the immune mechanism (principal); R53.83 Other fatigue; F32.A Depression, unspecified; F32.9 Major depressive disorder, single episode, unspecified; F41.1 Generalized anxiety disorder
CPT/HCPCS: 36415; 80053; 82962; 85025

== ENCOUNTER → 2025-05-18 | Outpatient (CLI) | payer MEDICAID, SELFPAY | END | disposition home or self-care (01) | LOC: LABSPEC 11:49 | PROVIDERS: PCP Internal Medicine; Visit Provider Advanced Practice Midwife | DX: N89.8 Other specified noninflammatory disorders of vagina (principal) | CPT/HCPCS: 87070; 87205 ==

== ENCOUNTER → 2025-06-08 | Outpatient (CLI) | payer MEDICAID, SELFPAY ==
--- NOTE | 2025-06-08 12:28 | MRI_ITS ---
PROCEDURE: BRAIN W/WO CONTRAST 06/08/2025 REASON FOR EXAM: HEADACHES TECHNIQUE: Procedure Code: MRIBRWW Modality: MR Procedure: BRAIN W/WO CONTRAST Multiplanar and multisequence images were obtained. CONTRAST: Jenni scan VOLUME: 15 mL FINDINGS: There is no pathologic diffusion to suggest an acute or recent infarction. The craniovertebral junction is unremarkable and there is no suprasellar mass. Orbits are symmetric. Normal brainstem. Normal cerebellum. No abnormal flow voids. No findings that suggest intracranial demyelination. No intra-axial or extra-axial mass or hemorrhage. On coronal T2 weighted images there is no evidence of temporal lobe asymmetry. On postcontrast imaging, no findings of pathologic enhancement are identified. MRI/Brain W/WO Contrast IMPRESSION: Study within normal limits Reading Location[facility]
== END | disposition home or self-care (01) ==
LOC: MRI 12:19
PROVIDERS: PCP Internal Medicine; Referring Provider Physician Assistant; Visit Provider Physician Assistant
DX: R51.9 Headache, unspecified (principal)
CPT/HCPCS: 70553; A9575

== ENCOUNTER → 2025-06-19 | Outpatient (CLI) | payer MEDICAID, SELFPAY ==
[2025-06-19 11:56] LABS: hCG Titer Quant., Serum 556 mIU/mL (<9 non-preg)
== END | disposition home or self-care (01) ==
LOC: BWCLAB 10:31
PROVIDERS: PCP Internal Medicine; Referring Provider Advanced Practice Midwife; Visit Provider Advanced Practice Midwife
DX: N91.2 Amenorrhea, unspecified (principal)
CPT/HCPCS: 36415; 84702

== ENCOUNTER → 2025-06-19 | Outpatient (CLI) | payer MEDICAID, SELFPAY ==
--- NOTE | 2025-06-19 12:33 | US_ITS ---
PROCEDURE: BREAST LIMITED UNILATERAL 06/19/2025 REASON FOR EXAM: F, Age 24 y/o , LEFT BREAST LUMP COMPARISON: None. TECHNIQUE: Procedure Code: USBRSTLIMIT Modality: US Procedure: BREAST LIMITED UNILATERAL. The upper portion of the left breast was examined with ultrasound. FINDINGS: The palpable lump corresponds to a 5 mm x 8 mm x 4 mm hypoechoic solid nodule at the 2 o'clock position of the breast at 5 cm from the nipple. This most likely represents a fibroadenoma although biopsy recommended. US/Breast Limited Unilateral IMPRESSION: 5 mm x 8 mm x 4 mm hypoechoic solid nodule at the 2 o'clock position of the ray ast at 5 cm from the nipple. Biopsy recommended. BI-RADS 4: SUSPICIOUS RECOMMENDATION: Biopsy Recommended Reading Location: [place] [address]
== END | disposition home or self-care (01) ==
PROVIDERS: PCP Internal Medicine; Referring Provider Nurse Practitioner Family; Visit Provider Nurse Practitioner Family
DX: N63.0 Unspecified lump in unspecified breast (principal); N91.2 Amenorrhea, unspecified
CPT/HCPCS: 36415; 76642; 84702

== ENCOUNTER → 2025-06-21 | Outpatient (CLI) | payer MEDICAID, SELFPAY ==
[2025-06-21 09:47] LABS: hCG Titer Quant., Serum 1203 mIU/mL (<9 non-preg)
== END | disposition home or self-care (01) ==
LOC: BWCLAB 08:21
PROVIDERS: PCP Internal Medicine; Referring Provider Advanced Practice Midwife; Visit Provider Advanced Practice Midwife
DX: N91.2 Amenorrhea, unspecified (principal)
CPT/HCPCS: 36415; 84702

== ENCOUNTER → 2025-06-26 | Outpatient (CLI) | payer MEDICAID, SELFPAY ==
--- NOTE | 2025-06-26 14:56 | US_ITS ---
PROCEDURE: INIT OB < 14WKS US 06/26/2025 REASON FOR EXAM: DATING TECHNIQUE: Procedure Code: USOBIFT Modality: US Procedure: INIT OB < 14WKS US COMPARISON: None. FINDINGS Number: 1 ESTIMATED WEIGHT: ESTIMATED WEIGHT PERCENTILE (24+ weeks): ESTIMATED GESTATIONAL AGE: By Ultrasound: 5 weeks and 5 days. BIOPHYSICAL ASSESSMENT: No heart rate is detected. MATERNAL ANATOMY: Adnexa: The right ovary measures 3 x 2.7 x 2.3 cm. The left ovary measures 2.6 x 2.4 x 0.9 cm. The ovaries are unremarkable in echotexture and vascularity. A 1.4 x 1.6 x 1 cm complex cyst may represent corpus luteum cyst in the right ovary. Cervical Length (if measured): Unremarkable. Closed. The uterus measures 8.5 cm in length. ANATOMY: Yolk sac measures 2 mm. No pole is seen which can be due to early . US/Init OB < 14Wks US IMPRESSION: Intraperitoneal gestational sac is seen corresponds to age of 5 weeks and 5 day s. No evident complications. No pole or heart rate can not detected which can be due to early pregnanc y. Continued follow-up with ultrasound is recommended. Reading Location: [id number]
== END | disposition home or self-care (01) ==
LOC: US 14:54
PROVIDERS: PCP Internal Medicine; Referring Provider Advanced Practice Midwife; Visit Provider Advanced Practice Midwife
DX: N91.2 Amenorrhea, unspecified (principal)
CPT/HCPCS: 76801

== ENCOUNTER → 2025-06-27 | Outpatient (CLI) | payer MEDICAID, SELFPAY ==
[2025-06-27 13:17] LABS: hCG Titer Quant., Serum 12157 mIU/mL (<9 non-preg)
== END | disposition home or self-care (01) ==
LOC: BWCLAB 09:48
PROVIDERS: PCP Internal Medicine; Visit Provider Obstetrics & Gynecology
DX: Z87.59 Personal history of other complications of pregnancy, childbirth and the puerperium (principal)
CPT/HCPCS: 36415; 84702

== ENCOUNTER → 2025-06-29 | Outpatient (CLI) | payer MEDICAID, SELFPAY ==
[2025-06-29 11:18] LABS: hCG Titer Quant., Serum 20909 mIU/mL (<9 non-preg)
== END | disposition home or self-care (01) ==
LOC: BWCLAB 08:17
PROVIDERS: Obstetrics & Gynecology; PCP Internal Medicine; Visit Provider Advanced Practice Midwife
DX: Z87.59 Personal history of other complications of pregnancy, childbirth and the puerperium (principal)
CPT/HCPCS: 36415; 84702

== ENCOUNTER → 2025-07-16 | Outpatient (CLI) | payer MEDICAID, SELFPAY ==
[2025-07-19 08:08] LABS: Chlamydia By Nucleic Acid AMP Negative (Negative); Gonococcus By Nucleic Acid AMP Negative (Negative)
== END | disposition home or self-care (01) ==
LOC: LABSPEC 16:20
PROVIDERS: PCP Internal Medicine; Visit Provider Obstetrics & Gynecology
DX: O09.90 Supervision of high risk pregnancy, unspecified, unspecified trimester (principal); Z3A.00 Weeks of gestation of pregnancy not specified
CPT/HCPCS: 87086; 87088; 87491; 87591

== ENCOUNTER → 2025-07-20 | Outpatient (CLI) | payer MEDICAID, SELFPAY ==
--- NOTE | 2025-07-20 | BRBX_PTH ---
PATIENT: NATA QUEZADA LOC: [facility] U#:[id number] AGE/SX: 24/F ROOM: RE07/20/[address]: Dr. Jesus Hood MD : 2000 BED: DIS: 07/20/2025 SPEC #: [id number] RECD: 07/20/25 13:42 STATUS: GT REGael #: [id number] TOMMIE: 07/20/25 00:[address]: Jesus Hood DEPT: SURGICAL PATHOLOGY RECD BY: Jos Kelly ENTERED: 07/20/25 14:54 SP TYPE: BREAST BX OTHR DR: Dr. Matilde Castillo MD Tissues: A - Left breast, NOS Procedures: Surgery Specimen Level IV HEADER OPERATION: Ultrasound guided left breast biopsy PRE-OP DIAGNOSIS: Left breast nodule, 2o'clock, +5 TISSUE SUBMITTED: A- Left breast biopsy MICROSCOPIC DIAGNOSIS A. Left breast, 2 o'clock, ultrasound-guided core biopsy: * Benign breast tissue demonstrating adenosis in a fibrotic stroma. MICROSCOPIC DESCRIPTION Slides are reviewed. GROSS DESCRIPTION A. Received in formalin labeled with the patient's name and date of . Designated as L breast is a 2.7 x 1.6 x 0.2 cm aggregate of aguila-pink tissue core fragments and clotted blood. Entirely submitted in 1 cassette. Cold ischemic time: <1-minuteFormalin fixation time: 54 hours, 10 minutes Note: Times are calculated using the presumed time written on the specimen container (1320) as the specimen requisition does not have a collection time listed (SC). SC 07/20/2025 CPT:20047
--- NOTE | 2025-07-20 | BRBX_PTH ---
PATIENT: NATA QUEZADA LOC: [facility] U#:[id number] AGE/SX: 24/F ROOM: RE07/20/[address]: Dr. Jesus Hood MD : 2000 BED: DIS: 07/20/2025 SPEC #: [id number] RECD: 07/20/25 13:42 STATUS: GT REGael #: [id number] TOMMIE: 07/20/25 00:[address]: Jesus Hood DEPT: SURGICAL PATHOLOGY RECD BY: Jos Kelly ENTERED: 07/20/25 14:54 SP TYPE: BREAST BX OTHR DR: Dr. Matilde Castillo MD Tissues: A - Left breast, NOS Procedures: Surgery Specimen Level IV HEADER OPERATION: Ultrasound guided left breast biopsy PRE-OP DIAGNOSIS: Left breast nodule, 2o'clock, +5 TISSUE SUBMITTED: A- Left breast biopsy MICROSCOPIC DIAGNOSIS A. Left breast, 2 o'clock, ultrasound-guided core biopsy: * Benign breast tissue demonstrating adenosis in a fibrotic stroma. MICROSCOPIC DESCRIPTION Slides are reviewed. GROSS DESCRIPTION A. Received in formalin labeled with the patient's name and date of . Designated as L breast is a 2.7 x 1.6 x 0.2 cm aggregate of aguila-pink tissue core fragments and clotted blood. Entirely submitted in 1 cassette. Cold ischemic time: <1-minuteFormalin fixation time: 54 hours, 10 minutes Note: Times are calculated using the presumed time written on the specimen container (1320) as the specimen requisition does not have a collection time listed (SC). SC 07/20/2025 CPT:82218
--- NOTE | 2025-07-20 12:07 | US_ITS ---
PROCEDURE: US BREAST BIOPSY 1ST LESION 07/20/2025 REASON FOR EXAM: F, Age 24 y/o , LEFT BREAST MASS Ultrasound-guided breast biopsy. TECHNIQUE: Procedure Code: [id number] Modality: US Procedure: US BREAST BIOPSY 1ST LESION COMPARISON: Prior exam(s) dating back to June 19, 2025.. FINDINGS: ULTRASOUND: Ultrasound was targeted to the 2 o'clock position of the left breast. Under direct sonographic guidance, the surgeon performed core biopsies of a hypoechoic nodule at the 2 o'clock position of the breast at 5 cm from the nipple. The nodule measures 5 mm x 6 mm x 3 mm. US/US Breast Biopsy 1st Lesion IMPRESSION: OVERALL FINAL ASSESSMENT: BIRADS 11 WAITING PATHOLOGY RECOMMENDATION: Routine annual follow-up in 1 Year Reading Location: [place] [id number]
--- NOTE | 2025-07-20 12:07 | US_ITS ---
PROCEDURE: US BREAST BIOPSY 1ST LESION 07/20/2025 REASON FOR EXAM: F, Age 24 y/o , LEFT BREAST MASS Ultrasound-guided breast biopsy. TECHNIQUE: Procedure Code: [id number] Modality: US Procedure: US BREAST BIOPSY 1ST LESION COMPARISON: Prior exam(s) dating back to June 19, 2025.. FINDINGS: ULTRASOUND: Ultrasound was targeted to the 2 o'clock position of the left breast. Under direct sonographic guidance, the surgeon performed core biopsies of a hypoechoic nodule at the 2 o'clock position of the breast at 5 cm from the nipple. The nodule measures 5 mm x 6 mm x 3 mm. US/US Breast Biopsy 1st Lesion IMPRESSION: OVERALL FINAL ASSESSMENT: BIRADS 11 WAITING PATHOLOGY RECOMMENDATION: Routine annual follow-up in 1 Year Reading Location: [place] [id number]
--- OUTSIDE RECORDS SUMMARY | 2025-07-20 12:26 | XMS RPT_ITS | CCD ---
Author Organization [facility] Care Team Providers Care Sports Journalist Name Role Phone Unavailable Primary Care Provider Unavailalfredo Ray MD, [facility] Primary Care Provider Nallely ÁLVAREZ, [...] Unavailable LINDA MÁRQUEZ Attending Unavailable Rosie Stinson Referring Unavailable Oleghe, Efewongbe Primary Care Unavailable Rosie Stinson Attending Unavailable Oleghe, Efewongbe Primary Care Unavailable Maegan Hernandez Referring Unavailalfredo e Maegan Hernandez Attending Unavailabl e Oleghe, Efewongbe Primary Care Unavailable Ramirez Lerma Attending Unavailable Ramirez Lerma Referring Unavailable Rosie Stinson Attending Unavailable Oleghe, Efewongbe Primary Care Unavailable Oleghe, Efewongbe Referring Unavailable Sharmin Hernandez Referring Unavailable Sharmin Hernandez Attending Unavailable Oleghe, Efewongbe Primary Care Unavailable Sharmin Hernandez Attending Unavailable Rosie Stinson Referring Unavailable Rosie Stinson Attending Unavailable Rosie Stinson Attending Unavailable Rosie Stinson Referring Unavailable Oleghe, Efewongbe Primary Care Unavailable Oleghe, Efewongbe Primary Care Unavailable Maegan Hernandez Attending Unavailabl e Sharmin Hernandez Referring Unavailable Sharmin Hernandez Attending Unavailable Rosie Stinson Attending Unavailable Rosie Stinson Referring Unavailable Oleghe, Efewongbe Primary Care Unavailable Sharmin Hernandez Referring Unavailable Sharmin Hernandez Attending Unavailable Rosie Stinson Referring Unavailable Rosie Stinson Attending Unavailable Elizabeth Dang Referring Unavailable Elizabeth Dang Attending Unavailable Oleghe, Efewongbe Primary Care Unavailable Sharmin Hernandez Attending Unavailable Oleghe, Efewongbe Primary Care Unavailable Rosie Stinson Referring Unavailable Rosie Stinson Attending Unavailable Elizabeth Dang Attending Unavailable Elizabeth Dang Referring Unavailable Oleghe, Efewongbe Primary Care Unavailable Oleghe, Efewongbe Primary Care Unavailable Rosie Stinson Attending Unavailable Oleghe, Efewongbe Primary Care Unavailable Maegan Hernandez Attending Unavailabl e Oleghe, Efewongbe Referring Unavailable BarkSharmin low Referring Unavailable BarkSharmin low Attending Unavailable Oleghe, Efewongbe Attending Unavailable Jesus Chong Attending Unavailable Oleghe, Efewongbe Primary Care Unavailable Rosie Stinson Attending Unavailable DosVani fong Attending Unavailable DosVani fong Attending Unavailable DosVani fong Attending Unavailable DosVani fong Attending Unavailable Care Physician, No Primary Referring Unava ilable DossiVani Attending Unavailable DosVani fong Attending Unavailable Rosie Stinson Attending Unavailable Care Physician, No Primary Referring Unava ilable eJsus Chong Attending Unavailable Jesus Chong Attending Unavailable BarkmanSharmin Attending Unavailable Oleghe, Efewongbe Primary Care Unavailable Oleghe, Efewongbe Referring Unavailable Oleghe, Efewongbe Primary Care Unavailable Jesus Dickey Attending Unavailable DosVani fong Attending Unavailable DosVani fong Referring Unavailable DosVani fong Attending Unavailable Oleghe, Efewongbe Primary Care Unavailable Jesus Hood Attending Unavailable Oleghe, Efewongbe Referring Unavailable Oleghe, Efewongbe Primary Care Unavailable Ricardo Ordoñez Attending Unavailable Oleghe, Efewongbe Referring Unavailable Oleghe, Efewongbe Primary Care Unavailable Oleghe, Efewongbe Referring Unavailable Ramirez Lerma Attending Unavailable Jesus Dickey Attending Unavailable Oleghe, Efewongbe Primary Care Unavailable Oleghe, Efewongbe Primary Care Unavailable Oleghe, Efewongbe Referring Unavailable Rosie Stinson Attending Unavailable Rosie Stinson Attending Unavailable Tonya Sethi Attending Unavailable Oleghe, Efewongbe Referring Unavailable Oleghe, Efewongbe Primary Care Unavailable Jesus Dickey Attending Unavailable Oleghe, Efewongbe Primary Care Unavailable Oleghe, Efewongbe Primary Care Unavailable Jesus Britt Attending Unavailable Vani Cm Attending Unavailable Rosie Stinson Attending Unavailable Rosie Stinson Referring Unavailable Oleghe, Efewongbe Primary Care Unavailable Oleghe, Efewongbe Primary Care Unavailable Rosie Stinson Attending Unavailable Rosie Stinson Attending Unavailable Oleghe, Efewongbe Primary Care Unavailable Oleghe, Efewongbe Primary Care Unavailable Maegan Hernandez Attending Unavailabl e Oleghe, Efewongbe Primary Care Unavailable Rosie Stinson Referring Unavailable Rosie Stinson Attending Unavailable Tonya Sethi Referring Unavailable Oleghe, Efewongbe Primary Care Unavailable Tonya Sethi Attending Unavailable Rosie Stinson Attending Unavailable Oleghe, Efewongbe Primary Care Unavailable Oleghe, Efewongbe Primary Care Unavailable Rosie Stinson Referring Unavailable Rosie Stinson Attending Unavailable Allergies Allergy Classification Reported Allergen(s) Allergy Type Date of Onset Reaction(s) Facility (1 source) Sertraline Drug Allergy 07-16-2025 [facility] Repository Medications Current Medications Medication Drug Class(es) Dates Sig (Normalized) Sig (Original) azelastine hydrochloride 0.137 mg/actuat metered dose nasal spray (2 sources) Histamine-1 Receptor Antagonist Start: 04-14-2022 End: 05-21-2022 take 1 spray(s) nasal route twice daily azelastine (ASTELIN, ASTEPRO) 0.1% nasal spray Use 1 Petal in each nostril twice daily. 30 mL 2 04/14/2022 05/21/2022 Active Comment on above: Use 1 Petal in each nostril twice daily. cephalexin 500 [...] capsule (1 source) Tetracycline-class Drug Start: 01-24-20 End: 02-03-20 take 1 capsule by mouth twice daily doxycycline monohydrate (MONODOX) 100 mg capsule Take 1 capsule by mouth two times a day for 10 days. 20 capsule 0 01/24/2024 02/03/2024 Active metroNIDAZOLE 500 mg oral tablet (3 sources) Nitroimidazole Antimicrobial Start: 01-06-20 End: 01-13-20 take 1 tablet by mouth every twelve [...] on above: Take 1 Lozenge by mo [facility] every 3 hours as needed. Blood Pressure [...] on above: Take 1 tablet by gideon once daily. cetirizine hydrochloride 10 mg oral [...] tablet by mouth once daily Desogestrel-Ethinyl Estradiol (RECXOCHITLEN, 28,) 0.15-0.03 mg per tablet Indications: Encounter [...] on above: Take 1 tablet by gideon daily at bedtime. fluconazole 150 mg oral tablet (2 sources) Azole Antifungal Start: 10-02-20 End: 10-03-20 take 1 tablet by mouth once daily fluconazole (DIFLUCAN) 150 mg tablet Take 1 tablet by mouth once daily for 1 day. 1 tablet 0 10/02/2022 10/03/2022 Comment on above: Take 1 tablet by gideon once daily for 1 day. fluticasone propionate [...] anxiety/panic attacks Take 1 capsule by mo [facility] once daily as needed. ibuprofen 600 mg [...] on above: Take 1 capsule by mo ut daily with breakfast. ondansetron 8 mg disintegrating [...] above: Take 2 tablets by mo ut three times daily as needed. HSR147-ymub-RL-f0-wrk-v pa-fish 27 mg iron-800 mcg-260 mg (11 sources) Start: 12-01-19 take 1 capsule by mouth once daily MUR763-zlum-KI-j6-lop- epa-fish 27 mg iron-800 mcg-260 mg Take [...] sodium chloride 0.65 % drop Use 1 Petal in the nose. 0 05/21/2020 07/17/2022 Discontinued (Course of therapy completed) Comment on above: Use 1 Petal in the n ose. ulipristal acetate 30 [...] tablet (7 sources) gamma-Aminobutyric Acid-ergic Agonist Start: 2 End: 3 take 1 tablet [...] Problem Date Documented Date Episodic/Chronic Anxiety disorders (3 sources) Posttraumatic stress disorder; Translations: [Post-traumatic stress disorder, unspecified] Onset: 07-16-2025 Chronic Complication of device; implant or graft (1 source) Migration of intrauterine contraceptive device; Translations: [Displacement of intrauterine contraceptive device, initial encounter] Episodic E Codes: Adverse effects of medical drugs (1 source) Adverse effect of unspecified drugs, medicaments and biological substances, initial encounter; Translations: [Adverse effect of unspecified drugs, medicaments and biological substances, initial encounter] Onset: 07-16-2025 Episodic Genitourinary symptoms and ill-defined conditions (9 sources) Leukocytes in urine; Translations: [Other abnormal findings in urine] Onset: 07-16-2025 Episodic Headache; including migraine (1 source) Headache; including migraine; Translations: [Headache, unspecified] Onset: 07-16-2025 Hemorrhage during ; abruptio placenta; placenta previa (1 source) Antepartum hemorrhage, unspecified, unspecified trimester; Translations: [Antepartum hemorrhage, unspecified, unspecified trimester] Onset: 05-25-2025 Episodic Immunizations and screening for infectious disease (2 sources) Suspected disease caused by 2019-nCoV; Translations: [Suspected COVID-19 virus infection] 05-19-2023 Episodic Malaise and fatigue (1 source) Other fatigue; Translations: [Other fatigue] Onset: 07-16-2025 Episodic Menstrual disorders (1 source) Amenorrhea, unspecified; Translations: [Amenorrhea, unspecified] Onset: 07-16-2025 Chronic Miscellaneous mental health disorders (2 sources) Primary insomnia; Translations: [Primary insomnia] Chronic Mood disorders (20 sources) Cyclothymia; 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] Onset: 07-17-2022 Chronic Mood disorders (1 source) Mood disorders; Translations: [Depression, unspecified] Onset: 07-16-2025 Mycoses (1 source) Candidiasis of vagina; Translations: [Candidal vaginitis] Episodic Nonmalignant breast conditions (3 sources) Unspecified lump in the left breast, unspecified quadrant; Translations: [Unspecified lump in unspecified breast] Onset: 07-03-2025 Episodic Nutritional deficiencies (20 sources) Undernutrition; Translations: [Mild protein-calorie malnutrition] Onset: 04-12-2022 Resolved: 01-24-2024 04-12-2022 Chronic Other bone disease and musculoskeletal deformities (1 source) Other idiopathic scoliosis, thoracolumbar region; Translations: [Other idiopathic scoliosis, thoracolumbar region] Onset: 07-16-2025 Chronic Other bone disease and musculoskeletal deformities (1 source) Segmental and somatic dysfunction of pelvic region; Translations: [Segmental and somatic dysfunction of pelvic region] Onset: 07-16-2025 Episodic Other bone disease and musculoskeletal deformities (1 source) Segmental and somatic dysfunction of thoracic region; Translations: [Segmental and somatic dysfunction of thoracic region] Onset: 07-16-2025 Episodic Other bone disease and musculoskeletal deformities (1 source) Segmental and somatic dysfunction of lumbar region; Translations: [Segmental and somatic dysfunction of lumbar region] Onset: 07-16-2025 Episodic Other bone disease and musculoskeletal deformities (1 source) Segmental and somatic dysfunction of cervical region; Translations: [Segmental and somatic dysfunction of cervical region] Onset: 07-16-2025 Episodic Other complications of (2 sources) Supervision of high risk , unspecified, unspecified trimester; Translations: [Supervision of high risk , unspecified, unspecified trimester] Onset: 07-16-2025 Episodic Other connective tissue disease (1 source) Other enthesopathies, not elsewhere classified; Translations: [Other enthesopathies, not elsewhere classified] Onset: 07-16-2025 Episodic Other female genital disorders (1 source) Abnormal uterine bleeding; Translations: [Abnormal uterine and vaginal bleeding, unspecified] 01-24-2024 Chronic Other female genital disorders (1 source) Deep dyspareunia; Translations: [Deep dyspareunia] Onset: 07-16-2025 Chronic Other female genital disorders (2 sources) Vaginal discharge; Translations: [Other specified noninflammatory disorders of vagina] Episodic Other female genital disorders (1 source) Vaginal odor; Translations: [Other specified noninflammatory disorders of vagina] Episodic Other female genital disorders (2 sources) Other specified noninflammatory disorders of vagina; Translations: [Other specified noninflammatory disorders of vagina] Onset: 05-23-2025 Episodic Other nervous system disorders (1 source) Other chronic pain; Translations: [Other chronic pain] Onset: 07-16-2025 Chronic Other non-traumatic joint disorders (1 source) Pain in left wrist; Translations: [Pain in left wrist] Onset: 06-18-2025 Episodic Other nutritional; endocrine; and metabolic disorders (1 source) Decrease in appetite; Translations: [Anorexia] Episodic Other screening for suspected conditions (not mental disorders or infectious disease) (6 sources) Possible ; Translations: [Encounter for test, result unknown] Onset: 01-25-2023 Episodic Other upper respiratory disease (1 source) [...] [34 weeks gestation of ] 06-26-2023 Episodic Residual codes; unclassified (1 source) Personal history of other complications of , childbirth and the puerperium; Translations: [Personal history of other complications of , childbirth and the puerperium] Onset: 07-16-2025 Episodic Residual codes; unclassified (1 source) Family history of other congenital malformations, deformations and chromosomal abnormalities; Translations: [Family history of other congenital malformations, deformations and chromosomal abnormalities] Onset: 07-16-2025 Episodic Residual codes; unclassified (1 source) 8 weeks gestation of ; Translations: [8 weeks gestation of ] Onset: 07-16-2025 Episodic Screening and history of mental health [...] [Complete or unspecified spontaneous without complication] Onset: 05-22-2025 Episodic Unclassified (1 source) Low back pain, unspecified; Translations: [Low back pain, unspecified] Onset: 07-16-2025 Urinary tract infections (1 source) Acute cystitis; Translations: [Acute cystitis with hematuria] 11-23-2023 Episodic Past or Other Problems Problem Classification Problem Date Documented Date Episodic/Chronic Abdominal pain (3 sources) Pain in female pelvis; Translations: [Pelvic and perineal pain] Onset: 07-11-2024 01-24-2024 Episodic Contraceptive and procreative management (20 sources) Patient encounter status; Translations: [Encounter for initial prescription of contraceptive pills] Onset: 07-27-2023 Resolved: 01-24-2024 Episodic Digestive congenital anomalies (20 sources) Congenital velopharyngeal incompetence; Translations: [Other congenital malformations of pharynx] Onset: 11-29-2012 Resolved: 07-27-2023 Chronic Disorders of teeth and jaw (20 sources) Congenital maxillary hypoplasia; Translations: [Maxillary hypoplasia] Onset: 05-17-2020 Resolved: 07-27-2023 Episodic Hypertension complicating ; childbirth and the puerperium (12 sources) Elevated blood pressure; Translations: [Unspecified maternal hypertension, third trimester] Onset: 07-26-2023 Resolved: 01-24-2024 06-25-2023 Chronic Hypertension complicating ; childbirth and the puerperium (20 sources) -induced hypertension; Translations: [Gestational [-induced] hypertension without significant proteinuria, unspecified trimester] Onset: 07-26-2023 Resolved: 01-24-2024 07-27-2023 Episodic Other congenital anomalies (20 sources) Cleft palate; Translations: [Cleft palate, unspecified] Onset: 11-29-2012 Resolved: 07-27-2023 Chronic Other ear and sense organ disorders (20 sources) Surgical follow-up; Translations: [Myringotomy tube(s) status] Onset: 05-17-2020 Resolved: 07-27-2023 03-31-2022 Chronic Other and delivery including normal (13 sources) - urine test confirms ; Translations: [Encounter for test, result positive] Onset: 07-23-2023 Episodic Residual codes; unclassified (5 sources) Gestation period, 38 weeks; Translations: [38 weeks gestation of ] Onset: 07-26-2023 Resolved: 07-29-2023 07-26-2023 Episodic Residual codes; unclassified (1 source) Other specified postprocedural states; Translations: [Other specified postprocedural states] Onset: 09-15-2024 Episodic Syncope (20 sources) Vasovagal syncope; Translations: [Syncope and collapse] Onset: 04-11-2022 Resolved: 07-27-2023 Episodic Results Test Name Value Interpretation Reference Range Facil ity Chlamydia/GC TESS aptimaon CHLAMY,NUC ACID Negative Normal Negative [facility] Comment on above: Performed By: #### M 100.2200, L7000.1800 ####[facility] [id number] [place], [place], [address] GC BY NUC ACID Negative Normal Negative [facility] Comment on above: Result Comment: Perf ormed at: =G - [facility] [address] [id number] Kennel Manager Dog Track: Sylvie yDkes MD, Phone: [phone] Performed By: #### M 100.2200, L7000.1800 ####[facility] [id number] [place], [place], [id number] Urine Cultureon 07-18-2025 URC Below infection leve l. Mixed Gram Positive Organisms [place] Count 1000-10,000 MIXC Mixed contaminants. Submit a new specimen if indicated. Normal [facility] Comment on above: Performed By: #### M 100.2200, L7000.1800 ####[facility] [id number] [place], [place], [address] Ornamental Metalwork Designer Office Visit Reporton 07-16-2025 Ornamental Metalwork Designer Office Visit Report [facility] [address], [address] [place] [address] OFFICE VISIT Date of Service: 07/16/25 MR#: [id number] Acct: [id number] Name: DAINA QUEZADASA LESTER Rep #: [id number] : 2000 Provider: CHONG Oneill ams Age/Sex: 24/F Location: [facility] [place] Status: Signed Intake Vital Signs 06/18/25 08:34 06/26/25 14:17 07/16/25 12:55 Height 5 ft 4 in 5 ft 4 in 5 ft 5 in Weight: 174 lb 2 oz BMI 29.0 BP 143/80 H Intake Visit Reasons: NOB LMP 04/26 Chief Complaint: New OB Batch Trucker Required: No Is patient in pain?: No Allergies sertraline Adverse Reaction (Severe, Verified 07/16/25 12:53) syncopal episode Medications ???Medication ???Instructions ???Recorded ???Confirmed ???Type bupropion HCl 150 mg 24 hr tablet, 150 mg PO QAM #30 tabs 06/13/25 07/16/25 Rx extended release (Wellbutrin XL) escitalopram oxalate 5 mg tablet 5 mg PO QDAY #30 tabs 06/13/25 Rx ondansetron 4 mg disintegrating 4 mg PO Q6H PRN nausea and 07/16/25 Rx tablet vomiting #30 tabs multivitamin no.47-iron fum 27 cap PO 07/03/25 07/16/25 History mg-folate no.1 1 mg-dha 300 mg capsule (PNV-DHA) prochlorperazine maleate 5 mg 5 mg PO TID PRN nausea and 5 07/16/25 Rx tablet (Compazine) vomiting #30 tabs Last Menstrual Period: 05/23/25 : Yes Have you fallen in the past year?: No PFSH PFSH Medical History Hypotension Medication reaction Chronic headaches Generalized anxiety disorder MDD (major depressive disorder) Brain fog Anxiety and depression Encounter to establish care Vitamin D deficiency History of frequent headaches Gestational hypertension Segmental dysfunction of lumbar region Segmental dysfunction of cervical region Migraines Surgical History H/O adenoidectomy History of repair of congenital cleft palate History of tonsillectomy History of surgical procedure on maxillary sinus History of tympanoplasty Family History Father Age: 45 Arthritis Hypertension Mother Age: 42 Anxiety Depression Alcoholism Aunt Age: 35 Psoriatic arthritis POTS (postural orthostatic tachycardia syndrome) Uncle Age: 56 CVA (cerebral vascular accident) Grandmother Blood clot in vein CVA (cerebral vascular accident) Grandfather Lung cancer Heart failure Social History adopted: No household members: spouse and children housing: house number of children: 1 current occupational status: employed current occupation: [employer] current occupational exposures/hazards: No pets and animals: No history of recent travel: No sexually active: Yes Smoking Status: Never smoker alcohol intake: never substance use type: does not use well-balanced diet: daily or most days caffeine: Yes (1) Type: coffee Number of servings: 1 eating out: rarely or never during the past year weight has: remained stable what type of physical activity do you participate in: none frequency: does not exercise kavon/mandaeism: Religious seatbelt use: always do you feel safe at home: Yes additional social history: Spouse - Damion History 4 Elective abortions Hx Para 1 Spontaneous abortions 2 Hx # Term Pregnancies 1 Ectopic pregnancies Hx # Pregnancies Multiple births # of living children 1 Past Pregnancies Del. Date Name GA/Weeks Outcome Route Bth Weight Infant Gen Labor Lgth Anesthesia Del Locatn Provider FOB 07/28/23 Oseas 38 live - full term 6lb 1oz Male 24hr epidural [place] Yodit Fuchs Dam[place] Delivery Date: 07/28/23 Last Updated by: Stephanie Bahena GHTN, IOL HPI NOB LMP 04/26 Details: NATA QUEZADA is a 24 year old who presents for New OB visit. OB Visit EVAN Calculator Estimated Delivery Date Method Current WG Current Estimate 02/21/26 Ultrasound #1 8w 4d Other Estimates 02/27/26 LMP (Certain) 7w 5d Estimated Due Date: 02/21/26 Expected Delivery Route/Plan Labor Preferences- CB/BF classes: [] labor support person: [] labor intervention preferences: [] pain management options preferred: [] cut cord/dad catch: [] : [] PP control planned: [] discussed possible routes of delivery and associated risks: [] special requests: [] Specific Issue/Plans Covid status: [] Flu vaccine: [] Tdap vaccine: [] Rhogam: [] LARC form signed: [] Problem list reviewed and updated with the most current plan of care details and appropriate orders placed. Relevant counseling for the gestational age provided. Continue routine care and follow up unless (more content not included)... Normal [facility] Office Visit Reporton 2024 Office Visit Report [facility] [address] [place] [address] OFFICE VISIT Date of Service: 07/03/25 MR#: [id number] Acct: [id number] Patient: NATA QUEZADA Rep #: [id number] : 2000 Provider: Dr. Maegan Leon DO Age/Sex: 24/F Location: [facility] Status: Signed Intake Vital Signs 06/26/25 14:17 07/03/25 08:48 Height 5 ft 4 in 5 ft 5 in Weight: 177 lb 171 lb 5 oz BMI 30.4 28.5 BP 140/87 H 118/62 Blood Pressure Location Lt brachial Lt brachial Position Sitting Sitting Respiration 17 Pulse 107 H Pulse Source Monitor Pulse Oximetry (%) 97 Oxygen Delivery Method room air Intake Visit Reasons: PNOB Vitals Education Batch Trucker Required: No Is patient in pain?: No Allergies sertraline Adverse Reaction (Severe, Verified 07/03/25 08:49) syncopal episode Medications ???Medication ???Instructions ???Recorded ???Confirmed ???Type bupropion HCl 150 mg 24 hr tablet, 150 mg PO QAM #30 tabs 06/13/25 07/03/25 Rx extended release (Wellbutrin XL) escitalopram oxalate 5 mg tablet 5 mg PO QDAY #30 tabs 06/13/25 Rx ondansetron 4 mg disintegrating 4 mg PO Q6H PRN nausea and 5 07/03/25 Rx tablet vomiting #30 tabs multivitamin no.47-iron fum 27 cap PO 07/03/25 07/03/25 History mg-folate no.1 1 mg-dha 300 mg capsule (PNV-DHA) prochlorperazine maleate 5 mg 5 mg PO TID PRN nausea and 5 Rx tablet (Compazine) vomiting #30 tabs Is last menstrual period known: Yes Last menstrual period: 05/23/25 Post menopausal: No Patient : Yes Nurse's Note: Pt here for secondary amenorrhea. Vitals WNL. PNOB questions completed. Problem list, allergies, and medications updated. First trimester ACOG education completed. Assessment and Plan Assessment and Plan Orders: Orders CBC W/Diff, Automated 07/03/25 O - Supervision of high risk , unspecified, unspecified trimester Type Screen 07/03/25 - Supervision of high risk , unspecified, unspecified trimester Rubella IgG 07/03/25 O. - Supervision of high risk , unspecified, unspecified trimester Hepatitis C Antibody 07/03/25. - Supervision of high risk , unspecified, unspecified trimester Hepatitis B Surface Antigen 07/03/25 - Supervision of high risk , unspecified, unspecified trimester Culture, Urine 07/03/25 - Supervision of high risk , unspecified, unspecified trimester Syphilis Antibodies 07/03/25 O. - Supervision of high risk , unspecified, unspecified trimester Chlamydia/GC TESS aptima 07/03/25 O. - Supervision of high risk , unspecified, unspecified trimester HIV 07/03/25 O. - Supervision of high risk , unspecified, unspecified trimester PHI 07/03/25 O. - Supervision of high risk , unspecified, unspecified trimester 07/12/25 211 Date [facility] Signature: Date (if applicable) CC: Normal [facility] hCG Titer Quant., Serumon HCG QUANT. 82644 mIU/mL High <9 non-preg [facility] Comment on above: Result Comment: Gest ational Age 0.2-1 Week: 5-50 mIU/mL 1-2 Weeks: 50-500 mIU/mL 2-3 Weeks: 100-5000 mIU/mL 3-4 Weeks: 500-10,000 mIU/mL 4-5 Weeks:1000-50,000 mIU/mL 5-6 Weeks: 10,000-100,000 mIU/mL 6-8 Weeks: 15,000-200,000 mIU/mL 2-3 Months:10,000-100,000 mIU/mL Performed By: #### L 700.8000 ####[facility] [id number] [place], [place], [address] hCG Titer Quant., Serumon HCG QUANT. 86774 mIU/mL High <9 non-preg [facility] Comment on above: Result Comment: Gest ational Age 0.2-1 Week: 5-50 mIU/mL 1-2 Weeks: 50-500 mIU/mL 2-3 Weeks: 100-5000 mIU/mL 3-4 Weeks: 500-10,000 mIU/mL 4-5 Weeks:1000-50,000 mIU/mL 5-6 Weeks: 10,000-100,000 mIU/mL 6-8 Weeks: 15,000-200,000 mIU/mL 2-3 Months:10,000-100,000 mIU/mL Performed By: #### L 700.8000 ####[facility] [id number] [place], [place], [address] Init OB < 14Wks USon 025 Init OB < 14Wks [facility] Imaging Services [address] [place], [place] [id number] Init OB < 14Wks US MR#: [id number] Acct: [id number] Name: NATA QUEZADA Rep #: [id number] : 2000 F 24 From: Silverio Blood MD PCP: Dr. Matilde Castillo MD Status: REG CLI Study: Init OB < 14Wks US Date of Exam: 06/26/25 Exam# [id number] Ordering Dr: Rosie Stinson CNM PROCEDURE: INIT OB < 14WKS US 06/26/2025 REASON FOR EXAM: DATING TECHNIQUE: Procedure Code: USOBIFT Modality: US Procedure: INIT OB < 14WKS US COMPARISON: None. FINDINGS Number: 1 ESTIMATED WEIGHT: ESTIMATED WEIGHT PERCENTILE (24+ weeks): ESTIMATED GESTATIONAL AGE: By Ultrasound: 5 weeks and 5 days. BIOPHYSICAL ASSESSMENT: No heart rate is detected. MATERNAL ANATOMY: Adnexa: The right ovary measures 3 x 2.7 x 2.3 cm. The left ovary measures 2.6 x 2.4 x 0.9 cm. The ovaries are unremarkable in echotexture and vascularity. A 1.4 x 1.6 x 1 cm complex cyst may represent corpus luteum cyst in the right ovary. Cervical Length (if measured): Unremarkable. Closed. The uterus measures 8.5 cm in length. ANATOMY: Yolk sac measures 2 mm. No pole is seen which can be due to early . US/Init OB < 14Wks US IMPRESSION: Intraperitoneal gestational sac is seen corresponds to age of 5 weeks and 5 days. No evident complications. No pole or heart rate can not detected which can be due to early . Continued follow-up with ultrasound is recommended. Reading Location: [facility] CC: CHONG Stinson; Dr. Matilde Castillo MD Import/Export Specialist: Signed Normal [facility] Surgery Visit Reporton 06-26 Surgery Visit Report [facility] [address] [place] [address]. [address] [place] [address] OFFICE VISIT Date of Service: 06/26/25 MR#: [id number] Acct: [id number] Name: NATA QUEZADA Rep #: [id number] : 2000 Provider: Dr. Jesus shaw MD Age/Sex: 24/F Location: [facility] Status: Signed Intake Vital Signs 06/18/25 08:34 06/26/25 14:17 Height 5 ft 4 in 5 ft 4 in Weight: 177 lb BMI 30.4 BP 140/87 H Blood Pressure Location Lt brachial Position Sitting Respiration 17 Pulse 107 H Pulse Source Monitor Pulse Oximetry (%) 97 Oxygen Delivery Method room air Intake Visit Reasons: BIRADS 4 Chief Complaint: birads 4 Accompanied by: Significant Other Is patient in pain?: No Allergies sertraline Adverse Reaction (Severe, Verified 06/18/25 08:36) syncopal episode Medications ???Medication ???Instructions ???Recorded ???Confirmed ???Type ondansetron 4 mg disintegrating 4 mg PO Q6H PRN nausea and 5 06/26/25 Rx tablet vomiting #30 tabs bupropion HCl 150 mg 24 hr tablet, 150 mg PO QAM #30 tabs 06/13/25 06/26/25 Rx extended release (Wellbutrin XL) escitalopram oxalate 5 mg tablet 5 mg PO QDAY #30 tabs 06/13/25 Rx ibuprofen 600 mg tablet 600 mg PO TID #60 tabs 06/18/25 Rx PFSH Medical History Generalized anxiety disorder MDD (major depressive disorder) [...] POTS (postural orthostatic tachycardia syndrome) Uncle Age: 56 CVA (cerebral vascular accident) Grandmother Blood clot in vein CVA (cerebral vascular accident) Grandfather Lung cancer Heart failure Social History adopted: No household members: spouse and children number of children: 1 current occupational status: employed current occupation: [employer] current occupational exposures/hazards: No pets and animals: No history of recent travel: No sexually active: Yes Smoking Status: Never smoker alcohol intake: never substance use type: does not use caffeine: Yes (1) Type: coffee frequency: does not exercise seatbelt use: always do you feel safe at home: Yes additional social history: Spouse - Damion Female Reproductive History Menstrual Ab spontaneous: 2 HPI HPI HPI: The patient is a 24-year-old female who is about 5 weeks . She recently discovered a lump in the left breast. Ultrasound was subsequently performed and shows a less than 1 cm hypoechoic nodule. This was thought to most likely represent a fibroadenoma. Nevertheless, biopsy was recommended. Patient presents to discuss biopsy. She denies any breast issues or complaints otherwise. No nipple discharge or drainage. ROS General General: Yes fatigue; No weight change, appetite, colon cancer, breast cancer or weakness HEENT HEENT: No difficulty swallowing, eye injury, eye surgery, swollen glands or hoarseness Endo Endocrine: No thyroid disease, diabetes mellitus, thyroid cancer, Hair loss, heat intolerance or cold intolerance Skin Skin: No rash or changing moles Breast Breast: Yes abnormal mammogram and abnormal US; No left breast lump, right breast lump, nipple discharge, breast pain or breast enlargement Musc Musculoskeletal: Yes back problems; No arthritis, rheumatoid arthritis, gout or joint pain Cardio Cardiovascular: No murmur, pacemaker, heart disease, atrial fibrillation, high blood pressure, heart attack, heart stent, palpitations, shortness of breath with exertion or chest pain Psych Psychiatric: Yes depression and anxiety; No hearing voices Resp Respiratory: Yes shortness of breath, No sleep apnea, No cough, No COPD, No asthma, No emphysema and No wheezing Gastro Gastrointestinal: Yes abdominal pain, Yes nausea or vomiting, No diarrhea, Yes constipation, No blood in stool, No acid reflux, No hemorrhoids, No ulcers, No gallbladder problem and No black,tarry stools Rosalio Hematologic: No blood thinners, No blood disorders, No bleeding, No anemia and No blood clots Neuro Neurologic: No system reviewed and no additional complaints, except as docum (more content not included)... Normal [facility] hCG Titer Quant., Serumon HCG QUANT. 1203 mIU/mL High <9 non-preg [facility] Comment on above: Result Comment: Gest ational Age 0.2-1 Week: 5-50 mIU/mL 1-2 Weeks: 50-500 mIU/mL 2-3 Weeks: 100-5000 mIU/mL 3-4 Weeks: 500-10,000 mIU/mL 4-5 Weeks:1000-50,000 mIU/mL 5-6 Weeks: 10,000-100,000 mIU/mL 6-8 Weeks: 15,000-200,000 mIU/mL 2-3 Months:10,000-100,000 mIU/mL Performed By: #### L 700.8000 #### [facility] Laboratory [address] [place], [place], [address] Breast Limited Unilateralon 06-19-2025 Breast Limited Unilateral [facility] Imaging Services [address] [place] [address] Breast Limited Unilateral MR#: [id number] Acct: [id number] Name: NATA QUEZADA Rep #: [id number] : 2000 F 24 From: Julian duarte MD PCP: Dr. Matilde Catsillo MD Status: REG CLI Study: Breast Limited Unilateral Date of Exam: Exam# [id number] Ordering Dr: Sharmin Hernandez PROCEDURE: BREAST LIMITED UNILATERAL 06/19/2025 REASON FOR EXAM: F, Age 24 y/o , LEFT BREAST LUMP COMPARISON: None. TECHNIQUE: Procedure Code: USBRSTLIMIT Modality: US Procedure: BREAST LIMITED UNILATERAL. The upper portion of the left breast was examined with ultrasound. FINDINGS: The palpable lump corresponds to a 5 mm x 8 mm x 4 mm hypoechoic solid nodule at the 2 o'clock position of the breast at 5 cm from the nipple. This most likely represents a fibroadenoma although biopsy recommended. US/Breast Limited Unilateral IMPRESSION: 5 mm x 8 mm x 4 mm hypoechoic solid nodule at the 2 o'clock position of the breast at 5 cm from the nipple. Biopsy recommended. BI-RADS 4: SUSPICIOUS RECOMMENDATION: Biopsy Recommended Reading Location: [facility] CC: GALILEO Hernandez; Dr. Matilde Castillo MD Import/Export Specialist: Signed Normal [facility] hCG Titer Quant., Serumon HCG QUANT. 556 mIU/mL High <9 non-preg [facility] Comment on above: Result Comment: Gest ational Age 0.2-1 Week: 5-50 mIU/mL 1-2 Weeks: 50-500 mIU/mL 2-3 Weeks: 100-5000 mIU/mL 3-4 Weeks: 500-10,000 mIU/mL 4-5 Weeks:1000-50,000 mIU/mL 5-6 Weeks: 10,000-100,000 mIU/mL 6-8 Weeks: 15,000-200,000 mIU/mL 2-3 Months:10,000-100,000 mIU/mL Performed By: #### L 700.8000 #### [facility] Laboratory [address] [place], [address] Orthopedic Visit Reporton Orthopedic Visit Report [facility] [address] [place] [address] [address] [place] [address] OFFICE VISIT Date of Service: 06/18/25 MR#: [id number] Acct: [id number] Name: NATA QUEZADA Rep #: [id number] : 2000 Provider: Dr. Ricardo bustos DO Age/Sex: 24/F Location: [facility] Status: Signed Intake Vital Signs 06/11/25 13:40 06/13/25 07:33 06/18/25 08:34 Height 5 ft 4 in 5 ft 4 in 5 ft 4 in Weight: 165 lb 164 lb 168 lb 4 oz BMI 28.3 28.1 28.8 BP 118/64 109/72 Blood Pressure Location Lt brachial Position Sitting Respiration 16 Pulse 106 H Pulse Source Monitor Intake Visit Reasons: LEFT WRIST Accompanied by: Self Is patient in pain?: Yes Pain scale (1-10): 5 Allergies sertraline Adverse Reaction (Severe, Verified 06/18/25 08:36) syncopal episode Medications ???Medication ???Instructions ???Recorded ???Confirmed ???Type ondansetron 4 mg disintegrating 4 mg PO Q6H PRN nausea and 5 06/18/25 Rx tablet vomiting #30 tabs bupropion HCl 150 mg 24 hr tablet, 150 mg PO QAM #30 tabs 06/13/25 06/18/25 Rx extended release (Wellbutrin XL) escitalopram oxalate 5 mg tablet 5 mg PO QDAY #30 tabs 06/13/25 Rx ibuprofen 600 mg tablet 600 mg PO TID #60 tabs 06/18/25 Rx PFSH Medical History Generalized anxiety disorder MDD (major depressive disorder) [...] POTS (postural orthostatic tachycardia syndrome) Uncle Age: 56 CVA (cerebral vascular accident) Grandmother Blood clot in vein CVA (cerebral vascular accident) Grandfather Lung cancer Heart failure Social History adopted: No household members: spouse and children number of children: 1 current occupational status: employed current occupation: [employer] current occupational exposures/hazards: No pets and animals: No history of recent travel: No sexually active: Yes Smoking Status: Never smoker alcohol intake: never substance use type: does not use caffeine: Yes (1) Type: coffee frequency: does not exercise seatbelt use: always do you feel safe at home: Yes additional social history: Spouse - Damion HPI LEFT WRIST Details: This documentation accurately reflects the service provided and the decisions made by me, Dr. Ricardo Ordoñez, DO 06/18/25 0743. Part of today???s visit was documented by Daysi BARRON, acting as scribe. NATA QUEZADA is a 24 year old F with medical history significant for but not limited to generalized anxiety disorder, MDD, tendinitis of elbow or forearm, scoliosis, here today for left wrist pain that she has been having since the beginning of April when she woke up with pain. The day before she was swimming and had been doing breast strokes and this had been the [facility], she was doing this all day . She saw saw Tonya Sethi at [facility] who thought maybe her pain was tendonitis so gave her ibuprofen 800 mg once a day in the morning and told her to use ice or heat and rest. she states that her wrist pain is in the ulnar and dorsal side wrist. Initially her pain would radiated up her forearm but now the pain does not but does radiates up into her hand. At rest she does not have much pain but if she goes to lift up her toddler or push a door open with the wrist extended she has pain. She denies getting much relief with taking 800mg of Ibuprofen once a day for about 2 weeks. Denies numbness, tingling or other associated symptoms. She denies any past injuries to the wrist. Ortho Exam General General: Yes no acute distress and Yes well groomed Neurologic: Yes alert and Yes oriented x3 Psychologic: Yes reasonable and appropriate Right Wrist/Hand Skin/Wound: No Swelling and No Ecchymosis Left Wrist/Hand Skin/Wound: No Swelling, No Ecchymosis, Yes nail intact, Yes capillary refill normal and No erythema WRIST: no obvious dorsal subluxation of ulna compared to contralateral there is no piano garcia sign or DRUG instability non tender over distal radial ulnar joint She is tender over ulnar styloid an (more content not included)... Normal [facility] Wrist min 3 Viewson 06-18-20 Wrist min 3 Views [facility] Imaging Services [address] [place] [address] Wrist min 3 Views MR#: [id number] Acct: [id number] Name: NATA QUEZADA Rep #: [id number] : 2000 F 24 From: Ramirez Holloway MD PCP: Dr. Matilde Castillo MD Status: DEP AMB Study: Wrist min 3 Views Date of Exam: 06/18/25 Exam# [id number] Ordering Dr: Ricardo Ordoñez DO PROCEDURE: WRIST MIN 3 VIEWS 06/18/2025 REASON FOR EXAM: ON GOING PAIN TECHNIQUE: Procedure Code: RADWR Modality: DX Procedure: WRIST MIN 3 VIEWS Laterality: FINDINGS: No evidence of acute fracture or dislocation. Normal carpal alignment. The soft tissues are unremarkable. RAD/Wrist min 3 Views IMPRESSION: No acute osseous abnormalities. Reading Location: [id number] CC: Dr. Matilde Castillo MD; Dr. Ricardo Ordoñez DO Import/Export Specialist: Signed Normal [facility] MR/BMS.BPon 06-13-2025 MR/BMS.BP [facility] [address], [address] [place] [address] OFFICE VISIT Date of Service: 06/13/25 MR#: [id number] Acct: [id number] Name: NATA QUEZADA Rep #: [id number] : 2000 Provider: Dr. Jesus Valenzuela se, DO Age/Sex: 24/F Location: [facility] Status: Signed Intake Vital Signs 04/23/25 11:01 06/11/25 13:40 06/13/25 07:33 Height 5 ft 4 in 5 ft 4 in 5 ft 4 in Weight: 164 lb BMI 28.1 BP 109/72 Blood Pressure Location Lt brachial Position Sitting Respiration 16 Pulse 106 H Pulse Source Monitor BP Intake Visit Reasons: 2 M FU Accompanied by: Self Allergies sertraline Adverse Reaction (Severe, Verified 06/13/25 07:36) syncopal episode Medications ???Medication ???Instructions ???Recorded ???Confirmed ???Type ondansetron 4 mg disintegrating 4 mg PO Q6H PRN nausea and 5 06/13/25 Rx tablet vomiting #30 tabs bupropion HCl 150 mg 24 hr tablet, 150 mg PO QAM #30 tabs 06/13/25 06/13/25 Rx extended release (Wellbutrin XL) escitalopram oxalate 5 mg tablet 5 mg PO QDAY #30 tabs 06/13/2507/28 Rx PFSH Medical History Generalized anxiety disorder MDD (major depressive disorder) [...] POTS (postural orthostatic tachycardia syndrome) Uncle Age: 56 CVA (cerebral vascular accident) Grandmother Blood clot in vein CVA (cerebral vascular accident) Grandfather Lung cancer Heart failure Social History adopted: No household members: spouse and children number of children: 1 current occupational status: employed current occupation: [employer] current occupational exposures/hazards: No pets and animals: No history of recent travel: No sexually active: Yes Smoking Status: Never smoker alcohol intake: never substance use type: does not use caffeine: Yes (1) Type: coffee frequency: does not exercise seatbelt use: always do you feel safe at home: Yes additional social history: Spouse - Damion Female Reproductive History Menstrual Ab spontaneous: 2 HPI History of Present Illness History provided by: patient HPI: Nata Quezada is a 24 year old female who presents today for follow up evaluation. Patient reports that she is feeling the same with the use of lexapro. Does feel somewhat more anxious than she had been feeling. Admits to having a melt down on Wednesday which she describes as crying, anxious, and overwhelmed. Lasted about 1/2 hour. Blood pressure has been largely stable. Sleep has been largely good, but does wake up 2-3 times at night. This doesn't necessarily bother her to a great extent. Appetite has been stable. Feels like brain fog may have actually gotten worse in recent past. Feels like she is more easily forgetting things or remembering things. Review of Systems Constitutional Reports: fatigue; Denies: fever(s), chills or change in weight Eyes Denies: change in vision or blurry vision Ears, Nose, Mouth, Throat Denies: throat pain, neck pain or change in hearing Cardiovascular Denies: chest pain, palpitations or dyspnea Respiratory Denies: dyspnea, cough or wheezing Gastrointestinal Denies: abdominal pain, nausea, vomiting, diarrhea or constipation Genitourinary Denies: dysuria or urinary frequency Musculoskeletal Denies: back pain, neck pain, joint pain or muscle weakness Integumentary/Breast Denies: rash or new lesions Neurological Reports: headache(s) (every day; takes ibuprofen); Denies: dizziness or confusion Endocrine Reports: fatigue; Denies: excessive sweating Hematologic/Lymphatic Denies: easy bruising or easy bleeding Allergic/Immunologic Denies: wheezing Exam Mental Status Exam - Psych Appearance casually dressed and no apparent distress Attitude cooperative and calm Activity/Motor Behavior MSE activity/motor behavior finding no adventitious movements Speech regular rate, regular volume and regular prosody Mood anxious and irritable Affect congruent Thought Process linear, logical and coherent Thought Content no delusions and no hallucinations Suicid (more content not included)... Normal [facility] [employer] Office Visit Reporton 06-11-2025 [employer] Office Visit Report [facility] [address], [address] [place] [address] OFFICE VISIT Date of Service: 06/11/25 MR#: [id number] Acct: [id number] Name: NATA QUEZADA Rep #: [id number] : 2000 Provider: GALILEO Jordan Age/Sex: 24/F Location: [facility] Status: Signed Intake Vital Signs 05/21/25 14:24 06/11/25 13:40 Height 5 ft 4 in 5 ft 4 in Weight: 165 lb 165 lb BMI 28.3 28.3 BP 119/77 118/64 Blood Pressure Location Lt brachial Position Sitting Respiration 16 Pulse 73 Pulse Source Monitor Intake Visit Reasons: Breast lump Chief Complaint: Breast lump Batch Trucker Required: No Is patient in pain?: No Allergies sertraline Adverse Reaction (Severe, Verified 06/11/25 13:40) syncopal episode Medications ???Medication ???Instructions ???Recorded ???Confirmed ???Type ondansetron 4 mg disintegrating 4 mg PO Q6H PRN nausea and 5 06/11/25 Rx tablet vomiting #30 tabs escitalopram oxalate 5 mg tablet 5 mg PO QDAY #30 tabs 05/11/2505/28 Rx Is last menstrual period known: Yes Post menopausal: No Patient : No : No PFSH Medical History Generalized anxiety disorder MDD (major depressive disorder) [...] POTS (postural orthostatic tachycardia syndrome) Uncle Age: 56 CVA (cerebral vascular accident) Grandmother Blood clot in vein CVA (cerebral vascular accident) Grandfather Lung cancer Heart failure Social History adopted: No household members: spouse and children number of children: 1 current occupational status: employed current occupation: [employer] current occupational exposures/hazards: No pets and animals: No history of recent travel: No sexually active: Yes Smoking Status: Never smoker alcohol intake: never substance use type: does not use caffeine: Yes (1) Type: coffee frequency: does not exercise seatbelt use: always do you feel safe at home: Yes additional social history: Spouse - Damion HPI Breast lump Details: NATA QUEZADA is a 24 year old who presents for left breast lump; noticed this approx a week ago. She reports this is painful; feels it is getting bigger. Denies any nipple discharge. No family history of breast cancer that she is aware of. History 3 Elective abortions Hx Para 1 Spontaneous abortions 2 Hx # Term Pregnancies 1 Ectopic pregnancies Hx # Pregnancies Multiple births # of living children 1 Past Pregnancies Del. Date Name GA/Weeks Outcome Route Bth Weight Infant Gen Labor Lgth Anesthesia Del Locatn Provider FOB 07/28/23 Oseas 38 live - full term 6lb 1oz Male 24hr epidural Tisha Bruno ROS Const Constitutional: Reports system reviewed and no additional complaints, except as documented : Reports system reviewed and no additional complaints, except as documented; Denies nipple discharge Skin Skin/Breast: Reports as per HPI, breast mass and breast pain; Denies breast skin changes or nipple discharge Psych Psych: Reports system reviewed and no additional complaints, except as documented Exam Const General: cooperative and no acute distress Orientation: oriented x3 HENMT Head: normal to inspection Neck Neck: normal visual inspection Chest Breast inspection: normal inspection of the breasts and normal inspection of the axillae Breast palpation: normal palpation of the axillae and abnormal palpation of the breast (lateral midline lump of left breast) left Resp Effort Inspection: normal respiratory effort Coding Level of Care Code Off vis,est,level 3 Diagnoses Breast lump N63.0 Assessment and Plan Assessment and Plan (1) Breast lump: Status: Acute Plan: Diagnostic and ultrasound ordered. If negative recommend limiting caffeine intake and monitor. Orders: Orders DIAG MAMM W/CAD, BILAT Today N63.0 - Unspecified lump in unspecified breast Breast Limited Unilateral Today N63.0 - Unspecified lump in unspecified breast 06/11 (more content not included)... Normal [facility] Brain W/WO Contraston 2024 Brain W/WO Contrast [facility] Imaging Services [address] [place] [address] [id number] Brain W/WO Contrast MR#: [id number] Acct: [id number] Name: NATA QUEZADA Rep #: [id number] : 2000 F 24 From: Eriberto Kellogg MD PCP: Dr. Matilde Castillo MD Status: REG CLI Study: Brain W/WO Contrast Date of Exam: 06/08/25 Exam# [id number] Ordering Dr: Ramirez Roberts PROCEDURE: BRAIN W/WO CONTRAST 06/08/2025 REASON FOR EXAM: HEADACHES TECHNIQUE: Procedure Code: MRIBRWW Modality: MR Procedure: BRAIN W/WO CONTRAST Multiplanar and multisequence images were obtained. CONTRAST: Jenni scan VOLUME: 15 mL FINDINGS: There is no pathologic diffusion to suggest an acute or recent infarction. The craniovertebral junction is unremarkable and there is no suprasellar mass. Orbits are symmetric. Normal brainstem. Normal cerebellum. No abnormal flow voids. No findings that suggest intracranial demyelination. No intra-axial or extra-axial mass or hemorrhage. On coronal T2 weighted images there is no evidence of temporal lobe asymmetry. On postcontrast imaging, no findings of pathologic enhancement are identified. MRI/Brain W/WO Contrast IMPRESSION: Study within normal limits Reading [facility] CC: Dr. Matilde Castillo MD; SHRADDHA Noriega Import/Export Specialist: Signed Normal [facility] MR/BMS.BPon 05-21-2025 MR/BMS.BP [facility] [address], [address] [place] [address] OFFICE VISIT Date of Service: 05/21/25 MR#: [id number] Acct: [id number] Name: NATA QUEZADA Rep #: [id number] : 2000 Provider: Dr. Jesus Valenzuela se, Age/Sex: 24/F Location: [facility] Status: Signed Intake Vital Signs 05/11/25 10:25 05/21/25 14:24 Height 5 ft 4 in 5 ft 4 in Weight: 162 lb 165 lb BMI 27.8 28.3 BP 104/60 119/77 Blood Pressure Location Lt brachial Lt brachial Position Sitting Sitting Respiration 16 16 Pulse 99 73 Pulse Source Monitor Monitor Temp 96.3 F L Pulse Oximetry (%) 98 Oxygen Delivery Method room air BP Intake Visit Reasons: Follow up Accompanied by: Self Allergies sertraline Adverse Reaction (Severe, Verified 05/21/25 14:48) syncopal episode Medications ???Medication ???Instructions ???Recorded ???Confirmed ???Type ondansetron 4 mg disintegrating 4 mg PO Q6H PRN nausea and 5 05/21/25 Rx tablet vomiting #30 tabs escitalopram oxalate 5 mg tablet 5 mg PO QDAY #30 tabs 05/11/25 Rx PFSH Medical History Generalized anxiety disorder MDD (major depressive disorder) [...] 1 current occupational status: employed current occupation: [employer] current occupational exposures/hazards: No pets and animals: No history of recent travel: No sexually active: Yes Smoking Status: Never smoker alcohol intake: never substance use type: does not use caffeine: Yes (1) Type: coffee frequency: does not exercise seatbelt use: always do you feel safe at home: Yes additional social history: Spouse - Damion Female Reproductive History Menstrual Ab spontaneous: 2 HPI History of Present Illness History provided by: patient HPI: Nata Quezada is a 24 year old female who presents today for follow up evaluation. Patient had a severe reaction to sertraline and a near syncopal episode after increasing to 100 mg of sertraline when at work. Describes having a sudden drop in blood pressure with associated headache, fatigue, and fever. Has since been taking Lexapro and if feeling a little closer to her self. Does feel somewhat more reactive, specifically in regards to feeling angry easier. Sleep has been fine. Denies any issues with sleep. Continues to have some consistent brain fog. Review of Systems Constitutional Denies: fever(s), chills, change in weight or fatigue Eyes Denies: change in vision or blurry vision Ears, Nose, Mouth, Throat Denies: throat pain, neck pain or change in hearing Cardiovascular Denies: chest pain, palpitations or dyspnea Respiratory Denies: dyspnea, cough or wheezing Gastrointestinal Denies: abdominal pain, nausea, vomiting, diarrhea or constipation Genitourinary Denies: dysuria or urinary frequency Musculoskeletal Denies: back pain, neck pain, joint pain or muscle weakness Integumentary/Breast Denies: rash or new lesions Neurological Reports: headache(s) (every day; takes ibuprofen); Denies: dizziness or confusion Endocrine Denies: fatigue or excessive sweating Hematologic/Lymphatic Denies: easy bruising or easy bleeding Allergic/Immunologic Denies: wheezing Exam Mental Status Exam - Psych Appearance casually dressed and no apparent distress Attitude cooperative and calm Activity/Motor Behavior MSE activity/motor behavior finding no adventitious movements Speech regular rate, regular volume and regular prosody Mood depressed (Better) Affect congruent Thought Process linear, logical and coherent Thought Content no delusions and no hallucinations Suicidal Ideation none Homicidal Ideation none Attention intact Concentration intact Sensorium/Orientation awake, alert and oriented x3 Gamal (more content not included)... Normal [facility] Genital Culture Comprehensiv taqueria 05-20-2025 VAC Reason for Exam: Vaginal Discharge Normal vaginal kathy isolated. No yeast, Gardnerella, Neisseria or beta-hemolytic Streptococcus isolated. Normal [facility] Comment on above: Performed By: #### L 700.8000 #### [facility] Laboratory [address] [place], [place], [address] Gram Stainon 05-18-2025 Reason for Exam: Vaginal Discharge Gram Stain 1+ Epithelial cells 4+ Gram positive rods No Gram negative diplococci Score = 0 Interpretation: 0-3 Normal, 4-6 Intermediate, 7-10 Positive BV Normal [facility] Comment on above: Performed By: #### L 700.8000 #### [facility] [address] [place], [place], [address] Internal Medicine Office Vis iton 05-11-2025 Internal Medicine Office Visit [facility] [address] [place] [address] OFFICE VISIT Date of Service: 05/11/25 MR#: [id number] Acct: [id number] Name: NATA QUEZADA Rep #: [id number] : 2000 Provider: SHRADDHA Noriega Age/Sex: 24/F Location: [facility] Status: Signed Intake Vital Signs 05/08/25 10:47 08/08/25 10:25 Height 5 ft 4 in 5 ft 4 in Weight: 162 lb BMI 27.8 BP 104/60 Blood Pressure Location Lt brachial Position Sitting Respiration 16 Pulse 99 Pulse Source Monitor Temp 96.3 F L Temp Source Temporal Pulse Oximetry (%) 98 Oxygen Delivery Method room air Intake Visit Reasons: Nausea/dizzy/reaction to zoloft Batch Trucker Required: No Accompanied by: Self Is patient in pain?: Yes Pain scale (1-10): 8 Allergies No Known Allergies Allergy (Verified 05/11/25 10:18) Medications ???Medication ???Instructions ???Recorded ???Confirmed ???Type ondansetron 4 mg disintegrating 4 mg PO Q6H PRN nausea and 5 05/11/25 Rx tablet vomiting #30 tabs escitalopram oxalate 5 mg tablet 5 mg PO QDAY #30 tabs 05/11/25 Rx famotidine 20 mg tablet 20 mg PO BID #20 tabs 05/11/2505/28 Rx Nurse's Note: Patient presents with symptoms of neausea, DOMINGUEZ, vomitting, weakness, and tiredness for 1 week. Patient was seen last week by Dr. Dickey's office, and was increased from 50mg of sertraline to 100mg. Which is when symptoms first occured after taking first dose. Patient, at work yesterday, BP was 70/30 and 73/58. Patient also got some lab work done, which in the chart. Patient feels extremely tired and has vomitted 4 times in last 24 hours. [facility] Medical History Generalized anxiety disorder MDD (major depressive disorder) [...] 1 current occupational status: employed current occupation: [employer] current occupational exposures/hazards: No pets and animals: No history of recent travel: No sexually active: Yes Smoking Status: Never smoker alcohol intake: never substance use type: does not use caffeine: Yes (1) Type: coffee frequency: does not exercise seatbelt use: always do you feel safe at home: Yes additional social history: Spouse - Damion Female Reproductive History Menstrual Ab spontaneous: 2 HPI HPI Details: NATA QUEZADA, is a 24 F who presents to the office today for some symptoms after recent increase in her medication from psychiatry. She states since then she has had a lot of nausea / reflux / vomiting. She started the sertraline about 1-2 months ago starting on the 25mg and gradually increasing. She states that when she first started on the 25mg that she had a little nausea and some minor diarrhea but it was very minor and not enough to want to stop it. She states that she tolerated jumping to 50mg without any issues. She increased to 100mg after she was not feeling like the 50mg was helping her. She made this jump on 05-08-25 and that night is when she had the reflux and the nausea/vomiting. She thought maybe it was just a one-time thing so she did try the next night and the same thing happened and then tried it 1 more time having the same results. She did notify the psychiatrist and they did back her down to 25 mg with the intention of taking her off of this and trying something different. They did order some blood work which patient did get. They did call her and let her know that everything was okay. Patient also suffers from chronic headaches. She states that she has had headaches dating back to when she was a teenager that she states were once weekly. However when she was /after childbirth the headaches progress and pretty much she has them every day. She does describe some light and sound sensitivities as well as some nausea occasional vomiting. She describ (more content not included)... Normal [facility] Bedside Glucoseon 05-10-2025 FINGERSTICK GLU 88 mg/dL Normal 74-106 [facility] Comment on above: Result Comment: FLEX SANTOS OF PATIENT CARE PER NURSING PROTOCOL Performed By: #### L 501.080 #### [facility] Laboratory [address] [place], [address] CBC W/Diff, Automatedon 08-0 7-2024 Absolute Lymph 0.22 X10 3/uL Low 0.83-4.51 [facility] Comment on above: Performed By: #### L 500.4050, L100.0100 #### [facility] [address] [place], [address] Absolute Neut 9.2 X10 3/uL High 2.0-7.7 [facility] Comment on above: Performed By: #### L 500.4050, L100.0100 #### [facility] [address] [place], [address] Basophils/100 WBC (Bld) 0.2 % Normal 0-1 [facility] Comment on above: Performed By: #### L 500.4050, L100.0100 #### [facility] [address] [place], [address] Eosinophils/100 WBC (Bld) 0.3 % Normal 0-5 [facility] Comment on above: Performed By: #### L 500.4050, L100.0100 #### [facility] [address] [place], [address] Erythrocyte distribution width (RBC) [Ratio] 12.2 % Normal 11.6-14.6 [facility] Comment on above: Performed By: #### L 500.4050, L100.0100 #### [facility] [address] [place], [address] Hematocrit (Bld) [Volume fraction] 43.9 % Normal 37-47 [facility] Comment on above: Performed By: #### L 500.4050, L100.0100 #### [facility] [address] [place], [address] Hemoglobin (Bld) [Mass/Vol] 14.6 g/dL Normal 12.0-15.0 [facility] Comment on above: Performed By: #### L 500.4050, L100.0100 #### [facility] [address] [place], [address] IG% 0.200 Normal 0.0-0.9 [facility] Comment on above: Result Comment: IG% - Immature Granulocytes (promyelocytes, myelocytes and metamyelocytes) > 1% indicates that a LEFT SHIFT is Present. Performed By: #### L 500.4050, L100.0100 #### [facility] [address] [place], [address] Lymphocytes/100 WBC (Bld) 2.2 % Low 19-41 [facility] Comment on above: Performed By: #### L 500.4050, L100.0100 #### [facility] [address] [place], [address] MCH (RBC) [Entitic mass] 28.5 pg Normal 27.0-32.0 [facility] Comment on above: Performed By: #### L 500.4050, L100.0100 #### [facility] [address] [place], [address] MCHC (RBC) [Mass/Vol] 33.3 g/dL Normal 32-36 [facility] Comment on above: Performed By: #### L 500.4050, L100.0100 #### [facility] [address] [place], [address] MCV (RBC) [Entitic vol] 85.6 fL Normal 81-99 [facility] Comment on above: Performed By: #### L 500.4050, L100.0100 #### [facility] [address] [place], [address] Monocytes/100 WBC (Bld) 3.9 % Normal 0-10 [facility] Comment on above: Performed By: #### L 500.4050, L100.0100 #### [facility] [address] [place], [address] Neutrophils/100 WBC (Bld) 93.2 % High 47-70 [facility] Comment on above: Performed By: #### L 500.4050, L100.0100 #### [facility] [address] [place], [address] Nucleated RBC (Bld) [#/Vol] 0 10*3/uL Normal 0-5 [facility] Comment on above: Performed By: #### L 500.4050, L100.0100 #### [facility] [address] [place], [address] Platelet mean volume (Bld) [Entitic vol] 10.8 fL Normal 6.2-12.0 [facility] Comment on above: Performed By: #### L 500.4050, L100.0100 #### [facility] [address] [place], [address] Platelets (Bld) [#/Vol] 185 10*3/uL Normal 150-450 [facility] Comment on above: Performed By: #### L 500.4050, L100.0100 #### [facility] [address] [place], [address] RBC (Bld) [#/Vol] 5.13 10*6/uL Normal 4.2-5.4 [facility] Comment on above: Performed By: #### L 500.4050, L100.0100 #### [facility] [address] [place], [address] RDW SD 38.1 fl Normal 35.1-43.9 [facility] Comment on above: Performed By: #### L 500.4050, L100.0100 #### [facility] [address] [place], [address] WBC (Bld) [#/Vol] 9.9 10*3/uL Normal 4.4-11.0 [facility] Comment on above: Performed By: #### L 500.4050, L100.0100 #### [facility] [address] [place], [address] Comprehensive Metabolic Prof [facility] 05-10-2025 Albumin [Mass/Vol] 4.3 g/dL Normal 3.5-5.0 [facility] Comment on above: Performed By: #### L 500.4050, L100.0100 #### [facility] [address] [place], [address] Albumin/Globulin [Mass ratio] 1.7 {ratio} Normal 0.9-2.4 [facility] Comment on above: Performed By: #### L 500.4050, L100.0100 #### [facility] [address] [place], [address] ALK PHOS 95 U/L Normal 35-104 [facility] Comment on above: Performed By: #### L 500.4050, L100.0100 #### [facility] [address] [place], [address] ALT [Catalytic activity/Vol] 11 U/L Normal <=34 [facility] Comment on above: Performed By: #### L 500.4050, L100.0100 #### [facility] [address] [place], [address] AST [Catalytic activity/Vol] 17 U/L Normal <=31 [facility] Comment on above: Performed By: #### L 500.4050, L100.0100 #### [facility] [address] [place], [address] Bilirubin [Mass/Vol] 0.38 mg/dL Normal 0.00-1.30 [facility] Comment on above: Performed By: #### L 500.4050, L100.0100 #### [facility] [address] [place], [address] BUN/CRE 27.2 RATIO High 10-20 [facility] Comment on above: Performed By: #### L 500.4050, L100.0100 #### [facility] [address] [place], [address] Calcium [Mass/Vol] 8.7 mg/dL Normal 7.6-11.0 [facility] Comment on above: Performed By: #### L 500.4050, L100.0100 #### [facility] [address] [place], [address] Chloride [Moles/Vol] 104 mmol/L Normal 98-108 [facility] Comment on above: Performed By: #### L 500.4050, L100.0100 #### [facility] [address] [place], [address] CO2 [Moles/Vol] 24.6 mmol/L Normal 21.0-32.0 [facility] Comment on above: Performed By: #### L 500.4050, L100.0100 #### [facility] [address] [place], [address] Creatinine [Mass/Vol] 0.63 mg/dL Low 0.70-1.20 [facility] Comment on above: Performed By: #### L 500.4050, L100.0100 #### [facility] [address] [place], [address] GAP 10 Normal 5-15 [facility] Comment on above: Performed By: #### L 500.4050, L100.0100 #### [facility] [address] [place], [address] GFR/1.73 sq M.predicted among non-blacks MDRD (S/P/Bld) [Vol rate/Area] 128 mL/min/{1.73_m2} Normal >60 [facility] Comment on above: Result Comment: mL/m in/1.73m2 CKD-EPI Creatinine Equation (2020) Performed By: #### L 500.4050, L100.0100 #### [facility] [address] [place], [address] Globulin (S) [Mass/Vol] 2.5 g/dL Normal 2.2-4.2 [facility] Comment on above: Performed By: #### L 500.4050, L100.0100 #### [facility] [address] [place], [address] Glucose [Mass/Vol] 99 mg/dL Normal 70-99 [facility] Comment on above: Performed By: #### L 500.4050, L100.0100 #### [facility] [address] [place], [address] Potassium [Moles/Vol] 4.1 mmol/L Normal 3.3-5.1 [facility] Comment on above: Performed By: #### L 500.4050, L100.0100 #### [facility] [address] [place], [address] Sodium [Moles/Vol] 139 mmol/L Normal 133-145 [facility] Comment on above: Performed By: #### L 500.4050, L100.0100 #### [facility] [address] [place], [address] T PROT 6.7 g/dL Normal 5.9-8.4 [facility] Comment on above: Performed By: #### L 500.4050, L100.0100 #### [facility] [address] [place], [place], [address] Urea nitrogen [Mass/Vol] 17 mg/dL Normal 4-19 [facility] Comment on above: Performed By: #### L 500.4050, L100.0100 #### [facility] [address] [place], [address] Transvaginal Non-on 05-09-2025 Transvaginal Non- [facility] [address] [place] [address] Transvaginal Non- MR#: [id number] Acct: [id number] Name: NATA QUEZADA Rep #: [id number] : 2000 F 24 From: Julian duarte MD PCP: Dr. Matilde Castillo MD Status: REG CLI Study: Transvaginal Non- Date of Exam: Exam# [id number] Ordering Dr: Rosie Stinson CNM PROCEDURE: TRANSVAGINAL NON- 05/09/2025 REASON FOR EXAM: PELVIC PAIN TECHNIQUE: TRANSVAGINAL NON- COMPARISON: None FINDINGS: LMP: April 26, 2025 Measurements: Uterus: 7.9 cm x 5 cm x 3.4 cm with a volume of 70.93 mL Endometrial Thickness: 8.2 mm. It is trilaminar. Right Ovary: 3.2 cm x 2.5 cm x 1.9 cm with a volume of 8.03 mL. Left Ovary: 2.3 cm x 2.3 cm x 1.4 cm with a volume of 3.92 mL. Uterus: Normal size, myometrial echotexture, and contour. Endometrium: Unremarkable. Right ovary: Normal size and echotexture. Left ovary: Normal size and echotexture. Other: No large pelvic mass identified. US/Transvaginal Non- IMPRESSION: NORMAL TRANSABDOMINAL PELVIC ULTRASOUND. Reading Location: [id number] CC: CHONG Stinson; Dr. Matilde Castillo MD Import/Export Specialist: Signed Normal [facility] [employer] Office Visit Reporton 05-08-2025 [employer] Office Visit Report [facility] [address], [address] [place] [address] OFFICE VISIT Date of Service: 05/08/25 MR#: [id number] Acct: [id number] Name: NATA QUEZADA Rep #: [id number] : 2000 Provider: CHONG Oneill ams Age/Sex: 24/F Location: [facility] [place] Status: Signed Intake Vital Signs 04/23/25 11:01 05/08/25 10:46 05/08/25 10:47 Height 5 ft 4 in 5 ft 4 in 5 ft 4 in Weight: 165 lb BMI 28.3 BP 113/81 H Intake Visit Reasons: Dyspareunia Chief Complaint: Dyspareunia Batch Trucker Required: No Is patient in pain?: No Allergies No Known Allergies Allergy (Verified 05/08/25 10:45) Medications ???Medication ???Instructions ???Recorded ???Confirmed ???Type ondansetron 4 mg disintegrating 4 mg PO Q6H PRN nausea and 5 05/08/25 Rx tablet vomiting #30 tabs sertraline 100 mg tablet 100 mg PO QDAY #30 tabs 05/04/25 0 05/08/25 Rx Is last menstrual period known: Yes Last Menstrual Period: 04/26/25 Post menopausal: No Patient : No : No PFSH Medical History Generalized anxiety disorder MDD (major depressive disorder) [...] 1 current occupational status: employed current occupation: [employer] current occupational exposures/hazards: No pets and animals: No history of recent travel: No sexually active: Yes Smoking Status: Never smoker alcohol intake: never substance use type: does not use caffeine: Yes (1) Type: coffee frequency: does not exercise seatbelt use: always do you feel safe at home: Yes additional social history: Spouse - Damion HPI Dyspareunia Details: NATA QUEZADA is a 24 year old who presents for dyspareunia since childbirth 2 years. Notices more with deeper penetration and will occasionally need to change positions due to this. Hx of 2 SAB over the last 4 months and feels as though it has increased in intensity since then. Denies irritation/itching/odo r. Has not had TVUS or done PFPT for this yet. Female Reproductive History Last Menstrual Period: 04/26/25 Questions: metrorrhagia: No, sexually active: Yes, dyspareunia: No and PCB: No History 3 Elective abortions Hx Para 1 Spontaneous abortions 2 Hx # Term Pregnancies 1 Ectopic pregnancies Hx # Pregnancies Multiple births # of living children 1 Past Pregnancies Del. Date Name GA/Weeks Outcome Route Bth Weight Gen [facility] 07/28/23 Oseas 38 live - full term 6lb 1oz Male 24hr epidural [place] Yodit Bruno ROS Const Constitutional: Reports system reviewed and [...] complaints, except as documented Exam Const General: cooperative, healthy appearing, comfortable and no acute distress Resp Effort Inspection: normal respiratory effort, able to speak in complete sentences and symmetric chest movement GI Inspection: normal to inspection Palpation: soft External Female Exam: normal external appearance and normal appearance of the urethra Urethra: normal appearance of the urethra Speculum Exam (more content not included)... Normal [facility] Elbow min 3 Viewson 05-07-20 Elbow min 3 Views [facility] [address] [place] [address] Elbow min 3 Views MR#: [id number] Acct: [id number] Name: NATA QUEZADA Rep #: [id number] : 2000 F 24 From: Harish Barbour PCP: Dr. Matilde Castillo MD Status: REG CLI Study: Elbow min 3 Views Date of Exam: 05/07/25 Exam# [id number] Ordering Dr: Tonya Sethi PROCEDURE: ELBOW MIN 3 VIEWS 05/07/2025 REASON FOR EXAM: PAIN TECHNIQUE: ELBOW MIN 3 VIEWS COMPARISON: None. RAD/Elbow min 3 Views IMPRESSION: No left elbow joint effusion is seen. No significant arthritic process or joint narrowing is seen. No fracture, dislocation, or other significant osseous or joint space abnormality is seen. Reading Location: [place] [address] CC: PROSTHETIC LAB TECHNICIANGuanakito Sethi; Dr. Matilde Castillo MD Import/Export Specialist: Signed Normal [facility] Office Visit Reporton 2024 Office Visit Report [facility] [address] [place] [address] OFFICE VISIT Date of Service: 02/21/25 MR#: [id number] Acct: [id number] Patient: NATA QUEZADA Rep #: [id number] : 2000 Provider: SHRADDHA Jones Age/Sex: 24/F Location: [facility] Status: Signed Employer Purchased Covid Test Note: Patient here today for Covid Testing, requested by their Employer. Assessment and Plan Assessment and Plan Medications: Discontinued nitrofurantoin monohyd/m-cryst 100 mg must administer with a meal/food Discontinued Reason: By Stop Date 100 mg PO BID 7 days 14 caps 0RF N39.0 - Urinary tract infection, site not specified Plan Details Goals Barriers: Goals Decrease pain Improve ROM Decrease spasm Barriers Sc[facility] Billing Sheet Mary Kaycatrachita Bae Swab-Rapid: Yes 05/07/25 0638 Date Jesus Bustos Signature: Date (if applicable) CC: Normal [facility] Anticardiolipin IgG, IgMon 0 05-02-2025 ANTICARDIO IgG < 9 Normal 0-14 [facility] Comment on above: Result Comment: Nega tive: <15 Indeterminate: 15 - 20 Low-Med Positive: >20 - 80 High Positive: >80 Performed By: #### L 501.080 #### [facility] Laboratory [address] [place], [address] Anticardio.IgM < 9 Normal 0-12 [facility] Comment on above: Result Comment: Nega tive: <13 Indeterminate: 13 - 20 Low-Med Positive: >20 - 80 High Positive: >80 Performed at: - [facility] [id number] Kennel Manager Dog Track: Narinder Pathak MD, Phone: [phone] Performed at: - [facility] [address] [id number] Kennel Manager Dog Track: Adán Robertson PhD, Phone: [phone] Performed By: #### L 501.080 #### [facility] [address] [place], [address] Beta-2 Glycoprot IgG, A, 05-02-2025 B2 GLYCO I IGA <9 Normal 0-25 [facility] Comment on above: Result Comment: Resu lt Units: GPI IgA units The reference interval reflects a 3SD or 99th percentile interval, which is thought to represent a potentially clinically significant result in accordance with the International Consensus Statement on the classification criteria for definitive antiphospholipid syndrome (APS). J Thromb Haem 2006;4:295-306. Performed By: #### L 501.080 #### [facility] [address] [place], [address] B2 GLYCO I IGG <9 Normal 0-20 [facility] Comment on above: Result Comment: Resu lt Units: GPI IgG units The reference interval reflects a 3SD or 99th percentile interval, which is thought to represent a potentially clinically significant result in accordance with the International Consensus Statement on the classification criteria for definitive antiphospholipid syndrome (APS). J Thromb Haem 2006;4:295-306. Performed By: #### L 501.080 #### [facility] [address] [place], [address] B2 GLYCO I IGM <9 Normal 0-32 [facility] Comment on above: Result Comment: Resu lt Units: GPI IgM units The reference interval reflects a 3SD or 99th percentile interval, which is thought to represent a potentially clinically significant result in accordance with the International Consensus Statement on the classification criteria for definitive antiphospholipid syndrome (APS). J Thromb Haem 2006;4:295-306. Performed By: #### L 501.080 #### [facility] [address] [place], [address] CBC W/Diff, Automatedon 07-3 0-2024 Absolute Lymph 1.41 X10 3/uL Normal 0.83-4.51 [facility] Comment on above: Performed By: #### L 506.1001, L100.0100, L503.6550, L503.6030 #### [facility] [address] [place], [address] Absolute Neut 5.4 X10 3/uL Normal 2.0-7.7 [facility] Comment on above: Performed By: #### L 506.1001, L100.0100, L503.6550, L503.6030 #### [facility] [address] [place], [address] Basophils/100 WBC (Bld) 0.4 % Normal 0-1 [facility] Comment on above: Performed By: #### L 506.1001, L100.0100, L503.6550, L503.6030 #### [facility] [address] [place], [address] Eosinophils/100 WBC (Bld) 0.5 % Normal 0-5 [facility] Comment on above: Performed By: #### L 506.1001, L100.0100, L503.6550, L503.6030 #### [facility] [address] [place], [address] Erythrocyte distribution width (RBC) [Ratio] 12.2 % Normal 11.6-14.6 [facility] Comment on above: Performed By: #### L 506.1001, L100.0100, L503.6550, L503.6030 #### [facility] [address] [place], [address] Hematocrit (Bld) [Volume fraction] 41.1 % Normal 37-47 [facility] Comment on above: Performed By: #### L 506.1001, L100.0100, L503.6550, L503.6030 #### [facility] [address] [place], [address] Hemoglobin (Bld) [Mass/Vol] 13.9 g/dL Normal 12.0-15.0 [facility] Comment on above: Performed By: #### L 506.1001, L100.0100, L503.6550, L503.6030 #### [facility] [address] [place], [address] IG% 0.400 Normal 0.0-0.9 [facility] Comment on above: Result Comment: IG% - Immature Granulocytes (promyelocytes, myelocytes and metamyelocytes) > 1% indicates that a LEFT SHIFT is Present. Performed By: #### L 506.1001, L100.0100, L503.6550, L503.6030 #### [facility] [address] [place], [address] Lymphocytes/100 WBC (Bld) 19.2 % Normal 19-41 [facility] Comment on above: Performed By: #### L 506.1001, L100.0100, L503.6550, L503.6030 #### [facility] [address] [place], [address] MCH (RBC) [Entitic mass] 28.5 pg Normal 27.0-32.0 [facility] Comment on above: Performed By: #### L 506.1001, L100.0100, L503.6550, L503.6030 #### [facility] [address] [place], [address] MCHC (RBC) [Mass/Vol] 33.8 g/dL Normal 32-36 [facility] Comment on above: Performed By: #### L 506.1001, L100.0100, L503.6550, L503.6030 #### [facility] [address] [place], [address] MCV (RBC) [Entitic vol] 84.2 fL Normal 81-99 [facility] Comment on above: Performed By: #### L 506.1001, L100.0100, L503.6550, L503.6030 #### [facility] [address] [place], [address] Monocytes/100 WBC (Bld) 6.4 % Normal 0-10 [facility] Comment on above: Performed By: #### L 506.1001, L100.0100, L503.6550, L503.6030 #### [facility] [address] [place], [address] Neutrophils/100 WBC (Bld) 73.1 % High 47-70 [facility] Comment on above: Performed By: #### L 506.1001, L100.0100, L503.6550, L503.6030 #### [facility] [address] [place], [address] Nucleated RBC (Bld) [#/Vol] 0 10*3/uL Normal 0-5 [facility] Comment on above: Performed By: #### L 506.1001, L100.0100, L503.6550, L503.6030 #### [facility] [address] [place], [address] Platelet mean volume (Bld) [Entitic vol] 10.8 fL Normal 6.2-12.0 [facility] Comment on above: Performed By: #### L 506.1001, L100.0100, L503.6550, L503.6030 #### [facility] [address] [place], [address] Platelets (Bld) [#/Vol] 265 10*3/uL Normal 150-450 [facility] Comment on above: Performed By: #### L 506.1001, L100.0100, L503.6550, L503.6030 #### [facility] [address] [place], [address] RBC (Bld) [#/Vol] 4.88 10*6/uL Normal 4.2-5.4 [facility] Comment on above: Performed By: #### L 506.1001, L100.0100, L503.6550, L503.6030 #### [facility] [address] [place], [address] RDW SD 37.0 fl Normal 35.1-43.9 [facility] Comment on above: Performed By: #### L 506.1001, L100.0100, L503.6550, L503.6030 #### [facility] [address] [place], [address] WBC (Bld) [#/Vol] 7.4 10*3/uL Normal 4.4-11.0 [facility] Comment on above: Performed By: #### L 506.1001, L100.0100, L503.6550, L503.6030 #### [facility] [address] [place], [address] Ferritinon 05-02-2025 Ferritin [Mass/Vol] 20 ng/mL Low 22-378 [facility] Comment on above: Performed By: #### L 506.1001, L100.0100, L503.6550, L503.6030 ####[facility] [address] [place], [address] Iron+Iron Binding Capacityon 05-02-2025 IRON SATURATION 25.0 Normal 13-59 [facility] Comment on above: Performed By: #### L 506.1001, L100.0100, L503.6550, L503.6030 ####[facility] [address] [place], [address] TIBC 338 ug/dL Normal 250-450 [facility] Comment on above: Performed By: #### L 506.1001, L100.0100, L503.6550, L503.6030 ####[facility] [address] [place], [address] UIBC 252 ug/dL Normal 228-428 [facility] Comment on above: Performed By: #### L 506.1001, L100.0100, L503.6550, L503.6030 ####[facility] [address] [place], [address] Lupus Anticoagulant Compon 0 05-02-2025 aPTT Coag (Bld) [Time] 31.1 s Normal 0.0-43.5 [facility] Comment on above: Performed By: #### L 501.080 #### [facility] [address] [place], [address] DILUTE PT (dPT) 33.8 sec Normal 0.0-47.6 [facility] Comment on above: Performed By: #### L 501.080 #### [facility] [address] [place], [address] dPT Conf. Ratio 1.03 Ratio Normal 0.00-1.34 [facility] Comment on above: Performed By: #### L 501.080 #### [facility] [address] [place], [address] DRVVT 34.0 sec Normal 0.0-47.0 [facility] Comment on above: Performed By: #### L 501.080 #### [facility] [address] [place], [address] Interpretation Comment: Normal . [facility] Comment on above: Result Comment: No l upus anticoagulant was detected. Performed By: #### L 501.080 #### [facility] [address] [place], [address] THROMBIN TIME 20.4 sec Normal 0.0-23.0 [facility] Comment on above: Performed By: #### L 501.080 #### [facility] [address] [place], [address] Vitamin D,25 Hydroxyon 05-02 Vitamin D 25-OH 43.3 ng/mL Normal 30-100 [facility] Comment on above: Result Comment: Linda min D Status Deficiency: <20 ng/mL (50nmol/L) Insufficiency: 20-30 ng/mL (50-75 nmol/L) Sufficiency: 30-100 ng/mL (75-250 nmol/L) Toxicity: >100 ng/mL (>250 nmol/L) Performed By: #### L 506.1001, L100.0100, L503.6550, L503.6030 ####[facility] [address] [place], [place], [address] Hemoglobin A1con 04-30-2025 HbA1c (Bld) [Mass fraction] 5.1 % Normal <=5.6 [facility] Comment on above: Result Comment: Norm al < 5.7 % Prediabetic 5.7 - 6.4 % Diabetic >or= 6.5 % Please note range changes. Performed By: #### L 501.080 #### [facility] [address] [place], [place], [address] Thyroid Stim Hormone (TSH)on 04-30-2025 TSH 1.560 uIU/mL Normal 0.300-4.200 [facility] Comment on above: Performed By: #### L 501.080 #### [facility] Laboratory [address] [place], [place], [address] hCG Titer Quant., Serumon HCG QUANT. < 1 Normal <9 non-preg [facility] Comment on above: Result Comment: Gest ational Age 0.2-1 Week: 5-50 mIU/mL 1-2 Weeks: 50-500 mIU/mL 2-3 Weeks: 100-5000 mIU/mL 3-4 Weeks: 500-10,000 mIU/mL 4-5 Weeks:1000-50,000 mIU/mL 5-6 Weeks: 10,000-100,000 mIU/mL 6-8 Weeks: 15,000-200,000 mIU/mL 2-3 Months:10,000-100,000 mIU/mL Performed By: #### L 501.080 #### [facility] [address] [place], [place], [address] hCG Titer Quant., Serumon HCG QUANT. 11 mIU/mL High <9 non-preg [facility] Comment on above: Result Comment: Gest ational Age 0.2-1 Week: 5-50 mIU/mL 1-2 Weeks: 50-500 mIU/mL 2-3 Weeks: 100-5000 mIU/mL 3-4 Weeks: 500-10,000 mIU/mL 4-5 Weeks:1000-50,000 mIU/mL 5-6 Weeks: 10,000-100,000 mIU/mL 6-8 Weeks: 15,000-200,000 mIU/mL 2-3 Months:10,000-100,000 mIU/mL Performed By: #### L 700.8000 #### [facility] [address] [place], [place], [address] hCG Titer Quant., Serumon HCG QUANT. 15 mIU/mL High <9 non-preg [facility] Comment on above: Result Comment: Gest ational Age 0.2-1 Week: 5-50 mIU/mL 1-2 Weeks: 50-500 mIU/mL 2-3 Weeks: 100-5000 mIU/mL 3-4 Weeks: 500-10,000 mIU/mL 4-5 Weeks:1000-50,000 mIU/mL 5-6 Weeks: 10,000-100,000 mIU/mL 6-8 Weeks: 15,000-200,000 mIU/mL 2-3 Months:10,000-100,000 mIU/mL Performed By: #### L 500.4050, L100.0100 #### [facility] Laboratory [facility] [place], [place], [id number] MR/BMS.BPon 04-23-2025 MR/BMS.[address], [address] [place] [address] OFFICE VISIT Date of Service: 04/23/25 MR#: [id number] Acct: [id number] Name: NATA QUEZADA Rep #: [id number] : 2000 Provider: Dr. Jesus Valenzuela se, DO Age/Sex: 24/F Location[place] [facility] Status: Signed Intake Vital Signs 09/15/24 13:18 [...] (Updated 04/24/25 @ 06:[address] Jesus Dickey DO) Generalized anxiety disorder MDD (major depressive [...] 1 current occupational status: employed current occupation: [employer] current occupational exposures/hazards: No pets and animals: [...] patient evaluation. Patient admits to seeing a PHARMACY SALESPERSON in past for psychiatric care. Was previously [...] denies sign (more content not included)... 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 04/12 when she does these activities. Then it goes away after a moment. 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 Pt denies loss of feeling in hand, and denies weakness or dropping things. [facility] Medical History Brain fog Anxiety and depression [...] 1 current occupational status: employed current occupation: [employer] current occupational exposures/hazards: No pets and animals: [...] to forearm. Patient has not tried any lkbo-xtf-elekqnu medications pain only occurs with movement not [...] in bowel (more content not included)... Normal [facility] hCG Titer Quant., Serumon HCG QUANT. < 1 Normal <9 non-preg [facility] Comment on above: Result Comment: Gest ational Age 0.2-1 Week: 5-50 mIU/mL 1-2 Weeks: 50-500 mIU/mL 2-3 Weeks: 100-5000 mIU/mL 3-4 Weeks: 500-10,000 mIU/mL 4-5 Weeks:1000-50,000 mIU/mL 5-6 Weeks: 10,000-100,000 mIU/mL 6-8 Weeks: 15,000-200,000 mIU/mL 2-3 Months:10,000-100,000 mIU/mL Performed By: #### L 501.080 #### [facility] [address] [place], [address] [employer] Office Visit Reporton 03-27-2025 [employer] Office Visit Report [facility] [address], [address] [place] [address] OFFICE VISIT Date of Service: 03/26/25 MR#: [id number] Acct: [id number] Name: NATA QUEZADA Rep #: [id number] : 2000 Provider: Dr. Elizabeth argueta MD Age/Sex: 24/F Location: [facility] [place] [facility] Status: Signed Intake Vital Signs 03/21/25 12:27 Height 5 ft 4 in Intake Visit Reasons: Early bleeding Allergies No Known Allergies Allergy (Verified 02/21/25 10:46) [facility] Medical History (Updated 03/27/25 @ 13:21 by [...] 1 current occupational status: employed current occupation: [employer] current occupational exposures/hazards: No pets and animals: [...] 07/28/23 Oseas 38 live - full term [place] ROS Const Constitutional: Reports as per HPI; [...] Cosigner Signature: Date (if applicable) CC: Normal [facility] hCG Titer Quant., Serumon HCG QUANT. 8 mIU/mL Normal <9 non-preg [facility] Comment on above: Result Comment: Gest ational Age 0.2-1 Week: 5-50 mIU/mL 1-2 Weeks: 50-500 mIU/mL 2-3 Weeks: 100-5000 mIU/mL 3-4 Weeks: 500-10,000 mIU/mL 4-5 Weeks:1000-50,000 mIU/mL 5-6 Weeks: 10,000-100,000 mIU/mL 6-8 Weeks: 15,000-200,000 mIU/mL 2-3 Months:10,000-100,000 mIU/mL Performed By: #### L 501.080 #### [facility] Laboratory [address] [place], [address] hCG Titer Quant., Serumon HCG QUANT. 33 mIU/mL High <9 non-preg [facility] Comment on above: Result Comment: Gest ational Age 0.2-1 Week: 5-50 mIU/mL 1-2 Weeks: 50-500 mIU/mL 2-3 Weeks: 100-5000 mIU/mL 3-4 Weeks: 500-10,000 mIU/mL 4-5 Weeks:1000-50,000 mIU/mL 5-6 Weeks: 10,000-100,000 mIU/mL 6-8 Weeks: 15,000-200,000 mIU/mL 2-3 Months:10,000-100,000 mIU/mL Performed By: #### L 500.4050, L100.0100 #### [facility] [address] [place], [address] Office Visit Reporton 2024 Office Visit Report [facility] [address] [place] [address] OFFICE VISIT Date of Service: 02/21/25 MR#: [id number] Acct: [id number] Patient: NATA QUEZADA Rep #: [id number] : 2000 Provider: SHRADDHA Jones Age/Sex: 24/F Location: [facility] Status: Signed Employer Purchased Covid Test Note: Patient here today for Covid Testing, requested by their Employer. Assessment and Plan Assessment and Plan Orders: Orders POC Cepheid Covid, FluAB, RSV Today Medications: New benzonatate 200 mg PO TID PRN 20 caps 0RF cough Plan Details Goals Barriers: Goals Decrease pain Improve ROM Decrease spasm Barriers Scoliosis 02/21/25 1130 Date Jesus Lancasterignvenessa Signature: Date (if applicable) CC: Normal [facility] Urgent Care Visit Reporton 0 02-21-2025 Urgent Care Visit Report [facility] [address], [address] [place] [address] OFFICE VISIT Date of Service: 02/21/25 MR#: [id number] Acct: [id number] Name: NATA QUEZADA Rep #: [id number] : 2000 Provider: SHRADDHA Jones Age/Sex: 24/F Location: [facility] Status: Signed Intake Vital Signs 02/20/25 14:49 [...] No Known Allergies Allergy (Verified 02/21/25 10:46) [facility] Medical History (Updated 02/12/25 @ 14:07 by [...] 1 current occupational status: employed current occupation: [employer] current occupational exposures/hazards: No pets and animals: [...] recently dx???d w/ similar URI complaints. No epts-pbc-evhrnhu taken to assist. No other associated symptoms [...] Attitude: coope (more content not included)... Normal [facility] Urgent Care Visit Reporton 0 02-20-2025 Urgent Care Visit Report [facility] [address], [address] [place] [address] OFFICE VISIT Date of Service: 02/20/25 MR#: [id number] Acct: [id number] Name: NATA QUEZADA Rep #: [id number] : 2000 Provider: SHRADDHA Jones Age/Sex: 24/F Location: [facility] Status: Signed Intake Vital Signs 02/12/25 13:41 [...] has been going on for 3 days. [facility] Medical History (Updated 02/12/25 @ 14:07 by [...] 1 current occupational status: employed current occupation: [employer] current occupational exposures/hazards: No pets and animals: [...] recently dx???d w/ similar URI complaints. No spbk-lmg-hygbjfm taken to assist. No other associated symptoms [...] no ru (more content not included)... Normal [facility] Internal Medicine Office Vis rose 02-12-2025 Internal Medicine Office Visit [facility] [address] [place] [address] OFFICE VISIT Date of Service: 02/12/25 MR#: [id number] Acct: [id number] Name: NATA QUEZADA Rep #: [id number] : 2000 Provider: Dr. Matilde kennedy MD Age/Sex: 24/F Location: [facility] Status: Signed Intake Vital Signs 09/15/24 13:18 [...] vendor Chief Complaint: Establish care. Brain fog. Batch Trucker Required: No Is patient in pain?: No [...] 1 current occupational status: employed current occupation: [employer] current occupational exposures/hazards: No pets and animals: [...] and colleagues, with an educational epi from [employer]. FRANCI-7 BMS FRANCI-7 Feeling nervous, anxious, or [...] and colleagues, with an educational epi from [employer]. HPI HPI Chief Complaint: Establish care. Brain [...] and depression, (more content not included)... Normal [facility] Genital Culture Comprehensiv taqueria 05-11-2025 VAC Reason for Exam: Vaginal Discharge Normal [...] S Vancomycin Islt DEVANG 0.25 S Normal [facility] Comment on above: Performed By: #### L 700.8000 #### [facility] Laboratory [address] [place], [place], [address] Gram Stainon 02-06-2025 Reason for Exam: Vaginal Discharge Gram Stain 4+ Gram variable melody No Gram negative diplococci Rare Gram positive cocci Score = 8 Interpretation: 0-3 Normal, 4-6 Intermediate, 7-10 Positive BV Normal [facility] Comment on above: Performed By: #### L 700.8000 #### [facility] [address] [facility] [address] [employer]work Designer Office Visit Reporton 02-06-2025 Ornamental Metalwork Designer Office Visit Report [facility] [address], [address] [place] [address] OFFICE VISIT Date of Service: 02/06/25 MR#: [id number] Acct: [id number] Name: NATA QUEZADA Rep #: [id number] : 2000 Provider: CHONG Oneill ams Age/Sex: 24/F Location: [facility] [place] Status: Signed Intake Vital Signs 09/15/24 13:18 01/04/25 10:20 02/06/25 09:59 Height 5 ft 5 in 5 ft 5 in 5 ft 5 in Weight: 140 lb BMI 23.3 BP 139/84 H Intake Visit Reasons: PARAGUARD REMOVAL Chief Complaint: Paragard Removal Batch Trucker Required: No Is patient in pain?: No [...] 07/28/23 Oseas 38 live - full term [place] HPI PARAGUARD REMOVAL Details: NATA QUEZADA is [...] its entirety and patient tolerated well. Coding Tash (more content not included)... Normal [facility] Vitamin D,25 Hydroxyon 02-02 Vitamin D 25-OH 28.5 ng/mL Low 30-100 [facility] Comment on above: Result Comment: Linda min D Status Deficiency: <20 ng/mL (50nmol/L) Insufficiency: 20-30 ng/mL (50-75 nmol/L) Sufficiency: 30-100 ng/mL (75-250 nmol/L) Toxicity: >100 ng/mL (>250 nmol/L) Performed By: #### L 501.080 #### [facility] Laboratory [facility] [place] [address] [address], [address] Genital Culture Comprehensiv taqueria 01-08-2025 VAC Reason for Exam: Vaginal Discharge Normal vaginal kathy isolated. No yeast, Gardnerella, Neisseria or beta-hemolytic Streptococcus isolated. Genital Culture Comprehensive GNR lactose recreational therapy technician Amount Growth Rare Normal [facility] Comment on above: Performed By: #### L 700.8000 #### [facility] Laboratory [address] [place], [place], [address] Gram Stainon 01-04-2025 GS Reason for Exam: Vaginal Discharge Gram Stain No Gram negative diplococci 2+ White Blood Cells 4+ Gram positive rods 1+ Gram negative rods Score = 1 Interpretation: 0-3 Normal, 4-6 Intermediate, 7-10 Positive BV Normal [facility] Comment on above: Performed By: #### L 700.8000 #### [facility] Laboratory [address] [place], [place], [id number] Ornamental Metalwork Designer Office Visit Reporton 01-04-2025 Ornamental Metalwork Designer Office Visit Report [facility]'s [address], [address] [place] [address] OFFICE VISIT Date of Service: 01/04/25 MR#: [id number] Acct: [id number] Name: NATA QUEZADA Rep #: [id number] : 2000 Provider: GALILEO Jordan Age/Sex: 24/F Location: [facility] [place] Status: Signed Intake Vital Signs 09/15/24 13:18 01/04/25 10:10 01/04/25 10:20 Height 5 ft 5 in 5 ft 5 in 5 ft 5 in Weight: 135 lb BMI 22.4 BP 136/84 H Intake Visit Reasons: Culture Chief Complaint: Culture Batch Trucker Required: No Is patient in pain?: No Allergies No Known Allergies Allergy (Unverified 01/04/25 10:20) Medications ???Medication ???Instructions ???Recorded ???Confirmed ???Type amoxicillin 875 mg tablet 875 mg PO BID #14 tabs 12/29/24 Rx fluconazole 150 mg tablet 150 mg PO Q3D 2 doses #2 tabs 12/2601/04/25 Rx Post menopausal: No Patient : No : No Control Method: [facility] History Segmental dysfunction of lumbar region [...] Bth Weight Gen Labor Lgth Anesthesia [facility] Provider FOB 07/28/23 Oseas 40 live - full term [place] ROS Const Constitutional: Denies chills, fatigue or [...] ROM Decrease (more content not included)... Normal [facility] Progress Noteon 12-12-2024 Thread Laster Authentication Interface Message Text HPI: Nata is [...] Craniofacial, Pediatric Plastic and Reconstructive Surgery 12/12/2024 [facility] Chiropractic Reporton 2024 Chiropractic Report [facility] [address] [place] [address] OFFICE VISIT Date of Service: 11/27/24 MR#: [id number] Acct: [id number] Name: NATA QUEZADA Rep #: [id number] : 2000 Provider: TIRSO Mina Age/Sex: 23/F Location[place] [facility] Status: Signed Intake Vital Signs 09/15/24 13:18 [...] Aggravating or associated factors: Lifting/Bending Relieving factors: Patient Support Specialist Pain Quality: aching and other (stiff) Exam [...] Segmental an (more content not included)... Normal [facility] Chiropractic Reporton 2024 Chiropractic Report [facility] [address] [place] [address] OFFICE VISIT Date of Service: 10/30/24 MR#: [id number] Acct: [id number] Name: NATA QUEZADA Rep #: [id number] : 2000 Provider: TIRSO Mina Age/Sex: 23/F [place] [facility] [place] Status: Signed Intake Vital Signs 09/15/24 13:18 [...] Aggravating or associated factors: Lifting/Bending Relieving factors: Patient Support Specialist Pain Quality: aching and other (stiff) Exam [...] Scoliosis Follo (more content not included)... Normal [facility] CBC W/Diff, Automatedon 10-05 Absolute Lymph 2.14 X10 3/uL Normal 0.83-4.51 [facility] Comment on above: Performed By: #### L 501.080 #### [facility] Laboratory [facility] [place] [address], [address] Absolute Neut 4.4 X10 3/uL Normal 2.0-7.7 [facility] Comment on above: Performed By: #### L 501.080 #### [facility] Laboratory [address] [place], [address] Basophils/100 WBC (Bld) 0.6 % Normal 0-1 [facility] Comment on above: Performed By: #### L 501.080 #### [facility] Laboratory [address] [place], [address] Eosinophils/100 WBC (Bld) 1.0 % Normal 0-5 [facility] Comment on above: Performed By: #### L 501.080 #### [facility] Laboratory [address] [place], [address] Erythrocyte distribution width (RBC) [Ratio] 12.3 % Normal 11.6-14.6 [facility] Comment on above: Performed By: #### L 501.080 #### [facility] Laboratory [address] [place], [address] Hematocrit (Bld) [Volume fraction] 43.7 % Normal 37-47 [facility] Comment on above: Performed By: #### L 501.080 #### [facility] Laboratory [address] [place], [address] Hemoglobin (Bld) [Mass/Vol] 14.6 g/dL Normal 12.0-15.0 [facility] Comment on above: Performed By: #### L 501.080 #### [facility] [address] [place], [address] IG% 0.300 Normal 0.0-0.9 [facility] Comment on above: Result Comment: IG% - Immature Granulocytes (promyelocytes, myelocytes and metamyelocytes) > 1% indicates that a LEFT SHIFT is Present. Performed By: #### L 501.080 #### [facility] Laboratory [address] [place], [address] Lymphocytes/100 WBC (Bld) 29.8 % Normal 19-41 [facility] Comment on above: Performed By: #### L 501.080 #### [facility] Laboratory [address] [place], [address] MCH (RBC) [Entitic mass] 28.3 pg Normal 27.0-32.0 [facility] Comment on above: Performed By: #### L 501.080 #### [facility] Laboratory [address] [place], [address] MCHC (RBC) [Mass/Vol] 33.4 g/dL Normal 32-36 [facility] Comment on above: Performed By: #### L 501.080 #### [facility] Laboratory [address] [place], [address] MCV (RBC) [Entitic vol] 84.7 fL Normal 81-99 [facility] Comment on above: Performed By: #### L 501.080 #### [facility] Laboratory [address] [place], [address] Monocytes/100 WBC (Bld) 6.8 % Normal 0-10 [facility] Comment on above: Performed By: #### L 501.080 #### [facility] Laboratory [address] [place], [address] Neutrophils/100 WBC (Bld) 61.5 % Normal 47-70 [facility] Comment on above: Performed By: #### L 501.080 #### [facility] Laboratory [address] [place], [address] Nucleated RBC (Bld) [#/Vol] 0 10*3/uL Normal 0-5 [facility] Comment on above: Performed By: #### L 501.080 #### [facility] Laboratory [address] [place], [address] Platelet mean volume (Bld) [Entitic vol] 10.5 fL Normal 6.2-12.0 [facility] Comment on above: Performed By: #### L 501.080 #### [facility] Laboratory [address] [place], [address] Platelets (Bld) [#/Vol] 287 10*3/uL Normal 150-450 [facility] Comment on above: Performed By: #### L 501.080 #### [facility] Laboratory [address] [place], [address] RBC (Bld) [#/Vol] 5.16 10*6/uL Normal 4.2-5.4 [facility] Comment on above: Performed By: #### L 501.080 #### [facility] Laboratory [address] [place], [address] RDW SD 37.6 fl Normal 35.1-43.9 [facility] Comment on above: Performed By: #### L 501.080 #### [facility] Laboratory [address] [place], [address] WBC (Bld) [#/Vol] 7.2 10*3/uL Normal 4.4-11.0 [facility] Comment on above: Performed By: #### L 501.080 #### [facility] Laboratory [address] [place], [address] Comprehensive Metabolic Prof [facility] 10-25-2024 Albumin [Mass/Vol] 4.1 g/dL Normal 3.2-5.0 [facility] Comment on above: Performed By: #### L 500.4050, L100.0100 #### [facility] Laboratory [address] [place], [address] Albumin/Globulin [Mass ratio] 1.1 {ratio} Normal 0.9-2.4 [facility] Comment on above: Performed By: #### L 500.4050, L100.0100 #### [facility] Laboratory [address] [place], [address] ALK P 131 U/L High 45-117 [facility] Comment on above: Performed By: #### L 500.4050, L100.0100 #### [facility] Laboratory [address] [place], [address] ALT [Catalytic activity/Vol] 24 U/L Normal 13-56 [facility] Comment on above: Performed By: #### L 500.4050, L100.0100 #### [facility] Laboratory [address] [place], [address] AST [Catalytic activity/Vol] 14 U/L Low 15-37 [facility] Comment on above: Performed By: #### L 500.4050, L100.0100 #### [facility] Laboratory [address] [place], [address] Bilirubin [Mass/Vol] 0.30 mg/dL Normal 0.20-1.00 [facility] Comment on above: Result Comment: For patients on eltrombopag therapy, use of [employer] TBIL is not recommended. Performed By: #### L 500.4050, L100.0100 #### [facility] Laboratory [address] [place], [address] BUN/CRE 16.8 RATIO Normal 10-20 [facility] Comment on above: Performed By: #### L 500.4050, L100.0100 #### [facility] Laboratory [address] [place], [address] CA,Total 9.2 mg/dL Normal 8.5-10.1 [facility] Comment on above: Performed By: #### L 500.4050, L100.0100 #### [facility] Laboratory [address] [place], [address] Chloride [Moles/Vol] 100 mmol/L Normal 98-107 [facility] Comment on above: Performed By: #### L 500.4050, L100.0100 #### [facility] Laboratory [address] [place], [address] CO2 [Moles/Vol] 27.0 mmol/L Normal 21.0-32.0 [facility] Comment on above: Performed By: #### L 500.4050, L100.0100 #### [facility] Laboratory [address] [place], [address] Creatinine [Mass/Vol] 0.83 mg/dL Normal 0.55-1.02 [facility] Comment on above: Result Comment: The validity of the calculated GFR GFRAA in patients over 70 years has not been determined. Clinical correlation is essential. Performed By: #### L 500.4050, L100.0100 #### [facility] Laboratory [address] [place], [address] EST GFR - AA 110 mL/min Normal >60 [facility] Comment on above: Result Comment: Afri can Uzbek GFR Calc Performed By: #### L 500.4050, L100.0100 #### [facility] Laboratory [address] [place], [address] GAP 9 Normal 5-15 [facility] Comment on above: Performed By: #### L 500.4050, L100.0100 #### [facility] Laboratory [address] [place], [address] GFR/1.73 sq M.predicted among non-blacks MDRD (S/P/Bld) [Vol rate/Area] 91 mL/min/{1.73_m2} Normal >60 [facility] Comment on above: Result Comment: Non- GFR Calc Performed By: #### L 500.4050, L100.0100 #### [facility] Laboratory [address] [place], [address] Globulin (S) [Mass/Vol] 3.7 g/dL Normal 2.2-4.2 [facility] Comment on above: Performed By: #### L 500.4050, L100.0100 #### [facility] Laboratory [address] [place], [address] Glucose [Mass/Vol] 89 mg/dL Normal 74-106 [facility] Comment on above: Performed By: #### L 500.4050, L100.0100 #### [facility] Laboratory [address] [place], [address] Potassium [Moles/Vol] 3.8 mmol/L Normal 3.5-5.1 [facility] Comment on above: Performed By: #### L 500.4050, L100.0100 #### [facility] Laboratory [address] [place], [address] Sodium [Moles/Vol] 137 mmol/L Normal 136-145 [facility] Comment on above: Performed By: #### L 500.4050, L100.0100 #### [facility] Laboratory [address] [place], [address] T PROT 7.8 g/dL Normal 6.4-8.2 [facility] Comment on above: Performed By: #### L 500.4050, L100.0100 #### [facility] Laboratory [address] [place], [address] Urea nitrogen [Mass/Vol] 14 mg/dL Normal 7-18 [facility] Comment on above: Performed By: #### L 500.4050, L100.0100 #### [facility] Laboratory [address] [place], [address] T4 Free Directon 10-25-2024 T4 FREE DIRECT 1.10 ng/dL Normal 0.76-1.46 [facility] Comment on above: Performed By: #### L 500.4050, L100.0100 #### [facility] Laboratory [address] [place], [address] Thyroid Stim Hormone (TSH)on 10-25-2024 TSH 1.480 uIU/mL Normal 0.358-3.740 [facility] Comment on above: Performed By: #### L 500.4050, L100.0100 #### [facility] Laboratory [address] [place], [address] Vitamin D,25 Hydroxyon 10-25 Vitamin D 25-OH 18.1 ng/mL Normal [facility] Comment on above: Result Comment: Linda min D 25([place]) Status Range Deficiency <20 ng/mL (50nmol/L) Insufficiency 20 - 30 ng/mL (50 - 75 nmol/L) Sufficiency 30 - 100 ng/mL (75 - 250 nmol/L) Toxicity >100 ng/mL (>250 nmol/L) Performed By: #### L 500.4050, L100.0100 #### [facility] Laboratory [address] [place], [address] Chiropractic Reporton 2024 Chiropractic Report [facility] [address] [place] [address] OFFICE VISIT Date of Service: 10/09/24 MR#: [id number] Acct: [id number] Name: DAINA QUEZADASA Rep #: [id number] : 2000 Provider: TIRSO Mina Age/Sex: 23/F Location[place] [facility] [place] Status: Signed with Addenda [...] Aggravating or associated factors: Lifting/Bending Relieving factors: Patient Support Specialist Pain Quality: aching and other (stiff) Exam [...] M99.01 - (more content not included)... Normal [facility] PAP I-G w/rfx hrHPV-Aptimaon 09-23-2024 ADEQ Comment Normal . [facility] Comment on above: Order Comment: Speci men Comment: [id number] Specimen Comment: Source.............Cervix;Endocervix Specimen Comment: LMP / Prev Treat...[id number] Specimen Comment: No. of containers..01 ThinPrep Vial Result Comment: Sati sfactory for evaluation. No endocervical component is identified. Performed By: #### L 7400.0353 #### [facility] Laboratory [address] [place], [place], [address] COMM . Normal . [facility] Comment on above: Order Comment: Speci men Comment: [id number] Specimen Comment: Source.............Cervix;Endocervix Specimen Comment: LMP / Prev Treat...[id number] Specimen Comment: No. of containers..01 ThinPrep Vial Performed By: #### L 7400.0353 #### [facility] Laboratory [address] [facility] [place], [place], [id number] COMMENT Comment Normal . [facility] Comment on above: Order Comment: Speci men Comment: [id number] Specimen Comment: Source.............Cervix;Endocervix Specimen Comment: LMP / Prev Treat...[id number] Specimen Comment: No. of containers..01 ThinPrep Vial Result Comment: This liquid based ThinPrep(R) pap test was screened with the use of an image guided system. Performed By: #### L 7400.0353 #### [facility] [address] [place], [place], [address] DIAG Comment Normal . [facility] Comment on above: Order Comment: Speci men Comment: [id number] Specimen Comment: Source.............Cervix;Endocervix Specimen Comment: LMP / Prev Treat...[id number] Specimen Comment: No. of containers..01 ThinPrep Vial Result Comment: NEGA TIVE FOR INTRAEPITHELIAL LESION OR MALIGNANCY. Performed By: #### L 7400.0353 #### [facility] Laboratory [address] [place], [place], [address] HPV RFLX Comment Normal . [facility] Comment on above: Order Comment: Speci men Comment: [id number] Specimen Comment: Source.............Cervix;Endocervix Specimen Comment: LMP / Prev Treat...[id number] Specimen Comment: No. of containers..01 ThinPrep Vial Result Comment: The HPV DNA reflex criteria were not met with this specimen result therefore, no HPV testing was performed. Performed at: [address] [id number] Kennel Manager Dog Track: Sylvie Dykes MD, Phone: [phone] Performed By: #### L 7400.0353 #### [facility] Laboratory [address] [place], [address] PAPSMR Comment Normal . [facility] Comment on above: Order Comment: Speci men Comment: [id number] Specimen Comment: Source.............Cervix;Endocervix Specimen Comment: LMP / Prev Treat...[id number] Specimen Comment: No. of containers..01 ThinPrep Vial Result Comment: The Pap smear is a screening test designed to aid in the detection of premalignant and malignant conditions of the uterine cervix. It is not a diagnostic procedure and should not be used as the sole means of detecting cervical cancer. Both false-positive and false-negative reports do occur. Performed By: #### L 7400.0353 #### [facility] Laboratory [address] [place], [place], [address] PERFORM Comment Normal . [facility] Comment on above: Order Comment: Speci men Comment: [id number] Specimen Comment: Source.............Cervix;Endocervix Specimen Comment: LMP / Prev Treat...[id number] Specimen Comment: No. of containers..01 ThinPrep Vial Result Comment: Shannan Fuchs, Chemist Steroids (ASCP) Performed By: #### L 7400.0353 #### [facility] [address] [place], [address] Ornamental Metalwork Designer Office Visit Reporton 09-15-2024 Ornamental Metalwork Designer Office Visit Report [facility] [address], [address] [place] [address] OFFICE VISIT Date of Service: 09/15/24 MR#: [id number] Acct: [id number] Name: NATA QUEZADA Rep #: [id number] : 2000 Provider: CHONG Oneill ams Age/Sex: 23/F Location: [facility] [place] Status: Signed Intake Vital Signs 08/28/24 11:28 09/15/24 13:15 09/15/24 13:18 Height 5 ft 5 in 5 ft 5 in 5 ft 5 in Weight: 139 lb 130 lb BMI 23.1 21.6 BP 112/70 128/84 H Blood Pressure Location Lt brachial Position Sitting Intake Visit 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 Normal [facility] Chiropractic Reporton 2023 Chiropractic Report [facility] [address] [place] [address] OFFICE VISIT Date of Service: 09/11/24 MR#: [id number] Acct: [id number] Name: NATA QUEZADA Rep #: [id number] : 2000 Provider: TIRSO Mina Age/Sex: 23/F Location[place] [facility] [place] Status: Signed with Addenda [...] Aggravating or associated factors: Lifting/Bending Relieving factors: Patient Support Specialist Pain Quality: aching and other (stiff) Exam [...] Goals D (more content not included)... Normal [facility] Chiropractic Reporton 2023 Chiropractic Report [facility] [address] [place] [address] OFFICE VISIT Date of Service: 08/28/24 MR#: [id number] Acct: [id number] Name: NATA QUEZADA Rep #: [id number] : 2000 Provider: TIRSO Mina Age/Sex: 23/F [place] [facility] [place] Status: Signed with Addenda ADDENDUM by TIRSO [...] 08/28/24 @ 13:[address] Vani Cm, [place]) Segmental dysfunction of lumbar region Segmental dysfunction of cervical region Migraines Surgical History (Updated 08/28/24 @ 10:58 by Esha Llanos) History of repair of congenital cleft palate History of tonsillectomy History of surgical procedure on maxillary sinus History of tympanoplasty Social History (Updated 08/28/24 @ 10:59 by Esha Lalnos) Smoking Status: Never smoker HPI EST CARE [...] Plan (1) (more content not included)... Normal [facility] US Pelv[place] 07-12-2024 Indication Localization of IUD [...] Read By: Elizabeth Robertson M.D. 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 Nata QUEZADA presents today for IUD check. She had a Paraguard placed on 10/01/2023. She has had pain since placement. Patient reported ultrasound 07/11/2024, reported unable to locate strings. REVIEW OF SYSTEMS: PAIN ASSESSMENT: Negative for pain, history of chronic pain, or current treatment for a chronic pain condition. SENSITIVE EXAM: The sensitive examination was discussed with the Patient or Patient's Authorized Switch Engineer. As applicable, any other physician, advance practice provider, medical student, or other health professional student that will be observing or involved in the sensitive examination for educational or training purposes was discussed with the Patient or Authorized Switch Engineer. The Patient or Authorized Switch Engineer has agreed to proceed with the sensitive [...] for Encounter Date Provider Department Center 07/11/2024 [id number]-MIEHLULLINDA MÁRQUEZ [place] Encounter Status:Closed by LINDA MÁRQUEZ on 07/11/24 Normal [facility] US Pelvison 07-11-2024 Radiology Study observation (narrative) [facility] UA DIP, URINE (POC)on 2023 BILIRUBIN UA (POCT) Small Abnormal Negative [facility] CLARITY UA (POCT) Clear [facility] COLOR UA (POCT) Yellow [facility] GLUCOSE UA (POCT) Negative Negative mg/dL [facility] Hemoglobin Ql (U) Moderate Abnormal Negative [facility] KETONE UA (POCT) Negative Negative mg/dL [facility] LEUKOCYTES UA (POCT) Negative Negative [facility] NITRITE UA (POCT) Positive Abnormal Negative [facility] PH UA (POCT) 6.0 4.5 - 8.0 [facility] Protein Ql (U) 30 mg/dL Abnormal Negative mg/dL [facility] SPECIFIC GRAVITY UA (POCT) >=1.030 1.005 - 1.030 [facility] UROBILINOGEN UA (POCT) 0.2 E.U./dL Normal E.U./dL [facility] CNPNon 08-20-2023 CNPN Telephone ([id number]) TRACEEMayurNATA ([id number]) 02 [facility] Date Time Provider Department 08/20/23 ADILIA KIRKPATRICK [id number] During your visit today, we recorded the following information about you: Adilia Kirkpatrick RN 08/20/2023 3:03 PM Signed OB Post Discharge Patient Call Back: Date: 08/20/2023 Patient Name: Nata Penaloza : 2000 Delivery Summary: Yaz Oseas Kramer [[id number]] Delivery Information: Delivery Date: 07/28/23 Delivery type: Vaginal, Spontaneous Delivering Clinician: Yodit Fuchs MD Vacuum Used: No Forceps Used: No Shoulder Dystocia Present: No Lacerations: 1st Episiotomy: None [place]: Gender: Male Weight (grams): 2772 g One Minute : 9 Five Minute : 9 Patient was contacted after her inpatient discharge from [facility]. She reported the following as it relates [...] in: Bassinet Baby in need of a crib/Eamt-ssp-Ddif: No Baby's feeding: Method: Human milk only. Breast Feeding Problems: Darron Betts, no problems BF but is also starting to pump and feed the EBM back to baby via bottle. Frequency: Within Normal Limits Education: N/A Baby's elimination habits: Average wet diapers: Within Normal Limits Average dirty diapers: Within Normal Limits Education: N/A Follow-up appointments: Scheduled appointment with a provider relations rep: Has seen Scheduled a follow up appointment [...] Encounter Status:Closed by ADILIA [facility]KPATRICK [facility] HNO ID: [id number] Author: Delaney Durand APRN.CNM Service: Obstetrics Author Type: Live Truck Technician Type: Discharge Summary Filed: 07/30/2023 7:28 AM Note Text: Attestation signed by Rhoda Foster DO at 07/30/2023 5:47 PM I reviewed the pertinent patient history, HPI, vitals, and hospital course and agree with the CN's recommendation for care and disposition home. 07/29/23 [...] PROCEDURES/SURGERY DURING HOSPITALIZATION: Delivery Summary: Ruben Penaloza [[id number]] Delivery Information: Delivery Date: 07/28/23 Delivery type: [...] Commonly known (more content not included)... Normal [facility] ANES POSTPROC EVALon 023 ANES POSTPROC EVAL HNO ID: [id number] Author: Huey Light APRN.BLENDING TANK TENDER HELPER Service: Anesthesiology Author Type: Nurse Oil Well Service Operator Helper Type: Anesthesia Postprocedure Evaluation Filed: 07/29/2023 7:15 AM Note Text: POST ANESTHESIA EVALUATION NOTE : 2000 Procedure Summary Date: 07/28/23 Room / Location: Anesthesia Start: 0205 Anesthesia Stop: 48 Procedure: LABOR ANALGESIA Diagnosis: Scheduled Providers: Responsible Provider: Prachi Frederick APRN.BLENDING TANK TENDER HELPER Anesthesia Type: epidural ASA Status: 2 Anesthesia Type: epidural Last Vitals Vitals Value Taken Time BP 07/29/23 0714 Temp 07/29/23 0714 Pulse 07/29/23 0714 Resp 07/29/23 0714 SpO2 07/29/23 0714 Ruben Penaloza [[id number]] Baby Delivery: 07/28/2023 0948 Post Anesthesia Patient [...] Anesthesia Observations No Documentation SIGNATURE: Huey Light APRN.BLENDING TANK TENDER HELPER PATIENT NAME: Nata Penaloza DATE: July 29, 2023 TIME: 7:14 AM CSN: [id number] [facility] 07-29-2023 [facility] Telephone (ELSI) NATA PENALOZA ([id number]) [birth year] F [facility] Date Time Provider Department 07/29/23 DELANEY [...] Encounter Status:Closed by DELANEY DURAND on 07/29/23 [facility] ANES PRE-OPon 07-28-2023 ANES PRE-OP HNO ID: [id number] Author: Rodri French APRN.BLENDING TANK TENDER HELPER Service: Anesthesiology Author Type: Nurse Oil Well Service Operator Helper Type: Anesthesia Preprocedure Evaluation Filed: 07/28/2023 2:38 AM Note Text: OB ANESTHESIA PRE-PROCEDURE ASSESSMENT PATIENT NAME: Nata Penaloza : 2000 [facility] ANES WOUND/OSTOMY CLINICAL NURSE SPECIALIST: Previous OB anesthetic: None No OB anesthesia [...] and consent discussed: yes. Patient / Responsible Republican agrees to proceed: yes Patient / Surrogate [...] 48 hours of Surgery/Procedure. SIGNATURE: Rodri French APRN.BLENDING TANK TENDER HELPER PATIENT NAME: Nata Penaloza DATE: July 28, 2023 TIME: 2:37 AM : 2000 [facility] LD NOTEon 07-28-2023 LD NOTE HNO ID: [id number] Author: An Azevedo MD Service: Obstetrics Author [...] Method: Misoprostol;Cervical Ripening Balloon (CRB);Oxytocin;AROM Ruben Penaloza [[id number]] Episiotomy/Laceration: Episiotomy: None Lacerations: 1st Perineal Repair [...] old year old female who presented to [facility] with Estimated Date of Delivery: 08/06/23 [...] the remainder of the 's body. The was crying spontaneously. Delayed cord clamping was performed until the cord stopped pulsing. The cord was then doubly clamped and cut and the infant was passed above for skin to skin. [...] July 28, 2023 TIME: 10:31 AM Normal [facility] CBC W Auto Differential pane l (Bld)on 07-27-2023 Basophils (Bld) [#/Vol] 0.03 10*3/uL Normal <0.11 [facility] Comment on above: Order Comment: Speci men Type: BLOOD SPECIMEN Ordering Facility: [facility] Address: [address] [place] [address] Performed By: #### 5 7021-8 #### [facility] CLIA [id number] [address] [place] [address] [place] Basophils/100 WBC (Bld) 0.3 % Normal [facility] Comment on above: Order Comment: Speci men Type: BLOOD SPECIMEN Ordering Facility: [facility] Address: [address] [place] [address] Performed By: #### 5 7021-8 #### [facility] CLIA [id number] [address] Differential cell count method Nom (Bld) Auto Normal [facility] Comment on above: Order Comment: Speci men Type: BLOOD SPECIMEN Ordering Facility: [facility] Address: [address] [place] [address] Performed By: #### 5 7021-8 #### [facility] CLIA [id number] [address] Eosinophils (Bld) [#/Vol] 0.03 10*3/uL Normal <0.46 [facility] Comment on above: Order Comment: Speci men Type: BLOOD SPECIMEN Ordering Facility: [facility] Address: [address] [place] [address] Performed By: #### 5 7021-8 #### [facility] CLIA [id number] [address] Eosinophils/100 WBC (Bld) 0.3 % Normal [facility] Comment on above: Order Comment: Speci men Type: BLOOD SPECIMEN Ordering Facility: [facility] Address: [address] [place] [address] Performed By: #### 5 7021-8 #### [facility] CLIA [id number] [address] Erythrocyte distribution width (RBC) [Ratio] 11.9 % Normal 11.5-15.0 [facility] Comment on above: Order Comment: Speci men Type: BLOOD SPECIMEN Ordering Facility: [facility] Address: [address] [place] [address] Performed By: #### 5 7021-8 #### [facility] CLIA [id number] [address] Hematocrit (Bld) [Volume fraction] 39.6 % Normal 36.0-46.0 [facility] Comment on above: Order Comment: Speci men Type: BLOOD SPECIMEN Ordering Facility: [facility] Address: [address] [place] [address] Performed By: #### 5 7021-8 #### [facility] CLIA [id number] [address] [place] Hemoglobin (Bld) [Mass/Vol] 13.8 g/dL Normal 11.5-15.5 [facility] Comment on above: Order Comment: Speci men Type: BLOOD SPECIMEN Ordering Facility: [facility] Address: [address] [place] [address] Performed By: #### 5 7021-8 #### [facility] CLIA [id number] [address] [place] Immature granulocytes (Bld) [#/Vol] 0.03 10*3/uL Normal <0.10 [facility] Comment on above: Order Comment: Speci men Type: BLOOD SPECIMEN Ordering Facility: [facility] Address: [address] [place] [address] Performed By: #### 5 7021-8 #### [facility] CLIA [id number] [address] [place] Immature granulocytes/100 WBC (Bld) 0.3 % Normal [facility] Comment on above: Order Comment: Speci men Type: BLOOD SPECIMEN Ordering Facility: [facility] Address: [address] [place] [address] Performed By: #### 5 7021-8 #### [facility] CLIA [id number] [address] [place] Lymphocytes (Bld) [#/Vol] 1.58 10*3/uL Normal 1.00-4.00 [facility] Comment on above: Order Comment: Speci men Type: BLOOD SPECIMEN Ordering Facility: [facility] Address: [address] [place] [address] Performed By: #### 5 7021-8 #### [facility] CLIA [id number] [address] [place] Lymphocytes/100 WBC (Bld) 16.7 % Normal [facility] Comment on above: Order Comment: Speci men Type: BLOOD SPECIMEN Ordering Facility: [facility] Address: [address] [place] [address] Performed By: #### 5 7021-8 #### [facility] CLIA [id number] [address] MCH (RBC) [Entitic mass] 29.9 pg Normal 26.0-34.0 [facility] Comment on above: Order Comment: Speci men Type: BLOOD SPECIMEN Ordering Facility: [facility] Address: [address] [place] [address] Performed By: #### 5 7021-8 #### [facility] CLIA [id number] [address] [place] MCHC (RBC) [Mass/Vol] 34.8 g/dL Normal 30.5-36.0 [facility] Comment on above: Order Comment: Speci men Type: BLOOD SPECIMEN Ordering Facility: [facility] Address: [address] [place] [address] Performed By: #### 5 7021-8 #### [facility] CLIA [id number] [address] MCV (RBC) [Entitic vol] 85.9 fL Normal 80.0-100.0 [facility] Comment on above: Order Comment: Speci men Type: BLOOD SPECIMEN Ordering Facility: [facility] Address: [address] [place] [address] Performed By: #### 5 7021-8 #### [facility] CLIA [id number] [address] [place] Monocytes (Bld) [#/Vol] 0.69 10*3/uL Normal <0.87 [facility] Comment on above: Order Comment: Speci men Type: BLOOD SPECIMEN Ordering Facility: [facility] Address: [address] [place] [address] Performed By: #### 5 7021-8 #### [facility] CLIA [id number] [address] Monocytes/100 WBC (Bld) 7.3 % Normal [facility] Comment on above: Order Comment: Speci men Type: BLOOD SPECIMEN Ordering Facility: [facility] Address: [address] [place] [address] Performed By: #### 5 7021-8 #### [facility] CLIA [id number] [address] [place] Neutrophils (Bld) [#/Vol] 7.08 10*3/uL Normal 1.45-7.50 [facility] Comment on above: Order Comment: Speci men Type: BLOOD SPECIMEN Ordering Facility: [facility] Address: [address] [place] [address] Performed By: #### 5 7021-8 #### [facility] CLIA [id number] [address] Neutrophils/100 WBC (Bld) 75.1 % Normal [facility] Comment on above: Order Comment: Speci men Type: BLOOD SPECIMEN Ordering Facility: [facility] Address: [address] [place] [address] Performed By: #### 5 7021-8 #### [facility] CLIA [id number] [address] [place] Nucleated RBC (Bld) [#/Vol] 10*3/uL Normal <0.01 [facility] Comment on above: Order Comment: Speci men Type: BLOOD SPECIMEN Order[facility] Facility[facility] Address: [address] [place] [address] Performed By: #### 5 7021-8 #### [facility] CLIA [id number] [address] Nucleated RBC/100 WBC (Bld) [Ratio] 0.0 /100 WBC Normal [facility] Comment on above: Order Comment: Speci men Type: BLOOD SPECIMEN Order[facility] Facility: [facility] Address: [address] [place] [address] Performed By: #### 5 7021-8 #### [facility] CLIA [id number] [address] [place] Platelet mean volume (Bld) [Entitic vol] 12.3 fL Normal 9.0-12.7 [facility] Comment on above: Order Comment: Speci men Type: BLOOD SPECIMEN Order[facility] Address: [address] [place] [address] Performed By: #### 5 7021-8 #### [facility] CLIA [id number] [address] OF [facility] Platelets (Bld) [#/Vol] 215 10*3/uL Normal 150-400 [facility] Comment on above: Order Comment: Speci men Type: BLOOD SPECIMEN Order[facility] Address: [address] [place] [address] Performed By: #### 5 7021-8 #### [facility] CLIA [id number] [address] OF [facility] RBC (Bld) [#/Vol] 4.61 10*6/uL Normal 3.90-5.20 [facility] Comment on above: Order Comment: Speci men Type: BLOOD SPECIMEN Order[facility] Address: [address] [place] [address] Performed By: #### 5 7021-8 #### [facility] CLIA [id number] [address] OF [facility] WBC (Bld) [#/Vol] 9.44 10*3/uL Normal 3.70-11.00 [facility] Comment on above: Order Comment: Speci men Type: BLOOD SPECIMEN Order[facility] Address: [address] [place] [address] Performed By: #### 5 7021-8 #### [facility] CLIA [id number] [address] [place] Comprehensive metabolic 2000 panelon 07-27-2023 Albumin [Mass/Vol] 3.7 g/dL Low 3.9-4.9 [facility] Comment on above: Order Comment: Speci men Type: BLOOD SPECIMENOrdering Facility: [facility] Address: [address] [place] [address] Performed By: #### 2 4323-8 ####[facility] [id number] [place] [address] [place] ALP [Catalytic activity/Vol] 251 U/L High 34-123 [facility] Comment on above: Order Comment: Speci men Type: BLOOD SPECIMENOrdering Facility: [facility] Address: [address] [place] [address] Performed By: #### 2 4323-8 ####[facility] [id number] [place] [address] [place] ALT With P-5'-P [Catalytic activity/Vol] 16 U/L Normal 7-38 [facility] Comment on above: Order Comment: Speci men Type: BLOOD SPECIMENOrdering Facility: [facility] Address: [address] [place] [address] Performed By: #### 2 4323-8 ####[facility]IA [id number] [address] [place] [facility] Anion gap [Moles/Vol] 12 mmol/L Normal 9-18 [facility] Comment on above: Order Comment: Speci men Type: BLOOD SPECIMENOrdering Facility: [facility] Address: [address] [place] [address] Performed By: #### 2 4323-8 ####[facility]IA [id number] [address] [place] AST With P-5'-P [Catalytic activity/Vol] 21 U/L Normal 13-35 [facility] Comment on above: Order Comment: Speci men Type: BLOOD SPECIMENOrdering Facility: [facility] Address: [address] [place] [address] Performed By: #### 2 4323-8 ####[facility]IA [id number] [address] [place] Bilirubin [Mass/Vol] 0.2 mg/dL Normal 0.2-1.3 [facility] Comment on above: Order Comment: Speci men Type: BLOOD SPECIMENOrdering Facility: [facility] Address: [address] [place] [address] Performed By: #### 2 4323-8 ####[facility]ORYCLIA [id number] [place] [address] [place] Calcium [Mass/Vol] 9.1 mg/dL Normal 8.5-10.2 [facility] Comment on above: Order Comment: Speci men Type: BLOOD SPECIMENOrdering Facility: [facility] Address: [address] [place] [address] Performed By: #### 2 4323-8 ####[facility]ORYCLIA [id number] [place] [address] [place] Chloride [Moles/Vol] 104 mmol/L Normal 97-105 [facility] Comment on above: Order Comment: Speci men Type: BLOOD SPECIMENOrdering Facility: [facility] Address: [address] [place] [address] Performed By: #### 2 4323-8 ####[facility]ORYCLIA [id number] [place] [address] [place] CO2 [Moles/Vol] 21 mmol/L Low 22-30 [facility] Comment on above: Order Comment: Speci men Type: BLOOD SPECIMENOrdering Facility: [facility] Address: [address] [place] [address] Performed By: #### 2 4323-8 ####[facility] [id number] [address] [place] Creatinine [Mass/Vol] 0.58 mg/dL Normal 0.58-0.96 [facility] Comment on above: Order Comment: Speci men Type: BLOOD SPECIMENOrdering Facility: [facility] Address: [address] [place] [address] Performed By: #### 2 4323-8 ####[facility]CLIA [id number] [address] Creatinine and Glomerular filtration rate.predicted panel (S/P/Bld) 133 mL/min/1.73m??? Normal >=60 [facility] Comment on above: Order Comment: Speci men Type: BLOOD SPECIMENOrdering Facility: [facility] Address: [address] [place] [address] Result Comment: Isela mated Glomerular Filtration Rate [...] actual GFR. Performed By: #### 2 4323-8 ####[facility]ORYCLIA [id number] [place] [address] [place] Glucose [Mass/Vol] 88 mg/dL Normal 74-99 [facility] Comment on above: Order Comment: Speci men Type: BLOOD SPECIMENOrdering Facility: [facility] Address: [address] [place] [address] Result Comment: The [place] [employer] (ADA) provides guidance for cutoff [...] Standards of Medical Care in Diabetes 2016, [place] [employer]. Diabetes Care. 2016.39(Suppl 1). Performed By: #### 2 4323-8 ####[facility]ORYCLIA [id number] [place] [id number] [place] Potassium [Moles/Vol] 3.8 mmol/L Normal 3.7-5.1 [facility] Comment on above: Order Comment: Speci men Type: BLOOD SPECIMENOrdering Facility: [facility] Address: [address] [place] [address] Performed By: #### 2 4323-8 ####[facility]ORYCLIA [id number] [place] [id number] [place] Protein [Mass/Vol] 6.5 g/dL Normal 6.3-8.0 [facility] Comment on above: Order Comment: Wiley escobedo Type: BLOOD SPECIMENOrdering Facility: [facility] Address: [address] [place] [address] Performed By: #### 2 4323-8 ####[facility]ORYCLIA [id number] [place] [id number] [facility] Sodium [Moles/Vol] 137 mmol/L Normal 136-144 [facility] Comment on above: Order Comment: Ousmanejessy escobedo Type: BLOOD SPECIMENOrdering Facility: [facility] Address: [address] [place] [address] Performed By: #### 2 4323-8 ####[facility]ORYCLIA [id number] [address] Urea nitrogen [Mass/Vol] 13 mg/dL Normal 7-21 [facility] Comment on above: Order Comment: Specjessy escobedo Type: BLOOD SPECIMENOrdering Facility: [facility] Address: [address] [place] [address] Performed By: #### 2 4323-8 ####[facility]ORYCLIA [id number] [address] OF [facility] HISTORY PHYSICALon HISTORY PHYSICAL HNO ID: [id number] Author: Leelee Saini MD Service: Obstetrics Author [...] position: cephalic, (more content not included)... Normal [facility] TYPE + SCREEN PRENATALon ABO B Normal [facility] Comment on above: Order Comment: Speci men Type: BLOOD SPECIMENOrdering Facility: [facility] Address: [address] [place] [address] Performed By: #### T SPN ####[facility]CL[facility] [id number] [address] HISTORICAL AB SCR STATUS Negative Normal [facility] Comment on above: Order Comment: Speci men Type: BLOOD SPECIMENOrdering Facility: [facility] Address: [address] [place] [address] Performed By: #### T SPN ####[facility]CL[facility] [id number] [address] Rh Nom (Bld) Positive Normal [facility] Comment on above: Order Comment: Speci men Type: BLOOD SPECIMENOrdering Facility: [facility] Address: [address] [place] [address] Performed By: #### T SPN ####[facility]CL[facility] [id number] [address] TYPE AND SCREEN EXPIRATION 07/30/2023 23:59 Normal [facility] Comment on above: Order Comment: Speci men Type: BLOOD SPECIMENOrdering Facility: [facility] Address: [address] [place] [address] Performed By: #### T SPN ####[facility]CL[facility] [id number] [address] CBC panel Auto (Bld)on 07-26 Erythrocyte distribution width (RBC) [Ratio] 11.9 % Normal 11.5-15.0 [facility] Comment on above: Order Comment: Speci men Type: BLOOD SPECIMEN [facility] Address: [address] [place] [address] Performed By: #### 5 8410-2 #### [facility] CLIA [id number] [address] Hematocrit (Bld) [Volume fraction] 39.1 % Normal 36.0-46.0 [facility] Comment on above: Order Comment: Speci men Type: BLOOD SPECIMEN [facility] Address: [address] [place] [address] Performed By: #### 5 8410-2 #### [facility] CLIA [id number] [address] Hemoglobin (Bld) [Mass/Vol] 13.8 g/dL Normal 11.5-15.5 [facility] Comment on above: Order Comment: Speci men Type: BLOOD SPECIMEN [facility] Address: [address] [place] [address] Performed By: #### 5 8410-2 #### [facility] CLIA [id number] [address] MCH (RBC) [Entitic mass] 30.3 pg Normal 26.0-34.0 [facility] Comment on above: Order Comment: Speci men Type: BLOOD SPECIMEN [facility] Address: [address] [place] [address] Performed By: #### 5 8410-2 #### [facility] CLIA [id number] [address] [place] MCHC (RBC) [Mass/Vol] 35.3 g/dL Normal 30.5-36.0 [facility] Comment on above: Order Comment: Speci men Type: BLOOD SPECIMEN [facility] Address: [address] [place] [address] Performed By: #### 5 8410-2 #### [facility] CLIA [id number] [address] MCV (RBC) [Entitic vol] 85.7 fL Normal 80.0-100.0 [facility] Comment on above: Order Comment: Speci men Type: BLOOD SPECIMEN [facility] Address: [address] [place] [address] Performed By: #### 5 8410-2 #### [facility] CLIA [id number] [address] [place] Nucleated RBC (Bld) [#/Vol] 10*3/uL Normal <0.01 [facility] Comment on above: Order Comment: Speci men Type: BLOOD SPECIMEN [facility] Address: [address] [place] [address] Performed By: #### 5 8410-2 #### [facility] CLIA [id number] [address] STATES [place] Platelet mean volume (Bld) [Entitic vol] 12.3 fL Normal 9.0-12.7 [facility] Comment on above: Order Comment: Speci men Type: BLOOD SPECIMEN Ordering Facility: [facility] Address: [address] [place] [address] Performed By: #### 5 8410-2 #### [facility] CLIA [id number] [address] [place] Platelets (Bld) [#/Vol] 211 10*3/uL Normal 150-400 [facility] Comment on above: Order Comment: Speci men Type: BLOOD SPECIMEN Ordering Facility: [facility] Address: [address] [place] [address] Performed By: #### 5 8410-2 #### [facility] CLIA [id number] [address] [place] RBC (Bld) [#/Vol] 4.56 10*6/uL Normal 3.90-5.20 [facility] Comment on above: Order Comment: Speci men Type: BLOOD SPECIMEN Ordering Facility: [facility] Address: [address] [place] [address] Performed By: #### 5 8410-2 #### [facility] CLIA [id number] [address] [place] WBC (Bld) [#/Vol] 11.02 10*3/uL High 3.70-11.00 [facility] Comment on above: Order Comment: Speci men Type: BLOOD SPECIMEN Ordering Facility: [facility] Address: [address] [place] [address] Performed By: #### 5 8410-2 #### [facility] CLIA [id number] [address] OF [facility] Comprehensive metabolic 2000 panelon 07-26-2023 Albumin [Mass/Vol] 3.7 g/dL Low 3.9-4.9 [facility] Comment on above: Order Comment: Speci men Type: BLOOD SPECIMEN Ordering Facility: [facility] Address: [address] [place] [address] Performed By: #### 2 4323-8 #### [facility] CLIA [id number] [address] STATES OF [facility] ALP [Catalytic activity/Vol] 247 U/L High 34-123 [facility] Comment on above: Order Comment: Speci men Type: BLOOD SPECIMEN Ordering Facility: [facility] Address: [address] [place] [address] Performed By: #### 2 4323-8 #### [facility] CLIA [id number] [address] ALT With P-5'-P [Catalytic activity/Vol] 15 U/L Normal 7-38 [facility] Comment on above: Order Comment: Speci men Type: BLOOD SPECIMEN Ordering Facility: [facility] Address: [address] [place] [address] Performed By: #### 2 4323-8 #### [facility] CLIA [id number] [address] Anion gap [Moles/Vol] 14 mmol/L Normal 9-18 [facility] Comment on above: Order Comment: Speci men Type: BLOOD SPECIMEN Ordering Facility: [facility] Address: [address] [place] [address] Performed By: #### 2 4323-8 #### [facility] CLIA [id number] [address] STATES OF [facility] AST With P-5'-P [Catalytic activity/Vol] 19 U/L Normal 13-35 [facility] Comment on above: Order Comment: Speci men Type: BLOOD SPECIMEN Ordering Facility: [facility] Address: [address] [place] [address] Performed By: #### 2 4323-8 #### [facility] CLIA [id number] [address] [place] Bilirubin [Mass/Vol] 0.2 mg/dL Normal 0.2-1.3 [facility] Comment on above: Order Comment: Speci men Type: BLOOD SPECIMEN [facility] Address: [address] [place] [address] Performed By: #### 2 4323-8 #### [facility] CLIA [id number] [address] [place] Calcium [Mass/Vol] 9.0 mg/dL Normal 8.5-10.2 [facility] Comment on above: Order Comment: Speci men Type: BLOOD SPECIMEN [facility] Address: [address] [place] [address] Performed By: #### 2 4323-8 #### [facility] CLIA [id number] [address] [place] Chloride [Moles/Vol] 101 mmol/L Normal 97-105 [facility] Comment on above: Order Comment: Speci men Type: BLOOD SPECIMEN Ordering Facility[facility] Address: [address] [place] [address] Performed By: #### 2 4323-8 #### [facility] CLIA [id number] [address] [place] CO2 [Moles/Vol] 20 mmol/L Low 22-30 [facility] Comment on above: Order Comment: Speci men Type: BLOOD SPECIMEN Ordering Facility: [facility] Address: [address] [place] [address] Performed By: #### 2 4323-8 #### [facility] CLIA [id number] [address] Creatinine [Mass/Vol] 0.54 mg/dL Low 0.58-0.96 [facility] Comment on above: Order Comment: Wiley fanny Type: BLOOD SPECIMEN [facility] Address: [address] [place] [address] Performed By: #### 2 4323-8 #### [facility] CLIA [id number] [address] Creatinine and Glomerular filtration rate.predicted panel (S/P/Bld) 135 mL/min/1.73m??? Normal >=60 [facility] Comment on above: Order Comment: Wiley fanny Type: BLOOD SPECIMEN Order[facility] Address: [address] [place] [address] Result Comment: Isela mated Glomerular Filtration Rate [...] GFR. Performed By: #### 2 4323-8 #### [facility] CLIA [id number] [address] Glucose [Mass/Vol] 71 mg/dL Low 74-99 [facility] Comment on above: Order Comment: Wiley fanny Type: BLOOD SPECIMEN Order[facility] Address: [address] [place] [address] Result Comment: The [place] Diabetes Association (ADA) provides guidance for cutoff [...] Standards of Medical Care in Diabetes 2016, [place] [employer]. Diabetes Care. 2016.39(Suppl 1). Performed By: #### 2 4323-8 #### [facility] CLIA [id number] [address] [place] Potassium [Moles/Vol] 3.7 mmol/L Normal 3.7-5.1 [facility] Comment on above: Order Comment: Speci men Type: BLOOD SPECIMEN Order[facility] Address: [address] [place] [address] Performed By: #### 2 4323-8 #### [facility] CLIA [id number] [address] [place] Protein [Mass/Vol] 6.8 g/dL Normal 6.3-8.0 [facility] Comment on above: Order Comment: Speci men Type: BLOOD SPECIMEN Order[facility] Address: [address] [place] [address] Performed By: #### 2 4323-8 #### [facility] CLIA [id number] [address] [place] Sodium [Moles/Vol] 135 mmol/L Low 136-144 [facility] Comment on above: Order Comment: Speci men Type: BLOOD SPECIMEN Order[facility] Address: [address] [place] [address] Performed By: #### 2 4323-8 #### [facility] CLIA [id number] [address] [place] Urea nitrogen [Mass/Vol] 13 mg/dL Normal 7-21 [facility] Comment on above: Order Comment: Speci men Type: BLOOD SPECIMEN Ordering Facility[facility] Address: [address] [place] [address] Performed By: #### 2 4323-8 #### [facility] CLIA [id number] 1 [place] [address] [place] Prot/Creat Uron 07-26-2023 Protein/Creatinine (U) [Mass ratio] 0.11 mg/mg Normal <0.15 [facility] Comment on above: Order Comment: Speci men Type: URINE SPECIMEN Order[facility] Address: [address] [place] [address] Result Comment: Adul t Proteinuria Categories: <0.15 mg/mg is considered normal to mildly increased 0.15 - 0.50 mg/mg is considered moderately increased >0.50 mg/mg is considered severely increased KDIGO. (2013). KDIGO 2012 Clinical Practice Guideline for the Evaluation and Management of Chronic Kidney Disease. Official Journal of the International Society of Nephrology, 3(1), 1-150. Performed By: #### 2 890-2 #### [facility] CLIA [id number] [address] [place] Protein/Creatinine (U) [Mass ratio]on 07-26-2023 Creatinine (U) [Mass/Vol] 56.9 mg/dL Normal 42.2-237.9 [facility] Comment on above: Order Comment: Speci men Type: URINE SPECIMEN Order[facility] Address: [address] [place] [address] Performed By: #### 2 890-2 #### [facility] CLIA [id number] [address] [place] Protein (U) [Mass/Vol] 6 mg/dL Normal 0-20 [facility] Comment on above: Order Comment: Speci men Type: URINE SPECIMEN Order[facility] Address: [address] [place] [address] Performed By: #### 2 890-2 #### [facility] CLIA [id number] [address] [place] Prot/Creat Uron 07-23-2023 Protein/Creatinine (U) [Mass ratio] 0.10 mg/mg Normal <0.15 [facility] Comment on above: Order Comment: Speci men Type: URINE SPECIMEN Ordering [facility] Address: [address] [place] [address] Result Comment: Adul t Proteinuria Categories: <0.15 mg/mg is considered normal to mildly increased 0.15 - 0.50 mg/mg is considered moderately increased >0.50 mg/mg is considered severely increased KDIGO. (2013). KDIGO 2012 Clinical Practice Guideline for the Evaluation and Management of Chronic Kidney Disease. Official Journal of the International Society of Nephrology, 3(1), 1-150. Performed By: #### 2 890-2 #### [facility] CLIA [id number] [address] [place] [address] [place] Protein/Creatinine (U) [Mass ratio]on 07-23-2023 Creatinine (U) [Mass/Vol] 420.4 mg/dL High 20.0-300.0 [facility] Comment on above: Order Comment: Speci men Type: URINE SPECIMEN Order[facility] Address: [address] [place] [address] Performed By: #### 2 890-2 #### [facility] CLIA [id number] [address] [place] [address] [place] Protein (U) [Mass/Vol] 41 mg/dL High 0-20 [facility] Comment on above: Order Comment: Speci men Type: URINE SPECIMEN Order[facility] Address: [address] [place] [address] Performed By: #### 2 890-2 #### [facility] CLIA [id number] [address] [place], [place] [id number] [place] URINE OB DIP B/Oon 3 Glucose Ql (U) Negative Neg mg/dL [facility] Protein.monoclonal (U) [Mass/Vol] 30 mg/dL Abnormal Neg mg/dL [facility] URINE OB DIP B/Oon 3 Glucose Ql (U) Negative Neg mg/dL [facility] Protein.monoclonal (U) [Mass/Vol] Trace Neg mg/dL [facility] URINE OB DIP B/Oon Glucose Ql (U) Negative Neg mg/dL [facility] Protein.monoclonal (U) [Mass/Vol] Negative Neg mg/dL [facility] Reagin and Treponema pallidu m IgG and IgM [Interp]on 06-26-2023 T. pallidum IgG+IgM IA Ql (S) Non-Reactive Nonreactive [facility] SYPHILIS TOTAL W/REFLEXon Reagin and Treponema pallidum IgG and IgM [Interp] Cannot exclude recent Treponemal infection if specimen collected within 7-10 days after appearance of suspect lesions or 2-3 weeks after an exposure. Clinical correlation is required. [facility] CBC panel Auto (Bld)on 06-25 Erythrocyte distribution width (RBC) [Ratio] 12.2 % 11.5 - 15.0 % [facility] Hematocrit (Bld) [Volume fraction] 36.0 % 36.0 - 46.0 % [facility] Hemoglobin (Bld) [Mass/Vol] 13.1 g/dL 11.5 - 15.5 g/dL [facility] MCH (RBC) [Entitic mass] 31.3 pg 26.0 - 34.0 pg [facility] MCHC (RBC) [Mass/Vol] 36.4 g/dL High 30.5 - 36.0 g/dL [facility] MCV (RBC) [Entitic vol] 85.9 fL 80.0 - 100.0 fL [facility] Nucleated RBC (Bld) [#/Vol] <0.01 k/uL [facility] Platelet mean volume (Bld) [Entitic vol] 11.7 fL 9.0 - 12.7 fL [facility] Platelets (Bld) [#/Vol] 208 10*3/uL 150 - 400 k/uL [facility] RBC (Bld) [#/Vol] 4.19 10*6/uL 3.90 - 5.20 m/uL [facility] WBC (Bld) [#/Vol] 9.19 10*3/uL 3.70 - 11.00 k/u L [facility] Comprehensive metabolic 2000 panelon 06-25-2023 Albumin [Mass/Vol] 3.5 g/dL Low 3.9 - 4.9 g/dL [facility] ALP [Catalytic activity/Vol] 160 U/L High 34 - 123 U/L [facility] ALT [Catalytic activity/Vol] 22 U/L 7 - 38 U/L [facility] Anion gap [Moles/Vol] 14 mmol/L 9 - 18 mmol/L [facility] AST [Catalytic activity/Vol] 18 U/L 13 - 35 U/L [facility] Bilirubin [Mass/Vol] 0.2 mg/dL 0.2 - 1.3 mg/dL [facility] Calcium [Mass/Vol] 8.7 mg/dL 8.5 - 10.2 mg/dL [facility] Chloride [Moles/Vol] 103 mmol/L 97 - 105 mmol/L [facility] CO2 [Moles/Vol] 21 mmol/L Low 22 - 30 mmol/L [facility] Creatinine [Mass/Vol] 0.53 mg/dL Low 0.58 - 0.96 mg/dL [facility] Estimated Glomerular Filtration Rate 136 mL/min/1.73m >=60 mL/min/1.73m [facility] Glucose [Mass/Vol] 124 mg/dL High 74 - 99 mg/dL [facility] Potassium [Moles/Vol] 3.5 mmol/L Low 3.7 - 5.1 mmol/L [facility] Protein [Mass/Vol] 6.2 g/dL Low 6.3 - 8.0 g/dL [facility] Sodium [Moles/Vol] 138 mmol/L 136 - 144 mmol/L [facility] Urea nitrogen [Mass/Vol] 9 mg/dL 7 - 21 mg/dL [facility] URINE OB DIP B/Oon 3 Glucose Ql (U) Negative Neg mg/dL [facility] Protein.monoclonal (U) [Mass/Vol] TRACE Abnormal Neg mg/dL [facility] STREP A MOLECULAR (POC)on Procedural Control Valid [facility] Strep A (POCT) Negative Negative [facility] URINE OB DIP B/Oon 3 Glucose Ql (U) Negative Neg mg/dL [facility] Protein.monoclonal (U) [Mass/Vol] Negative Neg mg/dL [facility] COVID NAAT, ROUTINEon 2022 SARS-CoV-2 (COVID-19) RNA TESS+probe Ql (Resp) Not detected See comment [facility] ROUTINE FLU A/B + RSVon 05-04 FLUAV RNA TESS+probe Ql (Unsp spec) Not detected Not Detected [facility] FLUBV RNA TESS+probe Ql (Unsp spec) Not detected Not Detected [facility] RSV A RNA TESS+probe Ql (Unsp spec) Not detected Not Detected [facility] STREP A MOLECULAR (POC)on Procedural Control Valid [facility] Strep A (POCT) Negative Negative [facility] URINE OB DIP B/Oon 3 Glucose Ql (U) Negative Neg mg/dL [facility] Protein.monoclonal (U) [Mass/Vol] Negative Neg mg/dL [facility] OBSTETRIC ULTRASOUND WHIon 0 03-19-2023 [facility] URINE OB DIP B/Oon 3 Glucose Ql (U) Negative Neg mg/dL [facility] Protein.monoclonal (U) [Mass/Vol] Negative Neg mg/dL [facility] [id number] PLUSon 01-25-2023 Cell-free DNA./Cell-free DNA.total Dosage of chromosome-specific cfDNA (cfDNA) [Molar fraction] 6% Normal [facility] Comment on above: Order Comment: Speci men Type: BLOOD SPECIMEN [facility] Address: [address] [address] Performed By: #### M AT21 #### [email or web address] CLIA [id number] [facility] [place] [address] Chr 13+18+21+X+Y aneuploidy Dosage of chromosome-specific cfDNA Ql (cfDNA) Negative Normal [facility] Comment on above: Order Comment: Speci men Type: BLOOD SPECIMEN [facility] Address: [address] [address] Performed By: #### M AT21 #### [facility] CLIA [id number] [address] [place] [address] Chr 21 trisomy Dosage of chromosome-specific cfDNA Ql (cfDNA) Negative Normal [facility] Comment on above: Order Comment: Speci men Type: BLOOD SPECIMEN Order[facility] Address: [address] [address] Performed By: #### M AT21 #### [facility] CLIA [id number] [address] [place] [address] Chr X and Y aneuploidy risk Sequencing Ql (cfDNA) [Interp] Not detected [facility] Comment on above: Order Comment: Speci men Type: BLOOD SPECIMEN [facility] Address: [address] [address] Result Comment: Not Detected Not Detected Performed By: #### M AT21 #### [facility] CLIA [id number] [address] [place] [address] Citation Andrew (Reference lab test) Comment Normal [facility] Comment on above: Order Comment: Speci men Type: BLOOD SPECIMEN [facility] Address: [address] [address] Result Comment: 1. P lazaro KELLER et al. Ana Med. 2012;14(3):296-305. 2. Cherelle MAGANA, et al. Prenat Diag. 2013;33(6):591-597. 3. Mohit C, et al. Clin Chem. 2015 Apr;61(4):608-616. 4. Jax KELLER, et al. Ana Med. 2011;13(11):913-920. 5. ACOG/SMFM Practice Bulletin No. 226, Jul 2020. Performed By: #### M AT21 #### [facility] CLIA [id number] [address] [place] [address] Gestational age Estimated from conception date Senior Normal [facility] Comment on above: Order Comment: Speci men Type: BLOOD SPECIMEN [facility] Address: [address] [address] Performed By: #### M AT21 #### [facility] CLIA [id number] [address] [id number] GESTATIONALAGE AGE > OR = 9W Yes [facility] Comment on above: Order Comment: Speci men Type: BLOOD SPECIMEN [facility] Address: [address] [address] Performed By: #### M AT21 #### [facility] CLIA [id number] [address] [place] [address] Laboratory comment Andrew (Report) Comment [facility] Comment on above: Order Comment: Wiley escobedo Type: BLOOD SPECIMEN [facility] Address: [address] [place] [address] Result Comment: The MaterniT(R) 21 PLUS laboratory-developed test (LDT) analyzes circulating cell-free DNA from a maternal blood sample. This test is used for screening purposes and not diagnostic. Clinical correlation is recommended. Validation data on twin pregnancies is limited and the ability of this test to detect aneuploidy in higher multiple gestations has not yet been validated. Performed By: #### M AT21 #### [facility] CLIA [id number] [address] [id number] global director air and climate change name Nom (Provider) Comment [facility] Comment on above: Order Comment: Wiley escobedo Type: BLOOD SPECIMEN [facility] Address: [address] [place] [address] Result Comment: This specimen showed an expected representation of chromosome 21, 18 and 13 material. Clinical correlation is suggested. Comment Jorge Bhatti MD, PhD, Director, [employer] Performed By: #### M AT21 #### [facility] CLIA [id number] [address] [place] [address] LIMITATIONS OF THE TEST Comment [facility] Comment on above: Order Comment: Wiley escobedo Type: BLOOD SPECIMEN [facility] Address: [address] [place] [address] Result Comment: Jeffry vanessa the results of [...] Fragmin(R)). Performed By: #### M AT21 #### [facility] CLIA [id number] [address] [place] [address] Monosomy X risk Dosage of chromosome-specific cfDNA Ql (Plasma cell-free+WBC DNA) [Interp] Not detected Normal [facility] Comment on above: Order Comment: Wiley escobedo Type: BLOOD SPECIMEN Order[facility] Facility[facility] Address: [place] [address] Performed By: #### M AT21 #### [facility] CLIA [id number] [address] [place] [address] NEGATIVE PREDICTIVE VALUE Note Normal [facility] Comment on above: Order Comment: Speci men Type: BLOOD SPECIMEN [facility] Address: [address] [id number] Result Comment: The Negative Predictive Value (NPV) for trisomy 21, 18, and 13 is greater than 99%. The NPV for SCA and ESS cannot be calculated as SCA and ESS are only reported when an abnormality is detected. Performed By: #### M AT21 #### [email or web address] CLIA [id number] [address] [place] [address] NOTE Comment Normal [facility] Comment on above: Order Comment: Type: BLOOD SPECIMEN [facility] Address: [address] [id number] Result Comment: See Notes [employer]. is a subsidiary of [employer], using the brand [employer]. This test was developed and its performance characteristics determined by [employer]. It has not been cleared or approved by the Food and Drug Administration. This laboratory is certified under the Clinical Laboratory Improvement Amendments (CLIA) as qualified to perform high complexity clinical laboratory testing and accredited by the [employer] [place] [employer] (CAP). If there is future clinical need for adding MaterniT GENOME testing, this specimen will be available until term. [facility] samples will not be retained beyond 60 days. [facility] patients will have to send a new sample for re-sequencing ([facility] Test Code: [id number]). Performed By: #### M AT21 #### [facility] CLIA [id number] [address] [place] [address] PERFORMANCE CHARACTERISTICS Note [facility] Comment on above: Order Comment: Type: BLOOD SPECIMEN [facility] Address: [address] [place] [address] Result Comment: ! Sex ! Accuracy: 99.4% [...] ! ! ! * As reported in [facility] database nstd37 [https://www.ncbi.nlm.nih.gov/dbvar/studies/nstd37/ ] # Estimated [...] only. Performed By: #### M AT21 #### [facility] CLIA [id number] [address] [place] [address] POSITIVE PREDICTIVE VALUE N/A [facility] Comment on above: Order Comment: Speci men Type: BLOOD SPECIMEN [facility] Address: [address] [place] [address] Performed By: #### M AT21 #### [facility] CLIA [id number] [address] [place] [address] Reference Lab Test Method Comment [facility] Comment on above: Order Comment: Speci men Type: BLOOD SPECIMEN [facility] Address: [address] [place] [address] Result Comment: See Notes Circulating cell-free DNA [...] 22. Performed By: #### M AT21 #### [facility] CLIA [id number] [address] [place] [address] Sex Dosage of chromosome-specific cfDNA Nom (cfDNA) Comment [facility] Comment on above: Order Comment: Speci men Type: BLOOD SPECIMEN [facility] Address: [address] [place] [address] Result Comment: Cons istent with Male Performed By: #### M AT21 #### [facility] CLIA [id number] [address] [place] [address] Test performance information Andrew (Unsp spec) Comment [facility] Comment on above: Order Comment: Wiley escobedo Type: BLOOD SPECIMEN [facility] Address: [address] [place] [address] Result Comment: The performance characteristics of the MaterniT(R) 21 PLUS laboratory-developed test (LDT) have been determined in a clinical validation study with women at increased risk for chromosomal aneuploidy.[1-4] Performed By: #### M AT21 #### [email or web address] CLIA [id number] [address] [place] [address] Trisomy 13 risk Dosage of chromosome-specific cfDNA Ql (cfDNA) [Interp] Negative Normal [facility] Comment on above: Order Comment: Wiley escobedo Type: BLOOD SPECIMEN Ordering Facility: [facility] Address: [address] [place] [address] Performed By: #### M AT21 #### [facility] CLIA [id number] [address] [place] [id number] Trisomy 18 risk Dosage of chromosome-specific cfDNA Ql (Plasma cell-free+WBC DNA) [Interp] Negative Normal [facility] Comment on above: Order Comment: Wiley escobedo Type: BLOOD SPECIMEN Ordering Facility: [facility] Address: [address] [place] [address] Performed By: #### M AT21 #### [facility] CLIA [id number] [address] [place] [address] URINE CULTUREon 12-26-2022 Bacteria identified Cx Nom (U) 50,000-<100,000 CFU/ml Normal urogenital kathy [facility] C. trachomatis+N. gonorrhoea e DNA TESS+probe Ql (U)on 12-25-2022 C. trachomatis DNA TESS+probe Ql (Unsp spec) Negative Negative for Chlamydia trachomatis by amplificaton [facility] N. gonorrhoeae DNA TESS+probe Ql (Unsp spec) Negative Negative for Neisseria gonorrhoeae by amplification [facility] CBC panel Auto (Bld)on 12-25 Erythrocyte distribution width (RBC) [Ratio] 12.0 % 11.5 - 15.0 % [facility] Hematocrit (Bld) [Volume fraction] 42.7 % 36.0 - 46.0 % [facility] Hemoglobin (Bld) [Mass/Vol] 14.6 g/dL 11.5 - 15.5 g/dL [facility] MCH (RBC) [Entitic mass] 29.5 pg 26.0 - 34.0 pg [facility] MCHC (RBC) [Mass/Vol] 34.2 g/dL 30.5 - 36.0 g/dL [facility] MCV (RBC) [Entitic vol] 86.3 fL 80.0 - 100.0 fL [facility] Nucleated RBC (Bld) [#/Vol] <0.01 k/uL [facility] Platelet mean volume (Bld) [Entitic vol] 11.1 fL 9.0 - 12.7 fL [facility] Platelets (Bld) [#/Vol] 226 10*3/uL 150 - 400 k/uL [facility] RBC (Bld) [#/Vol] 4.95 10*6/uL 3.90 - 5.20 m/uL [facility] WBC (Bld) [#/Vol] 8.70 10*3/uL 3.70 - 11.00 k/u L [facility] HEP B SURF AG [facility] 023 HBV surface Ag Ql (S) Negative Negative [facility] HEP C AB IA W/CONF [facility] HCV Ab Ql (S) Negative Negative [facility] HIV 1+2 Ab IA Qlon HIV 1 and 2 Ab IA.rapid Nom [facility] HIV 1+2 Ab+HIV1 p24 Ag IA Ql Non-Reactive Nonreactive [facility] HIV Interpretation [facility] RUBELLA IGG ABon 12-25-2022 Rubella IgG, Qual Positive Positive [facility] Reagin and Treponema pallidu m IgG and IgM [Interp]on 12-25-2022 Syphilis Interpretation Cannot exclude recent Treponemal infection if specimen collected within 7-10 days after appearance of suspect lesions or 2-3 weeks after an exposure. Clinical correlation is required. [facility] T. pallidum IgG+IgM IA Ql (S) Non-Reactive Nonreactive [facility] TSH BLDon 12-25-2022 TSH Qn 0.951 m[IU]/L 0.510 - 4.300 mIU/L [facility] TYPE + SCREEN PRENATALon ABO B [facility] HIstorical Ab Scr Status Negative [facility] Rh Nom (Bld) Positive [facility] Type and Screen Expiration 12/28/2022 23:59 [facility] URINE OB DIP B/Oon Glucose Ql (U) Negative Neg mg/dL [facility] Protein.monoclonal (U) [Mass/Vol] Negative Neg mg/dL [facility] HCG QUAL UR B/Oon 11-30-2022 status Positive neg - pos [facility] Quality Check Yes [facility] CNPNon 11-10-2022 [facility] N[facility] PENALO[facility] ( ) 02 F [facility] Date Time Provider Department 11/10/22 WESLEY RODRÍGUEZ [facility] During your visit today, we recorded the following information about you: Wesley Rodríguez [facility] 11/10/2022 9:35 AM Signed I called Nata [...] Encounter Status:Closed by WESLEY RODRÍGUEZ on 11/10/22 [facility] URINE CULTUREon 10-04-2022 Bacteria identified Cx Nom (U) >=100,000 CFU/ml Normal urogenital kathy [facility] BACTERIAL VAGINOSIS AMPLIFIC ATIONon 10-03-2022 Lactobacillus crispatus+gasseri+j ensenii + Gardnerella vaginalis + Atopobium vaginae rRNA TESS+probe Ql (Vag fld) Positive Abnormal Negative for bacterial vaginosis [facility] C. trachomatis+N. gonorrhoea e DNA TESS+probe Ql (Unsp spec)on 10-03-2022 C. trachomatis DNA TESS+probe Ql (Unsp spec) Negative Negative for Chlamydia trachomatis by amplificaton [facility] N. gonorrhoeae DNA TESS+probe Ql (Unsp spec) Negative Negative for Neisseria gonorrhoeae by amplification [facility] JOHN / TRICHOMONAS AMPLIF ICATIONon 10-03-2022 C. glabrata RNA TESS+probe Ql (Vag fld) Negative Negative for John glabrata [facility] John albicans, C. dubliniensis, C. parapsilosis, and C. tropicalis RNA TESS+probe Ql (Vag fld) Positive Abnormal Negative for John species [facility] T. vaginalis DNA TESS+probe Ql (Unsp spec) Negative Negative for Trichomonas vaginalis by amplification [facility] HCG QUAL UR B/Oon 10-02-2022 status Negative neg - pos [facility] Quality Check Yes [facility] UA DIP, URINE (POC)on 2021 BILIRUBIN UA (POCT) Negative Negative [facility] CLARITY UA (POCT) Clear [facility] COLOR UA (POCT) Dark yellow [facility] d [facility] GLUCOSE UA (POCT) Negative Negative mg/dL [facility] HEMOGLOBIN/BLOOD UA (POCT) Negative Negative [facility] KETONE UA (POCT) Negative Negative mg/dL [facility] LEUKOCYTES UA (POCT) Trace Abnormal Negative [facility] NITRITE UA (POCT) Negative Negative [facility] PH UA (POCT) 5.0 4.5 - 8.0 [facility] Protein Ql (U) Negative Negative mg/dL [facility] SPECIFIC GRAVITY UA (POCT) 1.025 1.005 - 1.030 [facility] UROBILINOGEN UA (POCT) 0.2 E.U./dL Normal E.U./dL [facility] HCG QUAL UR B/Oon 07-16-2022 status Negative neg - pos [facility] Quality Check Yes [facility] UA DIP, URINE (POC)on 2021 BILIRUBIN UA (POCT) Negative Negative [facility] CLARITY UA (POCT) Cloudy [facility] COLOR UA (POCT) Other [facility] GLUCOSE UA (POCT) Negative Negative mg/dL [facility] HEMOGLOBIN/BLOOD UA (POCT) Negative Negative [facility] KETONE UA (POCT) Negative Negative mg/dL [facility] LEUKOCYTES UA (POCT) Negative Negative [facility] NITRITE UA (POCT) Negative Negative [facility] PH UA (POCT) 6.0 4.5 - 8.0 [facility] Protein Ql (U) Negative Negative mg/dL [facility] SPECIFIC GRAVITY UA (POCT) >=1.030 1.005 - 1.030 [facility] UROBILINOGEN UA (POCT) 0.2 E.U./dL Normal E.U./dL [facility] XR THORACIC GENERAL 3V AP/LA T/SWIMMERSon 07-03-2022 [facility] UA DIP, URINE (POC)on 2021 BILIRUBIN UA (POCT) Negative Negative [facility] CLARITY UA (POCT) Clear [facility] COLOR UA (POCT) Yellow [facility] GLUCOSE UA (POCT) Negative Negative mg/dL [facility] HEMOGLOBIN/BLOOD UA (POCT) Moderate Abnormal Negative [facility] KETONE UA (POCT) Trace Negative mg/dL [facility] LEUKOCYTES UA (POCT) Small Abnormal Negative [facility] NITRITE UA (POCT) Positive Abnormal Negative [facility] PH UA (POCT) 6.5 4.5 - 8.0 [facility] Protein Ql (U) 30 mg/dL Abnormal Negative mg/dL [facility] SPECIFIC GRAVITY UA (POCT) 1.025 1.005 - 1.030 [facility] UROBILINOGEN UA (POCT) 1.0 E.U./dL Normal E.U./dL [facility] Vital Signs Date Time Vital Sign Value Performing Clinician Bereket reagan 07-11-2024 12:49-0400 Body mass index (BMI) [Ratio] 23.41 kg/m2 Linda Arlen IRB COMPLIANCE COORDINATOR.PHARMACY SALESPERSON Work Phone: [facility] 07-11-2024 12:49-0400 Body weight 61.87 kg Linda Arlen IRB COMPLIANCE COORDINATOR.PHARMACY SALESPERSON Work Phone: [facility] 07-11-2024 12:49-0400 Diastolic blood pressure 78 mm[Hg] Linda Arlen IRB COMPLIANCE COORDINATOR.PHARMACY SALESPERSON Work Phone: [facility] 07-11-2024 12:49-0400 Systolic blood pressure 126 mm[Hg] Linda Denton IRB COMPLIANCE COORDINATOR.PHARMACY SALESPERSON Work Phone: [facility] 01-24-2024 15:29-0400 Body mass index (BMI) [Ratio] 22.52 kg/m2 Bharathi Estrada MD Work Phone: [facility] 01-24-2024 15:29-0400 Body weight 59.51 kg Bharathi Estrada MD Work Phone: [facility] 01-24-2024 15:29-0400 Diastolic blood pressure 70 mm[Hg] Bharathi Estrada MD Work Phone: [facility] 01-24-2024 15:29-0400 Systolic blood pressure 110 mm[Hg] Bharathi Estrada MD Work Phone: [facility] 11-23-2023 12:02-0500 Body temperature 97.81 [degF] Jeannine Vo IRB COMPLIANCE COORDINATOR.PHARMACY SALESPERSON Work Phone: [facility] 11-23-2023 12:02-0500 Diastolic blood pressure 79 mm[Hg] Jeannine Vo IRB COMPLIANCE COORDINATOR.PHARMACY SALESPERSON Work Phone: [facility] 11-23-2023 12:02-0500 Heart rate 69 /min Jeannine Vo IRB COMPLIANCE COORDINATOR.PHARMACY SALESPERSON Work Phone: [facility] 11-23-2023 12:02-0500 Systolic blood pressure 116 mm[Hg] Jeannine Vo IRB COMPLIANCE COORDINATOR.PHARMACY SALESPERSON Work Phone: [facility] 08-19-2023 10:33-0500 Body weight 65.3 kg Elysia Collier MD Work Phone: [facility] 08-19-2023 10:33-0500 Diastolic blood pressure 62 mm[Hg] Elysia Collier MD Work Phone: [facility] 08-19-2023 10:33-0500 Respiratory rate 18 /min Elysia Collier MD Work Phone: [facility] 08-19-2023 10:33-0500 Systolic blood pressure 128 mm[Hg] Elysia Collier MD Work Phone: [facility] 08-04-2023 16:00-0400 Diastolic blood pressure 78 mm[Hg] Nurse Gwendolyn Work Phone: [facility] 08-04-2023 16:00-0400 Systolic blood pressure 128 mm[Hg] Nurse Gwendolyn Work Phone: [facility] 07-23-2023 14:50-0400 Body weight 74.11 kg Remi Powell MD Work Phone: [facility] 07-23-2023 14:50-0400 Diastolic blood pressure 74 mm[Hg] Remi Powell MD Work Phone: [facility] 07-23-2023 14:50-0400 Respiratory rate 18 /min Remi Powell MD Work Phone: [facility] 07-23-2023 14:50-0400 Systolic blood pressure 130 mm[Hg] Remi Powell MD Work Phone: [facility] 07-16-2023 16:13-0400 Body weight 74.03 kg Remi Powell MD Work Phone: [facility] 07-16-2023 16:13-0400 Diastolic blood pressure 68 mm[Hg] Remi Powell MD Work Phone: [facility] 07-16-2023 16:13-0400 Systolic blood pressure 116 mm[Hg] Remi Powell MD Work Phone: [facility] 07-01-2023 15:33-0400 Body weight 74.03 kg Remi Powell MD Work Phone: [facility] 07-01-2023 15:33-0400 Diastolic blood pressure 64 mm[Hg] Remi Powell MD Work Phone: [facility] 07-01-2023 15:33-0400 Systolic blood pressure 102 mm[Hg] Remi Powell MD Work Phone: [facility] 06-25-2023 15:17-0400 Body weight 73.23 kg Elysia oCllier MD Work Phone: [facility] 06-25-2023 15:17-0400 Diastolic blood pressure 80 mm[Hg] Elysia Collier MD Work Phone: [facility] 06-25-2023 15:17-0400 Respiratory rate 18 /min Elysia Collier MD Work Phone: [facility] 06-25-2023 15:17-0400 Systolic blood pressure 130 mm[Hg] Elysia Collier MD Work Phone: [facility] 05-26-2023 18:47-0400 Body temperature 98.29 [degF] Tonya Gerardo APRN.PHARMACY SALESPERSON Work Phone: [facility] 05-26-2023 18:47-0400 Body weight 73.39 kg Tonya Gearrdo IRB COMPLIANCE COORDINATOR.PHARMACY SALESPERSON Work Phone: [facility] 05-26-2023 18:47-0400 Diastolic blood pressure 76 mm[Hg] Tonya Gerardo IRB COMPLIANCE COORDINATOR.PHARMACY SALESPERSON Work Phone: [facility] 05-26-2023 18:47-0400 Heart rate 85 /min Tonya Gerardo IRB COMPLIANCE COORDINATOR.PHARMACY SALESPERSON Work Phone: [facility] 05-26-2023 18:47-0400 Respiratory rate 21 /min Tonya Gerardo IRB COMPLIANCE COORDINATOR.PHARMACY SALESPERSON Work Phone: [facility] 05-26-2023 18:47-0400 SaO2% (BldA) [Mass fraction] 97 % Tonya Gerardo IRB COMPLIANCE COORDINATOR.PHARMACY SALESPERSON Work Phone: [facility] 05-26-2023 18:47-0400 Systolic blood pressure 104 mm[Hg] Tonya Gerardo IRB COMPLIANCE COORDINATOR.PHARMACY SALESPERSON Work Phone: [facility] 05-21-2023 08:44-0400 Body weight 71.71 kg Remi Powell MD Work Phone: [facility] 05-21-2023 08:44-0400 Diastolic blood pressure 62 mm[Hg] Remi Powell MD Work Phone: [facility] 05-21-2023 08:44-0400 Systolic blood pressure 112 mm[Hg] Remi Powell MD Work Phone: [facility] 05-19-2023 14:54-0400 Body temperature 97.59 [degF] Jerri Saab IRB COMPLIANCE COORDINATOR.PHARMACY SALESPERSON Work Phone: [facility] 05-19-2023 14:54-0400 Diastolic blood pressure 82 mm[Hg] Jerri Kaiser IRB COMPLIANCE COORDINATOR.PHARMACY SALESPERSON Work Phone: [facility] 05-19-2023 14:54-0400 Heart rate 105 /min Jerri Saab IRB COMPLIANCE COORDINATOR.PHARMACY SALESPERSON Work Phone: [facility] 05-19-2023 14:54-0400 SaO2% (BldA) [Mass fraction] 98 % Jerri Saab IRB COMPLIANCE COORDINATOR.PHARMACY SALESPERSON Work Phone: [facility] 05-19-2023 14:54-0400 Systolic blood pressure 128 mm[Hg] Jerri Saab IRB COMPLIANCE COORDINATOR.PHARMACY SALESPERSON Work Phone: [facility] 04-20-2023 08:18-0400 Body weight 68.58 kg Orlando Burroughs MD Work Phone: [facility] 04-20-2023 08:18-0400 Diastolic blood pressure 60 mm[Hg] Orlando Burroughs MD Work Phone: [facility] 04-20-2023 08:18-0400 Systolic blood pressure 112 mm[Hg] Orlando Burroughs MD Work Phone: [facility] 01-29-2023 08:12-0400 Body weight 64.32 kg Remi Powell MD Work Phone: [facility] 01-29-2023 08:12-0400 Diastolic blood pressure 64 mm[Hg] Remi Powell MD Work Phone: [facility] 01-29-2023 08:12-0400 Systolic blood pressure 122 mm[Hg] Remi Powell MD Work Phone: [facility] 12-25-2022 09:36-0400 Body height 162.6 cm Remi Powell MD Work Phone: [facility] 12-25-2022 09:36-0400 Body weight 66.22 kg Remi Powell MD Work Phone: [facility] 12-25-2022 09:36-0400 Diastolic blood pressure 62 mm[Hg] Remi Powell MD Work Phone: [facility] 12-25-2022 09:36-0400 Systolic blood pressure 106 mm[Hg] Remi Powell MD Work Phone: [facility] 11-30-2022 12:09-0500 Body temperature 97.9 [degF] Maegan Ghanshyam PA-C Work Phone: [facility] 11-30-2022 12:09-0500 Diastolic blood pressure 84 mm[Hg] Maegan Noeibli PA-C Work Phone: [facility] 11-30-2022 12:09-0500 Heart rate 101 /min Maegan Noeibli PA-C Work Phone: [facility] 11-30-2022 12:09-0500 SaO2% (BldA) [Mass fraction] 98 % Maegan Ghanshyam PA-C Work Phone: [facility] 11-30-2022 12:09-0500 Systolic blood pressure 127 mm[Hg] Maegan Noeibli PA-C Work Phone: [facility] 10-02-2022 16:43-0500 Body temperature 98.01 [degF] Washington Pendlebury IRB COMPLIANCE COORDINATOR.PHARMACY SALESPERSON Work Phone: [facility] 10-02-2022 16:43-0500 Body weight 66.86 kg Washington Pendlebury IRB COMPLIANCE COORDINATOR.PHARMACY SALESPERSON Work Phone: [facility] 10-02-2022 16:43-0500 Diastolic blood pressure 82 mm[Hg] Washington Pendlebury IRB COMPLIANCE COORDINATOR.PHARMACY SALESPERSON Work Phone: [facility] 10-02-2022 16:43-0500 Heart rate 92 /min Washington Pendlebury IRB COMPLIANCE COORDINATOR.PHARMACY SALESPERSON Work Phone: [facility] 10-02-2022 16:43-0500 Respiratory rate 18 /min Washington Pendlebury IRB COMPLIANCE COORDINATOR.PHARMACY SALESPERSON Work Phone: [facility] 10-02-2022 16:43-0500 SaO2% (BldA) [Mass fraction] 97 % Washington Pendlebury IRB COMPLIANCE COORDINATOR.PHARMACY SALESPERSON Work Phone: [facility] 10-02-2022 16:43-0500 Systolic blood pressure 122 mm[Hg] Washington Pendlebury IRB COMPLIANCE COORDINATOR.PHARMACY SALESPERSON Work Phone: [facility] 07-17-2022 16:19-0400 Diastolic blood pressure 80 mm[Hg] Hellen Paez MD Work Phone: [facility] 07-17-2022 16:19-0400 Heart rate 80 /min Hellen Paez MD Work Phone: [facility] 07-17-2022 16:19-0400 Systolic blood pressure 130 mm[Hg] Hellen Paez MD Work Phone: [facility] 07-16-2022 15:54-0400 Body height 165.1 cm Elysia Reaper IRB COMPLIANCE COORDINATOR.PHARMACY SALESPERSON Work Phone: [facility] 07-16-2022 15:54-0400 Body weight 70.4 kg Elysia Reaper IRB COMPLIANCE COORDINATOR.PHARMACY SALESPERSON Work Phone: [facility] 07-16-2022 15:54-0400 Diastolic blood pressure 80 mm[Hg] Elysia Reaper IRB COMPLIANCE COORDINATOR.PHARMACY SALESPERSON Work Phone: [facility] 07-16-2022 15:54-0400 Systolic blood pressure 118 mm[Hg] Elysia Reaper IRB COMPLIANCE COORDINATOR.PHARMACY SALESPERSON Work Phone: [facility] 04-10-2022 18:09-0400 Body height 162.6 cm Luana Ball IRB COMPLIANCE COORDINATOR.PHARMACY SALESPERSON Work Phone: [facility] 04-10-2022 18:09-0400 Body mass index (BMI) [Percentile] Per age and sex 90.55 % Luana Ball IRB COMPLIANCE COORDINATOR.PHARMACY SALESPERSON Work Phone: [facility] 04-10-2022 18:09-0400 Body weight 74.39 kg Luana Ball IRB COMPLIANCE COORDINATOR.PHARMACY SALESPERSON Work Phone: [facility] 04-10-2022 18:09-0400 Diastolic blood pressure 88 mm[Hg] Luana Ball IRB COMPLIANCE COORDINATOR.PHARMACY SALESPERSON Work Phone: [facility] 04-10-2022 18:09-0400 Heart rate 89 /min Luana Ball IRB COMPLIANCE COORDINATOR.PHARMACY SALESPERSON Work Phone: [facility] 04-10-2022 18:09-0400 Respiratory rate 16 /min Luanachris Nevarez IRB COMPLIANCE COORDINATOR.PHARMACY SALESPERSON Work Phone: [facility] 04-10-2022 18:09-0400 SaO2% (BldA) [Mass fraction] 99 % Luana Ball IRB COMPLIANCE COORDINATOR.PHARMACY SALESPERSON Work Phone: [facility] 04-10-2022 18:09-0400 Systolic blood pressure 142 mm[Hg] Luana Nevarez IRB COMPLIANCE COORDINATOR.PHARMACY SALESPERSON Work Phone: [facility] 03-31-2022 16:00-0400 Body height 162.5 cm Angela Ray MD Work Phone: [facility] 03-31-2022 16:00-0400 Body mass index (BMI) [Percentile] Per age and sex 92.5 % Angela Ray MD Work Phone: [facility] 03-31-2022 16:00-0400 Body weight 77.07 kg Angela Ray MD Work Phone: [facility] 03-31-2022 16:00-0400 Diastolic blood pressure 88 mm[Hg] Angela Ray MD Work Phone: [facility] 03-31-2022 16:00-0400 Heart rate 89 /min Angela Ray MD Work Phone: [facility] 03-31-2022 16:00-0400 Systolic blood pressure 140 mm[Hg] Angela Ray MD Work Phone: [facility] 03-04-2022 17:56-0400 Body mass index (BMI) [Percentile] Per age and sex 91.93 % Louann Garcia PA-C Work Phone: [facility] 03-04-2022 17:56-0400 Body temperature 98.4 [degF] Louann Garcia PA-C Work Phone: [facility] 03-04-2022 17:56-0400 Body weight 78.52 kg Louann Wormald PA-C Work Phone: [facility] 03-04-2022 17:56-0400 Diastolic blood pressure 75 mm[Hg] Louann Wormald PA-C Work Phone: [facility] 03-04-2022 17:56-0400 Heart rate 83 /min Louann Wormald PA-C Work Phone: [facility] 03-04-2022 17:56-0400 Respiratory rate 12 /min Louann Wormald PA-C Work Phone: [facility] 03-04-2022 17:56-0400 SaO2% (BldA) [Mass fraction] 100 % Louann Wormald PA-C Work Phone: [facility] 03-04-2022 17:56-0400 Systolic blood pressure 128 mm[Hg] Louann Wormald PA-C Work Phone: [facility] Encounters Encounter Date Encounter Type Care Provider Facility Start: 07-31-2025 ambulatory Rosie Stinson Facility :[facility] Start: 07-16-2025 ambulatory Efewongbe Oleghe Facili ty:[facility] Start: 07-16-2025 End: 07-16-2025 ambulatory Rosie Stinson Facility:[facility] Start: 07-03-2025 End: 07-03-2025 ambulatory Efewongbe Oleghe Facility:[facility] Start: 06-29-2025 ambulatory Rosie Stinson [facility] [facility] Start: 06-27-2025 ambulatory Efewongbe Oleghe Facili ty:[facility] Start: 06-26-2025 End: 06-26-2025 ambulatory Efewongbe Oleghe Facility:[facility] Start: 06-26-2025 End: 06-26-2025 ambulatory Rosie Stinson Facility:[facility] Start: 06-21-2025 End: 06-21-2025 ambulatory Rosie Stinson Facility:[facility] Start: 06-19-2025 ambulatory Sharmin Hernandez Facility :[facility] Start: 06-19-2025 ambulatory Rosie Stinson Facility :[facility] Start: 06-18-2025 End: 06-18-2025 ambulatory Efewongbe Lawghe Facility:[facility] Start: 06-13-2025 End: 06-13-2025 ambulatory Efewongbe Oleghe [facility] Start: 06-11-2025 End: 06-11-2025 ambulatory Sharmin Hernandez Facility:[facility] Start: 06-08-2025 End: 06-08-2025 ambulatory Efewongbe Oleghe Facility:[facility] Start: 05-21-2025 End: 05-21-2025 ambulatory Jesus Dickey Facility:[facility] Start: 05-18-2025 ambulatory Efewongbe Oleghe Facili ty:[facility] Start: 05-18-2025 End: 05-18-2025 ambulatory Efewongbe Oleghe Facility:[facility] Start: 05-11-2025 End: 05-11-2025 ambulatory Efewongbe Oleghe [facility] Start: 05-10-2025 End: 05-10-2025 ambulatory Efewongbe Oleghe Facility:[facility] Start: 05-08-2025 End: 05-09-2025 ambulatory Efewongbe Oleghe Facility:[facility] Start: 05-07-2025 End: 05-07-2025 ambulatory Tonya Ungishaanr Facility:[facility] Start: 05-02-2025 End: 05-02-2025 ambulatory Sharmin Hernandez Facility:[facility] Start: 04-30-2025 End: 04-30-2025 ambulatory Efewongbe Oleseane Facility:[facility] Start: 04-27-2025 End: 04-27-2025 ambulatory Efewongbe Oleghe Facility:[facility] Start: 04-25-2025 End: 04-25-2025 ambulatory Rosie Stinson Facility:[facility] Start: 04-23-2025 End: 04-23-2025 ambulatory Jesus Dickey Facility:[facility] Start: 04-12-2025 End: 04-12-2025 ambulatory Tonya Ungerer Facility:[facility] Start: 04-03-2025 End: 04-03-2025 ambulatory Elizabeth Dang Facility:[facility] Start: 03-26-2025 End: 03-26-2025 ambulatory Elizabeth Dang Facility:[facility] Start: 03-23-2025 End: 03-23-2025 ambulatory Rosie Stinson Facility:[facility] Start: 02-21-2025 End: 02-21-2025 ambulatory Jesus LLANES Facility:[facility] Start: 02-20-2025 End: 02-20-2025 ambulatory Jesus LLANES Facility:[facility] Start: 02-12-2025 End: 02-12-2025 ambulatory Matilde Castillo Facility:[facility] Start: 02-06-2025 End: 02-06-2025 ambulatory Rosie Stinson Facility:[facility] Start: 02-06-2025 End: 02-06-2025 ambulatory Rosie Stinson Facility:[facility] Start: 02-02-2025 End: 02-02-2025 [facility] Start: 01-22-2025 ambulatory Vani Dossi [facility] Start: 01-04-2025 End: 01-04-2025 ambulatory Sharmin Hernandez Facility:[facility] Start: 01-04-2025 End: 01-04-2025 ambulatory Sharmin Hernandez Facility:[facility] Start: 12-18-2024 ambulatory Vani Dossi [facility] Start: 12-12-2024 End: 12-12-2024 ambulatory [facility] Start: 11-27-2024 End: 11-27-2024 ambulatory Vani Dossi Facility:[facility] Start: 11-13-2024 ambulatory Vani Dossi [facility] Start: 10-30-2024 End: 10-30-2024 ambulatory Vani Dossi Facility:[facility] Start: 10-25-2024 End: 10-25-2024 [facility] Start: 10-23-2024 ambulatory Vani Dossi [facility] Start: 10-09-2024 End: 10-09-2024 ambulatory Vani Dossi [facility] Start: 09-15-2024 Encounter for gynecological examination (general) (routine) without abnormal findings Rosie Stinson [facility] Start: 09-15-2024 End: 09-15-2024 ambulatory Rosie Stinson Facility[facility] Start: 09-15-2024 End: 09-15-2024 ambulatory Rosie Stinson Facility:[facility] Start: 09-11-2024 End: 09-11-2024 ambulatory Vani Cm Facility:[facility] Start: 08-28-2024 End: 08-28-2024 ambulatory No Primary Care Physician Facility:[facility] Start: 07-12-2024 End: 07-12-2024 Orders Only Bharathi Estrada MD Work Phone: OB/Gynecology Comment on above: Ovarian cyst, right (Primary Dx) Start: 07-11-2024 End: 07-11-2024 ambulatory HELLEN PAEZ OB/Gynecology Start: 07-11-2024 End: 07-11-2024 Patient encounter procedure Linda Márquez IRB COMPLIANCE COORDINATOR.PHARMACY SALESPERSON Work Phone: OB/Gynecology Comment on above: Surveillance of prev iously prescribed intrauterine contraceptive device (Primary Dx) Start: 01-24-2024 End: 01-24-2024 Patient encounter procedure Bharathi Estrada MD Work Phone: OB/Gynecology Comment on above: Pelvic pain in femal e (Primary Dx); IUD check up; Abnormal uterine bleeding (AUB) Start: 11-23-2023 End: 11-23-2023 Patient encounter procedure Jeannine Merrill IRB COMPLIANCE COORDINATOR.PHARMACY SALESPERSON Work Phone: [facility] Comment on [...] 08-04-2023 End: 08-04-2023 Patient encounter procedure Nurse [employer] Safety Program Coordinator [facility] Work Phone: Obstetrics/Gynecology Comment on above: BP check (Primary Dx ) Start: 08-04-2023 End: 08-04-2023 Patient encounter status Nurse Gwendolyn Work Phone: [facility] Start: 08-04-2023 ambulatory Elysia woodruff MD Work Phone: Obstetrics/Gynecology Comment on above: Blood pressure Start: 07-29-2023 Telephone encounter Delaney Ney Snowden APRN.CNM Work Phone: [facility] Obstetrics & Gynecology Comment on above: Appointment (Needs o ne week bp check for GHTN) Start: 07-27-2023 End: 07-30-2023 Evaluation and management of inpatient HELLEN PAEZ Facility:[facility] Start: 07-26-2023 End: 07-26-2023 [facility] Start: 07-26-2023 Telephone encounter Darren Rodríguez MD Work Phone: Obstetrics/Gynecology Start: 07-23-2023 End: 07-23-2023 Patient encounter procedure Remi Powell MD Work Phone: Obstetrics/Gynecology Comment on above: Encounter for superv ision of normal in third trimester, unspecified (Primary Dx) Start: 07-23-2023 End: 07-24-2023 ambulatory Georgiana Kasper [facility] Comment on above: Population Health Na vigation [...] End: 05-26-2023 Patient encounter procedure Tonya Gerardo APRN.PHARMACY SALESPERSON Work Phone: [facility] Comment on above: Pharyngitis, unspeci fied etiology (Primary Dx) Start: 05-21-2023 End: 05-21-2023 Patient encounter procedure Remi Powell MD Work Phone: Obstetrics/Gynecology Comment on above: Encounter for superv ision of normal first in third trimester (Primary Dx) Start: 05-19-2023 End: 05-19-2023 Patient encounter procedure Jerri Saab APRN.PHARMACY SALESPERSON Work Phone: [facility] Comment on above: Sore throat (Primary Dx); Suspected COVID-19 virus infection Start: 04-20-2023 End: 04-20-2023 Patient encounter procedure Orlando Burroughs MD Work Phone: Obstetrics/Gynecology Comment on above: Encounter for superv ision of normal first in second trimester (Primary Dx); 24 weeks gestation of Start: 03-19-2023 End: 03-19-2023 Patient encounter procedure [employer] Safety Program Coordinator [facility] Work Phone: Maternal Medicine Comment on above: Encounter for anatomic survey (Primary Dx); Encounter for screening of mother Start: 02-09-2023 ambulatory Omar Calabrese Work Phone: Internal Medicine [facility] Comment on above: Positive testing Start: 02-09-2023 E-mail encounter fro m caregiver Omar Velarde PA-C Work Phone: [facility] Start: 02-01-2023 Telephone encounter Brie vaz MD Work Phone: Maternal Medicine Comment on above: Results (NIPT ) Start: 01-29-2023 End: 01-29-2023 Patient encounter procedure Remi Powell MD Work Phone: Obstetrics/Gynecology Comment on above: Encounter for superv ision of normal first in first trimester (Primary Dx); IUD migration, initial encounter Start: 01-25-2023 End: 01-26-2023 ambulatory Brie EVANS Facility:[facility] Start: 01-05-2023 ambulatory Brett colon PA-C Work Phone: [facility] Comment on above: Vaginal culture resu lts/treatment - January 05, 2023 Urine culture - Apri 2022 Start: 01-05-2023 E-mail encounter libra m caregiver Brett Mejía PA-C Work Phone: [facility] Start: 12-25-2022 End: 12-25-2022 Patient [...] Possible Start: 11-10-2022 Telephone encounter Wesley carlson [facility] Work Phone: Psychiatry Comment on above: Patient Update Start: 11-03-2022 End: 11-03-2022 Patient encounter procedure Rajni BEAL Work Phone: Psychology Comment on above: Bipolar II disorder (HCC) (Primary Dx); Post traumatic stress disorder (PTSD); Eating disorder, unspecified type Start: 10-03-2022 Telephone encounter Patricia Nuno APRN.PHARMACY SALESPERSON Work Phone: [facility] Comment on above: Results Start: 10-02-2022 End: 10-02-2022 Office outpatient visit 25 minutes Washington Goss APRN.PHARMACY SALESPERSON Work Phone: [facility] Comment on above: Urinary frequency (P rimary Dx); Vaginal discharge Start: 07-22-2022 End: 07-22-2022 Patient encounter procedure Wilver Montemayor DC Work Phone: Integrative Medicine Comment on above: Chronic bilateral th oracic back pain (Primary Dx) Start: 07-17-2022 End: 07-18-2022 Office outpatient visit 25 minutes Hellen Paez MD Work Phone: Internal Medicine [facility] [place] Comment on above: Primary insomnia (Pr imary Dx); Cyclothymia; Recurrent syncope; Chronic maxillary sinusitis; Encounter for immunization Start: 07-16-2022 End: 07-16-2022 Patient encounter procedure Elysia Campbell APRN.PHARMACY SALESPERSON Work Phone: Gynecology Comment on above: Urinary [...] fro m caregiver Renea BEAL Work Phone: [facility] Start: 04-14-2022 End: 04-14-2022 Patient encounter procedure Carmen Ramirez MD Work Phone: Otolaryngology Comment on above: Allergic rhinitis, u nspecified seasonality, unspecified trigger (Primary Dx); Dysfunction of both eustachian tubes Start: 04-13-2022 ambulatory Roxie Thorne RN [facility] Start: 04-13-2022 Follow-up encounter Roxie Thorne RN [facility] Comment on above: Transition Of Care ( [facility] - Hospital D/C Follow up - Initial Outreach) Start: 04-10-2022 End: 04-10-2022 Patient encounter procedure Luana Nevarez APRN.CNP Work Phone: [facility] Comment on above: Procedure not dax d out (Primary Dx) Start: 04-08-2022 End: 04-08-2022 Emergency department patient visit Maxine Dewitt BRITTANY.PHARMACY SALESPERSON Work Phone: Gynecology Comment on above: Emergency contracept ion (Primary Dx); Encounter for initial prescription of contraceptive pills; Decreased appetite; History of recent stressful life event Start: 04-08-2022 End: 04-08-2022 Telemedicine consultation with patient Maxine Dewitt BRITTANY.PHARMACY SALESPERSON Work Phone: [facility] Start: 03-31-2022 End: 04-01-2022 Initial preventive medicine new pt age 18-39yrs Angela Ray MD Work Phone: Internal Medicine [facility] Comment on above: Wellness examination (Primary Dx); Chronic maxillary sinusitis; Maxillary micrognathia; Velopharyngeal insufficiency, congenital; Cleft palate, unspecified; Chronic midline 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 sciatica; Vasovagal syncope Start: 03-31-2022 End: 04-01-2022 Patient encounter status Angela Ray MD Work Phone: Internal [facility] Start: 03-04-2022 End: 03-04-2022 Patient encounter procedure Louann Garcia PA-C Work Phone: [facility] Comment on above: Leukocytes in urine (Primary Dx); Dysuria; Urinary frequency Start: 03-04-2022 ambulatory Romario briones PA-C Work Phone: Telemedicine Comment on above: Treatment not availa ble (Primary Dx) Uti & refill Start: 02-03-2022 Phys/qhp online evaluation & management service Maegan Stinson APRN.PHARMACY SALESPERSON Work Phone: Telemedicine Comment on above: Treatment not availa ble (Primary Dx) Procedures Date Procedure Procedure Detail Performing Clinician Start: 07-11-2024 Us pelvic nonobstetr ic real-time image complete Bharathi Estrada MD Work Phone: Start: 11-23-2023 Urnls dip stick/tabl et rgnt auto w/o microscopy Jeannine Merrill IRB COMPLIANCE COORDINATOR.PHARMACY SALESPERSON Work Phone: Start: 07-27-2023 Antibody screen HELLEN PAEZ Comment on above: Order Comment: Speci men Type: BLOOD SPECIMENOrdering Facility: [facility] Address: [address] [place] [address] Performed By: #### T SPN ####[facility] BLOOD BANKCLIA [id number] [place] [address] [place] Start: 07-23-2023 URINE [...] 05-19-2023 STREP A MOLECULAR (POC) Jerri Saab APRN.PHARMACY SALESPERSON Work Phone: Start: 05-19-2023 COVID & INFLUENZA A/ B & RSV NAAT, ROUTINE Jerri Saab APRN.PHARMACY SALESPERSON Work Phone: Start: 05-19-2023 Iadna respiratry pro be & rev trnscr 3-5 targets Jerri Saab APRN.PHARMACY SALESPERSON Work Phone: Start: 05-19-2023 Sars-cov-2 detection by dna/rna Jerri Saab IRB COMPLIANCE COORDINATOR.PHARMACY SALESPERSON Work Phone: Start: 04-20-2023 URINE OB DIP B/O eVsna Burroughs MD Work Phone: Start: 03-19-2023 Us [...] Start: 10-02-2022 BACTERIAL VAGINOSIS AMPLIFICATION Washington Goss IRB COMPLIANCE COORDINATOR.PHARMACY SALESPERSON Work Phone: Start: 10-02-2022 End: 10-02-2022 Iadna chlamydia trachomatis amplified probe tq Washington Cantuchristophe IRB COMPLIANCE COORDINATOR.PHARMACY SALESPERSON Work Phone: Start: 10-02-2022 Culture bacterial quanttative colony count urine Washington Goss IRB COMPLIANCE COORDINATOR.PHARMACY SALESPERSON Work Phone: Start: 10-02-2022 End: 10-02-2022 Urnls dip stick/tablet rgnt auto w/o microscopy Sylwia Ortiz IRB COMPLIANCE COORDINATOR.PHARMACY SALESPERSON Work Phone: Start: 07-17-2022 INFLUENZA VACCINE QUADRIVALENT 6 MO - 64 YRS IM Hellen Paez MD Work Phone: Start: 07-16-2022 End: 07-16-2022 Urnls dip stick/tablet rgnt auto w/o microscopy Elysia Campbell IRB COMPLIANCE COORDINATOR.PHARMACY SALESPERSON Work Phone: Start: 07-03-2022 Radex spine thoracic 3 views Wilver Montemayor DC Work Phone: Start: 03-31-2022 Adult depression scr eening assessment Angela Ray MD Work Phone: Start: 03-04-2022 Urnls dip stick/tabl et rgnt auto w/o microscopy [facility] Provider Plan of Treatment Date Care Activity Detail Author Start: 05-21-2033 Urine microalbumin profile [facility] Start: 09-14-2026 Screening for malign ant neoplasm of cervix [facility] Start: 05-15-2025 Urine microalbumin profile DTAP,TDAP,TD (7 - Td or Tdap) [facility] Start: 10-13-2024 End: 10-13-2024 Patient encounter procedure 10/13/2024 11:00 AM EST Office Visit Obstetrics/Gynecology [address] [address] Elysia Collier MD [address] [place] [address] ANNUAL EXAM Obstetrics/Gynecolog y Comment on above: ANNUAL EXAM Start: 10-02-2024 End: 10-02-2024 Patient encounter procedure Obstetrics/Gynecolog y Comment on above: ANNUAL EXAM Start: 07-12-2024 End: 10-09-2025 US Pelvis PELVIC US [facility] Anc Imaging Routine Ovarian cyst, right Expected: 07/12/2024, Expires: 07/12/2025 [facility] Work Phone: Comment on above: Expected: 07/12/2024 , Expires: 07/12/2025 Start: 06-04-2024 Covid-19 Vaccine () Covid-19 Vaccine () [facility] Start: 06-04-2024 Influenza vaccination Influenza Vacc ine (#1) [facility] Start: 02-24-2024 End: 02-24-2024 Patient encounter procedure 02/24/2024 3:40 PM EDT Office Visit OB/Gynecology [address] [place], [place] [id number] Minoo Arzate MD [address] [place] [address] Pelvic US/IUD follow up OB/Gynecology Comment on above: Pelvic US/IUD follow up Start: 02-24-2024 End: 02-24-2024 Manual pelvic examination 02/24/2024 3:00 PM EDT Procedure OB/Gynecology [address] [place] [id number] Pelvic pain in female [R10.2] OB/Gynecology Comment on above: Pelvic pain in femal e [R10.2] Start: 01-24-2024 End: 01-23-2025 US Pelvis PELVIC US [facility] Anc Imaging Routine Pelvic pain in female Expected: 01/24/2024, Expires: 01/23/2025 [facility] Work Phone: Comment on above: Expected: 01/24/2024 , Expires: 01/23/2025 Start: 12-26-2023 CHLAMYDIA SCREENING (18-24) CHLAMYDIA SCREENING (18-24) [facility] Start: 12-26-2023 GC (GONORRHEA) SCREE TACOS (18-24) GC (GONORRHEA) SCREENING (18-24) [facility] Start: 12-26-2023 Screening for Chlamy rickey trachomatis Chlamydia Screening (18-) [facility] Start: 10-04-2023 Behavioral Health Screening Behavioral Health Screening [facility] Start: 10-04-2023 Depression Assessment Depression Ass essment [facility] Start: 10-02-2023 CHLAMYDIA SCREENING (18-24) CHLAMYDIA SCREENING (18-24) [facility] Start: 10-02-2023 GC (GONORRHEA) SCREE TACOS (18-24) GC (GONORRHEA) SCREENING (18-24) [facility] Start: 07-23-2023 End: 10-22-2023 Protein/Creatinine [Mass Ratio] in Urine [facility] Work Phone: Comment on above: Expected: 07/23/2023 , Expires: 10/22/2023 Start: 07-17-2023 COVID-19 VACCINE (3 - Booster for Pfizer series) COVID-19 VACCINE (3 - Booster for Pfizer series) [facility] Comment on above: Postponed from 10/17 (Declined at this time) Start: 07-17-2023 COVID-19 VACCINE (3 - Pfizer series) COVID-19 VACCINE (3 - Pfizer series) [facility] Comment on above: Postponed from 10/17 (Declined at this time) Start: 07-17-2023 HEPATITIS C SCREENING HEPATITIS C [facility] Comment on above: Postponed from 12/06 (Declined at this time) Start: 07-17-2023 HIV [address]CREEN[address] HIV SCREENING [facility] Comment on above: Postponed from 12/06 (Declined at this time) Start: 07-17-2023 Meningococcal B Vacc ine: Consider Based On Risk (1 of 2 - Patient Seeks Protection) Meningococcal B Vaccine: Consider Based On Risk (1 of 2 - Patient Seeks Protection) [facility] Comment on above: Postponed from 12/06 (Declined at this time) Start: 07-17-2023 MENINGOCOCCAL B: Consider based on risk (1 of 2 - Patient Seeks Protection) MENINGOCOCCAL B: Consider based on risk (1 of 2 - Patient Seeks Protection) [facility] Comment on above: Postponed from 12/06 (Declined at this time) Start: 07-17-2023 MENINGOCOCCAL B: Consider based on risk (1 of 2 - Risk Bexsero 2-dose series) MENINGOCOCCAL B: Consider based on risk (1 of 2 - Risk Bexsero 2-dose series) [facility] Comment on above: Postponed from 12/06 (Declined at this time) Start: 07-16-2023 CHLAMYDIA SCREENING () CHLAMYDIA SCREENING () [facility] Start: 07-16-2023 GC (GONORRHEA) SCREE TACOS () GC (GONORRHEA) SCREENING () [facility] Start: 06-04-2023 Covid-19 Vaccine ( season) Covid-19 Vaccine ( season) [facility] Start: 06-04-2023 Influenza vaccination INFLUENZA (#1) [facility] Start: 05-21-2023 End: 07-21-2023 CBC W Auto Differential panel - Blood CBC + DIFF Lab Routine Encounter for supervision of normal first in third trimester Expected: 05/21/2023, Expires: 07/21/2023 [facility] Work Phone: Comment on above: Expected: 05/21/2023 , Expires: 07/21/2023 Start: 04-20-2023 End: 06-20-2023 GEST GLUC SCREEN, 1-HR, 50 GM, NON-FASTING [facility] Work Phone: Comment on above: Expected: 04/20/2023 , Expires: 06/20/2023 Start: 03-31-2023 Adult depression screening assessment DEPRESSION SCREENING [facility] Start: 12-25-2022 End: 12-26-2023 NUCHAL TRANSLUCENCY WHI NUCHAL TRANSLUCENCY [facility] Anc Imaging Routine Encounter for supervision of normal first in first trimester Expected: 12/25/2022, Expires: 12/26/2023 [facility] Work Phone: Comment on above: Expected: 12/25/2022 , Expires: 12/26/2023 Start: 10-04-2022 DEPRESSION ASSESSMENT DEPRESSION ASS ESSMENT [facility] Start: 06-04-2022 Influenza vaccination INFLUENZA (#1) [facility] Start: 01-20-2022 COVID-19 VACCINE (3 - Booster for Pfizer series) COVID-19 VACCINE (3 - Booster for Pfizer series) [facility] Start: 10-17-2021 COVID-19 VACCINE (3 - Booster for Pfizer series) COVID-19 VACCINE (3 - Booster for Pfizer series) [facility] Start: 10-04-2021 DEPRESSION ASSESSMENT DEPRESSION ASS ESSMENT [facility] Start: 2020 Anxiety Screening Anxiety Screening [facility] Start: 2020 CHLAMYDIA SCREENING (18-24) CHLAMYDIA SCREENING (18-24) [facility] Start: 2020 Depression Screening Depression Scre ening [facility] Start: 2020 GC (GONORRHEA) SCREE TACOS (18-24) GC (GONORRHEA) SCREENING (18-24) [facility] Start: 2020 HEPATITIS C SCREENING HEPATITIS C SC REENING [facility] Start: 2020 HIV SCREENING HIV SCREENING [facility] Start: 2018 Meningococcal B Vacc ine: Consider Based On Risk (1 of 2 - Patient Seeks Protection) Meningococcal B Vaccine: Consider Based On Risk (1 of 2 - Patient Seeks Protection) [facility] Start: 2016 PEDS TO ADULT TRANSI TION ANNUAL ASSESSMENT PEDS TO ADULT TRANSITION ANNUAL ASSESSMENT [facility] Start: 2014 Adult depression screening assessment DEPRESSION SCREENING [facility] Start: 2014 PEDS TO ADULT TRANSI TION INITIAL DISCUSSION PEDS TO ADULT TRANSITION INITIAL DISCUSSION [facility] Start: 2012 MENINGOCOCCAL B: Consider based on risk (1 of 2 - Risk Bexsero 2-dose series) MENINGOCOCCAL B: Consider based on risk (1 of 2 - Risk Bexsero 2-dose series) [facility] Bacteria identified in Urine by Culture URINE CULTURE Microbiology Routine Dysuria Ordered: 03/04/2022 [facility] Work Phone: Comment on above: Ordered: 03/04/2022 Bacteria identified in Urine by Culture URINE CULTURE Microbiology Routine UTI symptoms 11/23/2023 12:33 PM EST [facility] Work Phone: BACTERIAL VAGINOSIS AMPLIFICATION BACTERIAL VAGINOSIS AMPLIFICATION Lab Routine Vaginal discharge Vaginal odor 07/16/2022 4:38 PM EDT [facility] Work Phone: JOHN / TRICHOMONA S AMPLIFICATION JOHN / TRICHOMONAS AMPLIFICATION Microbiology Routine Vaginal discharge Vaginal odor 07/16/2022 4:38 PM EDT [facility] Work Phone: Chlamydia trachomatis+Neisseria gonorrhoeae DNA [Presence] in Unspecified specimen by TESS with probe detection GC/CHLAMYDIA DNA DET Lab Routine Vaginal discharge Vaginal odor 07/16/2022 4:38 PM EDT [facility] Work Phone: INDUCTION L&D INDUCTION L&D Procedures Routine Encounter for supervision of normal in third trimester, unspecified 1 Occurrences starting 07/23/2023 [facility] Work Phone: Comment on above: 1 Occurrences starti ng 07/23/2023 End: 06-17-2024 OXIMETRY AT REST OXIMETRY AT REST PFT Routine Sore throat 1 Occurrences starting 05/19/2023 until 06/17/2024 [facility] Work Phone: Comment on above: 1 Occurrences starti ng 05/19/2023 until 06/17/2024 PAP TEST PAP TEST Lab Ab [facility]ley care and examination Cervical cancer screening Ordered: 09/14/2023 [facility] Work Phone: Comment on above: Ordered: 09/14/2023 POC ENERGY DIRECTOR ULTRASOUND POC ENERGY DIRECTOR ULTRASO UND Anc Imaging Routine Encounter for supervision of normal first in first trimester Ordered: 12/25/2022 [facility] Work Phone: Comment on above: Ordered: 12/25/2022 End: 07-31-2023 [facility] spine thoracic 3 views XR THORACIC GENERAL 3V AP/LAT/SWIMMERS Radiology Routine Chronic bilateral thoracic back pain 1 Occurrences starting 07/01/2022 until 07/31/2023 [facility] Work Phone: Comment on above: 1 Occurrences starti ng 07/01/2022 until 07/31/2023 ROUTINE, GR OUP B STREP PCR ROUTINE, GROUP B STREP PCR Microbiology Routine Encounter for supervision of normal in third trimester, unspecified 07/16/2023 4:14 PM EDT [facility] Work Phone: UA DIP B/O UA DIP B/O Lab R outine Dysuria Ordered: 03/04/2022 [facility] Work Phone: Comment on above: Ordered: 03/04/2022 [facility] Immunizations Immunization Date Immunization Notes Care Provider Fa [facility] 06-25-2023 influenza, injectabl e, quadrivalent, contains preservative Elysia Collier MD Work Phone: [facility] 06-25-2023 influenza virus vacc ine, unspecified formulation Linda Márquez IRB COMPLIANCE COORDINATOR.PHARMACY SALESPERSON Work Phone: [facility] 05-21-2023 tetanus toxoid, redu garett diphtheria toxoid, and acellular pertussis vaccine, adsorbed Remi Powell MD Work Phone: [facility] 07-17-2022 influenza, injectabl e, quadrivalent, contains preservative Hellen Paez MD Work Phone: [facility] 08-22-2021 COVID-19 vaccine, ag e 12+ yr ([facility] [facility] [facility]) Maegan Stinson IRB COMPLIANCE COORDINATOR.PHARMACY SALESPERSON Work Phone: [facility] 07-03-2021 influenza, injectabl e, quadrivalent, contains preservative Maegan Stinson APRN.PHARMACY SALESPERSON Work Phone: [facility] Work Phone: 06-18-2020 meningococcal polysaccharide (groups A, C, Y and W-135) diphtheria toxoid conjugate vaccine (MCV4P) Maegan Stinson IRB COMPLIANCE COORDINATOR.PHARMACY SALESPERSON Work Phone: [facility] Work Phone: 06-16-2018 Human Papillomavirus 9-valent vaccine Maegan Stinson APRN.[facility] Work Phone: [facility] Work Phone: 06-14-2017 Human Papillomavirus 9-valent vaccine Maegan Stinson APRN.[facility] Work Phone: [facility] Work Phone: 05-15-2015 meningococcal oligosaccharide (groups A, C, Y and W-135) diphtheria toxoid conjugate vaccine (MCV4O) Maegan Stinson APRN.[facility] Work Phone: [facility] Work Phone: 05-15-2015 tetanus toxoid, redu garett diphtheria toxoid, and acellular pertussis vaccine, adsorbed Maegan Stinson APRN.[facility] Work Phone: [facility] Work Phone: 06-26-2014 influenza virus vacc ine, live, attenuated, for intranasal use Maegan Stinson APRN.[facility] Work Phone: [facility] Work Phone: 03-21-2012 hepatitis A vaccine, pediatric/adolescent dosage, 2 dose schedule Maegan Stinson APRN.[facility] Work Phone: [facility] Work Phone: 07-28-2011 influenza virus vacc ine, live, attenuated, for intranasal use Maegan Stinson APRN.[facility] Work Phone: [facility] Work Phone: 03-04-2011 hepatitis A vaccine, pediatric/adolescent dosage, 2 dose schedule Maegan Stinson APRN.[facility] Work Phone: [facility] Work Phone: 07-15-2010 influenza virus vacc ine, live, attenuated, for intranasal use Maegan Stinson APRN.[facility] Work Phone: [facility] Work Phone: 08-18-2008 influenza virus vacc ine, live, attenuated, for intranasal use Maegan Stinson APRN.PHARMACY SALESPERSON Work Phone: [facility] Work Phone: 04-08-2007 diphtheria, tetanus toxoids and acellular pertussis vaccine, unspecified formulation Maegan Stinson APRN.PHARMACY SALESPERSON Work Phone: [facility] Work Phone: 04-08-2007 measles, mumps and rubella virus vaccine Maegan Stinson APRN.PHARMACY SALESPERSON Work Phone: [facility] Work Phone: 04-08-2007 poliovirus vaccine, unspecified formulation Maegan Stinson APRN.PHARMACY SALESPERSON Work Phone: [facility] Work Phone: 04-08-2007 varicella virus vaccine Shannan Stinson APRN.PHARMACY SALESPERSON Work Phone: [facility] Work Phone: 06-19-2004 poliovirus vaccine, unspecified formulation Maegan Stinson APRN.PHARMACY SALESPERSON Work Phone: [facility] Work Phone: 04-03-2004 diphtheria, tetanus toxoids and acellular pertussis vaccine, unspecified formulation Maegan Stinson APRN.PHARMACY SALESPERSON Work Phone: [facility] Work Phone: 04-03-2004 haemophilus influenz ae type b vaccine, conjugate unspecified formulation Maegan Stinson APRN.PHARMACY SALESPERSON Work Phone: [facility] Work Phone: 01-25-2004 measles, mumps and rubella virus vaccine Maegan Stinson APRN.PHARMACY SALESPERSON Work Phone: [facility] Work Phone: 01-25-2004 varicella virus vaccine Shannan Stinson APRN.PHARMACY SALESPERSON Work Phone: [facility] Work Phone: 10-18-2003 hepatitis B vaccine, pediatric or pediatric/adolescent dosage Maegan Stinson APRN.PHARMACY SALESPERSON Work Phone: [facility] Work Phone: 06-21-2003 diphtheria, tetanus toxoids and acellular pertussis vaccine, unspecified formulation Maegan Stinson APRN.PHARMACY SALESPERSON Work Phone: [facility] Work Phone: 06-21-2003 haemophilus influenz ae type b vaccine, conjugate unspecified formulation Maegan Stinson APRN.PHARMACY SALESPERSON Work Phone: [facility] Work Phone: 06-21-2003 pneumococcal conjuga te vaccine, 7 valent Maegan Stinson APRN.[facility] Work Phone: [facility] Work Phone: 04-09-2003 diphtheria, tetanus toxoids and acellular pertussis vaccine, unspecified formulation Maegan Stinson APRN.[facility] Work Phone: [facility] Work Phone: 04-09-2003 haemophilus influenz ae type b vaccine, conjugate unspecified formulation Maegan Stinson APRN.PHARMACY SALESPERSON Work Phone: [facility] Work Phone: 04-09-2003 pneumococcal conjuga te vaccine, 7 valent Maegan Stinson APRN.[facility] Work Phone: [facility] Work Phone: 04-09-2003 poliovirus vaccine, inactivated Maegan Stinson APRN.PHARMACY SALESPERSON Work Phone: [facility] Work Phone: 02-01-2003 diphtheria, tetanus toxoids and acellular pertussis vaccine, unspecified formulation Maegan Stinson APRN.PHARMACY SALESPERSON Work Phone: [facility] Work Phone: 02-01-2003 haemophilus influenz ae type b conjugate and Hepatitis B vaccine Maegan Stinson APRN.PHARMACY SALESPERSON Work Phone: [facility] Work Phone: 02-01-2003 pneumococcal conjuga te vaccine, 7 valent Maegan Milad IRB COMPLIANCE COORDINATOR.PHARMACY SALESPERSON Work Phone: [facility] Work Phone: 02-01-2003 poliovirus vaccine, inactivated Maegan Stinson IRB COMPLIANCE COORDINATOR.PHARMACY SALESPERSON Work Phone: [facility] Work Phone: 2002 hepatitis B vaccine, pediatric or pediatric/adolescent dosage Maegan Stinson IRB COMPLIANCE COORDINATOR.PHARMACY SALESPERSON Work Phone: [facility] Work Phone: Payers Date Payer Category Payer Unknown [id number] 2024 Self-pay 2022 Unknown [id number] 2022 Medicaid [id number] 2021 Private Health Insurance EHP AET NA EHP STAFF/NON STAFF / EHP [facility] [id number] 2021-Present [address] [place] [address] EPO [id number] 2021 Private Health Insurance [id number]. [id number] 2021 Medicaid [employer] [id number] 2021-Present [phone] [address] [place] [address] Medicaid [id number]. [id number] 2021 Medicaid [id number]. 1.13.159.2. [id number] 2002 Unknown [id number] 2.16.840.1.559974.3.579.2. 479 Unknown [id number] Unknown [id number] 2.16.840.1.178868.3.579.2. 462 Unknown [id number] 2.16.840.1.241895.3.579.2. 462 Unknown [id number] 2.16.840.1.456399.3.579.2. 462 Unknown [id number] 2.16.840.1.130209.3.579.2. 462 Unknown [id number] 2.16.840.1.819134.3.579.2. 462 Unknown [id number] 2.16.840.1.336840.3.579.2. 462 Unknown [id number] 2.16.840.1.057797.3.579.2. 462 Unknown [id number] 2.16.840.1.546106.3.579.2. 462 Unknown [id number] 2.16.840.1.631466.3.579.2. 462 Unknown [id number] 2.16.840.1.022986.3.579.2. 462 Unknown [id number] 2.16.840.1.569244.3.579.2. 462 Unknown [id number] 2.16840.1.357349.3.579.2. 462 Unknown [id number] 2.16.840.1.588538.3.579.2. 462 Unknown [id number] 2.16.840.1.802620.3.579.2. 462 Unknown [id number] 2.16840.1.128459.3.579.2. 462 Unknown [id number] 2.16.840.1.383244.3.579.2. 462 Unknown [id number] 2.16.840.1.848333.3.579.2. 462 Unknown [id number] 2.16.840.1.571795.3.579.2. 462 Unknown [id number] 2.16.840.1.447480.3.579.2. 462 Unknown [id number] 2.16.840.1.235256.3.579.2. 462 Unknown [id number] 2.16.840.1.509776.3.579.2. 462 Unknown [id number] 2.16.840.1.576736.3.579.2. 462 Unknown [id number] 2.16.840.1.269578.3.579.2. 462 Unknown [id number] 2.16.840.1.569288.3.579.2. 462 Unknown [id number] 2.16840.1.015012.3.579.2. 462 Unknown [id number] 2.840.1.566948.3.579.2. 462 Unknown [id number] 2.840.1.067948.3.579.2. 462 Unknown [id number] 2.840.1.637752.3.579.2. 462 Unknown [id number] 2.840.1.627328.3.579.2. 462 Unknown [id number] 2.840.1.635136.3.579.2. 462 Unknown [id number] 2.840.1.477074.3.579.2. 462 Unknown [id number] 2.840.1.541255.3.579.2. 462 Unknown [id number] 2.840.1.045908.3.579.2. 462 Unknown [id number] 2.840.1.189111.3.579.2. 462 Unknown [id number] 2.840.1.811256.3.579.2. 462 Unknown [id number] 2.840.1.085584.3.579.2. 462 Unknown [id number] 2.16840.1.180822.3.579.2. 462 Unknown [id number] 2.16840.1.101640.3.579.2. 462 Unknown [id number] 2.840.1.019107.3.579.2. 462 Unknown [id number] 2.16.840.1.653131.3.579.2. 462 Unknown [id number] 2.16.840.1.046350.3.579.2. 462 Unknown [id number] 2.16.840.1.051156.3.579.2. 462 Unknown [id number] 2.16.840.1.047734.3.579.2. 462 Unknown [id number] 2.16.840.1.475573.3.579.2. 462 Unknown [id number] 2.16.840.1.440746.3.579.2. 462 Unknown [id number] 2.16.840.1.718748.3.579.2. 462 Unknown [id number] 2.16.840.1.453478.3.579.2. 462 Unknown [id number] 2.16.840.1.514034.3.579.2. 462 Unknown [id number] 2.16.840.1.614849.3.579.2. 462 Unknown [id number] 2.16.840.1.503167.3.579.2. 462 Unknown [id number] 2.16.840.1.318745.3.579.2. 462 Unknown [id number] 2.16.840.1.704093.3.579.2. 462 Unknown [id number] 2.16.840.1.264841.3.579.2. 462 Unknown [id number] 2.16.840.1.478049.3.579.2. 462 Social History Date Type Detail Facility Start: 12-30-2021 End: 05-21-2023 Tobacco smoking status NHIS Never smoked tobacco [facility] Start: 12-30-2021 End: 05-21-2023 Tobacco use and exposure Smokeless tobacco non-user [facility] Start: 12-30-2021 End: 01-24-2024 Alcohol intake Ex-drinker (finding) [facility] Start: 2000 Sex Assigned At Female C [facility] Start: 02-22-2022 End: 07-22-2022 Exposure to SARS-CoV-2 (event) Not sure [facility] Start: 03-22-2022 End: 07-10-2022 History SDOH Alcohol Frequency 3 [facility] Start: 03-22-2022 History SDOH Alcohol Std Drinks 1 [facility] Start: 03-22-2022 End: 07-10-2022 History SDOH Social Connections Phone 2 [facility] Start: 03-22-2022 History SDOH Social Connections Living 98 [facility] Start: 03-22-2022 History SDOH Physica l Activity DPW 5 [facility] Start: 04-10-2022 End: 04-16-2022 Alcohol intake Current drinker of alcohol (finding) [facility] Start: 04-10-2022 History SDOH Alcohol Comment social [facility] Start: 11-13-2022 [facility] Start: 04-20-2023 End: 05-21-2023 History of Social function [facility] Start: 04-20-2023 End: 05-21-2023 Tobacco use panel [facility] Adult Depression Screening Assessment 4 [facility] At any time in the past 12 months, were you homeless or living in residential [including now]? No [facility] Start: 09-19-2021 Gender identity Identifies as female gender (finding) [facility] Start: 09-19-2021 Sexual orientation Heterosexual (fin ding) [facility] Are you now , , , , never or living with a partner? Refused [facility] How hard is it for y ou to pay for the very basics like food, housing, medical care, and heating Somewhat hard [facility] Do you feel stress - tense, restless, nervous, or anxious, or unable to sleep at night because your mind is troubled all the time - these days [OSQ] To some extent [facility] (I/We) worried reji er (my/our) food would run out before (I/we) got money to buy more. Never true [facility] NEGATED: Highlighted rowStart: NINF History of tobacco use Passive smoker [facility] Goals Date Patient Goal Desired Activity /State Personal health goal Clinical Notes 02-03-2022 to 02-22-2025 Elizabeth Robertson MD - 07/12/2024 10:34 AM Linda Pagan APRN.PHARMACY SALESPERSON - 07/11/2024 12:43 PM Bharathi Ness MD - 01/24/2024 3:25 PM Jeannine Garcia APRN.PHARMACY SALESPERSON - 11/23/2023 12:08 PM EST Note Date & Type Note Facility 02-22-2025 Note HNO ID: [id number] Author: MAGDA CARRANZA MA Service: ? Author Type: International Trade Analyst Type: Progress Notes Filed: 02/22/2025 14:37 Note [...] Carranza MA February 22, 2025 2:35 PM [facility] 02-22-2025 Note Patient Outreach (NE TNAV) NATA QUEZADA ([id number]) 02 F [facility] Date Time Provider Department 02/22/25 [...] Encounter Status:Closed by MAGDA CARRANZA on 02/22/25 [facility] 07-12-2024 Note HNO ID: [id number] Author: ELIZABETH ROBERTSON MD Service: ? Author Type: Physician Type: Progress Notes Filed: 07/12/2024 10:43 Note Text: Nata QUEZADA is a 23 year old female who presented for estimation manager ultrasound today. Encounter Diagnosis ICD-10-CM 1. Pelvic pain in female R10.2 Please see report under imaging tab. Elizabeth Robertson MD July 12, 2024 10:34 AM [facility] 07-12-2024 History of Presen t illness Narrative Nata QUEZADA is a 23 year old female who presented for estimation manager ultrasound today. Encounter Diagnosis ICD-10-CM 1. Pelvic pain in female R10.2 Please see report under imaging tab. 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 Nata QUEZADA presents today for IUD check. She had a Paraguard placed on 10/01/2023. She has had pain since placement. Patient reported ultrasound 07/11/2024, reported unable to locate strings. REVIEW OF SYSTEMS: PAIN ASSESSMENT: Negative for pain, history of chronic pain, or current treatment for a chronic pain condition. SENSITIVE EXAM: The sensitive examination was discussed with the Patient or Patient's Authorized Switch Engineer. As applicable, any other physician, advance practice provider, medical student, or other health professional student that will be observing or involved in the sensitive examination for educational or training purposes was discussed with the Patient or Authorized Switch Engineer. The Patient or Authorized Switch Engineer has agreed to proceed with the sensitive [...] 3 - Low documented in this encounter [facility] 07-11-2024 Note HNO ID: [id number] Author: LINDA MÁRQUEZ APRN.CNP Service: ? Author Type: Nurse Practitioner Type: Progress Notes Filed: 07/11/2024 13:01 Note Text: Joanne declined weave room supervisor. Nata QUEZADA presents today for IUD check. She had a Paraguard placed on 10/01/2023. She has had pain since placement. Patient reported ultrasound 07/11/2024, reported unable to locate strings. REVIEW OF SYSTEMS: PAIN ASSESSMENT: Negative for pain, history of chronic pain, or current treatment for a chronic pain condition. SENSITIVE EXAM: The sensitive examination was discussed with the Patient or Patient's Authorized Switch Engineer. As applicable, any other physician, advance practice provider, medical student, or other health professional student that will be observing or involved in the sensitive examination for educational or training purposes was discussed with the Patient or Authorized Switch Engineer. The Patient or Authorized Switch Engineer has agreed to proceed with the sensitive examination. (Sensitive examination includes inspection and/or palpation of the breasts, pelvis, prostate and anorectal regions). PHYSICAL EXAMINATION: [facility] 01/04/2024 ABDOMEN:soft, non-tender, no masses, no hepatosplenomegaly, [...] Medical Decision Making Level: 3 - Low [facility] 01-24-2024 History of Presen t illness Narrative Cargo Tank Mechanic offered: Patient declines. Nata QUEZADA presents today [...] L1 SAB0 IAB0 Ectopic0 Multiple0 Live Births1 Roads Superintendent History LMP: 01/04/2024 (Exact Date), IUD Age at Menarche: 15 Age at First : Age at Menopause: Roads Superintendent History Comments: Sexual Activity: Not Currently; Male [...] external genitalia normal, normal Bartholin's glands, urethra, Scammon's glands, no vulvar lesions, no cervical lesions, [...] Bharathi Estrada MD documented in this encounter [facility] 11-23-2023 History of Presen t illness Narrative [...] 22 year old female who presents to [facility] walk in clinic for the following: [...] 22 year old female who presents to [facility] walk in clinic for UTI Sx [...] or fail to improve. Signed: Jeannine Merrill APRN.VIRGEN [facility] spent a total of 25 minutes on the date of the service which included preparing to see the patient, [id number] patient care, completing clinical documentation, obtaining and/or reviewing separately obtained history, performing a medically appropriate examination, counseling and educating the patient/family/caregiver, and ordering medications, tests, or procedures. documented in this encounter [facility] 09-14-2023 Miscellaneous Notes Addended by: REMI POWELL on: 09/14/2023 03:28 PM Modules accepted: Orders documented in this encounter [facility] 09-14-2023 History of Presen t illness Narrative VISIT Nata Penaloza is a 22 year old year old here for visit. Delivery Summary: Yaz Oseas Gonzáleslow [[id number]] Delivery Information: Delivery Date: 07/28/23 Delivery type: Vaginal, Spontaneous Delivering Clinician: Yodit Fuchs MD Vacuum Used: No Forceps Used: No Shoulder Dystocia Present: No Lacerations: 1st Episiotomy: None : Gender: Male Weight (grams): 2772 g One Minute : 9 Five Minute : 9 ROS/ Recovery: Feeding: Breast and bottle feeding problems: None Menses since delivery: none Menstrual pattern prior to : Regular periods [place] since delivery: Resumed Depression: denies symptoms of [...] external genitalia normal, normal Bartholin's glands, urethra, Scammon's glands, no vulvar lesions, no cervical lesions, [...] Follow up: RTC for insertion of IUD Watt Sozen, MD documented in this encounter [facility] 08-20-2023 Miscellaneous Notes Summary: call back OB Post Discharge Patient Call Back: Date: 08/20/2023 Patient Name: Nata Penaloza : 2000 Delivery Summary: Oseas Quezada [[id number]] Delivery Information: Delivery Date: 07/28/23 Delivery type: Vaginal, Spontaneous Delivering Clinician: Yodit Fuchs MD Vacuum Used: No Forceps Used: No Shoulder Dystocia Present: No Lacerations: 1st Episiotomy: None : Gender: Male Weight (grams): 2772 g One Minute : 9 Five Minute : 9 Patient was contacted after her inpatient discharge from [facility]. She reported the following as it relates [...] in: Bassinet Baby in need of a crib/Seus-xjj-Elqb: No Baby's feeding: Method: Human milk only. Breast Feeding Problems: Per Nata, no problems BF but is also starting to pump and feed the EBM back to baby via bottle. Frequency: Within Normal Limits Education: N/A Baby's elimination habits: Average wet diapers: Within Normal Limits Average dirty diapers: Within Normal Limits Education: N/A Follow-up appointments: Scheduled appointment with a provider relations rep: Has seen Scheduled a follow up appointment with OB provider: Has seen Suggestions/Concerns: Things that could have been done better during your stay: N/A Current concerns: N/A Referral(s): Patient referred to: Nata was given the department's phone number as she stated that she did not have it incase she may need it in the future. Adilia Kirkpatrick RN documented in this encounter [facility] 08-19-2023 Instructions Elysia Collier MD - 08/19/2023 [...] Committee Opinion No. 670, May 2016. [employer] Gonsalo ROMERO, Jyothi J, Dony AL, Renetta YOU, Lauryn Montes MS. Contraceptive Technology. rev. ed. [place]: [employer] / ?.??; 2010 Gujossue SE, Roshni DK, Alexei G, Greg PA, Cory M, [place] KP. Lactogenesis after early use of the contraceptive implant: a randomized controlled trial. Obstetrics & Gynecolog 2011;117:1114-21 Belen AriasD, Yinka ER, Guzman AM, Tobi JM, Peter T, Krystina EF. Insertion of Levonorgestrel-intrauterine system at three time periods:a prospective randomized engine pilot study. Contraception 2011;84:244-8. Patty BA, Amena M, Ernesto JL, Stepan HL, Denilson VAUGHN, Aldo ÁLVAREZ. Postplacental or delayed insertion of the levonorgestrel intrauterine device after vaginal delivery: a randomized controlled trial. Obstetrics & Gynecology 2010;116:1079-87. Up to Date: Intrauterine Contraception: Devices, Candidates and Selection, updated 04/02/17. Up to Date: Etonorgestrel Contraceptive Implant, updated 08/07/16 documented in this encounter [facility] 08-19-2023 History of Presen t illness Narrative EARLY VISIT Nata Penaloza is a 22 year old here for 3 week visit. Cargo Tank Mechanic offered: Patient declines. Delivery Summary: Oseas Quezada [[id number]] Delivery Information: Delivery Date: 07/28/23 Delivery type: Vaginal, Spontaneous Delivering Clinician: Yodit Fuchs MD Vacuum Used: No Forceps Used: No Shoulder Dystocia Present: No Lacerations: 1st Episiotomy: None [place]: Gender: Male Weight (grams): 2772 g One [...] in bassinet/crib in parent's room, feels rested [place] since delivery: Not resumed Emotional support: Yes [...] Elysia Collier MD documented in this encounter [facility] 08-04-2023 History of Presen t illness Narrative BP 128/78 manual, 138/90 by home electronic cuff. Report to Dr. Collier who reviewed patient's Rhapsodyt message with reported pressures from home. No new orders at this time. Patient to continue taking and recording home pressures and report them on Wednesday before lunch, to call or go in to triage for >150/>105. Patient verbalizes understanding and agreement with POC. Rajni Parmar RN documented in this encounter [facility] 07-30-2023 Note HNO ID: [id number] Author: Jenni Brady CPhT Service: Pharmacy Author Type: Registered Nurse Supervisor Type: Plan of Care Filed: 07/30/2023 11:20 AM Note Text: PHARMACY BEDSIDE DELIVERY SERVICE Patient Name: Nata Penaloza The marked outpatient medications were Filled at: [facility] and delivered to the patient's bedside to [...] Provider. Jenni Brady CPhT PAGER: Jenni Brady [phone] 07/30/23 11:20 AM July 30, 2023 11:19 AM [facility] 07-30-2023 Note HNO ID: [id number] Author: Delaney Durand APRN.CNM Service: Obstetrics Author Type: Live Truck Technician Type: Progress Notes Filed: 07/30/2023 7:26 AM [...] DATE: July 30, 2023 TIME: 7:25 AM [facility] 07-30-2023 Note HNO ID: [id number] Author: An Azevedo MD Service: Obstetrics Author [...] DATE: July 30, 2023 TIME: 6:26 AM [facility] 07-29-2023 Note HNO ID: [id number] Author: Delaney Durand APRN.CNM Service: Obstetrics Author Type: Live Truck Technician Type: Progress Notes Filed: 07/29/2023 7:37 AM [...] DATE: July 29, 2023 TIME: 7:22 AM [facility] 07-29-2023 Miscellaneous Notes Please schedule a one week BP check. Thanks Delaney Baer APRN.CNM documented in this encounter [facility] 07-29-2023 Note HNO ID: [id number] Author: An Azevedo MD Service: Obstetrics Author [...] DATE: July 29, 2023 TIME: 6:09 AM [facility] 07-28-2023 Note HNO ID: [id number] Author: Carie Botello DO Service: Obstetrics Author Type: Resident Type: Progress Notes Filed: 07/28/2023 8:01 AM Note Text: Patient pushing. Dr. Fuchs in house. SIGNATURE: Carie Botello DO PATIENT NAME: Nata Penaloza DATE: 07/28/2023 TIME: 8:01 AM PAGER/CONTACT #: [phone] [facility] 07-28-2023 Note HNO ID: [id number] Author: Ada Baird MD Service: Obstetrics Author [...] Moderate (6-25 bpm) (07/28/23 0700 : Ashlyn Palmer, [facility]) Accelerations: Absent (07/28/23 0700 : Ashlyn Palmer [...] :38 AM Ada Baird MD :35 AM [facility] 07-28-2023 Note HNO ID: [id number] Author: Radha Bran DO Service: Obstetrics Author [...] DATE: July 28, 2023 TIME: 6:14 AM [facility] 07-28-2023 Note HNO ID: [id number] Author: Radha Bran DO Service: Obstetrics Author [...] Artificial ROM after labor (07/28/23442 : Radha Bran, ) SVE performed /-2, head well applied. heart [...] DATE: July 28, 2023 TIME: 4:44 AM [facility] 07-28-2023 Note HNO ID: [id number] Author: Rodri French APRN.BLENDING TANK TENDER HELPER Service: Anesthesiology Author Type: Nurse Oil Well Service Operator Helper Type: Anesthesia Procedure Notes Filed: 07/28/2023 2:40 AM Note Text: ANESTHESIOLOGY PROCEDURE NOTE Epidural Block General Information Procedure Start Time/Medication Administration: 07/28/2023 2:05 AM Patient location during procedure: [facility] room Timeout Performed Pre-procedure: timeout performed Consent Obtained: Yes Patient identity confirmed: arm band, care sales floor team leader and patient Reason for block: labor epidural Staffing BLENDING TANK TENDER HELPER: Rodri French APRN.BLENDING TANK TENDER HELPER Performed by: [place] Preparation Sterility Preparation: hand [...] tolerated well without discomfort SIGNATURE: Rodri French APRN.BLENDING TANK TENDER HELPER PATIENT NAME: Nata Penaloza DATE: July 28, 2023 TIME: 2:39 AM CSN: [id number] [facility] 07-28-2023 Note HNO ID: [id number] Author: Coral Freeman MD Service: Obstetrics Author [...] (07/28/23142 : Leelee Saini MD) Station: -2 (07/28/23 0143 : Leelee Saini MD) Presentation: (not recorded) [...] DATE: July 28, 2023 TIME: 1:49 AM [facility] 07-28-2023 Note HNO ID: [id number] Author: Coral Freeman MD Service: Obstetrics Author [...] recorded) MEMBRANES: Status: Membrane Status: Intact (07/27/23 2257 : Coral Freeman MD) FHT: 120/Moderate (6-25 [...] DATE: July 27, 2023 TIME: 10:58 PM [facility] 07-27-2023 Note HNO ID: [id number] Author: Leelee Saini MD Service: Obstetrics Author [...] Estimated Blood Loss: None Leelee Saini MD [facility] 07-27-2023 History of Past i llness Narrative Problem Noted Date Diagnosed Date Resolved Date Encounter for induction of labor 07/27/2023 07/28/2023 Overview: - GBS negative - Pitocin per standard dose protocol - Epidural in place - Amniotomy at 0440, clear fluid - s/p cytotec and fihser balloon - No growth 38 weeks gestation of 07/26/2023 07/29/2023 Recurrent syncope 04/11/2022 07/27/2023 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 documented as of this encounter (statuses as of 07/29/2023) [facility]10[facility] History of Past illness Narrative* Problem Noted [...] of this encounter (statuses as of 08/04/2023) [facility] History of Past illness Narrative* Problem Noted [...] of this encounter (statuses as of 08/05/2023) [facility] History of Past illness Narrative* Problem Noted [...] of this encounter (statuses as of 08/20/2023) [facility] History of Past illness Narrative* Problem Noted [...] of this encounter (statuses as of 08/21/2023) [facility] History of Past illness Narrative* Problem Noted [...] of this encounter (statuses as of 09/15/2023) [facility] History of Past illness Narrative* Problem Noted [...] of this encounter (statuses as of 11/23/2023) [facility]10-23-2023 NoteHNO ID: [id number] Author: Darling Rust DO Service: Obstetrics Author Type: Resident Type: Progress Notes Filed: 07/26/2023 8:51 PM Note Text: Return precautions for pre-eclampsia reviewed including DOMINGUEZ not responsive to tylenol, vision changes, SOB, CP, RUQ pain, and BP reading greater than 150/100. Patient verbalized understanding. Darling Rust [facility]10-23-2023 NoteHNO ID: [id number] Author: Elizabeth Storey DO Service: ? Author [...] GLUC 71* CA 9.0 UPC 0.1 07/26/23 1845 07/26/23 1900 07/26/23 1915 07/26/23 1930 BP: 139/98 146/105 152/103 133/90 SpO2: Patient discharged home in stable condition with plan to make appointment for bp check in the morning Reviewed with Dr. Baird and Dr. Shantal Storey DO [facility] Emergency Medicine [facility] NoteHNO ID: [id number] Author: Ada Baird MD Service: Obstetrics Author Type: Physician Type: Procedures Filed: 07/26/2023 8:28 PM Note Text: OBSTETRICS NST SUMMARY SERVICE DATE: July 26, 2023 The patient is a 22 year old female, , who is at 38w3d with an EVAN of 08/06/2023, by Last Menstrual Period dating method. NST OBJECTIVE FINDINGS PER NURSE: Start Time: 1800 (07/26/231899 : Chacha Gutiérrez RN) Complete Time: 1899 (07/26/231899 : Chacha Gutiérrez RN) Indications: (r/o pre e) (07/26/231899 : Chacha Gutiérrez RN) Patient Reason For: monitor baby (07/26/231899 : Chacha Gutiérrez RN) NST Explanation: Monitor Explained;Procedure Explained;Verbalizes Understanding [...] forwarded to Dr. Baird (07/26/231899 : Chacha Gutiérrez RN) for final review and interpretation. SIGNATURE: Chacha Gutiérrez RN PATIENT NAME: Nata Penaloza DATE: July 26, 2023 TIME: 7:19 PM PROVIDER INTERPRETATION: Reactive SIGNATURE: Ada Baird MD DATE: July 26, 2023 TIME: 8:28 [facility]10-23-2023 NoteHNO ID: [id number] Author: Elizabeth Storey DO Service: Obstetrics Author [...] July 26, 2023 TIME: 6:41 [facility]10-23-2023 Miscellaneous Notes* Telephone Encounter - Jessie [...] understanding. Jessie Whaley LPN documented in this [facility]10-20-2023 History of Present illness Narrative* Remi Powell MD - 07/23/2023 3:16 PM EDT Please refer to quick note and flow sheet. Remi Powell MD documented in this [facility]10-20-2023 Miscellaneous Notes* Quick Notes - Remi Powell [...] day. Remi Powell MD documented in this [facility]10-20-2023 Nurse Note* Karli Pineda Ma - 07/23/2023 2:52 PM EDT Movement? Active baby Vaginal Bleeding: NO Vaginal fluid leakage of fluid: NO Contractions: Carmelo-Manning type documented in this [facility]10-20-2023 History of Present illness Narrative* Georgiana Kasper MA - 07/23/2023 12:02 PM EDT POPULATION HEALTH NAVIGATION OUTREACH Action/FYI Called and spoke with pt and confirmed/updated provider relations rep. Patient Identified by Name and : YES, via phone Outreach Outcome/Action OB/PEDS field updated Did you use a PCP flex slot to schedule this appointment? N/A Reason for Outreach [place] Payer: Payor: [employer] / Plan: [facility] STAFF/NON STAFF / Product Type: EPO / [...] 23, 2023 12:03 PM documented in this [facility]10-14-2023 History of Present illness Narrative* Remi Powell MD - 07/17/2023 12:37 PM EDT Please refer to quick note and flow sheet. Remi oPwell MD documented in this [facility]10-14-2023 Miscellaneous Notes* Quick Notes - Remi Powell MD - 07/17/2023 12:36 PM EDT Here for routine Visit at 37w1d. No complaints. Good movement. No vaginal bleeding, leakage of fluids, contractions. Ob education done, questions answered. GBS done. Remi Powell MD documented in this [facility]10-13-2023 Nurse Note* Kinza Fuchs Ma - 07/16/2023 3:14 PM EDT Movement? Active baby Vaginal Bleeding: NO Vaginal fluid leakage of fluid: NO Contractions: no contractions documented in this [facility]09-28-2023 History of Present illness Narrative* Remi Powell MD - 07/01/2023 6:23 PM EDT Please refer to quick note and flow sheet. Remi Powell MD documented in this [facility]09-28-2023 Miscellaneous Notes* Quick Notes - Remi Powell MD - 07/01/2023 6:22 PM EDT Here for routine Visit at 34w6d. No complaints. Good movement. No vaginal bleeding, leakage of fluids, contractions. Ob education done, questions answered. BP wnl. GBS next visit. Remi Powell MD documented in this [facility]09-28-2023 Nurse Note* Kinza Fuchs Ma - 07/01/2023 3:32 PM EDT Movement? Active baby Vaginal Bleeding: NO Vaginal fluid leakage of fluid: NO Contractions: no contractions documented in this [facility]09-23-2023 History of Present illness Narrative* Elysia Collier MD - 06/26/2023 4:10 PM EDT Please refer to flow sheet and comments for OB note. Elysia Collier MD documented in this [facility]09-22-2023 Miscellaneous Notes* Quick Notes - Elysia [...] accepts. Elysia Collier MD [facility] Note* Karli Pineda Ma - 06/25/2023 3:17 PM EDT Movement? Active baby Vaginal Bleeding: NO Vaginal fluid leakage of fluid: NO Contractions: no contractions [facility] History of Present illness Narrative* Tonya Gerardo APRN.PHARMACY SALESPERSON - 05/26/2023 6:53 PM EDT This note was created using [employer]. Subjective Nata Penaloza is a 22 year old female. 22 year old female with PMH T & A who is currently 29 weeks (G1) gestational presents with complaints of illness. Sore throat Acute onset 05/18/23 Seen @ [facility], strep negative COVID negative Presents today with continued sx. Denies eye, ear, or nose complaints. Denies cough. Vaginal discharge Slightly yellow +odorous Denies vaginal bleeding. Denies sx. Denies abdominal cramping. 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 The history is provided by the patient. No supervisor modern languages was used. Sore Throat This is a [...] mouth once daily as needed for nausea/vomiting. [id number] 27 mg iron-800 mcg-260 mg Take 1 [...] patient that express care does not handle WOUND/OSTOMY CLINICAL NURSE SPECIALIST complaints, She is to call her WOUND/OSTOMY CLINICAL NURSE SPECIALIST first thing in morning for evaluation and management. Verbalized understanding. Tonya Gerardo APRN.CNP documented [facility] History of Present illness Narrative* Remi Powell MD - 05/21/2023 9:00 AM EDT Please refer to quick note and flow sheet. Remi Powell MD documented [facility] Miscellaneous Notes* Quick Notes - Remi Powell MD - 05/21/2023 9:00 AM EDT Here for routine Visit at 29w0d. No complaints. Good movement. No vaginal bleeding, leakage of fluids, contractions. Ob education done, questions answered. CBC and Tdap today. Remi Powell MD documented [facility] this [facility] Nurse Note* Ghislaine Baltazar MA - 05/21/2023 8:44 AM EDT Movement? Active baby Vaginal Bleeding: NO Vaginal fluid leakage of fluid: NO Contractions: no contractions documented in this [facility] Instructions* Patient Instructions* Jerri Saab APRN.VIRGEN - 05/19/2023 3:31 PM EDT Patient education: [...] the spread of infection. documented in this [facility] History of Present illness Narrative* Jerri Saab APRN.CNP - 05/19/2023 3:02 PM EDT Images from the original note were not included. CC: 5/10 sore throat since yesterday The history is provided by the patient The patient's preferred language is Filipino PAST MEDICAL HISTORY Diagnosis Date No pertinent [...] follow-ups on file. Signed: RA Armando [facility] I spent a total of 15 minutes on the date of the service which included preparing to see the patient, hdqv-ov-gqym patient care, completing clinical documentation, obtaining and/or reviewing separately obtained history, performing a medically appropriate examination, counseling and educating the pat ient/family/caregiver, and ordering medications, tests, or procedures. documented in this [facility] Miscellaneous Notes* Quick Notes - Orlando Burroughs MD - 04/20/2023 8:24 AM EDT 1 hour, W/O complaint, No LOF, No Ctx's, No Vag bleed. Juana Burroughs MD documented in this [facility] Nurse Note* Kinza Fuchs Ma - 04/20/2023 8:19 AM EDT Movement? Active baby Vaginal Bleeding: NO Vaginal fluid leakage of fluid: NO Contractions: no contractions documented in this [facility]23 History of Present illness Narrative* Remi Powell MD - 02/02/2023 2:56 PM EDT Please refer to quick note and flow sheet. Remi Powell MD documented in this [facility]23 Miscellaneous Notes* Quick Notes - Remi Powell MD - 02/02/2023 2:54 PM EDT Here for routine Visit at 13w4d. No complaints. No vaginal bleeding, leakage of fluids, contractions. Ob education done, questions answered. Labs reviewed. Remi Powell MD documented [facility] this [facility]23 Miscellaneous Notes* Telephone Encounter - Melony Bryan [...] results will be released on 02/05/ to [facility] and not to look if she [...] results. Melony Bryan RN documented in this [facility]23 Nurse Note* Kinza Fuchs Ma - 01/29/2023 8:11 AM EDT Movement? 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 Remi Powell MD documented in this encounter[facility]23 Instructions* Patient Instructions* Remi Powell MD - 12/25/2022 10:05 AM EDT Please select the following link to access the [facility] Your Guide to a Healthy . [email or web address] documented in this [facility]03-24-2023 Nurse Note* Ghislaine Baltazar MA - 12/25/2022 9:37 AM EDT Movement? Too early Vaginal Bleeding: NO Vaginal fluid leakage of fluid: NO Contractions: no contractions documented in this [facility]02-27-2023 Instructions* Patient Instructions* Maegan Morrissey PA-C - 11/30/2022 12:38 PM EST OB-CELL INSTALLER [phone] documented in this [facility]02-27-2023 History of Present illness Narrative* Maegan Morrissey PA-C - 11/30/2022 12:16 PM EST Images from the original note were not included. Medicine [place] Department of General Internal Medicine [facility] Outpatient Visit Date: November 30, 2022 CC: Patient presents with: Testing: Home test positive; pt seeking confirmation and next steps HPI: Nata Penaloza is a 21 year old female who presents today to the [address] walk in clinic for concerns regarding a [...] ICD9: V72.42, ICD10: Z32.01 - CONSULT TO WOUND/OSTOMY CLINICAL NURSE SPECIALIST - Urine HCG positive in office today. [...] plan. Maegan Morrissey PA-C documented in this encounter[facility]02-07-2023 Miscellaneous Notes* Telephone Encounter - JERI Barahona - 11/10/2022 9:35 AM EST I called Nata about the IOP at the request of Rajni Evans. She declined. documented in this encounterSelect [facility]23 History of Present illness Narrative* EMIGDIO Tinoco - 11/03/2022 3:00 PM EST GENERAL PSYCHOLOGY Virtual Visit Verified that patient is in [facility]. This provider is also in the [facility] Patient was seen for an initial [...] Together 3 months. 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 Stopped that job, moved to [place], but has moved back. PAST MEDICAL HISTORY [...] No Known Allergies REFERRAL SOURCE: Psychiatrist - PROSTHETIC LAB TECHNICIAN CHIEF COMPLAINT: Reconsolidation. Therapist. HPI: was seeing another therapist who referred to me- meaning PROSTHETIC LAB TECHNICIAN. Thought it would be helpful for me [...] past couple years, both short term and penitentiary Anxiety: moderate and gets overwhelming feeling of [...] Eating D/o Prior Psychiatrist: Followed here at [facility] by Frida Gamboa Therapist: No prior therapist Current Opto Mechanical Engineer: None Last Hospitalization: None SUICIDE RISK ASSESSMENT: [...] sister. The patient wasborn and raised in [place] [facility] [place] 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 She described her childhood as loving, supportive, [...] Legal: Pt. denied any past legal history Spirituality/Church: spiritual, believes in Gd Flashbacks + when [...] Talking about future goals or plans and Xtwe-tzedlaz-cdvv-rejecting - Perceptions: The patient does not appear [...] that level of care. Patient expressed understanding [facility] providers are asked to provide short-term therapy, [...] Patient was encouraged to follow up with PROSTHETIC LAB TECHNICIAN and discuss concerns re medication Pt was encouraged to consider IOP Pt would be served by referral to penitentiary therapy after IOP EMIGDIO Tinoco documented in this encounterSelect [facility]12-31-2022 Miscellaneous Notes* Telephone Encounter - Rachel Glynn - 10/03/2022 12:34 PM EST Patient given results and verbalized understanding of instructions given.nh Rachel Glynn * Telephone Encounter - Jesika Stearns PA-C - 10/03/2022 10:40 AM EST Please let her know not to drink any alcohol while on the Flagyl, will make her very ill. The Diflucan sent in yesterday should take care of the yeast. If symptoms are persisting follow-up with WOUND/OSTOMY CLINICAL NURSE SPECIALIST. * Telephone Encounter - Radha Temple LPN [...] that these need sent in. Patricia Nuno APRN.VIRGEN documented in this encounterSelect [facility]12-[facility]-2022 History of Present illness Narrative* Washington Goss APRN.VIRGEN - 10/02/2022 4:46 PM EST Subjective HPI [...] similar. Patient denies the use of any gczv-kid-ewzafyt medications or home remedies for symptom management. [...] Objective Physical Exam Exam conducted with a weave room supervisor present. Constitutional: General: She is not in [...] of care. This note was generated using [employer] software. It may contain errors in wording, punctuation, or spelling. Washington Goss APRN.PHARMACY SALESPERSON documented in this encounterSelect [facility]10-[facility]-2022 History of Present illness Narrative* Wilver Montemayor [...] 22, 2022 5:16 PM documented in this encounterSelect [facility]10-14-2022 Nurse Note* Kasia Blackmon MA - 07/17/2022 [...] not greater than 100.4F/38C):NO Denies history of Guillain-[place] Syndrome (a severe paralytic illness): NO Denies [...] LPN - 07/17/2022 4:17 PM EDT Nata Penlaoza is a 21 year old female here [...] G10: Yes, Is the patient active on [employer] Yes What is the patients preferred method of communication: Lisa Talamantes LPN documented in this encounterSelect [facility]10-14-2022 History of Present illness Narrative* Hellen Paez [...] IM Hellen Paez MD documented in this encounterSelect [facility]10-13-2022 Instructions* Patient Instructions* Elysia Campbell APRN.CNP - 07/16/2022 4:31 PM EDT Plan: Swabs done today to evaluate discharge Recommend making sure emptying bladder completely Can try hot bath to help relax pelvic floor Elysia Campbell APRN.VIRGEN documented in this encounterSelect [facility]10-[facility]-2022 History of Present illness Narrative* Elysia Campbell APRN.PHARMACY SALESPERSON - 07/16/2022 4:00 PM EDT Nata Penaloza [...] Can be painful GI - No symptoms [place] - no pain Has had some yellow discharge lately. Maybe some odor No concerns for STDs. Using condoms but accepts STD testing First sexually active at the beginning of this month. Then these symptoms all started Had to stop OCP due to mood changes Depo in the past OB History T0 L0 SAB0 IAB0 Ectopic0 Multiple0 Live Births0 Roads Superintendent History LMP: 04/01/2022, Having periods Age at Menarche: 15 Age at First : Age at Menopause: Roads Superintendent History Comments: Sexual Activity: Not Currently; Male [...] sodium chloride 0.65 % drop Use 1 Petal in the nose. (Patient not taking: Reported [...] external genitalia normal, normal Bartholin's glands, urethra, Scammon's glands, no vulvar lesions, no cervical lesions, [...] to help relax pelvic floor Elysia Campbell APRN.PHARMACY SALESPERSON Medical Decision Making: Problems: Low: Acute, uncomplicated illness or injury Data: Unique test(s) ordered: 3+ Risk: Low: Low risk from testing/treatment Medical Decision Making Level: 3 - Low [facility] History of Present illness Narrative* Wilver Montemayor [...] 08, 2022 3:34 PM documented in this encounter[facility]30[facility] History of Present illness Narrative* RT Shawn(R) [...] 03, 2022 12:27 PM documented in this encounter[facility] History of Present illness Narrative* Wilver Montemayor [...] sodium chloride 0.65 % drop Use 1 Petal in the nose. (Patient not taking: Reported [...] which included preparing to see the patient, [id number] patient care, completing clinical documentation, performing a [...] 01, 2022 5:15 PM documented in this encounterSelect [facility] History of Present illness Narrative* Carmen Ramirez [...] tinged, which is increased in the mor atcos. Sinusitis has been going on chronically, usually worse at this time of the year. Uses Flonaseand zyrtec daily. Saw PCP who looked in her ears and was concerned about some scarring. Endorses increased ear clogging and pressure recently. ALLERGIES No Known Allergies Current Outpatient Medications Medication Sig Desogestrel-Ethinyl Estradiol (MARIAELENA, 28,) 0.15-0.03 mg per tablet Take 1 [...] sodium chloride 0.65 % drop Use 1 Petal in the nose. montelukast (SINGULAIR) 10 mg [...] Level: 4 - Moderate documented in this encounterSelect [facility]-12-[facility] Nurse Note* Tori Garcia RN - 04/14/2022 3:06 PM EDT Tobacco Use: Never Was smoking cessation packet given? N/A - Patient is a non-smoker or quit >1 year ago. Was a referral initiated?N/A Patient is a non-smoker documented in this encounterSelect [facility]22 History of Present illness Narrative* Lois Petersen MA - 04/14/2022 10:41 AM EDT POPULATION HEALTH NAVIGATION OUTREACH Action/FYI April 14, 2022 Spoke with patient. We have scheduled her [facility] follow up with Maxine Zhu MD on 04.21.2022 Thank you Pt identified by name and : YES, via phone Outreach Outcome/Action Spoke to patient or caregiver: Patient scheduled Did you use a PCP flex slot to schedule this appointment? No Reason for Outreach Community Monitoring [place] Payer: Payor: EHP AETNA / Plan: EHP [...] TCM Eligible through 04/26 will forward to radiology scheduler SUMMARY: Pt discharged from [facility] on 04/12/22. Admitted for: Syncope/Nausea Contact made with patient: Yes Hi my name is Frida Champagne RN and I am calling from the [facility] on behalf of your PCP, Hellen Paez [...] like to speak with a social work sales floor team leader to help give you support [...] I will send your request to a radiology scheduler who will contact and assist you with that appointment. This will give you an opportunity to ask any questions or address any concerns youmay have with your PCP. Inform the patient that if they have any questions or concerns prior to that appointment, to call their PCP's office right away. ACTION TAKEN: Patient desires an appointment - Routed to [facility] [[phone]] for schedulingtelehealth visit (telephonic, virtual visit, or [...] PCP follow up SUMMARY: Pt discharged from [facility] on 04/12/22. Admitted for: Syncope/Nausea Contact made with patient: No - next outreach attempt will be on next day gladys Stout is Roxie dunlap registered nurse director of career resources calling from the [facility] on behalf of your primary care providers [...] TCM Home Visit Referral Source of Stratification: TCM [facility] Admission Status: Discharged Readmission Risk Score: [...] No Dialysis Patient: No documented in this encounterSelect [facility]07-08-2022 History of Present illness Narrative* Luana Nevarez [...] to ED and she agrees. Luana Nevarez APRN.CNP documented in this encounterSelect [facility]07-06-2022 History of Present illness Narrative* Maxine Dewitt APRN.CNP - 04/08/2022 11:30 AM EDT Images from the original note were not included. [facility] [place] [facility] Benign Gynecology [facility] PATIENT NAME: Nata Penaloza DATE: 04/08/2022 Patient Name and verified: Yes Patient Location: [place] This Virtual Visit was completed using [employer] Chart Zoom platform. Chief Complaint CC: control [...] active. She is on 5th floor in [facility]. Cycles are regular; bleeding during placebo week Breakthrough bleeding: No Dysmenorrhea: No Heavy flow: No Compliant: Yes Side effects: No BP: N/A Last 4 Encounter BP Readings: Date: BP: 03/31/2022 140/88[Initial Blood Pressure[ 03/04/2022 128/75 12/30/2021 104/68 OB History T0 L0 SAB0 IAB0 Ectopic0 Multiple0 Live Births0 Roads Superintendent History LMP: 02/21/2022 (Approximate), Having periods Age at Menarche: 15 Age at First : Age at Menopause: Roads Superintendent History Comments: Sexual Activity: Not Currently; Male [...] sodium chloride 0.65 % drop Use 1 Petal in the nose. montelukast (SINGULAIR) 10 mg [...] 4) Follow up PRN and for annual CELL INSTALLER exams The following approved medication requests have [...] Address Telephone [facility] [address] [address] SIGNATURE: Maxine Dewitt APRN.VIRGEN PAGER: [phone] Medical Decision Making: Problems: Moderate: 1+ chronic illnesses with change Risk: Moderate: Drug management Medical Decision Making Level: 4 - Moderate documented in this encounterSelect [facility]06-28-2022 Instructions* Patient Instructions* Angela aRy MD - 03/31/2022 4:22 PM EDT Thank you for coming in today! It was a [facility] to see you at [facility] today. Before your next [...] access care: - To reach office, call [phone] during business hours. - To schedule an appointment or with after hours health concerns, call scheduling at [phone]. - Schedule specialty appointments, call [phone] ([phone]) - For non-urgent questions and medications refills, please send me a [employer] Web message and allow 3 business days for a response or call [phone] - Labs can be done at any [facility] location, orders are active for 1 month Angela Ray MD Internal Medicine and Pediatrics Staff 03/31/22 4:23 PM documented in this encounterSelect [facility]06-28-2022 History of Present illness Narrative* Angela Ray MD - 03/31/2022 4:07 PM EDT [facility] 03/31/2022 This is a 21 year old [...] sodium chloride 0.65 % drop Use 1 Petal in the nose. montelukast (SINGULAIR) 10 mg [...] ANNUAL ASSESSMENT Never done GC (GONORRHEA) SCREENING (-) Never done HEPATITIS C SCREENING Never done HIV SCREENING Never done CHLAMYDIA SCREENING (-) Never done COVID-19 VACCINE(3 - Booster for [...] which included preparing to see the patient, [id number] patient care, completing clinical documentation, obtaining and/or reviewing separately obtained history, performing a medically appropriate examination, counseling and educating the pat ient/family/caregiver and ordering medications, tests, or procedures. Angela Ray MD documented in this encounterSelect [facility]06-28-2022 Nurse Note* MILES Eddy - 03/31/2022 3:53 [...] G10: No Is the patient active on [employer] Yes What is the patients preferred method of communication: MILES Pino documented in this encounterSelect [facility]06-07-2022 Miscellaneous Notes* Telephone Encounter - Maxine Dewitt APRN.CNP - 03/10/2022 3:17 PM EDT The following approved medication requests have been transmitted electronically. Signed Prescriptions Disp Refills Desogestrel-Ethinyl Estradiol (JATINDEREN, 28,) 0.15-0.03 mg per tablet 84 tablet 0 Sig: Take 1 tablet by mouth once daily. RONY: No Pharmacy Information Pharmacy Address Telephone [facility] [address] [phone] Appointments for Next 60 Days Date Time Provider Location Dept Phone 04/08/2022 11:30 AM MAXINE DEWITT Bldg [phone] Maxine Dewitt APRN.CNP March 10, 2022 3:17 PM documented in this encounterSelect [facility]06-01-2022 Instructions* Patient Instructions* Louann Garcia PA-C - [...] treated. A physician, nurse practitioner or physician fundraising assistant may treat with a short course [...] women if symptoms resolve. documented in this encounterSelect [facility]06-01-2022 History of Present illness Narrative* Louann Garcia PA-C - 03/04/2022 5:57 PM EDT Subjective Nata Penaloza is a 21 year old female with no significant past medical history who presents to [facility] today for evaluation of dysuria and urinary [...] which included preparing to see the patient, [id number] patient care, completing clinical documentation, performing a medically appropriate examination, counseling and educating the patient/family/caregiver and ordering medications, tests, or procedures. documented in this encounterSelect [facility]06-01-2022 History of Present illness Narrative* Romario Elias PA-C - 03/04/2022 10:29 AM EDT This is an Express Care eVisit note for Nata Penaloza eVisit/Questionnaire reviewed The chief complaint for the visit - Patient presents with: Urinary Problem Recommendations/Treatment plan - See My Chart Message to patient Romario Elias PA-C documented in this encounterSelect [facility]06-01-2022 History of Present illness Narrative* Romario Elias PA-C - 03/04/2022 10:17 AM EDT This is an Express Care eVisit note for Nata Penaloza eVisit/Questionnaire reviewed The chief complaint for the visit - Patient presents with: Urinary Problem Recommendations/Treatment plan - See My Chart Message to patient Romario Elias PA-C documented in this encounterSelect [facility]05-03-2022 History of Present illness Narrative* Maegan Stinson APRN.CNP - 02/03/2022 2:12 PM EDT This is an Express Care eVisit note for Nata Penaloza eVclaryit/Questionnaire reviewed The chief complaint for the visit - Patient presents with: UTI Recommendations/Treatment plan - See My Chart Message to patient Maegan Stinson APRN.CNP Total time spent on e-Visit: 3 minutes documented in this encounterSelect [facility] [place] [facility]* Diagnosis Treatment not available- Primary Procedure not carried out for other reasons documented in this encounter [facility] [place] [facility]* Diagnosis Leukocytes in urine- Primary Other cells and casts in urine Dysuria Urinary frequency documented in this encounter [facility] [place] [facility]* Diagnosis Encounter for initial prescription of contraceptive pills General counseling for prescription of oral contraceptives documented in this encounter [facility] [place] [facility]* Diagnosis Wellness examination- Primary 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, congenital Other specified congenital anomaly of pharynx Cleft palate, unspecified Chronic midline 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 sciatica Vasovagal syncope Syncope and collapse documented in this encounter [facility] note* Diagnosis Emergency contraception- Primary Encounter for initial prescription of contraceptive pills General counseling for prescription of oral contraceptives Decreased appetite Anorexia History of recent stressful life event documented in this encounter [facility] note* Diagnosis Procedure not carried out- Primary Procedure not carried out for other reasons documented in this encounter [facility] note* Diagnosis Allergic rhinitis, unspecified seasonality, unspecified trigger- Primary Dysfunction of both eustachian tubes Dysfunction of Eustachian tube documented in this encounter [facility] note* Diagnosis Chronic bilateral thoracic back pain- Primary documented in this encounter [facility] note* Diagnosis Chronic bilateral thoracic back pain documented in this encounter [facility] note* Diagnosis Chronic bilateral thoracic back pain- Primary Chronic bilateral 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 sciatica documented in this encounter [facility] note* Diagnosis Urinary urgency- Primary Urgency of urination Feeling of incomplete bladder emptying Incomplete bladder emptying Vaginal discharge Leukorrhea, not specified as infective Vaginal odor Unspecified symptom associated with female genital organs Urinary frequency documented in this encounter [facility] note* Diagnosis Primary insomnia- Primary Persistent disorder of initiating or maintaining sleep Cyclothymia Cyclothymic disorder Recurrent syncope Chronic maxillary sinusitis Encounter for immunization Need for other specified prophylactic vaccination against single bacterial disease documented in this encounter [facility] note* Diagnosis Chronic bilateral thoracic back pain- Primary documented in this encounter [facility] [place] [facility]* Diagnosis Urinary frequency- Primary Vaginal discharge Leukorrhea, not specified as infective documented in this encounter [facility] note* Diagnosis Bipolar II disorder (HCC)- Primary Other bipolar disorders Post traumatic stress disorder (PTSD) Posttraumatic stress disorder Eating disorder, unspecified type documented in this encounter [facility] note* Diagnosis confirmed by positive urine test- Primary examination or test, positive result Possible examination or test, unconfirmed documented in this encounter [facility] note* Diagnosis Encounter for supervision of normal first in first trimester- Primary Supervision of normal first confirmed by positive urine test examination or test, positive result documented in this encounter [facility] note* Diagnosis Encounter for supervision of normal first in first trimester- Primary Supervision of normal first IUD migration, initial encounter documented in this encounter [facility] [place] [facility]* Diagnosis Candidal vaginitis- Primary Candidiasis of vulva and vagina documented in this encounter [facility] [place] [facility]* Diagnosis Encounter for anatomic survey- Primary Encounter for screening of mother Unspecified screening documented in this encounter [facility] note* Diagnosis Encounter for supervision of normal first in second trimester- Primary Supervision of normal first 24 weeks gestation of state, incidental documented in this encounter [facility] note* Diagnosis Sore throat- Primary Acute pharyngitis Suspected COVID-19 virus infection documented in this encounter [facility] note* Diagnosis Encounter for supervision of normal first in third trimester- Primary Supervision of normal first [facility]* Diagnosis Pharyngitis, unspecified etiology- Primary documented in this encounter [facility] [place] [facility]* Diagnosis Encounter for supervision of normal in third trimester, unspecified - Primary Elevated blood pressure affecting in third trimester, antepartum Need for influenza vaccination Need for prophylactic vaccination and inoculation against influenza 34 weeks gestation of state, incidental documented in this encounter [facility] [place] [facility]* Diagnosis Encounter for supervision of normal first in third trimester- Primary Supervision of normal first documented in this encounter [facility] note* Diagnosis Encounter for supervision of normal in third trimester, unspecified - Primary documented in this encounter [facility] [place] [facility]* Diagnosis Encounter for supervision of normal in third trimester, unspecified - Primary [facility]* Diagnosis BP check- Primary Screening for hypertension [facility] [place]* Diagnosis Encounter for screening for maternal depression- Primary documented in this encounter [facility] [place] [facility]* Diagnosis care and examination- Primary Routine follow-up Cervical cancer screening Screening for malignant neoplasm of the cervix documented in this encounter [facility] [place] [facility]* Diagnosis Acute cystitis with hematuria- Primary Acute cystitis UTI symptoms Other symptoms involving urinary system documented in this encounter [facility] [place] [facility]* Diagnosis Pelvic pain in female- Primary Unspecified symptom associated with female genital organs IUD check up Surveillance of previously prescribed intrauterine contraceptive device Abnormal uterine bleeding (AUB) documented in this encounter [facility]* Diagnosis Surveillance of previously prescribed intrauterine contraceptive device- Primary documented in this encounter [facility] [place] [facility]* Diagnosis Pelvic pain in female Unspecified symptom associated with female genital organs [facility] [place]* Diagnosis Ovarian cyst, right- Primary Other and unspecified ovarian cyst documented in this encounter [facility] for referral (narrative)* Diagnostic Procedure Only (Routine) - Authorized Specialty Diagnoses / Procedures Referred By Contac t Referred To Contact XR IMAGING Diagnoses Chronic bilateral thoracic back pain Procedures XR THORACIC GENERAL 3V AP/LAT/SWIMMERS RADEX SPINE THORACIC 3 VIEWS Wilver Montemayor DC [address] [place] [address] Xr Imaging Referral ID Status Reason Start Date Expiration Date Visits Requested Visits Authorized [id number] Authorized Auto-Generat ed Referral 07/01/2022 07/31/2023 1 1 [facility] for referral (narrative)* Diagnostic Procedure Only (Routine) - Closed Specialty Diagnoses / Procedures Referred By Contac t Referred To Contact XR IMAGING Diagnoses Chronic bilateral thoracic back pain Procedures XR THORACIC GENERAL 3V AP/LAT/SWIMMERS RADEX SPINE THORACIC 3 VIEWS Wilver Motnemayor DC [address] [place] [address] Xr Imaging Referral ID Status Reason Start Date Expiration Date V isits Requested Visits Authorized [id number] Closed Auto-Generate d Referral 07/01/2022 07/31/2023 1 1 [facility] for referral (narrative)* Diagnostic Procedure Only (Routine) - Authorized Specialty Diagnoses / Procedures Referred By Contac t Referred To Contact [facility] Diagnoses Encounter for supervision of normal first in first trimester Procedures NUCHAL TRANSLUCENCY WHI US NUCHAL TRANSLUCENCY 1ST GESTATION Remi Powell MD [address] [facility] [address] [place] [address] [facility] [address] [place] [address] Referral ID Status Reason Start Date Expiration Date Visits Requested Visits Authorized [id number] Authorized Auto-Generat ed Referral 12/25/2022 12/25/2023 1 1 [facility] for referral (narrative)* Outpatient Procedure (Routine) - Authorized Specialty Diagnoses / Procedures Referred By Contac t Referred To Contact [facility] Diagnoses Sore throat Procedures OXIMETRY AT REST NONINVASIVE EAR/PULSE OXIMETRY SINGLE Jerri Cartagena APRN.PHARMACY SALESPERSON [address] [place] [address] [facility] [place] [address] [place], [place] [id number] Referral ID Status Reason Start Date Expiration Date Visits Requested Visits Authorized [id number] Authorized Auto-Generat ed Referral 05/19/2023 06/17/2024 1 1 [facility] for referral (narrative)* Diagnostic Procedure Only (Routine) - Authorized Specialty Diagnoses / Procedures Referred By Contac t Referred To Contact [facility] Diagnoses Pelvic pain in female Procedures PELVIC US [facility] US PELVIC NONOBSTETRIC REAL-TIME IMAGE COMPLETE Bharathi Estrada MD [address] [place] [address] [address] Referral ID Status Reason Start Date Expiration Date Visits Requested Visits Authorized [id number] Authorized Auto-Generat ed Referral 01/24/2024 01/23/2025 1 1 [facility] for referral (narrative)* Diagnostic Procedure Only (Routine) - New Request Specialty Diagnoses / Procedures Referred By Contac t Referred To Contact [facility] Diagnoses Ovarian cyst, right Procedures PELVIC US [facility] US PELVIC NONOBSTETRIC REAL-TIME IMAGE COMPLETE Bharathi Estrada MD [address] [place] [address] [address] Referral ID Status Reason Start Date Expiration Date Visits Requested Visits Authorized [id number] New Request Auto-Generat ed Referral 07/12/2024 07/12/2025 1 1 [facility] for visit Narrative* Diagnostic Procedure Only (Routine) - Closed Specialty Diagnoses / Procedures Referred By Contac t Referred To Contact [facility] Diagnoses Pelvic pain in female Procedures PELVIC US WHI US PELVIC NONOBSTETRIC REAL-TIME IMAGE COMPLETE Bharathi Estrada MD [address] 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 Advance Directive(s) 04/10/2022 7:51 PM Reason for Referral Specialty Diagnoses / Procedures Referred By Contac t Referred To Contact Diagnoses Dysfunction of both eustachian tubes Procedures ADULT HEARING TEST/AUDIOGRAM COMPRE AUDIOMETRY THRESHOLD [place] [address] [place] [address] [facility] [address] [place] [address] Referral ID Status Reason Start Date Expiration Date Visits Requested Visits Authorized [id number] Authorized Auto-Generat ed Referral 04/14/2022 07/13/2022 1 1 Specialty Diagnoses / Procedures Referred By Contac t Referred To Contact Allergy Diagnoses Allergic rhinitis, unspecified seasonality, unspecified trigger Procedures CONSULT TO ALLERGY/IMMUNOLOGY OFFICE/OUTPATIENT NEW HIGH MDM 60-74 MINUTES Carmen Ramirez MD [address] [place] [address] Referral ID Status Reason Start Date Expiration Date Visits Requested Visits Authorized [id number] Authorized PCP Requested Referral 04/14/2022 04/14/2023 1 1 Specialty Diagnoses / Procedures Referred By Contac t Referred To Contact Diagnoses Recurrent syncope Procedures CONSULT TO [facility] OFFICE/OUTPATIENT [facility] 60-74 MINUTES Hellen Paez MD [address] [place] [address] Referral ID Status Reason Start Date Expiration Date Visits Requested Visits Authorized [id number] Authorized PCP Requested Referral 2 07/17/2023 1 1 Specialty Diagnoses / Procedures Referred By Contac t Referred To Contact ADULT PSYCHIATRY Diagnoses Bipolar II disorder (HCC) Post traumatic stress disorder (PTSD) Eating disorder, unspecified type Procedures CONSULT TO INTENSIVE OUTPATIENT PROGRAM (IOP) OFFICE/OUTPATIENT [facility] 60-74 MINUTES Rajni Evans LISW [address] [id number] Psyc Adult [facility] [address] [place] [address] Referral ID Status Reason Start Date Expiration Date Visits Requested Visits Authorized [id number] Authorized PCP Requested Referral 11/03/2022 11/03/2023 1 1 Specialty Diagnoses / Procedures Referred By Contac t Referred To Contact Diagnoses confirmed by positive urine test Procedures CONSULT TO WOUND/OSTOMY CLINICAL NURSE SPECIALIST OFFICE/OUTPATIENT [facility] 60-74 MINUTES Maegan Morrissey PA-C [address] [id number] Referral ID Status Reason Start Date Expiration Date Visits Requested Visits Authorized [id number] Authorized PCP Requested Referral Auto-Generate d Referral [...] or prosecute any alcohol or drug abuse patient.[facility] the event this information is protected by the Federal Confidentiality of Alcohol and Drug Abuse Patient Records regulations: The Federal rules restrict any use of the information to criminally investigate or prosecute any alcohol or drug abuse patient.[facility]In the event this information is protected by the Federal Confidentiality of Alcohol and Drug Abuse Patient Records regulations: The Federal rules restrict any use of the information to criminally investigate or prosecute any alcohol or drug abuse patient.[facility] ColumbusIn the event this information is protected by the Federal Confidentiality of Alcohol and Drug Abuse Patient Records regulations: The Federal rules restrict any use of the information to criminally investigate or prosecute any alcohol or drug abuse patient.[facility] ColumbusIn the event this information is protected by the Federal Confidentiality of Alcohol and Drug Abuse Patient Records regulations: The Federal rules restrict any use of the information to criminally investigate or prosecute any alcohol or drug abuse patient.[facility] ColumbusIn the event this information is protected by the Federal Confidentiality of Alcohol and Drug Abuse Patient Records regulations: The Federal rules restrict any use of the information to criminally investigate or prosecute any alcohol or drug abuse patient.[facility] ColumbusIn the event this information is protected by the Federal Confidentiality of Alcohol and Drug Abuse Patient Records regulations: The Federal rules restrict any use of the information to criminally investigate or prosecute any alcohol or drug abuse patient.[facility] ColumbusIn the event this information is protected by the Federal Confidentiality of Alcohol and Drug Abuse Patient Records regulations: The Federal rules restrict any use of the information to criminally investigate or prosecute any alcohol or drug abuse patient.[facility] ColumbusIn the event this information is protected by the Federal Confidentiality of Alcohol and Drug Abuse Patient Records regulations: The Federal rules restrict any use of the information to criminally investigate or prosecute any alcohol or drug abuse patient.[facility] ColumbusIn the event this information is protected by the Federal Confidentiality of Alcohol and Drug Abuse Patient Records regulations: The Federal rules restrict any use of the information to criminally investigate or prosecute any alcohol or drug abuse patient.[facility] ColumbusIn the event this information is protected by the Federal Confidentiality of Alcohol and Drug Abuse Patient Records regulations: The Federal rules restrict any use of the information to criminally investigate or prosecute any alcohol or drug abuse patient.[facility] ColumbusIn the event this information is protected by the Federal Confidentiality of Alcohol and Drug Abuse Patient Records regulations: The Federal rules restrict any use of the information to criminally investigate or prosecute any alcohol or drug abuse patient.[facility] ColumbusIn the event this information is protected by the Federal Confidentiality of Alcohol and Drug Abuse Patient Records regulations: The Federal rules restrict any use of the information to criminally investigate or prosecute any alcohol or drug abuse patient.[facility] ColumbusIn the event this information is protected by the Federal Confidentiality of Alcohol and Drug Abuse Patient Records regulations: The Federal rules restrict any use of the information to criminally investigate or prosecute any alcohol or drug abuse patient.[facility] ColumbusIn the event this information is protected by the Federal Confidentiality of Alcohol and Drug Abuse Patient Records regulations: The Federal rules restrict any use of the information to criminally investigate or prosecute any alcohol or drug abuse patient.[facility] the event this information is protected by the Federal Confidentiality of Alcohol and Drug Abuse Patient Records regulations: The Federal rules restrict any use of the information to criminally investigate or prosecute any alcohol or drug abuse patient.[facility] ColumbusIn the event this information is protected by the Federal Confidentiality of Alcohol and Drug Abuse Patient Records regulations: The Federal rules restrict any use of the information to criminally investigate or prosecute any alcohol or drug abuse patient.[facility] ColumbusIn the event this information is protected by the Federal Confidentiality of Alcohol and Drug Abuse Patient Records regulations: The Federal rules restrict any use of the information to criminally investigate or prosecute any alcohol or drug abuse patient.[facility] ColumbusIn the event this information is protected by the Federal Confidentiality of Alcohol and Drug Abuse Patient Records regulations: The Federal rules restrict any use of the information to criminally investigate or prosecute any alcohol or drug abuse patient.[facility] ColumbusIn the event this information is protected by the Federal Confidentiality of Alcohol and Drug Abuse Patient Records regulations: The Federal rules restrict any use of the information to criminally investigate or prosecute any alcohol or drug abuse patient.[facility] ColumbusIn the event this information is protected by the Federal Confidentiality of Alcohol and Drug Abuse Patient Records regulations: The Federal rules restrict any use of the information to criminally investigate or prosecute any alcohol or drug abuse patient.[facility] ColumbusIn the event this information is protected by the Federal Confidentiality of Alcohol and Drug Abuse Patient Records regulations: The Federal rules restrict any use of the information to criminally investigate or prosecute any alcohol or drug abuse patient.[facility] ColumbusIn the event this information is protected by the Federal Confidentiality of Alcohol and Drug Abuse Patient Records regulations: The Federal rules restrict any use of the information to criminally investigate or prosecute any alcohol or drug abuse patient.[facility] ColumbusIn the event this information is protected by the Federal Confidentiality of Alcohol and Drug Abuse Patient Records regulations: The Federal rules restrict any use of the information to criminally investigate or prosecute any alcohol or drug abuse patient.[facility] ColumbusIn the event this information is protected by the Federal Confidentiality of Alcohol and Drug Abuse Patient Records regulations: The Federal rules restrict any use of the information to criminally investigate or prosecute any alcohol or drug abuse patient.[facility] ColumbusIn the event this information is protected by the Federal Confidentiality of Alcohol and Drug Abuse Patient Records regulations: The Federal rules restrict any use of the information to criminally investigate or prosecute any alcohol or drug abuse patient.[facility] ColumbusIn the event this information is protected by the Federal Confidentiality of Alcohol and Drug Abuse Patient Records regulations: The Federal rules restrict any use of the information to criminally investigate or prosecute any alcohol or drug abuse patient.[facility] ColumbusIn the event this information is protected by the Federal Confidentiality of Alcohol and Drug Abuse Patient Records regulations: The Federal rules restrict any use of the information to criminally investigate or prosecute any alcohol or drug abuse patient.[facility] ColumbusIn the event this information is protected by the Federal Confidentiality of Alcohol and Drug Abuse Patient Records regulations: The Federal rules restrict any use of the information to criminally investigate or prosecute any alcohol or drug abuse patient.[facility] ColumbusIn the event this information is protected by the Federal Confidentiality of Alcohol and Drug Abuse Patient Records regulations: The Federal rules restrict any use of the information to criminally investigate or prosecute any alcohol or drug abuse patient.[facility] ColumbusIn the event this information is protected by the Federal Confidentiality of Alcohol and Drug Abuse Patient Records regulations: The Federal rules restrict any use of the information to criminally investigate or prosecute any alcohol or drug abuse patient.[facility] ColumbusIn the event this information is protected by the Federal Confidentiality of Alcohol and Drug Abuse Patient Records regulations: The Federal rules restrict any use of the information to criminally investigate or prosecute any alcohol or drug abuse patient.[facility] ColumbusIn the event this information is protected by the Federal Confidentiality of Alcohol and Drug Abuse Patient Records regulations: The Federal rules restrict any use of the information to criminally investigate or prosecute any alcohol or drug abuse patient.[facility] ColumbusIn the event this information is protected by the Federal Confidentiality of Alcohol and Drug Abuse Patient Records regulations: The Federal rules restrict any use of the information to criminally investigate or prosecute any alcohol or drug abuse patient.[facility] ColumbusIn the event this information is protected by the Federal Confidentiality of Alcohol and Drug Abuse Patient Records regulations: The Federal rules restrict any use of the information to criminally investigate or prosecute any alcohol or drug abuse patient.[facility] ColumbusIn the event this information is protected by the Federal Confidentiality of Alcohol and Drug Abuse Patient Records regulations: The Federal rules restrict any use of the information to criminally investigate or prosecute any alcohol or drug abuse patient.[facility] ColumbusIn the event this information is protected by the Federal Confidentiality of Alcohol and Drug Abuse Patient Records regulations: The Federal rules restrict any use of the information to criminally investigate or prosecute any alcohol or drug abuse patient.[facility] ColumbusIn the event this information is protected by the Federal Confidentiality of Alcohol and Drug Abuse Patient Records regulations: The Federal rules restrict any use of the information to criminally investigate or prosecute any alcohol or drug abuse patient.[facility] ColumbusIn the event this information is protected by the Federal Confidentiality of Alcohol and Drug Abuse Patient Records regulations: The Federal rules restrict any use of the information to criminally investigate or prosecute any alcohol or drug abuse patient.[facility] ColumbusIn the event this information is protected by the Federal Confidentiality of Alcohol and Drug Abuse Patient Records regulations: The Federal rules restrict any use of the information to criminally investigate or prosecute any alcohol or drug abuse patient.[facility] ColumbusIn the event this information is protected by the Federal Confidentiality of Alcohol and Drug Abuse Patient Records regulations: The Federal rules restrict any use of the information to criminally investigate or prosecute any alcohol or drug abuse patient.[facility] ColumbusIn the event this information is protected by the Federal Confidentiality of Alcohol and Drug Abuse Patient Records regulations: The Federal rules restrict any use of the information to criminally investigate or prosecute any alcohol or drug abuse patient.[facility] ColumbusIn the event this information is protected by the Federal Confidentiality of Alcohol and Drug Abuse Patient Records regulations: The Federal rules restrict any use of the information to criminally investigate or prosecute any alcohol or drug abuse patient.[facility] ColumbusIn the event this information is protected by the Federal Confidentiality of Alcohol and Drug Abuse Patient Records regulations: The Federal rules restrict any use of the information to criminally investigate or prosecute any alcohol or drug abuse patient.[facility] ColumbusIn the event this information is protected by the Federal Confidentiality of Alcohol and Drug Abuse Patient Records regulations: The Federal rules restrict any use of the information to criminally investigate or prosecute any alcohol or drug abuse patient.[facility] ColumbusIn the event this information is protected by the Federal Confidentiality of Alcohol and Drug Abuse Patient Records regulations: The Federal rules restrict any use of the information to criminally investigate or prosecute any alcohol or drug abuse patient.[facility] ColumbusIn the event this information is protected by the Federal Confidentiality of Alcohol and Drug Abuse Patient Records regulations: The Federal rules restrict any use of the information to criminally investigate or prosecute any alcohol or drug abuse patient.[facility] ColumbusIn the event this information is protected by the Federal Confidentiality of Alcohol and Drug Abuse Patient Records regulations: The Federal rules restrict any use of the information to criminally investigate or prosecute any alcohol or drug abuse patient.[facility] ColumbusIn the event this information is protected by the Federal Confidentiality of Alcohol and Drug Abuse Patient Records regulations: The Federal rules restrict any use of the information to criminally investigate or prosecute any alcohol or drug abuse patient.[facility] ColumbusIn the event this information is protected by the Federal Confidentiality of Alcohol and Drug Abuse Patient Records regulations: The Federal rules restrict any use of the information to criminally investigate or prosecute any alcohol or drug abuse patient.[facility] Reason for Visit (unrecogniz ed section and [...] MDM 30-44 MINUTES CHIROPRAC MANIP,SPINAL,1-2 [facility] [place] CHIROPRACTOR Self Wilver Montemayor DC [address] [place] [address] Referral ID Status Reason Start Date Expiration Date Visits Requested Visits Authorized [id number] Authorized Benefit Check 07/01/2022 10/03/2022 30 30 Reason Comments Radio Gen HB6 Radio Gen A21 Specialty Diagnoses / Procedures Referred By Contac t Referred To Contact XR IMAGING Diagnoses Chronic bilateral thoracic back pain Procedures XR THORACIC GENERAL 3V AP/LAT/SWIMMERS RADEX SPINE THORACIC 3 VIEWS Wilver Montemayor DC [address] [place] [address] Xr Imaging Referral ID Status Reason Start Date Expiration Date V isits Requested Visits Authorized [id number] Closed Auto-Generate d Referral 07/01/2022 07/31/2023 1 1 Reason Comments Wellness Full back, middle up per Specialty Diagnoses / Procedures Referred By Contac t Referred To Contact Chiropractor / WELLNESS Diagnoses Back pain CONSULT BACK EHP EMP Procedures OFFICE/OUTPATIENT [facility] LOW MDM 30-44 MINUTES CHIROPRAC MANIP,SPINAL,1-2 [facility] CHIROPRACTOR Self Wilver Montemayor DC [address] [place] [address] Reason Comments Establish Care Reason Comments Vaginal Problem Urinary frequency, l ower abd pain and pressure x4 days Reason Comments Results Reason Comments Patient Update Reason Comments Testing Home test positive; pt seeking confirmation and next steps Reason Comments Care 8W Specialty Diagnoses / Procedures Referred By Contac t Referred To Contact Diagnoses confirmed by positive urine test Procedures CONSULT TO WOUND/OSTOMY CLINICAL NURSE SPECIALIST OFFICE/OUTPATIENT [facility] MDM 60-74 MINUTES Maegan Morrissey, MEET [address] [place] [address] Referral ID Status Reason Start Date Expiration Date V isits Requested Visits Authorized [id number] Closed PCP Requested Referral Auto-Generated Referral 11/30/2022 11/30/2023 1 1 Reason Comments Results NIPT Reason Comments Care Reason Comments US Specialty Diagnoses / Procedures Referred By Contac t Referred To Contact [facility] Diagnoses Encounter for screening of mother Procedures OBSTETRIC ULTRASOUND WHI US PREG UTERUS AFTER 1ST TRIMEST [place] [address] [address] [place], [place] [id number] [facility] [address] [place] [address] Referral ID Status Reason Start Date Expiration Date V isits Requested Visits Authorized [id number] Closed Auto-Generate d Referral 01/25/2023 01/25/2024 1 [...] Care Teams (unrecognized sec tion and content) Sports Journalist Relationship Specialty [place] [address] [place] [address] PCP - General Internal Medicine/Pediatrics 03/31/22 Sports Journalist Relationship Specialty Start Date End Date Angela Ray MD [address] [place] [address] PCP - General Internal Medicine/Pediatrics 03/31/22 Sports Journalist Relationship Specialty Start Date End Date Hellen Paez MD [address] [place] [address] PCP - General Internal Medicine 04/12/22 Sports Journalist Relationship Specialty Start Date End Date Hellen Paez MD [address] [place] [address] PCP - General Internal Medicine 04/12/22 Sports Journalist Relationship Specialty Start Date End Date Hellen Paez MD [address] [place] [address] PCP - General Internal Medicine 04/12/22 Sports Journalist Relationship Specialty Start Date End Date Hellen Paez MD [address] [place] [address] PCP - General Internal Medicine 04/12/22 Sports Journalist Relationship Specialty Start Date End Date Hellen Paez MD [address] [place] [address] PCP - General Internal Medicine 04/12/22 Sports Journalist Relationship Specialty Start Date End Date Hellen Paez MD [address] [place] [address] PCP - General Internal Medicine 04/12/22 Sports Journalist Relationship Specialty [place] [address] [place] [address] PCP - General Internal Medicine 04/12/22 Sports Journalist Relationship Specialty [place] [address] [place] [address] PCP - General Internal Medicine 04/12/22 Sports Journalist Relationship Specialty Start Date End Date Hellen Paez MD [address] [place] [address] PCP - General Internal Medicine 04/12/22 Sports Journalist Relationship Specialty Start Date End Date Hellen Paez MD [address] [place] [address] PCP - General Internal Medicine 04/12/22 Sports Journalist Relationship Specialty [place] [address] [place] [address] PCP - General Internal Medicine 04/12/22 Sports Journalist Relationship Specialty Start Date End Date Hellen Paez MD [address] [place] [address] PCP - General Internal Medicine 04/12/22 Sports Journalist Relationship Specialty Start Date End Date Hellen Paez MD [address] [place] [address] PCP - General Internal Medicine 04/12/22 Sports Journalist Relationship Specialty Start Date End Date Hellen Paez MD [address] [place] [address] PCP - General Internal Medicine 04/12/22 Sports Journalist Relationship Specialty Start Date End Date Hellen Paez MD [address] [place] [address] PCP - General Internal Medicine 04/12/22 Sports Journalist Relationship Specialty Start Date End Date Hellen Paez MD [address] [place] [address] PCP - General Internal Medicine 04/12/22 Sports Journalist Relationship Specialty Start Date End Date Hellen Paez MD [address] [place] [address] PCP - General Internal Medicine 04/12/22 Sports Journalist Relationship Specialty Start Date End Date Hellen Paez MD [address] [place] [address] PCP - General Internal Medicine 04/12/22 Sports Journalist Relationship Specialty Start Date End Date Hellen Paez MD [address] [place] [address] PCP - General Internal Medicine 04/12/22 Sports Journalist Relationship Specialty Start Date End Date Hellen Paez MD [address] [place], [place] [phone] PCP - General Internal Medicine 04/12/22 Sports Journalist Relationship Specialty Start Date End Date Hellen Paez MD [address] [place] [address] PCP - General Internal Medicine 04/12/22 Sports Journalist Relationship Specialty Start Date End Date Hellen Paez MD [address] [place] [address] PCP - General Internal Medicine 04/12/22 Sports Journalist Relationship Specialty Start Date End Date Hellen Paez MD [address] [place] [address] PCP - General Internal Medicine 04/12/22 Sports Journalist Relationship Specialty Start Date End Date Hellen Paez MD [address] [place] [address] PCP - General Internal Medicine 04/12/22 Sports Journalist Relationship Specialty Start Date End Date Hellen Paez MD [address] [place] [address] PCP - General Internal Medicine 04/12/22 Sports Journalist Relationship Specialty Start Date End Date Hellen Paez MD [address] [place] [address] PCP - General Internal Medicine 04/12/22 Sports Journalist Relationship Specialty Start Date End Date Hellen Paez MD [address] [place] [address] PCP - General Internal Medicine 04/12/22 Sports Journalist Relationship Specialty Start Date End Date Hellen Paez MD [address] [place] [address] PCP - General Internal Medicine 04/12/22 Sports Journalist Relationship Specialty Start Date End Date Hellen Paez MD [address] [place] [address] PCP - General Internal Medicine 04/12/22 Sports Journalist Relationship Specialty Start Date End Date Hellen Paez MD [address] [place], [place] [id number] PCP - General Internal Medicine 04/12/22 Sports Journalist Relationship Specialty Start Date End Date Hellen Paez MD [address] [place], [place] [id number] PCP - General Internal Medicine 04/12/22 Sports Journalist Relationship Specialty Start Date End Date Hellen Paez MD [address] [place] [address] PCP - General Internal Medicine 04/12/22 Sports Journalist Relationship Specialty Start Date End Date Hellen Paez MD [address] [place] [id number] PCP - General Internal Medicine 04/12/22 Sports Journalist Relationship Specialty Start Date End Date Hellen Paez MD [address] [place] [id number] PCP - General Internal Medicine 04/12/22 Sports Journalist Relationship Specialty Start Date End Date Hellen Paez MD [address] [place], [place] [id number] PCP - General Internal Medicine 04/12/22 INFORMATION SOURCE (unrecogn ized section and content) DATE CREATED AUTHOR 11/11/2022 [facility] DATE CREATED AUTHOR AUTHOR'S ORGANIZ ATION 07/25/2023 [facility] DATE CREATED AUTHOR AUTHOR'S ORGANIZ ATION 08/23/2023 [facility] DATE CREATED AUTHOR AUTHOR'S ORGANIZ ATION 12/15/2024 [facility] DATE CREATED AUTHOR AUTHOR'S ORGANIZ ATION 03/01/2025 [facility] DATE CREATED AUTHOR AUTHOR'S ORGANIZ ATION 07/20/2025 [facility] FOR RECORDS PERTAINING TO PATIENTS WHO ARE [...] BE BASED ON THE PRIMARY CLINICAL RECORDS. [facility]. provides no warranty or guarantee of the accuracy or completeness of information in this document.
--- OUTSIDE RECORDS SUMMARY | 2025-07-20 12:26 | XMS RPT_ITS | CCD ---
Author Organization [facility] Care Team Providers Care Network Infrastructure Architect Name Role Phone Unavailable Primary Care Provider Unavailalfredo Ray MD, [facility] Primary Care Provider Nallely ÁLVAREZ, Hellen Primary Care Provider Nallely ÁLVAREZ, Hellen Primary Care Provider Nallely ÁLVAREZ, Hellen Primary Care Provider Nallely ÁLVAREZ, Hellen Primary Care Provider Brie EVANS Referring Unavailable LINGANNA, HELLEN Primary Care Unavailable REMI POWELL Referring Unavailable LINGANNA, HELLEN Primary Care Unavailable LINGANNA, HELLEN Primary Care Unavailable RHODA FOSTER Attending Unavailable YODIT FUCHS Admitting Unavailable RHODA FOSTER Attending Unavailable RHODA FOSTRE Admitting Unavailable LINGANNA, HELLEN Primary Care Unavailable [...] Care Physician, No Primary Referring Unava ilable Jesus Chong Attending Unavailable Jesus Chong Attending [...] Unavailable Oleghe, Efewongbe Primary Care Unavailable Rosie Stinosn Attending Unavailable Rosie Stinson Attending Unavailable Oleghe, [...] Facility (1 source) Sertraline Drug Allergy 07-16-2025 [facility] Repository Medications Current Medications Medication Drug Class(es) Dates Sig (Normalized) Sig (Original) azelastine hydrochloride 0.137 mg/actuat metered dose nasal spray (2 sources) Histamine-1 Receptor Antagonist Start: 04-14-2022 End: 05-21-2022 take 1 spray(s) nasal route twice daily azelastine (ASTELIN, ASTEPRO) 0.1% nasal spray Use 1 [place] in each nostril twice daily. 30 mL 2 04/14/2022 05/21/2022 Active Comment on above: Use 1 [place] in each nostril twice daily. cephalexin 500 [...] on above: Take 1 Lozenge by mo [facility] every 3 hours as needed. [...] anxiety/panic attacks Take 1 capsule by mo [facility] once daily as needed. ibuprofen [...] mo ut three times daily as needed. [id number]-MB-k8-esl-e pa-fish 27 mg iron-800 mcg-260 mg (11 sources) Start: 12-01-19 take 1 capsule by mouth once daily NHV432-bejl-CS-y2-bnv- epa-fish 27 mg iron-800 mcg-260 mg Take [...] sodium chloride 0.65 % drop Use 1 [place] in the nose. 0 05/21/2020 07/17/2022 Discontinued (Course of therapy completed) Comment on above: Use 1 [place] in the n ose. ulipristal acetate 30 mg oral tablet (3 sources) Progesterone Agonist/Antagonist Start: 2 End: 2 take 1 tablet by mouth once ulipristal acetate (YAMLIETH) 30 mg tablet Indications: Emergency contraception Take [...] TESS aptimaon CHLAMY,NUC ACID Negative Normal Negative [facility] Comment on above: Performed By: #### M 100.2200, L7000.1800 ####[facility] [address] [place], [place], [address] GC BY NUC ACID Negative Normal Negative [facility] Comment on above: Result Comment: Perf ormed at: =G - [facility] [address] [id number] Extractor Loader And Unloader: Sylvie Dykes MD, Phone: [phone] Performed By: #### M 100.2200, L7000.1800 ####[facility] [address] [place], [place], [address] Urine Cultureon 07-18-2025 URC Below infection leve l. Mixed Gram Positive Organisms [place] Count 1000-10,000 MIXC Mixed contaminants. Submit a new specimen if indicated. Normal [facility] Comment on above: Performed By: #### M 100.2200, L7000.1800 ####[facility] [address] [place], [place], [address] Lap Machine Tender Office Visit Reporton 07-16-2025 Lap Machine Tender Office Visit Report [facility] [address], [address] [place] [address] OFFICE VISIT Date of Service: 07/16/25 MR#: [id number] Acct: [id number] Name: DAINA QUEZADASA LESTER Rep #: [id number] : 2000 Provider: CHONG Oneill ams Age/Sex: 24/F Location: [facility] [place] Status: Signed Intake Vital Signs 06/18/25 08:34 06/26/25 14:17 07/16/25 12:55 Height 5 ft 4 in 5 ft 4 in 5 ft 5 in Weight: 174 lb 2 oz BMI 29.0 BP 143/80 H Intake Visit Reasons: NOB LMP 04/26 Chief Complaint: New OB Physical Testing Supervisor Required: No Is patient in pain?: [...] 1 current occupational status: employed current occupation: [employer] current occupational exposures/hazards: No pets and animals: [...] participate in: none frequency: does not exercise kavon/hinduism: Voodoo seatbelt use: always do you feel safe [...] full term 6lb 1oz Male 24hr epidural Vincent Yodit Fuchs Damion Delivery Date: 07/28/23 Last [...] up unless (more content not included)... Normal [facility] Office Visit Reporton 2024 Office Visit Report [facility] [address] [place] [address] OFFICE VISIT Date of Service: 07/03/25 MR#: [id number] Acct: [id number] Patient: NATA QUEZADA Rep #: [id number] : 2000 Provider: Dr. Maegan Leon DO Age/Sex: 24/F Location: [facility] [place] Status: Signed [...] air Intake Visit Reasons: PNOB Vitals Education Physical Testing Supervisor Required: No Is patient in pain?: [...] trimester 07/12/25 211 Date [facility] Signature: Date (if applicable) CC: Normal [facility] hCG Titer Quant., Serumon HCG QUANT. 03506 mIU/mL High <9 non-preg [facility] Comment on above: Result Comment: Gest ational Age 0.2-1 Week: 5-50 mIU/mL 1-2 Weeks: 50-500 mIU/mL 2-3 Weeks: 100-5000 mIU/mL 3-4 Weeks: 500-10,000 mIU/mL 4-5 Weeks:1000-50,000 mIU/mL 5-6 Weeks: 10,000-100,000 mIU/mL 6-8 Weeks: 15,000-200,000 mIU/mL 2-3 Months:10,000-100,000 mIU/mL Performed By: #### L 700.8000 ####[facility] [address] [place], [place], [address] hCG Titer Quant., Serumon HCG QUANT. 84159 mIU/mL High <9 non-preg [facility] Comment on above: Result Comment: Gest ational Age 0.2-1 Week: 5-50 mIU/mL 1-2 Weeks: 50-500 mIU/mL 2-3 Weeks: 100-5000 mIU/mL 3-4 Weeks: 500-10,000 mIU/mL 4-5 Weeks:1000-50,000 mIU/mL 5-6 Weeks: 10,000-100,000 mIU/mL 6-8 Weeks: 15,000-200,000 mIU/mL 2-3 Months:10,000-100,000 mIU/mL Performed By: #### L 700.8000 ####[facility] [address] [place], [place], [address] Init OB < 14Wks USon 025 Init OB < 14Wks [facility] Services [address] [place], [place] [address] Init OB < 14Wks US MR#: [id number] Acct: [id number] Name: NATA QUEZADA Rep #: [id number] : 2000 F 24 From: Silverio Blood MD PCP: Dr. Matilde Castillo MD Status: REG CLI Study: Init OB < 14Wks US Date of Exam: 06/26/25 Exam# [id number] Ordering Dr: Rosie Stinson CNM PROCEDURE: INIT [...] follow-up with ultrasound is recommended. Reading Location: [facility] CC: CHONG Stinson; Dr. Matilde Castillo MD Straightener Hand: Signed Normal [facility] Surgery Visit Reporton 06-26 Surgery Visit Report [facility] [address] [place] [address]. [address] [place] [address] OFFICE VISIT Date of Service: 06/26/25 MR#: [id number] Acct: [id number] Name: NATA QUEZADA Rep #: [id number] : 2000 Provider: Dr. Jesus shaw MD Age/Sex: 24/F Location: [facility] Status: Signed Intake Vital Signs 06/18/25 08:34 [...] 1 current occupational status: employed current occupation: [employer] current occupational exposures/hazards: No pets and animals: [...] as docum (more content not included)... Normal [facility] hCG Titer Quant., Serumon HCG QUANT. 1203 mIU/mL High <9 non-preg [facility] Comment on above: Result Comment: Gest ational Age 0.2-1 Week: 5-50 mIU/mL 1-2 Weeks: 50-500 mIU/mL 2-3 Weeks: 100-5000 mIU/mL 3-4 Weeks: 500-10,000 mIU/mL 4-5 Weeks:1000-50,000 mIU/mL 5-6 Weeks: 10,000-100,000 mIU/mL 6-8 Weeks: 15,000-200,000 mIU/mL 2-3 Months:10,000-100,000 mIU/mL Performed By: #### L 700.8000 #### [facility] [address] [place], [place], [address] Breast Limited Unilateralon 06-19-2025 Breast Limited Unilateral [facility] Imaging Services [address] [place] [address] Breast Limited Unilateral MR#: [id number] Acct: [id number] Name: NATA QUEZADA Rep #: [id number] : 2000 F 24 From: Julian duarte MD PCP: Dr. Matilde Castillo MD Status: REG CLI Study: Breast Limited Unilateral Date of Exam: Exam# [id number] Ordering Dr: Sharmin Hernandez PROCEDURE: BREAST LIMITED [...] 4: SUSPICIOUS RECOMMENDATION: Biopsy Recommended Reading Location: [facility] CC: GALILEO Hernandez; Dr. Matilde Castillo MD Straightener Hand: Signed Normal [facility] hCG Titer Quant., Serumon HCG QUANT. 556 mIU/mL High <9 non-preg [facility] Comment on above: Result Comment: Gest ational Age 0.2-1 Week: 5-50 mIU/mL 1-2 Weeks: 50-500 mIU/mL 2-3 Weeks: 100-5000 mIU/mL 3-4 Weeks: 500-10,000 mIU/mL 4-5 Weeks:1000-50,000 mIU/mL 5-6 Weeks: 10,000-100,000 mIU/mL 6-8 Weeks: 15,000-200,000 mIU/mL 2-3 Months:10,000-100,000 mIU/mL Performed By: #### L 700.8000 #### [facility] [address] [place], [address] Orthopedic Visit Reporton Orthopedic Visit Report [facility] [address] [place] [address] 5 [place] [address] OFFICE VISIT Date of Service: 06/18/25 MR#: [id number] Acct: [id number] Name: NATA QUEZADA Rep #: [id number] : 2000 Provider: Dr. Ricardo bustos DO Age/Sex: 24/F [place] [facility] [place] Status: Signed Intake Vital Signs 06/11/25 13:40 [...] 1 current occupational status: employed current occupation: [employer] current occupational exposures/hazards: No pets and animals: [...] [facility] . She saw saw Tonya Sethi at [facility] who thought maybe her pain [...] styloid an (more content not included)... Normal [facility] Wrist min 3 Viewson 06-18-20 Wrist min 3 Views [facility] Imaging Services [address] [place] [address] Wrist min 3 Views MR#: [id number] Acct: [id number] Name: NATA QUEZADA Rep #: [id number] : 2000 F 24 From: Ramirez Holloway MD PCP: Dr. Matilde Castillo MD Status: DEP AMB Study: Wrist min 3 Views Date of Exam: 06/18/25 Exam# [id number] Ordering Dr: Ricardo Ordoñez DO PROCEDURE: WRIST MIN 3 VIEWS 06/18/2025 REASON FOR EXAM: ON GOING PAIN TECHNIQUE: Procedure Code: RADWR Modality: DX Procedure: WRIST MIN 3 VIEWS Laterality: FINDINGS: No evidence of acute fracture or dislocation. Normal carpal alignment. The soft tissues are unremarkable. RAD/Wrist min 3 Views IMPRESSION: No acute osseous abnormalities. Reading Location: [id number] CC: Dr. Matilde Castillo MD; Dr. Ricardo Ordoñez DO Straightener Hand: Signed Normal [facility] MR/BMS.BPon 06-13-2025 MR/BMS.BP [facility] [address], [address] [place] [address] OFFICE VISIT Date of Service: 06/13/25 MR#: [id number] Acct: [id number] Name: NATA QUEZADA Rep #: [id number] : 2000 Provider: Dr. Jesus Valenzuela se, DO Age/Sex: 24/F [place] [facility] [place] Status: Signed Intake Vital Signs 04/23/25 11:01 [...] 1 current occupational status: employed current occupation: [employer] current occupational exposures/hazards: No pets and animals: [...] hallucinations Suicid (more content not included)... Normal [facility] Lap Machine Tender Office Visit Reporton 06-11-2025 Lap Machine Tender Office Visit Report [facility] [address], [address] [place] [address] OFFICE VISIT Date of Service: 06/11/25 MR#: [id number] Acct: [id number] Name: NATA QUEZADA Rep #: [id number] : 2000 Provider: GALILEO Jordan Age/Sex: 24/F Location: [facility] [facility] Status: Signed Intake Vital Signs 05/21/25 14:24 06/11/25 13:40 Height 5 ft 4 in 5 ft 4 in Weight: 165 lb 165 lb BMI 28.3 28.3 BP 119/77 118/64 Blood Pressure Location Lt brachial Position Sitting Respiration 16 Pulse 73 Pulse Source Monitor Intake Visit Reasons: Breast lump Chief Complaint: Breast lump Physical Testing Supervisor Required: No Is patient in pain?: [...] 1 current occupational status: employed current occupation: [employer] current occupational exposures/hazards: No pets and animals: [...] breast 06/11 (more content not included)... Normal [facility] Brain W/WO Contraston 2024 Brain W/WO Contrast [facility] Imaging Services [address] [place] [address] Brain W/WO Contrast MR#: [id number] Acct: [id number] Name: NATA QUEZADA Rep #: [id number] : 2000 F 24 From: Eriberto Kellogg MD PCP: Dr. Matilde Castillo MD Status: REG CLI Study: Brain W/WO Contrast Date of Exam: 06/08/25 Exam# [id number] Ordering Dr: Ramirez Roberts PROCEDURE: BRAIN W/WO [...] IMPRESSION: Study within normal limits Reading [facility] CC: Dr. Matilde Castillo MD; SHRADDHA Noriega Straightener Hand: Signed Normal [facility] MR/BMS.BPon 05-21-2025 MR/BMS.BP [facility] [address], [address] [place] [address] OFFICE VISIT Date of Service: 05/21/25 MR#: [id number] Acct: [id number] Name: NATA QUEZADA Rep #: [id number] : 2000 Provider: Dr. Jesus Valenzuela se, Age/Sex: 24/F [place] [facility] [place] Status: Signed Intake Vital Signs 05/11/25 10:25 [...] 1 current occupational status: employed current occupation: [employer] current occupational exposures/hazards: No pets and animals: [...] x3 Gamal (more content not included)... Normal [facility] Genital Culture Comprehensiv taqueria 05-20-2025 VAC Reason for Exam: Vaginal Discharge Normal vaginal kathy isolated. No yeast, Gardnerella, Neisseria or beta-hemolytic Streptococcus isolated. Normal [facility] Comment on above: Performed By: #### L 700.8000 #### [facility] [address] [place], [place], [address] Gram Stainon 05-18-2025 Reason for Exam: Vaginal Discharge Gram Stain 1+ Epithelial cells 4+ Gram positive rods No Gram negative diplococci Score = 0 Interpretation: 0-3 Normal, 4-6 Intermediate, 7-10 Positive BV Normal [facility] Comment on above: Performed By: #### L 700.8000 #### [facility] [address] [place], [place], [address] Internal Medicine Office Vis iton 05-11-2025 Internal Medicine Office Visit [facility] [address] [place] [address] [place] [address] OFFICE VISIT Date of Service: 05/11/25 MR#: [id number] Acct: [id number] Name: NATA QUEZADA Rep #: [id number] : 2000 Provider: SHRADDHA Noriega Age/Sex: 24/F [place] [facility] [place] Status: Signed Intake Vital Signs 05/08/25 10:47 08/08/25 10:25 Height 5 ft 4 in 5 ft 4 in Weight: 162 lb BMI 27.8 BP 104/60 Blood Pressure Location Lt brachial Position Sitting Respiration 16 Pulse 99 Pulse Source Monitor Temp 96.3 F L Temp Source Temporal Pulse Oximetry (%) 98 Oxygen Delivery Method room air Intake Visit Reasons: Nausea/dizzy/reaction to zoloft Physical Testing Supervisor Required: No Accompanied by: Self Is patient [...] vomitted 4 times in last 24 hours. [facility] Medical History Generalized anxiety disorder MDD (major [...] 1 current occupational status: employed current occupation: [employer] current occupational exposures/hazards: No pets and animals: [...] She describ (more content not included)... Normal [facility] Bedside Glucoseon 05-10-2025 FINGERSTICK GLU 88 mg/dL Normal 74-106 [facility] Comment on above: Result Comment: FLEX SANTOS OF PATIENT CARE PER NURSING PROTOCOL Performed By: #### L 501.080 #### [facility] [address] [place], [address] CBC W/Diff, Automatedon 08-0 7-2024 Absolute Lymph 0.22 X10 3/uL Low 0.83-4.51 [facility] Comment on above: Performed By: #### L 500.4050, L100.0100 #### [facility] [address], [address] Absolute Neut 9.2 X10 3/uL High 2.0-7.7 [facility] Comment on above: Performed By: #### L 500.4050, L100.0100 #### [facility] [address], [address] Basophils/100 WBC (Bld) 0.2 % Normal 0-1 [facility] Comment on above: Performed By: #### L 500.4050, L100.0100 #### [facility] [address] [place], [address] Eosinophils/100 WBC (Bld) 0.3 % Normal 0-5 [facility] Comment on above: Performed By: #### L 500.4050, L100.0100 #### [facility] [address], [address] Erythrocyte distribution width (RBC) [Ratio] 12.2 % Normal 11.6-14.6 [facility] Comment on above: Performed By: #### L 500.4050, L100.0100 #### [facility] [address] [place], [address] Hematocrit (Bld) [Volume fraction] 43.9 % Normal 37-47 [facility] Comment on above: Performed By: #### L 500.4050, L100.0100 #### [facility] [address] [place], [address] Hemoglobin (Bld) [Mass/Vol] 14.6 g/dL Normal 12.0-15.0 [facility] Comment on above: Performed By: #### L 500.4050, L100.0100 #### [facility] [address] [place], [address] IG% 0.200 Normal 0.0-0.9 [facility] Comment on above: Result Comment: IG% - Immature Granulocytes (promyelocytes, myelocytes and metamyelocytes) > 1% indicates that a LEFT SHIFT is Present. Performed By: #### L 500.4050, L100.0100 #### [facility] [address] [place], [address] Lymphocytes/100 WBC (Bld) 2.2 % Low 19-41 [facility] Comment on above: Performed By: #### L 500.4050, L100.0100 #### [facility] [address], [address] MCH (RBC) [Entitic mass] 28.5 pg Normal 27.0-32.0 [facility] Comment on above: Performed By: #### L 500.4050, L100.0100 #### [facility] [address] [place], [address] MCHC (RBC) [Mass/Vol] 33.3 g/dL Normal 32-36 [facility] Comment on above: Performed By: #### L 500.4050, L100.0100 #### [facility] [address] [place], [address] MCV (RBC) [Entitic vol] 85.6 fL Normal 81-99 [facility] Comment on above: Performed By: #### L 500.4050, L100.0100 #### [facility] [address] [place], [address] Monocytes/100 WBC (Bld) 3.9 % Normal 0-10 [facility] Comment on above: Performed By: #### L 500.4050, L100.0100 #### [facility] [address] [place], [address] Neutrophils/100 WBC (Bld) 93.2 % High 47-70 [facility] Comment on above: Performed By: #### L 500.4050, L100.0100 #### [facility] [address] [place], [address] Nucleated RBC (Bld) [#/Vol] 0 10*3/uL Normal 0-5 [facility] Comment on above: Performed By: #### L 500.4050, L100.0100 #### [facility] [address] [place], [address] Platelet mean volume (Bld) [Entitic vol] 10.8 fL Normal 6.2-12.0 [facility] Comment on above: Performed By: #### L 500.4050, L100.0100 #### [facility] [address] [place], [address] Platelets (Bld) [#/Vol] 185 10*3/uL Normal 150-450 [facility] Comment on above: Performed By: #### L 500.4050, L100.0100 #### [facility] [address] [place], [address] RBC (Bld) [#/Vol] 5.13 10*6/uL Normal 4.2-5.4 [facility] Comment on above: Performed By: #### L 500.4050, L100.0100 #### [facility] [address] [place], [address] RDW SD 38.1 fl Normal 35.1-43.9 [facility] Comment on above: Performed By: #### L 500.4050, L100.0100 #### [facility] [address] [place], [address] WBC (Bld) [#/Vol] 9.9 10*3/uL Normal 4.4-11.0 [facility] Comment on above: Performed By: #### L 500.4050, L100.0100 #### [facility] [address] [place], [address] Comprehensive Metabolic Prof [facility] 05-10-2025 Albumin [Mass/Vol] 4.3 g/dL Normal 3.5-5.0 [facility] Comment on above: Performed By: #### L 500.4050, L100.0100 #### [facility] [address] [place], [address] Albumin/Globulin [Mass ratio] 1.7 {ratio} Normal 0.9-2.4 [facility] Comment on above: Performed By: #### L 500.4050, L100.0100 #### [facility] [address] [place], [address] ALK PHOS 95 U/L Normal 35-104 [facility] Comment on above: Performed By: #### L 500.4050, L100.0100 #### [facility] [address] [place], [address] ALT [Catalytic activity/Vol] 11 U/L Normal <=34 [facility] Comment on above: Performed By: #### L 500.4050, L100.0100 #### [facility] [address] [place], [address] AST [Catalytic activity/Vol] 17 U/L Normal <=31 [facility] Comment on above: Performed By: #### L 500.4050, L100.0100 #### [facility] [address] [place], [address] Bilirubin [Mass/Vol] 0.38 mg/dL Normal 0.00-1.30 [facility] Comment on above: Performed By: #### L 500.4050, L100.0100 #### [facility] [address] [place], [address] BUN/CRE 27.2 RATIO High 10-20 [facility] Comment on above: Performed By: #### L 500.4050, L100.0100 #### [facility] [address] [place], [address] Calcium [Mass/Vol] 8.7 mg/dL Normal 7.6-11.0 [facility] Comment on above: Performed By: #### L 500.4050, L100.0100 #### [facility] [address] [place], [address] Chloride [Moles/Vol] 104 mmol/L Normal 98-108 [facility] Comment on above: Performed By: #### L 500.4050, L100.0100 #### [facility] [address] [place], [address] CO2 [Moles/Vol] 24.6 mmol/L Normal 21.0-32.0 [facility] Comment on above: Performed By: #### L 500.4050, L100.0100 #### [facility] [address] [place], [address] Creatinine [Mass/Vol] 0.63 mg/dL Low 0.70-1.20 [facility] Comment on above: Performed By: #### L 500.4050, L100.0100 #### [facility] [address] [place], [address] GAP 10 Normal 5-15 [facility] Comment on above: Performed By: #### L 500.4050, L100.0100 #### [facility] [address] [place], [address] GFR/1.73 sq M.predicted among non-blacks MDRD (S/P/Bld) [Vol rate/Area] 128 mL/min/{1.73_m2} Normal >60 [facility] Comment on above: Result Comment: mL/m in/1.73m2 CKD-EPI Creatinine Equation (2020) Performed By: #### L 500.4050, L100.0100 #### [facility] [address] [place], [address] Globulin (S) [Mass/Vol] 2.5 g/dL Normal 2.2-4.2 [facility] Comment on above: Performed By: #### L 500.4050, L100.0100 #### [facility] [address] [place], [address] Glucose [Mass/Vol] 99 mg/dL Normal 70-99 [facility] Comment on above: Performed By: #### L 500.4050, L100.0100 #### [facility] [address] [place], [address] Potassium [Moles/Vol] 4.1 mmol/L Normal 3.3-5.1 [facility] Comment on above: Performed By: #### L 500.4050, L100.0100 #### [facility] [address] [place], [address] Sodium [Moles/Vol] 139 mmol/L Normal 133-145 [facility] Comment on above: Performed By: #### L 500.4050, L100.0100 #### [facility] [address] [place], [address] T PROT 6.7 g/dL Normal 5.9-8.4 [facility] Comment on above: Performed By: #### L 500.4050, L100.0100 #### [facility] [address] [place], [place], [address] Urea nitrogen [Mass/Vol] 17 mg/dL Normal 4-19 [facility] Comment on above: Performed By: #### L 500.4050, L100.0100 #### [facility] [address] [place], [address] Transvaginal Non-on 05-09-2025 Transvaginal Non- [facility] Imaging Services [address] [place] [address] Transvaginal Non- MR#: [id number] Acct: [id number] Name: NATA QUEZADA Rep #: [id number] : 2000 F 24 From: Julian duarte MD PCP: Dr. Matilde Castillo MD Status: REG CLI Study: Transvaginal Non- Date of Exam: Exam# [id number] Ordering Dr: Rosie Stinson CNM PROCEDURE: TRANSVAGINAL [...] IMPRESSION: NORMAL TRANSABDOMINAL PELVIC ULTRASOUND. Reading Location: [id number] CC: CHONG Stinson; Dr. Matilde Castillo MD Straightener Hand: Signed Normal [facility] Lap Machine Tender Office Visit Reporton 05-08-2025 Lap Machine Tender Office Visit Report [facility] [address], [address] [place] [address] OFFICE VISIT Date of Service: 05/08/25 MR#: [id number] Acct: [id number] Name: NATA QUEZADA Rep #: [id number] : 2000 Provider: CHONG Oneill ams Age/Sex: 24/F Location: [facility] [place] Status: Signed Intake Vital Signs 04/23/25 11:01 05/08/25 10:46 05/08/25 10:47 Height 5 ft 4 in 5 ft 4 in 5 ft 4 in Weight: 165 lb BMI 28.3 BP 113/81 H Intake Visit Reasons: Dyspareunia Chief Complaint: Dyspareunia Physical Testing Supervisor Required: No Is patient in pain?: [...] 1 current occupational status: employed current occupation: [employer] current occupational exposures/hazards: No pets and animals: [...] Bth Weight [facility] 07/28/23 Oseas 38 live - full term 6lb 1oz Male 24hr epidural Vincent Yodit Bruno ROS Const Constitutional: Reports system [...] Speculum Exam (more content not included)... Normal [facility] Elbow min 3 Viewson 05-07-20 Elbow min 3 Views [facility] Imaging Services [address] [place] [address] Elbow min 3 Views MR#: [id number] Acct: [id number] Name: NATA QUEZADA Rep #: [id number] : 2000 F 24 From: Harish Barbour PCP: Dr. Matilde Castillo MD Status: REG CLI Study: Elbow min 3 Views Date of Exam: 05/07/25 Exam# [id number] Ordering Dr: Tonya Sethi PROCEDURE: ELBOW MIN 3 VIEWS 05/07/2025 REASON FOR EXAM: PAIN TECHNIQUE: ELBOW MIN 3 VIEWS COMPARISON: None. RAD/Elbow min 3 Views IMPRESSION: No left elbow joint effusion is seen. No significant arthritic process or joint narrowing is seen. No fracture, dislocation, or other significant osseous or joint space abnormality is seen. Reading Location: [place] [address] CC: SENIOR CENTER DIRECTORGuanakito Sethi; Dr. Matilde Castillo MD Straightener Hand: Signed Normal [facility] Office Visit Reporton 2024 Office Visit Report [facility] [address] [place] [address] OFFICE VISIT Date of Service: 02/21/25 MR#: [id number] Acct: [id number] Patient: ANTA QUEZADA Rep #: [id number] : 2000 Provider: SHRADDHA Jones Age/Sex: 24/F [place] [facility] [place] [facility] [place] Status: Signed Employer Purchased Covid Test Note: [...] Bustos Signature: Date (if applicable) CC: Normal [facility] Anticardiolipin IgG, IgMon 0 05-02-2025 ANTICARDIO IgG < 9 Normal 0-14 [facility] Comment on above: Result Comment: Nega tive: <15 Indeterminate: 15 - 20 Low-Med Positive: >20 - 80 High Positive: >80 Performed By: #### L 501.080 #### [facility] [address] [place], [address] Anticardio.IgM < 9 Normal 0-12 [facility] Comment on above: Result Comment: Nega tive: <13 Indeterminate: 13 - 20 Low-Med Positive: >20 - 80 High Positive: >80 Performed at: - [facility] [id number] Extractor Loader And Unloader: Narinder Pathak MD, Phone: [phone] Performed at: - [facility] [address] [id number] Extractor Loader And Unloader: Adán Robertson PhD, Phone: [phone] Performed By: #### L 501.080 #### [facility] [address] [place], [address] Beta-2 Glycoprot IgG, A, 05-02-2025 B2 GLYCO I IGA <9 Normal 0-25 [facility] Comment on above: Result Comment: Resu lt Units: GPI IgA units The reference interval reflects a 3SD or 99th percentile interval, which is thought to represent a potentially clinically significant result in accordance with the International Consensus Statement on the classification criteria for definitive antiphospholipid syndrome (APS). J Thromb Haem 2006;4:295-306. Performed By: #### L 501.080 #### [facility] [address] [place], [address] B2 GLYCO I IGG <9 Normal 0-20 [facility] Comment on above: Result Comment: Resu lt Units: GPI IgG units The reference interval reflects a 3SD or 99th percentile interval, which is thought to represent a potentially clinically significant result in accordance with the International Consensus Statement on the classification criteria for definitive antiphospholipid syndrome (APS). J Thromb Haem 2006;4:295-306. Performed By: #### L 501.080 #### [facility] [address] [place], [address] B2 GLYCO I IGM <9 Normal 0-32 [facility] Comment on above: Result Comment: Resu lt Units: GPI IgM units The reference interval reflects a 3SD or 99th percentile interval, which is thought to represent a potentially clinically significant result in accordance with the International Consensus Statement on the classification criteria for definitive antiphospholipid syndrome (APS). J Thromb Haem 2006;4:295-306. Performed By: #### L 501.080 #### [facility] [address] [place], [address] CBC W/Diff, Automatedon 07-3 0-2024 Absolute Lymph 1.41 X10 3/uL Normal 0.83-4.51 [facility] Comment on above: Performed By: #### L 506.1001, L100.0100, L503.6550, L503.6030 #### [facility] [address] [place], [address] Absolute Neut 5.4 X10 3/uL Normal 2.0-7.7 [facility] Comment on above: Performed By: #### L 506.1001, L100.0100, L503.6550, L503.6030 #### [facility] [address] [place], [address] Basophils/100 WBC (Bld) 0.4 % Normal 0-1 [facility] Comment on above: Performed By: #### L 506.1001, L100.0100, L503.6550, L503.6030 #### [facility] [address] [place], [address] Eosinophils/100 WBC (Bld) 0.5 % Normal 0-5 [facility] Comment on above: Performed By: #### L 506.1001, L100.0100, L503.6550, L503.6030 #### [facility] [address] [place], [address] Erythrocyte distribution width (RBC) [Ratio] 12.2 % Normal 11.6-14.6 [facility] Comment on above: Performed By: #### L 506.1001, L100.0100, L503.6550, L503.6030 #### [facility] [address] [place], [address] Hematocrit (Bld) [Volume fraction] 41.1 % Normal 37-47 [facility] Comment on above: Performed By: #### L 506.1001, L100.0100, L503.6550, L503.6030 #### [facility] [address] [place], [address] Hemoglobin (Bld) [Mass/Vol] 13.9 g/dL Normal 12.0-15.0 [facility] Comment on above: Performed By: #### L 506.1001, L100.0100, L503.6550, L503.6030 #### [facility] [address] [place], [address] IG% 0.400 Normal 0.0-0.9 [facility] Comment on above: Result Comment: IG% - Immature Granulocytes (promyelocytes, myelocytes and metamyelocytes) > 1% indicates that a LEFT SHIFT is Present. Performed By: #### L 506.1001, L100.0100, L503.6550, L503.6030 #### [facility] [address] [place], [address] Lymphocytes/100 WBC (Bld) 19.2 % Normal 19-41 [facility] Comment on above: Performed By: #### L 506.1001, L100.0100, L503.6550, L503.6030 #### [facility] [address] [place], [address] MCH (RBC) [Entitic mass] 28.5 pg Normal 27.0-32.0 [facility] Comment on above: Performed By: #### L 506.1001, L100.0100, L503.6550, L503.6030 #### [facility] [address] [place], [address] MCHC (RBC) [Mass/Vol] 33.8 g/dL Normal 32-36 [facility] Comment on above: Performed By: #### L 506.1001, L100.0100, L503.6550, L503.6030 #### [facility] [address] [place], [address] MCV (RBC) [Entitic vol] 84.2 fL Normal 81-99 [facility] Comment on above: Performed By: #### L 506.1001, L100.0100, L503.6550, L503.6030 #### [facility] [address] [place], [address] Monocytes/100 WBC (Bld) 6.4 % Normal 0-10 [facility] Comment on above: Performed By: #### L 506.1001, L100.0100, L503.6550, L503.6030 #### [facility] [address] [place], [address] Neutrophils/100 WBC (Bld) 73.1 % High 47-70 [facility] Comment on above: Performed By: #### L 506.1001, L100.0100, L503.6550, L503.6030 #### [facility] [address] [place], [address] Nucleated RBC (Bld) [#/Vol] 0 10*3/uL Normal 0-5 [facility] Comment on above: Performed By: #### L 506.1001, L100.0100, L503.6550, L503.6030 #### [facility] [address] [place], [address] Platelet mean volume (Bld) [Entitic vol] 10.8 fL Normal 6.2-12.0 [facility] Comment on above: Performed By: #### L 506.1001, L100.0100, L503.6550, L503.6030 #### [facility] [address] [place], [address] Platelets (Bld) [#/Vol] 265 10*3/uL Normal 150-450 [facility] Comment on above: Performed By: #### L 506.1001, L100.0100, L503.6550, L503.6030 #### [facility] [address] [place], [address] RBC (Bld) [#/Vol] 4.88 10*6/uL Normal 4.2-5.4 [facility] Comment on above: Performed By: #### L 506.1001, L100.0100, L503.6550, L503.6030 #### [facility] [address] [place], [address] RDW SD 37.0 fl Normal 35.1-43.9 [facility] Comment on above: Performed By: #### L 506.1001, L100.0100, L503.6550, L503.6030 #### [facility] [address] [place], [address] WBC (Bld) [#/Vol] 7.4 10*3/uL Normal 4.4-11.0 [facility] Comment on above: Performed By: #### L 506.1001, L100.0100, L503.6550, L503.6030 #### [facility] [address] [place], [address] Ferritinon 05-02-2025 Ferritin [Mass/Vol] 20 ng/mL Low 22-378 [facility] Comment on above: Performed By: #### L 506.1001, L100.0100, L503.6550, L503.6030 ####[facility] [address] [place], [address] Iron+Iron Binding Capacityon 05-02-2025 IRON SATURATION 25.0 Normal 13-59 [facility] Comment on above: Performed By: #### L 506.1001, L100.0100, L503.6550, L503.6030 ####[facility] [address] [place], [address] TIBC 338 ug/dL Normal 250-450 [facility] Comment on above: Performed By: #### L 506.1001, L100.0100, L503.6550, L503.6030 ####[facility] [address] [place], [address] UIBC 252 ug/dL Normal 228-428 [facility] Comment on above: Performed By: #### L 506.1001, L100.0100, L503.6550, L503.6030 ####[facility] [address] [place], [address] Lupus Anticoagulant Compon 0 05-02-2025 aPTT Coag (Bld) [Time] 31.1 s Normal 0.0-43.5 [facility] Comment on above: Performed By: #### L 501.080 #### [facility] [address] [place], [address] DILUTE PT (dPT) 33.8 sec Normal 0.0-47.6 [facility] Comment on above: Performed By: #### L 501.080 #### [facility] [address] [place], [address] dPT Conf. Ratio 1.03 Ratio Normal 0.00-1.34 [facility] Comment on above: Performed By: #### L 501.080 #### [facility] [address] [place], [address] DRVVT 34.0 sec Normal 0.0-47.0 [facility] Comment on above: Performed By: #### L 501.080 #### [facility] [address] [place], [address] Interpretation Comment: Normal . [facility] Comment on above: Result Comment: No l upus anticoagulant was detected. Performed By: #### L 501.080 #### [facility] [address] [place], [address] THROMBIN TIME 20.4 sec Normal 0.0-23.0 [facility] Comment on above: Performed By: #### L 501.080 #### [facility] [address] [place], [address] Vitamin D,25 Hydroxyon 05-02 Vitamin D 25-OH 43.3 ng/mL Normal 30-100 [facility] Comment on above: Result Comment: Linda min D Status Deficiency: <20 ng/mL (50nmol/L) Insufficiency: 20-30 ng/mL (50-75 nmol/L) Sufficiency: 30-100 ng/mL (75-250 nmol/L) Toxicity: >100 ng/mL (>250 nmol/L) Performed By: #### L 506.1001, L100.0100, L503.6550, L503.6030 ####[facility] [address] [place], [place], [address] Hemoglobin A1con 04-30-2025 HbA1c (Bld) [Mass fraction] 5.1 % Normal <=5.6 [facility] Comment on above: Result Comment: Norm al < 5.7 % Prediabetic 5.7 - 6.4 % Diabetic >or= 6.5 % Please note range changes. Performed By: #### L 501.080 #### [facility] [address] [place], [place], [address] Thyroid Stim Hormone (TSH)on 04-30-2025 TSH 1.560 uIU/mL Normal 0.300-4.200 [facility] Comment on above: Performed By: #### L 501.080 #### [facility] [address] [place], [place], [address] hCG Titer Quant., Serumon HCG QUANT. < 1 Normal <9 non-preg [facility] Comment on above: Result Comment: Gest ational Age 0.2-1 Week: 5-50 mIU/mL 1-2 Weeks: 50-500 mIU/mL 2-3 Weeks: 100-5000 mIU/mL 3-4 Weeks: 500-10,000 mIU/mL 4-5 Weeks:1000-50,000 mIU/mL 5-6 Weeks: 10,000-100,000 mIU/mL 6-8 Weeks: 15,000-200,000 mIU/mL 2-3 Months:10,000-100,000 mIU/mL Performed By: #### L 501.080 #### [facility] [address] [place], [place], [address] hCG Titer Quant., Serumon HCG QUANT. 11 mIU/mL High <9 non-preg [facility] Comment on above: Result Comment: Gest ational Age 0.2-1 Week: 5-50 mIU/mL 1-2 Weeks: 50-500 mIU/mL 2-3 Weeks: 100-5000 mIU/mL 3-4 Weeks: 500-10,000 mIU/mL 4-5 Weeks:1000-50,000 mIU/mL 5-6 Weeks: 10,000-100,000 mIU/mL 6-8 Weeks: 15,000-200,000 mIU/mL 2-3 Months:10,000-100,000 mIU/mL Performed By: #### L 700.8000 #### [facility] [address] [place], [place], [address] hCG Titer Quant., Serumon HCG QUANT. 15 mIU/mL High <9 non-preg [facility] Comment on above: Result Comment: Gest ational Age 0.2-1 Week: 5-50 mIU/mL 1-2 Weeks: 50-500 mIU/mL 2-3 Weeks: 100-5000 mIU/mL 3-4 Weeks: 500-10,000 mIU/mL 4-5 Weeks:1000-50,000 mIU/mL 5-6 Weeks: 10,000-100,000 mIU/mL 6-8 Weeks: 15,000-200,000 mIU/mL 2-3 Months:10,000-100,000 mIU/mL Performed By: #### L 500.4050, L100.0100 #### [facility] [place], [place], [address] MR/BMS.BPon 04-23-2025 MR/BMS.[address], [address] [place] [address] OFFICE VISIT Date of Service: 04/23/25 MR#: [id number] Acct: [id number] Name: NATA QUEZADA Rep #: [id number] : 2000 Provider: Dr. Jesus Valenzuela se, DO Age/Sex: 24/F [place] [facility] [place] [facility] [place] Status: Signed Intake Vital Signs 09/15/24 13:18 [...] 1 current occupational status: employed current occupation: [employer] current occupational exposures/hazards: No pets and animals: [...] patient evaluation. 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 Was previously [...] denies sign (more content not included)... Normal [facility] Medicine Office Vis rose 04-12-2025 Internal Medicine Office Visit [facility] [address] [place] [address] OFFICE VISIT Date of Service: 04/12/25 MR#: [id number] Acct: [id number] Name: NATA QUEZADA Rep #: [id number] : 2000 Provider: GALILEO dominguez Age/Sex: 24/F [place] [facility] [place] [facility] [place] Status: Signed Intake Vital Signs 03/27/25 13:22 [...] Intake Visit Reasons: ACUTE LEFT WRIST PAIN Physical Testing Supervisor Required: No Allergies No Known Allergies [...] hand, and denies weakness or dropping things. [facility] Medical History Brain fog Anxiety and [...] 1 current occupational status: employed current occupation: [employer] current occupational exposures/hazards: No pets [...] to forearm. Patient has not tried any qaki-zzg-kefqcnd medications pain only occurs with movement not [...] in bowel (more content not included)... Normal [facility] hCG Titer Quant., Serumon HCG QUANT. < 1 Normal <9 non-preg [facility] Comment on above: Result Comment: Gest ational Age 0.2-1 Week: 5-50 mIU/mL 1-2 Weeks: 50-500 mIU/mL 2-3 Weeks: 100-5000 mIU/mL 3-4 Weeks: 500-10,000 mIU/mL 4-5 Weeks:1000-50,000 mIU/mL 5-6 Weeks: 10,000-100,000 mIU/mL 6-8 Weeks: 15,000-200,000 mIU/mL 2-3 Months:10,000-100,000 mIU/mL Performed By: #### L 501.080 #### [facility] [address] [place], [address] Lap Machine Tender Office Visit Reporton 03-27-2025 Lap Machine Tender Office Visit Report [facility] [address], [address] [place] [address] OFFICE VISIT Date of Service: 03/26/25 MR#: [id number] Acct: [id number] Name: NATA QUEZADA Rep #: [id number] : 2000 Provider: Dr. Elizabeth argueta MD Age/Sex: 24/F Location: [facility] [place] Status: Signed Intake Vital Signs 03/21/25 12:27 Height 5 ft 4 in Intake Visit Reasons: Early bleeding Allergies No Known Allergies Allergy (Verified 02/21/25 10:46) [facility] Medical History (Updated 03/27/25 @ 13:21 [...] 1 current occupational status: employed current occupation: [employer] current occupational exposures/hazards: No pets and animals: [...] 07/28/23 Oseas 38 live - full term Vincent ROS Const Constitutional: Reports as per HPI; [...] Cosigner Signature: Date (if applicable) CC: Normal [facility] hCG Titer Quant., Serumon HCG QUANT. 8 mIU/mL Normal <9 non-preg [facility] Comment on above: Result Comment: Gest ational Age 0.2-1 Week: 5-50 mIU/mL 1-2 Weeks: 50-500 mIU/mL 2-3 Weeks: 100-5000 mIU/mL 3-4 Weeks: 500-10,000 mIU/mL 4-5 Weeks:1000-50,000 mIU/mL 5-6 Weeks: 10,000-100,000 mIU/mL 6-8 Weeks: 15,000-200,000 mIU/mL 2-3 Months:10,000-100,000 mIU/mL Performed By: #### L 501.080 #### [facility] [address] [place], [address] hCG Titer Quant., Serumon HCG QUANT. 33 mIU/mL High <9 non-preg [facility] Comment on above: Result Comment: Gest ational Age 0.2-1 Week: 5-50 mIU/mL 1-2 Weeks: 50-500 mIU/mL 2-3 Weeks: 100-5000 mIU/mL 3-4 Weeks: 500-10,000 mIU/mL 4-5 Weeks:1000-50,000 mIU/mL 5-6 Weeks: 10,000-100,000 mIU/mL 6-8 Weeks: 15,000-200,000 mIU/mL 2-3 Months:10,000-100,000 mIU/mL Performed By: #### L 500.4050, L100.0100 #### [facility] [address] [place], [address] Office Visit Reporton 2024 Office Visit Report [facility] [address] [place] [address] OFFICE VISIT Date of Service: 02/21/25 MR#: [id number] Acct: [id number] Patient: NATA QUEZADA Rep #: [id number] : 2000 Provider: SHRADDHA Jones Age/Sex: 24/F [place] [facility] [place] [facility] [place] Status: Signed Employer Purchased Covid Test Note: [...] [place] Signature: Date (if applicable) CC: Normal [facility] Urgent Care Visit Reporton 0 02-21-2025 Urgent Care Visit Report [facility] [address], [address] [place] [address] OFFICE VISIT Date of Service: 02/21/25 MR#: [id number] Acct: [id number] Name: NATA QUEZADA Rep #: [id number] : 2000 Provider: SHRADDHA Jones Age/Sex: 24/F [place] [facility] [facility] [place] Status: Signed Intake Vital Signs 02/20/25 14:49 [...] No Known Allergies Allergy (Verified 02/21/25 10:46) [facility] Medical History (Updated 02/12/25 @ 14:07 [...] 1 current occupational status: employed current occupation: [employer] current occupational exposures/hazards: No pets [...] recently dx???d w/ similar URI complaints. No yixb-xzm-vmwbjta taken to assist. No other associated symptoms [...] Attitude: coope (more content not included)... Normal [facility] Urgent Care Visit Reporton 0 02-20-2025 Urgent Care Visit Report [facility] [address], [address] [place] [address] OFFICE VISIT Date of Service: 02/20/25 MR#: [id number] Acct: [id number] Name: NATA QUEZADA Rep #: [id number] : 2000 Provider: SHRADDHA Jones Age/Sex: 24/F [place] [facility] [place] [facility] [place] Status: Signed Intake Vital Signs 02/12/25 13:41 [...] has been going on for 3 days. [facility] Medical History (Updated 02/12/25 @ 14:07 [...] 1 current occupational status: employed current occupation: [employer] current occupational exposures/hazards: No pets and animals: [...] recently dx???d w/ similar URI complaints. No ggie-dkd-axfczdt taken to assist. No other associated symptoms [...] no ru (more content not included)... Normal [facility] Internal Medicine Office Vis rose 02-12-2025 Internal Medicine Office Visit [facility] [address] [place] [address] [place] [address] OFFICE VISIT Date of Service: 02/12/25 MR#: [id number] Acct: [id number] Name: NATA QUEZADA Rep #: [id number] : 2000 Provider: Dr. Matilde kennedy MD Age/Sex: 24/F [place] [facility] [place] [facility] [place] Status: Signed Intake Vital Signs 09/15/24 13:18 [...] vendor Chief Complaint: Establish care. Brain fog. Physical Testing Supervisor Required: No Is patient in pain?: [...] 1 current occupational status: employed current occupation: [employer] current occupational exposures/hazards: No pets and animals: [...] and colleagues, with an educational epi from [employer] FRANCI-7 BMS FR[employer]CI-7 Feeling nervous, anxious, or [...] and colleagues, with an educational epi from [employer] HPI HPI Chief Complaint: Establish care. Brain [...] and depression, (more content not included)... Normal [facility] Genital Culture Comprehensiv taqueria 05-11-2025 VAC Reason [...] S Vancomycin Islt DEVANG 0.25 S Normal [facility] Comment on above: Performed By: #### L 700.8000 #### [facility] [address] [place], [place], [address] Gram Stainon 02-06-2025 Reason for Exam: Vaginal Discharge Gram Stain 4+ Gram variable melody No Gram negative diplococci Rare Gram positive cocci Score = 8 Interpretation: 0-3 Normal, 4-6 Intermediate, 7-10 Positive BV Normal [facility] Comment on above: Performed By: #### L 700.8000 #### [facility] [address] [facility] [address] Lap Machine Tender Office Visit Reporton 02-06-2025 Lap Machine Tender Office Visit Report [facility] [address], [address] [place] [address] OFFICE VISIT Date of Service: 02/06/25 MR#: [id number] Acct: [id number] Name: NATA QUEZADA Rep #: [id number] : 2000 Provider: CHONG Oneill ams Age/Sex: 24/F Location: [facility] [place] Status: Signed Intake Vital Signs 09/15/24 13:18 01/04/25 10:20 02/06/25 09:59 Height 5 ft 5 in 5 ft 5 in 5 ft 5 in Weight: 140 lb BMI 23.3 BP 139/84 H Intake Visit Reasons: PARAGUARD REMOVAL Chief Complaint: Paragard Removal Physical Testing Supervisor Required: No Is patient in pain?: [...] 07/28/23 Oseas 40 live - full term Vincent HPI PARAGUARD REMOVAL Details: NATA QUEZADA is [...] Coding Tash (more content not included)... Normal [facility] Vitamin D,25 Hydroxyon 02-02 Vitamin D 25-OH 28.5 ng/mL Low 30-100 [facility] Comment on above: Result Comment: Linda min D Status Deficiency: <20 ng/mL (50nmol/L) Insufficiency: 20-30 ng/mL (50-75 nmol/L) Sufficiency: 30-100 ng/mL (75-250 nmol/L) Toxicity: >100 ng/mL (>250 nmol/L) Performed By: #### L 501.080 #### [facility] [place], [address] Genital Culture Comprehensiv taqueria 01-08-2025 VAC Reason for Exam: Vaginal Discharge Normal vaginal kathy isolated. No yeast, Gardnerella, Neisseria or beta-hemolytic Streptococcus isolated. Genital Culture Comprehensive GNR lactose laborer/grade check Amount Growth Rare Normal [facility] Comment on above: Performed By: #### L 700.8000 #### [facility] [address] [place], [place], [address] Gram Stainon 01-04-2025 GS Reason for Exam: Vaginal Discharge Gram Stain No Gram negative diplococci 2+ White Blood Cells 4+ Gram positive rods 1+ Gram negative rods Score = 1 Interpretation: 0-3 Normal, 4-6 Intermediate, 7-10 Positive BV Normal [facility] Comment on above: Performed By: #### L 700.8000 #### [facility] [address] [place], [place], [address] Lap Machine Tender Office Visit Reporton 01-04-2025 Lap Machine Tender Office Visit Report [facility] [address], [address] [place] [address] OFFICE VISIT Date of Service: 01/04/25 MR#: [id number] Acct: [id number] Name: NATA QUEZADA Rep #: [id number] : 2000 Provider: GALILEO Jordan Age/Sex: 24/F Location: [facility] [place] Status: Signed Intake Vital Signs 09/15/24 13:18 01/04/25 10:10 01/04/25 10:20 Height 5 ft 5 in 5 ft 5 in 5 ft 5 in Weight: 135 lb BMI 22.4 BP 136/84 H Intake Visit Reasons: Culture Chief Complaint: Culture Physical Testing Supervisor Required: No Is patient in pain?: No Allergies No Known Allergies Allergy (Unverified 01/04/25 10:20) Medications ???Medication ???Instructions ???Recorded ???Confirmed ???Type amoxicillin 875 mg tablet 875 mg PO BID #14 tabs 12/29/24 Rx fluconazole 150 mg tablet 150 mg PO Q3D 2 doses #2 tabs 12/2601/04/25 Rx Post menopausal: No Patient : No : No [facility] History Segmental dysfunction of lumbar [...] Bth Weight Gen Labor Lgth Anesthesia Del [facility] Provider FOB 07/28/23 Oseas 40 live - full term Vincent ROS Const Constitutional: Denies chills, fatigue or [...] ROM Decrease (more content not included)... Normal [facility] Progress Noteon 12-12-2024 Oral And Maxillofacial Surgery Resident Authentication Interface Message Text HPI: Nata is [...] Craniofacial, Pediatric Plastic and Reconstructive Surgery 12/12/2024 [facility] Chiropractic Reporton 2024 Chiropractic Report [facility] [address] [place] [address] OFFICE VISIT Date of Service: 11/27/24 MR#: [id number] Acct: [id number] Name: NATA QUEZADA Rep #: [id number] : 2000 Provider: TIRSO Mina Age/Sex: 23/F [place] [facility] [place] Status: Signed Intake Vital Signs 09/15/24 13:18 [...] Aggravating or associated factors: Lifting/Bending 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 Normal [facility] CBC W/Diff, Automatedon 10-05 Absolute Lymph 2.14 X10 3/uL Normal 0.83-4.51 [facility] Comment on above: Performed By: #### L 501.080 #### [facility] [place], [address] Absolute Neut 4.4 X10 3/uL Normal 2.0-7.7 [facility] Comment on above: Performed By: #### L 501.080 #### [facility] [address] [place], [address] Basophils/100 WBC (Bld) 0.6 % Normal 0-1 [facility] Comment on above: Performed By: #### L 501.080 #### [facility] [address] [place], [address] Eosinophils/100 WBC (Bld) 1.0 % Normal 0-5 [facility] Comment on above: Performed By: #### L 501.080 #### [facility] [address] [place], [address] Erythrocyte distribution width (RBC) [Ratio] 12.3 % Normal 11.6-14.6 [facility] Comment on above: Performed By: #### L 501.080 #### [facility] [address] [place], [address] Hematocrit (Bld) [Volume fraction] 43.7 % Normal 37-47 [facility] Comment on above: Performed By: #### L 501.080 #### [facility] [address] [place], [address] Hemoglobin (Bld) [Mass/Vol] 14.6 g/dL Normal 12.0-15.0 [facility] Comment on above: Performed By: #### L 501.080 #### [facility] [address] [place], [address] IG% 0.300 Normal 0.0-0.9 [facility] Comment on above: Result Comment: IG% - Immature Granulocytes (promyelocytes, myelocytes and metamyelocytes) > 1% indicates that a LEFT SHIFT is Present. Performed By: #### L 501.080 #### [facility] [address] [place], [address] Lymphocytes/100 WBC (Bld) 29.8 % Normal 19-41 [facility] Comment on above: Performed By: #### L 501.080 #### [facility] [address] [place], [address] MCH (RBC) [Entitic mass] 28.3 pg Normal 27.0-32.0 [facility] Comment on above: Performed By: #### L 501.080 #### [facility] [address] [place], [address] MCHC (RBC) [Mass/Vol] 33.4 g/dL Normal 32-36 [facility] Comment on above: Performed By: #### L 501.080 #### [facility] [address] [place], [address] MCV (RBC) [Entitic vol] 84.7 fL Normal 81-99 [facility] Comment on above: Performed By: #### L 501.080 #### [facility] [address] [place], [address] Monocytes/100 WBC (Bld) 6.8 % Normal 0-10 [facility] Comment on above: Performed By: #### L 501.080 #### [facility] [address] [place], [address] Neutrophils/100 WBC (Bld) 61.5 % Normal 47-70 [facility] Comment on above: Performed By: #### L 501.080 #### [facility] [address] [place], [address] Nucleated RBC (Bld) [#/Vol] 0 10*3/uL Normal 0-5 [facility] Comment on above: Performed By: #### L 501.080 #### [facility] [address] [place], [address] Platelet mean volume (Bld) [Entitic vol] 10.5 fL Normal 6.2-12.0 [facility] Comment on above: Performed By: #### L 501.080 #### [facility] [address] [place], [address] Platelets (Bld) [#/Vol] 287 10*3/uL Normal 150-450 [facility] Comment on above: Performed By: #### L 501.080 #### [facility] [address] [place], [address] RBC (Bld) [#/Vol] 5.16 10*6/uL Normal 4.2-5.4 [facility] Comment on above: Performed By: #### L 501.080 #### [facility] [address] [place], [address] RDW SD 37.6 fl Normal 35.1-43.9 [facility] Comment on above: Performed By: #### L 501.080 #### [facility] [address] [place], [address] WBC (Bld) [#/Vol] 7.2 10*3/uL Normal 4.4-11.0 [facility] Comment on above: Performed By: #### L 501.080 #### [facility] [address] [place], [address] Comprehensive Metabolic Prof [facility] 10-25-2024 Albumin [Mass/Vol] 4.1 g/dL Normal 3.2-5.0 [facility] Comment on above: Performed By: #### L 500.4050, L100.0100 #### [facility] [address] [place], [address] Albumin/Globulin [Mass ratio] 1.1 {ratio} Normal 0.9-2.4 [facility] Comment on above: Performed By: #### L 500.4050, L100.0100 #### [facility] [address] [place], [address] ALK P 131 U/L High 45-117 [facility] Comment on above: Performed By: #### L 500.4050, L100.0100 #### [facility] [address] [place], [address] ALT [Catalytic activity/Vol] 24 U/L Normal 13-56 [facility] Comment on above: Performed By: #### L 500.4050, L100.0100 #### [facility] [address] [place], [address] AST [Catalytic activity/Vol] 14 U/L Low 15-37 [facility] Comment on above: Performed By: #### L 500.4050, L100.0100 #### [facility] [address] [place], [address] Bilirubin [Mass/Vol] 0.30 mg/dL Normal 0.20-1.00 [facility] Comment on above: Result Comment: For patients on eltrombopag therapy, use of Dimension [place] TBIL is not recommended. Performed By: #### L 500.4050, L100.0100 #### [facility] [address] [place], [address] BUN/CRE 16.8 RATIO Normal 10-20 [facility] Comment on above: Performed By: #### L 500.4050, L100.0100 #### [facility] [address] [place], [address] CA,Total 9.2 mg/dL Normal 8.5-10.1 [facility] Comment on above: Performed By: #### L 500.4050, L100.0100 #### [facility] [address] [place], [address] Chloride [Moles/Vol] 100 mmol/L Normal 98-107 [facility] Comment on above: Performed By: #### L 500.4050, L100.0100 #### [facility] [address] [place], [address] CO2 [Moles/Vol] 27.0 mmol/L Normal 21.0-32.0 [facility] Comment on above: Performed By: #### L 500.4050, L100.0100 #### [facility] [address] [place], [address] Creatinine [Mass/Vol] 0.83 mg/dL Normal 0.55-1.02 [facility] Comment on above: Result Comment: The validity of the calculated GFR GFRAA in patients over 70 years has not been determined. Clinical correlation is essential. Performed By: #### L 500.4050, L100.0100 #### [facility] [address] [place], [address] EST GFR - AA 110 mL/min Normal >60 [facility] Comment on above: Result Comment: Afri can [place] GFR Calc Performed By: #### L 500.4050, L100.0100 #### [facility] [address] [place], [address] GAP 9 Normal 5-15 [facility] Comment on above: Performed By: #### L 500.4050, L100.0100 #### [facility] [address] [place], [address] GFR/1.73 sq M.predicted among non-blacks MDRD (S/P/Bld) [Vol rate/Area] 91 mL/min/{1.73_m2} Normal >60 [facility] Comment on above: Result Comment: Non- GFR Calc Performed By: #### L 500.4050, L100.0100 #### [facility] [address] [place], [address] Globulin (S) [Mass/Vol] 3.7 g/dL Normal 2.2-4.2 [facility] Comment on above: Performed By: #### L 500.4050, L100.0100 #### [facility] [address] [place], [address] Glucose [Mass/Vol] 89 mg/dL Normal 74-106 [facility] Comment on above: Performed By: #### L 500.4050, L100.0100 #### [facility] [address] [place], [address] Potassium [Moles/Vol] 3.8 mmol/L Normal 3.5-5.1 [facility] Comment on above: Performed By: #### L 500.4050, L100.0100 #### [facility] [address] [place], [address] Sodium [Moles/Vol] 137 mmol/L Normal 136-145 [facility] Comment on above: Performed By: #### L 500.4050, L100.0100 #### [facility] [address] [place], [address] T PROT 7.8 g/dL Normal 6.4-8.2 [facility] Comment on above: Performed By: #### L 500.4050, L100.0100 #### [facility] [address] [place], [address] Urea nitrogen [Mass/Vol] 14 mg/dL Normal 7-18 [facility] Comment on above: Performed By: #### L 500.4050, L100.0100 #### [facility] [address] [place], [address] T4 Free Directon 10-25-2024 T4 FREE DIRECT 1.10 ng/dL Normal 0.76-1.46 [facility] Comment on above: Performed By: #### L 500.4050, L100.0100 #### [facility] [address] [place], [address] Thyroid Stim Hormone (TSH)on 10-25-2024 TSH 1.480 uIU/mL Normal 0.358-3.740 [facility] Comment on above: Performed By: #### L 500.4050, L100.0100 #### [facility] [address] [place], [address] Vitamin D,25 Hydroxyon 10-25 Vitamin D 25-OH 18.1 ng/mL Normal [facility] Comment on above: Result Comment: Linda min D 25(OH) Status Range Deficiency <20 ng/mL (50nmol/L) Insufficiency 20 - 30 ng/mL (50 - 75 nmol/L) Sufficiency 30 - 100 ng/mL (75 - 250 nmol/L) Toxicity >100 ng/mL (>250 nmol/L) Performed By: #### L 500.4050, L100.0100 #### [facility] [address] 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 Normal [facility] PAP I-G w/rfx hrHPV-Aptimaon 09-23-2024 ADEQ Comment Normal . [facility] Comment on above: Order Comment: Speci men Comment: [id number] Specimen Comment: Source.............Cervix;Endocervix Specimen Comment: LMP / Prev Treat...[id number] Specimen Comment: No. of containers..01 ThinPrep Vial Result Comment: Sati sfactory for evaluation. No endocervical component is identified. Performed By: #### L 7400.0353 #### [facility] [address] [place], [place], [address] COMM . Normal . [facility] Comment on above: Order Comment: Speci men Comment: [id number] Specimen Comment: Source.............Cervix;Endocervix Specimen Comment: LMP / Prev Treat...[id number] Specimen Comment: No. of containers..01 ThinPrep Vial Performed By: #### L 7400.0353 #### [facility] [address] [facility] [place], [place], [address] COMMENT Comment Normal . [facility] Comment on above: Order Comment: Speci men Comment: [id number] Specimen Comment: Source.............Cervix;Endocervix Specimen Comment: LMP / Prev Treat...[id number] Specimen Comment: No. of containers..01 ThinPrep Vial Result Comment: This liquid based ThinPrep(R) pap test was screened with the use of an image guided system. Performed By: #### L 7400.0353 #### [facility] [address] [place], [place], [address] DIAG Comment Normal . [facility] Comment on above: Order Comment: Speci men Comment: [id number] Specimen Comment: Source.............Cervix;Endocervix Specimen Comment: LMP / Prev Treat...[id number] Specimen Comment: No. of containers..01 ThinPrep Vial Result Comment: NEGA TIVE FOR INTRAEPITHELIAL LESION OR MALIGNANCY. Performed By: #### L 7400.0353 #### [facility] [address] [place], [place], [address] HPV RFLX Comment Normal . [facility] Comment on above: Order Comment: Speci men Comment: [id number] Specimen Comment: Source.............Cervix;Endocervix Specimen Comment: LMP / Prev Treat...[id number] Specimen Comment: No. of containers..01 ThinPrep Vial Result Comment: The HPV DNA reflex criteria were not met with this specimen result therefore, no HPV testing was performed. Performed at: [address] [id number] Extractor Loader And Unloader: Sylvie Dykes MD, Phone: [phone] Performed By: #### L 7400.0353 #### [facility] [address] [place], [address] PAPSMR Comment Normal . [facility] Comment on above: Order Comment: Speci men Comment: [id number] Specimen Comment: Source.............Cervix;Endocervix Specimen Comment: LMP / Prev Treat...[id number] Specimen Comment: No. of containers..01 ThinPrep Vial Result Comment: The Pap smear is a screening test designed to aid in the detection of premalignant and malignant conditions of the uterine cervix. It is not a diagnostic procedure and should not be used as the sole means of detecting cervical cancer. Both false-positive and false-negative reports do occur. Performed By: #### L 7400.0353 #### [facility] [address] [place], [place], [address] PERFORM Comment Normal . [facility] Comment on above: Order Comment: Speci men Comment: [id number] Specimen Comment: Source.............Cervix;Endocervix Specimen Comment: LMP / Prev Treat...[id number] Specimen Comment: No. of containers..01 ThinPrep Vial Result Comment: Shannan Fuchs, Major Assembly Inspector (ASCP) Performed By: #### L 7400.0353 #### [facility] [address] [place], [address] Lap Machine Tender Office Visit Reporton 09-15-2024 Lap Machine Tender Office Visit Report [facility] [address] [facility], [address] [place] [address] OFFICE VISIT Date of Service: 09/15/24 MR#: [id number] Acct: [id number] Name: NATA QUEZADA Rep #: [id number] : 2000 Provider: CHONG Oneill ams Age/Sex: 23/F Location: [facility] [place] Status: Signed Intake Vital Signs 08/28/24 11:28 09/15/24 13:15 09/15/24 13:18 Height 5 ft 5 in 5 ft 5 in 5 ft 5 in Weight: 139 lb 130 lb BMI 23.1 21.6 BP 112/70 128/84 H Blood Pressure Location Lt brachial Position Sitting Intake Visit Reasons: Annual (PROVER) Physical Testing Supervisor Required: No Is patient in pain?: [...] 07/28/23 Oseas 38 live - full term Vincent HPI Encounter for routine gynecological examination Details: [...] the cervix (more content not included)... 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 Normal [facility] Chiropractic Reporton 2023 Chiropractic Report [facility] [address] [place] [address] OFFICE VISIT Date of Service: 08/28/24 MR#: [id number] Acct: [id number] Name: NATA QUEZADA Rep #: [id number] : 2000 Provider: TIRSO Mina Age/Sex: 23/F Location: [facility] [place] Status: Signed with Addenda ADDENDUM by TIRSO [...] Plan (1) (more content not included)... Normal [facility] US Pelvison 07-12-2024 Indication Localization [...] Read By: Elizabeth Robertson M.D. MATERNAL MEDICINE [facility] CNOVon 07-11-2024 CNOV Office Visit (OBGYWM ) NATA QUEZADA ([id number]) 4 F [facility] Date Time Provider Department 07/11/24 12:45 PM LINDA MÁRQUEZ OBGYWM During your visit today, we recorded the following information about you: Blood pressure Weight Last Period 126/78 61.9 kg 05/30/24 Linda Márquez APRN.VIRGEN 07/11/2024 1:01 PM Signed [employer] declined transport company manager. Nata QUEZADA presents today for IUD check. She had a Paraguard placed on 10/01/2023. She has had pain since placement. Patient reported ultrasound 07/11/2024, reported unable to locate strings. REVIEW OF SYSTEMS: PAIN ASSESSMENT: Negative for pain, history of chronic pain, or current treatment for a chronic pain condition. SENSITIVE EXAM: The sensitive examination was discussed with the Patient or Patient's Authorized Supervisor [employer]. As applicable, any other physician, advance practice provider, medical student, or other health professional student that will be observing or involved in the sensitive examination for educational or training purposes was discussed with the Patient or Authorized Supervisor Metalizing. The Patient or Authorized Supervisor Metalizing has agreed to proceed with the sensitive [...] Known Allergies) Date Reviewed: 07/11/2024 Reviewed by: uAra Lowry LPN - Fully Assessed Primary Visit [...] for Encounter Date Provider Department Center 07/11/2024 [id number] MÁRQUEZ Flor[facility] Lukas Encounter Status:Closed by LINDA MÁRQUEZ on 07/11/24 Normal [facility] US Pelvison 07-11-2024 Radiology Study observation (narrative) [facility] UA DIP, URINE (POC)on 2023 BILIRUBIN UA (POCT) Small Abnormal Negative [facility] CLARITY UA (POCT) Clear [facility] COLOR UA (POCT) Yellow [facility] GLUCOSE UA (POCT) Negative Negative mg/dL [facility] Hemoglobin Ql (U) Moderate Abnormal Negative [facility] KETONE UA (POCT) Negative Negative mg/dL [facility] [facility] LEUKOCYTES UA (POCT) Negative Negative [facility] NITRITE UA (POCT) Positive Abnormal Negative [facility] PH UA (POCT) 6.0 4.5 - 8.0 [facility] Protein Ql (U) 30 mg/dL Abnormal Negative mg/dL [facility] SPECIFIC GRAVITY UA (POCT) >=1.030 1.005 - 1.030 [facility] UROBILINOGEN UA (POCT) 0.2 E.U./dL Normal E.U./dL [facility] CNPNon 08-20-2023 CNPN Telephone ([id number]) TRACEEMayurNATA ([id number]) 02 [facility] Date Time Provider Department 08/20/23 ADILIA KIRKPATRICK [id number] During your visit today, we recorded the following information about you: Adilia Kirkpatrick RN 08/20/2023 3:03 PM Signed OB Post Discharge Patient Call Back: Date: 08/20/2023 Patient Name: Nata Penaloza : 2000 Delivery Summary: Yaz Oseas Karmer [[id number]] Delivery Information: Delivery Date: 07/28/23 Delivery type: Vaginal, Spontaneous Delivering Clinician: Yodit Fuchs MD Vacuum Used: No Forceps Used: No Shoulder Dystocia Present: No Lacerations: 1st Episiotomy: None [place]: Gender: Male Weight (grams): 2772 g One Minute : 9 Five Minute : 9 Patient was contacted after her inpatient discharge from [facility]. She reported the following as [...] in: Bassinet Baby in need of a crib/Wcdc-qoy-Jxtu: No Baby's feeding: Method: Human milk only. Breast Feeding Problems: Darron Betts, no problems BF but is also starting to pump and feed the EBM back to baby via bottle. Frequency: Within Normal Limits Education: N/A Baby's elimination habits: Average wet diapers: Within Normal Limits Average dirty diapers: Within Normal Limits Education: N/A Follow-up appointments: Scheduled appointment with a maintenance service supervisor: Has seen Scheduled a follow up appointment [...] Encounter Status:Closed by ADIL[facility] HNO ID: [id number] Author: Delaney Durand APRN.CNM Service: Obstetrics Author Type: Director Of Consulting Services Type: Discharge Summary Filed: 07/30/2023 7:28 AM [...] PROCEDURES/SURGERY DURING HOSPITALIZATION: Delivery Summary: Ruben Penaloza [[id number]] Delivery Information: Delivery Date: 07/28/23 Delivery type: [...] Commonly known (more content not included)... Normal [facility] ANES POSTPROC EVALon 023 ANES POSTPROC EVAL HNO ID: [id number] Author: Huey Light APRN.SPONGE PRESS OPERATOR Service: Anesthesiology Author Type: Nurse Records Management Director Type: Anesthesia Postprocedure Evaluation Filed: 07/29/2023 7:15 AM Note Text: POST ANESTHESIA EVALUATION NOTE : 2000 Procedure Summary Date: 07/28/23 Room / Location: Anesthesia Start: 0205 Anesthesia Stop: 48 Procedure: LABOR ANALGESIA Diagnosis: Scheduled Providers: Responsible Provider: Prachi Frederick APRN.SPONGE PRESS OPERATOR Anesthesia Type: epidural ASA Status: 2 Anesthesia Type: epidural Last Vitals Vitals Value Taken Time BP 07/29/23 0714 Temp 07/29/23 0714 Pulse 07/29/23 0714 Resp 07/29/23 0714 SpO2 07/29/23 0714 Ruben Penaloza [[id number]] Baby Delivery: 07/28/2023 0948 Post Anesthesia Patient [...] Anesthesia Observations No Documentation SIGNATURE: Huey Light APRN.SPONGE PRESS OPERATOR PATIENT NAME: Nata Penaloza DATE: July 29, 2023 TIME: 7:14 AM CSN: [id number] [facility] 07-29-2023 [facility] Telephone (ELSI) NATA PENALOZA ([id number]) [birth year] F [facility] Date Time Provider Department 07/29/23 DELANEY DURAND [...] by DELANEY DURAND on 07/29/23 [facility] ANES PRE-OPon 07-28-2023 ANES PRE-OP HNO ID: [id number] Author: Rodri French APRN.SPONGE PRESS OPERATOR Service: Anesthesiology Author Type: Nurse Records Management Director Type: Anesthesia Preprocedure Evaluation Filed: 07/28/2023 2:38 AM Note Text: OB ANESTHESIA PRE-PROCEDURE ASSESSMENT PATIENT NAME: Nata Penaloza : 2000 [facility] ANES DIRECTOR COMPLIANCE: Previous OB anesthetic: None No OB anesthesia [...] and consent discussed: yes. Patient / Responsible [employer] agrees to proceed: yes Patient / [...] 48 hours of Surgery/Procedure. SIGNATURE: Rodri French APRN.SPONGE PRESS OPERATOR PATIENT NAME: Nata Penaloza DATE: July 28, 2023 TIME: 2:37 AM : 2000 [facility] LD NOTEon 07-28-2023 LD NOTE HNO ID: [id number] Author: An Azevedo MD Service: Obstetrics Author [...] Method: Misoprostol;Cervical Ripening Balloon (CRB);Oxytocin;AROM Ruben Penaloza [[id number]] Episiotomy/Laceration: Episiotomy: None Lacerations: 1st Perineal Repair [...] old year old female who presented to [facility] with Estimated Date of Delivery: 08/06/23 [...] July 28, 2023 TIME: 10:31 AM Normal [facility] CBC W Auto Differential pane l (Bld)on 07-27-2023 Basophils (Bld) [#/Vol] 0.03 10*3/uL Normal <0.11 [facility] Comment on above: Order Comment: Speci men Type: BLOOD SPECIMEN Ordering Facility: [facility] Address: [address] [place] [address] Performed By: #### 5 7021-8 #### [facility] CLIA [id number] [address] [place] [address] [place] Basophils/100 WBC (Bld) 0.3 % Normal [facility] Comment on above: Order Comment: Speci men Type: BLOOD SPECIMEN Ordering Facility: [facility] Address: [address] [place] [address] Performed By: #### 5 7021-8 #### [facility] CLIA [id number] [address] Differential cell count method Nom (Bld) Auto Normal [facility] Comment on above: Order Comment: Speci men Type: BLOOD SPECIMEN Ordering Facility: [facility] Address: [address] [place] [address] Performed By: #### 5 7021-8 #### [facility] CLIA [id number] [address] Eosinophils (Bld) [#/Vol] 0.03 10*3/uL Normal <0.46 [facility] Comment on above: Order Comment: Speci men Type: BLOOD SPECIMEN Ordering Facility: [facility] Address: [address] [place] [address] Performed By: #### 5 7021-8 #### [facility] CLIA [id number] [address] Eosinophils/100 WBC (Bld) 0.3 % Normal [facility] Comment on above: Order Comment: Speci men Type: BLOOD SPECIMEN Ordering Facility: [facility] Address: [address] [place] [address] Performed By: #### 5 7021-8 #### [facility] CLIA [id number] [address] Erythrocyte distribution width (RBC) [Ratio] 11.9 % Normal 11.5-15.0 [facility] Comment on above: Order Comment: Speci men Type: BLOOD SPECIMEN Ordering Facility: [facility] Address: [address] [place] [address] Performed By: #### 5 7021-8 #### [facility] CLIA [id number] [address] Hematocrit (Bld) [Volume fraction] 39.6 % Normal 36.0-46.0 [facility] Comment on above: Order Comment: Speci men Type: BLOOD SPECIMEN Ordering Facility: [facility] Address: [address] [place] [address] Performed By: #### 5 7021-8 #### [facility] CLIA [id number] [address] [place] Hemoglobin (Bld) [Mass/Vol] 13.8 g/dL Normal 11.5-15.5 [facility] Comment on above: Order Comment: Speci men Type: BLOOD SPECIMEN Ordering Facility: [facility] Address: [address] [place] [address] Performed By: #### 5 7021-8 #### [facility] CLIA [id number] [address] [place] Immature granulocytes (Bld) [#/Vol] 0.03 10*3/uL Normal <0.10 [facility] Comment on above: Order Comment: Speci men Type: BLOOD SPECIMEN Ordering Facility: [facility] Address: [address] [place] [address] Performed By: #### 5 7021-8 #### [facility] CLIA [id number] [address] [place] Immature granulocytes/100 WBC (Bld) 0.3 % Normal [facility] Comment on above: Order Comment: Speci men Type: BLOOD SPECIMEN Ordering Facility: [facility] Address: [address] [place] [address] Performed By: #### 5 7021-8 #### [facility] CLIA [id number] [address] [place] Lymphocytes (Bld) [#/Vol] 1.58 10*3/uL Normal 1.00-4.00 [facility] Comment on above: Order Comment: Speci men Type: BLOOD SPECIMEN Ordering Facility: [facility] Address: [address] [place] [address] Performed By: #### 5 7021-8 #### [facility] CLIA [id number] [address] [place] Lymphocytes/100 WBC (Bld) 16.7 % Normal [facility] Comment on above: Order Comment: Speci men Type: BLOOD SPECIMEN Ordering Facility: [facility] Address: [address] [place] [address] Performed By: #### 5 7021-8 #### [facility] CLIA [id number] [address] MCH (RBC) [Entitic mass] 29.9 pg Normal 26.0-34.0 [facility] Comment on above: Order Comment: Speci men Type: BLOOD SPECIMEN Ordering Facility: [facility] Address: [address] [place] [address] Performed By: #### 5 7021-8 #### [facility] CLIA [id number] [address] [place] MCHC (RBC) [Mass/Vol] 34.8 g/dL Normal 30.5-36.0 [facility] Comment on above: Order Comment: Speci men Type: BLOOD SPECIMEN Ordering Facility: [facility] Address: [address] [place] [address] Performed By: #### 5 7021-8 #### [facility] CLIA [id number] [address] MCV (RBC) [Entitic vol] 85.9 fL Normal 80.0-100.0 [facility] Comment on above: Order Comment: Speci men Type: BLOOD SPECIMEN Ordering Facility: [facility] Address: [address] [place] [address] Performed By: #### 5 7021-8 #### [facility] CLIA [id number] [address] [place] Monocytes (Bld) [#/Vol] 0.69 10*3/uL Normal <0.87 [facility] Comment on above: Order Comment: Speci men Type: BLOOD SPECIMEN Ordering Facility: [facility] Address: [address] [place] [address] Performed By: #### 5 7021-8 #### [facility] CLIA [id number] [address] Monocytes/100 WBC (Bld) 7.3 % Normal [facility] Comment on above: Order Comment: Speci men Type: BLOOD SPECIMEN Ordering Facility: [facility] Address: [address] [place] [address] Performed By: #### 5 7021-8 #### [facility] CLIA [id number] [address] [place] Neutrophils (Bld) [#/Vol] 7.08 10*3/uL Normal 1.45-7.50 [facility] Comment on above: Order Comment: Speci men Type: BLOOD SPECIMEN Ordering Facility: [facility] Address: [address] [place] [address] Performed By: #### 5 7021-8 #### [facility] CLIA [id number] [address] Neutrophils/100 WBC (Bld) 75.1 % Normal [facility] Comment on above: Order Comment: Speci men Type: BLOOD SPECIMEN Ordering Facility: [facility] Address: [address] [place] [address] Performed By: #### 5 7021-8 #### [facility] CLIA [id number] [address] [place] Nucleated RBC (Bld) [#/Vol] 10*3/uL Normal <0.01 [facility] Comment on above: Order Comment: Speci men Type: BLOOD SPECIMEN Ordering Facility: [facility] Address: [address] [place] [address] Performed By: #### 5 7021-8 #### [facility] CLIA [id number] [address] Nucleated RBC/100 WBC (Bld) [Ratio] 0.0 /100 WBC Normal [facility] Comment on above: Order Comment: Speci men Type: BLOOD SPECIMEN Ordering Facility: [facility] Address: [address] [place] [address] Performed By: #### 5 7021-8 #### [facility] CLIA [id number] [address] [place] Platelet mean volume (Bld) [Entitic vol] 12.3 fL Normal 9.0-12.7 [facility] Comment on above: Order Comment: Speci men Type: BLOOD SPECIMEN Ordering Facility: [facility] Address: [address] [place] [address] Performed By: #### 5 7021-8 #### [facility] CLIA [id number] [address] OF [facility] Platelets (Bld) [#/Vol] 215 10*3/uL Normal 150-400 [facility] Comment on above: Order Comment: Speci men Type: BLOOD SPECIMEN Ordering Facility: [facility] Address: [address] [place] [address] Performed By: #### 5 7021-8 #### [facility] CLIA [id number] [address] OF [facility] RBC (Bld) [#/Vol] 4.61 10*6/uL Normal 3.90-5.20 [facility] Comment on above: Order Comment: Speci men Type: BLOOD SPECIMEN Ordering Facility: [facility] Address: [address] [place] [address] Performed By: #### 5 7021-8 #### [facility] CLIA [id number] [address] OF [facility] WBC (Bld) [#/Vol] 9.44 10*3/uL Normal 3.70-11.00 [facility] Comment on above: Order Comment: Speci men Type: BLOOD SPECIMEN Ordering Facility: [facility] Address: [address] [place] [address] Performed By: #### 5 7021-8 #### [facility] CLIA [id number] [address] [place] Comprehensive metabolic 2000 panelon 07-27-2023 Albumin [Mass/Vol] 3.7 g/dL Low 3.9-4.9 [facility] Comment on above: Order Comment: Speci men Type: BLOOD SPECIMENOrdering Facility: [facility] Address: [address] [place] [address] Performed By: #### 2 4323-8 ####[facility] [id number] [place] [address] [place] ALP [Catalytic activity/Vol] 251 U/L High 34-123 [facility] Comment on above: Order Comment: Speci men Type: BLOOD SPECIMENOrdering Facility: [facility] Address: [address] [place] [address] Performed By: #### 2 4323-8 ####[facility] [id number] [place] [address] [place] ALT With P-5'-P [Catalytic activity/Vol] 16 U/L Normal 7-38 [facility] Comment on above: Order Comment: Speci men Type: BLOOD SPECIMENOrdering Facility: [facility] Address: [address] [place] [address] Performed By: #### 2 4323-8 ####[facility] [id number] [address] [place] [facility] Anion gap [Moles/Vol] 12 mmol/L Normal 9-18 [facility] Comment on above: Order Comment: Speci men Type: BLOOD SPECIMENOrdering Facility: [facility] Address: [address] [place] [address] Performed By: #### 2 4323-8 ####[facility]ORY[facility]IA [id number] [address] [place] AST With P-5'-P [Catalytic activity/Vol] 21 U/L Normal 13-35 [facility] Comment on above: Order Comment: Speci men Type: BLOOD SPECIMENOrdering Facility: [facility] Address: [address] [place] [address] Performed By: #### 2 4323-8 ####[facility]ORY[facility]IA [id number] [address] [place] Bilirubin [Mass/Vol] 0.2 mg/dL Normal 0.2-1.3 [facility] Comment on above: Order Comment: Speci men Type: BLOOD SPECIMENOrdering Facility: [facility] Address: [address] [place] [address] Performed By: #### 2 4323-8 ####[facility] [id number] [place] [address] [place] Calcium [Mass/Vol] 9.1 mg/dL Normal 8.5-10.2 [facility] Comment on above: Order Comment: Speci men Type: BLOOD SPECIMENOrdering Facility: [facility] Address: [address] [place] [address] Performed By: #### 2 4323-8 ####[facility]ORY[facility]IA [id number] [place] [address] [place] Chloride [Moles/Vol] 104 mmol/L Normal 97-105 [facility] Comment on above: Order Comment: Speci men Type: BLOOD SPECIMENOrdering Facility: [facility] Address: [address] [place] [address] Performed By: #### 2 4323-8 ####[facility]ORY[facility]IA [id number] [place] [address] [place] CO2 [Moles/Vol] 21 mmol/L Low 22-30 [facility] Comment on above: Order Comment: Speci men Type: BLOOD SPECIMENOrdering Facility: [facility] Address: [address] [place] [address] Performed By: #### 2 4323-8 ####[facility]ORYCLIA [id number] [address] [place] Creatinine [Mass/Vol] 0.58 mg/dL Normal 0.58-0.96 [facility] Comment on above: Order Comment: Speci men Type: BLOOD SPECIMENOrdering Facility: [facility] Address: [address] [place] [address] Performed By: #### 2 4323-8 ####[facility]ORYCLIA [id number] [address] Creatinine and Glomerular filtration rate.predicted panel (S/P/Bld) 133 mL/min/1.73m??? Normal >=60 [facility] Comment on above: Order Comment: Speci men Type: BLOOD SPECIMENOrdering Facility: [facility] Address: [address] [place] [address] Result Comment: Isela mated Glomerular Filtration Rate [...] actual GFR. Performed By: #### 2 4323-8 ####[facility]ORY[facility]IA [id number] [place] [address] [place] Glucose [Mass/Vol] 88 mg/dL Normal 74-99 [facility] Comment on above: Order Comment: Speci men Type: BLOOD SPECIMENOrdering Facility: [facility] Address: [address] [place] [address] Result Comment: The [place] [employer] (ADA) provides guidance for cutoff [...] Standards of Medical Care in Diabetes 2016, [place] [employer]. Diabetes Care. 2016.39(Suppl 1). Performed By: #### 2 4323-8 ####[facility]ORYCLIA [id number] [place] [id number] [place] Potassium [Moles/Vol] 3.8 mmol/L Normal 3.7-5.1 [facility] Comment on above: Order Comment: Speci men Type: BLOOD SPECIMENOrdering Facility: [facility] Address: [address] [place] [address] Performed By: #### 2 4323-8 ####[facility]ORYCLIA [id number] [place] [id number] [place] Protein [Mass/Vol] 6.5 g/dL Normal 6.3-8.0 [facility] Comment on above: Order Comment: Wiley escobedo Type: BLOOD SPECIMENOrdering Facility: [facility] Address: [address] [place] [address] Performed By: #### 2 4323-8 ####[facility]ORYCLIA [id number] [place] [id number] [facility] Sodium [Moles/Vol] 137 mmol/L Normal 136-144 [facility] Comment on above: Order Comment: Ousmanejessy escobedo Type: BLOOD SPECIMENOrdering Facility: [facility] Address: [address] [place] [address] Performed By: #### 2 4323-8 ####[facility]ORYCLIA [id number] [address] Urea nitrogen [Mass/Vol] 13 mg/dL Normal 7-21 [facility] Comment on above: Order Comment: Specjessy escobedo Type: BLOOD SPECIMENOrdering Facility: [facility] Address: [address] [place] [address] Performed By: #### 2 4323-8 ####[facility]ORYCLIA [id number] [address] OF [facility] HISTORY PHYSICALon HISTORY PHYSICAL HNO ID: [id number] Author: Leelee Saini MD Service: Obstetrics Author [...] position: cephalic, (more content not included)... Normal [facility] TYPE + SCREEN PRENATALon ABO B Normal [facility] Comment on above: Order Comment: Speci men Type: BLOOD SPECIMENOrdering Facility: [facility] Address: [address] [place] [address] Performed By: #### T SPN ####[facility]CL[facility] [id number] [address] HISTORICAL AB SCR STATUS Negative Normal [facility] Comment on above: Order Comment: Speci men Type: BLOOD SPECIMENOrdering Facility: [facility] Address: [address] [place] [address] Performed By: #### T SPN ####[facility]CLIA [id number] [address] Rh Nom (Bld) Positive Normal [facility] Comment on above: Order Comment: Speci men Type: BLOOD SPECIMENOrdering Facility: [facility] Address: [address] [place] [address] Performed By: #### T SPN ####[facility]ANKCLIA [id number] [address] TYPE AND SCREEN EXPIRATION 07/30/2023 23:59 Normal [facility] Comment on above: Order Comment: Speci men Type: BLOOD SPECIMENOrdering Facility: [facility] Address: [address] [place] [address] Performed By: #### T SPN ####[facility]ANKCLIA [id number] [address] CBC panel Auto (Bld)on 07-26 Erythrocyte distribution width (RBC) [Ratio] 11.9 % Normal 11.5-15.0 [facility] Comment on above: Order Comment: Speci men Type: BLOOD SPECIMEN [facility] Address: [address] [place] [address] Performed By: #### 5 8410-2 #### [facility] CLIA [id number] [address] Hematocrit (Bld) [Volume fraction] 39.1 % Normal 36.0-46.0 [facility] Comment on above: Order Comment: Speci men Type: BLOOD SPECIMEN [facility] Address: [address] [place] [address] Performed By: #### 5 8410-2 #### [facility] CLIA [id number] [address] Hemoglobin (Bld) [Mass/Vol] 13.8 g/dL Normal 11.5-15.5 [facility] Comment on above: Order Comment: Speci men Type: BLOOD SPECIMEN [facility] Address: [address] [place] [address] Performed By: #### 5 8410-2 #### [facility] CLIA [id number] [address] MCH (RBC) [Entitic mass] 30.3 pg Normal 26.0-34.0 [facility] Comment on above: Order Comment: Speci men Type: BLOOD SPECIMEN [facility] Address: [address] [place] [address] Performed By: #### 5 8410-2 #### [facility] CLIA [id number] [address] [place] MCHC (RBC) [Mass/Vol] 35.3 g/dL Normal 30.5-36.0 [facility] Comment on above: Order Comment: Speci men Type: BLOOD SPECIMEN [facility] Address: [address] [place] [address] Performed By: #### 5 8410-2 #### [facility] CLIA [id number] [address] MCV (RBC) [Entitic vol] 85.7 fL Normal 80.0-100.0 [facility] Comment on above: Order Comment: Speci men Type: BLOOD SPECIMEN [facility] Address: [address] [place] [address] Performed By: #### 5 8410-2 #### [facility] CLIA [id number] [address] [place] Nucleated RBC (Bld) [#/Vol] 10*3/uL Normal <0.01 [facility] Comment on above: Order Comment: Speci men Type: BLOOD SPECIMEN [facility] Address: [address] [place] [address] Performed By: #### 5 8410-2 #### [facility] CLIA [id number] [address] [place] Platelet mean volume (Bld) [Entitic vol] 12.3 fL Normal 9.0-12.7 [facility] Comment on above: Order Comment: Speci men Type: BLOOD SPECIMEN [facility] Address: [address] [place] [address] Performed By: #### 5 8410-2 #### [facility] CLIA [id number] [address] [place] Platelets (Bld) [#/Vol] 211 10*3/uL Normal 150-400 [facility] Comment on above: Order Comment: Speci men Type: BLOOD SPECIMEN [facility] Address: [address] [place] [address] Performed By: #### 5 8410-2 #### [facility] CLIA [id number] [address] [place] RBC (Bld) [#/Vol] 4.56 10*6/uL Normal 3.90-5.20 [facility] Comment on above: Order Comment: Speci men Type: BLOOD SPECIMEN [facility] Address: [address] [place] [address] Performed By: #### 5 8410-2 #### [facility] CLIA [id number] [address] [place] WBC (Bld) [#/Vol] 11.02 10*3/uL High 3.70-11.00 [facility] Comment on above: Order Comment: Speci men Type: BLOOD SPECIMEN [facility] Address: [address] [place] [address] Performed By: #### 5 8410-2 #### [facility] CLIA [id number] [address] OF [facility] Comprehensive metabolic 2000 panelon 07-26-2023 Albumin [Mass/Vol] 3.7 g/dL Low 3.9-4.9 [facility] Comment on above: Order Comment: Speci men Type: BLOOD SPECIMEN [facility] Address: [address] [place] [address] Performed By: #### 2 4323-8 #### [facility] CLIA [id number] [address] STATES OF [facility] ALP [Catalytic activity/Vol] 247 U/L High 34-123 [facility] Comment on above: Order Comment: Speci men Type: BLOOD SPECIMEN Ordering Facility: [facility] Address: [address] [place] [address] Performed By: #### 2 4323-8 #### [facility] CLIA [id number] [address] ALT With P-5'-P [Catalytic activity/Vol] 15 U/L Normal 7-38 [facility] Comment on above: Order Comment: Speci men Type: BLOOD SPECIMEN Ordering Facility: [facility] Address: [address] [place] [address] Performed By: #### 2 4323-8 #### [facility] CLIA [id number] [address] Anion gap [Moles/Vol] 14 mmol/L Normal 9-18 [facility] Comment on above: Order Comment: Speci men Type: BLOOD SPECIMEN Ordering Facility: [facility] Address: [address] [place] [address] Performed By: #### 2 4323-8 #### [facility] CLIA [id number] [address] STATES OF [facility] AST With P-5'-P [Catalytic activity/Vol] 19 U/L Normal 13-35 [facility] Comment on above: Order Comment: Speci men Type: BLOOD SPECIMEN Ordering Facility: [facility] Address: [address] [place] [address] Performed By: #### 2 4323-8 #### [facility] CLIA [id number] [address] [place] Bilirubin [Mass/Vol] 0.2 mg/dL Normal 0.2-1.3 [facility] Comment on above: Order Comment: Speci men Type: BLOOD SPECIMEN Ordering Facility: [facility] Address: [address] [place] [address] Performed By: #### 2 4323-8 #### [facility] CLIA [id number] [address] [place] Calcium [Mass/Vol] 9.0 mg/dL Normal 8.5-10.2 [facility] Comment on above: Order Comment: Speci men Type: BLOOD SPECIMEN Ordering Facility: [facility] Address: [address] [place] [address] Performed By: #### 2 4323-8 #### [facility] CLIA [id number] [address] [place] Chloride [Moles/Vol] 101 mmol/L Normal 97-105 [facility] Comment on above: Order Comment: Speci men Type: BLOOD SPECIMEN Ordering Facility: [facility] Address: [address] [place] [address] Performed By: #### 2 4323-8 #### [facility] CLIA [id number] [address] [place] CO2 [Moles/Vol] 20 mmol/L Low 22-30 [facility] Comment on above: Order Comment: Speci men Type: BLOOD SPECIMEN Ordering Facility: [facility] Address: [address] [place] [address] Performed By: #### 2 4323-8 #### [facility] CLIA [id number] [address] Creatinine [Mass/Vol] 0.54 mg/dL Low 0.58-0.96 [facility] Comment on above: Order Comment: Wiley fanny Type: BLOOD SPECIMEN Ordering Facility: [facility] Address: [address] [place] [address] Performed By: #### 2 4323-8 #### [facility] CLIA [id number] [address] Creatinine and Glomerular filtration rate.predicted panel (S/P/Bld) 135 mL/min/1.73m??? Normal >=60 [facility] Comment on above: Order Comment: Wiley fanny Type: BLOOD SPECIMEN Ordering Facility: [facility] Address: [address] [place] [address] Result Comment: Isela mated Glomerular Filtration Rate [...] Performed By: #### 2 4323-8 #### [facility] CLIA [id number] [address] Glucose [Mass/Vol] 71 mg/dL Low 74-99 [facility] Comment on above: Order Comment: Wiley fanny Type: BLOOD SPECIMEN Ordering Facility: [facility] Address: [address] [place] [address] Result Comment: The [place] Diabetes Association (ADA) provides guidance for cutoff [...] Standards of Medical Care in Diabetes 2016, [place] Diabetes Association. Diabetes Care. 2016.39(Suppl 1). Performed By: #### 2 4323-8 #### [facility] CLIA [id number] [address] [place] Potassium [Moles/Vol] 3.7 mmol/L Normal 3.7-5.1 [facility] Comment on above: Order Comment: Speci men Type: BLOOD SPECIMEN Ordering Facility: [facility] Address: [address] [place] [address] Performed By: #### 2 4323-8 #### [facility] CLIA [id number] [address] [place] Protein [Mass/Vol] 6.8 g/dL Normal 6.3-8.0 [facility] Comment on above: Order Comment: Speci men Type: BLOOD SPECIMEN Ordering Facility: [facility] Address: [address] [place] [address] Performed By: #### 2 4323-8 #### [facility] CLIA [id number] [address] [place] Sodium [Moles/Vol] 135 mmol/L Low 136-144 [facility] Comment on above: Order Comment: Speci men Type: BLOOD SPECIMEN Ordering Facility: [facility] Address: [address] [place] [address] Performed By: #### 2 4323-8 #### [facility] CLIA [id number] [address] [place] Urea nitrogen [Mass/Vol] 13 mg/dL Normal 7-21 [facility] Comment on above: Order Comment: Speci men Type: BLOOD SPECIMEN Ordering Facility: [facility] Address: [address] [place] [address] Performed By: #### 2 4323-8 #### [facility] CLIA [id number] 1 [place] [address] [place] Prot/Creat Uron 07-26-2023 Protein/Creatinine (U) [Mass ratio] 0.11 mg/mg Normal <0.15 [facility] Comment on above: Order Comment: Speci men Type: URINE SPECIMEN Ordering Facility: [facility] Address: [address] [place] [address] Result Comment: Adul t Proteinuria Categories: <0.15 mg/mg is considered normal to mildly increased 0.15 - 0.50 mg/mg is considered moderately increased >0.50 mg/mg is considered severely increased KDIGO. (2013). KDIGO 2012 Clinical Practice Guideline for the Evaluation and Management of Chronic Kidney Disease. Official Journal of the International Society of Nephrology, 3(1), 1-150. Performed By: #### 2 890-2 #### [facility] CLIA [id number] [address] [place] Protein/Creatinine (U) [Mass ratio]on 07-26-2023 Creatinine (U) [Mass/Vol] 56.9 mg/dL Normal 42.2-237.9 [facility] Comment on above: Order Comment: Speci men Type: URINE SPECIMEN Ordering Facility: [facility] Address: [address] [place] [address] Performed By: #### 2 890-2 #### [facility] CLIA [id number] [address] [place] Protein (U) [Mass/Vol] 6 mg/dL Normal 0-20 [facility] Comment on above: Order Comment: Speci men Type: URINE SPECIMEN Ordering Facility: [facility] Address: [address] [place] [address] Performed By: #### 2 890-2 #### [facility] CLIA [id number] [address] [place] Prot/Creat Uron 07-23-2023 Protein/Creatinine (U) [Mass ratio] 0.10 mg/mg Normal <0.15 [facility] Comment on above: Order Comment: Speci men Type: URINE SPECIMEN Ordering Facility: [facility] Address: [address] [place] [address] Result Comment: Adul t Proteinuria Categories: <0.15 mg/mg is considered normal to mildly increased 0.15 - 0.50 mg/mg is considered moderately increased >0.50 mg/mg is considered severely increased KDIGO. (2013). KDIGO 2012 Clinical Practice Guideline for the Evaluation and Management of Chronic Kidney Disease. Official Journal of the International Society of Nephrology, 3(1), 1-150. Performed By: #### 2 890-2 #### [facility] CLIA [id number] [address] [place] [address] [place] Protein/Creatinine (U) [Mass ratio]on 07-23-2023 Creatinine (U) [Mass/Vol] 420.4 mg/dL High 20.0-300.0 [facility] Comment on above: Order Comment: Speci men Type: URINE SPECIMEN Ordering Facility: [facility] Address: [address] [place] [address] Performed By: #### 2 890-2 #### [facility] CLIA [id number] [address] [place] [address] [place] Protein (U) [Mass/Vol] 41 mg/dL High 0-20 [facility] Comment on above: Order Comment: Speci men Type: URINE SPECIMEN Ordering Facility: [facility] Address: [address] [place] [address] Performed By: #### 2 890-2 #### [facility] CLIA [id number] [address] [place], [place] [id number] [place] URINE OB DIP B/Oon 3 Glucose Ql (U) Negative Neg mg/dL [facility] Protein.monoclonal (U) [Mass/Vol] 30 mg/dL Abnormal Neg mg/dL [facility] URINE OB DIP B/Oon 3 Glucose Ql (U) Negative Neg mg/dL [facility] Protein.monoclonal (U) [Mass/Vol] Trace Neg mg/dL [facility] URINE OB DIP B/Oon Glucose Ql (U) Negative Neg mg/dL [facility] Protein.monoclonal (U) [Mass/Vol] Negative Neg mg/dL [facility] Reagin and Treponema pallidu m IgG and IgM [Interp]on 06-26-2023 T. pallidum IgG+IgM IA Ql (S) Non-Reactive Nonreactive [facility] SYPHILIS TOTAL W/REFLEXon Reagin and Treponema pallidum IgG and IgM [Interp] Cannot exclude recent Treponemal infection if specimen collected within 7-10 days after appearance of suspect lesions or 2-3 weeks after an exposure. Clinical correlation is required. [facility] CBC panel Auto (Bld)on 06-25 Erythrocyte distribution width (RBC) [Ratio] 12.2 % 11.5 - 15.0 % [facility] Hematocrit (Bld) [Volume fraction] 36.0 % 36.0 - 46.0 % [facility] Hemoglobin (Bld) [Mass/Vol] 13.1 g/dL 11.5 - 15.5 g/dL [facility] MCH (RBC) [Entitic mass] 31.3 pg 26.0 - 34.0 pg [facility] MCHC (RBC) [Mass/Vol] 36.4 g/dL High 30.5 - 36.0 g/dL [facility] MCV (RBC) [Entitic vol] 85.9 fL 80.0 - 100.0 fL [facility] Nucleated RBC (Bld) [#/Vol] <0.01 k/uL [facility] Platelet mean volume (Bld) [Entitic vol] 11.7 fL 9.0 - 12.7 fL [facility] Platelets (Bld) [#/Vol] 208 10*3/uL 150 - 400 k/uL [facility] RBC (Bld) [#/Vol] 4.19 10*6/uL 3.90 - 5.20 m/uL [facility] WBC (Bld) [#/Vol] 9.19 10*3/uL 3.70 - 11.00 k/u L [facility] Comprehensive metabolic 2000 panelon 06-25-2023 Albumin [Mass/Vol] 3.5 g/dL Low 3.9 - 4.9 g/dL [facility] ALP [Catalytic activity/Vol] 160 U/L High 34 - 123 U/L [facility] ALT [Catalytic activity/Vol] 22 U/L 7 - 38 U/L [facility] Anion gap [Moles/Vol] 14 mmol/L 9 - 18 mmol/L [facility] AST [Catalytic activity/Vol] 18 U/L 13 - 35 U/L [facility] Bilirubin [Mass/Vol] 0.2 mg/dL 0.2 - 1.3 mg/dL [facility] Calcium [Mass/Vol] 8.7 mg/dL 8.5 - 10.2 mg/dL [facility] Chloride [Moles/Vol] 103 mmol/L 97 - 105 mmol/L [facility] CO2 [Moles/Vol] 21 mmol/L Low 22 - 30 mmol/L [facility] Creatinine [Mass/Vol] 0.53 mg/dL Low 0.58 - 0.96 mg/dL [facility] Estimated Glomerular Filtration Rate 136 mL/min/1.73m >=60 mL/min/1.73m [facility] Glucose [Mass/Vol] 124 mg/dL High 74 - 99 mg/dL [facility] Potassium [Moles/Vol] 3.5 mmol/L Low 3.7 - 5.1 mmol/L [facility] Protein [Mass/Vol] 6.2 g/dL Low 6.3 - 8.0 g/dL Cl [facility] Sodium [Moles/Vol] 138 mmol/L 136 - 144 mmol/L [facility] Urea nitrogen [Mass/Vol] 9 mg/dL 7 - 21 mg/dL [facility] URINE OB DIP B/Oon 3 Glucose Ql (U) Negative Neg mg/dL [facility] Protein.monoclonal (U) [Mass/Vol] TRACE Abnormal Neg mg/dL [facility] STREP A MOLECULAR (POC)on Procedural Control Valid [facility] Strep A (POCT) Negative Negative [facility] URINE OB DIP B/Oon 3 Glucose Ql (U) Negative Neg mg/dL [facility] Protein.monoclonal (U) [Mass/Vol] Negative Neg mg/dL [facility] COVID NAAT, ROUTINEon 2022 SARS-CoV-2 (COVID-19) RNA TESS+probe Ql (Resp) Not detected See comment [facility] ROUTINE FLU A/B + RSVon 05-04 FLUAV RNA TESS+probe Ql (Unsp spec) Not detected Not Detected [facility] FLUBV RNA TESS+probe Ql (Unsp spec) Not detected Not Detected [facility] RSV A RNA TESS+probe Ql (Unsp spec) Not detected Not Detected [facility] STREP A MOLECULAR (POC)on Procedural Control Valid [facility] Strep A (POCT) Negative Negative [facility] URINE OB DIP B/Oon 3 Glucose Ql (U) Negative Neg mg/dL [facility] Protein.monoclonal (U) [Mass/Vol] Negative Neg mg/dL [facility] OBSTETRIC ULTRASOUND WHIon 0 03-19-2023 [facility] URINE OB DIP B/Oon 3 Glucose Ql (U) Negative Neg mg/dL [facility] Protein.monoclonal (U) [Mass/Vol] Negative Neg mg/dL [facility] [id number] PLUSon 01-25-2023 Cell-free DNA./Cell-free DNA.total Dosage of chromosome-specific cfDNA (cfDNA) [Molar fraction] 6% Normal [facility] Comment on above: Order Comment: Speci men Type: BLOOD SPECIMEN [facility]ing [facility] Address: [address] [place] [address] Performed By: #### M AT21 #### [facility] CLIA [id number] [facility] [place] [address] Chr 13+18+21+X+Y aneuploidy Dosage of chromosome-specific cfDNA Ql (cfDNA) Negative Normal [facility] Comment on above: Order Comment: Speci men Type: BLOOD SPECIMEN Ordering [facility]: [facility] Address: [address] [place] [address] Performed By: #### M AT21 #### [facility] CLIA [id number] [address] [place] [address] Chr 21 trisomy Dosage of chromosome-specific cfDNA Ql (cfDNA) Negative Normal [facility] Comment on above: Order Comment: Speci men Type: BLOOD SPECIMEN [facility]ing [facility] Address: [address] [place] [address] Performed By: #### M AT21 #### [facility] CLIA [id number] [address] [place] [address] Chr X and Y aneuploidy risk Sequencing Ql (cfDNA) [Interp] Not detected [facility] Comment on above: Order Comment: Speci men Type: BLOOD SPECIMEN [facility] Address: [address] [place] [address] Result Comment: Not Detected Not Detected Performed By: #### M AT21 #### [facility] CLIA [id number] [address] [place] [address] Citation Andrew (Reference lab test) Comment Normal [facility] Comment on above: Order Comment: Speci men Type: BLOOD SPECIMEN [facility] Address: [address] [place] [address] Result Comment: 1. P lazaro KELLER et al. Ana Med. 2012;14(3):296-305. 2. Cherelle MAGANA, et al. Prenat Diag. 2013;33(6):591-597. 3. Mohit C, et al. Clin Chem. 2015 Apr;61(4):608-616. 4. Jax KELLER, et al. Ana Med. 2011;13(11):913-920. 5. ACOG/SMFM Practice Bulletin No. 226, Jul 2020. Performed By: #### M AT21 #### [facility] CLIA [id number] [address] [place] [address] Gestational age Estimated from conception date Senior Normal [facility] Comment on above: Order Comment: Speci men Type: BLOOD SPECIMEN [facility] Address: [address] [place] [place] [address] Performed By: #### M AT21 #### [facility] CLIA [id number] [address] [place] [place] [id number] GESTATIONALAGE AGE > OR = 9W Yes [facility] Comment on above: Order Comment: Speci men Type: BLOOD SPECIMEN [facility] Address: [address] [place] [place] [address] Performed By: #### M AT21 #### [facility] CLIA [id number] [address] [place] [address] Laboratory comment Andrew (Report) Comment [facility] Comment on above: Order Comment: Wiley escobedo Type: BLOOD SPECIMEN Ordering Facility: [facility] Address: [address] [place] [address] Result Comment: The MaterniT(R) 21 PLUS laboratory-developed test (LDT) analyzes circulating cell-free DNA from a maternal blood sample. This test is used for screening purposes and not diagnostic. Clinical correlation is recommended. Validation data on twin pregnancies is limited and the ability of this test to detect aneuploidy in higher multiple gestations has not yet been validated. Performed By: #### M AT21 #### [facility] CLIA [id number] [address] [place] [id number] director of investigations name Nom (Provider) Comment [facility] Comment on above: Order Comment: Wiley escobedo Type: BLOOD SPECIMEN Order[facility] Address: [address] [place] [address] Result Comment: This specimen showed an expected representation of chromosome 21, 18 and 13 material. Clinical correlation is suggested. Comment Jorge Bhatti MD, PhD, Director, [employer] Performed By: #### M AT21 #### [facility] CLIA [id number] [address] [place] [address] LIMITATIONS OF THE TEST Comment [facility] Comment on above: Order Comment: Wiley escobedo Type: BLOOD SPECIMEN [facility] Address: [address] [place] [address] Result Comment: Jeffry vanessa the results of [...] Fragmin(R)). Performed By: #### M AT21 #### [facility] CLIA [id number] [address] [place] [address] Monosomy X risk Dosage of chromosome-specific cfDNA Ql (Plasma cell-free+WBC DNA) [Interp] Not detected Normal [facility] Comment on above: Order Comment: Wiley escobedo Type: BLOOD SPECIMEN [facility]ing Facility: [facility] Address: [place] [address] Performed By: #### M AT21 #### [facility] CLIA [id number] [address] [place] [address] NEGATIVE PREDICTIVE VALUE Note Normal [facility] Comment on above: Order Comment: Speci men Type: BLOOD SPECIMEN Order[facility] Address: [address] [place] [id number] Result Comment: The Negative Predictive Value (NPV) for trisomy 21, 18, and 13 is greater than 99%. The NPV for SCA and ESS cannot be calculated as SCA and ESS are only reported when an abnormality is detected. Performed By: #### M AT21 #### [facility] CLIA [id number] [address] [place] [address] NOTE Comment Normal [facility] Comment on above: Order Comment: [facility] Type: BLOOD SPECIMEN [facility] Address: [address] [id number] Result Comment: See Notes [employer] is a subsidiary of [employer], using the brand [employer]. This test was developed and its performance characteristics determined by [employer]. It has not been cleared or approved by the Food and Drug Administration. This laboratory is certified under the Clinical Laboratory Improvement Amendments (CLIA) as qualified to perform high complexity clinical laboratory testing and accredited by the College of [place] [employer] (CAP). If there is future clinical need for adding MaterniT GENOME testing, this specimen will be available until term. [facility] samples will not be retained beyond 60 days. [facility] patients will have to send a new sample for re-sequencing ([facility] Test Code: [id number]). Performed By: #### M AT21 #### [facility] CLIA [id number] [address] [place] [address] PERFORMANCE CHARACTERISTICS Note [facility] Comment on above: Order Comment: [facility] Type: BLOOD SPECIMEN [facility] Address: [address] [place] [address] Result Comment: ! Sex ! Accuracy: 99.4% [...] ! ! ! * As reported in [facility] database nstd37 [https://www.ncbi.nlm.nih.gov/dbvar/studies/nstd37/ ] # Estimated [...] only. Performed By: #### M AT21 #### [facility] CLIA [id number] [address] [place] [address] POSITIVE PREDICTIVE VALUE N/A [facility] Comment on above: Order Comment: Speci men Type: BLOOD SPECIMEN [facility] Address: [address] [place] [address] Performed By: #### M AT21 #### [facility] CLIA [id number] [address] [place] [address] Reference Lab Test Method Comment [facility] Comment on above: Order Comment: Speci men Type: BLOOD SPECIMEN [facility] Address: [address] [place] [address] Result Comment: See Notes Circulating cell-free DNA [...] 22. Performed By: #### M AT21 #### [facility] CLIA [id number] [address] [place] [address] Sex Dosage of chromosome-specific cfDNA Nom (cfDNA) Comment [facility] Comment on above: Order Comment: Speci men Type: BLOOD SPECIMEN [facility] Address: [address] [place] [address] Result Comment: Cons istent with Male Performed By: #### M AT21 #### [facility] CLIA [id number] [address] [place] [address] Test performance information Andrew (Unsp spec) Comment [facility] Comment on above: Order Comment: Wiley escobedo Type: BLOOD SPECIMEN [facility] Facility[facility] Address: [address] [place] [address] Result Comment: The performance characteristics of the MaterniT(R) 21 PLUS laboratory-developed test (LDT) have been determined in a clinical validation study with women at increased risk for chromosomal aneuploidy.[1-4] Performed By: #### M AT21 #### [facility] CLIA [id number] [address] [place] [address] Trisomy 13 risk Dosage of chromosome-specific cfDNA Ql (cfDNA) [Interp] Negative Normal [facility] Comment on above: Order Comment: Wiley escobedo Type: BLOOD SPECIMEN [facility] Address: [address] [place] [address] Performed By: #### M AT21 #### [facility] CLIA [id number] [address] [place] [address] Trisomy 18 risk Dosage of chromosome-specific cfDNA Ql (Plasma cell-free+WBC DNA) [Interp] Negative Normal [facility] Comment on above: Order Comment: Wiley escobedo Type: BLOOD SPECIMEN [facility] Address: [address] [place] [address] Performed By: #### M AT21 #### [facility] CLIA [id number] [address] [place] [address] URINE CULTUREon 12-26-2022 Bacteria identified Cx Nom (U) 50,000-<100,000 CFU/ml Normal urogenital kathy [facility] C. trachomatis+N. gonorrhoea e DNA TESS+probe Ql (U)on 12-25-2022 C. trachomatis DNA TESS+probe Ql (Unsp spec) Negative Negative for Chlamydia trachomatis by amplificaton [facility] N. gonorrhoeae DNA TESS+probe Ql (Unsp spec) Negative Negative for Neisseria gonorrhoeae by amplification [facility] CBC panel Auto (Bld)on 12-25 Erythrocyte distribution width (RBC) [Ratio] 12.0 % 11.5 - 15.0 % [facility] Hematocrit (Bld) [Volume fraction] 42.7 % 36.0 - 46.0 % [facility] Hemoglobin (Bld) [Mass/Vol] 14.6 g/dL 11.5 - 15.5 g/dL [facility] MCH (RBC) [Entitic mass] 29.5 pg 26.0 - 34.0 pg [facility] MCHC (RBC) [Mass/Vol] 34.2 g/dL 30.5 - 36.0 g/dL [facility] MCV (RBC) [Entitic vol] 86.3 fL 80.0 - 100.0 fL [facility] Nucleated RBC (Bld) [#/Vol] <0.01 k/uL [facility] Platelet mean volume (Bld) [Entitic vol] 11.1 fL 9.0 - 12.7 fL [facility] [facility] Platelets (Bld) [#/Vol] 226 10*3/uL 150 - 400 k/uL [facility] RBC (Bld) [#/Vol] 4.95 10*6/uL 3.90 - 5.20 m/uL [facility] WBC (Bld) [#/Vol] 8.70 10*3/uL 3.70 - 11.00 k/u L [facility] HEP B SURF AG [facility] 023 HBV surface Ag Ql (S) Negative Negative [facility] HEP C AB IA W/CONF [facility] HCV Ab Ql (S) Negative Negative [facility] HIV 1+2 Ab IA Qlon HIV 1 and 2 Ab IA.rapid Nom [facility] HIV 1+2 Ab+HIV1 p24 Ag IA Ql Non-Reactive Nonreactive [facility] HIV Interpretation [facility] [place] RUBELLA IGG ABon 12-25-2022 Rubella IgG, Qual Positive Positive [facility] Reagin and Treponema pallidu m IgG and IgM [Interp]on 12-25-2022 Syphilis Interpretation Cannot exclude recent Treponemal infection if specimen collected within 7-10 days after appearance of suspect lesions or 2-3 weeks after an exposure. Clinical correlation is required. [facility] T. pallidum IgG+IgM IA Ql (S) Non-Reactive Nonreactive [facility] TSH BLDon 12-25-2022 TSH Qn 0.951 m[IU]/L 0.510 - 4.300 mIU/L [facility] TYPE + SCREEN PRENATALon ABO B [facility] HIstorical Ab Scr Status Negative [facility] Rh Nom (Bld) Positive [facility] Type and Screen Expiration 12/28/2022 23:59 [facility] URINE OB DIP B/Oon Glucose Ql (U) Negative Neg mg/dL [facility] Protein.monoclonal (U) [Mass/Vol] Negative Neg mg/dL [facility] HCG QUAL UR B/Oon 11-30-2022 status Positive neg - pos [facility] Quality Check Yes [facility] CNPNon 11-10-2022 [facility] NATA PENALOZA ( ) 02 F [facility] Date Time Provider Department 11/10/22 WESLEY RODRÍGUEZ [facility] During your visit today, we recorded the following information about you: Wesley Rodríguez [facility] 11/10/2022 9:35 AM Signed I called [...] Encounter Status:Closed by WESLEY RODRÍGUEZ on 11/10/22 [facility] URINE CULTUREon 10-04-2022 Bacteria identified Cx Nom (U) >=100,000 CFU/ml Normal urogenital kathy [facility] BACTERIAL VAGINOSIS AMPLIFIC ATIONon 10-03-2022 Lactobacillus crispatus+gasseri+j ensenii + Gardnerella vaginalis + Atopobium vaginae rRNA TESS+probe Ql (Vag fld) Positive Abnormal Negative for bacterial vaginosis [facility] C. trachomatis+N. gonorrhoea e DNA TESS+probe Ql (Unsp spec)on 10-03-2022 C. trachomatis DNA TESS+probe Ql (Unsp spec) Negative Negative for Chlamydia trachomatis by amplificaton [facility] N. gonorrhoeae DNA TESS+probe Ql (Unsp spec) Negative Negative for Neisseria gonorrhoeae by amplification [facility] JOHN / TRICHOMONAS AMPLIF ICATIONon 10-03-2022 C. glabrata RNA TESS+probe Ql (Vag fld) Negative Negative for John glabrata [facility] John albicans, C. dubliniensis, C. parapsilosis, and C. tropicalis RNA TESS+probe Ql (Vag fld) Positive Abnormal Negative for John species [facility] T. vaginalis DNA TESS+probe Ql (Unsp spec) Negative Negative for Trichomonas vaginalis by amplification [facility] HCG QUAL UR B/Oon 10-02-2022 status Negative neg - [facility] Quality Check Yes [facility] UA DIP, URINE (POC)on 2021 BILIRUBIN UA (POCT) Negative Negative [facility] CLARITY UA (POCT) Clear [facility] COLOR UA (POCT) Dark yellow [facility] d [facility] GLUCOSE UA (POCT) Negative Negative mg/dL [facility] HEMOGLOBIN/BLOOD UA (POCT) Negative Negative [facility] KETONE UA (POCT) Negative Negative mg/dL [facility] LEUKOCYTES UA (POCT) Trace Abnormal Negative [facility] NITRITE UA (POCT) Negative Negative [facility] PH UA (POCT) 5.0 4.5 - 8.0 [facility] Protein Ql (U) Negative Negative mg/dL [facility] SPECIFIC GRAVITY UA (POCT) 1.025 1.005 - 1.030 [facility] UROBILINOGEN UA (POCT) 0.2 E.U./dL Normal E.U./dL [facility] HCG QUAL UR B/Oon 07-16-2022 status Negative neg - pos [facility] Quality Check Yes [facility] UA DIP, URINE (POC)on 2021 BILIRUBIN UA (POCT) Negative Negative [facility] CLARITY UA (POCT) [facility] COLOR UA (POCT) Other [facility] GLUCOSE UA (POCT) Negative Negative mg/dL [facility] HEMOGLOBIN/BLOOD UA (POCT) Negative Negative [facility] KETONE UA (POCT) Negative Negative mg/dL [facility] LEUKOCYTES UA (POCT) Negative Negative [facility] NITRITE UA (POCT) Negative Negative [facility] PH UA (POCT) 6.0 4.5 - 8.0 [facility] Protein Ql (U) Negative Negative mg/dL [facility] SPECIFIC GRAVITY UA (POCT) >=1.030 1.005 - 1.030 [facility] UROBILINOGEN UA (POCT) 0.2 E.U./dL Normal E.U./dL [facility] XR THORACIC GENERAL 3V AP/LA T/SWIMMERSon 07-03-2022 [facility] UA DIP, URINE (POC)on 2021 BILIRUBIN UA (POCT) Negative Negative [facility] CLARITY UA (POCT) Clear [facility] COLOR UA (POCT) Yellow [facility] GLUCOSE UA (POCT) Negative Negative mg/dL [facility] HEMOGLOBIN/BLOOD UA (POCT) Moderate Abnormal Negative [facility] KETONE UA (POCT) Trace Negative mg/dL [facility] LEUK[facility]A (POCT) Small Abnormal Negative [facility] NITRITE UA (POCT) Positive Abnormal Negative [facility] PH UA (POCT) 6.5 4.5 - 8.0 [facility] Protein Ql (U) 30 mg/dL Abnormal Negative mg/dL [facility] and [facility] SPECIFIC GRAVITY UA (POCT) 1.025 1.005 - 1.030 [facility] UROBILINOGEN UA (POCT) 1.0 E.U./dL Normal E.U./dL [facility] Vital Signs Date Time Vital Sign Value Performing Clinician Bereket reagan 07-11-2024 12:49-0400 Body mass index (BMI) [Ratio] 23.41 kg/m2 Linda Arlen SECTION HAND.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 Work Phone: [facility] 07-11-2024 12:49-0400 Body weight 61.87 kg Linda Arlen SECTION HAND.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 Work Phone: [facility] 07-11-2024 12:49-0400 Diastolic blood pressure 78 mm[Hg] Linda Arlen SECTION HAND.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 Work Phone: [facility] 07-11-2024 12:49-0400 Systolic blood pressure 126 mm[Hg] Linda Neponset SECTION HAND.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 Work Phone: [facility] 01-24-2024 15:29-0400 Body mass index (BMI) [Ratio] 22.52 kg/m2 Bharathi Estrada MD Work Phone: [facility] 01-24-2024 15:29-0400 Body weight 59.51 kg Bharathi Estrada MD Work Phone: [facility] 01-24-2024 15:29-0400 Diastolic blood pressure 70 mm[Hg] Bharathi Estrada MD Work Phone: [facility] 01-24-2024 15:29-0400 Systolic blood pressure 110 mm[Hg] Bharathi Estrada MD Work Phone: [facility] 11-23-2023 12:02-0500 Body temperature 97.81 [degF] Jeannine Vo SECTION HAND.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 Work Phone: [facility] 11-23-2023 12:02-0500 Diastolic blood pressure 79 mm[Hg] Jeannine Vo SECTION HAND.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 Work Phone: [facility] 11-23-2023 12:02-0500 Heart rate 69 /min Jeannine Vo SECTION HAND.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 Work Phone: [facility] 11-23-2023 12:02-0500 Systolic blood pressure 116 mm[Hg] Jeannine Vo SECTION HAND.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 Work Phone: [facility] 08-19-2023 10:33-0500 Body weight 65.3 kg Elysia Collier MD Work Phone: [facility] 08-19-2023 10:33-0500 Diastolic blood pressure 62 mm[Hg] Elysia Collier MD Work Phone: [facility] 08-19-2023 10:33-0500 Respiratory rate 18 /min Elysia Collier MD Work Phone: [facility] 08-19-2023 10:33-0500 Systolic blood pressure 128 mm[Hg] Elysia Collier MD Work Phone: [facility] 08-04-2023 16:00-0400 Diastolic blood pressure 78 mm[Hg] Nurse Gwendolyn Work Phone: [facility] 08-04-2023 16:00-0400 Systolic blood pressure 128 mm[Hg] Nurse Gwendolyn Work Phone: [facility] 07-23-2023 14:50-0400 Body weight 74.11 kg Remi Powell MD Work Phone: [facility] 07-23-2023 14:50-0400 Diastolic blood pressure 74 mm[Hg] Remi Powell MD Work Phone: [facility] 07-23-2023 14:50-0400 Respiratory rate 18 /min Remi Powell MD Work Phone: [facility] 07-23-2023 14:50-0400 Systolic blood pressure 130 mm[Hg] Remi Powell MD Work Phone: [facility] 07-16-2023 16:13-0400 Body weight 74.03 kg Remi Powell MD Work Phone: [facility] 07-16-2023 16:13-0400 Diastolic blood pressure 68 mm[Hg] Remi Powell MD Work Phone: [facility] 07-16-2023 16:13-0400 Systolic blood pressure 116 mm[Hg] Remi Powell MD Work Phone: [facility] 07-01-2023 15:33-0400 Body weight 74.03 kg Remi Powell MD Work Phone: [facility] 07-01-2023 15:33-0400 Diastolic blood pressure 64 mm[Hg] Remi Powell MD Work Phone: [facility] 07-01-2023 15:33-0400 Systolic blood pressure 102 mm[Hg] Remi Powell MD Work Phone: [facility] 06-25-2023 15:17-0400 Body weight 73.23 kg Elysia Collier MD Work Phone: [facility] 06-25-2023 15:17-0400 Diastolic blood pressure 80 mm[Hg] Elysia Collier MD Work Phone: [facility] 06-25-2023 15:17-0400 Respiratory rate 18 /min Elysia Collier MD Work Phone: [facility] 06-25-2023 15:17-0400 Systolic blood pressure 130 mm[Hg] Elysia Collier MD Work Phone: [facility] 05-26-2023 18:47-0400 Body temperature 98.29 [degF] Tonya Gerardo APRN.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 Work Phone: [facility] 05-26-2023 18:47-0400 Body weight 73.39 kg Tonya Gerardo SECTION HAND.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 Work Phone: [facility] 05-26-2023 18:47-0400 Diastolic blood pressure 76 mm[Hg] Tonya Gerardo SECTION HAND.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 Work Phone: [facility] 05-26-2023 18:47-0400 Heart rate 85 /min Tonya Gerardo SECTION HAND.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 Work Phone: [facility] 05-26-2023 18:47-0400 Respiratory rate 21 /min Tonya Gerardo SECTION HAND.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 Work Phone: [facility] 05-26-2023 18:47-0400 SaO2% (BldA) [Mass fraction] 97 % Tonya Gerardo SECTION HAND.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 Work Phone: [facility] 05-26-2023 18:47-0400 Systolic blood pressure 104 mm[Hg] Tonya Gerardo SECTION HAND.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 Work Phone: [facility] 05-21-2023 08:44-0400 Body weight 71.71 kg Remi Powell MD Work Phone: [facility] 05-21-2023 08:44-0400 Diastolic blood pressure 62 mm[Hg] Remi Powell MD Work Phone: [facility] 05-21-2023 08:44-0400 Systolic blood pressure 112 mm[Hg] Remi Powell MD Work Phone: [facility] 05-19-2023 14:54-0400 Body temperature 97.59 [degF] Jerri Saab SECTION HAND.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 Work Phone: [facility] 05-19-2023 14:54-0400 Diastolic blood pressure 82 mm[Hg] Jerri Kaiser SECTION HAND.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 Work Phone: [facility] 05-19-2023 14:54-0400 Heart rate 105 /min Jerri Saab SECTION HAND.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 Work Phone: [facility] 05-19-2023 14:54-0400 SaO2% (BldA) [Mass fraction] 98 % Jerri Saab SECTION HAND.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 Work Phone: [facility] 05-19-2023 14:54-0400 Systolic blood pressure 128 mm[Hg] Jerri Saab SECTION HAND.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 Work Phone: [facility] 04-20-2023 08:18-0400 Body weight 68.58 kg Orlando Burroughs MD Work Phone: [facility] 04-20-2023 08:18-0400 Diastolic blood pressure 60 mm[Hg] Orlando Burroughs MD Work Phone: [facility] 04-20-2023 08:18-0400 Systolic blood pressure 112 mm[Hg] Orlando Burroughs MD Work Phone: [facility] 01-29-2023 08:12-0400 Body weight 64.32 kg Remi Powell MD Work Phone: [facility] 01-29-2023 08:12-0400 Diastolic blood pressure 64 mm[Hg] Remi Powell MD Work Phone: [facility] 01-29-2023 08:12-0400 Systolic blood pressure 122 mm[Hg] Remi Powell MD Work Phone: [facility] 12-25-2022 09:36-0400 Body height 162.6 cm Remi Powell MD Work Phone: [facility] 12-25-2022 09:36-0400 Body weight 66.22 kg Remi Powell MD Work Phone: [facility] 12-25-2022 09:36-0400 Diastolic blood pressure 62 mm[Hg] Remi Powell MD Work Phone: [facility] 12-25-2022 09:36-0400 Systolic blood pressure 106 mm[Hg] Remi Powell MD Work Phone: [facility] 11-30-2022 12:09-0500 Body temperature 97.9 [degF] Maegan Ghanshyam PA-C Work Phone: [facility] 11-30-2022 12:09-0500 Diastolic blood pressure 84 mm[Hg] Maegan Noeibli PA-C Work Phone: [facility] 11-30-2022 12:09-0500 Heart rate 101 /min Maegan Noeibli PA-C Work Phone: [facility] 11-30-2022 12:09-0500 SaO2% (BldA) [Mass fraction] 98 % Maegan Ghanshyam PA-C Work Phone: [facility] 11-30-2022 12:09-0500 Systolic blood pressure 127 mm[Hg] Maegan Noeibli PA-C Work Phone: [facility] 10-02-2022 16:43-0500 Body temperature 98.01 [degF] Washington Pendlebury SECTION HAND.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 Work Phone: [facility] 10-02-2022 16:43-0500 Body weight 66.86 kg Washington Pendlebury SECTION HAND.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 Work Phone: [facility] 10-02-2022 16:43-0500 Diastolic blood pressure 82 mm[Hg] Washington Pendlebury SECTION HAND.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 Work Phone: [facility] 10-02-2022 16:43-0500 Heart rate 92 /min Washington Pendlebury SECTION HAND.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 Work Phone: [facility] 10-02-2022 16:43-0500 Respiratory rate 18 /min Washington Pendlebury SECTION HAND.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 Work Phone: [facility] 10-02-2022 16:43-0500 SaO2% (BldA) [Mass fraction] 97 % Washington Pendlebury SECTION HAND.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 Work Phone: [facility] 10-02-2022 16:43-0500 Systolic blood pressure 122 mm[Hg] Washington Pendlebury SECTION HAND.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 Work Phone: [facility] 07-17-2022 16:19-0400 Diastolic blood pressure 80 mm[Hg] Hellen Paez MD Work Phone: [facility] 07-17-2022 16:19-0400 Heart rate 80 /min Hellen Paez MD Work Phone: [facility] 07-17-2022 16:19-0400 Systolic blood pressure 130 mm[Hg] Hellen Paez MD Work Phone: [facility] 07-16-2022 15:54-0400 Body height 165.1 cm Elysia Reaper SECTION HAND.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 Work Phone: [facility] 07-16-2022 15:54-0400 Body weight 70.4 kg Elysia Reaper SECTION HAND.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 Work Phone: [facility] 07-16-2022 15:54-0400 Diastolic blood pressure 80 mm[Hg] Elysia Reaper SECTION HAND.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 Work Phone: [facility] 07-16-2022 15:54-0400 Systolic blood pressure 118 mm[Hg] Elysia Reaper SECTION HAND.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 Work Phone: [facility] 04-10-2022 18:09-0400 Body height 162.6 cm Luana Ball SECTION HAND.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 Work Phone: [facility] 04-10-2022 18:09-0400 Body mass index (BMI) [Percentile] Per age and sex 90.55 % Luana Ball SECTION HAND.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 Work Phone: [facility] 04-10-2022 18:09-0400 Body weight 74.39 kg Luana Ball SECTION HAND.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 Work Phone: [facility] 04-10-2022 18:09-0400 Diastolic blood pressure 88 mm[Hg] Luana Ball SECTION HAND.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 Work Phone: [facility] 04-10-2022 18:09-0400 Heart rate 89 /min Luana Ball SECTION HAND.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 Work Phone: [facility] 04-10-2022 18:09-0400 Respiratory rate 16 /min Luanachris Nevarez SECTION HAND.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 Work Phone: [facility] 04-10-2022 18:09-0400 SaO2% (BldA) [Mass fraction] 99 % Luana Ball SECTION HAND.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 Work Phone: [facility] 04-10-2022 18:09-0400 Systolic blood pressure 142 mm[Hg] Luana Nevarez SECTION HAND.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 Work Phone: [facility] 03-31-2022 16:00-0400 Body height 162.5 cm Angela Ray MD Work Phone: [facility] 03-31-2022 16:00-0400 Body mass index (BMI) [Percentile] Per age and sex 92.5 % Angela Ray MD Work Phone: [facility] 03-31-2022 16:00-0400 Body weight 77.07 kg Angela Ray MD Work Phone: [facility] 03-31-2022 16:00-0400 Diastolic blood pressure 88 mm[Hg] Angela Ray MD Work Phone: [facility] 03-31-2022 16:00-0400 Heart rate 89 /min Angela Ray MD Work Phone: [facility] 03-31-2022 16:00-0400 Systolic blood pressure 140 mm[Hg] Angela Ray MD Work Phone: [facility] 03-04-2022 17:56-0400 Body mass index (BMI) [Percentile] Per age and sex 91.93 % Louann Garcia PA-C Work Phone: [facility] 03-04-2022 17:56-0400 Body temperature 98.4 [degF] Louann Garcia PA-C Work Phone: [facility] 03-04-2022 17:56-0400 Body weight 78.52 kg Louann Wormald PA-C Work Phone: [facility] 03-04-2022 17:56-0400 Diastolic blood pressure 75 mm[Hg] Louann Wormald PA-C Work Phone: [facility] 03-04-2022 17:56-0400 Heart rate 83 /min Louann Wormald PA-C Work Phone: [facility] 03-04-2022 17:56-0400 Respiratory rate 12 /min Louann Wormald PA-C Work Phone: [facility] 03-04-2022 17:56-0400 SaO2% (BldA) [Mass fraction] 100 % Louann Wormald PA-C Work Phone: [facility] 03-04-2022 17:56-0400 Systolic blood pressure 128 mm[Hg] Louann Wormald PA-C Work Phone: [facility] Encounters Encounter Date Encounter Type Care Provider Facility Start: 07-31-2025 ambulatory Rosie Stinson Facility :[facility] Start: 07-16-2025 ambulatory Efewongbe Oleghe Facili ty:[facility] Start: 07-16-2025 End: 07-16-2025 ambulatory Rosie Stinson Facility:[facility] Start: 07-03-2025 End: 07-03-2025 ambulatory Efewongbe Oleghe Facility:[facility] Start: 06-29-2025 ambulatory Rosie Stinson Facility :[facility] Start: 06-27-2025 ambulatory Efewongbe Oleghe Facili ty:[facility] Start: 06-26-2025 End: 06-26-2025 ambulatory Efewongbe Oleghe Facility:[facility] Start: 06-26-2025 End: 06-26-2025 ambulatory Rosie Stinson Facility:[facility] Start: 06-21-2025 End: 06-21-2025 ambulatory Rosie Stinson Facility:[facility] Start: 06-19-2025 ambulatory Sharmin Hernandez Facility :[facility] Start: 06-19-2025 ambulatory Rosie Stinson Facility :[facility] Start: 06-18-2025 End: 06-18-2025 ambulatory Efewongbe Lawghe Facility:[facility] Start: 06-13-2025 End: 06-13-2025 ambulatory Efewongbe Oleghe Facility:[facility] Start: 06-11-2025 End: 06-11-2025 ambulatory Sharmin Hernandez Facility:[facility] Start: 06-08-2025 End: 06-08-2025 ambulatory Efewongbe Oleghe Facility:[facility] Start: 05-21-2025 End: 05-21-2025 ambulatory Jesus Dickey Facility:[facility] Start: 05-18-2025 ambulatory Efewongbe Oleghe Facili ty:[facility] Start: 05-18-2025 End: 05-18-2025 ambulatory Efewongbe Oleghe Facility:[facility] Start: 05-11-2025 End: 05-11-2025 ambulatory Efewongbe Oleghe Facility:[facility] Start: 05-10-2025 End: 05-10-2025 ambulatory Efewongbe Oleghe Facility:[facility] Start: 05-08-2025 End: 05-09-2025 ambulatory Efewongbe Oleghe Facility:[facility] Start: 05-07-2025 End: 05-07-2025 ambulatory Tonya Ungishaanr Facility:[facility] Start: 05-02-2025 End: 05-02-2025 ambulatory Sharmin Hernandez Facility:[facility] Start: 04-30-2025 End: 04-30-2025 ambulatory Efewongbe Oleseane Facility:[facility] Start: 04-27-2025 End: 04-27-2025 ambulatory Efewongbe Oleghe Facility:[facility] Start: 04-25-2025 End: 04-25-2025 ambulatory Rosie tSinson Facility:[facility] Start: 04-23-2025 End: 04-23-2025 ambulatory Jesus Dickey Facility:[facility] Start: 04-12-2025 End: 04-12-2025 ambulatory Tonya Ungerer Facility:[facility] Start: 04-03-2025 End: 04-03-2025 ambulatory Elizabeth Dang Facility:[facility] Start: 03-26-2025 End: 03-26-2025 ambulatory Elizabeth Dang Facility:[facility] Start: 03-23-2025 End: 03-23-2025 ambulatory Rosie Stinson Facility:[facility] Start: 02-21-2025 End: 02-21-2025 ambulatory Jesus LLANES Facility:[facility] Start: 02-20-2025 End: 02-20-2025 ambulatory Jesus LLANES Facility:[facility] Start: 02-12-2025 End: 02-12-2025 ambulatory Matilde Castillo Facility:[facility] Start: 02-06-2025 End: 02-06-2025 ambulatory Rosie Stinson Facility:[facility] Start: 02-06-2025 End: 02-06-2025 ambulatory Rosie Stinson Facility:[facility] Start: 02-02-2025 End: 02-02-2025 [facility] Start: 01-22-2025 ambulatory Vani Dossi [facility] Start: 01-04-2025 End: 01-04-2025 ambulatory Sharmin Hernandez Facility:[facility] Start: 01-04-2025 End: 01-04-2025 ambulatory Sharmin Hernandez Facility:[facility] Start: 12-18-2024 ambulatory Vani Dossi [facility] Start: 12-12-2024 End: 12-12-2024 ambulatory [facility] Start: 11-27-2024 End: 11-27-2024 ambulatory Vani Dossi [facility] Start: 11-13-2024 ambulatory Vani Dossi [facility] Start: 10-30-2024 End: 10-30-2024 ambulatory Vani Dossi [facility] Start: 10-25-2024 End: 10-25-2024 [facility] Start: 10-23-2024 ambulatory Vani Dossi [facility] Start: 10-09-2024 End: 10-09-2024 ambulatory Vani Dossi Facility:[facility] Start: 09-15-2024 Encounter for gynecological examination (general) (routine) without abnormal findings Rosie Stinson [facility] Start: 09-15-2024 End: 09-15-2024 ambulatory Rosie Stinson Facility[facility] Start: 09-15-2024 End: 09-15-2024 ambulatory Rosie Stinson Facility:[facility] Start: 09-11-2024 End: 09-11-2024 ambulatory Vani Cm Facility:[facility] Start: 08-28-2024 End: 08-28-2024 ambulatory No Primary Care Physician Facility:[facility] Start: 07-12-2024 End: 07-12-2024 Orders Only Bharathi Estrada MD Work Phone: OB/Gynecology Comment on above: Ovarian cyst, right (Primary Dx) Start: 07-11-2024 End: 07-11-2024 ambulatory HELLEN PAEZ OB/Gynecology Start: 07-11-2024 End: 07-11-2024 Patient encounter procedure Linda Márquez SECTION 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.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 Work Phone: OB/Gynecology Comment on above: Surveillance of prev iously prescribed intrauterine contraceptive device (Primary Dx) Start: 01-24-2024 End: 01-24-2024 Patient encounter procedure Bharathi Estrada MD Work Phone: OB/Gynecology Comment on above: Pelvic pain in femal e (Primary Dx); IUD check up; Abnormal uterine bleeding (AUB) Start: 11-23-2023 End: 11-23-2023 Patient encounter procedure Jeannine Merrill SECTION HAND.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 Work Phone: [facility] Comment on [...] 08-04-2023 End: 08-04-2023 Patient encounter procedure Nurse Assistant [employer] Delivery [facility] Work Phone: Obstetrics/Gynecology Comment on above: BP check (Primary Dx ) Start: 08-04-2023 End: 08-04-2023 Patient encounter status Nurse Gwendolyn Work Phone: [facility] Start: 08-04-2023 ambulatory Elysia woodruff MD Work Phone: Obstetrics/Gynecology Comment on above: Blood pressure Start: 07-29-2023 Telephone encounter Delaney Ney Snowden APRN.CNM Work Phone: [facility] Obstetrics & Gynecology Comment on above: Appointment (Needs o ne week bp check for GHTN) Start: 07-27-2023 End: 07-30-2023 Evaluation and management of inpatient HELLEN PAEZ Facility:[facility] Start: 07-26-2023 End: 07-26-2023 ambulatory [facility] Facility:[facility] Start: 07-26-2023 Telephone encounter Darren Rodríguez MD Work Phone: Obstetrics/Gynecology Start: 07-23-2023 End: 07-23-2023 Patient encounter procedure Remi Powell MD Work Phone: Obstetrics/Gynecology Comment on above: Encounter for superv ision of normal in third trimester, unspecified (Primary Dx) Start: 07-23-2023 End: 07-24-2023 ambulatory Georgiana Kasper [facility] Comment on above: Population Health Na vigation [...] End: 05-26-2023 Patient encounter procedure Tonya Gerardo APRN.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 Work Phone: [facility] Comment on above: Pharyngitis, unspeci fied etiology (Primary Dx) Start: 05-21-2023 End: 05-21-2023 Patient encounter procedure Remi Powell MD Work Phone: Obstetrics/Gynecology Comment on above: Encounter for superv ision of normal first in third trimester (Primary Dx) Start: 05-19-2023 End: 05-19-2023 Patient encounter procedure Jerri Saab APRN.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 Work Phone: [facility] Comment on above: Sore throat (Primary Dx); Suspected COVID-19 virus infection Start: 04-20-2023 End: 04-20-2023 Patient encounter procedure Orlando Burroughs MD Work Phone: Obstetrics/Gynecology Comment on above: Encounter for superv ision of normal first in second trimester (Primary Dx); 24 weeks gestation of Start: 03-19-2023 End: 03-19-2023 Patient encounter procedure Assistant [employer] Of Content [employer] Delivery [facility] Work Phone: Maternal Medicine Comment on above: Encounter for anatomic survey (Primary Dx); Encounter for screening of mother Start: 02-09-2023 ambulatory Omar Calabrese Work Phone: Internal Medicine [facility] Comment on above: Positive testing Start: 02-09-2023 E-mail encounter fro m caregiver Omar Velarde PA-C Work Phone: [facility] Start: 02-01-2023 Telephone encounter Brie vaz MD Work Phone: Maternal Medicine Comment on above: Results (NIPT ) Start: 01-29-2023 End: 01-29-2023 Patient encounter procedure Remi Powell MD Work Phone: Obstetrics/Gynecology Comment on above: Encounter for superv ision of normal first in first trimester (Primary Dx); IUD migration, initial encounter Start: 01-25-2023 End: 01-26-2023 ambulatory Brie EVANS Facility:[facility] Start: 01-05-2023 ambulatory Brett colon PA-C Work Phone: [facility] Comment on above: Vaginal culture resu lts/treatment - January 05, 2023 Urine culture - Apri 2022 Start: 01-05-2023 E-mail encounter libra m caregiver Brett Mejía PA-C Work Phone: [facility] Start: 12-25-2022 End: 12-25-2022 Patient encounter [...] Possible Start: 11-10-2022 Telephone encounter Wesley carlson [facility] Work Phone: Psychiatry Comment on above: Patient Update Start: 11-03-2022 End: 11-03-2022 Patient encounter procedure Rajni BEAL Work Phone: Psychology Comment on above: Bipolar II disorder (HCC) (Primary Dx); Post traumatic stress disorder (PTSD); Eating disorder, unspecified type Start: 10-03-2022 Telephone encounter Patricia Nuno APRN.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 Work Phone: [facility] Comment on above: Results Start: 10-02-2022 End: 10-02-2022 Office outpatient visit 25 minutes Washington Goss APRN.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 Work Phone: [facility] Comment on above: Urinary frequency (P rimary Dx); Vaginal discharge Start: 07-22-2022 End: 07-22-2022 Patient encounter procedure Wilver Montemayor DC Work Phone: Integrative Medicine Comment on above: Chronic bilateral th oracic back pain (Primary Dx) Start: 07-17-2022 End: 07-18-2022 Office outpatient visit 25 minutes Hellen Paez MD Work Phone: Internal Medicine [facility] Comment on above: Primary insomnia (Pr imary Dx); Cyclothymia; Recurrent syncope; Chronic maxillary sinusitis; Encounter for immunization Start: 07-16-2022 End: 07-16-2022 Patient encounter procedure Elysia Campbell APRN.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 Work Phone: Gynecology Comment on above: Urinary [...] fro m caregiver Renea BEAL Work Phone: [facility] Start: 04-14-2022 End: 04-14-2022 Patient encounter procedure Carmen Ramirez MD Work Phone: Otolaryngology Comment on above: Allergic rhinitis, u nspecified seasonality, unspecified trigger (Primary Dx); Dysfunction of both eustachian tubes Start: 04-13-2022 ambulatory Roxie Thorne RN INDP GINGER PADRON Start: 04-13-2022 Follow-up encounter Roxie Thorne RN Leveling Machine Operator Management Comment on above: Transition Of Care ( [facility] - Hospital D/C Follow up - Initial Outreach) Start: 04-10-2022 End: 04-10-2022 Patient encounter procedure Luana Nevarez APRN.CNP Work Phone: [employer] [facility] Comment on above: Procedure not dax d out (Primary Dx) Start: 04-08-2022 End: 04-08-2022 Emergency department patient visit Maxine Dewitt BRITTANY.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 Work Phone: Gynecology Comment on above: Emergency contracept ion (Primary Dx); Encounter for initial prescription of contraceptive pills; Decreased appetite; History of recent stressful life event Start: 04-08-2022 End: 04-08-2022 Telemedicine consultation with patient Maxine Dewitt BRITTANY.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 Work Phone: [facility] Start: 03-31-2022 End: 04-01-2022 Initial preventive medicine new pt age 18-39yrs Angela Ray MD Work Phone: Internal Medicine [facility] Comment on above: Wellness examination (Primary Dx); Chronic maxillary sinusitis; Maxillary micrognathia; Velopharyngeal insufficiency, congenital; Cleft palate, unspecified; Chronic midline 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 sciatica; Vasovagal syncope Start: 03-31-2022 End: 04-01-2022 Patient encounter status Angela Ray MD Work Phone: Internal [facility] Start: 03-04-2022 End: 03-04-2022 Patient encounter procedure Louann Garcia PA-C Work Phone: [employer] [facility] Comment on above: Leukocytes in urine (Primary Dx); Dysuria; Urinary frequency Start: 03-04-2022 ambulatory Romario briones PA-C Work Phone: Telemedicine Comment on above: Treatment not availa ble (Primary Dx) Uti & refill Start: 02-03-2022 Phys/qhp online evaluation & management service Maegan Stinson APRN.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 Work Phone: Telemedicine Comment on above: Treatment not availa ble (Primary Dx) Procedures Date Procedure Procedure Detail Performing Clinician Start: 07-11-2024 Us pelvic nonobstetr ic real-time image complete Bharathi Estrada MD Work Phone: Start: 11-23-2023 Urnls dip stick/tabl et rgnt auto w/o microscopy Jeannine Merrill SECTION HAND.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 Work Phone: Start: 07-27-2023 Antibody screen HELLEN PAEZ Comment on above: Order Comment: Speci men Type: BLOOD SPECIMENOrdering Facility: [facility] Address: [address] [place] [address] Performed By: #### T SPN ####[facility] BLOOD BANKCLIA [id number] [place] [address] [place] Start: 07-23-2023 URINE [...] Start: 06-25-2023 URINE OB DIP B/O Elysia Collire MD Work Phone: Start: 05-26-2023 STREP A MOLECULAR (POC) Jesika Stearns PA-C Work Phone: Start: 05-21-2023 URINE OB DIP B/O Rosana Powell MD Work Phone: Start: 05-19-2023 STREP A MOLECULAR (POC) Jerri Saab APRN.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 Work Phone: Start: 05-19-2023 COVID & INFLUENZA A/ B & RSV NAAT, ROUTINE Jerri Saab APRN.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 Work Phone: Start: 05-19-2023 Iadna respiratry pro be & rev trnscr 3-5 targets Jerri Saab APRN.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 Work Phone: Start: 05-19-2023 Sars-cov-2 detection by dna/rna Jerri Saab SECTION HAND.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 Work Phone: Start: 04-20-2023 URINE OB DIP [...] Start: 10-02-2022 BACTERIAL VAGINOSIS AMPLIFICATION Washington Goss SECTION HAND.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 Work Phone: Start: 10-02-2022 End: 10-02-2022 Iadna chlamydia trachomatis amplified probe tq Washington Cantuchristophe SECTION HAND.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 Work Phone: Start: 10-02-2022 Culture bacterial quanttative colony count urine Washington Goss SECTION HAND.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 Work Phone: Start: 10-02-2022 End: 10-02-2022 Urnls dip stick/tablet rgnt auto w/o microscopy Sylwia Ortiz SECTION HAND.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 Work Phone: Start: 07-17-2022 INFLUENZA VACCINE QUADRIVALENT 6 MO - 64 YRS IM Hellen Paez MD Work Phone: Start: 07-16-2022 End: 07-16-2022 Urnls dip stick/tablet rgnt auto w/o microscopy Elysia Campbell SECTION HAND.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 Work Phone: Start: 07-03-2022 Radex spine thoracic 3 views Wilver Montemayor DC Work Phone: Start: 03-31-2022 Adult depression scr eening assessment Angela Ray MD Work Phone: Start: 03-04-2022 Urnls dip stick/tabl et rgnt auto w/o microscopy [facility] Provider Plan of Treatment Date Care Activity Detail Author Start: 05-21-2033 Urine microalbumin profile [facility] Start: 09-14-2026 Screening for malign ant neoplasm of cervix [facility] Start: 05-15-2025 Urine microalbumin profile DTAP,TDAP,TD (7 - Td or Tdap) [facility] Start: 10-13-2024 End: 10-13-2024 Patient encounter procedure 10/13/2024 11:00 AM EST Office Visit Obstetrics/Gynecology [address] [address] Elysia Collier MD [address] [place] [address] ANNUAL EXAM Obstetrics/Gynecolog y Comment on above: ANNUAL EXAM Start: 10-02-2024 End: 10-02-2024 Patient encounter procedure Obstetrics/Gynecolog y Comment on above: ANNUAL EXAM Start: 07-12-2024 End: 10-09-2025 US Pelvis PELVIC US [facility] Anc Imaging Routine Ovarian cyst, right Expected: 07/12/2024, Expires: 07/12/2025 [facility] Work Phone: Comment on above: Expected: 07/12/2024 , Expires: 07/12/2025 Start: 06-04-2024 Covid-19 Vaccine () Covid-19 Vaccine () [facility] Start: 06-04-2024 Influenza vaccination Influenza Vacc ine (#1) [facility] Start: 02-24-2024 End: 02-24-2024 Patient encounter procedure 02/24/2024 3:40 PM EDT Office Visit OB/Gynecology [address] [place], [place] [id number] Minoo Arzate MD [address] [place] [address] Pelvic US/IUD follow up OB/Gynecology Comment on above: Pelvic US/IUD follow up Start: 02-24-2024 End: 02-24-2024 Manual pelvic examination 02/24/2024 3:00 PM EDT Procedure OB/Gynecology [address] [place] [id number] Pelvic pain in female [R10.2] OB/Gynecology Comment on above: Pelvic pain in femal e [R10.2] Start: 01-24-2024 End: 01-23-2025 US Pelvis PELVIC US [facility] Anc Imaging Routine Pelvic pain in female Expected: 01/24/2024, Expires: 01/23/2025 [facility] Work Phone: Comment on above: Expected: 01/24/2024 , Expires: 01/23/2025 Start: 12-26-2023 CHLAMYDIA SCREENING (18-24) CHLAMYDIA SCREENING (18-24) [facility] Start: 12-26-2023 GC (GONORRHEA) SCREE TACOS (18-24) GC (GONORRHEA) SCREENING (18-24) [facility] Start: 12-26-2023 Screening for Chlamy rickey trachomatis Chlamydia Screening (18-) [facility] Start: 10-04-2023 Behavioral Health Screening Behavioral Health Screening [facility] Start: 10-04-2023 Depression Assessment Depression Ass essment [facility] Start: 10-02-2023 CHLAMYDIA SCREENING (18-24) CHLAMYDIA SCREENING (18-24) [facility] Start: 10-02-2023 GC (GONORRHEA) SCREE TACOS (18-24) GC (GONORRHEA) SCREENING (18-24) [facility] Start: 07-23-2023 End: 10-22-2023 Protein/Creatinine [Mass Ratio] in Urine [facility] Work Phone: Comment on above: Expected: 07/23/2023 , Expires: 10/22/2023 Start: 07-17-2023 COVID-19 VACCINE (3 - Booster for Pfizer series) COVID-19 VACCINE (3 - Booster for Pfizer series) [facility] Comment on above: Postponed from 10/17 (Declined at this time) Start: 07-17-2023 COVID-19 VACCINE (3 - Pfizer series) COVID-19 VACCINE (3 - Pfizer series) [facility] Comment on above: Postponed from 10/17 (Declined at this time) Start: 07-17-2023 HEPATITIS C SCREENING HEPATITIS C SC [facility] Comment on above: Postponed from 12/06 (Declined at this time) Start: 07-17-2023 HIV SCREENING HIV SCREENING [facility] Comment on above: Postponed from 12/06 (Declined at this time) Start: 07-17-2023 Meningococcal B Vacc ine: Consider Based On Risk (1 of 2 - Patient Seeks Protection) Meningococcal B Vaccine: Consider Based On Risk (1 of 2 - Patient Seeks Protection) [facility] Comment on above: Postponed from 12/06 (Declined at this time) Start: 07-17-2023 MENINGOCOCCAL B: Consider based on risk (1 of 2 - Patient Seeks Protection) MENINGOCOCCAL B: Consider based on risk (1 of 2 - Patient Seeks Protection) [facility] Comment on above: Postponed from 12/06 (Declined at this time) Start: 07-17-2023 MENINGOCOCCAL B: Consider based on risk (1 of 2 - Risk Bexsero 2-dose series) MENINGOCOCCAL B: Consider based on risk (1 of 2 - Risk Bexsero 2-dose series) [facility] Comment on above: Postponed from 12/06 (Declined at this time) Start: 07-16-2023 CHLAMYDIA SCREENING () CHLAMYDIA SCREENING () [facility] Start: 07-16-2023 GC (GONORRHEA) SCREE TACOS () GC (GONORRHEA) SCREENING () [facility] Start: 06-04-2023 Covid-19 Vaccine ( season) Covid-19 Vaccine ( season) [facility] Start: 06-04-2023 Influenza vaccination INFLUENZA (#1) [facility] Start: 05-21-2023 End: 07-21-2023 CBC W Auto Differential panel - Blood CBC + DIFF Lab Routine Encounter for supervision of normal first in third trimester Expected: 05/21/2023, Expires: 07/21/2023 [facility] Work Phone: Comment on above: Expected: 05/21/2023 , Expires: 07/21/2023 Start: 04-20-2023 End: 06-20-2023 GEST GLUC SCREEN, 1-HR, 50 GM, NON-FASTING [facility] Work Phone: Comment on above: Expected: 04/20/2023 , Expires: 06/20/2023 Start: 03-31-2023 Adult depression screening assessment DEPRESSION SCREENING [facility] Start: 12-25-2022 End: 12-26-2023 NUCHAL TRANSLUCENCY WHI NUCHAL TRANSLUCENCY [facility]I Anc Imaging Routine Encounter for supervision of normal first in first trimester Expected: 12/25/2022, Expires: 12/26/2023 [facility] Work Phone: Comment on above: Expected: 12/25/2022 , Expires: 12/26/2023 Start: 10-04-2022 DEPRESSION ASSESSMENT DEPRESSION ASS ESSMENT [facility] Start: 06-04-2022 Influenza vaccination INFLUENZA (#1) [facility] Start: 01-20-2022 COVID-19 VACCINE (3 - Booster for Pfizer series) COVID-19 VACCINE (3 - Booster for Pfizer series) [facility] Start: 10-17-2021 COVID-19 VACCINE (3 - Booster for Pfizer series) COVID-19 VACCINE (3 - Booster for Pfizer series) [facility] Start: 10-04-2021 DEPRESSION ASSESSMENT DEPRESSION ASS ESSMENT [facility] Start: 2020 Anxiety Screening Anxiety Screening [facility] Start: 2020 CHLAMYDIA SCREENING (18-24) CHLAMYDIA SCREENING (18-24) [facility] Start: 2020 Depression Screening Depression Scre ening [facility] Start: 2020 GC (GONORRHEA) SCREE TACOS (18-24) GC (GONORRHEA) SCREENING (18-24) [facility] Start: 2020 HEPATITIS C SCREENING HEPATITIS C SC REENING [facility] Start: 2020 HIV SCREENING HIV SCREENING [facility] Start: 2018 Meningococcal B Vacc ine: Consider Based On Risk (1 of 2 - Patient Seeks Protection) Meningococcal B Vaccine: Consider Based On Risk (1 of 2 - Patient Seeks Protection) [facility] Start: 2016 PEDS TO ADULT TRANSI TION ANNUAL ASSESSMENT PEDS TO ADULT TRANSITION ANNUAL ASSESSMENT [facility] Start: 2014 Adult depression screening assessment DEPRESSION SCREENING [facility] Start: 2014 PEDS TO ADULT TRANSI TION INITIAL DISCUSSION PEDS TO ADULT TRANSITION INITIAL DISCUSSION [facility] Start: 2012 MENINGOCOCCAL B: Consider based on risk (1 of 2 - Risk Bexsero 2-dose series) MENINGOCOCCAL B: Consider based on risk (1 of 2 - Risk Bexsero 2-dose series) [facility] Bacteria identified in Urine by Culture URINE CULTURE Microbiology Routine Dysuria Ordered: 03/04/2022 [facility] Work Phone: Comment on above: Ordered: 03/04/2022 Bacteria identified in Urine by Culture URINE CULTURE Microbiology Routine UTI symptoms 11/23/2023 12:33 PM EST [facility] Work Phone: BACTERIAL VAGINOSIS AMPLIFICATION BACTERIAL VAGINOSIS AMPLIFICATION Lab Routine Vaginal discharge Vaginal odor 07/16/2022 4:38 PM EDT [facility] Work Phone: JOHN / TRICHOMONA S AMPLIFICATION JOHN / TRICHOMONAS AMPLIFICATION Microbiology Routine Vaginal discharge Vaginal odor 07/16/2022 4:38 PM EDT [facility] Work Phone: Chlamydia trachomatis+Neisseria gonorrhoeae DNA [Presence] in Unspecified specimen by TESS with probe detection GC/CHLAMYDIA DNA DET Lab Routine Vaginal discharge Vaginal odor 07/16/2022 4:38 PM EDT [facility] Work Phone: INDUCTION L&D INDUCTION L&D Procedures Routine Encounter for supervision of normal in third trimester, unspecified 1 Occurrences starting 07/23/2023 [facility] Work Phone: Comment on above: 1 Occurrences starti ng 07/23/2023 End: 06-17-2024 OXIMETRY AT REST OXIMETRY AT REST PFT Routine Sore throat 1 Occurrences starting 05/19/2023 until 06/17/2024 [facility] Work Phone: Comment on above: 1 Occurrences starti ng 05/19/2023 until 06/17/2024 PAP TEST PAP TEST Lab Ab hurley care and examination Cervical cancer screening Ordered: 09/14/2023 [facility] Work Phone: Comment on above: Ordered: 09/14/2023 POC GAME DEVELOPER ULTRASOUND POC GAME DEVELOPER ULTRASO UND Anc Imaging Routine Encounter for supervision of normal first in first trimester Ordered: 12/25/2022 [facility] Work Phone: Comment on above: Ordered: 12/25/2022 End: 07-31-2023 Radex spine thoracic 3 views XR THORACIC GENERAL 3V AP/LAT/SWIMMERS Radiology Routine Chronic bilateral thoracic back pain 1 Occurrences starting 07/01/2022 until 07/31/2023 [facility] Work Phone: Comment on above: 1 Occurrences starti ng 07/01/2022 until 07/31/2023 ROUTINE, GR OUP B STREP PCR ROUTINE, GROUP B STREP PCR Microbiology Routine Encounter for supervision of normal in third trimester, unspecified 07/16/2023 4:14 PM EDT [facility] Work Phone: UA DIP B/O UA DIP B/O Lab R outine Dysuria Ordered: 03/04/2022 [facility] Work Phone: Comment on above: Ordered: 03/04/2022 [facility] Immunizations Immunization Date Immunization Notes Care Provider Fa [facility] 06-25-2023 influenza, injectabl e, quadrivalent, contains preservative Elysia Collier MD Work Phone: [facility] 06-25-2023 influenza virus vacc ine, unspecified formulation Linda Márquez SECTION HAND.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 Work Phone: [facility] 05-21-2023 tetanus toxoid, redu garett diphtheria toxoid, and acellular pertussis vaccine, adsorbed Remi Powell MD Work Phone: [facility] 07-17-2022 influenza, injectabl e, quadrivalent, contains preservative Hellen Paez MD Work Phone: [facility] 08-22-2021 COVID-19 vaccine, ag e 12+ yr ([employer] - [facility]) Maegan Stinson SECTION HAND.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 Work Phone: [facility] 07-03-2021 influenza, injectabl e, quadrivalent, contains preservative Maegan Stinson APRN.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 Work Phone: [facility] Work Phone: 06-18-2020 meningococcal polysaccharide (groups A, C, Y and W-135) diphtheria toxoid conjugate vaccine (MCV4P) Maegan Stinson SECTION HAND.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 Work Phone: [facility] Work Phone: 06-16-2018 Human Papillomavirus 9-valent vaccine Maegan Stinson APRN.[facility] Work Phone: [facility] Work Phone: 06-14-2017 Human Papillomavirus 9-valent vaccine Maegan Stinson APRN.[facility] Work Phone: [facility] Work Phone: 05-15-2015 meningococcal oligosaccharide (groups A, C, Y and W-135) diphtheria toxoid conjugate vaccine (MCV4O) Maegan Stinson APRN.[facility] Work Phone: [facility] Work Phone: 05-15-2015 tetanus toxoid, redu garett diphtheria toxoid, and acellular pertussis vaccine, adsorbed Maegan Stinson APRN.[facility] Work Phone: [facility] Work Phone: 06-26-2014 influenza virus vacc ine, live, attenuated, for intranasal use Maegan Stinson APRN.[facility] Work Phone: [facility] Work Phone: 03-21-2012 hepatitis A vaccine, pediatric/adolescent dosage, 2 dose schedule Maegan Stinson APRN.[facility] Work Phone: [facility] Work Phone: 07-28-2011 influenza virus vacc ine, live, attenuated, for intranasal use Maegan Stinson APRN.[facility] Work Phone: [facility] Work Phone: 03-04-2011 hepatitis A vaccine, pediatric/adolescent dosage, 2 dose schedule Maegan Stinson APRN.[facility] Work Phone: [facility] Work Phone: 07-15-2010 influenza virus vacc ine, live, attenuated, for intranasal use Maegan Stinson APRN.[facility] Work Phone: [facility] Work Phone: 08-18-2008 influenza virus vacc ine, live, attenuated, for intranasal use Maegan Stinson APRN.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 Work Phone: [facility] Work Phone: 04-08-2007 diphtheria, tetanus toxoids and acellular pertussis vaccine, unspecified formulation Maegan Stinson APRN.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 Work Phone: [facility] Work Phone: 04-08-2007 measles, mumps and rubella virus vaccine Maegan Stinson APRN.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 Work Phone: [facility] Work Phone: 04-08-2007 poliovirus vaccine, unspecified formulation Maegan Stinson APRN.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 Work Phone: [facility] Work Phone: 04-08-2007 varicella virus vaccine Shannan Stinson APRN.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 Work Phone: [facility] Work Phone: 06-19-2004 poliovirus vaccine, unspecified formulation Maegan Stinson APRN.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 Work Phone: [facility] Work Phone: 04-03-2004 diphtheria, tetanus toxoids and acellular pertussis vaccine, unspecified formulation Maegan Stinson APRN.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 Work Phone: [facility] Work Phone: 04-03-2004 haemophilus influenz ae type b vaccine, conjugate unspecified formulation Maegan Stinson APRN.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 Work Phone: [facility] Work Phone: 01-25-2004 measles, mumps and rubella virus vaccine Maegan Stinson APRN.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 Work Phone: [facility] Work Phone: 01-25-2004 varicella virus vaccine Shannan Stinson APRN.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 Work Phone: [facility] Work Phone: 10-18-2003 hepatitis B vaccine, pediatric or pediatric/adolescent dosage Maegan Stinson APRN.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 Work Phone: [facility] Work Phone: 06-21-2003 diphtheria, tetanus toxoids and acellular pertussis vaccine, unspecified formulation Maegan Stinson APRN.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 Work Phone: [facility] Work Phone: 06-21-2003 haemophilus influenz ae type b vaccine, conjugate unspecified formulation Maegan Stinson APRN.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 Work Phone: [facility] Work Phone: 06-21-2003 pneumococcal conjuga te vaccine, 7 valent Maegan Stinson APRN.[facility] Work Phone: [facility] Work Phone: 04-09-2003 diphtheria, tetanus toxoids and acellular pertussis vaccine, unspecified formulation Maegan Stinson APRN.[facility] Work Phone: [facility] Work Phone: 04-09-2003 haemophilus influenz ae type b vaccine, conjugate unspecified formulation Maegan Stinson APRN.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 Work Phone: [facility] Work Phone: 04-09-2003 pneumococcal conjuga te vaccine, 7 valent Maegan Stinson APRN.[facility] Work Phone: [facility] Work Phone: 04-09-2003 poliovirus vaccine, inactivated Maegan Stinson APRN.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 Work Phone: [facility] Work Phone: 02-01-2003 diphtheria, tetanus toxoids and acellular pertussis vaccine, unspecified formulation Maegan Stinson APRN.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 Work Phone: [facility] Work Phone: 02-01-2003 haemophilus influenz ae type b conjugate and Hepatitis B vaccine Maegan Stnison APRN.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 Work Phone: [facility] Work Phone: 02-01-2003 pneumococcal conjuga te vaccine, 7 valent Maegan Milad SECTION HAND.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 Work Phone: [facility] Work Phone: 02-01-2003 poliovirus vaccine, inactivated Maegan Stinson SECTION HAND.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 Work Phone: [facility] Work Phone: 2002 hepatitis B vaccine, pediatric or pediatric/adolescent dosage Maegan Stinson SECTION HAND.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 Work Phone: [facility] Work Phone: Payers Date Payer Category Payer Unknown [id number] 2024 Self-pay 2022 Unknown [id number] 2022 Medicaid [id number] 2021 Private Health Insurance EHP AET NA EHP STAFF/NON STAFF / EHP [facility] [id number] 2021-Present [address] [place] [address] EPO [id number] 2021 Private Health Insurance [id number]. [id number] 2021 Medicaid [employer] [id number] 2021-Present [phone] [address] [place] [address] Medicaid [id number]. [id number] 2021 Medicaid [id number]. 1.13.159.2. [id number] 2002 Unknown [id number] 2.16.840.1.547420.3.579.2. 479 Unknown [id number] Unknown [id number] 2.16.840.1.878633.3.579.2. 462 Unknown [id number] 2.16.840.1.584923.3.579.2. 462 Unknown [id number] 2.16.840.1.995228.3.579.2. 462 Unknown [id number] 2.16.840.1.500612.3.579.2. 462 Unknown [id number] 2.16.840.1.730339.3.579.2. 462 Unknown [id number] 2.16.840.1.825278.3.579.2. 462 Unknown [id number] 2.16.840.1.727612.3.579.2. 462 Unknown [id number] 2.16.840.1.480606.3.579.2. 462 Unknown [id number] 2.16.840.1.105214.3.579.2. 462 Unknown [id number] 2.16.840.1.080898.3.579.2. 462 Unknown [id number] 2.16.840.1.329526.3.579.2. 462 Unknown [id number] 2.16840.1.970916.3.579.2. 462 Unknown [id number] 2.16.840.1.841708.3.579.2. 462 Unknown [id number] 2.16.840.1.377900.3.579.2. 462 Unknown [id number] 2.16840.1.686360.3.579.2. 462 Unknown [id number] 2.16.840.1.138932.3.579.2. 462 Unknown [id number] 2.16.840.1.470233.3.579.2. 462 Unknown [id number] 2.16.840.1.034294.3.579.2. 462 Unknown [id number] 2.16.840.1.765592.3.579.2. 462 Unknown [id number] 2.16.840.1.971100.3.579.2. 462 Unknown [id number] 2.16.840.1.325485.3.579.2. 462 Unknown [id number] 2.16.840.1.334688.3.579.2. 462 Unknown [id number] 2.16.840.1.849083.3.579.2. 462 Unknown [id number] 2.16.840.1.088419.3.579.2. 462 Unknown [id number] 2.16840.1.562959.3.579.2. 462 Unknown [id number] 2.840.1.638738.3.579.2. 462 Unknown [id number] 2.840.1.756994.3.579.2. 462 Unknown [id number] 2.840.1.210709.3.579.2. 462 Unknown [id number] 2.840.1.657495.3.579.2. 462 Unknown [id number] 2.840.1.204178.3.579.2. 462 Unknown [id number] 2.840.1.926114.3.579.2. 462 Unknown [id number] 2.840.1.053799.3.579.2. 462 Unknown [id number] 2.840.1.401690.3.579.2. 462 Unknown [id number] 2.840.1.996281.3.579.2. 462 Unknown [id number] 2.840.1.801198.3.579.2. 462 Unknown [id number] 2.840.1.505791.3.579.2. 462 Unknown [id number] 2.16840.1.293826.3.579.2. 462 Unknown [id number] 2.16840.1.536979.3.579.2. 462 Unknown [id number] 2.840.1.078160.3.579.2. 462 Unknown [id number] 2.16.840.1.231345.3.579.2. 462 Unknown [id number] 2.16.840.1.403180.3.579.2. 462 Unknown [id number] 2.16.840.1.949042.3.579.2. 462 Unknown [id number] 2.16.840.1.826751.3.579.2. 462 Unknown [id number] 2.16.840.1.945162.3.579.2. 462 Unknown [id number] 2.16.840.1.001419.3.579.2. 462 Unknown [id number] 2.16.840.1.158248.3.579.2. 462 Unknown [id number] 2.16.840.1.859966.3.579.2. 462 Unknown [id number] 2.16.840.1.197739.3.579.2. 462 Unknown [id number] 2.16.840.1.245204.3.579.2. 462 Unknown [id number] 2.16.840.1.535280.3.579.2. 462 Unknown [id number] 2.16.840.1.607322.3.579.2. 462 Unknown [id number] 2.16.840.1.757828.3.579.2. 462 Unknown [id number] 2.16.840.1.436235.3.579.2. 462 Unknown [id number] 2.16.840.1.547854.3.579.2. 462 Social History Date Type Detail Facility Start: 12-30-2021 End: 05-21-2023 Tobacco smoking status NHIS Never smoked tobacco [facility] Start: 12-30-2021 End: 05-21-2023 Tobacco use and exposure Smokeless tobacco non-user [facility] Start: 12-30-2021 End: 01-24-2024 Alcohol intake Ex-drinker (finding) [facility] Start: 2002 Sex Assigned At Female C [facility] Start: 02-22-2022 End: 07-22-2022 Exposure to SARS-CoV-2 (event) Not sure [facility] Start: 03-22-2022 End: 07-10-2022 History SDOH Alcohol Frequency 3 [facility] Start: 03-22-2022 History SDOH Alcohol Std Drinks 1 [facility] Start: 03-22-2022 End: 07-10-2022 History SDOH Social Connections Phone 2 [facility] Start: 03-22-2022 History SDOH Social Connections Living 98 [facility] Start: 03-22-2022 History SDOH Physica l Activity DPW 5 [facility] Start: 04-10-2022 End: 04-16-2022 Alcohol intake Current drinker of alcohol (finding) [facility] Start: 04-10-2022 History SDOH Alcohol Comment social [facility] Start: 11-13-2022 [facility] Start: 04-20-2023 End: 05-21-2023 History of Social function [facility] Start: 04-20-2023 End: 05-21-2023 Tobacco use panel [facility] Adult Depression Screening Assessment 4 [facility] At any time in the past 12 months, were you homeless or living in care home [including now]? No [facility] Start: 09-19-2021 Gender identity Identifies as female gender (finding) [facility] Start: 09-19-2021 Sexual orientation Heterosexual (fin ding) [facility] Are you now , , , , never or living with a partner? Refused [facility] How hard is it for y ou to pay for the very basics like food, housing, medical care, and heating Somewhat hard [facility] Do you feel stress - tense, restless, nervous, or anxious, or unable to sleep at night because your mind is troubled all the time - these days [OSQ] To some extent [facility] (I/We) worried reji er (my/our) food would run out before (I/we) got money to buy more. Never true [facility] NEGATED: Highlighted rowStart: NINF History of tobacco use Passive smoker [facility] Goals Date Patient Goal Desired Activity /State Personal health goal Clinical Notes 02-03-2022 to 02-22-2025 Elizabeth Robertson MD - 07/12/2024 10:34 AM Linda Pagan APRN.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 - 07/11/2024 12:43 PM Bharathi Ness MD - 01/24/2024 3:25 PM Jeannine Garcia APRN.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 - 11/23/2023 12:08 PM EST Note Date & Type Note Facility 02-22-2025 Note HNO ID: [id number] Author: MAGDA CARRANZA MA Service: ? Author Type: System Administration Manager Type: Progress Notes Filed: 02/22/2025 14:37 Note [...] Carranza MA February 22, 2025 2:35 PM [facility] 02-22-2025 Note Patient Outreach (NE TNAV) NATA QUEZADA ([id number]) 02 F [facility] Date Time Provider Department 02/22/25 MAGDA CARRANZA [...] Encounter Status:Closed by MAGDA CARRANZA on 02/22/25 [facility] 07-12-2024 Note HNO ID: [id number] Author: ELIZABETH ROBERTSON MD Service: ? 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 Encounter Diagnosis ICD-10-CM 1. Pelvic pain in female R10.2 Please see report under imaging tab. 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 Encounter Diagnosis ICD-10-CM 1. Pelvic pain in female R10.2 Please see report under imaging tab. Elizabeth Robertson MD July 12, 2024 10:34 AM documented in this encounter [facility] 07-11-2024 History of Presen t illness Narrative Joanne declined transport company manager. Nata QUEZADA presents today for IUD check. She had a Paraguard placed on 10/01/2023. She has had pain since placement. Patient reported ultrasound 07/11/2024, reported unable to locate strings. REVIEW OF SYSTEMS: PAIN ASSESSMENT: Negative for pain, history of chronic pain, or current treatment for a chronic pain condition. SENSITIVE EXAM: The sensitive examination was discussed with the Patient or Patient's Authorized Supervisor Metalizing. As applicable, any other physician, advance practice provider, medical student, or other health professional student that will be observing or involved in the sensitive examination for educational or training purposes was discussed with the Patient or Authorized Supervisor Metalizing. The Patient or Authorized Supervisor Metalizing has agreed to proceed with the sensitive [...] 3 - Low documented in this encounter [facility] 07-11-2024 Note HNO ID: [id number] Author: LINDA MÁRQUEZ APRN.CNP Service: ? Author Type: Nurse Practitioner Type: Progress Notes Filed: 07/11/2024 13:01 Note Text: Joanne declined transport company manager. Nata QUEZADA presents today for IUD check. She had a Paraguard placed on 10/01/2023. She has had pain since placement. Patient reported ultrasound 07/11/2024, reported unable to locate strings. REVIEW OF SYSTEMS: PAIN ASSESSMENT: Negative for pain, history of chronic pain, or current treatment for a chronic pain condition. SENSITIVE EXAM: The sensitive examination was discussed with the Patient or Patient's Authorized Supervisor Metalizing. As applicable, any other physician, advance practice provider, medical student, or other health professional student that will be observing or involved in the sensitive examination for educational or training purposes was discussed with the Patient or Authorized Supervisor Metalizing. The Patient or Authorized Supervisor Metalizing has agreed to proceed with the sensitive examination. (Sensitive examination includes inspection and/or palpation of the breasts, pelvis, prostate and anorectal regions). PHYSICAL EXAMINATION: [facility] 01/04/2024 ABDOMEN:soft, non-tender, no masses, no hepatosplenomegaly, [...] Medical Decision Making Level: 3 - Low [facility] 01-24-2024 History of Presen t illness Narrative Boot Lace Cutter Machine offered: Patient declines. Nata QUEZADA presents today [...] L1 SAB0 IAB0 Ectopic0 Multiple0 Live Births1 Cleaner Assistant History LMP: 01/04/2024 (Exact Date), IUD Age at Menarche: 15 Age at First : Age at Menopause: Cleaner Assistant History Comments: Sexual Activity: Not Currently; Male [...] external genitalia normal, normal Bartholin's glands, urethra, [place]'s glands, no vulvar lesions, no cervical lesions, [...] Bharathi Estrada MD documented in this encounter [facility] 11-23-2023 History of Presen t illness Narrative [...] old female who presents to [facility] walk in clinic for the following: [...] old female who presents to [facility] walk in clinic for UTI Sx [...] to improve. Signed: Jeannine Merrill APRN.[facility] spent a total of 25 minutes on the date of the service which included preparing to see the patient, [id number] patient care, completing clinical documentation, obtaining and/or reviewing separately obtained history, performing a medically appropriate examination, counseling and educating the patient/family/caregiver, and ordering medications, tests, or procedures. documented in this encounter [facility] 09-14-2023 Miscellaneous Notes Addended by: REMI POWELL on: 09/14/2023 03:28 PM Modules accepted: Orders documented in this encounter [facility] 09-14-2023 History of Presen t illness Narrative VISIT Nata Penaloza is a 22 year old year old here for visit. Delivery Summary: Yaz Oseas Gonzáleslow [[id number]] Delivery Information: Delivery Date: 07/28/23 Delivery type: Vaginal, Spontaneous Delivering Clinician: Yodit Fuchs MD Vacuum Used: No Forceps Used: No Shoulder Dystocia Present: No Lacerations: 1st Episiotomy: None : Gender: Male Weight (grams): 2772 g One Minute : 9 Five Minute : 9 ROS/ Recovery: Feeding: Breast and bottle feeding problems: None Menses since delivery: none Menstrual pattern prior to : Regular periods [place] since delivery: Resumed Depression: denies symptoms of [...] external genitalia normal, normal Bartholin's glands, urethra, [place]'s glands, no vulvar lesions, no cervical lesions, [...] Watt Sozen, MD documented in this encounter [facility] 08-20-2023 Miscellaneous Notes Summary: call back OB Post Discharge Patient Call Back: Date: 08/20/2023 Patient Name: Nata Penaloza : 2000 Delivery Summary: Oseas Quezada [[id number]] Delivery Information: Delivery Date: 07/28/23 Delivery type: Vaginal, Spontaneous Delivering Clinician: Yodit Fuchs MD Vacuum Used: No Forceps Used: No Shoulder Dystocia Present: No Lacerations: 1st Episiotomy: None : Gender: Male Weight (grams): 2772 g One Minute : 9 Five Minute : 9 Patient was contacted after her inpatient discharge from [facility]. She reported the following as [...] in: Bassinet Baby in need of a crib/Sard-wle-Azoo: No Baby's feeding: Method: Human milk only. Breast Feeding Problems: Per Nata, no problems BF but is also starting to pump and feed the EBM back to baby via bottle. Frequency: Within Normal Limits Education: N/A Baby's elimination habits: Average wet diapers: Within Normal Limits Average dirty diapers: Within Normal Limits Education: N/A Follow-up appointments: Scheduled appointment with a maintenance service supervisor: Has seen Scheduled a follow up appointment with OB provider: Has seen Suggestions/Concerns: Things that could have been done better during your stay: N/A Current concerns: N/A Referral(s): Patient referred to: [facility] was given the department's phone number as she stated that she did not have it incase she may need it in the future. Adilia Kirkpatrick RN documented in this encounter [facility] 08-19-2023 Instructions Elysia Collier MD - 08/19/2023 [...] Committee Opinion No. 670, May 2016. [employer] Gonsalo ROMERO, Jyothi J, Dony AL, Renetta YOU, Lauryn Montes MS. Contraceptive Technology. rev. ed. [place]: [employer]; 2010 Gujossue SE, Roshni DK, Alexei G, Greg PA, Cory M, Orlando KP. Lactogenesis after early use of the contraceptive implant: a randomized controlled trial. Obstetrics & Gynecolog 2011;117:1114-21 Belen AriasD, Yinka ER, Guzman AM, Tobi JM, Peter T, Krystina EF. Insertion of Levonorgestrel-intrauterine system at three time periods:a prospective randomized pilot highway patrol study. Contraception 2011;84:244-8. Patty BA, Amena M, Ernesto JL, Stepan HL, Denilson VAUGHN, Aldo ÁLVAREZ. Postplacental or delayed insertion of the levonorgestrel intrauterine device after vaginal delivery: a randomized controlled trial. Obstetrics & Gynecology 2010;116:1079-87. Up to Date: Intrauterine Contraception: Devices, Candidates and Selection, updated 04/02/17. Up to Date: Etonorgestrel Contraceptive Implant, updated 08/07/16 documented in this encounter [facility] 08-19-2023 History of Presen t illness Narrative EARLY VISIT Nata Penaloza is a 22 year old here for 3 week visit. Boot Lace Cutter Machine offered: Patient declines. Delivery Summary: Oseas Quezada [[id number]] Delivery Information: Delivery Date: 07/28/23 Delivery type: Vaginal, Spontaneous Delivering Clinician: Yodit Fuchs MD Vacuum Used: No Forceps Used: No Shoulder Dystocia Present: No Lacerations: 1st Episiotomy: None [place]: Gender: Male Weight (grams): 2772 g One [...] in bassinet/crib in parent's room, feels rested [place] since delivery: Not resumed Emotional support: Yes [...] Elysia Collier MD documented in this encounter [facility] 08-04-2023 History of Presen t illness Narrative BP 128/78 manual, 138/90 by home electronic cuff. Report to Dr. Collier who reviewed patient's On[employer] message with reported pressures from home. No new orders at this time. Patient to continue taking and recording home pressures and report them on Wednesday before lunch, to call or go in to triage for >150/>105. Patient verbalizes understanding and agreement with POC. Rajni Parmar RN documented in this encounter [facility] 07-30-2023 Note HNO ID: [id number] Author: Jenni Brady CPhT Service: Pharmacy Author Type: Bench Press Operator Type: Plan of Care Filed: 07/30/2023 11:20 AM Note Text: PHARMACY BEDSIDE DELIVERY SERVICE Patient Name: Nata Penaloza The marked outpatient medications were Filled at: [facility] and delivered to the patient's bedside to [...] Provider. Jenni Brady CPhT PAGER: Jenni Brady [phone] 07/30/23 11:20 AM July 30, 2023 11:19 AM [facility] 07-30-2023 Note HNO ID: [id number] Author: Delaney Durand APRN.CNM Service: Obstetrics Author Type: Director Of Consulting Services Type: Progress Notes Filed: 07/30/2023 7:26 AM [...] DATE: July 30, 2023 TIME: 7:25 AM [facility] 07-30-2023 Note HNO ID: [id number] Author: An Azevedo MD Service: Obstetrics Author [...] DATE: July 30, 2023 TIME: 6:26 AM [facility] 07-29-2023 Note HNO ID: [id number] Author: Delaney Durand APRN.CNM Service: Obstetrics Author Type: Director Of Consulting Services Type: Progress Notes Filed: 07/29/2023 7:37 AM [...] DATE: July 29, 2023 TIME: 7:22 AM [facility] 07-29-2023 Miscellaneous Notes Please schedule a one week BP check. Thanks Delaney Baer APRN.CNM documented in this encounter [facility] 07-29-2023 Note HNO ID: [id number] Author: An Azevedo MD Service: Obstetrics Author [...] DATE: July 29, 2023 TIME: 6:09 AM [facility] 07-28-2023 Note HNO ID: [id number] Author: Carie Botello DO Service: Obstetrics Author Type: Resident Type: Progress Notes Filed: 07/28/2023 8:01 AM Note Text: Patient pushing. Dr. Fuchs in house. SIGNATURE: Carie Botello DO PATIENT NAME: Nata Penaloza DATE: 07/28/2023 TIME: 8:01 AM PAGER/CONTACT #: [phone] [facility] 07-28-2023 Note HNO ID: [id number] Author: Ada Baird MD Service: Obstetrics Author [...] :38 AM Ada Baird MD :35 AM [facility] 07-28-2023 Note HNO ID: [id number] Author: Radha Bran DO Service: Obstetrics Author [...] DATE: July 28, 2023 TIME: 6:14 AM [facility] 07-28-2023 Note HNO ID: [id number] Author: Radha Bran DO Service: Obstetrics Author [...] DATE: July 28, 2023 TIME: 4:44 AM [facility] 07-28-2023 Note HNO ID: [id number] Author: Rodri French APRN.SPONGE PRESS OPERATOR Service: Anesthesiology Author Type: Nurse Records Management Director Type: Anesthesia Procedure Notes Filed: 07/28/2023 2:40 AM Note Text: ANESTHESIOLOGY PROCEDURE NOTE Epidural Block General Information Procedure Start Time/Medication Administration: 07/28/2023 2:05 AM Patient location during procedure: [facility] room Timeout Performed Pre-procedure: timeout performed Consent Obtained: Yes Patient identity confirmed: arm band, care seo team lead and patient Reason for block: labor epidural Staffing SPONGE PRESS OPERATOR: Rodri French APRN.SPONGE PRESS OPERATOR Performed by: [place] Preparation Sterility Preparation: hand [...] tolerated well without discomfort SIGNATURE: Rodri French APRN.SPONGE PRESS OPERATOR PATIENT NAME: Nata Penaloza DATE: July 28, 2023 TIME: 2:39 AM CSN: [id number] [facility] 07-28-2023 Note HNO ID: [id number] Author: Coral Freeman MD Service: Obstetrics Author [...] DATE: July 28, 2023 TIME: 1:49 AM [facility] 07-28-2023 Note HNO ID: [id number] Author: Coral Freeman MD Service: Obstetrics Author [...] DATE: July 27, 2023 TIME: 10:58 PM [facility] 07-27-2023 Note HNO ID: [id number] Author: Leelee Saini MD Service: Obstetrics Author [...] Estimated Blood Loss: None Leelee Saini MD [facility] 07-27-2023 History of Past i llness [...] of this encounter (statuses as of 07/29/2023) [facility]10-24-2023 History of Past illness Narrative* Problem Noted [...] of this encounter (statuses as of 08/04/2023) [facility]10-24[facility] History of Past illness Narrative* Problem Noted [...] of this encounter (statuses as of 08/05/2023) [facility]10-24-20[facility] History of Past illness Narrative* Problem Noted [...] of this encounter (statuses as of 08/20/2023) [facility] History of Past illness Narrative* Problem Noted [...] of this encounter (statuses as of 08/21/2023) [facility]10[facility] History of Past illness Narrative* Problem Noted [...] of this encounter (statuses as of 09/15/2023) [facility]10[facility] History of Past illness Narrative* Problem Noted [...] of this encounter (statuses as of 11/23/2023) [facility]10-23-2023 NoteHNO ID: [id number] Author: Darling Rust DO Service: Obstetrics Author Type: Resident Type: Progress Notes Filed: 07/26/2023 8:51 PM Note Text: Return precautions for pre-eclampsia reviewed including DOMINGUEZ not responsive to tylenol, vision changes, SOB, CP, RUQ pain, and BP reading greater than 150/100. Patient verbalized understanding. Darling Rust [facility]10-23-2023 NoteHNO ID: [id number] Author: Elizabeth Storey DO Service: ? Author [...] Dr. Baird and Dr. Shantal Storey DO [facility] Emergency Medicine Resident [facility]23 NoteHNO ID: [id number] Author: Ada Baird MD Service: Obstetrics Author [...] July 26, 2023 TIME: 8:28 [facility]10-23-2023 NoteHNO ID: [id number] Author: Elizabeth Storey DO Service: Obstetrics Author [...] July 26, 2023 TIME: 6:41 [facility]10-23-2023 Miscellaneous Notes* Telephone Encounter - Jessie [...] understanding. Jessie Whaley LPN documented in this [facility]10-20-2023 History of Present illness Narrative* Remi Powell MD - 07/23/2023 3:16 PM EDT Please refer to quick note and flow sheet. Remi Powell MD documented in this [facility]10-20-2023 Miscellaneous Notes* Quick Notes - Remi [...] day. Remi Powell MD documented in this [facility]10-20-2023 Nurse Note* Karli Pineda Ma - 07/23/2023 2:52 PM EDT Movement? Active baby Vaginal Bleeding: NO Vaginal fluid leakage of fluid: NO Contractions: Carmelo-Manning type documented in this [facility]10-20-2023 History of Present illness Narrative* Georgiana Kasper MA - 07/23/2023 12:02 PM EDT POPULATION HEALTH NAVIGATION OUTREACH Action/FYI Called and spoke with pt and confirmed/updated maintenance service supervisor. Patient Identified by Name and : YES, via phone Outreach Outcome/Action OB/PEDS field updated Did you use a PCP flex slot to schedule this appointment? N/A Reason for Outreach [place] Payer: Payor: EHP AETNA / Plan: [facility] STAFF/NON STAFF / Product Type: EPO / [...] 23, 2023 12:03 PM documented in this [facility]10-14-2023 History of Present illness Narrative* Remi Powell MD - 07/17/2023 12:37 PM EDT Please refer to quick note and flow sheet. Remi Powell MD documented in this [facility]10-14-2023 Miscellaneous Notes* Quick Notes - Remi Powell MD - 07/17/2023 12:36 PM EDT Here for routine Visit at 37w1d. No complaints. Good movement. No vaginal bleeding, leakage of fluids, contractions. Ob education done, questions answered. GBS done. Remi Powell MD documented in this [facility]10-13-2023 Nurse Note* Kinza Fuchs Ma - 07/16/2023 3:14 PM EDT Movement? Active baby Vaginal Bleeding: NO Vaginal fluid leakage of fluid: NO Contractions: no contractions documented in this [facility]09-28-2023 History of Present illness Narrative* Remi Powell MD - 07/01/2023 6:23 PM EDT Please refer to quick note and flow sheet. Remi Powell MD documented in this [facility]09-28-2023 Miscellaneous Notes* Quick Notes - Remi Powell MD - 07/01/2023 6:22 PM EDT Here for routine Visit at 34w6d. No complaints. Good movement. No vaginal bleeding, leakage of fluids, contractions. Ob education done, questions answered. BP wnl. GBS next visit. Remi Powell MD documented in this [facility]09-28-2023 Nurse Note* Kinza Fuchs Ma - 07/01/2023 3:32 PM EDT Movement? Active baby Vaginal Bleeding: NO Vaginal fluid leakage of fluid: NO Contractions: no contractions documented in this [facility]09-23-2023 History of Present illness Narrative* Elysia Collier MD - 06/26/2023 4:10 PM EDT Please refer to flow sheet and comments for OB note. Elysia Collier MD documented in this [facility]09-22-2023 Miscellaneous Notes* Quick Notes - Elysia [...] accepts. Elysia Collier MD documented in this encounterLouis [facility]09-[facility]-2023 Nurse Note* Karli Pineda Ma - 06/25/2023 3:17 PM EDT Movement? Active baby Vaginal Bleeding: NO Vaginal fluid leakage of fluid: NO Contractions: no contractions documented in this encounterLouis Stokes [facility] Center08-23-2023 History of Present illness Narrative* Tonya Gerardo APRN.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 - 05/26/2023 6:53 PM EDT This note was created using Yunaitriter. Subjective Nata Penaloza is a 22 year old female. 22 year old female with PMH T & A who is currently 29 weeks (G1) gestational presents with complaints of illness. Sore throat Acute onset 05/18/23 Seen @ [facility], strep negative COVID negative Presents today with continued sx. Denies eye, ear, or nose complaints. Denies cough. Vaginal discharge Slightly yellow +odorous Denies vaginal bleeding. Denies sx. Denies abdominal cramping. 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 The history is provided by the patient. No spanish interpreter was used. Sore Throat This is a [...] mouth once daily as needed for nausea/vomiting. [id number]-blu-rdb-hvdi 27 mg iron-800 mcg-260 mg Take 1 [...] patient that express care does not handle DIRECTOR COMPLIANCE complaints, She is to call her DIRECTOR COMPLIANCE first thing in morning for evaluation and management. Verbalized understanding. Tonya Gerardo APRN.CNP documented in this encounterLouis Stokes [facility]08-18-2023 History of Present illness Narrative* Remi Powell MD - 05/21/2023 9:00 AM EDT Please refer to quick note and flow sheet. Remi Powell MD documented in this encounterLouis Stokes [facility] Center08-18-2023 Miscellaneous Notes* Quick Notes - Remi Powell MD - 05/21/2023 9:00 AM EDT Here for routine Visit at 29w0d. No complaints. Good movement. No vaginal bleeding, leakage of fluids, contractions. Ob education done, questions answered. CBC and Tdap today. Remi Powell MD documented in this encounterLouis Stokes [facility] Center08-18-2023 Nurse Note* Ghislaine Baltazar MA - 05/21/2023 8:44 AM EDT Movement? Active baby Vaginal Bleeding: NO Vaginal fluid leakage of fluid: NO Contractions: no contractions documented in this encounterLouis Stokes [facility] Center08-16-2023 Instructions* Patient Instructions* Jerri Saab APRN.VIRGEN - [...] the spread of infection. documented in this encounterLouis Stokes [facility] Center08-16-2023 History of Present illness Narrative* Jerri Saab APRN.CNP - 05/19/2023 3:02 PM EDT Images from the original note were not included. CC: 5/10 sore throat since yesterday The history is provided by the patient The patient's preferred language is Ugandan PAST MEDICAL HISTORY Diagnosis Date No pertinent [...] follow-ups on file. Signed: RA Armando [facility] I spent a total of 15 minutes on the date of the service which included preparing to see the patient, dcpx-[id number] patient care, completing clinical documentation, obtaining and/or reviewing separately obtained history, performing a medically appropriate examination, counseling and educating the pat ient/family/caregiver, and ordering medications, tests, or procedures. documented in this encounterLouis Stokes Cleveland [facility] Center07-18-2023 Miscellaneous Notes* Quick Notes - Orlando Burroughs MD - 04/20/2023 8:24 AM EDT 1 hour, W/O complaint, No LOF, No Ctx's, No Vag bleed. Juana Burroughs MD documented in this encounterLouis Stokes Cleveland [facility] Center07-18-2023 Nurse Note* Kinza Fuchs Ma - 04/20/2023 8:19 AM EDT Movement? Active baby Vaginal Bleeding: NO Vaginal fluid leakage of fluid: NO Contractions: no contractions documented in this encounterLouis Stokes [facility] Center05-02-2023 History of Present illness Narrative* Remi Powell MD - 02/02/2023 2:56 PM EDT Please refer to quick note and flow sheet. Remi Powell MD documented in this encounterLouis Stokes [facility] Center05-02-2023 Miscellaneous Notes* Quick Notes - Remi Powell MD - 02/02/2023 2:54 PM EDT Here for routine Visit at 13w4d. No complaints. No vaginal bleeding, leakage of fluids, contractions. Ob education done, questions answered. Labs reviewed. Remi Powell MD documented in this encounterLouis Stokes [facility] Center05-01-2023 Miscellaneous Notes* Telephone Encounter - [...] results will be released on 02/05/ to [facility] and not to look if she [...] results. Melony Bryan RN documented in this encounterLouis Stokes [facility] Center04-28-2023 Nurse Note* Kinza Fuchs Ma - 01/29/2023 8:11 AM EDT Movement? 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 Remi Powell MD documented in this encounterLouis Stokes [facility] Center03-24-2023 Instructions* Patient Instructions* Remi Powell MD - 12/25/2022 10:05 AM EDT Please select the following link to access the [facility] Your Guide to a Healthy . [email or web address] documented in this [facility]03-24-2023 Nurse Note* Ghislaine Baltazar MA - 12/25/2022 9:37 AM EDT Movement? Too early Vaginal Bleeding: NO Vaginal fluid leakage of fluid: NO Contractions: no contractions documented in this [facility]02-27-2023 Instructions* Patient Instructions* Maegan Morrissey PA-C - 11/30/2022 12:38 PM EST OB-PROVER [phone] documented in this [facility]02-27-2023 History of Present illness Narrative* Maegan Morrissey PA-C - 11/30/2022 12:16 PM EST Images from the original note were not included. Medicine [place] Department of General Internal Medicine [facility] Outpatient Visit Date: November 30, 2022 CC: Patient presents with: Testing: Home test positive; pt seeking confirmation and next steps HPI: Nata Penaloza is a 21 year old female who presents today to the [address] walk in clinic for concerns regarding [...] ICD9: V72.42, ICD10: Z32.01 - CONSULT TO DIRECTOR COMPLIANCE - Urine HCG positive in office today. [...] plan. Maegan Morrissey PA-C documented in this encounterLouis Stokes [facility] Center02-07-2023 Miscellaneous Notes* Telephone Encounter - JERI Barahona - 11/10/2022 9:35 AM EST I called Nata about the IOP at the request of Rajni Evans. She declined. documented in this encounterLouis Stokes Cleveland [facility] Center01-31-2023 History of Present illness Narrative* EMIGDIO Tinoco - 11/03/2022 3:00 PM EST GENERAL PSYCHOLOGY Virtual Visit Verified that patient is in [facility]. This provider is also in the [facility] Patient was seen for an initial [...] 3 months. 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 Stopped that job, moved to [place], but has moved back. PAST MEDICAL HISTORY [...] No Known Allergies REFERRAL SOURCE: Psychiatrist - SENIOR CENTER DIRECTOR CHIEF COMPLAINT: Reconsolidation. Therapist. HPI: was seeing another therapist who referred to me- meaning SENIOR CENTER DIRECTOR. Thought it would be helpful for me [...] past couple years, both short term and group home Anxiety: moderate and gets overwhelming feeling of [...] Eating D/o Prior Psychiatrist: Followed here at [facility] by Frida Gamboa Therapist: No prior therapist Current Line Installer Repairer: None Last Hospitalization: None SUICIDE RISK ASSESSMENT: [...] sister. The patient wasborn and raised in [facility] 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 She described her childhood as loving, supportive, [...] Legal: Pt. denied any past legal history Spirituality/Lutheran: spiritual, believes in Gd Flashbacks + when [...] Talking about future goals or plans and Dbbt-nbquzbw-bigy-rejecting - Perceptions: The patient does not appear [...] that level of care. Patient expressed understanding that[facility] providers are asked to provide short-term therapy, [...] Patient was encouraged to follow up with SENIOR CENTER DIRECTOR and discuss concerns re medication Pt was encouraged to consider IOP Pt would be served by referral to group home therapy after IOP EMIGDIO Tinoco documented in this encounterLouis Stokes [facility] Center12-31-2022 Miscellaneous Notes* Telephone Encounter - Rachel Glynn - 10/03/2022 12:34 PM EST Patient given results and verbalized understanding of instructions given.dc Rachel Glynn * Telephone Encounter - Jesika Stearns PA-C - 10/03/2022 10:40 AM EST Please let her know not to drink any alcohol while on the Flagyl, will make her very ill. The Diflucan sent in yesterday should take care of the yeast. If symptoms are persisting follow-up with DIRECTOR COMPLIANCE. * Telephone Encounter - Radha Temple LPN [...] in. Patricia Nuno APRN.VIRGEN documented in this encounterLouis Stokes Cleveland Va Medical Center12-30-2022 History of Present illness Narrative* Washington Goss [...] similar. Patient denies the use of any ddzr-ics-ksdihvz medications or home remedies for symptom management. [...] Objective Physical Exam Exam conducted with a transport company manager present. Constitutional: General: She is not in [...] of care. This note was generated using MetroGames software. It may contain errors in wording, punctuation, or spelling. Washington Goss APRN.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 documented in this encounterLouis Stokes Cleveland [facility] Center10-19-2022 History of Present illness Narrative* Wilver Montemayor [...] 22, 2022 5:16 PM documented in this encounterLouis Stokes Cleveland [facility] Center10-14-2022 Nurse Note* Kasia Blackmon MA - 07/17/2022 [...] not greater than 100.4F/38C):NO Denies history of Guillain-[place] Syndrome (a severe paralytic illness): NO Denies [...] G10: Yes, Is the patient active on SpotMehart Yes What is the patients preferred method of communication: Lisa Talamantes LPN documented in this encounterLouis Stokes Cleveland [facility] Center10-14-2022 History of Present illness Narrative* Hellen Paez [...] IM Hellen Paez MD documented in this encounterLouis Stokes Cleveland [facility] Center10-13-2022 Instructions* Patient Instructions* Elysia Campbell APRN.CNP - 07/16/2022 4:31 PM EDT Plan: Swabs done today to evaluate discharge Recommend making sure emptying bladder completely Can try hot bath to help relax pelvic floor Elysia Campbell APRN.VIRGEN documented in this encounterLouis Stokes Cleveland [facility] Center10-13-2022 History of Present illness Narrative* Elysia Campbell APRN.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 - 07/16/2022 4:00 PM EDT Nata Penaloza [...] Can be painful GI - No symptoms [place] - no pain Has had some yellow discharge lately. Maybe some odor No concerns for STDs. Using condoms but accepts STD testing First sexually active at the beginning of this month. Then these symptoms all started Had to stop OCP due to mood changes Depo in the past OB History T0 L0 SAB0 IAB0 Ectopic0 Multiple0 Live Births0 Cleaner Assistant History LMP: 04/01/2022, Having periods Age at Menarche: 15 Age at First : Age at Menopause: Cleaner Assistant History Comments: Sexual Activity: Not Currently; Male [...] sodium chloride 0.65 % drop Use 1 [place] in the nose. (Patient not taking: Reported [...] external genitalia normal, normal Bartholin's glands, urethra, [place]'s glands, no vulvar lesions, no cervical lesions, [...] to help relax pelvic floor Elysia Campbell APRN.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 Medical Decision Making: Problems: Low: Acute, uncomplicated illness or injury Data: Unique test(s) ordered: 3+ Risk: Low: Low risk from testing/treatment Medical Decision Making Level: 3 - Low documented in this encounterLouis Stokes [facility] Center10-05-2022 History of Present illness Narrative* Wilver Montemayor [...] 08, 2022 3:34 PM documented in this encounterLouis Stokes Cleveland [facility] Center09-30-2022 History of Present illness Narrative* RT Shawn(R) [...] 03, 2022 12:27 PM documented in this encounterLouis Stokes Cleveland [facility] Center09-28-2022 History of Present illness Narrative* Wilver Montemayor [...] sodium chloride 0.65 % drop Use 1 [place] in the nose. (Patient not taking: Reported [...] which included preparing to see the patient, wpgh-kw-jmns patient care, completing clinical documentation, performing a [...] 01, 2022 5:15 PM documented in this encounterLouis Stokes Cleveland [facility] Medical Center07-12-2022 History of Present illness Narrative* Carmen Ramirez [...] sodium chloride 0.65 % drop Use 1 [place] in the nose. montelukast (SINGULAIR) 10 mg [...] Level: 4 - Moderate documented in this encounterLouis Stokes Cleveland Va Medical Center07-12-2022 Nurse Note* Tori Garcia RN - 04/14/2022 3:06 PM EDT Tobacco Use: Never Was smoking cessation packet given? N/A - Patient is a non-smoker or quit >1 year ago. Was a referral initiated?N/A Patient is a non-smoker documented in this encounterLouis Stokes Cleveland [facility] Medical Center07-12-2022 History of Present illness Narrative* Lois Petersen MA - 04/14/2022 10:41 AM EDT POPULATION HEALTH NAVIGATION OUTREACH Action/FYI April 14, 2022 Spoke with patient. We have scheduled her [facility] follow up with Maxine Zhu MD on 04.21.2022 Thank you Pt identified by name and : YES, via phone Outreach Outcome/Action Spoke to patient or caregiver: Patient scheduled Did you use a PCP flex slot to schedule this appointment? No Reason for Outreach [facility] [place] Payer: Payor: EHP AETNA / Plan: EHP [...] TCM Eligible through 04/26 will forward to log cooker SUMMARY: Pt discharged from [facility] on 04/12/22. Admitted for: Syncope/Nausea Contact made with patient: Yes Hi my name is Frida Champagne RN and I am calling from the [facility] on behalf of your PCP, Hellen Paez [...] like to speak with a social work seo team lead to help give you support for any [...] I will send your request to a log cooker who will contact and assist you with that appointment. This will give you an opportunity to ask any questions or address any concerns youmay have with your PCP. Inform the patient that if they have any questions or concerns prior to that appointment, to call their PCP's office right away. ACTION TAKEN: Patient desires an appointment - Routed to [facility] [[id number]] for schedulingtelehealth visit (telephonic, virtual visit, or [...] PCP follow up SUMMARY: Pt discharged from [facility] on 04/12/22. Admitted for: Syncope/Nausea Contact made with patient: No - next outreach attempt will be on next day gladys Stout is Roxie dunlap registered nurse emergency care attendant calling from the [facility] on behalf of your primary care providers [...] Home Visit Referral Source of Stratification: TCM [facility] Hospital Admission Status: Discharged Readmission Risk Score: [...] No Dialysis Patient: No documented in this encounterLouis Stokes Cleveland [facility] Medical Center07-08-2022 History of Present illness Narrative* Luana Nevarez [...] agrees. Luana Nevarez APRN.CNP documented in this encounterLouis Stokes Cleveland [facility] Center07-06-2022 History of Present illness Narrative* Maxine Dewitt APRN.CNP - 04/08/2022 11:30 AM EDT Images from the original note were not included. Women's Health [place] Department of Benign Gynecology [facility] PATIENT NAME: Nata Penaloza DATE: 04/08/2022 Patient Name and verified: Yes Patient Location: [place] This Virtual Visit was completed using [employer] Chart Zoom platform. Chief Complaint CC: control [...] active. She is on 5th floor in [facility]. Cycles are regular; bleeding during placebo week Breakthrough bleeding: No Dysmenorrhea: No Heavy flow: No Compliant: Yes Side effects: No BP: N/A Last 4 Encounter BP Readings: Date: BP: 03/31/2022 140/88[Initial Blood Pressure[ 03/04/2022 128/75 12/30/2021 104/68 OB History T0 L0 SAB0 IAB0 Ectopic0 Multiple0 Live Births0 Cleaner Assistant History LMP: 02/21/2022 (Approximate), Having periods Age at Menarche: 15 Age at First : Age at Menopause: Cleaner Assistant History Comments: Sexual Activity: Not Currently; Male [...] sodium chloride 0.65 % drop Use 1 [place] in the nose. montelukast (SINGULAIR) 10 mg [...] 4) Follow up PRN and for annual PROVER exams The following approved medication requests have [...] Address Telephone [facility] -INTERNAL USE ONLY [address] [address] SIGNATURE: Maxine Dewitt APRN.VIRGEN PAGER: [phone] Medical Decision Making: Problems: Moderate: 1+ chronic illnesses with change Risk: Moderate: Drug management Medical Decision Making Level: 4 - Moderate documented in this encounterLouis Stokes Cleveland [facility] Center06-28-2022 Instructions* Patient Instructions* Angela Ray MD - 03/31/2022 4:22 PM EDT Thank you for coming in today! It was a pleasure to see you at [facility] today. Before your next [...] access care: - To reach office, call [phone] during business hours. - To schedule an appointment or with after hours health concerns, call scheduling at [phone]. - Schedule specialty appointments, call [phone] ([phone]) - For non-urgent questions and medications refills, please send me a nxtControl message and allow 3 business days for a response or call [phone] - Labs can be done at any [facility] location, orders are active for 1 month Angela Ray MD Internal Medicine and Pediatrics Staff 03/31/22 4:23 PM documented in this encounterLouis [facility] History of Present illness Narrative* Angela Ray MD - 03/31/2022 4:07 PM EDT [facility] Medicine [facility] [place] [facility] [place] This is a 21 year old [...] sodium chloride 0.65 % drop Use 1 [place] in the nose. montelukast (SINGULAIR) 10 mg [...] which included preparing to see the patient, [id number] patient care, completing clinical documentation, obtaining and/or reviewing separately obtained history, performing a medically appropriate examination, counseling and educating the pat ient/family/caregiver and ordering medications, tests, or procedures. Angela Ray MD documented in this encounterLouis [facility]06-28-[facility]22 Nurse Note* MILES Eddy - 03/31/2022 3:53 [...] G10: No Is the patient active on [employer] Yes What is the patients preferred method of communication: MILES Pino documented in this encounterLouis [facility]06-07-2022 Miscellaneous Notes* Telephone Encounter - Maxine Dewitt APRN.CNP - 03/10/2022 3:17 PM EDT The following approved medication requests have been transmitted electronically. Signed Prescriptions Disp Refills Desogestrel-Ethinyl Estradiol (JATINDEREN, 28,) 0.15-0.03 mg per tablet 84 tablet 0 Sig: Take 1 tablet by mouth once daily. RONY: No Pharmacy Information Pharmacy Address Telephone [facility]INTERNAL USE ONLY [address] [phone] Appointments for Next 60 Days Date Time Provider Location Dept Phone 04/08/2022 11:30 AM MAXINE DEWITT Bldg [phone] Maxine Dewitt APRN.CNP March 10, 2022 3:17 PM documented in this encounterLouis [facility] Instructions* Patient Instructions* Louann Garcia PA-C - [...] treated. A physician, nurse practitioner or physician senior agricultural assistant may treat with a short course [...] women if symptoms resolve. documented in this encounterLouis [facility]06-01-[facility]22 History of Present illness Narrative* Louann Garcia [...] which included preparing to see the patient, [id number] patient care, completing clinical documentation, performing a medically appropriate examination, counseling and educating the patient/family/caregiver and ordering medications, tests, or procedures. documented in this encounterLouis Stokes [facility]06-01-2022 History of Present illness Narrative* Romario Elias PA-C - 03/04/2022 10:29 AM EDT This is an Express Care eVisit note for Nata Penaloza eVisit/Questionnaire reviewed The chief complaint for the visit - Patient presents with: Urinary Problem Recommendations/Treatment plan - See My Chart Message to patient Romario Elias PA-C documented in this encounterLouis [facility]06[facility]22 History of Present illness Narrative* Romario Elias PA-C - 03/04/2022 10:17 AM EDT This is an Express Care eVisit note for Nata Penaloza eVisit/Questionnaire reviewed The chief complaint for the visit - Patient presents with: Urinary Problem Recommendations/Treatment plan - See My Chart Message to patient Romario Elias PA-C documented in this encounterLouis [facility]05-03-2022 History of Present illness Narrative* Maegan Stinson APRN.CNP - 02/03/2022 2:12 PM EDT This is an Express Care eVisit note for Nata Penaloza eVclaryit/Questionnaire reviewed The chief complaint for the visit - Patient presents with: UTI Recommendations/Treatment plan - See My Chart Message to patient Maegan Stinson APRN.CNP Total time spent on e-Visit: 3 minutes documented in this encounterLouis [facility]* Diagnosis Treatment not available- Primary Procedure not carried out for other reasons documented in this encounter [facility]* Diagnosis Leukocytes in urine- Primary Other cells and casts in urine Dysuria Urinary frequency documented in this encounter [facility]* Diagnosis Encounter for initial prescription of contraceptive pills General counseling for prescription of oral contraceptives documented in this encounter [facility]* Diagnosis Wellness examination- Primary 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, congenital Other specified congenital anomaly of pharynx Cleft palate, unspecified Chronic midline 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 sciatica Vasovagal syncope Syncope and collapse documented in this encounter [facility] note* Diagnosis Emergency contraception- Primary Encounter for initial prescription of contraceptive pills General counseling for prescription of oral contraceptives Decreased appetite Anorexia History of recent stressful life event documented in this encounter [facility] note* Diagnosis Procedure not carried out- Primary Procedure not carried out for other reasons documented in this encounter [facility] note* Diagnosis Allergic rhinitis, unspecified seasonality, unspecified trigger- Primary Dysfunction of both eustachian tubes Dysfunction of Eustachian tube documented in this encounter [facility] note* Diagnosis Chronic bilateral thoracic back pain- Primary documented in this encounter [facility] note* Diagnosis Chronic bilateral thoracic back pain documented in this encounter [facility] note* Diagnosis Chronic bilateral thoracic back pain- Primary Chronic bilateral 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 sciatica documented in this encounter [facility] note* Diagnosis Urinary urgency- Primary Urgency of urination Feeling of incomplete bladder emptying Incomplete bladder emptying Vaginal discharge Leukorrhea, not specified as infective Vaginal odor Unspecified symptom associated with female genital organs Urinary frequency documented in this encounter [facility] note* Diagnosis Primary insomnia- Primary Persistent disorder of initiating or maintaining sleep Cyclothymia Cyclothymic disorder Recurrent syncope Chronic maxillary sinusitis Encounter for immunization Need for other specified prophylactic vaccination against single bacterial disease documented in this encounter [facility] note* Diagnosis Chronic bilateral thoracic back pain- Primary documented in this encounter [facility]* Diagnosis Urinary frequency- Primary Vaginal discharge Leukorrhea, not specified as infective documented in this encounter [facility] note* Diagnosis Bipolar II disorder (HCC)- Primary Other bipolar disorders Post traumatic stress disorder (PTSD) Posttraumatic stress disorder Eating disorder, unspecified type documented in this encounter [facility] note* Diagnosis confirmed by positive urine test- Primary examination or test, positive result Possible examination or test, unconfirmed documented in this encounter [facility] note* Diagnosis Encounter for supervision of normal first in first trimester- Primary Supervision of normal first confirmed by positive urine test examination or test, positive result documented in this encounter [facility] note* Diagnosis Encounter for supervision of normal first in first trimester- Primary Supervision of normal first IUD migration, initial encounter documented in this encounter [facility]* Diagnosis Candidal vaginitis- Primary Candidiasis of vulva and vagina documented in this encounter [facility]* Diagnosis Encounter for anatomic survey- Primary Encounter for screening of mother Unspecified screening documented in this encounter [facility] note* Diagnosis Encounter for supervision of normal first in second trimester- Primary Supervision of normal first 24 weeks gestation of state, incidental documented in this encounter [facility] note* Diagnosis Sore throat- Primary Acute pharyngitis Suspected COVID-19 virus infection documented in this encounter [facility] note* Diagnosis Encounter for supervision of normal first in third trimester- Primary Supervision of normal first documented in this encounter [facility]* Diagnosis Pharyngitis, unspecified etiology- Primary documented in this encounter [facility]* Diagnosis Encounter for supervision of normal in third trimester, unspecified - Primary Elevated blood pressure affecting in third trimester, antepartum Need for influenza vaccination Need for prophylactic vaccination and inoculation against influenza 34 weeks gestation of state, incidental documented in this encounter [facility]* Diagnosis Encounter for supervision of normal first in third trimester- Primary Supervision of normal first documented in this encounter [facility] note* Diagnosis Encounter for supervision of normal in third trimester, unspecified - Primary documented in this encounter [facility]* Diagnosis Encounter for supervision of normal in third trimester, unspecified - Primary [facility] Diagnosis BP check- Primary Screening for hypertension [facility] Diagnosis Encounter for screening for maternal depression- Primary documented in this encounter [facility]* Diagnosis care and examination- Primary Routine follow-up Cervical cancer screening Screening for malignant neoplasm of the cervix documented in this encounter [facility]* Diagnosis Acute cystitis with hematuria- Primary Acute cystitis UTI symptoms Other symptoms involving urinary system documented in this encounter [facility]* Diagnosis Pelvic pain in female- Primary Unspecified symptom associated with female genital organs IUD check up Surveillance of previously prescribed intrauterine contraceptive device Abnormal uterine bleeding (AUB) documented in this encounter [facility]* Diagnosis Surveillance of previously prescribed intrauterine contraceptive device- Primary documented in this encounter [facility]* Diagnosis Pelvic pain in female Unspecified symptom associated with female genital organs [facility] Diagnosis Ovarian cyst, right- Primary Other and unspecified ovarian cyst documented in this encounter [facility] for referral (narrative)* Diagnostic Procedure Only (Routine) - Authorized Specialty Diagnoses / Procedures Referred By Contac t Referred To Contact XR IMAGING Diagnoses Chronic bilateral thoracic back pain Procedures XR THORACIC GENERAL 3V AP/LAT/SWIMMERS RADEX SPINE THORACIC 3 VIEWS Wilver Montemayor DC [address] [place] [address] Xr Imaging Referral ID Status Reason Start Date Expiration Date Visits Requested Visits Authorized [id number] Authorized Auto-Generat ed Referral 07/01/2022 07/31/2023 1 1 [facility] for referral (narrative)* Diagnostic Procedure Only (Routine) - Closed Specialty Diagnoses / Procedures Referred By Contac t Referred To Contact XR IMAGING Diagnoses Chronic bilateral thoracic back pain Procedures XR THORACIC GENERAL 3V AP/LAT/SWIMMERS RADEX SPINE THORACIC 3 VIEWS Wilver Montemayor DC [address] [place] [address] Xr Imaging Referral ID Status Reason Start Date Expiration Date V isits Requested Visits Authorized [id number] Closed Auto-Generate d Referral 07/01/2022 07/31/2023 1 1 [facility] for referral (narrative)* Diagnostic Procedure Only (Routine) - Authorized Specialty Diagnoses / Procedures Referred By Contac t Referred To Contact [facility] [place]] Diagnoses Encounter for supervision of normal first in first trimester Procedures NUCHAL TRANSLUCENCY WHI US NUCHAL TRANSLUCENCY 1ST GESTATION Remi Powell MD [address] [facility] [address] [place] [address] [facility] [address] [place] [address] Referral ID Status Reason Start Date Expiration Date Visits Requested Visits Authorized [id number] Authorized Auto-Generat ed Referral 12/25/2022 12/25/2023 1 1 [facility] for referral (narrative)* Outpatient Procedure (Routine) - Authorized Specialty Diagnoses / Procedures Referred By Contac t Referred To Contact [facility] Diagnoses Sore throat Procedures OXIMETRY AT REST NONINVASIVE EAR/PULSE OXIMETRY SINGLE Jerri Cartagena APRN.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 [address] [place] [address] [facility] [address] [place], [place] [id number] Referral ID Status Reason Start Date Expiration Date Visits Requested Visits Authorized [id number] Authorized Auto-Generat ed Referral 05/19/2023 06/17/2024 1 1 [facility] for referral (narrative)* Diagnostic Procedure Only (Routine) - Authorized Specialty Diagnoses / Procedures Referred By Contac t Referred To Contact [facility] [place]] Diagnoses Pelvic pain in female Procedures PELVIC US [facility] US PELVIC NONOBSTETRIC REAL-TIME IMAGE COMPLETE Bharathi Estrada MD [address] [place] [address] [address] Referral ID Status Reason Start Date Expiration Date Visits Requested Visits Authorized [id number] Authorized Auto-Generat ed Referral 01/24/2024 01/23/2025 1 1 [facility] for referral (narrative)* Diagnostic Procedure Only (Routine) - New Request Specialty Diagnoses / Procedures Referred By Contac t Referred To Contact [facility] [place] 2] Diagnoses Ovarian cyst, right Procedures PELVIC US [facility] US PELVIC NONOBSTETRIC REAL-TIME IMAGE COMPLETE Bharathi Estrada MD [address] [place] [address] [address] Referral ID Status Reason Start Date Expiration Date Visits Requested Visits Authorized [id number] New Request Auto-Generat ed Referral 07/12/2024 07/12/2025 1 1 [facility] for visit Narrative* Diagnostic Procedure Only (Routine) - Closed Specialty Diagnoses / Procedures Referred By Contac t Referred To Contact [facility] [place]] Diagnoses Pelvic pain in female Procedures PELVIC US WH[facility] US PELVIC NONOBSTETRIC REAL-TIME IMAGE COMPLETE Bharathi Estrada MD [address] [place] [address] [facility] [address] [id number] Referral ID Status Reason Start Date Expiration Date V isits Requested Visits Authorized [id number] Closed Auto-Generate d Referral 01/24/2024 01/23/2025 1 1 [facility] Advance Directives No Advanced Directives Records FoundDocuments on File Type Date Recorded Patient Supervisor Metalizing Expl anation Advance Directive(s) 04/10/2022 7:51 PM Documents on File Type Date Recorded Patient Supervisor Metalizing Expl anation Advance Directive(s) 04/10/2022 7:51 PM Reason for Referral Specialty Diagnoses / Procedures Referred By Contac t Referred To Contact Diagnoses Dysfunction of both eustachian tubes Procedures ADULT HEARING TEST/AUDIOGRAM COMPRE AUDIOMETRY THRESHOLD [place] [address] [place] [address] [facility] [address] [place] [address] Referral ID Status Reason Start Date Expiration Date Visits Requested Visits Authorized [id number] Authorized Auto-Generat ed Referral 04/14/2022 07/13/2022 1 1 Specialty Diagnoses / Procedures Referred By Contac t Referred To Contact Allergy Diagnoses Allergic rhinitis, unspecified seasonality, unspecified trigger Procedures CONSULT TO ALLERGY/IMMUNOLOGY OFFICE/OUTPATIENT NEW HIGH MDM 60-74 MINUTES Carmen Ramirez MD [address] [place] [address] Referral ID Status Reason Start Date Expiration Date Visits Requested Visits Authorized [id number] Authorized PCP Requested Referral 04/14/2022 04/14/2023 1 1 Specialty Diagnoses / Procedures Referred By Contac t Referred To Contact Diagnoses Recurrent syncope Procedures CONSULT TO SYNCOPE CLINIC OFFICE/OUTPATIENT [facility] 60-74 MINUTES Hellen Paez MD [address] [place] [address] Referral ID Status Reason Start Date Expiration Date Visits Requested Visits Authorized [id number] Authorized PCP Requested Referral 2 07/17/2023 1 1 Specialty Diagnoses / Procedures Referred By Contac t Referred To Contact ADULT PSYCHIATRY Diagnoses Bipolar II disorder (HCC) Post traumatic stress disorder (PTSD) Eating disorder, unspecified type Procedures CONSULT TO INTENSIVE OUTPATIENT PROGRAM (IOP) OFFICE/OUTPATIENT [facility] 60-74 MINUTES Rajni Evans LISW [address] [id number] [facility] [address] [place] [address] Referral ID Status Reason Start Date Expiration Date Visits Requested Visits Authorized [id number] Authorized PCP Requested Referral 11/03/2022 11/03/2023 1 1 Specialty Diagnoses / Procedures Referred By Contac t Referred To Contact Diagnoses confirmed by positive urine test Procedures CONSULT TO DIRECTOR COMPLIANCE OFFICE/OUTPATIENT [facility] 60-74 MINUTES Maegan Morrissey PA-C [address] [phone] Referral ID Status Reason Start Date Expiration Date Visits Requested Visits Authorized [id number] Authorized PCP Requested Referral Auto-Generate d Referral [...] or prosecute any alcohol or drug abuse patient.[facility] CenterIn the event this information is protected by the Federal Confidentiality of Alcohol and Drug Abuse Patient Records regulations: The Federal rules restrict any use of the information to criminally investigate or prosecute any alcohol or drug abuse patient.[facility] CenterIn the event this information is protected by the Federal Confidentiality of Alcohol and Drug Abuse Patient Records regulations: The Federal rules restrict any use of the information to criminally investigate or prosecute any alcohol or drug abuse patient.[facility] CenterIn the event this information is protected by the Federal Confidentiality of Alcohol and Drug Abuse Patient Records regulations: The Federal rules restrict any use of the information to criminally investigate or prosecute any alcohol or drug abuse patient.[facility] CenterIn the event this information is protected by the Federal Confidentiality of Alcohol and Drug Abuse Patient Records regulations: The Federal rules restrict any use of the information to criminally investigate or prosecute any alcohol or drug abuse patient.[facility] CenterIn the event this information is protected by the Federal Confidentiality of Alcohol and Drug Abuse Patient Records regulations: The Federal rules restrict any use of the information to criminally investigate or prosecute any alcohol or drug abuse patient.[facility] CenterIn the event this information is protected by the Federal Confidentiality of Alcohol and Drug Abuse Patient Records regulations: The Federal rules restrict any use of the information to criminally investigate or prosecute any alcohol or drug abuse patient.[facility] CenterIn the event this information is protected by the Federal Confidentiality of Alcohol and Drug Abuse Patient Records regulations: The Federal rules restrict any use of the information to criminally investigate or prosecute any alcohol or drug abuse patient.[facility] CenterIn the event this information is protected by the Federal Confidentiality of Alcohol and Drug Abuse Patient Records regulations: The Federal rules restrict any use of the information to criminally investigate or prosecute any alcohol or drug abuse patient.[facility] CenterIn the event this information is protected by the Federal Confidentiality of Alcohol and Drug Abuse Patient Records regulations: The Federal rules restrict any use of the information to criminally investigate or prosecute any alcohol or drug abuse patient.[facility] CenterIn the event this information is protected by the Federal Confidentiality of Alcohol and Drug Abuse Patient Records regulations: The Federal rules restrict any use of the information to criminally investigate or prosecute any alcohol or drug abuse patient.[facility] CenterIn the event this information is protected by the Federal Confidentiality of Alcohol and Drug Abuse Patient Records regulations: The Federal rules restrict any use of the information to criminally investigate or prosecute any alcohol or drug abuse patient.[facility] CenterIn the event this information is protected by the Federal Confidentiality of Alcohol and Drug Abuse Patient Records regulations: The Federal rules restrict any use of the information to criminally investigate or prosecute any alcohol or drug abuse patient.[facility] CenterIn the event this information is protected by the Federal Confidentiality of Alcohol and Drug Abuse Patient Records regulations: The Federal rules restrict any use of the information to criminally investigate or prosecute any alcohol or drug abuse patient.[facility] CenterIn the event this information is protected by the Federal Confidentiality of Alcohol and Drug Abuse Patient Records regulations: The Federal rules restrict any use of the information to criminally investigate or prosecute any alcohol or drug abuse patient.[facility] the event this information is protected by the Federal Confidentiality of Alcohol and Drug Abuse Patient Records regulations: The Federal rules restrict any use of the information to criminally investigate or prosecute any alcohol or drug abuse patient.[facility] CenterIn the event this information is protected by the Federal Confidentiality of Alcohol and Drug Abuse Patient Records regulations: The Federal rules restrict any use of the information to criminally investigate or prosecute any alcohol or drug abuse patient.[facility] CenterIn the event this information is protected by the Federal Confidentiality of Alcohol and Drug Abuse Patient Records regulations: The Federal rules restrict any use of the information to criminally investigate or prosecute any alcohol or drug abuse patient.[facility] CenterIn the event this information is protected by the Federal Confidentiality of Alcohol and Drug Abuse Patient Records regulations: The Federal rules restrict any use of the information to criminally investigate or prosecute any alcohol or drug abuse patient.[facility] CenterIn the event this information is protected by the Federal Confidentiality of Alcohol and Drug Abuse Patient Records regulations: The Federal rules restrict any use of the information to criminally investigate or prosecute any alcohol or drug abuse patient.[facility] CenterIn the event this information is protected by the Federal Confidentiality of Alcohol and Drug Abuse Patient Records regulations: The Federal rules restrict any use of the information to criminally investigate or prosecute any alcohol or drug abuse patient.[facility] CenterIn the event this information is protected by the Federal Confidentiality of Alcohol and Drug Abuse Patient Records regulations: The Federal rules restrict any use of the information to criminally investigate or prosecute any alcohol or drug abuse patient.[facility] CenterIn the event this information is protected by the Federal Confidentiality of Alcohol and Drug Abuse Patient Records regulations: The Federal rules restrict any use of the information to criminally investigate or prosecute any alcohol or drug abuse patient.[facility] CenterIn the event this information is protected by the Federal Confidentiality of Alcohol and Drug Abuse Patient Records regulations: The Federal rules restrict any use of the information to criminally investigate or prosecute any alcohol or drug abuse patient.[facility] CenterIn the event this information is protected by the Federal Confidentiality of Alcohol and Drug Abuse Patient Records regulations: The Federal rules restrict any use of the information to criminally investigate or prosecute any alcohol or drug abuse patient.[facility] CenterIn the event this information is protected by the Federal Confidentiality of Alcohol and Drug Abuse Patient Records regulations: The Federal rules restrict any use of the information to criminally investigate or prosecute any alcohol or drug abuse patient.[facility] CenterIn the event this information is protected by the Federal Confidentiality of Alcohol and Drug Abuse Patient Records regulations: The Federal rules restrict any use of the information to criminally investigate or prosecute any alcohol or drug abuse patient.[facility] CenterIn the event this information is protected by the Federal Confidentiality of Alcohol and Drug Abuse Patient Records regulations: The Federal rules restrict any use of the information to criminally investigate or prosecute any alcohol or drug abuse patient.[facility] CenterIn the event this information is protected by the Federal Confidentiality of Alcohol and Drug Abuse Patient Records regulations: The Federal rules restrict any use of the information to criminally investigate or prosecute any alcohol or drug abuse patient.[facility] CenterIn the event this information is protected by the Federal Confidentiality of Alcohol and Drug Abuse Patient Records regulations: The Federal rules restrict any use of the information to criminally investigate or prosecute any alcohol or drug abuse patient.[facility] CenterIn the event this information is protected by the Federal Confidentiality of Alcohol and Drug Abuse Patient Records regulations: The Federal rules restrict any use of the information to criminally investigate or prosecute any alcohol or drug abuse patient.[facility] CenterIn the event this information is protected by the Federal Confidentiality of Alcohol and Drug Abuse Patient Records regulations: The Federal rules restrict any use of the information to criminally investigate or prosecute any alcohol or drug abuse patient.[facility] CenterIn the event this information is protected by the Federal Confidentiality of Alcohol and Drug Abuse Patient Records regulations: The Federal rules restrict any use of the information to criminally investigate or prosecute any alcohol or drug abuse patient.[facility] CenterIn the event this information is protected by the Federal Confidentiality of Alcohol and Drug Abuse Patient Records regulations: The Federal rules restrict any use of the information to criminally investigate or prosecute any alcohol or drug abuse patient.[facility] CenterIn the event this information is protected by the Federal Confidentiality of Alcohol and Drug Abuse Patient Records regulations: The Federal rules restrict any use of the information to criminally investigate or prosecute any alcohol or drug abuse patient.[facility] CenterIn the event this information is protected by the Federal Confidentiality of Alcohol and Drug Abuse Patient Records regulations: The Federal rules restrict any use of the information to criminally investigate or prosecute any alcohol or drug abuse patient.[facility] CenterIn the event this information is protected by the Federal Confidentiality of Alcohol and Drug Abuse Patient Records regulations: The Federal rules restrict any use of the information to criminally investigate or prosecute any alcohol or drug abuse patient.[facility] CenterIn the event this information is protected by the Federal Confidentiality of Alcohol and Drug Abuse Patient Records regulations: The Federal rules restrict any use of the information to criminally investigate or prosecute any alcohol or drug abuse patient.[facility] CenterIn the event this information is protected by the Federal Confidentiality of Alcohol and Drug Abuse Patient Records regulations: The Federal rules restrict any use of the information to criminally investigate or prosecute any alcohol or drug abuse patient.[facility] CenterIn the event this information is protected by the Federal Confidentiality of Alcohol and Drug Abuse Patient Records regulations: The Federal rules restrict any use of the information to criminally investigate or prosecute any alcohol or drug abuse patient.[facility] CenterIn the event this information is protected by the Federal Confidentiality of Alcohol and Drug Abuse Patient Records regulations: The Federal rules restrict any use of the information to criminally investigate or prosecute any alcohol or drug abuse patient.[facility] CenterIn the event this information is protected by the Federal Confidentiality of Alcohol and Drug Abuse Patient Records regulations: The Federal rules restrict any use of the information to criminally investigate or prosecute any alcohol or drug abuse patient.[facility] CenterIn the event this information is protected by the Federal Confidentiality of Alcohol and Drug Abuse Patient Records regulations: The Federal rules restrict any use of the information to criminally investigate or prosecute any alcohol or drug abuse patient.[facility] CenterIn the event this information is protected by the Federal Confidentiality of Alcohol and Drug Abuse Patient Records regulations: The Federal rules restrict any use of the information to criminally investigate or prosecute any alcohol or drug abuse patient.[facility] CenterIn the event this information is protected by the Federal Confidentiality of Alcohol and Drug Abuse Patient Records regulations: The Federal rules restrict any use of the information to criminally investigate or prosecute any alcohol or drug abuse patient.[facility] CenterIn the event this information is protected by the Federal Confidentiality of Alcohol and Drug Abuse Patient Records regulations: The Federal rules restrict any use of the information to criminally investigate or prosecute any alcohol or drug abuse patient.[facility] CenterIn the event this information is protected by the Federal Confidentiality of Alcohol and Drug Abuse Patient Records regulations: The Federal rules restrict any use of the information to criminally investigate or prosecute any alcohol or drug abuse patient.[facility] CenterIn the event this information is protected by the Federal Confidentiality of Alcohol and Drug Abuse Patient Records regulations: The Federal rules restrict any use of the information to criminally investigate or prosecute any alcohol or drug abuse patient.[facility] CenterIn the event this information is protected by the Federal Confidentiality of Alcohol and Drug Abuse Patient Records regulations: The Federal rules restrict any use of the information to criminally investigate or prosecute any alcohol or drug abuse patient.[facility] CenterIn the event this information is protected by the Federal Confidentiality of Alcohol and Drug Abuse Patient Records regulations: The Federal rules restrict any use of the information to criminally investigate or prosecute any alcohol or drug abuse patient.[facility] Reason for Visit (unrecogniz ed section and [...] MDM 30-44 MINUTES CHIROPRAC MANIP,SPINAL,1-2 [facility] [address] [place] [address] [place] [address] Referral ID Status Reason Start Date Expiration Date Visits Requested Visits Authorized [id number] Authorized Benefit Check 07/01/2022 10/03/2022 30 30 Reason Comments Radio Gen HB6 Radio Gen A21 Specialty Diagnoses / Procedures Referred By Contac t Referred To Contact XR IMAGING Diagnoses Chronic bilateral thoracic back pain Procedures XR THORACIC GENERAL 3V AP/LAT/SWIMMERS RADEX SPINE THORACIC 3 VIEWS Wilver Montemay[address] [place] [address] Xr Imaging Referral ID Status Reason Start Date Expiration Date V isits Requested Visits Authorized [id number] Closed Auto-Generate d Referral 07/01/2022 07/31/2023 1 1 Reason Comments Wellness Full back, middle up per Specialty Diagnoses / Procedures Referred By Contac t Referred To Contact Chiropractor / WELLNESS Diagnoses Back pain CONSULT BACK EHP EMP Procedures OFFICE/OUTPATIENT [facility] LOW MDM 30-44 MINUTES CHIROPRAC MANIP,SPINAL,1-2 [facility] CHIROPRACTOR Self [address] [address] [place] [address] Reason Comments Establish Care Reason Comments Vaginal Problem Urinary frequency, l ower abd pain and pressure x4 days Reason Comments Results Reason Comments Patient Update Reason Comments Testing Home test positive; pt seeking confirmation and next steps Reason Comments Care 8W Specialty Diagnoses / Procedures Referred By Contac t Referred To Contact Diagnoses confirmed by positive urine test Procedures CONSULT TO DIRECTOR COMPLIANCE OFFICE/OUTPATIENT [facility] MDM 60-74 MINUTES Maegan Morrissey, MEET [address] [place] [address] Referral ID Status Reason Start Date Expiration Date V isits Requested Visits Authorized [id number] Closed PCP Requested Referral Auto-Generated Referral 11/30/2022 11/30/2023 1 1 Reason Comments Results NIPT Reason Comments Care Reason Comments US Specialty Diagnoses / Procedures Referred By Contac t Referred To Contact [facility] [place] 2] Diagnoses Encounter for screening of mother Procedures OBSTETRIC ULTRASOUND WHI US PREG UTERUS AFTER 1ST TRIMEST [place] [address] [address] [place], [place] [address] [facility] [address] [place] [id number] Referral ID Status Reason Start Date Expiration Date V isits Requested Visits Authorized [id number] Closed Auto-Generate d Referral 01/25/2023 01/25/2024 1 [...] Care Teams (unrecognized sec tion and content) Network Infrastructure Architect Relationship Specialty [place] [address] [place] [address] PCP - General Internal Medicine/Pediatrics 03/31/22 Network Infrastructure Architect Relationship Specialty Start Date End Date Angela Ray MD [address] [place] [address] PCP - General Internal Medicine/Pediatrics 03/31/22 Network Infrastructure Architect Relationship Specialty Start Date End Date Hellen Paez MD [address] [place] [address] PCP - General Internal Medicine 04/12/22 Network Infrastructure Architect Relationship Specialty Start Date End Date Hellen Paez MD [address] [place] [address] PCP - General Internal Medicine 04/12/22 Network Infrastructure Architect Relationship Specialty Start Date End Date Hellen Paez MD [address] [place] [address] PCP - General Internal Medicine 04/12/22 Network Infrastructure Architect Relationship Specialty Start Date End Date Hellen Paez MD [address] [place] [address] PCP - General Internal Medicine 04/12/22 Network Infrastructure Architect Relationship Specialty Start Date End Date Hellen Paez MD [address] [place] [address] PCP - General Internal Medicine 04/12/22 Network Infrastructure Architect Relationship Specialty Start Date End Date Hellen Paez MD [address] [place] [address] PCP - General Internal Medicine 04/12/22 Network Infrastructure Architect Relationship Specialty [place] [address] [place] [address] PCP - General Internal Medicine 04/12/22 Network Infrastructure Architect Relationship Specialty Start [place] [address] [place] [address] PCP - General Internal Medicine 04/12/22 Network Infrastructure Architect Relationship Specialty Start Date End Date Hellen Paez MD [address] [place] [address] PCP - General Internal Medicine 04/12/22 Network Infrastructure Architect Relationship Specialty Start Date End Date Hellen Paez MD [address] [place] [address] PCP - General Internal Medicine 04/12/22 Network Infrastructure Architect Relationship Specialty Start [place] [address] [place] [address] PCP - General Internal Medicine 04/12/22 Network Infrastructure Architect Relationship Specialty Start Date End Date Hellen Paez MD [address] [place] [address] PCP - General Internal Medicine 04/12/22 Network Infrastructure Architect Relationship Specialty Start Date End Date Hellen Paez MD [address] [place] [address] PCP - General Internal Medicine 04/12/22 Network Infrastructure Architect Relationship Specialty Start Date End Date Hellen Paez MD [address] [place] [address] PCP - General Internal Medicine 04/12/22 Network Infrastructure Architect Relationship Specialty Start Date End Date Hellen Paez MD [address] [address] PCP - General Internal Medicine 04/12/22 Network Infrastructure Architect Relationship Specialty Start Date End Date Hellen Paez MD [address] [place] [address] PCP - General Internal Medicine 04/12/22 Network Infrastructure Architect Relationship Specialty Start Date End Date Hellen Paez MD [address] [address] PCP - General Internal Medicine 04/12/22 Network Infrastructure Architect Relationship Specialty Start Date End Date Hellen Paez MD [address] [place] [address] PCP - General Internal Medicine 04/12/22 Network Infrastructure Architect Relationship Specialty Start Date End Date Hellen Paez MD [address] [address] PCP - General Internal Medicine 04/12/22 Network Infrastructure Architect Relationship Specialty Start Date End Date Hellen Paez MD [address] [id number] PCP - General Internal Medicine 04/12/22 Network Infrastructure Architect Relationship Specialty Start Date End Date Hellen Paez MD [address] [place] [address] PCP - General Internal Medicine 04/12/22 Network Infrastructure Architect Relationship Specialty Start Date End Date Hellen Paez MD [address] [address] PCP - General Internal Medicine 04/12/22 Network Infrastructure Architect Relationship Specialty Start Date End Date Hellen Paez MD [address] [address] PCP - General Internal Medicine 04/12/22 Network Infrastructure Architect Relationship Specialty Start Date End Date Hellen Paez MD [address] [address] PCP - General Internal Medicine 04/12/22 Network Infrastructure Architect Relationship Specialty Start Date End Date Hellen Paez MD [address] [address] PCP - General Internal Medicine 04/12/22 Network Infrastructure Architect Relationship Specialty Start Date End Date Hellen Paez MD [address] [place] [address] PCP - General Internal Medicine 04/12/22 Network Infrastructure Architect Relationship Specialty Start Date End Date Hellen Paez MD [address] [address] PCP - General Internal Medicine 04/12/22 Network Infrastructure Architect Relationship Specialty Start Date End Date Hellen Paez MD [address] [address] PCP - General Internal Medicine 04/12/22 Network Infrastructure Architect Relationship Specialty Start Date End Date Hellen Paez MD [address] [address] PCP - General Internal Medicine 04/12/22 Network Infrastructure Architect Relationship Specialty Start Date End Date Hellen Paez MD [address] [id number] PCP - General Internal Medicine 04/12/22 Network Infrastructure Architect Relationship Specialty Start Date End Date Hellen Paez MD [address] [id number] PCP - General Internal Medicine 04/12/22 Network Infrastructure Architect Relationship Specialty Start Date End Date Hellen Paez MD [address] [address] PCP - General Internal Medicine 04/12/22 Network Infrastructure Architect Relationship Specialty Start Date End Date Hellen Paez MD [address] [place] [id number] PCP - General Internal Medicine 04/12/22 Network Infrastructure Architect Relationship Specialty Start Date End Date Hellen Paez MD [address] [place] [phone] PCP - General Internal Medicine 04/12/22 Network Infrastructure Architect Relationship Specialty Start Date End Date Hellen Paez MD [address] [place], [place] [id number] PCP - General Internal Medicine 04/12/22 INFORMATION SOURCE (unrecogn ized section and content) DATE CREATED AUTHOR 11/11/2022 [facility] DATE CREATED AUTHOR AUTHOR'S ORGANIZ ATION 07/25/2023 [facility] DATE CREATED AUTHOR AUTHOR'S ORGANIZ ATION 08/23/2023 [facility] DATE CREATED AUTHOR AUTHOR'S ORGANIZ ATION 12/15/2024 [facility] DATE CREATED AUTHOR AUTHOR'S ORGANIZ ATION 03/01/2025 [facility] DATE CREATED AUTHOR AUTHOR'S ORGANIZ ATION 07/20/2025 [facility] FOR RECORDS PERTAINING TO PATIENTS WHO [...] BE BASED ON THE PRIMARY CLINICAL RECORDS. [facility] [employer] [facility]. provides no warranty or guarantee of the accuracy or completeness of information in this document.
--- NOTE | 2025-07-20 13:20 | BI_ITS ---
EXAM: DIAG MAMM W/CAD, UNILAT 07/20/2025 CLINICAL HISTORY: F, Age 24 y/o , POST US BX CLIP PLACEMENT TECHNIQUE: Procedure Code: [id number] Modality: MG Procedure: DIAG MAMM W/CAD, UNILAT. Tissue clip marker placement. COMPARISON: Prior exam(s) dated prior ultrasound done earlier in the day.. FINDINGS: TISSUE DENSITY: The breasts are heterogeneously dense, which may obscure small masses. Bilateral Breast Mammographic Findings: The tissue clip marker following biopsy is seen in the deep upper lateral aspect of the left breast. BI/DIAG MAMM W/CAD, UNILAT IMPRESSION: A tissue clip marker following the biopsy, is visualized in the deep upper late ral aspect of the left breast. OVERALL FINAL ASSESSMENT BI-RADS 2: BENIGN RECOMMENDATION: Routine annual follow-up in 1 Year Additional Recommendation none A letter with findings and recommendations will be mailed to the patient. Reading Location: [place] [address]
--- NOTE | 2025-07-20 13:20 | BI_ITS ---
EXAM: DIAG MAMM W/CAD, UNILAT 07/20/2025 CLINICAL HISTORY: F, Age 24 y/o , POST US BX CLIP PLACEMENT TECHNIQUE: Procedure Code: [id number] Modality: MG Procedure: DIAG MAMM W/CAD, UNILAT. Tissue clip marker placement. COMPARISON: Prior exam(s) dated prior ultrasound done earlier in the day.. FINDINGS: TISSUE DENSITY: The breasts are heterogeneously dense, which may obscure small masses. Bilateral Breast Mammographic Findings: The tissue clip marker following biopsy is seen in the deep upper lateral aspect of the left breast. BI/DIAG MAMM W/CAD, UNILAT IMPRESSION: A tissue clip marker following the biopsy, is visualized in the deep upper late ral aspect of the left breast. OVERALL FINAL ASSESSMENT BI-RADS 2: BENIGN RECOMMENDATION: Routine annual follow-up in 1 Year Additional Recommendation none A letter with findings and recommendations will be mailed to the patient. Reading Location: [place] [address]
--- NOTE | 2025-07-20 14:12 | PCM.OPRPT ---
Procedures Integumentary [id number]-193xx: [id number] Bx breast 1st lesion us imag Operative Report (Standard) Operative Information Date of Procedure: 07/20/25 Pre-Operative Diagnosis: Abnormal left breast ultrasound Post-Operative Diagnosis: Same Surgery/Procedure Performed: Ultrasound-guided left breast mammotome biopsy air conditioning installer supervisor: No Type of Anesthesia: Local Procedure Start Time: 12:50 Procedure Stop Time: 13:15 Select all DRAINS/GRAFTS/IMPLANTS that apply: None Estimated Blood Loss: Minimal Specimen collected: Yes Description of specimen(s) removed: Left breast tissue Description of surgery: The patient is a 24-year-old female recently seen to the office with a abnormal left breast ultrasound. This revealed a 5 x 8 mm hypoechoic lesion. 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 This was too small to clearly see on ultrasound in the office. As a result this was scheduled to be done in radiology. We discussed the details of the planned procedure and she wished to proceed. The patient was placed supine on the procedure room table. The left breast was scanned by the husbandry technician. The area in question was clearly identified. Biopsy was performed by prepping the breast in the usual sterile manner. Local anesthetic was infiltrated. A small skin incision was made using a #11 blade. The mammotome biopsy device was then inserted under ultrasound guidance and was placed just deep to the lesion in question. Multiple suction biopsies were obtained with good tissue sampling. A marking clip was also then applied/implanted under ultrasound guidance to cathy the location of the biopsy. Overall she tolerated the procedure well. A dressing consisting of Steri-Strips and an OpSite were applied as dressing. Surgical Findings: See procedure note Complications Complications: No Admit VTE Documentation VTE Present on Admission: No VTE Pharm Prophylaxis ordered?: No Reason prophylaxis not ordered: Treatment Not Indicated
--- NOTE | 2025-07-20 14:12 | PCM.OPRPT ---
Procedures Integumentary [id number]-[id number]: [id number] Bx breast 1st lesion us imag Operative Report (Standard) Operative Information Date of Procedure: 07/20/25 Pre-Operative Diagnosis: Abnormal left breast ultrasound Post-Operative Diagnosis: Same Surgery/Procedure Performed: Ultrasound-guided left breast mammotome biopsy dry cleaning checker: No Type of Anesthesia: Local Procedure Start Time: 12:50 Procedure Stop Time: 13:15 Select all DRAINS/GRAFTS/IMPLANTS that apply: None Estimated Blood Loss: Minimal Specimen collected: Yes Description of specimen(s) removed: Left breast tissue Description of surgery: The patient is a 24-year-old female recently seen to the office with a abnormal left breast ultrasound. This revealed a 5 x 8 mm hypoechoic lesion. 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 This was too small to clearly see on ultrasound in the office. As a result this was scheduled to be done in radiology. We discussed the details of the planned procedure and she wished to proceed. The patient was placed supine on the procedure room table. The left breast was scanned by the air launch weapons technician. The area in question was clearly identified. Biopsy was performed by prepping the breast in the usual sterile manner. Local anesthetic was infiltrated. A small skin incision was made using a #11 blade. The mammotome biopsy device was then inserted under ultrasound guidance and was placed just deep to the lesion in question. Multiple suction biopsies were obtained with good tissue sampling. A marking clip was also then applied/implanted under ultrasound guidance to cathy the location of the biopsy. Overall she tolerated the procedure well. A dressing consisting of Steri-Strips and an OpSite were applied as dressing. Surgical Findings: See procedure note Complications Complications: No Admit VTE Documentation VTE Present on Admission: No VTE Pharm Prophylaxis ordered?: No Reason prophylaxis not ordered: Treatment Not Indicated
== END | disposition home or self-care (01) ==
LOC: OPUS 12:03
PROVIDERS: PCP Internal Medicine; Referring Provider Surgery; Visit Provider Surgery
DX: N60.22 Fibroadenosis of left breast (principal); R92.8 Other abnormal and inconclusive findings on diagnostic imaging of breast
CPT/HCPCS: 19083; 77065; 88305

== ENCOUNTER → 2025-07-26 | Outpatient (CLI) | payer MEDICAID, SELFPAY ==
[2025-07-26 12:18] LABS: Hematocrit 40.2 % (37-47); Hemoglobin 13.6 g/dL (12.0-15.0); Immature Granulocytes Count 0.020 X10^3/uL (0.0-0.0); Mean Corp Hgb Conc 33.8 g/dL (32-36); Mean Corpuscular Volume 84.1 fL (81-99); Mean Platelet Vol. 11.0 fl (6.2-12.0); NRBC Flagged by Analyzer 0 % (0-5); Platelet Count 236 K/mm3 (150-450); RBC Distribution Width CV 12.8 % (11.6-14.6); RBC Distribution Width SD 39.0 fl (35.1-43.9); Red Blood Count 4.78 M/mm3 (4.2-5.4); White Blood Count 7.4 K/mm3 (4.4-11.0)
[2025-07-26 14:37] LABS: HIV Nonreactive (Nonreactive); Hepatitis B Surface Antigen Nonreactive (Nonreactive); Hepatitis C Antibody Nonreactive (Nonreactive); Syphilis Antibodies Nonreactive (Nonreactive)
== END | disposition home or self-care (01) ==
LOC: BWCLAB 08:12
PROVIDERS: Obstetrics & Gynecology; PCP Internal Medicine; Visit Provider Advanced Practice Midwife
DX: Z34.81 Encounter for supervision of other normal pregnancy, first trimester (principal)
CPT/HCPCS: 36415; 85025; 86703; 86762; 86780; 86803; 86850; 86900; 86901; 87340

== ENCOUNTER → 2025-08-13 | Outpatient (CLI) | payer MEDICAID, SELFPAY | END | disposition home or self-care (01) | PROVIDERS: PCP Internal Medicine; Referring Provider Advanced Practice Midwife; Visit Provider Advanced Practice Midwife | DX: R10.20 Pelvic and perineal pain unspecified side (principal); N89.8 Other specified noninflammatory disorders of vagina | CPT/HCPCS: 87070; 87086; 87088; 87205 ==

== ENCOUNTER → 2025-08-22 | Outpatient (CLI) | payer MEDICAID, SELFPAY | END | disposition home or self-care (01) | LOC: LABSPEC 11:09 | PROVIDERS: PCP Internal Medicine; Visit Provider Advanced Practice Midwife | DX: O26.899 Other specified pregnancy related conditions, unspecified trimester (principal); R30.0 Dysuria; Z87.440 Personal history of urinary (tract) infections; Z3A.00 Weeks of gestation of pregnancy not specified | CPT/HCPCS: 87086 ==

== ENCOUNTER → 2025-08-24 | Outpatient (CLI) | payer MEDICAID, SELFPAY | END | disposition home or self-care (01) | LOC: LABSPEC 16:44 | PROVIDERS: PCP Internal Medicine; Referring Provider Obstetrics & Gynecology; Visit Provider Obstetrics & Gynecology | DX: O26.899 Other specified pregnancy related conditions, unspecified trimester (principal); R30.0 Dysuria; Z3A.00 Weeks of gestation of pregnancy not specified | CPT/HCPCS: 87086; 87088 ==

== ENCOUNTER → 2025-08-29 | Outpatient (CLI) | payer MEDICAID, SELFPAY | END | disposition home or self-care (01) | LOC: LABSPEC 16:15 | PROVIDERS: PCP Internal Medicine; Referring Provider Obstetrics & Gynecology; Visit Provider Obstetrics & Gynecology | DX: O26.899 Other specified pregnancy related conditions, unspecified trimester (principal); R10.20 Pelvic and perineal pain unspecified side; N89.8 Other specified noninflammatory disorders of vagina; O99.891 Other specified diseases and conditions complicating pregnancy; Z3A.00 Weeks of gestation of pregnancy not specified | CPT/HCPCS: 87070; 87205 ==

== ENCOUNTER 2025-09-03 14:02 | Outpatient (CLI) | payer MEDICAID, SELFPAY ==
[2025-09-03 14:20] VITALS: BP 112/62; PULSE 61; RESP 16; TEMP 36.2; O2SAT 100; BMI 29.2
[2025-09-03] MEDS: 0.9% NaCl Peripheral Flush Adult IV (14:28)
[2025-09-03 15:46] VITALS: BP 124/63; PULSE 95; RESP 18; TEMP 36.4; O2SAT 97
== END 2025-09-03 23:59 | disposition home or self-care (01) ==
LOC: MEDOUTP 14:03
PROVIDERS: PCP Internal Medicine; Referring Provider Obstetrics & Gynecology; Visit Provider Obstetrics & Gynecology
DX: Z34.90 Encounter for supervision of normal pregnancy, unspecified, unspecified trimester (principal); E89.0 Postprocedural hypothyroidism
CPT/HCPCS: 96361; 96374; A4216; J2405

== ENCOUNTER 2025-09-14 13:18 | Outpatient (CLI) | payer MEDICAID, SELFPAY ==
[2025-09-14 13:45] VITALS: BP 143/74; PULSE 82; RESP 16; TEMP 36; O2SAT 99; BMI 29.8
[2025-09-14] MEDS: 0.9% NaCl Peripheral Flush Adult IV (13:54)
[2025-09-14 15:05] VITALS: BP 121/62; PULSE 87; RESP 16; TEMP 36.8; O2SAT 100
== END 2025-09-14 23:59 | disposition home or self-care (01) ==
LOC: MEDOUTP 13:19
PROVIDERS: PCP Internal Medicine; Referring Provider Advanced Practice Midwife; Visit Provider Advanced Practice Midwife
DX: Z00.00 Encounter for general adult medical examination without abnormal findings (principal); E86.0 Dehydration
CPT/HCPCS: 96361; 96374; 36415; A4216; J2405

== ENCOUNTER → 2025-09-14 | Outpatient (CLI) | payer MEDICAID, SELFPAY | END | disposition home or self-care (01) | PROVIDERS: PCP Internal Medicine; Visit Provider Advanced Practice Midwife | DX: Z00.00 Encounter for general adult medical examination without abnormal findings (principal) | CPT/HCPCS: 36415 ==

== ENCOUNTER → 2025-10-01 | Outpatient (CLI) | payer MEDICAID, SELFPAY ==
--- OUTSIDE RECORDS SUMMARY | 2025-10-01 19:53 | XMS RPT_ITS | CCD ---
Author Organization [facility] Care Team Providers Care Reinforced Ironworker Name Role Phone Unavailable Primary Care Provider Unavailalfredo Ray MD, [facility] Primary Care Provider Nallely ÁLVAREZ, Hellen Primary Care Provider Nallely ÁLVAREZ, Hellen Primary Care Provider Nallely ÁLVAREZ, Hellen Primary Care Provider Nallely ÁLVAREZ, Hellen Primary Care Provider Brie EVANS Referring Unavailable LINGANNA, HELLEN Primary Care Unavailable REMI POWELL Referring Unavailable LINGANNA, HELLEN Primary Care Unavailable LINGANNA, HELLEN Primary Care Unavailable RHODA FOSTER Attending Unavailable YODIT FUCHS Admitting Unavailable NoelUPRHODA LONDONO Attending Unavailable RHODA FOSTER Admitting Unavailable LINGANNA, HELLEN Primary Care Unavailable Nallely ÁLVAREZ, Heleln Primary Care Provider ZEKE FISCHER Attending Unavailable ASHLYN HEADLEY Referring Unavailable OLEGHE, EFEWONGBE B Primary Care Unavailable LINGANNA, HELLEN Primary Care Unavailable BHARATHI ESTRADA Referring Unavailable LINGANNA, HELLEN Primary Care Unavailable LINDA MÁRQUEZ Attending Unavailable Oleghe, Efewongbe Referring Unavailable Oleghe, Efewongbe Primary Care Unavailable Tonya Sethi Attending Unavailable Oleghe, Efewongbe Primary Care Unavailable Rosie Stinson Attending Unavailable Oleghe, Efewongbe Primary Care Unavailable Rosie Stinson Referring Unavailable Rosie Stinson Attending Unavailable Oleghe, Efewongbe Referring Unavailable Oleghe, Efewongbe Primary Care Unavailable Rosie Stinson Attending Unavailable Oleghe, Efewongbe Primary Care Unavailable Rosie Stinson Referring Unavailable Rosie Stinson Attending Unavailable Oleghe, Efewongbe Primary Care Unavailable Rosie Stinson Attending Unavailable Oleghe, Efewongbe Primary Care Unavailable Rosie Stinson Referring Unavailable Rosie Stinson Attending Unavailable Oleghe, Efewongbe Primary Care Unavailable Sharmin Hernandez Attending Unavailable Sharmin Hernandez Referring Unavailable BarkSharmin low Attending Unavailable Sharmin Hernandez Referring Unavailable Sharmin [...] Unavailabl e Oleghe, Efewongbe Primary Care Unavailable Jesus Hood Attending Unavailable Jesus Hood Referring Unavailable Rosie Stinson Referring Unavailable Rosie Stinson Attending Unavailable Oleghe, Efewongbe Primary Care Unavailable Jesus Dickey Attending Unavailable Oleghe, Efewongbe Primary Care Unavailable Jesus Hood Consulting Unavailable Jesus Hood Attending Unavailable Jesus Hood Referring Unavailable Oleghe, Efewongbe Referring Unavailable Oleghe, Efewongbe Primary Care Unavailable Jessu Hood Attending Unavailable Oleghe, Efewongbe Referring Unavailable Oleghe, Efewongbe Primary Care Unavailable Ramirez Lerma Attending Unavailable Rosie Stinson Attending Unavailable Care Physician, No Primary Referring Unava ilable Vani Cm Attending Unavailable DosVani fong Attending Unavailable Care Physician, No Primary Referring Unava ilable Rosie Stinson Attending Unavailable Jesus Chong Attending Unavailable Oleghe, Efewongbe Attending Unavailable Jesus Chong Attending Unavailable Oleghe, Efewongbe Primary Care Unavailable Jesus Dickey Attending Unavailable Oleghe, Efewongbe Referring Unavailable Oleghe, Efewongbe Primary Care Unavailable Sharmin Hernandez Attending Unavailable Oleghe, Efewongbe Primary Care Unavailable Jesus Dickey Attending Unavailable DosVani fong Attending Unavailable DosVani fong Referring Unavailable DosVani fong Attending Unavailable Oleghe, Efewongbe Primary Care Unavailable Rachell Hernandezfer Attending Unavailabl e Oleghe, Efewongbe Primary Care Unavailable Rosie Stinson Attending Unavailable Jesus Chong Attending Unavailable Doshetal, Vani Attending Unavailable Dossi, Vani Attending Unavailable DossiVani Attending Unavailable Dossi, Vani Attending Unavailable Oleghe, Efewongbe Referring Unavailable Oleghe, Efewongbe Primary Care Unavailable Ricardo Ordoñez Attending Unavailable Oleghe, Efewongbe Primary Care Unavailable Jesus Britt Attending Unavailable Doshetal, Vani Attending Unavailable Rosie Stinson Attending Unavailable Rosie Stinson Referring Unavailable Oleghe, Efewongbe Primary Care Unavailable Elizabeth Dang Attending Unavailable Elizabeth Dang Referring Unavailable Oleghe, Efewongbe Primary Care Unavailable Ramirez Lerma Attending Unavailable Ramirez Lerma Referring Unavailable Oleghe, Efewongbe Primary Care Unavailable Rosie Stinson Attending Unavailable Oleghe, Efewongbe Primary Care Unavailable Tonya Sethi Attending Unavailable UngereTonya mott Referring Unavailable Oleghe, Efewongbe Primary Care Unavailable Rachell Hernandezfer Attending Unavailabl e Vande VelRachell lópezfer Referring Unavailabl e Oleghe, Efewongbe Primary Care Unavailable Rosie Stinson Attending Unavailable Oleghe, Efewongbe Primary Care Unavailable Rosie Stinson Attending Unavailable Rosie Stinson Referring Unavailable Oleghe, Efewongbe Primary Care Unavailable Sharmin Hernandez Attending Unavailable Oleghe, Efewongbe Primary Care Unavailable Rosie Stinson Attending Unavailable Rosie Stinson Referring Unavailable Sharmin Hernandez Referring Unavailable Sharmin Hernandez Attending Unavailable Oleghe, Efewongbe Primary Care Unavailable Vande Velde Maegan Attending Unavailabl e Oleghe, Efewongbe Referring Unavailable Oleghe, Efewongbe Primary Care Unavailable Rosie Stinson Attending Unavailable Oleghe, Efewongbe Referring Unavailable Oleghe, Efewongbe Primary Care Unavailable Rosie Stinson Attending Unavailable Oleghe, Efewongbe Referring Unavailable Rosie Stinson Referring Unavailable Rosie Stinson Attending Unavailable Oleghe, Efewongbe Primary Care Unavailable Elizabeth Dang Attending Unavailable Elizabeth Dang Referring Unavailable Oleghe, Efewongbe Primary Care Unavailable Rosie Stinson Referring Unavailable Rosie Stinson Attending Unavailable Allergies Allergy Classification Reported Allergen(s) Allergy Type Date of Onset Reaction(s) Facility (1 source) Sertraline Drug Allergy 08-13-2025 [facility] Repository Medications Current Medications Medication Drug Class(es) Dates Sig (Normalized) Sig (Original) azelastine hydrochloride 0.137 mg/actuat metered dose nasal spray (2 sources) Histamine-1 Receptor Antagonist Start: 04-14-2022 End: 05-21-2022 take 1 spray(s) nasal route twice daily azelastine (ASTELIN, ASTEPRO) 0.1% nasal spray Use 1 [place] in each nostril twice daily. 30 mL 2 04/14/2022 05/21/2022 Active Comment on above: Use 1 Oxford in each nostril twice daily. cephalexin 500 [...] sources) Azole Antifungal Start: 01-06-20 End: 01-13-20 clotrimazole (LOTRIMIN) 1 % vaginal cream Use 1 applicatorful vaginally daily at bedtime for 7 days. 45 g 0 01/05/2023 01/12/2023 Active Comment on above: Use 1 applicatorful vaginally daily at bedtime for 7 days. copper 313 mg drug implant (5 sources) Copper-containing Intrauterine Device Start: 10-02-20 End: 09-29-20 33 copper (PARAGARD) 380 square [...] on above: Take 1 Lozenge by mo [facility] every 3 hours as needed. Blood Pressure [...] Comment on above: [facility]. cetirizine hydrochloride 10 mg oral tablet (20 sources) Histamine-1 Receptor Antagonist Start: 03-31-20 End: 02-03-20 23 take 1 tablet by mouth once daily [...] anxiety/panic attacks Take 1 capsule by mo [facility] once daily as needed. ibuprofen 600 mg [...] on above: Take 2 tablets by mo [facility] three times daily as needed. [id number]-xsvo-OO-j2-nzh-t pa-fish 27 mg iron-800 mcg-260 mg (11 sources) Start: 12-01-19 take 1 capsule by mouth once daily SGY420-[id number]-BK-p4-rkb- epa-fish 27 mg iron-800 mcg-260 mg Take 1 capsule by mouth once daily. 30 capsule 2 12/01/2022 Active Comment on above: Take 1 capsule by mo [facility] once daily. Vitamin w/ Iron ( VITAMIN [...] sodium chloride 0.65 % drop Use 1 Oxford in the nose. 0 05/21/2020 07/17/2022 Discontinued (Course of therapy completed) Comment on above: Use 1 Oxford in the n ose. ulipristal acetate 30 [...] disorder; Translations: [Post-traumatic stress disorder, unspecified] Onset: 08-13-2025 Chronic Complication of device; implant or graft [...] Translations: [Other abnormal findings in urine] Onset: 08-13-2025 Episodic Headache; including migraine (1 source) Headache; [...] source) Other fatigue; Translations: [Other fatigue] Onset: 08-13-2025 Episodic Menstrual disorders (1 source) Amenorrhea, unspecified; Translations: [Amenorrhea, unspecified] Onset: 08-13-2025 Chronic Miscellaneous mental health disorders (2 sources) Primary insomnia; Translations: [Primary insomnia] Chronic Mood disorders (20 sources) Cyclothymia; 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] Onset: 07-17-2022 Chronic Mood disorders (1 source) Mood disorders; Translations: [Depression, unspecified] Onset: 08-13-2025 Mycoses (1 source) Candidiasis of vagina; Translations: [Candidal vaginitis] Episodic Nonmalignant breast conditions (4 sources) Unspecified lump in the left breast, unspecified quadrant; Translations: [Unspecified lump in unspecified breast] Onset: 07-03-2025 Episodic Nutritional deficiencies (20 sources) Undernutrition; Translations: [Mild protein-calorie malnutrition] Onset: 04-12-2022 Resolved: 01-24-2024 04-12-2022 Chronic Other bone disease and musculoskeletal deformities (1 source) Other idiopathic scoliosis, thoracolumbar region; Translations: [Other idiopathic scoliosis, thoracolumbar region] Onset: 08-13-2025 Chronic Other bone disease and musculoskeletal deformities (1 source) Segmental and somatic dysfunction of cervical region; Translations: [Segmental and somatic dysfunction of cervical region] Onset: 08-13-2025 Episodic Other bone disease and musculoskeletal deformities (1 source) Segmental and somatic dysfunction of lumbar region; Translations: [Segmental and somatic dysfunction of lumbar region] Onset: 08-13-2025 Episodic Other bone disease and musculoskeletal deformities (1 source) Segmental and somatic dysfunction of pelvic region; Translations: [Segmental and somatic dysfunction of pelvic region] Onset: 08-13-2025 Episodic Other bone disease and musculoskeletal deformities (1 source) Segmental and somatic dysfunction of thoracic region; Translations: [Segmental and somatic dysfunction of thoracic region] Onset: 08-13-2025 Episodic Other complications of (1 source) Supervision of high risk , unspecified, unspecified trimester; Translations: [Supervision of high risk , unspecified, unspecified trimester] Onset: 08-13-2025 Episodic Other connective tissue disease (1 source) Other enthesopathies, not elsewhere classified; Translations: [Other enthesopathies, not elsewhere classified] Onset: 08-13-2025 Episodic Other female genital disorders (1 source) Abnormal uterine bleeding; Translations: [Abnormal uterine and vaginal bleeding, unspecified] 01-24-2024 Chronic Other female genital disorders (1 source) Deep dyspareunia; Translations: [Deep dyspareunia] Onset: 08-13-2025 Chronic Other female genital disorders (2 sources) [...] conditions (not mental disorders or infectious disease) (7 sources) Possible ; Translations: [Encounter for test, [...] of , childbirth and the puerperium] Onset: 08-13-2025 Episodic Residual codes; unclassified (1 source) Family history of other congenital malformations, deformations and chromosomal abnormalities; Translations: [Family history of other congenital malformations, deformations and chromosomal abnormalities] Onset: 08-13-2025 Episodic Residual codes; unclassified (1 source) 12 weeks gestation of ; Translations: [12 weeks gestation of ] Onset: 08-13-2025 Episodic Residual codes; unclassified (1 source) 8 [...] spontaneous without complication] Onset: 05-22-2025 Episodic Unclassified (2 sources) Pelvic and perineal pain unspecified side; Translations: [Pelvic and perineal pain unspecified side] Onset: 08-13-2025 Unclassified (1 source) Low back pain, unspecified; Translations: [Low back pain, unspecified] Onset: 08-13-2025 Urinary tract infections (1 source) Acute cystitis; [...] Translations: [Unspecified maternal hypertension, third trimester] Onset: 10-23-2023 Resolved: 01-24-2024 06-25-2023 Chronic Hypertension complicating ; [...] Name Value Interpretation Reference Range Facil ity Genital Culture Comprehensiv taqureia 08-15-2025 VAC Reason for Exam: Vag inal irritation Further studies to follow. Genital Culture Comprehensive Genital Culture Comprehensive Presumptive C albicans Amount Growth 2+ Normal [facility] Comment on above: Performed By: #### M 100.3200, M1.1999, ####[facility] [address] [place], [address] Urine Cultureon 08-14-2025 URC Culture exhibits no growth. Normal [facility] Comment on above: Performed By: #### M 100.3200, M100.1999, M10 ####[facility] [address] [place], [address] Gram Stainon 08-13-2025 GS Reason for Exam: Vag inal irritation Gram Stain 1+ White Blood Cells 4+ Gram positive rods No Gram negative diplococci Score = 0 Interpretation: 0-3 Normal, 4-6 Intermediate, 7-10 Positive BV Normal [facility] Comment on above: Performed By: #### M 100.3200, M100.2000, M100.2200 ####[facility] [address] [place], [address] Cell Operator Office Visit Reporton 08-13-2025 Cell Operator Office Visit Report Normal [facility] Inital Evaluation (1) - PTon 07-31-2025 Inital Evaluation (1) - PT Normal [facility] CBC W/Diff, Automatedon 07-05 Absolute Lymph 0.88 X10 3/uL Normal 0.83-4.51 [facility] Comment on above: Performed By: #### L 3890.6301, L509.4006, L3890.6102, L100.0100, BTS, L900.0098, L509.8002, L3890.6006 ####[facility] [address] [place], [address] Absolute Neut 6.0 X10 3/uL Normal 2.0-7.7 [facility] Comment on above: Performed By: #### L 3890.6301, L509.4006, L3890.6102, L100.0100, BTS, L900.0098, L509.8002, L3890.6006 ####[facility] [address] [place], [address] Basophils/100 WBC (Bld) 0.3 % Normal 0-1 [facility] Comment on above: Performed By: #### L 3890.6301, L509.4006, L3890.6102, L100.0100, BTS, L900.0098, L509.8002, L3890.6006 ####[facility] [address] [place], [address] Eosinophils/100 WBC (Bld) 0.5 % Normal 0-5 [facility] Comment on above: Performed By: #### L 3890.6301, L509.4006, L3890.6102, L100.0100, BTS, L900.0098, L509.8002, L3890.6006 ####[facility] [address] [place], [address] Erythrocyte distribution width (RBC) [Ratio] 12.8 % Normal 11.6-14.6 [facility] Comment on above: Performed By: #### L 3890.6301, L509.4006, L3890.6102, L100.0100, BTS, L900.0098, L509.8002, L3890.6006 ####[facility] [address] [place], [address] Hematocrit (Bld) [Volume fraction] 40.2 % Normal 37-47 [facility] Comment on above: Performed By: #### L 3890.6301, L509.4006, L3890.6102, L100.0100, BTS, L900.0098, L509.8002, L3890.6006 ####[facility] [address] [place], [address] Hemoglobin (Bld) [Mass/Vol] 13.6 g/dL Normal 12.0-15.0 [facility] Comment on above: Performed By: #### L 3890.6301, L509.4006, L3890.6102, L100.0100, BTS, L900.0098, L509.8002, L3890.6006 ####[facility] [address] [place], [address] IG% 0.300 Normal 0.0-0.9 [facility] Comment on above: Result Comment: IG% - Immature Granulocytes (promyelocytes, myelocytes andmetamyelocytes) > 1% indicates that a LEFT SHIFT is Present. Performed By: #### L 3890.6301, L509.4006, L3890.6102, L100.0100, BTS, L900.0098, L509.8002, L3890.6006 ####[facility] [address] [place], [address] Lymphocytes/100 WBC (Bld) 11.9 % Low 19-41 [facility] Comment on above: Performed By: #### L 3890.6301, L509.4006, L3890.6102, L100.0100, BTS, L900.0098, L509.8002, L3890.6006 ####[facility] [address] [place], [address] MCH (RBC) [Entitic mass] 28.5 pg Normal 27.0-32.0 [facility] Comment on above: Performed By: #### L 3890.6301, L509.4006, L3890.6102, L100.0100, BTS, L900.0098, L509.8002, L3890.6006 ####[facility] [address] [place], [address] MCHC (RBC) [Mass/Vol] 33.8 g/dL Normal 32-36 [facility] Comment on above: Performed By: #### L 3890.6301, L509.4006, L3890.6102, L100.0100, BTS, L900.0098, L509.8002, L3890.6006 ####[facility] [address] [place], [address] MCV (RBC) [Entitic vol] 84.1 fL Normal 81-99 [facility] Comment on above: Performed By: #### L 3890.6301, L509.4006, L3890.6102, L100.0100, BTS, L900.0098, L509.8002, L3890.6006 ####[facility] [address] [place], [address] Monocytes/100 WBC (Bld) 5.7 % Normal 0-10 [facility] Comment on above: Performed By: #### L 3890.6301, L509.4006, L3890.6102, L100.0100, BTS, L900.0098, L509.8002, L3890.6006 ####[facility] [address] [place], [address] Neutrophils/100 WBC (Bld) 81.3 % High 47-70 [facility] Comment on above: Performed By: #### L 3890.6301, L509.4006, L3890.6102, L100.0100, BTS, L900.0098, L509.8002, L3890.6006 ####[facility] [address] [place], [address] Nucleated RBC (Bld) [#/Vol] 0 10*3/uL Normal 0-5 [facility] Comment on above: Performed By: #### L 3890.6301, L509.4006, L3890.6102, L100.0100, BTS, L900.0098, L509.8002, L3890.6006 ####[facility] [address] [place], [address] Platelet mean volume (Bld) [Entitic vol] 11.0 fL Normal 6.2-12.0 [facility] Comment on above: Performed By: #### L 3890.6301, L509.4006, L3890.6102, L100.0100, BTS, L900.0098, L509.8002, L3890.6006 ####[facility] [address] [place], [address] Platelets (Bld) [#/Vol] 236 10*3/uL Normal 150-450 [facility] Comment on above: Performed By: #### L 3890.6301, L509.4006, L3890.6102, L100.0100, BTS, L900.0098, L509.8002, L3890.6006 ####[facility] [address] [place], [address] RBC (Bld) [#/Vol] 4.78 10*6/uL Normal 4.2-5.[address] [facility] Comment on above: Performed By: #### L 3890.6301, L509.4006, L3890.6102, L100.0100, BTS, L900.0098, L509.8002, L3890.6006 ####[facility] [address] [place], [address] RDW SD 39.0 fl Normal 35.1-43.9 [facility] Comment on above: Performed By: #### L 3890.6301, L509.4006, L3890.6102, L100.0100, BTS, L900.0098, L509.8002, L3890.6006 ####[facility] [address] [place], [address] WBC (Bld) [#/Vol] 7.4 10*3/uL Normal 4.4-11.0 [facility] Comment on above: Performed By: #### L 3890.6301, L509.4006, L3890.6102, L100.0100, BTS, L900.0098, L509.8002, L3890.6006 ####[facility] [address] [place], [address] HIVon 07-26-2025 HIV Non-Reactive Normal Nonreactive [facility] Comment on above: Result Comment: Non- ReactiveReactiveRepeatedly reactive samples must be confirmed according [facility] recommended confirmatory algorithms. The subresults foreither HIVAG or AHIV can be used as an aid in the selectionof the confirmation algorithm for reactive samples.Send out specimens with Reactive results to [facility] forconfirmation.Order the HIV antibody detection and differentiation:lc#[id number] Performed By: #### L 3890.6301, L509.4006, L3890.6102, L100.0100, BTS, L900.0098, L509.8002, L3890.6006 ####[facility] [address] [facility] [place], [place], [id number] Hepatitis C Antibodyon 07-26 Hepatitis C Ab Non-Reactive Normal Nonreactive [facility] Comment on above: Result Comment: Reac tive: Presumptive evidence of antibodies to HCV. [facility] for supplemental testing.Non-Reactive: Antibodies to HCV were not detected; does notexclude the possibility of exposure to HCVReactive Results are presumptive evidence of antibodies toHCV. Follow CDC recommendations for supplemental testing.Order confirmation testing: HCV Quant by PCR testing -[facility] #[id number] Non Reactive: < 0.8 Equivocal: >/= 0.8 to < 1.0 Reactive: >/= 1.0The CDC requires that a reactive/equivocal HCV antibodyresult be sent out for confirmation. HCV Quant by PCRtesting. Performed By: #### L 3890.6301, L509.4006, L3890.6102, L100.0100, BTS, L900.0098, L509.8002, L3890.6006 ####[facility] [address] [facility] [place], [address] L3890.6102on 07-26-2025 HEP B Surf Ag Non-Reactive Normal Nonreactive [facility] Comment on above: Result Comment: Reac tive: Presumptive evidence of HBV. Repeatedly reactivesamples must be confirmed using a neutralization test([employer] HBsAg Confirmatory Test)Non-Reactive: HBsAg not detected; does not exclude thepossibility of exposure to HBV Performed By: #### L 3890.6301, L509.4006, L3890.6102, L100.0100, BTS, L900.0098, L509.8002, L3890.6006 ####[facility] [address] [place], [address] L509.4006on 07-26-2025 Rubella IgG REAC Normal Nonreactive [facility] Comment on above: Result Comment: Anti body Result: InterpretationNon-Reactive: Non-ImmuneReactive: ImmuneThe following results were obtained with the ElecsysRubella IgG assay. Results from assays of othermanufacturers cannot be used interchangeably. Performed By: #### L 3890.6301, L509.4006, L3890.6102, L100.0100, BTS, L900.0098, L509.8002, L3890.6006 ####[facility] [address] [place], [place], [id number] NATERAon 07-26-2025 NATURA SEE SCANNED REPORT Normal [facility] Comment on above: Order Comment: Comme nts: NIPT with gender carrier testing Performed By: #### L 3890.6301, L509.4006, L3890.6102, L100.0100, BTS, L900.0098, L509.8002, L3890.6006 ####[facility] [address] [place], [place], [id number] Syphilis Antibodieson 2024 Syphilis Abs Non-Reactive Normal Nonreactive [facility] Comment on above: Performed By: #### L 3890.6301, L509.4006, L3890.6102, L100.0100, BTS, L900.0098, L509.8002, L3890.6006 ####[facility] [address] [place], [place], [id number] Type AND Screenon 07-26-2025 Ab SCREEN GEL Negative Normal [facility] Comment on above: Order Comment: PN Performed By: #### L 3890.6301, L509.4006, L3890.6102, L100.0100, BTS, L900.0098, L509.8002, L3890.6006 ####[facility] [address] [place], [address] DIAG MAMM W/CAD, UNILATon DIAG MAMM W/CAD, UNILAT Normal [facility] Operative Reporton Operative Report Normal [facility] Surgery Specimen Level Tadeo 07-20-2025 Surgery Specimen Level IV Normal [facility] Comment on above: Performed By: #### P SUIV ####[facility] [address] [place], [address] US Breast Biopsy 1st Lesiono n 07-20-2025 US Breast Biopsy 1st Lesion Normal [facility] Chlamydia/GC TESS aptimaon CHLAMY,NUC ACID Negative Normal Negative [facility] Comment on above: Performed By: #### L 7000.1800, M1.0 ####[facility] [address] [place], [address] GC BY NUC ACID Negative Normal Negative [facility] Comment on above: Result Comment: Perf ormed at: =G - [facility] [address] [id number] Director: Sylvie Dykes MD, Phone: [phone] Performed By: #### L 7000.1800, M1.2200 ####[facility] [address] [place], [address] Urine Cultureon 07-18-2025 URC Below infection leve l. Mixed Gram Positive Organisms [place] Count 1000-10,000 MIXC Mixed contaminants. Submit a new specimen if indicated. Normal [facility] Comment on above: Performed By: #### L 7000.1800, M100.2200 ####[facility] [address] [place], [address] Cell Operator Office Visit Reporton 07-16-2025 Cell Operator Office Visit Report Normal [facility] Office Visit Reporton 2024 Office Visit Report Normal [facility] hCG Titer Quant., Serumon HCG QUANT. 88686 mIU/mL High <9 non-preg [facility] Comment on above: Result Comment: Gest ational Age0.2-1 Week: 5-50 mIU/mL1-2 Weeks: 50-500 mIU/mL2-3 Weeks: 100-5000 mIU/mL3-4 Weeks: 500-10,000 mIU/mL4-5 Weeks:1000-50,000 mIU/mL5-6 Weeks: 10,000-100,000 mIU/mL6-8 Weeks: 15,000-200,000 mIU/mL2-3 Months:10,000-100,000 mIU/mL Performed By: #### L 700.8000 ####[facility] [address] [place], [place], [id number] hCG Titer Quant., Serumon HCG QUANT. 21915 mIU/mL High <9 non-preg [facility] Comment on above: Result Comment: Gest ational Age0.2-1 Week: 5-50 mIU/mL1-2 Weeks: 50-500 mIU/mL2-3 Weeks: 100-5000 mIU/mL3-4 Weeks: 500-10,000 mIU/mL4-5 Weeks:1000-50,000 mIU/mL5-6 Weeks: 10,000-100,000 mIU/mL6-8 Weeks: 15,000-200,000 mIU/mL2-3 Months:10,000-100,000 mIU/mL Performed By: #### L 700.8000 ####[facility] [address] [place], [place], [id number] Init OB < 14Wks USon 025 Init OB < 14Wks US Normal [facility] Surgery Visit Reporton 06-26 Surgery Visit Report Normal [facility] hCG Titer Quant., Serumon HCG QUANT. 1203 mIU/mL High <9 non-preg [facility] Comment on above: Result Comment: Gest ational Age0.2-1 Week: 5-50 mIU/mL1-2 Weeks: 50-500 mIU/mL2-3 Weeks: 100-5000 mIU/mL3-4 Weeks: 500-10,000 mIU/mL4-5 Weeks:1000-50,000 mIU/mL5-6 Weeks: 10,000-100,000 mIU/mL6-8 Weeks: 15,000-200,000 mIU/mL2-3 Months:10,000-100,000 mIU/mL Performed By: #### L 700.8000 ####[facility] [address] [place], [place], [id number] Breast Limited Unilateralon 06-19-2025 Breast Limited Unilateral Normal [facility] hCG Titer Quant., Serumon HCG QUANT. 556 mIU/mL High <9 non-preg [facility] Comment on above: Result Comment: Gest ational Age0.2-1 Week: 5-50 mIU/mL1-2 Weeks: 50-500 mIU/mL2-3 Weeks: 100-5000 mIU/mL3-4 Weeks: 500-10,000 mIU/mL4-5 Weeks:1000-50,000 mIU/mL5-6 Weeks: 10,000-100,000 mIU/mL6-8 Weeks: 15,000-200,000 mIU/mL2-3 Months:10,000-100,000 mIU/mL Performed By: #### L 700.8000 ####[facility] [address] [place], [place], [id number] Orthopedic Visit Reporton Orthopedic Visit Report Normal [facility] Wrist min 3 Viewson 06-18-20 25 Wrist min 3 Views Normal [facility] MR/BMS.BPon 06-13-2025 MR/BMS.BP Normal [facility] Cell Operator Office Visit Reporton 06-11-2025 Cell Operator Office Visit Report Normal [facility] Brain W/WO Contraston 2024 Brain W/WO Contrast Normal [facility] MR/BMS.BPon 05-21-2025 MR/BMS.BP Normal [facility] Genital Culture Comprehensiv taqueria 05-20-2025 VAC Reason for Exam: Vag inal Discharge Normal vaginal kathy isolated. No yeast, Gardnerella, Neisseria or beta-hemolytic Streptococcus isolated. Normal [facility] Comment on above: Performed By: #### M 100.1999, M100.3200 ####[facility] [address] [place], [address] Gram Stainon 05-18-2025 GS Reason for Exam: Vag inal Discharge Gram Stain 1+ Epithelial cells 4+ Gram positive rods No Gram negative diplococci Score = 0 Interpretation: 0-3 Normal, 4-6 Intermediate, 7-10 Positive BV Normal [facility] Comment on above: Performed By: #### M 100.1999, M100.3200 ####[facility] [address] [place], [address] Internal Medicine Office Vis iton 05-11-2025 Internal Medicine Office Visit Normal [facility] Bedside Glucoseon 05-10-2025 FINGERSTICK GLU 88 mg/dL Normal 74-106 [facility] Comment on above: Result Comment: FLEX SANTOS OF PATIENT CARE PER NURSING PROTOCOL Performed By: #### L 501.080 ####[facility] [address] [place], [address] CBC W/Diff, Automatedon Absolute Lymph 0.22 X10 3/uL Low 0.83-4.51 [facility] Comment on above: Performed By: #### L 500.4050, L100.0100 ####[facility] [address] [place], [address] Absolute Neut 9.2 X10 3/uL High 2.0-7.7 [facility] Comment on above: Performed By: #### L 500.4050, L100.0100 ####[facility] [address] [place], [address] Basophils/100 WBC (Bld) 0.2 % Normal 0-1 [facility] Comment on above: Performed By: #### L 500.4050, L100.0100 ####[facility] [address] [place], [address] Eosinophils/100 WBC (Bld) 0.3 % Normal 0-5 [facility] Comment on above: Performed By: #### L 500.4050, L100.0100 ####[facility] [address] [place], [address] Erythrocyte distribution width (RBC) [Ratio] 12.2 % Normal 11.6-14.6 [facility] Comment on above: Performed By: #### L 500.4050, L100.0100 ####[facility] [address] [place], [address] Hematocrit (Bld) [Volume fraction] 43.9 % Normal 37-47 [facility] Comment on above: Performed By: #### L 500.4050, L100.0100 ####[facility] [address] [place], [address] Hemoglobin (Bld) [Mass/Vol] 14.6 g/dL Normal 12.0-15.0 [facility] Comment on above: Performed By: #### L 500.4050, L100.0100 ####[facility] [address] [place], [address] IG% 0.200 Normal 0.0-0.9 [facility] Comment on above: Result Comment: IG% - Immature Granulocytes (promyelocytes, myelocytes andmetamyelocytes) > 1% indicates that a LEFT SHIFT is Present. Performed By: #### L 500.4050, L100.0100 ####[facility] [address] [place], [address] Lymphocytes/100 WBC (Bld) 2.2 % Low 19-41 [facility] Comment on above: Performed By: #### L 500.4050, L100.0100 ####[facility] [address] [place], [address] MCH (RBC) [Entitic mass] 28.5 pg Normal 27.0-32.0 [facility] Comment on above: Performed By: #### L 500.4050, L100.0100 ####[facility] [address] [place], [address] MCHC (RBC) [Mass/Vol] 33.3 g/dL Normal 32-36 [facility] Comment on above: Performed By: #### L 500.4050, L100.0100 ####[facility] [address] [place], [address] MCV (RBC) [Entitic vol] 85.6 fL Normal 81-99 [facility] Comment on above: Performed By: #### L 500.4050, L100.0100 ####[facility] [address] [place], [address] Monocytes/100 WBC (Bld) 3.9 % Normal 0-10 [facility] Comment on above: Performed By: #### L 500.4050, L100.0100 ####[facility] [address] [place], [address] Neutrophils/100 WBC (Bld) 93.2 % High 47-70 [facility] Comment on above: Performed By: #### L 500.4050, L100.0100 ####[facility] [address] [place], [address] Nucleated RBC (Bld) [#/Vol] 0 10*3/uL Normal 0-5 [facility] Comment on above: Performed By: #### L 500.4050, L100.0100 ####[facility] [address] [place], [address] Platelet mean volume (Bld) [Entitic vol] 10.8 fL Normal 6.2-12.0 [facility] Comment on above: Performed By: #### L 500.4050, L100.0100 ####[facility] [address] [place], [address] Platelets (Bld) [#/Vol] 185 10*3/uL Normal 150-450 [facility] Comment on above: Performed By: #### L 500.4050, L100.0100 ####[facility] [address] [place], [address] RBC (Bld) [#/Vol] 5.13 10*6/uL Normal 4.2-5.[address] [facility] Comment on above: Performed By: #### L 500.4050, L100.0100 ####[facility] [address] [place], [address] RDW SD 38.1 fl Normal 35.1-43.9 [facility] Comment on above: Performed By: #### L 500.4050, L100.0100 ####[facility] [address] [place], [address] WBC (Bld) [#/Vol] 9.9 10*3/uL Normal 4.4-11.0 [facility] Comment on above: Performed By: #### L 500.4050, L100.0100 ####[facility] [address] [place], [address] Comprehensive Metabolic Prof [facility] 05-10-2025 Albumin [Mass/Vol] 4.3 g/dL Normal 3.5-5.0 [facility] Comment on above: Performed By: #### L 500.4050, L100.0100 ####[facility] [address] [place], [address] Albumin/Globulin [Mass ratio] 1.7 {ratio} Normal 0.9-2.4 [facility] Comment on above: Performed By: #### L 500.4050, L100.0100 ####[facility] [address] [place], [address] ALK PHOS 95 U/L Normal 35-104 [facility] Comment on above: Performed By: #### L 500.4050, L100.0100 ####[facility] [address] [place], [address] ALT [Catalytic activity/Vol] 11 U/L Normal <=34 [facility] Comment on above: Performed By: #### L 500.4050, L100.0100 ####[facility] [address] [place], [address] AST [Catalytic activity/Vol] 17 U/L Normal <=31 [facility] Comment on above: Performed By: #### L 500.4050, L100.0100 ####[facility] [address] [place], [address] Bilirubin [Mass/Vol] 0.38 mg/dL Normal 0.00-1.30 [facility] Comment on above: Performed By: #### L 500.4050, L100.0100 ####[facility] [address] [place], [address] BUN/CRE 27.2 RATIO High 10-20 [facility] Comment on above: Performed By: #### L 500.4050, L100.0100 ####[facility] [address] [place], [address] Calcium [Mass/Vol] 8.7 mg/dL Normal 7.6-11.0 [facility] Comment on above: Performed By: #### L 500.4050, L100.0100 ####[facility] [address] [place], [address] Chloride [Moles/Vol] 104 mmol/L Normal 98-108 [facility] Comment on above: Performed By: #### L 500.4050, L100.0100 ####[facility] [address] [place], [address] CO2 [Moles/Vol] 24.6 mmol/L Normal 21.0-32.0 [facility] Comment on above: Performed By: #### L 500.4050, L100.0100 ####[facility] [address] [place], [address] Creatinine [Mass/Vol] 0.63 mg/dL Low 0.70-1.20 [facility] Comment on above: Performed By: #### L 500.4050, L100.0100 ####[facility] [address] [place], [address] GAP 10 Normal 5-15 [facility] Comment on above: Performed By: #### L 500.4050, L100.0100 ####[facility] [address] [place], [address] GFR/1.73 sq M.predicted among non-blacks MDRD (S/P/Bld) [Vol rate/Area] 128 mL/min/{1.73_m2} Normal >60 [facility] Comment on above: Result Comment: mL/m in/1.73m2 CKD-EPI Creatinine Equation (2020) Performed By: #### L 500.4050, L100.0100 ####[facility] [address] [place], [address] Globulin (S) [Mass/Vol] 2.5 g/dL Normal 2.2-4.2 [facility] Comment on above: Performed By: #### L 500.4050, L100.0100 ####[facility] [address] [place], [address] Glucose [Mass/Vol] 99 mg/dL Normal 70-99 [facility] Comment on above: Performed By: #### L 500.4050, L100.0100 ####[facility] [address] [place], [address] Potassium [Moles/Vol] 4.1 mmol/L Normal 3.3-5.1 [facility] Comment on above: Performed By: #### L 500.4050, L100.0100 ####[facility] [address] [place], [address] Sodium [Moles/Vol] 139 mmol/L Normal 133-145 [facility] Comment on above: Performed By: #### L 500.4050, L100.0100 ####[facility] [address] [place], [address] T PROT 6.7 g/dL Normal 5.9-8.4 [facility] Comment on above: Performed By: #### L 500.4050, L100.0100 ####[facility] [address] [place], [address] Urea nitrogen [Mass/Vol] 17 mg/dL Normal 4-19 [facility] Comment on above: Performed By: #### L 500.4050, L100.0100 ####[facility] [address] [place], [address] Transvaginal Non-on 05-09-2025 Transvaginal Non- Normal [facility] Cell Operator Office Visit Reporton 05-08-2025 Cell Operator Office Visit Report Normal [facility] Elbow min 3 Viewson 05-07-20 25 Elbow min 3 Views Normal [facility] Office Visit Reporton 2024 Office Visit Report Normal [facility] Anticardiolipin IgG, IgMon 0 05-02-2025 ANTICARDIO IgG < 9 Normal 0-14 [facility] Comment on above: Result Comment: Nega tive: <15 Indeterminate: 15 - 20 Low-Med Positive: >20 - 80 High Positive: >80 Performed By: #### L 3410.2000, L3100.8410, L700.8000, L501.9520, L4500.0100, L501.9985 ####[facility] [address] [place], [place], [id number] Anticardio.IgM < 9 Normal 0-12 [facility] Comment on above: Result Comment: Nega tive: <13 Indeterminate: 13 - 20 Low-Med Positive: >20 - 80 High Positive: >80Performed at: [facility] [address] [id number] Director: Narinder Pathak MD, Phone: [phone] at: [facility] [address] [id number] Director: Adán Robertson PhD, Phone: [phone] Performed By: #### L 3410.1999, L3100.8410, L700.8000, L501.9520, L4500.0100, L501.9985 ####[facility] [address] [place], [place], [id number] Beta-2 Glycoprot IgG, A, 05-02-2025 B2 GLYCO I IGA <9 Normal 0-25 [facility] Comment on above: Result Comment: Resu lt Units: GPI IgA unitsThe reference interval reflects a 3SD or 99th percentileinterval, which is thought to represent a potentiallyclinically significant result in accordance with theInternational Consensus Statement on the classificationcriteria for definitive antiphospholipid syndrome (APS). JThromb Haem 2006;4:295-306. Performed By: #### L 3410.1999, L3100.8410, L700.8000, L501.9520, L4500.0100, L501.9985 ####[facility] [address] [place], [place], [id number] B2 GLYCO I IGG <9 Normal 0-20 [facility] Comment on above: Result Comment: Resu lt Units: GPI IgG unitsThe reference interval reflects a 3SD or 99th percentileinterval, which is thought to represent a potentiallyclinically significant result in accordance with theInternational Consensus Statement on the classificationcriteria for definitive antiphospholipid syndrome (APS). JThromb Haem 2006;4:295-306. Performed By: #### L 3410.2000, L3100.8410, L700.8000, L501.9520, L4500.0100, L501.9985 ####[facility] [address] [place], [address] B2 GLYCO I IGM <9 Normal 0-32 [facility] Comment on above: Result Comment: Resu lt Units: GPI IgM unitsThe reference interval reflects a 3SD or 99th percentileinterval, which is thought to represent a potentiallyclinically significant result in accordance with theInternational Consensus Statement on the classificationcriteria for definitive antiphospholipid syndrome (APS). JThromb Haem 2006;4:295-306. Performed By: #### L 3410.2000, L3100.8410, L700.8000, L501.9520, L4500.0100, L501.9985 ####[facility] [address] [place], [address] CBC W/Diff, Automatedon 07-3 0-2025 Absolute Lymph 1.41 X10 3/uL Normal 0.83-4.51 [facility] Comment on above: Performed By: #### L 503.6550, L506.1001, L100.0100, L503.6030 ####[facility] [address] [place], [address] Absolute Neut 5.4 X10 3/uL Normal 2.0-7.7 [facility] Comment on above: Performed By: #### L 503.6550, L506.1001, L100.0100, L503.6030 ####[facility] [address] [place], [address] Basophils/100 WBC (Bld) 0.4 % Normal 0-1 [facility] Comment on above: Performed By: #### L 503.6550, L506.1001, L100.0100, L503.6030 ####[facility] [address] [place], [address] Eosinophils/100 WBC (Bld) 0.5 % Normal 0-5 [facility] Comment on above: Performed By: #### L 503.6550, L506.1001, L100.0100, L503.6030 ####[facility] [address] [place], [address] Erythrocyte distribution width (RBC) [Ratio] 12.2 % Normal 11.6-14.6 [facility] Comment on above: Performed By: #### L 503.6550, L506.1001, L100.0100, L503.6030 ####[facility] [address] [place], [address] Hematocrit (Bld) [Volume fraction] 41.1 % Normal 37-47 [facility] Comment on above: Performed By: #### L 503.6550, L506.1001, L100.0100, L503.6030 ####[facility] [address] [place], [address] Hemoglobin (Bld) [Mass/Vol] 13.9 g/dL Normal 12.0-15.0 [facility] Comment on above: Performed By: #### L 503.6550, L506.1001, L100.0100, L503.6030 ####[facility] [address] [place], [address] IG% 0.400 Normal 0.0-0.9 [facility] Comment on above: Result Comment: IG% - Immature Granulocytes (promyelocytes, myelocytes andmetamyelocytes) > 1% indicates that a LEFT SHIFT is Present. Performed By: #### L 503.6550, L506.1001, L100.0100, L503.6030 ####[facility] [address] [place], [address] Lymphocytes/100 WBC (Bld) 19.2 % Normal 19-41 [facility] Comment on above: Performed By: #### L 503.6550, L506.1001, L100.0100, L503.6030 ####[facility] [address] [place], [address] MCH (RBC) [Entitic mass] 28.5 pg Normal 27.0-32.0 [facility] Comment on above: Performed By: #### L 503.6550, L506.1001, L100.0100, L503.6030 ####[facility] [address] [place], [address] MCHC (RBC) [Mass/Vol] 33.8 g/dL Normal 32-36 [facility] Comment on above: Performed By: #### L 503.6550, L506.1001, L100.0100, L503.6030 ####[facility] [address] [place], [address] MCV (RBC) [Entitic vol] 84.2 fL Normal 81-99 [facility] Comment on above: Performed By: #### L 503.6550, L506.1001, L100.0100, L503.6030 ####[facility] [address] [place], [address] Monocytes/100 WBC (Bld) 6.4 % Normal 0-10 [facility] Comment on above: Performed By: #### L 503.6550, L506.1001, L100.0100, L503.6030 ####[facility] [address] [place], [address] Neutrophils/100 WBC (Bld) 73.1 % High 47-70 [facility] Comment on above: Performed By: #### L 503.6550, L506.1001, L100.0100, L503.6030 ####[facility] [address] [place], [address] Nucleated RBC (Bld) [#/Vol] 0 10*3/uL Normal 0-5 [facility] Comment on above: Performed By: #### L 503.6550, L506.1001, L100.0100, L503.6030 ####[facility] [address] [place], [address] Platelet mean volume (Bld) [Entitic vol] 10.8 fL Normal 6.2-12.0 [facility] Comment on above: Performed By: #### L 503.6550, L506.1001, L100.0100, L503.6030 ####[facility] [address] [place], [address] Platelets (Bld) [#/Vol] 265 10*3/uL Normal 150-450 [facility] Comment on above: Performed By: #### L 503.6550, L506.1001, L100.0100, L503.6030 ####[facility] [address] [place], [address] RBC (Bld) [#/Vol] 4.88 10*6/uL Normal 4.2-5.[address] [facility] Comment on above: Performed By: #### L 503.6550, L506.1001, L100.0100, L503.6030 ####[facility] [address] [place], [address] RDW SD 37.0 fl Normal 35.1-43.9 [facility] Comment on above: Performed By: #### L 503.6550, L506.1001, L100.0100, L503.6030 ####[facility] [address] [place], [address] WBC (Bld) [#/Vol] 7.4 10*3/uL Normal 4.4-11.0 [facility] Comment on above: Performed By: #### L 503.6550, L506.1001, L100.0100, L503.6030 ####[facility] [address] [place], [address] Ferritinon 05-02-2025 Ferritin [Mass/Vol] 20 ng/mL Low 22-378 [facility] Comment on above: Performed By: #### L 503.6550, L506.1001, L100.0100, L503.6030 ####[facility] [address] [place], [address] Iron+Iron Binding Capacityon 05-02-2025 IRON SATURATION 25.0 Normal 13-59 [facility] Comment on above: Performed By: #### L 503.6550, L506.1001, L100.0100, L503.6030 ####[facility] [address] [place], [address] TIBC 338 ug/dL Normal 250-450 [facility] Comment on above: Performed By: #### L 503.6550, L506.1001, L100.0100, L503.6030 ####[facility] [address] [place], [address] UIBC 252 ug/dL Normal 228-428 [facility] Comment on above: Performed By: #### L 503.6550, L506.1001, L100.0100, L503.6030 ####[facility] [address] [place], [address] Lupus Anticoagulant Compon 0 05-02-2025 aPTT Coag (Bld) [Time] 31.1 s Normal 0.0-43.5 [facility] Comment on above: Performed By: #### L 3410.2000, L3100.8410, L700.8000, L501.9520, L4500.0100, L501.9985 ####[facility] [address] [place], [address] DILUTE PT (dPT) 33.8 sec Normal 0.0-47.6 [facility] Comment on above: Performed By: #### L 3410.2000, L3100.8410, L700.8000, L501.9520, L4500.0100, L501.9985 ####[facility] [address] [place], [address] dPT Conf. Ratio 1.03 Ratio Normal 0.00-1.34 [facility] Comment on above: Performed By: #### L 3410.1999, L3100.8410, L700.8000, L501.9520, L4500.0100, L501.9985 ####[facility] [address] [place], [address] DRVVT 34.0 sec Normal 0.0-47.0 [facility] Comment on above: Performed By: #### L 3410.1999, L3100.8410, L700.8000, L501.9520, L4500.0100, L501.9985 ####[facility] [address] [place], [place], [phone] Interpretation Comment: Normal . [facility] Comment on above: Result Comment: No l upus anticoagulant was detected. Performed By: #### L 3410.2000, L3100.8410, L700.8000, L501.9520, L4500.0100, L501.9985 ####[facility] [address] [place], [address] THROMBIN TIME 20.4 sec Normal 0.0-23.0 [facility] Comment on above: Performed By: #### L 3410.2000, L3100.8410, L700.8000, L501.9520, L4500.0100, L501.9985 ####[facility] [address] [place], [address] Vitamin D,25 Hydroxyon 05-02 Vitamin D 25-OH 43.3 ng/mL Normal 30-100 [facility] Comment on above: Result Comment: Linda min D StatusDeficiency: <20 ng/mL (50nmol/L)Insufficiency: 20-30 ng/mL (50-75 nmol/L)Sufficiency: 30-100 ng/mL (75-250 nmol/L)Toxicity: >100 ng/mL (>250 nmol/L) Performed By: #### L 503.6550, L506.1001, L100.0100, L503.6030 ####[facility] [address] [place], [address] Hemoglobin A1con 04-30-2025 HbA1c (Bld) [Mass fraction] 5.1 % Normal <=5.6 [facility] Comment on above: Result Comment: Norm al < 5.7 % Prediabetic 5.7 - 6.4 % Diabetic >or= 6.5 % Please note range changes. Performed By: #### L 3410.2000, L3100.8410, L700.8000, L501.9520, L4500.0100, L501.9985 ####[facility] [address] [place], [address] Thyroid Stim Hormone (TSH)on 04-30-2025 TSH 1.560 uIU/mL Normal 0.300-4.200 [facility] Comment on above: Performed By: #### L 3410.2000, L3100.8410, L700.8000, L501.9520, L4500.0100, L501.9985 ####[facility] [address] [place], [address] hCG Titer Quant., Serumon HCG QUANT. < 1 Normal <9 [facility] Comment on above: Result Comment: Gest ational Age0.2-1 Week: 5-50 mIU/mL1-2 Weeks: 50-500 mIU/mL2-3 Weeks: 100-5000 mIU/mL3-4 Weeks: 500-10,000 mIU/mL4-5 Weeks:1000-50,000 mIU/mL5-6 Weeks: 10,000-100,000 mIU/mL6-8 Weeks: 15,000-200,000 mIU/mL2-3 Months:10,000-100,000 mIU/mL Performed By: #### L 3410.2000, L3100.8410, L700.8000, L501.9520, L4500.0100, L501.9985 ####[facility] [address] [facility] [address] [place], [place], [id number] hCG Titer Quant., Serumon HCG QUANT. 11 mIU/mL High <9 [facility] Comment on above: Result Comment: Gest ational Age0.2-1 Week: 5-50 mIU/mL1-2 Weeks: 50-500 mIU/mL2-3 Weeks: 100-5000 mIU/mL3-4 Weeks: 500-10,000 mIU/mL4-5 Weeks:1000-50,000 mIU/mL5-6 Weeks: 10,000-100,000 mIU/mL6-8 Weeks: 15,000-200,000 mIU/mL2-3 Months:10,000-100,000 mIU/mL Performed By: #### L 700.8000 ####[facility] [address] [facility]. [place], [place], [id number] hCG Titer Quant., Serumon HCG QUANT. 15 mIU/mL High <9 [facility] Comment on above: Result Comment: Gest ational Age0.2-1 Week: 5-50 mIU/mL1-2 Weeks: 50-500 mIU/mL2-3 Weeks: 100-5000 mIU/mL3-4 Weeks: 500-10,000 mIU/mL4-5 Weeks:1000-50,000 mIU/mL5-6 Weeks: 10,000-100,000 mIU/mL6-8 Weeks: 15,000-200,000 mIU/mL2-3 Months:10,000-100,000 mIU/mL Performed By: #### L 700.8000 ####[facility] [address] [place], [place], [id number] MR/BMS.BPon 04-23-2025 MR/BMS.BP Normal [facility] Internal Medicine Office Vis iton 04-12-2025 Internal Medicine Office Visit Normal [facility] hCG Titer Quant., Serumon HCG QUANT. < 1 Normal <9 non-preg [facility] Comment on above: Result Comment: Gest ational Age0.2-1 Week: 5-50 mIU/mL1-2 Weeks: 50-500 mIU/mL2-3 Weeks: 100-5000 mIU/mL3-4 Weeks: 500-10,000 mIU/mL4-5 Weeks:1000-50,000 mIU/mL5-6 Weeks: 10,000-100,000 mIU/mL6-8 Weeks: 15,000-200,000 mIU/mL2-3 Months:10,000-100,000 mIU/mL Performed By: #### L 700.8000 ####[facility] [address] [facility]. [place], [place], [address] Cell Operator Office Visit Reporton 03-27-2025 Cell Operator Office Visit Report Normal [facility] hCG Titer Quant., Serumon HCG QUANT. 8 mIU/mL Normal <9 non-preg [facility] Comment on above: Result Comment: Gest ational Age0.2-1 Week: 5-50 mIU/mL1-2 Weeks: 50-500 mIU/mL2-3 Weeks: 100-5000 mIU/mL3-4 Weeks: 500-10,000 mIU/mL4-5 Weeks:1000-50,000 mIU/mL5-6 Weeks: 10,000-100,000 mIU/mL6-8 Weeks: 15,000-200,000 mIU/mL2-3 Months:10,000-100,000 mIU/mL Performed By: #### L 700.8000 ####[facility] [address] [place], [place], [id number] hCG Titer Quant., Serumon HCG QUANT. 33 mIU/mL High <9 non-preg [facility] Comment on above: Result Comment: Gest ational Age0.2-1 Week: 5-50 mIU/mL1-2 Weeks: 50-500 mIU/mL2-3 Weeks: 100-5000 mIU/mL3-4 Weeks: 500-10,000 mIU/mL4-5 Weeks:1000-50,000 mIU/mL5-6 Weeks: 10,000-100,000 mIU/mL6-8 Weeks: 15,000-200,000 mIU/mL2-3 Months:10,000-100,000 mIU/mL Performed By: #### L 700.8000 ####[facility] [address] [place], [place], [address] Office Visit Reporton 2024 Office Visit Report Normal [facility] Urgent Care Visit Reporton 0 - Urgent Care Visit Report Normal [facility] Urgent Care Visit Reporton 0 - Urgent Care Visit Report Normal [facility] Internal Medicine Office Vis iton 02-12-2025 Internal Medicine Office Visit Normal [facility] Genital Culture Comprehensiv taqueria 02-11-2025 VAC Normal [facility] Comment on above: Performed By: #### M 100.3200, ####[facility] [address] [place], [place], [id number] Gram Stainon 02-06-2025 GS Reason for Exam: Vag inal Discharge Gram Stain 4+ Gram variable melody No Gram negative diplococci Rare Gram positive cocci Score = 8 Interpretation: 0-3 Normal, 4-6 Intermediate, 7-10 Positive BV Normal [facility] Comment on above: Performed By: #### M 100.3200, M1 ####[facility] [address], [address] Cell Operator Office Visit Reporton 02-06-2025 Cell Operator Office Visit Report Normal [facility] Vitamin D,25 Hydroxyon 02-02 Vitamin D 25-OH 28.5 ng/mL Low 30-100 [facility] Comment on above: Result Comment: Linda min D StatusDeficiency: <20 ng/mL (50nmol/L)Insufficiency: 20-30 ng/mL (50-75 nmol/L)Sufficiency: 30-100 ng/mL (75-250 nmol/L)Toxicity: >100 ng/mL (>250 nmol/L) Performed By: #### L 506.1001 ####[facility] [address] [place], [place], [address] Genital Culture Comprehensiv taqueria 01-08-2025 VAC Reason for Exam: Vag inal Discharge Normal vaginal kathy isolated. No yeast, Gardnerella, Neisseria or beta-hemolytic Streptococcus isolated. 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, [address] Gram Stainon 01-04-2025 GS Reason for Exam: Vag inal Discharge Gram Stain No Gram negative diplococci 2+ White Blood Cells 4+ Gram positive rods 1+ Gram negative rods Score = 1 Interpretation: 0-3 Normal, 4-6 Intermediate, 7-10 Positive BV Normal [facility] Comment on above: Performed By: #### M 100.1999, M100.3200 ####[facility] [address] [facility] [place], [address] Cell Operator Office Visit Reporton 01-04-2025 Cell Operator Office Visit Report Normal [facility] Progress Noteon 12-12-2024 Rock Splitter Authentication Interface Message Text HPI: Nata is [...] Pediatric Plastic and Reconstructive Surgery 12/12/2024 Normal [facility] Chiropractic Reporton 2024 Chiropractic Report Normal [facility] Chiropractic Reporton 2024 Chiropractic Report Normal [facility] CBC W/Diff, Automatedon 10-05 Absolute Lymph 2.14 X10 3/uL Normal 0.83-4.51 [facility] Comment on above: Performed By: #### L 500.4050, L506.0400, L506.1000, L501.9520, L100.0100 ####[facility] [address] [place], [address] Absolute Neut 4.4 X10 3/uL Normal 2.0-7.7 [facility] Comment on above: Performed By: #### L 500.4050, L506.0400, L506.1000, L501.9520, L100.0100 ####[facility] [address] [place], [address] Basophils/100 WBC (Bld) 0.6 % Normal 0-1 [facility] Comment on above: Performed By: #### L 500.4050, L506.0400, L506.1000, L501.9520, L100.0100 ####[facility] [address] [place], [address] Eosinophils/100 WBC (Bld) 1.0 % Normal 0-5 [facility] Comment on above: Performed By: #### L 500.4050, L506.0400, L506.1000, L501.9520, L100.0100 ####[facility] [address] [place], [address] Erythrocyte distribution width (RBC) [Ratio] 12.3 % Normal 11.6-14.6 [facility] Comment on above: Performed By: #### L 500.4050, L506.0400, L506.1000, L501.9520, L100.0100 ####[facility] [address] [place], [address] Hematocrit (Bld) [Volume fraction] 43.7 % Normal 37-47 [facility] Comment on above: Performed By: #### L 500.4050, L506.0400, L506.1000, L501.9520, L100.0100 ####[facility] [address] [place], [address] Hemoglobin (Bld) [Mass/Vol] 14.6 g/dL Normal 12.0-15.0 [facility] Comment on above: Performed By: #### L 500.4050, L506.0400, L506.1000, L501.9520, L100.0100 ####[facility] [address] [place], [address] IG% 0.300 Normal 0.0-0.9 [facility] Comment on above: Result Comment: IG% - Immature Granulocytes (promyelocytes, myelocytes andmetamyelocytes) > 1% indicates that a LEFT SHIFT is Present. Performed By: #### L 500.4050, L506.0400, L506.1000, L501.9520, L100.0100 ####[facility] [address] [place], [address] Lymphocytes/100 WBC (Bld) 29.8 % Normal 19-41 [facility] Comment on above: Performed By: #### L 500.4050, L506.0400, L506.1000, L501.9520, L100.0100 ####[facility] [address] [place], [address] MCH (RBC) [Entitic mass] 28.3 pg Normal 27.0-32.0 [facility] Comment on above: Performed By: #### L 500.4050, L506.0400, L506.1000, L501.9520, L100.0100 ####[facility] [address] [place], [address] MCHC (RBC) [Mass/Vol] 33.4 g/dL Normal 32-36 [facility] Comment on above: Performed By: #### L 500.4050, L506.0400, L506.1000, L501.9520, L100.0100 ####[facility] [address] [place], [address] MCV (RBC) [Entitic vol] 84.7 fL Normal 81-99 [facility] Comment on above: Performed By: #### L 500.4050, L506.0400, L506.1000, L501.9520, L100.0100 ####[facility] [address] [place], [address] Monocytes/100 WBC (Bld) 6.8 % Normal 0-10 [facility] Comment on above: Performed By: #### L 500.4050, L506.0400, L506.1000, L501.9520, L100.0100 ####[facility] [address] [place], [address] Neutrophils/100 WBC (Bld) 61.5 % Normal 47-70 [facility] Comment on above: Performed By: #### L 500.4050, L506.0400, L506.1000, L501.9520, L100.0100 ####[facility] [address] [place], [address] Nucleated RBC (Bld) [#/Vol] 0 10*3/uL Normal 0-5 [facility] Comment on above: Performed By: #### L 500.4050, L506.0400, L506.1000, L501.9520, L100.0100 ####[facility] [address] [place], [address] Platelet mean volume (Bld) [Entitic vol] 10.5 fL Normal 6.2-12.0 [facility] Comment on above: Performed By: #### L 500.4050, L506.0400, L506.1000, L501.9520, L100.0100 ####[facility] [address] [place], [address] Platelets (Bld) [#/Vol] 287 10*3/uL Normal 150-450 [facility] Comment on above: Performed By: #### L 500.4050, L506.0400, L506.1000, L501.9520, L100.0100 ####[facility] [address] [place], [address] RBC (Bld) [#/Vol] 5.16 10*6/uL Normal 4.2-5.[address] [facility] Comment on above: Performed By: #### L 500.4050, L506.0400, L506.1000, L501.9520, L100.0100 ####[facility] [address] [place], [address] RDW SD 37.6 fl Normal 35.1-43.9 [facility] Comment on above: Performed By: #### L 500.4050, L506.0400, L506.1000, L501.9520, L100.0100 ####[facility] [address] [place], [address] WBC (Bld) [#/Vol] 7.2 10*3/uL Normal 4.4-11.0 [facility] Comment on above: Performed By: #### L 500.4050, L506.0400, L506.1000, L501.9520, L100.0100 ####[facility] [address] [place], [address] Comprehensive Metabolic [facility] 10-25-2024 Albumin [Mass/Vol] 4.1 g/dL Normal 3.2-5.0 [facility] Comment on above: Performed By: #### L 500.4050, L506.0400, L506.1000, L501.9520, L100.0100 ####[facility] [address] [place], [address] Albumin/Globulin [Mass ratio] 1.1 {ratio} Normal 0.9-2.4 [facility] Comment on above: Performed By: #### L 500.4050, L506.0400, L506.1000, L501.9520, L100.0100 ####[facility] [address] [place], [address] ALK P 131 U/L High 45-117 [facility] Comment on above: Performed By: #### L 500.4050, L506.0400, L506.1000, L501.9520, L100.0100 ####[facility] [address] [place], [address] ALT [Catalytic activity/Vol] 24 U/L Normal 13-56 [facility] Comment on above: Performed By: #### L 500.4050, L506.0400, L506.1000, L501.9520, L100.0100 ####[facility] [address] [place], [address] AST [Catalytic activity/Vol] 14 U/L Low 15-37 [facility] Comment on above: Performed By: #### L 500.4050, L506.0400, L506.1000, L501.9520, L100.0100 ####[facility] [address] [place], [address] Bilirubin [Mass/Vol] 0.30 mg/dL Normal 0.20-1.00 [facility] Comment on above: Result Comment: For patients on eltrombopag therapy, use of Dimension [place] TBIL is not recommended. Performed By: #### L 500.4050, L506.0400, L506.1000, L501.9520, L100.0100 ####[facility] [address] [place], [address] BUN/CRE 16.8 RATIO Normal 10-20 [facility] Comment on above: Performed By: #### L 500.4050, L506.0400, L506.1000, L501.9520, L100.0100 ####[facility] [address] [place], [address] CA,Total 9.2 mg/dL Normal 8.5-10.1 [facility] Comment on above: Performed By: #### L 500.4050, L506.0400, L506.1000, L501.9520, L100.0100 ####[facility] [address] [place], [address] Chloride [Moles/Vol] 100 mmol/L Normal 98-107 [facility] Comment on above: Performed By: #### L 500.4050, L506.0400, L506.1000, L501.9520, L100.0100 ####[facility] [address] [place], [address] CO2 [Moles/Vol] 27.0 mmol/L Normal 21.0-32.0 [facility] Comment on above: Performed By: #### L 500.4050, L506.0400, L506.1000, L501.9520, L100.0100 ####[facility] [address] [place], [address] Creatinine [Mass/Vol] 0.83 mg/dL Normal 0.55-1.02 [facility] Comment on above: Result Comment: The validity of the calculated GFR GFRAA in patients over70 years has not been determined. Clinical correlation isessential. Performed By: #### L 500.4050, L506.0400, L506.1000, L501.9520, L100.0100 ####[facility] [address] [place], [address] EST GFR - AA 110 mL/min Normal >60 [facility] Comment on above: Result Comment: Afri can Chilean GFR Calc Performed By: #### L 500.4050, L506.0400, L506.1000, L501.9520, L100.0100 ####[facility] [address] [place], [address] GAP 9 Normal 5-15 [facility] Comment on above: Performed By: #### L 500.4050, L506.0400, L506.1000, L501.9520, L100.0100 ####[facility] [address] [place], [address] GFR/1.73 sq M.predicted among non-blacks MDRD (S/P/Bld) [Vol rate/Area] 91 mL/min/{1.73_m2} Normal >60 [facility] Comment on above: Result Comment: Non- GFR Calc Performed By: #### L 500.4050, L506.0400, L506.1000, L501.9520, L100.0100 ####[facility] [address] [place], [address] Globulin (S) [Mass/Vol] 3.7 g/dL Normal 2.2-4.2 [facility] Comment on above: Performed By: #### L 500.4050, L506.0400, L506.1000, L501.9520, L100.0100 ####[facility] [address] [place], [address] Glucose [Mass/Vol] 89 mg/dL Normal 74-106 [facility] Comment on above: Performed By: #### L 500.4050, L506.0400, L506.1000, L501.9520, L100.0100 ####[facility] [address] [place], [address] Potassium [Moles/Vol] 3.8 mmol/L Normal 3.5-5.1 [facility] Comment on above: Performed By: #### L 500.4050, L506.0400, L506.1000, L501.9520, L100.0100 ####[facility] [address] [place], [address] Sodium [Moles/Vol] 137 mmol/L Normal 136-145 [facility] Comment on above: Performed By: #### L 500.4050, L506.0400, L506.1000, L501.9520, L100.0100 ####[facility] [address] [place], [address] T PROT 7.8 g/dL Normal 6.4-8.2 [facility] Comment on above: Performed By: #### L 500.4050, L506.0400, L506.1000, L501.9520, L100.0100 ####[facility] [address] [place], [address] Urea nitrogen [Mass/Vol] 14 mg/dL Normal 7-18 [facility] Comment on above: Performed By: #### L 500.4050, L506.0400, L506.1000, L501.9520, L100.0100 ####[facility] [address] [place], [address] T4 Free Directon 10-25-2024 T4 FREE DIRECT 1.10 ng/dL Normal 0.76-1.46 [facility] Comment on above: Performed By: #### L 500.4050, L506.0400, L506.1000, L501.9520, L100.0100 ####[facility] [address] [place], [address] Thyroid Stim Hormone (TSH)on 10-25-2024 TSH 1.480 uIU/mL Normal 0.358-3.740 [facility] Comment on above: Performed By: #### L 500.4050, L506.0400, L506.1000, L501.9520, L100.0100 ####[facility] [address] [place], [address] Vitamin D,25 Hydroxyon 10-25 Vitamin D 25-OH 18.1 ng/mL Normal [facility] Comment on above: Result Comment: Linda min D 25(OH) Status Range Deficiency <20 ng/mL (50nmol/L) Insufficiency 20 - 30 ng/mL (50 - 75 nmol/L) Sufficiency 30 - 100 ng/mL (75 - 250 nmol/L) Toxicity >100 ng/mL (>250 nmol/L) Performed By: #### L 500.4050, L506.0400, L506.1000, L501.9520, L100.0100 ####[facility] [address] [place], [address] Chiropractic Reporton 2024 Chiropractic Report Normal [facility] PAP I-G w/rfx hrHPV-Aptimaon 09-23-2024 ADEQ Comment Normal . [facility] Comment on above: Order Comment: Speci men Comment: [id number] Comment: Source.............Cervix;EndocervixSpecimen Comment: LMP / Prev Treat...[id number] Comment: No. of containers..01 ThinPrep Vial Result Comment: Sati sfactory for evaluation. No endocervical component is identified. Performed By: #### L 7400.0353 ####[facility] [address] [place], [place], [id number] COMM . Normal . [facility] Comment on above: Order Comment: Wiley escobedo Comment: [id number] Comment: Source.............Cervix;EndocervixSpecimen Comment: LMP / Prev Treat...[id number] Comment: No. of containers..01 ThinPrep Vial Performed By: #### L 7400.0353 ####[facility] [address] [place], [place], [address] COMMENT Comment Normal . [facility] Comment on above: Order Comment: Specjessy escobedo Comment: [id number] Comment: Source.............Cervix;EndocervixSpecimen Comment: LMP / Prev Treat...[id number] Comment: No. of containers..01 ThinPrep Vial Result Comment: This liquid based ThinPrep(R) pap test was screened withthe use of an image guided system. Performed By: #### L 7400.0353 ####[facility] [address] [place], [place], [address] DIAG Comment Normal . [facility] Comment on above: Order Comment: Speci men Comment: [id number] Comment: Source.............Cervix;EndocervixSpecimen Comment: LMP / Prev Treat...[id number] Comment: No. of containers..01 ThinPrep Vial Result Comment: NEGA TIVE FOR INTRAEPITHELIAL LESION OR MALIGNANCY. Performed By: #### L 7400.0353 ####[facility] [address] [address] [place], [place], [id number] HPV RFLX Comment Normal . [facility] Comment on above: Order Comment: Speci men Comment: [id number] Comment: Source.............Cervix;EndocervixSpecimen Comment: LMP / Prev Treat...[id number] Comment: No. of containers..01 ThinPrep Vial Result Comment: The HPV DNA reflex criteria were not met with this specimenresult therefore, no HPV testing was performed.Performed at: [address] [id number] Director: Sylvie Dykes MD, Phone: [phone] Performed By: #### L 7400.0353 ####[facility] [address] [place], [place], [phone] PAPSMR Comment Normal . [facility] Comment on above: Order Comment: Speci men Comment: [id number] Comment: Source.............Cervix;EndocervixSpecimen Comment: LMP / Prev Treat...[id number] Comment: No. of containers..01 ThinPrep Vial Result Comment: The Pap smear is a screening test designed to aid in thedetection of premalignant and malignant conditions of theuterine cervix. It is not a diagnostic procedure andshould not be used as the sole means of detecting cervicalcancer. Both false-positive and false-negative reports dooccur. Performed By: #### L 7400.0353 ####[facility] [address] [place], [place], [phone] PERFORM Comment Normal . [facility] Comment on above: Order Comment: Speci men Comment: [id number] Comment: Source.............Cervix;EndocervixSpecimen Comment: LMP / Prev Treat...[id number] Comment: No. of containers..01 ThinPrep Vial Result Comment: Shannan Fuchs, Senior Solutions Consultant (ASCP) Performed By: #### L 7400.0353 ####[facility] [address] [place], [place], [phone] Cell Operator Office Visit Reporton 09-15-2024 Cell Operator Office Visit Report Normal [facility] Chiropractic Reporton 2023 Chiropractic Report Normal [facility] Chiropractic Reporton 2023 Chiropractic Report Normal [facility] US Pelvison 07-12-2024 Indication Localization of [...] Read By: Elizabeth Robertson M.D. MATERNAL MEDICINE [facility] CNOVon 07-11-2024 CNOV Office Visit (OBGYWM ) ----- NATA QUEZADA ([id number]) [birth year] F [facility] Date Time Provider Department 07/11/24 12:45 PM LINDA MÁRQUEZ OBGYWM During your visit today, we recorded the following information about you: Blood pressure Weight Last Period 126/78 61.9 kg 05/30/24 Linda Márquez APRN.OYSTER FARMER 07/11/2024 1:01 PM Signed Patinet declined clothing supervisor. Nata QUEZADA presents today for IUD check. She had a Paraguard placed on 10/01/2023. She has had pain since placement. Patient reported ultrasound 07/11/2024, reported unable to locate strings. REVIEW OF SYSTEMS: PAIN ASSESSMENT: Negative for pain, history of chronic pain, or current treatment for a chronic pain condition. SENSITIVE EXAM: The sensitive examination was discussed with the Patient or Patient's Authorized Kitchen Supervisor. As applicable, any other physician, advance practice provider, medical student, or other health professional student that will be observing or involved in the sensitive examination for educational or training purposes was discussed with the Patient or Authorized Kitchen Supervisor. The Patient or Authorized Kitchen Supervisor has agreed to proceed with the sensitive [...] masses IMPRESSION/PLAN: IUD correctly positioned. Linda Márquez APRN.OYSTER FARMER Medical Decision Making: Problems: Low: Acute, uncomplicated [...] for Encounter Date Provider Department Center 07/11/2024 [id number] MÁRQUEZ [facility] Encounter Status:Closed by LINDA MÁRQUEZ on 07/11/24 Normal [facility] US Pelvison 07-11-2024 Radiology Study observation (narrative) [facility] UA DIP, URINE (POC)on 2023 BILIRUBIN UA (POCT) Small Abnormal Negative [facility] CLARITY UA (POCT) Clear [facility] COLOR UA (POCT) Yellow [facility] GLUCOSE UA (POCT) Negative Negative mg/dL [facility] Hemoglobin Ql (U) Moderate Abnormal Negative [facility] KETONE UA (POCT) Negative Negative mg/dL [facility] LEUKOCYTES UA (POCT) Negative Negative [facility] NITRITE UA (POCT) Positive Abnormal Negative [facility] PH UA (POCT) 6.0 4.5 - 8.0 [facility] Protein Ql (U) 30 mg/dL Abnormal Negative mg/dL [facility] SPECIFIC GRAVITY UA (POCT) >=1.030 1.005 - 1.030 [facility] UROBILINOGEN UA (POCT) 0.2 E.U./dL Normal E.U./dL [facility] Marly 08-20-2023 CNPN Telephone ([id number]) ----- TRACEEMayurNATA Dale ([id number]) [birth year] F [facility] Date Time Provider Department 08/20/23 ADILIA KIRKPATRICK [id number] During your visit today, we recorded the following information about you: Adilia Kirkpatrick RN 08/20/2023 3:03 PM Signed OB Post Discharge Patient Call Back: Date: 08/20/2023 Patient Name: Nata Penaloza : 2000 Delivery Summary: Oseas Quezada [[id number]] Delivery Information: Delivery Date: 07/28/23 Delivery type: Vaginal, Spontaneous Delivering Clinician: Yodit Fuchs MD Vacuum Used: No Forceps Used: No Shoulder Dystocia Present: No Lacerations: 1st Episiotomy: None [place]: Gender: Male Weight (grams): 2772 g One Minute : 9 Five Minute : 9 Patient was contacted after her inpatient discharge from [facility]. She reported the following as it [...] in: Bassinet Baby in need of a crib/Fdim-xvr-Sigy: No Baby's feeding: Method: Human milk only. Breast Feeding Problems: Per Nata, no problems BF but is also starting to pump and feed the EBM back to baby via bottle. Frequency: Within Normal Limits Education: N/A Baby's elimination habits: Average wet diapers: Within Normal Limits Average dirty diapers: Within Normal Limits Education: N/A Follow-up appointments: Scheduled appointment with a train caller: Has seen Scheduled a follow up appointment [...] Encounter Status:Closed by ADILIA KIRKPATRICK on 08/20/23 [facility] Meena 07-30-2023 [facility] HNO ID: [id number] Author: Delaney Durand APRN.CNM Service: Obstetrics Author Type: Main Galley Scullion Type: Discharge Summary Filed: 07/30/2023 7:28 AM Note Text: ----- Attestation signed by Rhoda Foster DO at [...] 100% 100% Weight: Height: Rhoda Foster DO ----- DISCHARGE SUMMARY OBSTETRICS PATIENT NAME: Nata Penaloza [...] PROCEDURES/SURGERY DURING HOSPITALIZATION: Delivery Summary: Ruben Penaloza [[id number]] Delivery Information: Delivery Date: 07/28/23 Delivery type: Vaginal, Spontaneous Delivering Clinician: Yodit Fuchs MD Vacuum Used: No Forceps Used: No Shoulder Dystocia Present: No Lacerations: 1st Episiotomy: None [place]: Gender: Male Weight (grams): 2772 g One Minute : 9 Five Minute : 9 Procedures (if applicable) Hospital Course: 22 year old female who is Day #2 from delivery as noted above. Pt's peripartum course was complicated by GHTN. The delivery was uncomplicated. Mental health issues addressed during course. Patient's stated reason for arrival: "to be induced" HISTORY OF THE PRESENT ILLNESS: The patient [...] Commonly known (more content not included)... Normal [facility] ANES POSTPROC EVALon 023 ANES POSTPROC EVAL HNO ID: [id number] Author: Huey Light APRN.RECYCLING OPERATIONS MANAGER Service: Anesthesiology Author Type: Nurse Precision Grinder External Type: Anesthesia Postprocedure Evaluation Filed: 07/29/2023 7:15 [...] 07/29/23 0714 SpO2 07/29/23 0714 Ruben Penaloza [[id number]] Baby Delivery: 07/28/2023 0948 Post Anesthesia Patient [...] Anesthesia Observations No Documentation SIGNATURE: Huey Light APRN.RECYCLING OPERATIONS MANAGER PATIENT NAME: Nata Penaloza DATE: July 29, 2023 TIME: 7:14 AM CSN: [id number] [facility] 07-29-2023 [facility] Telephone (ELSI) ----- NATA PENALOZA ([id number]) [birth year] F [facility] Date Time [...] unit in LR 500 mL iv infusion (INDUCTION/AUGMENTATION) (PITOCIN) Problem List As Of Date 07/29/2023 [...] Encounter Status:Closed by DELANEY DURAND on 07/29/23 [facility] ANES PRE-OPon 07-28-2023 ANES PRE-OP HNO ID: [id number] Author: Rodri French APRN.CRNA Service: Anesthesiology Author Type: Nurse Precision Grinder External Type: Anesthesia Preprocedure Evaluation Filed: 07/28/2023 2:38 AM Note Text: OB ANESTHESIA PRE-PROCEDURE ASSESSMENT PATIENT NAME: Nata Penaloza : 2000 [facility] ANES COTTONSEED MEAT PRESSER: Previous OB anesthetic: None No OB anesthesia [...] Castro present: no Lip Bite Test: I Microretrognathia/Microna gthia/Recessed Chin: Yes DENTAL Dental findings: teeth intact. Additional exam findings: no II - ANESTHESIA PLAN ASA Score: 2 The patient is not a current smoker. NPO Status: adequate Beta Neeru Monitoring Plan Monitoring plan: standard ASA. Post Procedure Analgesic Plan Postoperative analgesic plan: multimodal analgesia. Informed Consent Anesthetic risks, benefits, alternatives, personnel and consent discussed: yes. Patient / Responsible Democrat agrees to proceed: yes Patient / Surrogate [...] obtained within 48 hours of Surgery/Procedure. SIGNATURE: Rodir French APRN.RECYCLING OPERATIONS MANAGER PATIENT NAME: Nata Penaloza DATE: July 28, 2023 TIME: 2:37 AM : 2000 [facility] LD NOTEon 07-28-2023 LD NOTE HNO ID: [id number] Author: An Azevedo MD Service: Obstetrics Author Type: Resident Type: LANDD Delivery Note Filed: 07/28/2023 10:35 AM Note Text: ----- Attestation signed by Yodit Fuchs MD at 07/29/2023 3:48 PM Attestation: I was present for the critical and garcia portions of the delivery on 07/28/2023 and I was immediately available to provide assistance. Yodit Fuchs MD ----- OBSTETRICS DELIVERY SUMMARY - VAGINAL DELIVERY Gestational [...] Method: Misoprostol;Cervical Ripening Balloon (CRB);Oxytocin;AROM Ruben Penaloza [[id number]] Episiotomy/Laceration: Episiotomy: None Lacerations: 1st Perineal Repair [...] old year old female who presented to [facility] with Estimated Date of Delivery: 08/06/23 [...] 28, 2023 TIME: 10:31 AM Normal [facility] CBC W Auto Differential pane l (Bld)on 07-27-2023 Basophils (Bld) [#/Vol] 0.03 10*3/uL Normal <0.11 [facility] Comment on above: Order Comment: Speci men Type: BLOOD SPECIMEN Ordering Facility: [facility] Address: [address] [place] [address] Performed By: #### 5 7021-8 #### [facility] CLIA [id number] [address] [place] [address] [place] Basophils/100 WBC (Bld) 0.3 % Normal [facility] Comment on above: Order Comment: Speci men Type: BLOOD SPECIMEN Ordering Facility: [facility] Address: [address] [place] [address] Performed By: #### 5 7021-8 #### [facility] CLIA [id number] [address] [place] [address] [place] Differential cell count method Nom (Bld) Auto Normal [facility] Comment on above: Order Comment: Speci men Type: BLOOD SPECIMEN Ordering Facility: [facility] Address: [address] [place] [address] Performed By: #### 5 7021-8 #### [facility] CLIA [id number] [address] [place] Eosinophils (Bld) [#/Vol] 0.03 10*3/uL Normal <0.46 [facility] Comment on above: Order Comment: Speci men Type: BLOOD SPECIMEN Ordering Facility: [facility] Address: [address] [place] [address] Performed By: #### 5 7021-8 #### [facility] CLIA [id number] [address] Eosinophils/100 WBC (Bld) 0.3 % Normal [facility] Comment on above: Order Comment: Speci men Type: BLOOD SPECIMEN Ordering Facility: [facility] Address: [address] [place] [address] Performed By: #### 5 7021-8 #### [facility] CLIA [id number] [address] Erythrocyte distribution width (RBC) [Ratio] 11.9 % Normal 11.5-15.0 [facility] Comment on above: Order Comment: Speci men Type: BLOOD SPECIMEN Ordering Facility: [facility] Address: [address] [place] [address] Performed By: #### 5 7021-8 #### [facility] CLIA [id number] [address] [place] Hematocrit (Bld) [Volume fraction] 39.6 % Normal 36.0-46.0 [facility] Comment on above: Order Comment: Speci men Type: BLOOD SPECIMEN Ordering Facility: [facility] Address: [address] [place] [address] Performed By: #### 5 7021-8 #### [facility] CLIA [id number] [address] [place] Hemoglobin (Bld) [Mass/Vol] 13.8 g/dL Normal 11.5-15.5 [facility] Comment on above: Order Comment: Speci men Type: BLOOD SPECIMEN Ordering Facility: [facility] Address: [address] [place] [address] Performed By: #### 5 7021-8 #### [facility] CLIA [id number] [address] [place] Immature granulocytes (Bld) [#/Vol] 0.03 10*3/uL Normal <0.10 [facility] Comment on above: Order Comment: Speci men Type: BLOOD SPECIMEN Ordering Facility: [facility] Address: [address] [place] [address] Performed By: #### 5 7021-8 #### [facility] CLIA [id number] [address] Immature granulocytes/100 WBC (Bld) 0.3 % Normal [facility] Comment on above: Order Comment: Speci men Type: BLOOD SPECIMEN Ordering Facility: [facility] Address: [address] [place] [address] Performed By: #### 5 7021-8 #### [facility] CLIA [id number] [address] [place] Lymphocytes (Bld) [#/Vol] 1.58 10*3/uL Normal 1.00-4.00 [facility] Comment on above: Order Comment: Speci men Type: BLOOD SPECIMEN Ordering Facility: [facility] Address: [address] [place] [address] Performed By: #### 5 7021-8 #### [facility] CLIA [id number] [address] [place] Lymphocytes/100 WBC (Bld) 16.7 % Normal [facility] Comment on above: Order Comment: Speci men Type: BLOOD SPECIMEN Ordering Facility: [facility] Address: [address] [place] [address] Performed By: #### 5 7021-8 #### [facility] CLIA [id number] [address] MCH (RBC) [Entitic mass] 29.9 pg Normal 26.0-34.0 [facility] Comment on above: Order Comment: Speci men Type: BLOOD SPECIMEN Ordering Facility: [facility] Address: [address] [place] [address] Performed By: #### 5 7021-8 #### [facility] CLIA [id number] [address] MCHC (RBC) [Mass/Vol] 34.8 g/dL Normal 30.5-36.0 [facility] Comment on above: Order Comment: Speci men Type: BLOOD SPECIMEN Ordering Facility: [facility] Address: [address] [place] [address] Performed By: #### 5 7021-8 #### [facility] CLIA [id number] [address] MCV (RBC) [Entitic vol] 85.9 fL Normal 80.0-100.0 [facility] Comment on above: Order Comment: Speci men Type: BLOOD SPECIMEN Ordering Facility: [facility] Address: [address] [place] [address] Performed By: #### 5 7021-8 #### [facility] CLIA [id number] [address] Monocytes (Bld) [#/Vol] 0.69 10*3/uL Normal <0.87 [facility] Comment on above: Order Comment: Speci men Type: BLOOD SPECIMEN Ordering Facility: [facility] Address: [address] [place] [address] Performed By: #### 5 7021-8 #### [facility] CLIA [id number] [address] Monocytes/100 WBC (Bld) 7.3 % Normal [facility] Comment on above: Order Comment: Speci men Type: BLOOD SPECIMEN Ordering Facility: [facility] Address: [address] [place] [address] Performed By: #### 5 7021-8 #### [facility] CLIA [id number] [address] [place] Neutrophils (Bld) [#/Vol] 7.08 10*3/uL Normal 1.45-7.50 [facility] Comment on above: Order Comment: Speci men Type: BLOOD SPECIMEN Ordering Facility: [facility] Address: [address] [place] [address] Performed By: #### 5 7021-8 #### [facility] CLIA [id number] [address] [place] Neutrophils/100 WBC (Bld) 75.1 % Normal [facility] Comment on above: Order Comment: Speci men Type: BLOOD SPECIMEN Ordering Facility: [facility] Address: [address] [place] [address] Performed By: #### 5 7021-8 #### [facility] CLIA [id number] [address] [place] Nucleated RBC (Bld) [#/Vol] 10*3/uL Normal <0.01 [facility] Comment on above: Order Comment: Speci men Type: BLOOD SPECIMEN Ordering Facility: [facility] Address: [address] [place] [address] Performed By: #### 5 7021-8 #### [facility] CLIA [id number] [address] OF [facility] Nucleated RBC/100 WBC (Bld) [Ratio] 0.0 /100 WBC Normal [facility] Comment on above: Order Comment: Speci men Type: BLOOD SPECIMEN Ordering Facility: [facility] Address: [address] [place] [address] Performed By: #### 5 7021-8 #### [facility] CLIA [id number] [address] [place] Platelet mean volume (Bld) [Entitic vol] 12.3 fL Normal 9.0-12.7 [facility] Comment on above: Order Comment: Speci men Type: BLOOD SPECIMEN Ordering Facility: [facility] Address: [address] [place] [address] Performed By: #### 5 7021-8 #### [facility] CLIA [id number] [address] [place] Platelets (Bld) [#/Vol] 215 10*3/uL Normal 150-400 [facility] Comment on above: Order Comment: Speci men Type: BLOOD SPECIMEN Ordering Facility: [facility] Address: [address] [place] [address] Performed By: #### 5 7021-8 #### [facility] CLIA [id number] [address] [place] RBC (Bld) [#/Vol] 4.61 10*6/uL Normal 3.90-5.20 [facility] Comment on above: Order Comment: Speci men Type: BLOOD SPECIMEN Ordering Facility: [facility] Address: [address] [place] [address] Performed By: #### 5 7021-8 #### [facility] CLIA [id number] [address] OF [facility] WBC (Bld) [#/Vol] 9.44 10*3/uL Normal 3.70-11.00 [facility] Comment on above: Order Comment: Speci men Type: BLOOD SPECIMEN Ordering Facility: [facility] Address: [address] [place] [address] Performed By: #### 5 7021-8 #### [facility] CLIA [id number] [address] OF [facility] Comprehensive metabolic 2000 panelon 07-27-2023 Albumin [Mass/Vol] 3.7 g/dL Low 3.9-4.9 [facility] Comment on above: Order Comment: Speci men Type: BLOOD SPECIMENOrdering Facility: [facility] Address: [address] [place] [address] Performed By: #### 2 4323-8 ####[facility] [id number] [address] [place] ALP [Catalytic activity/Vol] 251 U/L High 34-123 [facility] Comment on above: Order Comment: Speci men Type: BLOOD SPECIMENOrdering Facility: [facility] Address: [address] [place] [address] Performed By: #### 2 4323-8 ####[facility] [id number] [address] [place] ALT With P-5'-P [Catalytic activity/Vol] 16 U/L Normal 7-38 [facility] Comment on above: Order Comment: Speci men Type: BLOOD SPECIMENOrdering Facility: [facility] Address: [address] [place] [address] Performed By: #### 2 4323-8 ####[facility] [id number] [address] Anion gap [Moles/Vol] 12 mmol/L Normal 9-18 [facility] Comment on above: Order Comment: Speci men Type: BLOOD SPECIMENOrdering Facility: [facility] Address: [address] [place] [address] Performed By: #### 2 4323-8 ####[facility] [id number] [address] AST With P-5'-P [Catalytic activity/Vol] 21 U/L Normal 13-35 [facility] Comment on above: Order Comment: Speci men Type: BLOOD SPECIMENOrdering Facility: [facility] Address: [address] [place] [address] Performed By: #### 2 4323-8 ####[facility] [id number] [address] [place] Bilirubin [Mass/Vol] 0.2 mg/dL Normal 0.2-1.3 [facility] Comment on above: Order Comment: Speci men Type: BLOOD SPECIMENOrdering Facility: [facility] Address: [address] [place] [address] Performed By: #### 2 4323-8 ####[facility] [id number] [place] [address] [place] Calcium [Mass/Vol] 9.1 mg/dL Normal 8.5-10.2 [facility] Comment on above: Order Comment: Speci men Type: BLOOD SPECIMENOrdering Facility: [facility] Address: [address] [place] [address] Performed By: #### 2 4323-8 ####[facility] [id number] [place] [address] [place] Chloride [Moles/Vol] 104 mmol/L Normal 97-105 [facility] Comment on above: Order Comment: Speci men Type: BLOOD SPECIMENOrdering Facility: [facility] Address: [address] [place] [address] Performed By: #### 2 4323-8 ####[facility] [id number] [place] [address] [place] CO2 [Moles/Vol] 21 mmol/L Low 22-30 [facility] Comment on above: Order Comment: Speci men Type: BLOOD SPECIMENOrdering Facility: [facility] Address: [address] [place] [address] Performed By: #### 2 4323-8 ####[facility]IA [id number] [place] [address] [place] Creatinine [Mass/Vol] 0.58 mg/dL Normal 0.58-0.96 [facility] Comment on above: Order Comment: Speci men Type: BLOOD SPECIMENOrdering Facility: [facility] Address: [address] [place] [address] Performed By: #### 2 4323-8 ####[facility] [id number] [address] [place] Creatinine and Glomerular filtration rate.predicted panel (S/P/Bld) 133 mL/min/1.73m??? Normal >=60 [facility] Comment on above: Order Comment: Speci men Type: BLOOD SPECIMENOrdering Facility: [facility] Address: [address] [place] [address] Result Comment: Isela mated Glomerular Filtration Rate [...] actual GFR. Performed By: #### 2 4323-8 ####[facility]ORYCLIA [id number] [place] [address] [place] Glucose [Mass/Vol] 88 mg/dL Normal 74-99 [facility] Comment on above: Order Comment: Speci men Type: BLOOD SPECIMENOrdering Facility: [facility] Address: [address] [place] [address] Result Comment: The [place] Diabetes Association (ADA) provides guidance for cutoff [...] Standards of Medical Care in Diabetes 2016, [place] [employer]. Diabetes Care. 2016.39(Suppl 1). Performed By: #### 2 4323-8 ####[facility] LABORATORYCLIA [id number] [place] [id number] [place] Potassium [Moles/Vol] 3.8 mmol/L Normal 3.7-5.1 [facility] Comment on above: Order Comment: Speci men Type: BLOOD SPECIMENOrdering Facility: [facility] Address: [address] [place] [id number] Performed By: #### 2 4323-8 ####[facility] LABORATORYCLIA [id number] [place] [address] [place] Protein [Mass/Vol] 6.5 g/dL Normal 6.3-8.0 [facility] Comment on above: Order Comment: Speci men Type: BLOOD SPECIMENOrdering Facility: [facility] Address: [address] [place] [address] Performed By: #### 2 4323-8 ####[facility] LABORATORYCLIA [id number] [place] [id number] [facility] Sodium [Moles/Vol] 137 mmol/L Normal 136-144 [facility] Comment on above: Order Comment: Speci men Type: BLOOD SPECIMENOrdering Facility: [facility] Address: [address] [place] [address] Performed By: #### 2 4323-8 ####[facility] LABORATORYCLIA [id number] [address] Urea nitrogen [Mass/Vol] 13 mg/dL Normal 7-21 [facility] Comment on above: Order Comment: Speci men Type: BLOOD SPECIMENOrdering Facility: [facility] Address: [place] [address] Performed By: #### 2 4323-8 ####[facility] LABORATORYCLIA [id number] [address] OF [facility] HISTORY PHYSICALon HISTORY PHYSICAL HNO ID: [id number] Author: Leelee Saini MD Service: Obstetrics Author Type: Resident Type: HANDP Filed: 07/27/2023 6:12 PM Note Text: ----- Attestation signed by Yodit Fuchs MD at 07/28/2023 3:52 PM Attending Note I personally saw and examined the patient. I reviewed the resident's note. I agree with the resident's assessment and plan unless otherwise noted. Signature: Yodit Fuchs MD Date: 07/28/2023 Time: 3:52 PM ----- OBSTETRICS HISTORY AND PHYSICAL SERVICE DATE: July 27, 2023 SERVICE TIME: 6:09 PM Subjective Patient's stated reason for arrival: "to be induced" HISTORY OF THE PRESENT ILLNESS: The patient [...] cephalic, (more content not included)... Normal [facility] TYPE + SCREEN PRENATALon ABO B Normal [facility] Comment on above: Order Comment: Speci men Type: BLOOD SPECIMENOrdering Facility: [facility] Address: [address] [place] [address] Performed By: #### T SPN ####[facility] BLOOD BANKCLIA [id number] [address] HISTORICAL AB SCR STATUS Negative Normal [facility] Comment on above: Order Comment: Speci men Type: BLOOD SPECIMENOrdering Facility: [facility] Address: [address] [place] [address] Performed By: #### T SPN ####[facility] BLOOD BANKCLIA [id number] [address] [place] Rh Nom (Bld) Positive Normal [facility] Comment on above: Order Comment: Speci men Type: BLOOD SPECIMENOrdering Facility: [facility] Address: [address] [place] [address] Performed By: #### T SPN ####[facility] BLOOD BANKCLIA [id number] [address] [place] TYPE AND SCREEN EXPIRATION 07/30/2023 23:59 Normal [facility] Comment on above: Order Comment: Speci men Type: BLOOD SPECIMENOrdering Facility: [facility] Address: [address] [place] [address] Performed By: #### T SPN ####[facility] BLOOD BANKCLIA [id number] [address] [place] CBC panel Auto (Bld)on 07-26 Erythrocyte distribution width (RBC) [Ratio] 11.9 % Normal 11.5-15.0 [facility] Comment on above: Order Comment: Speci men Type: BLOOD SPECIMEN [facility] Address: [address] [place] [address] Performed By: #### 5 8410-2 #### [facility] CLIA [id number] [address] Hematocrit (Bld) [Volume fraction] 39.1 % Normal 36.0-46.0 [facility] Comment on above: Order Comment: Speci men Type: BLOOD SPECIMEN [facility]ing [facility] Address: [address] [place] [address] Performed By: #### 5 8410-2 #### [facility] CLIA [id number] [address] [place] Hemoglobin (Bld) [Mass/Vol] 13.8 g/dL Normal 11.5-15.5 [facility] Comment on above: Order Comment: Speci men Type: BLOOD SPECIMEN [facility]ing [facility] Address: [address] [place] [address] Performed By: #### 5 8410-2 #### [facility] CLIA [id number] [address] STATES OF [facility] MCH (RBC) [Entitic mass] 30.3 pg Normal 26.0-34.0 [facility] Comment on above: Order Comment: Speci men Type: BLOOD SPECIMEN Ordering [facility] Address: [address] [place] [address] Performed By: #### 5 8410-2 #### [facility] CLIA [id number] [address] [place] MCHC (RBC) [Mass/Vol] 35.3 g/dL Normal 30.5-36.0 [facility] Comment on above: Order Comment: Speci men Type: BLOOD SPECIMEN [facility]ing [facility] Address: [address] [place] [address] Performed By: #### 5 8410-2 #### [facility] CLIA [id number] [address] [place] MCV (RBC) [Entitic vol] 85.7 fL Normal 80.0-100.0 [facility] Comment on above: Order Comment: Speci men Type: BLOOD SPECIMEN [facility]ing [facility] Address: [address] [place] [address] Performed By: #### 5 8410-2 #### [facility] CLIA [id number] [address] [place] Nucleated RBC (Bld) [#/Vol] 10*3/uL Normal <0.01 [facility] Comment on above: Order Comment: Speci men Type: BLOOD SPECIMEN [facility]ing [facility] Address: [address] [place] [address] Performed By: #### 5 8410-2 #### [facility] CLIA [id number] [address] [place] Platelet mean volume (Bld) [Entitic vol] 12.3 fL Normal 9.0-12.7 [facility] Comment on above: Order Comment: Speci men Type: BLOOD SPECIMEN [facility]ing [facility] Address: [address] [place] [address] Performed By: #### 5 8410-2 #### [facility] CLIA [id number] [address] [place] Platelets (Bld) [#/Vol] 211 10*3/uL Normal 150-400 [facility] Comment on above: Order Comment: Speci men Type: BLOOD SPECIMEN [facility] Address: [address] [place] [address] Performed By: #### 5 8410-2 #### [facility] CLIA [id number] [address] [place] RBC (Bld) [#/Vol] 4.56 10*6/uL Normal 3.90-5.20 [facility] Comment on above: Order Comment: Speci men Type: BLOOD SPECIMEN [facility] Address: [address] [place] [address] Performed By: #### 5 8410-2 #### [facility] CLIA [id number] [address] [place] WBC (Bld) [#/Vol] 11.02 10*3/uL High 3.70-11.00 [facility] Comment on above: Order Comment: Speci men Type: BLOOD SPECIMEN [facility] Address: [address] [place] [address] Performed By: #### 5 8410-2 #### [facility] CLIA [id number] [address] Comprehensive metabolic 2000 panelon 07-26-2023 Albumin [Mass/Vol] 3.7 g/dL Low 3.9-4.9 [facility] Comment on above: Order Comment: Speci men Type: BLOOD SPECIMEN [facility] Address: [address] [place] [address] Performed By: #### 2 4323-8 #### [facility] CLIA [id number] [address] STATES OF [facility] ALP [Catalytic activity/Vol] 247 U/L High 34-123 [facility] Comment on above: Order Comment: Speci men Type: BLOOD SPECIMEN [facility] Address: [address] [place] [address] Performed By: #### 2 4323-8 #### [facility] CLIA [id number] [address] ALT With P-5'-P [Catalytic activity/Vol] 15 U/L Normal 7-38 [facility] Comment on above: Order Comment: Speci men Type: BLOOD SPECIMEN [facility] Address: [address] [place] [address] Performed By: #### 2 4323-8 #### [facility] CLIA [id number] [address] Anion gap [Moles/Vol] 14 mmol/L Normal 9-18 [facility] Comment on above: Order Comment: Speci men Type: BLOOD SPECIMEN [facility] Address: [address] [place] [address] Performed By: #### 2 4323-8 #### [facility] CLIA [id number] [address] [place] AST With P-5'-P [Catalytic activity/Vol] 19 U/L Normal 13-35 [facility] Comment on above: Order Comment: Speci men Type: BLOOD SPECIMEN [facility] Address: [address] [place] [address] Performed By: #### 2 4323-8 #### [facility] CLIA [id number] [address] [place] Bilirubin [Mass/Vol] 0.2 mg/dL Normal 0.2-1.3 [facility] Comment on above: Order Comment: Speci men Type: BLOOD SPECIMEN [facility]ing [facility] Address: [address] [place] [address] Performed By: #### 2 4323-8 #### [facility] CLIA [id number] [address] [place] Calcium [Mass/Vol] 9.0 mg/dL Normal 8.5-10.2 [facility] Comment on above: Order Comment: Speci men Type: BLOOD SPECIMEN [facility]ing [facility] Address: [address] [place] [address] Performed By: #### 2 4323-8 #### [facility] CLIA [id number] [address] [place] Chloride [Moles/Vol] 101 mmol/L Normal 97-105 [facility] Comment on above: Order Comment: Speci men Type: BLOOD SPECIMEN [facility]ing [facility] Address: [address] [place] [address] Performed By: #### 2 4323-8 #### [facility] CLIA [id number] [address] [place] CO2 [Moles/Vol] 20 mmol/L Low 22-30 [facility] Comment on above: Order Comment: Speci men Type: BLOOD SPECIMEN [facility]ing [facility] Address: [address] [place] [address] Performed By: #### 2 4323-8 #### [facility] CLIA [id number] [address] [place] Creatinine [Mass/Vol] 0.54 mg/dL Low 0.58-0.96 [facility] Comment on above: Order Comment: Wiley escobedo Type: BLOOD SPECIMEN [facility]ing [facility]: [facility] Address: [address] [place] [address] Performed By: #### 2 4323-8 #### [facility] CLIA [id number] [address] Creatinine and Glomerular filtration rate.predicted panel (S/P/Bld) 135 mL/min/1.73m??? Normal >=60 [facility] Comment on above: Order Comment: Wiley escobedo Type: BLOOD SPECIMEN [facility]ing [facility] Address: [address] [place] [address] Result Comment: Isela mated Glomerular Filtration Rate [...] GFR. Performed By: #### 2 4323-8 #### [facility] CLIA [id number] [address] [place] Glucose [Mass/Vol] 71 mg/dL Low 74-99 [facility] Comment on above: Order Comment: Wiley escobedo Type: BLOOD SPECIMEN [facility] Address: [address] [place] [address] Result Comment: The [place] Diabetes Association (ADA) provides guidance for cutoff [...] Standards of Medical Care in Diabetes 2016, [place] [employer]. Diabetes Care. 2016.39(Suppl 1). Performed By: #### 2 4323-8 #### [facility] CLIA [id number] [address] STATES OF [facility] Potassium [Moles/Vol] 3.7 mmol/L Normal 3.7-5.1 [facility] Comment on above: Order Comment: Speci men Type: BLOOD SPECIMEN [facility]ing [facility] Address: [address] [place] [address] Performed By: #### 2 432-8 #### [facility] CLIA [id number] [address] [place] Protein [Mass/Vol] 6.8 g/dL Normal 6.3-8.0 [facility] Comment on above: Order Comment: Speci men Type: BLOOD SPECIMEN [facility]ing [facility] Address: [address] [place] [address] Performed By: #### 2 432-8 #### [facility] CLIA [id number] [address] [place] Sodium [Moles/Vol] 135 mmol/L Low 136-144 [facility] Comment on above: Order Comment: Speci men Type: BLOOD SPECIMEN [facility]ing [facility]: [facility] Address: [address] [place] [address] Performed By: #### 2 432-8 #### [facility] CLIA [id number] [address] [place] Urea nitrogen [Mass/Vol] 13 mg/dL Normal 7-21 [facility] Comment on above: Order Comment: Speci men Type: BLOOD SPECIMEN [facility]ing [facility] Address: [address] [place] [address] Performed By: #### 2 4323-8 #### [facility] CLIA [id number] [address] [place] Prot/Creat Uron 07-26-2023 Protein/Creatinine (U) [Mass ratio] 0.11 mg/mg Normal <0.15 [facility] Comment on above: Order Comment: Speci men Type: URINE SPECIMEN Ordering [facility]: [facility] Address: [address] [place] [address] Result Comment: Adul t Proteinuria Categories: <0.15 mg/mg is considered normal to mildly increased 0.15 - 0.50 mg/mg is considered moderately increased >0.50 mg/mg is considered severely increased KDIGO. (2013). KDIGO 2012 Clinical Practice Guideline for the Evaluation and Management of Chronic Kidney Disease. Official Journal of the International Society of Nephrology, 3(1), 1-150. Performed By: #### 2 890-2 #### [facility] CLIA [id number] [address] [place] [address] [place] Protein/Creatinine (U) [Mass ratio]on 07-26-2023 Creatinine (U) [Mass/Vol] 56.9 mg/dL Normal 42.2-237.9 [facility] Comment on above: Order Comment: Speci men Type: URINE SPECIMEN Ordering [facility]: [facility] Address: [address] [place] [address] Performed By: #### 2 890-2 #### [facility] CLIA [id number] [address] [place] Protein (U) [Mass/Vol] 6 mg/dL Normal 0-20 [facility] Comment on above: Order Comment: Speci men Type: URINE SPECIMEN Ordering [facility]: [facility] Address: [address] [place] [address] Performed By: #### 2 890-2 #### [facility] CLIA [id number] 1 [place] [address] [place] Prot/Creat Uron 07-23-2023 Protein/Creatinine (U) [Mass ratio] 0.10 mg/mg Normal <0.15 [facility] Comment on above: Order Comment: Speci men Type: URINE SPECIMEN [facility]ing [facility] Address: [address] [place] [address] Result Comment: Adul t Proteinuria Categories: <0.15 mg/mg is considered normal to mildly increased 0.15 - 0.50 mg/mg is considered moderately increased >0.50 mg/mg is considered severely increased KDIGO. (2013). KDIGO 2012 Clinical Practice Guideline for the Evaluation and Management of Chronic Kidney Disease. Official Journal of the International Society of Nephrology, 3(1), 1-150. Performed By: #### 2 890-2 #### [facility] CLIA [id number] [facility] [place] [address] [place] Protein/Creatinine (U) [Mass ratio]on 07-23-2023 Creatinine (U) [Mass/Vol] 420.4 mg/dL High 20.0-300.0 [facility] Comment on above: Order Comment: Speci men Type: URINE SPECIMEN Ordering [facility] Address: [address] [place] [address] Performed By: #### 2 890-2 #### [facility] CLIA [id number] [address] [place] [address] [place] Protein (U) [Mass/Vol] 41 mg/dL High 0-20 [facility] Comment on above: Order Comment: Speci men Type: URINE SPECIMEN [facility]ing [facility] Address: [address] [place] [address] Performed By: #### 2 890-2 #### [facility] CLIA [id number] [facility] [place] [address] [place] URINE OB DIP B/Oon 3 Glucose Ql (U) Negative Neg mg/dL [facility] Protein.monoclonal (U) [Mass/Vol] 30 mg/dL Abnormal Neg mg/dL [facility] URINE OB DIP B/Oon 3 Glucose Ql (U) Negative Neg mg/dL [facility] Protein.monoclonal (U) [Mass/Vol] Trace Neg mg/dL [facility] URINE OB DIP B/Oon 3 Glucose Ql (U) Negative Neg mg/dL [facility] Protein.monoclonal (U) [Mass/Vol] Negative Neg mg/dL [facility] Reagin and Treponema pallidu m IgG and IgM [Interp]on 06-26-2023 T. pallidum IgG+IgM IA Ql (S) Non-Reactive Nonreactive [facility] SYPHILIS TOTAL W/REFLEXon Reagin and Treponema pallidum IgG and IgM [Interp] Cannot exclude recent Treponemal infection if specimen collected within 7-10 days after appearance of suspect lesions or 2-3 weeks after an exposure. Clinical correlation is required. [facility] CBC panel Auto (Bld)on 06-25 Erythrocyte distribution width (RBC) [Ratio] 12.2 % 11.5 - 15.0 % [facility] Hematocrit (Bld) [Volume fraction] 36.0 % 36.0 - 46.0 % [facility] Hemoglobin (Bld) [Mass/Vol] 13.1 g/dL 11.5 - 15.5 g/dL [facility] MCH (RBC) [Entitic mass] 31.3 pg 26.0 - 34.0 pg [facility] MCHC (RBC) [Mass/Vol] 36.4 g/dL High 30.5 - 36.0 g/dL [facility] MCV (RBC) [Entitic vol] 85.9 fL 80.0 - 100.0 fL [facility] Nucleated RBC (Bld) [#/Vol] <0.01 k/uL [facility] Platelet mean volume (Bld) [Entitic vol] 11.7 fL 9.0 - 12.7 fL [facility] Platelets (Bld) [#/Vol] 208 10*3/uL 150 - 400 k/uL [facility] RBC (Bld) [#/Vol] 4.19 10*6/uL 3.90 - 5.20 m/uL [facility] WBC (Bld) [#/Vol] 9.19 10*3/uL 3.70 - 11. 00 k/uL [facility] Comprehensive metabolic 2000 panelon 06-25-2023 Albumin [Mass/Vol] 3.5 g/dL Low 3.9 - 4.9 g/dL [facility] ALP [Catalytic activity/Vol] 160 U/L High 34 - 123 U/L [facility] ALT [Catalytic activity/Vol] 22 U/L 7 - 38 U/L [facility] Anion gap [Moles/Vol] 14 mmol/L 9 - 18 mmol/L [facility] AST [Catalytic activity/Vol] 18 U/L 13 - 35 U/L [facility] Bilirubin [Mass/Vol] 0.2 mg/dL 0.2 - 1.3 mg/dL [facility] Calcium [Mass/Vol] 8.7 mg/dL 8.5 - 10.2 mg/dL [facility] Chloride [Moles/Vol] 103 mmol/L 97 - 105 mmol/L [facility] CO2 [Moles/Vol] 21 mmol/L Low 22 - 30 mmol/L [facility] Creatinine [Mass/Vol] 0.53 mg/dL Low 0.58 - 0.96 mg/dL [facility] Estimated Glomerular Filtration Rate 136 mL/min/1.73m >=60 mL/min/1.73m [facility] Glucose [Mass/Vol] 124 mg/dL High 74 - 99 mg/dL [facility] Potassium [Moles/Vol] 3.5 mmol/L Low 3.7 - 5.1 mmol/L [facility] Protein [Mass/Vol] 6.2 g/dL Low 6.3 - 8.0 g/dL [facility] Sodium [Moles/Vol] 138 mmol/L 136 - 144 mmol/L [facility] Urea nitrogen [Mass/Vol] 9 mg/dL 7 - 21 mg/dL [facility] URINE OB DIP B/Oon 3 Glucose Ql (U) Negative Neg mg/dL [facility] Protein.monoclonal (U) [Mass/Vol] TRACE Abnormal Neg mg/dL [facility] STREP A MOLECULAR (POC)on Procedural Control Valid [facility] Strep A (POCT) Negative Negative [facility] URINE OB DIP B/Oon 3 Glucose Ql (U) Negative Neg mg/dL [facility] Protein.monoclonal (U) [Mass/Vol] Negative Neg mg/dL [facility] COVID NAAT, ROUTINEon 2022 SARS-CoV-2 (COVID-19) RNA TESS+probe Ql (Resp) Not detected See comment [facility] ROUTINE FLU A/B + RSVon 05-04 FLUAV RNA TESS+probe Ql (Unsp spec) Not detected Not Detected [facility] FLUBV RNA TESS+probe Ql (Unsp spec) Not detected Not Detected [facility] RSV A RNA TESS+probe Ql (Unsp spec) Not detected Not Detected [facility] STREP A MOLECULAR (POC)on Procedural Control Valid [facility] Strep A (POCT) Negative Negative [facility] URINE OB DIP B/Oon 3 Glucose Ql (U) Negative Neg mg/dL [facility] Protein.monoclonal (U) [Mass/Vol] Negative Neg mg/dL [facility] OBSTETRIC ULTRASOUND WHIon 0 03-19-2023 [facility] URINE OB DIP B/Oon 3 Glucose Ql (U) Negative Neg mg/dL [facility] Protein.monoclonal (U) [Mass/Vol] Negative Neg mg/dL [facility] [id number] PLUSon 01-25-2023 Cell-free DNA./Cell-alicia e DNA.total Dosage of chromosome-specifi c cfDNA (cfDNA) [Molar fraction] 6% Normal [facility] Comment on above: Order Comment: Speci men Type: BLOOD SPECIMEN Ordering Facility[facility] Address: [address] [place] [address] Performed By: #### M AT21 #### [facility] CLIA [id number] [address] [place] [address] Chr 13+18+21+X+Y aneuploidy Dosage of chromosome-specifi c cfDNA Ql (cfDNA) Negative Normal [facility] Comment on above: Order Comment: Speci men Type: BLOOD SPECIMEN Ordering Facility: [facility] Address: [address] [place] [address] Performed By: #### M AT21 #### [facility] CLIA [id number] [address] [place] [address] Chr 21 trisomy Dosage of chromosome-specifi c cfDNA Ql (cfDNA) Negative Normal [facility] Comment on above: Order Comment: Speci men Type: BLOOD SPECIMEN Ordering Facility: [facility] Address: [address] [place] [address] Performed By: #### M AT21 #### [facility] CLIA [id number] [address] [place] [address] Chr X and Y aneuploidy risk Sequencing Ql (cfDNA) [Interp] Not detected Normal [facility] Comment on above: Order Comment: Speci men Type: BLOOD SPECIMEN Ordering Facility: [facility] Address: [address] [place] [address] Result Comment: Not Detected Not Detected Performed By: #### M AT21 #### [facility] CLIA [id number] [address] [place] [address] Citation Andrew (Reference lab test) Comment Normal [facility] Comment on above: Order Comment: Speci men Type: BLOOD SPECIMEN Ordering Facility: [facility] Address: [address] [place] [address] Result Comment: 1. P lazaro KELLER, et al. Ana Med. 2012;14(3):296-305. 2. Cherelle MAGANA et al. Prenat Diag. 2013;33(6):591-597. 3. Mohit C, et al. Clin Chem. 2015 Apr;61(4):608-616. 4. Jax KELLER, et al. Ana Med. 2011;13(11):913-920. 5. ACOG/SMFM Practice Bulletin No. 226, Jul 2020. Performed By: #### M AT21 #### [facility] CLIA [id number] [address] [id number] Gestational age Estimated from conception date Senior [facility] Comment on above: Order Comment: Speci men Type: BLOOD SPECIMEN Ordering Facility: [facility] Address: [address] [place] [address] Performed By: #### M AT21 #### [facility] CLIA [id number] [address] [place] [address] GESTATIONALAGE AGE > OR = 9W Yes Normal [facility] Comment on above: Order Comment: Speci men Type: BLOOD SPECIMEN Ordering Facility: [facility] Address: [address] [place] [address] Performed By: #### M AT21 #### [facility] CLIA [id number] [address] [place] [address] Laboratory comment Andrew (Report) Comment Normal [facility] Comment on above: Order Comment: Wiley escobedo Type: BLOOD SPECIMEN Ordering Facility: [facility] Address: [address] [place] [address] Result Comment: The MaterniT(R) 21 PLUS laboratory-developed test (LDT) analyzes circulating cell-free DNA from a maternal blood sample. This test is used for screening purposes and not diagnostic. Clinical correlation is recommended. Validation data on twin pregnancies is limited and the ability of this test to detect aneuploidy in higher multiple gestations has not yet been validated. Performed By: #### M AT21 #### [facility] CLIA [id number] [address] [id number] director of industrial relations name Nom (Provider) Comment [facility] Comment on above: Order Comment: Wiley escobedo Type: BLOOD SPECIMEN Ordering Facility: [facility] Address: [address] [place] [address] Result Comment: This specimen showed an expected representation of chromosome 21, 18 and 13 material. Clinical correlation is suggested. Comment Jorge Bhatti MD, PhD, Director, [employer] Performed By: #### M AT21 #### [facility] CLIA [id number] [address] [place] [address] LIMITATIONS OF THE TEST Comment [facility] Comment on above: Order Comment: Wiley escobedo Type: BLOOD SPECIMEN Ordering Facility: [facility] Address: [address] [place] [address] Result Comment: Whil e the results of these tests are [...] Fragmin(R)). Performed By: #### M AT21 #### [facility] CLIA [id number] [address] [place] [address] Monosomy X risk Dosage of chromosome-specifi c cfDNA Ql (Plasma cell-free+WBC DNA) [Interp] Not detected Normal [facility] Comment on above: Order Comment: Wiley escobedo Type: BLOOD SPECIMEN Ordering Facility: [facility] Address: [address] [place] [address] Performed By: #### M AT21 #### [facility] CLIA [id number] [address] [place] [address] NEGATIVE PREDICTIVE VALUE Note Normal [facility] Comment on above: Order Comment: Wiley escobedo Type: BLOOD SPECIMEN Ordering Facility: [facility] Address: [address] [id number] Result Comment: The Negative Predictive Value (NPV) for trisomy 21, 18, and 13 is greater than 99%. The NPV for SCA and ESS cannot be calculated as SCA and ESS are only reported when an abnormality is detected. Performed By: #### M AT21 #### [facility] CLIA [id number] [address] [place] [address] NOTE Comment Normal [facility] Comment on above: Order Comment: Specjessy men Type: BLOOD SPECIMEN Ordering Facility: [facility] Address: [address] [id number] Result Comment: See Notes [employer] is a subsidiary of [employer], using the brand [employer]. This test was developed and its performance characteristics determined by [employer]. It has not been cleared or approved by the Food and Drug Administration. This laboratory is certified under the Clinical Laboratory Improvement Amendments (CLIA) as qualified to perform high complexity clinical laboratory testing and accredited by the [employer] (CAP). If there is future clinical need for adding MaterniT GENOME testing, this specimen will be available until term. [facility] samples will not be retained beyond 60 days. [facility] patients will have to send a new sample for re-sequencing ([facility] Test Code: [id number]). Performed By: #### M AT21 #### [facility] CLIA [id number] [address] [id number] PERFORMANCE CHARACTERISTICS Note [facility] Comment on above: Order Comment: Wiley escobedo Type: BLOOD SPECIMEN Ordering Facility: [facility] Address: [address] [place] [address] Result Comment: ! Sex ! Accuracy: 99.4% [...] ! ! ! * As reported in [employer] database nstd37 [https://www.ncbi.nlm.nih.gov/dbvar/studies/nstd37/ ] # Estimated Sensitivity. [...] only. Performed By: #### M AT21 #### [facility] CLIA [id number] [address] [place] [address] POSITIVE PREDICTIVE VALUE N/A [facility] Comment on above: Order Comment: Speci men Type: BLOOD SPECIMEN Ordering Facility: [facility] Address: [address] [address] Performed By: #### M AT21 #### [facility] CLIA [id number] [address] [id number] Reference Lab Test Method Comment [facility] Comment on above: Order Comment: Speci men Type: BLOOD SPECIMEN Ordering Facility: [facility] Address: [address] [place] [address] Result Comment: See Notes Circulating cell-free DNA [...] 22. Performed By: #### M AT21 #### [facility] CLIA [id number] [address] [id number] Sex Dosage of chromosome-specifi c cfDNA Nom (cfDNA) Comment [facility] Comment on above: Order Comment: Speci men Type: BLOOD SPECIMEN Ordering Facility: [facility] Address: [address] [address] Result Comment: Cons istent with Male Performed By: #### M AT21 #### [facility] CLIA [id number] [address] [place] [address] Test performance information Andrew (Unsp spec) Comment [facility] Comment on above: Order Comment: Speci men Type: BLOOD SPECIMEN Ordering Facility: [facility] Address: [address] [place] [address] Result Comment: The performance characteristics of the MaterniT(R) 21 PLUS laboratory-developed test (LDT) have been determined in a clinical validation study with women at increased risk for chromosomal aneuploidy.[1-4] Performed By: #### M AT21 #### [facility] CLIA [id number] [address] [place] [address] Trisomy 13 risk Dosage of chromosome-specifi c cfDNA Ql (cfDNA) [Interp] Negative Normal [facility] Comment on above: Order Comment: Speci men Type: BLOOD SPECIMEN Ordering Facility: [facility] Address: [address] [place] [address] Performed By: #### M AT21 #### [facility] CLIA [id number] [address] [place] [address] Trisomy 18 risk Dosage of chromosome-specifi c cfDNA Ql (Plasma cell-free+WBC DNA) [Interp] Negative Normal [facility] Comment on above: Order Comment: Speci men Type: BLOOD SPECIMEN Ordering Facility: [facility] Address: [address] [place] [address] Performed By: #### M AT21 #### [facility] CLIA [id number] [address] [place] [address] URINE CULTUREon 12-26-2022 Bacteria identified Cx Nom (U) 50,000-<100,000 CFU/ml Normal urogenital kathy [facility] C. trachomatis+N. gonorrhoea e DNA TESS+probe Ql (U)on 12-25-2022 C. trachomatis DNA TESS+probe Ql (Unsp spec) Negative Negative for Chlamydia trachomatis by amplificaton [facility] N. gonorrhoeae DNA TESS+probe Ql (Unsp spec) Negative Negative for Neisseria gonorrhoeae by amplification [facility] CBC panel Auto (Bld)on 12-25 Erythrocyte distribution width (RBC) [Ratio] 12.0 % 11.5 - 15.0 % [facility] Hematocrit (Bld) [Volume fraction] 42.7 % 36.0 - 46.0 % [facility] Hemoglobin (Bld) [Mass/Vol] 14.6 g/dL 11.5 - 15.5 g/dL [facility] MCH (RBC) [Entitic mass] 29.5 pg 26.0 - 34.0 pg [facility] MCHC (RBC) [Mass/Vol] 34.2 g/dL 30.5 - 36.0 g/dL [facility] MCV (RBC) [Entitic vol] 86.3 fL 80.0 - 100.0 fL [facility] Nucleated RBC (Bld) [#/Vol] <0.01 k/uL [facility] Platelet mean volume (Bld) [Entitic vol] 11.1 fL 9.0 - 12.7 fL [facility] Platelets (Bld) [#/Vol] 226 10*3/uL 150 - 400 k/uL [facility] RBC (Bld) [#/Vol] 4.95 10*6/uL 3.90 - 5.20 m/uL [facility] WBC (Bld) [#/Vol] 8.70 10*3/uL 3.70 - 11. 00 k/uL [facility] HEP B SURF AG [facility] 023 HBV surface Ag Ql (S) Negative Negative [facility] HEP C AB IA W/CONF [facility] HCV Ab Ql (S) Negative Negative [facility] HIV 1+2 Ab IA Qlon HIV 1 and 2 Ab IA.rapid Nom [facility] HIV 1+2 Ab+HIV1 p24 Ag IA Ql Non-Reactive Nonreactive [facility] HIV Interpretation [facility] RUBELLA IGG ABon 12-25-2022 Rubella IgG, Qual Positive Positive [facility] Reagin and Treponema pallidu m IgG and IgM [Interp]on 12-25-2022 Syphilis Interpretation Cannot exclude recent Treponemal infection if specimen collected within 7-10 days after appearance of suspect lesions or 2-3 weeks after an exposure. Clinical correlation is required. [facility] T. pallidum IgG+IgM IA Ql (S) Non-Reactive Nonreactive [facility] TSH BLDon 12-25-2022 TSH Qn 0.951 m[IU]/L 0.510 - 4.300 mIU/L [facility] TYPE + SCREEN PRENATALon ABO B [facility] HIstorical Ab Scr Status Negative [facility] Rh Nom (Bld) Positive [facility] Type and Screen Expiration 12/28/2022 23:59 [facility] URINE OB DIP B/Oon Glucose Ql (U) Negative Neg mg/dL [facility] Protein.monoclonal (U) [Mass/Vol] Negative Neg mg/dL [facility] HCG QUAL UR B/Oon 11-30-2022 status Positive neg - pos Talita barbour [facility] Quality Check Yes [facility] CNPNon 11-10-2022 [facility] ----- NATA PENALOZA ( ) 02 F [facility] Date Time Provider Department 11/10/22 WESLEY RODRÍGUEZ [facility] During your visit today, we recorded the following information about you: Wesley Rodríguez [facility] 11/10/2022 9:35 AM Signed I called [...] Encounter Status:Closed by WESLEY RODRÍGUEZ on 11/10/22 [facility] URINE CULTUREon 10-04-2022 Bacteria identified Cx Nom (U) >=100,000 CFU/ml Normal urogenital kathy [facility] BACTERIAL VAGINOSIS AMPLIFIC ATIONon 10-03-2022 Lactobacillus crispatus+gasseri+ jensenii + Gardnerella vaginalis + Atopobium vaginae rRNA TESS+probe Ql (Vag fld) Positive Abnormal Negative for bacterial vaginosis [facility] C. trachomatis+N. gonorrhoea e DNA TESS+probe Ql (Unsp spec)on 10-03-2022 C. trachomatis DNA TESS+probe Ql (Unsp spec) Negative Negative for Chlamydia trachomatis by amplificaton [facility] N. gonorrhoeae DNA TESS+probe Ql (Unsp spec) Negative Negative for Neisseria gonorrhoeae by amplification [facility] JOHN / TRICHOMONAS AMPLIF ICATIONon 10-03-2022 C. glabrata RNA TESS+probe Ql (Vag fld) Negative Negative for John glabrata [facility] John albicans, C. dubliniensis, C. parapsilosis, and C. tropicalis RNA TESS+probe Ql (Vag fld) Positive Abnormal Negative for John species [facility] T. vaginalis DNA TESS+probe Ql (Unsp spec) Negative Negative for Trichomonas vaginalis by amplification [facility] HCG QUAL UR B/Oon 10-02-2022 status Negative neg - pos [facility] Quality Check Yes [facility] UA DIP, URINE (POC)on 2021 BILIRUBIN UA (POCT) Negative Negative [facility] CLARITY UA (POCT) Clear [facility] COLOR UA (POCT) Dark yellow [facility] GLUCOSE UA (POCT) Negative Negative mg/dL [facility] HEMOGLOBIN/BLOOD UA (POCT) Negative Negative [facility] KETONE UA (POCT) Negative Negative mg/dL [facility] LEUKOCYTES UA (POCT) Trace Abnormal Negative [facility] NITRITE UA (POCT) Negative Negative [facility] PH UA (POCT) 5.0 4.5 - 8.0 [facility] Protein Ql (U) Negative Negative mg/dL [facility] SPECIFIC GRAVITY UA (POCT) 1.025 1.005 - 1.030 [facility] UROBILINOGEN UA (POCT) 0.2 E.U./dL Normal E.U./dL [facility] HCG QUAL UR B/Oon 07-16-2022 status Negative neg - pos [facility] Quality Check Yes [facility] UA DIP, URINE (POC)on 2021 BILIRUBIN UA (POCT) Negative Negative [facility] CLARITY UA (POCT) Cloudy [facility] COLOR UA (POCT) Other [facility] GLUCOSE UA (POCT) Negative Negative mg/dL [facility] HEMOGLOBIN/BLOOD UA (POCT) Negative Negative [facility] KETONE UA (POCT) Negative Negative mg/dL [facility] LEUKOCYTES UA (POCT) Negative Negative [facility] NITRITE UA (POCT) Negative Negative [facility] PH UA (POCT) 6.0 4.5 - 8.0 [facility] Protein Ql (U) Negative Negative mg/dL [facility] SPECIFIC GRAVITY UA (POCT) >=1.030 1.005 - 1.030 [facility] UROBILINOGEN UA (POCT) 0.2 E.U./dL Normal E.U./dL [facility] XR THORACIC GENERAL 3V AP/LA T/SWIMMERSon 07-03-2022 [facility] UA DIP, URINE (POC)on 2021 BILIRUBIN UA (POCT) Negative Negative [facility] CLARITY UA (POCT) Clear [facility] COLOR UA (POCT) Yellow [facility] GLUCOSE UA (POCT) Negative Negative mg/dL [facility] HEMOGLOBIN/BLOOD UA (POCT) Moderate Abnormal Negative [facility] KETONE UA (POCT) Trace Negative mg/dL [facility] LEUKOC[facility]TES UA (POCT) Small Abnormal Negative [facility] NITRITE UA (POCT) Positive Abnormal Negative [facility] PH UA (POCT) 6.5 4.5 - 8.0 [facility] Protein Ql (U) 30 mg/dL Abnormal Negative mg/dL [facility] SPECIFIC GRAVITY UA (POCT) 1.025 1.005 - 1.030 [facility] UROBILINOGEN UA (POCT) 1.0 E.U./dL Normal E.U./dL [facility] Vital Signs Date Time Vital Sign Value Performing Clinician Faci lity 07-11-2024 12:49-0400 Body mass index (BMI) [Ratio] 23.41 kg/m2 Linda Arlen DIRECTOR OF QUALITY 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 Work Phone: [facility] 07-11-2024 12:49-0400 Body weight 61.87 kg Linda [place] DIRECTOR OF QUALITY 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 Work Phone: [facility] 07-11-2024 12:49-0400 Diastolic blood pressure 78 mm[Hg] Linda Arlen DIRECTOR OF QUALITY 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 Work Phone: [facility] 07-11-2024 12:49-0400 Systolic blood pressure 126 mm[Hg] Linda Arlen DIRECTOR OF QUALITY 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 Work Phone: [facility] 01-24-2024 15:29-0400 Body mass index (BMI) [Ratio] 22.52 kg/m2 Bharathi Estrada MD Work Phone: [facility] 01-24-2024 15:29-0400 Body weight 59.51 kg Bharathi Estrada MD Work Phone: [facility] 01-24-2024 15:29-0400 Diastolic blood pressure 70 mm[Hg] Bharathi Estrada MD Work Phone: [facility] 01-24-2024 15:29-0400 Systolic blood pressure 110 mm[Hg] Bharathi Estrada MD Work Phone: [facility] 11-23-2023 12:02-0500 Body temperature 97.81 [degF] Jeannine Vo DIRECTOR OF QUALITY 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 Work Phone: [facility] 11-23-2023 12:02-0500 Diastolic blood pressure 79 mm[Hg] Jeannine Vo DIRECTOR OF QUALITY 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 Work Phone: [facility] 11-23-2023 12:02-0500 Heart rate 69 /min Jeannien Vo DIRECTOR OF QUALITY 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 Work Phone: [facility] 11-23-2023 12:02-0500 Systolic blood pressure 116 mm[Hg] Jeannine Vo DIRECTOR OF QUALITY 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 Work Phone: [facility] 08-19-2023 10:33-0500 Body weight 65.3 kg Elysia Collier MD Work Phone: [facility] 08-19-2023 10:33-0500 Diastolic blood pressure 62 mm[Hg] Elysia Collier MD Work Phone: [facility] 08-19-2023 10:33-0500 Respiratory rate 18 /min Elysia Collier MD Work Phone: [facility] 08-19-2023 10:33-0500 Systolic blood pressure 128 mm[Hg] Elysia Collier MD Work Phone: [facility] 08-04-2023 16:00-0400 Diastolic blood pressure 78 mm[Hg] Nurse Gwendolyn Work Phone: [facility] 08-04-2023 16:00-0400 Systolic blood pressure 128 mm[Hg] Nurse Gwendolyn Work Phone: [facility] 07-23-2023 14:50-0400 Body weight 74.11 kg Remi Powell MD Work Phone: [facility] 07-23-2023 14:50-0400 Diastolic blood pressure 74 mm[Hg] Remi Powell MD Work Phone: [facility] 07-23-2023 14:50-0400 Respiratory rate 18 /min Remi Powell MD Work Phone: [facility] 07-23-2023 14:50-0400 Systolic blood pressure 130 mm[Hg] Remi Powell MD Work Phone: [facility] 07-16-2023 16:13-0400 Body weight 74.03 kg Remi Powell MD Work Phone: [facility] 07-16-2023 16:13-0400 Diastolic blood pressure 68 mm[Hg] Remi Powell MD Work Phone: [facility] 07-16-2023 16:13-0400 Systolic blood pressure 116 mm[Hg] Remi Powell MD Work Phone: [facility] 07-01-2023 15:33-0400 Body weight 74.03 kg Remi Powell MD Work Phone: [facility] 07-01-2023 15:33-0400 Diastolic blood pressure 64 mm[Hg] Remi Powell MD Work Phone: [facility] 07-01-2023 15:33-0400 Systolic blood pressure 102 mm[Hg] Remi Powell MD Work Phone: [facility] 06-25-2023 15:17-0400 Body weight 73.23 kg Elysia Collier MD Work Phone: [facility] 06-25-2023 15:17-0400 Diastolic blood pressure 80 mm[Hg] Elysia Collier MD Work Phone: [facility] 06-25-2023 15:17-0400 Respiratory rate 18 /min Elysia Collier MD Work Phone: [facility] 06-25-2023 15:17-0400 Systolic blood pressure 130 mm[Hg] Elysia Collier MD Work Phone: [facility] 05-26-2023 18:47-0400 Body temperature 98.29 [degF] Tonya Gerardo DIRECTOR OF QUALITY 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 Work Phone: [facility] 05-26-2023 18:47-0400 Body weight 73.39 kg Tonya Gerardo DIRECTOR OF QUALITY 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 Work Phone: [facility] 05-26-2023 18:47-0400 Diastolic blood pressure 76 mm[Hg] Tonya Gerardo DIRECTOR OF QUALITY 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 Work Phone: [facility] 05-26-2023 18:47-0400 Heart rate 85 /min Tonya Gerardo DIRECTOR OF QUALITY 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 Work Phone: [facility] 05-26-2023 18:47-0400 Respiratory rate 21 /min Tonya Gerardo DIRECTOR OF QUALITY 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 Work Phone: [facility] 05-26-2023 18:47-0400 SaO2% (BldA) [Mass fraction] 97 % Tonya Gerardo DIRECTOR OF QUALITY 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 Work Phone: [facility] 05-26-2023 18:47-0400 Systolic blood pressure 104 mm[Hg] Tonya Gerardo DIRECTOR OF QUALITY 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 Work Phone: [facility] 05-21-2023 08:44-0400 Body weight 71.71 kg Remi Powell MD Work Phone: [facility] 05-21-2023 08:44-0400 Diastolic blood pressure 62 mm[Hg] Remi Powell MD Work Phone: [facility] 05-21-2023 08:44-0400 Systolic blood pressure 112 mm[Hg] Remi Powell MD Work Phone: [facility] 05-19-2023 14:54-0400 Body temperature 97.59 [degF] Jerri Kaiser DIRECTOR OF QUALITY 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 Work Phone: [facility] 05-19-2023 14:54-0400 Diastolic blood pressure 82 mm[Hg] Jerri Kaiser DIRECTOR OF QUALITY 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 Work Phone: [facility] 05-19-2023 14:54-0400 Heart rate 105 /min Jerri Kaiser DIRECTOR OF QUALITY 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 Work Phone: [facility] 05-19-2023 14:54-0400 SaO2% (BldA) [Mass fraction] 98 % Jerri Saab DIRECTOR OF QUALITY 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 Work Phone: [facility] 05-19-2023 14:54-0400 Systolic blood pressure 128 mm[Hg] Jerri Saab APRN.[employer] Work Phone: [facility] 04-20-2023 08:18-0400 Body weight 68.58 kg Orlando Burroughs MD Work Phone: [facility] 04-20-2023 08:18-0400 Diastolic blood pressure 60 mm[Hg] Orlando Burroughs MD Work Phone: [facility] 04-20-2023 08:18-0400 Systolic blood pressure 112 mm[Hg] Orlando Burroughs MD Work Phone: [facility] 01-29-2023 08:12-0400 Body weight 64.32 kg Remi Powell MD Work Phone: [facility] 01-29-2023 08:12-0400 Diastolic blood pressure 64 mm[Hg] Remi Powell MD Work Phone: [facility] 01-29-2023 08:12-0400 Systolic blood pressure 122 mm[Hg] Remi Powell MD Work Phone: [facility] 12-25-2022 09:36-0400 Body height 162.6 cm eRmi Powell MD Work Phone: [facility] 12-25-2022 09:36-0400 Body weight 66.22 kg Remi Powell MD Work Phone: [facility] 12-25-2022 09:36-0400 Diastolic blood pressure 62 mm[Hg] Remi Powell MD Work Phone: [facility] 12-25-2022 09:36-0400 Systolic blood pressure 106 mm[Hg] Remi Powell MD Work Phone: [facility] 11-30-2022 12:09-0500 Body temperature 97.9 [degF] Maegan Morrissey PA-C Work Phone: [facility] 11-30-2022 12:09-0500 Diastolic blood pressure 84 mm[Hg] Maegan Liuparkerli PA-C Work Phone: [facility] 11-30-2022 12:09-0500 Heart rate 101 /min Maegan Liuibli PA-C Work Phone: [facility] 11-30-2022 12:09-0500 SaO2% (BldA) [Mass fraction] 98 % Maegan Liuodalys PA-C Work Phone: [facility] 11-30-2022 12:09-0500 Systolic blood pressure 127 mm[Hg] Maegan Liuparkerli PA-C Work Phone: [facility] 10-02-2022 16:43-0500 Body temperature 98.01 [degF] [place] P[place] DIRECTOR OF QUALITY 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 Work Phone: [facility] 10-02-2022 16:43-0500 Body weight 66.86 kg Washington Pendlebury DIRECTOR OF QUALITY 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 Work Phone: [facility] 10-02-2022 16:43-0500 Diastolic blood pressure 82 mm[Hg] [place] Pendlebury DIRECTOR OF QUALITY 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 Work Phone: [facility] 10-02-2022 16:43-0500 Heart rate 92 /min Washington Pendlebury DIRECTOR OF QUALITY 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 Work Phone: [facility] 10-02-2022 16:43-0500 Respiratory rate 18 /min [place] Pendlebury DIRECTOR OF QUALITY 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 Work Phone: [facility] 10-02-2022 16:43-0500 SaO2% (BldA) [Mass fraction] 97 % [place] Pendlebury DIRECTOR OF QUALITY 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 Work Phone: [facility] 10-02-2022 16:43-0500 Systolic blood pressure 122 mm[Hg] [place] P[place] DIRECTOR OF QUALITY 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 Work Phone: [facility] 07-17-2022 16:19-0400 Diastolic blood pressure 80 mm[Hg] Hellen Paez MD Work Phone: [facility] 07-17-2022 16:19-0400 Heart rate 80 /min Hellen Paez MD Work Phone: [facility] 07-17-2022 16:19-0400 Systolic blood pressure 130 mm[Hg] Hellen Paez MD Work Phone: [facility] 07-16-2022 15:54-0400 Body height 165.1 cm Elysia Reaper DIRECTOR OF QUALITY 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 Work Phone: [facility] 07-16-2022 15:54-0400 Body weight 70.4 kg Elysia Reaper DIRECTOR OF QUALITY 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 Work Phone: [facility] 07-16-2022 15:54-0400 Diastolic blood pressure 80 mm[Hg] Elysia Reaper DIRECTOR OF QUALITY 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 Work Phone: [facility] 07-16-2022 15:54-0400 Systolic blood pressure 118 mm[Hg] Elysia Reaper DIRECTOR OF QUALITY 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 Work Phone: [facility] 04-10-2022 18:09-0400 Body height 162.6 cm Luana Ball DIRECTOR OF QUALITY 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 Work Phone: [facility] 04-10-2022 18:09-0400 Body mass index (BMI) [Percentile] Per age and sex 90.55 % Luana Ball DIRECTOR OF QUALITY 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 Work Phone: [facility] 04-10-2022 18:09-0400 Body weight 74.39 kg Luana Ball DIRECTOR OF QUALITY 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 Work Phone: [facility] 04-10-2022 18:09-0400 Diastolic blood pressure 88 mm[Hg] Luana Ball DIRECTOR OF QUALITY 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 Work Phone: [facility] 04-10-2022 18:09-0400 Heart rate 89 /min Luana Ball DIRECTOR OF QUALITY 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 Work Phone: [facility] 04-10-2022 18:09-0400 Respiratory rate 16 /min Luana Ball DIRECTOR OF QUALITY 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 Work Phone: [facility] 04-10-2022 18:09-0400 SaO2% (BldA) [Mass fraction] 99 % Luana Nevarez DIRECTOR OF QUALITY 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 Work Phone: [facility] 04-10-2022 18:09-0400 Systolic blood pressure 142 mm[Hg] Luana Nevarez DIRECTOR OF QUALITY 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 Work Phone: [facility] 03-31-2022 16:00-0400 Body height 162.5 cm Angela Ray MD Work Phone: [facility] 03-31-2022 16:00-0400 Body mass index (BMI) [Percentile] Per age and sex 92.5 % Angela Ray MD Work Phone: [facility] 03-31-2022 16:00-0400 Body weight 77.07 kg Angela Ray MD Work Phone: [facility] 03-31-2022 16:00-0400 Diastolic blood pressure 88 mm[Hg] Angela Ray MD Work Phone: [facility] 03-31-2022 16:00-0400 Heart rate 89 /min Angela Ray MD Work Phone: [facility] 03-31-2022 16:00-0400 Systolic blood pressure 140 mm[Hg] Angela Ray MD Work Phone: [facility] 03-04-2022 17:56-0400 Body mass index (BMI) [Percentile] Per age and sex 91.93 % Louann Garcia PA-C Work Phone: [facility] 03-04-2022 17:56-0400 Body temperature 98.4 [degF] Louann Collierald PA-C Work Phone: [facility] 03-04-2022 17:56-0400 Body weight 78.52 kg Louann Collierald PA-C Work Phone: [facility] 03-04-2022 17:56-0400 Diastolic blood pressure 75 mm[Hg] Louann Wormald PA-C Work Phone: [facility] 03-04-2022 17:56-0400 Heart rate 83 /min Louann Wormald PA-C Work Phone: [facility] 03-04-2022 17:56-0400 Respiratory rate 12 /min Louann Wormald PA-C Work Phone: [facility] 03-04-2022 17:56-0400 SaO2% (BldA) [Mass fraction] 100 % Louann Wormald PA-C Work Phone: [facility] 03-04-2022 17:56-0400 Systolic blood pressure 128 mm[Hg] Louann Wormald PA-C Work Phone: [facility] Encounters Encounter Date Encounter Type Care Provider Facility Start: 08-14-2025 ambulatory Efewongbe Oleghe Facili ty:[facility] Start: 08-13-2025 ambulatory Efewongbe Oleghe Facili ty:[facility] Start: 08-13-2025 End: 08-13-2025 ambulatory Efewongbe Oleghe Facility:[facility] Start: 08-13-2025 ambulatory Efewongbe Oleghe [facility]ili [facility] Start: 07-26-2025 ambulatory Efewongbe Oleghe Facili ty:[facility] Start: 07-20-2025 ambulatory Efewongbe Oleghe Facili [facility] Start: 07-20-2025 End: 07-20-2025 ambulatory Efewongbe Oleghe Facility:[facility] Start: 07-16-2025 End: 07-16-2025 ambulatory Efewongbe Oleghe [facility] Start: 07-16-2025 End: 07-16-2025 ambulatory Efewongbe Oleghe Facility:[facility] Start: 07-03-2025 End: 07-03-2025 ambulatory Efewongbe Oleghe [facility] Start: 06-29-2025 End: 06-29-2025 ambulatory Efewongbe Oleghe Facility:[facility] Start: 06-26-2025 End: 06-27-2025 ambulatory Efewongbe Oleghe Facility:[facility] Start: 06-26-2025 End: 06-26-2025 ambulatory Efewongbe Oleghe Facility:[facility] Start: 06-21-2025 End: 06-21-2025 ambulatory Efewongbe Oleghe Facility:[facility] Start: 06-19-2025 ambulatory Efewongbe Oleghe Facili ty:[facility] Start: 06-19-2025 ambulatory Efewongbe Oleghe Facili ty:[facility] Start: 06-18-2025 End: 06-18-2025 ambulatory Efewongbe Oleghe [facility] Start: 06-13-2025 End: 06-13-2025 ambulatory Efewongbe Oleghe [facility] Start: 06-11-2025 End: 06-11-2025 ambulatory Efewongbe Oleghe [facility] Start: 06-08-2025 End: 06-08-2025 ambulatory Efewongbe Oleghe Facility:[facility] Start: 05-21-2025 End: 05-21-2025 ambulatory Efewongbe Oleghe [facility] Start: 05-18-2025 ambulatory Efewongbe Oleghe Facili ty:[facility] Start: 05-18-2025 End: 05-18-2025 ambulatory Efewongbe Oleghe Facility:[facility] Start: 05-11-2025 End: 05-11-2025 ambulatory Efewongbe Oleghe [facility] Start: 05-10-2025 End: 05-10-2025 ambulatory Efewongbe Oleghe Facility:[facility] Start: 05-08-2025 End: 05-09-2025 ambulatory Efewongbe Oleghe Facility:[facility] Start: 05-07-2025 End: 05-07-2025 ambulatory Efewongbe Oleghe Facility:[facility] Start: 05-02-2025 End: 05-02-2025 ambulatory Efewongbe Oleghe Facility:[facility] Start: 04-30-2025 End: 04-30-2025 ambulatory Efewongbe Oleghe Facility:[facility] Start: 04-27-2025 End: 04-27-2025 ambulatory Efewongbe Darye Facility:[facility] Start: 04-25-2025 End: 04-25-2025 ambulatory Efewongbe Darye Facility:[facility] Start: 04-23-2025 End: 04-23-2025 ambulatory Efewongbe Darye [facility] Start: 04-12-2025 End: 04-12-2025 ambulatory Shanitabe Darye Facility:[facility] Start: 04-03-2025 End: 04-03-2025 ambulatory Efganeshongbe Darye Facility:[facility] Start: 03-26-2025 End: 03-26-2025 ambulatory Janyongchato Lawcarl Facility:[facility] Start: 03-23-2025 End: 03-23-2025 ambulatory Rosie Stinson Facility:[facility] Start: 02-21-2025 End: 02-21-2025 ambulatory Jesus LLANES Facility:[facility] Start: 02-20-2025 End: 02-20-2025 ambulatory Jesus LLANES Facility:[facility] Start: 02-12-2025 End: 02-12-2025 ambulatory Govindvan Anna Facility:[facility] Start: 02-06-2025 End: 02-06-2025 ambulatory Rosie Stinson [facility] Start: 02-06-2025 End: 02-06-2025 ambulatory Rosie Stinson Facility:[facility] Start: 02-02-2025 End: 02-02-2025 ambulatory Sharmin Hernandez Facility:[facility] Start: 01-22-2025 ambulatory Vani Cm [facility] Start: 01-04-2025 End: 01-04-2025 ambulatory Sharmin Hernandez [facility] Start: 01-04-2025 End: 01-04-2025 ambulatory Sharmin Hernandez Facility:[facility] Start: 12-18-2024 ambulatory Vani Cm [facility] Start: 12-12-2024 End: 12-12-2024 ambulatory [facility] Start: 11-27-2024 End: 11-27-2024 ambulatory Vani Cm Facility:[facility] Start: 11-13-2024 ambulatory Vani Cm [facility] Start: 10-30-2024 End: 10-30-2024 ambulatory Vani Cm Facility:[facility] Start: 10-25-2024 End: 10-25-2024 ambulatory Sharmin Hernandez Facility:[facility] Start: 10-23-2024 ambulatory Vani Cm [facility] Start: 10-09-2024 End: 10-09-2024 ambulatory Vani Cm [facility] Start: 09-15-2024 Encounter for gynecological examination (general) (routine) without abnormal findings Rosie Milad [facility] Start: 09-15-2024 End: 09-15-2024 ambulatory No Primary Care Physician Facility:[facility] Start: 09-15-2024 End: 09-15-2024 ambulatory Rosie Stinson Facility:[facility] Start: 09-11-2024 End: 09-11-2024 ambulatory Vani Cm [facility] Start: 08-28-2024 End: 08-28-2024 ambulatory No Primary Care Physician Facility:[facility] Start: 07-12-2024 End: 07-12-2024 Orders Only Bharathi Estrada MD Work Phone: OB/Gynecology Comment on above: Ovarian cyst, right (Primary Dx) Start: 07-11-2024 End: 07-11-2024 ambulatory HELLEN PAEZ OB/Gynecology Start: 07-11-2024 End: 07-11-2024 Patient encounter procedure Linda Márquez APRN.[employer] Work Phone: OB/Gynecology Comment on above: Surveillance of prev iously prescribed intrauterine contraceptive device (Primary Dx) Start: 01-24-2024 End: 01-24-2024 Patient encounter procedure Bharathi Estrada MD Work Phone: OB/Gynecology Comment on above: Pelvic pain in femal e (Primary Dx); IUD check up; Abnormal uterine bleeding (AUB) Start: 11-23-2023 End: 11-23-2023 Patient encounter procedure Jeannine Merrill APRN.[employer]ER Work Phone: [facility] Comment on [...] 08-04-2023 End: 08-04-2023 Patient encounter procedure Nurse Public Health Administrator [facility] Snow Work Phone: Obstetrics/Gynecology Comment on above: BP check (Primary Dx ) Start: 08-04-2023 End: 08-04-2023 Patient encounter status Nurse Snow Work Phone: [facility] Start: 08-04-2023 ambulatory Elysia woodruff MD Work Phone: Obstetrics/Gynecology Comment on above: Blood pressure Start: 07-29-2023 Telephone encounter Delaney Snowden DIRECTOR OF QUALITY IMPROVEMENT.CNM Work Phone: [facility] Obstetrics & Gynecology Comment on above: Appointment (Needs o ne week bp check for GHTN) Start: 07-27-2023 End: 07-30-2023 Evaluation and management of inpatient [facility] Facility:[facility] Start: 07-26-2023 End: 07-26-2023 ambulatory [facility] Start: 07-26-2023 Telephone encounter Darren Rodríguez MD Work Phone: Obstetrics/Gynecology Start: 07-23-2023 End: 07-23-2023 Patient encounter procedure Remi Powell MD Work Phone: Obstetrics/Gynecology Comment on above: Encounter for superv ision of normal in third trimester, unspecified (Primary Dx) Start: 07-23-2023 End: 07-24-2023 ambulatory Georgiana Kasper MA [facility] [place] Comment on above: Population Health Na vigation [...] End: 05-26-2023 Patient encounter procedure Tonya Gerardo APRN.[employer]ER Work Phone: [facility] Comment on above: Pharyngitis, unspeci fied etiology (Primary Dx) Start: 05-21-2023 End: 05-21-2023 Patient encounter procedure Remi Powell MD Work Phone: Obstetrics/Gynecology Comment on above: Encounter for superv ision of normal first in third trimester (Primary Dx) Start: 05-19-2023 End: 05-19-2023 Patient encounter procedure Jerri Saab APRN.[employer]STER F[employer]ER Work Phone: [facility] Comment on above: Sore throat (Primary Dx); Suspected COVID-19 virus infection Start: 04-20-2023 End: 04-20-2023 Patient encounter procedure Orlando Burroughs MD Work Phone: Obstetrics/Gynecology Comment on above: Encounter for superv ision of normal first in second trimester (Primary Dx); 24 weeks gestation of Start: 03-19-2023 End: 03-19-2023 Patient encounter procedure Public Health Administrator [facility] Work Phone: Maternal Medicine Comment on above: Encounter for anatomic survey (Primary Dx); Encounter for screening of mother Start: 02-09-2023 ambulatory Omar Calabrese Work Phone: [facility] [place] Comment on above: Positive testing Start: 02-09-2023 E-mail encounter libra dale caregiver Omar Prachi DSOUZA Work Phone: [facility] Start: 02-01-2023 Telephone encounter Brie vaz MD Work Phone: Maternal Medicine Comment on above: Results (NIPT ) Start: 01-29-2023 End: 01-29-2023 Patient encounter procedure Remi Powell MD Work Phone: Obstetrics/Gynecology Comment on above: Encounter for superv ision of normal first in first trimester (Primary Dx); IUD migration, initial encounter Start: 01-25-2023 End: 01-26-2023 ambulatory Brie EVANS Facility:[facility] Start: 01-05-2023 ambulatory Brett colon PA-C Work Phone: [facility] Comment on above: Vaginal culture resu lts/treatment - January 05, 2023 Urine culture - Apr2022 Start: 01-05-2023 E-mail encounter libra dale caregiver Brett Mejía PA-C Work Phone: [facility] Start: 12-25-2022 End: 12-25-2022 Patient encounter [...] Possible Start: 11-10-2022 Telephone encounter Wesley carlson [facility] Work Phone: Psychiatry Comment on above: Patient Update Start: 11-03-2022 End: 11-03-2022 Patient encounter procedure Rajni Smithdsky EMIGDIO Work Phone: Psychology Comment on above: Bipolar II disorder (HCC) (Primary Dx); Post traumatic stress disorder (PTSD); Eating disorder, unspecified type Start: 10-03-2022 Telephone encounter Patriciabambi Lloydfaraz SOTO.[employer]STER FARMER Work Phone: [facility] Comment on above: Results Start: 10-02-2022 End: 10-02-2022 Office outpatient visit 25 minutes Washington Goss APRN.[employer]STER FARMER Work Phone: [facility] Comment on above: Urinary frequency (P rimary Dx); Vaginal discharge Start: 07-22-2022 End: 07-22-2022 Patient encounter procedure Wilver Montemayor DC Work Phone: Integrative Medicine Comment on above: Chronic bilateral th oracic back pain (Primary Dx) Start: 07-17-2022 End: 07-18-2022 Office outpatient visit 25 minutes Hellen Paez MD Work Phone: [facility] [place] Comment on above: Primary insomnia (Pr imary Dx); Cyclothymia; Recurrent syncope; Chronic maxillary sinusitis; Encounter for immunization Start: 07-16-2022 End: 07-16-2022 Patient encounter procedure Elysia Campbell APRN.[employer] F[employer]ER Work Phone: Gynecology Comment on above: Urinary [...] [facility] Start: 04-21-2022 E-mail encounter libra m caregiver Renea BEAL Work Phone: [facility] Start: 04-14-2022 End: 04-14-2022 Patient encounter procedure Carmen Ramirez MD Work Phone: Otolaryngology Comment on above: Allergic rhinitis, u nspecified seasonality, unspecified trigger (Primary Dx); Dysfunction of both eustachian tubes Start: 04-13-2022 ambulatory Roxie Thorne RN INDP [employer]INGER [employer]ACEYEK Start: 04-13-2022 Follow-up encounter Roxie Thorne RN Embedded Engineer Management Comment on above: Transition Of Care ( [facility] - Hospital D/C Follow up - Initial Outreach) Start: 04-10-2022 End: 04-10-2022 Patient encounter procedure Luana Nevarez APRN.CNP Work Phone: [facility] Comment on above: Procedure not dax d out (Primary Dx) Start: 04-08-2022 End: 04-08-2022 Emergency department patient visit Maxine Dewitt APRN.CNP Work Phone: Gynecology Comment on above: Emergency contracept ion (Primary Dx); Encounter for initial prescription of contraceptive pills; Decreased appetite; History of recent stressful life event Start: 04-08-2022 End: 04-08-2022 Telemedicine consultation with patient Maxine Dewitt DAMON Work Phone: [facility] Start: 03-31-2022 End: 04-01-2022 Initial preventive medicine new pt age 18-39yrs Angela Ray MD Work Phone: [facility] [place] Comment on above: Wellness examination (Primary Dx); Chronic maxillary sinusitis; Maxillary micrognathia; Velopharyngeal insufficiency, congenital; Cleft palate, unspecified; Chronic midline 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 sciatica; Vasovagal syncope Start: 03-31-2022 End: 04-01-2022 Patient encounter status Angela Ray MD Work Phone: [facility] [place] Start: 03-04-2022 End: 03-04-2022 Patient encounter procedure Louann Garcia PA-C Work Phone: [facility] Comment on above: Leukocytes in urine (Primary Dx); Dysuria; Urinary frequency Start: 03-04-2022 ambulatory Romario Pedrozaangle briones PA-C Work Phone: Telemedicine Comment on above: Treatment not availa ble (Primary Dx) Uti & refill Start: 02-03-2022 Phys/qhp online evaluation & management service Maegan Stinson DIRECTOR OF QUALITY 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 Work Phone: Telemedicine Comment on above: Treatment not availa ble (Primary Dx) Procedures Date Procedure Procedure Detail Performing Clinician Start: 07-11-2024 Us pelvic nonobstetr ic real-time image complete Bharathi Estrada MD Work Phone: Start: 11-23-2023 Urnls dip stick/tabl et rgnt auto w/o microscopy Jeannine Merrill DIRECTOR OF QUALITY 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 Work Phone: Start: 07-27-2023 Antibody screen HELLEN PAEZ Comment on above: Order Comment: Speci men Type: BLOOD SPECIMENOrdering Facility: [facility] Address: [address] [place] [address] Performed By: #### T SPN ####[facility] BLOOD BANKIA [id number] [place] [address] [place] Start: 07-23-2023 URINE [...] 05-19-2023 STREP A MOLECULAR (POC) Jerri Saab APRN.[employer]ER Work Phone: Start: 05-19-2023 COVID & INFLUENZA A/ B & RSV NAAT, ROUTINE Jerri Saab APRN.[employer]STER FARMER Work Phone: Start: 05-19-2023 Iadna respiratry pro be & rev trnscr 3-5 targets Jerri Saab APRN.[employer]STER F[employer]ER Work Phone: Start: 05-19-2023 Sars-cov-2 detection by dna/rna Jerri Saab APRN.[employer]STER F[employer]ER Work Phone: Start: 04-20-2023 URINE OB DIP [...] Work Phone: Start: 10-02-2022 BACTERIAL VAGINOSIS AMPLIFICATION [facility] DIRECTOR OF QUALITY 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 Work Phone: Start: 10-02-2022 End: 10-02-2022 Iadna chlamydia trachomatis amplified probe tq [facility] DIRECTOR OF QUALITY 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 Work Phone: Start: 10-02-2022 Culture bacterial quanttative colony count urine [facility] DIRECTOR OF QUALITY 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 Work Phone: Start: 10-02-2022 End: 10-02-2022 Urnls dip stick/tablet rgnt auto w/o microscopy Sylwia Ortiz DIRECTOR OF QUALITY 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 Work Phone: Start: 07-17-2022 INFLUENZA VACCINE QUADRIVALENT 6 MO - 64 YRS IM Hellen Paez MD Work Phone: Start: 07-16-2022 End: 07-16-2022 Urnls dip stick/tablet rgnt auto w/o microscopy Elysia Campbell DIRECTOR OF QUALITY 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 Work Phone: Start: 07-03-2022 Radex spine thoracic 3 views Wilver Montemayor DC Work Phone: Start: 03-31-2022 Adult depression scr eening assessment Angela Ray MD Work Phone: Start: 03-04-2022 Urnls dip stick/tabl et rgnt auto w/o microscopy [facility] Provider Plan of Treatment Date Care Activity Detail Author Start: 05-21-2033 Urine microalbumin profile [facility] Start: 09-14-2026 Screening for malign ant neoplasm of cervix [facility] Start: 05-15-2025 Urine microalbumin profile DTAP,TDAP,TD (7 - Td or Tdap) [facility] Start: 10-13-2024 End: 10-13-2024 Patient encounter procedure 10/13/2024 11:00 AM EST Office Visit Obstetrics/Gynecology [address] [address] Elysia Collier MD [address] [place] [address] ANNUAL EXAM Obstetrics/Gynecolog y Comment on above: ANNUAL EXAM Start: 10-02-2024 End: 10-02-2024 Patient encounter procedure Obstetrics/Gynecolog y Comment on above: ANNUAL EXAM Start: 07-12-2024 End: 07-12-2025 US Pelvis PELVIC US [facility] Anc Imaging Routine Ovarian cyst, right Expected: 07/12/2024, Expires: 07/12/2025 [facility] Work Phone: Comment on above: Expected: 07/12/2024 , Expires: 07/12/2025 Start: 06-04-2024 Covid-19 Vaccine ( season) Covid-19 Vaccine ( season) [facility] Start: 06-04-2024 Influenza vaccination Influenza Vacc ine (#1) [facility] Start: 02-24-2024 End: 02-24-2024 Patient encounter procedure 02/24/2024 3:40 PM EDT Office Visit OB/Gynecology [address] [place] [address] Minoo Arzate MD [address] [place] [address] Pelvic US/IUD follow up OB/Gynecology Comment on above: Pelvic US/IUD follow up Start: 02-24-2024 End: 02-24-2024 Manual pelvic examination 02/24/2024 3:00 PM EDT Procedure OB/Gynecology [address] [place] [address] Pelvic pain in female [R10.2] OB/Gynecology Comment on above: Pelvic pain in femal e [R10.2] Start: 01-24-2024 End: 01-23-2025 US Pelvis PELVIC US [facility] Anc Imaging Routine Pelvic pain in female Expected: 01/24/2024, Expires: 01/23/2025 [facility] Work Phone: Comment on above: Expected: 01/24/2024 , Expires: 01/23/2025 Start: 12-26-2023 CHLAMYDIA SCREENING (18-24) CHLAMYDIA SCREENING (18-24) [facility] Start: 12-26-2023 GC (GONORRHEA) SCREE TACOS (18-24) GC (GONORRHEA) SCREENING (18-24) [facility] Start: 12-26-2023 Screening for Chlamy rickey trachomatis Chlamydia Screening () [facility] Start: 10-04-2023 Behavioral Health Screening Behavioral Health Screening [facility] Start: 10-04-2023 Depression Assessment Depression Ass essment [facility] Start: 10-02-2023 CHLAMYDIA SCREENING (18-24) CHLAMYDIA SCREENING (18-24) [facility] Start: 10-02-2023 GC (GONORRHEA) SCREE TACOS (18-24) GC (GONORRHEA) SCREENING (18-24) [facility] Start: 07-23-2023 End: 10-22-2023 Protein/Creatinine [Mass Ratio] in Urine [facility] Work Phone: Comment on above: Expected: 07/23/2023 , Expires: 10/22/2023 Start: 07-17-2023 COVID-19 VACCINE (3 - Booster for Pfizer series) COVID-19 VACCINE (3 - Booster for Pfizer series) [facility] Comment on above: Postponed from 10/17 (Declined at this time) Start: 07-17-2023 COVID-19 VACCINE (3 - Pfizer series) COVID-19 VACCINE (3 - Pfizer series) [facility] Comment on above: Postponed from 10/17 (Declined at this time) Start: 07-17-2023 [facility] Comment on above: Postponed from 12/06 (Declined at this time) Start: 07-17-2023 HIV SCREENING HIV SCREENING [facility] Comment on above: Postponed from 12/06 (Declined at this time) Start: 07-17-2023 Meningococcal B Vacc ine: Consider Based On Risk (1 of 2 - Patient Seeks Protection) Meningococcal B Vaccine: Consider Based On Risk (1 of 2 - Patient Seeks Protection) [facility] Comment on above: Postponed from 12/06 (Declined at this time) Start: 07-17-2023 MENINGOCOCCAL B: Consider based on risk (1 of 2 - Patient Seeks Protection) MENINGOCOCCAL B: Consider based on risk (1 of 2 - Patient Seeks Protection) [facility] Comment on above: Postponed from 12/06 (Declined at this time) Start: 07-17-2023 MENINGOCOCCAL B: Consider based on risk (1 of 2 - Risk Bexsero 2-dose series) MENINGOCOCCAL B: Consider based on risk (1 of 2 - Risk Bexsero 2-dose series) [facility] Comment on above: Postponed from 12/06 (Declined at this time) Start: 07-16-2023 CHLAMYDIA SCREENING () CHLAMYDIA SCREENING () [facility] Start: 07-16-2023 GC (GONORRHEA) SCREE TACOS (24) GC (GONORRHEA) SCREENING () [facility] Start: 06-04-2023 Covid-19 Vaccine ( season) Covid-19 Vaccine ( season) [facility] Start: 06-04-2023 Influenza vaccination INFLUENZA (#1) [facility] Start: 05-21-2023 End: 07-21-2023 CBC W Auto Differential panel - Blood CBC + DIFF Lab Routine Encounter for supervision of normal first in third trimester Expected: 05/21/2023, Expires: 07/21/2023 [facility] Work Phone: Comment on above: Expected: 05/21/2023 , Expires: 07/21/2023 Start: 04-20-2023 End: 06-20-2023 GEST GLUC SCREEN, 1-HR, 50 GM, NON-FASTING [facility] Work Phone: Comment on above: Expected: 04/20/2023 , Expires: 06/20/2023 Start: 03-31-2023 Adult depression screening assessment DEPRESSION SCREENING [facility] Start: 12-25-2022 End: 12-26-2023 NUCHAL TRANSLUCENCY [facility] NUCHAL TRANSLUCENCY [facility] Anc Imaging Routine Encounter for supervision of normal first in first trimester Expected: 12/25/2022, Expires: 12/26/2023 [facility] Work Phone: Comment on above: Expected: 12/25/2022 , Expires: 12/26/2023 Start: 10-04-2022 DEPRESSION ASSESSMENT DEPRESSION ASS ESSMENT [facility] Start: 06-04-2022 Influenza vaccination INFLUENZA (#1) [facility] Start: 01-20-2022 COVID-19 VACCINE (3 - Booster for Pfizer series) COVID-19 VACCINE (3 - Booster for Pfizer series) [facility] Start: 10-17-2021 COVID-19 VACCINE (3 - Booster for Pfizer series) COVID-19 VACCINE (3 - Booster for Pfizer series) [facility] Start: 10-04-2021 DEPRESSION ASSESSMENT DEPRESSION ASS ESSMENT [facility] Start: 2020 Anxiety Screening Anxiety Screening [facility] Start: 2020 CHLAMYDIA SCREENING (18-24) CHLAMYDIA SCREENING (18-24) [facility] Start: 2020 Depression Screening Depression Scre ening [facility] Start: 2020 GC (GONORRHEA) SCREE TACOS (18-24) GC (GONORRHEA) SCREENING (18-24) [facility] Start: 2020 HEPATITIS C SCREENING HEPATITIS C SC REENING [facility] Start: 2020 HIV SCREENING HIV SCREENING [facility] Start: 2018 Meningococcal B Vacc ine: Consider Based On Risk (1 of 2 - Patient Seeks Protection) Meningococcal B Vaccine: Consider Based On Risk (1 of 2 - Patient Seeks Protection) [facility] Start: 2016 PEDS TO ADULT TRANSI TION ANNUAL ASSESSMENT PEDS TO ADULT TRANSITION ANNUAL ASSESSMENT [facility] Start: 2014 Adult depression screening assessment DEPRESSION SCREENING [facility] Start: 2014 PEDS TO ADULT TRANSI TION INITIAL DISCUSSION PEDS TO ADULT TRANSITION INITIAL DISCUSSION [facility] Start: 2012 MENINGOCOCCAL B: Consider based on risk (1 of 2 - Risk Bexsero 2-dose series) MENINGOCOCCAL B: Consider based on risk (1 of 2 - Risk Bexsero 2-dose series) [facility] Bacteria identified in Urine by Culture URINE CULTURE Microbiology Routine Dysuria Ordered: 03/04/2022 [facility] Work Phone: Comment on above: Ordered: 03/04/2022 Bacteria identified in Urine by Culture URINE CULTURE Microbiology Routine UTI symptoms 11/23/2023 12:33 PM EST [facility] Work Phone: BACTERIAL VAGINOSIS AMPLIFICATION BACTERIAL VAGINOSIS AMPLIFICATION Lab Routine Vaginal discharge Vaginal odor 07/16/2022 4:38 PM EDT [facility] Work Phone: JOHN / TRICHOMONA S AMPLIFICATION JOHN / TRICHOMONAS AMPLIFICATION Microbiology Routine Vaginal discharge Vaginal odor 07/16/2022 4:38 PM EDT [facility] Work Phone: Chlamydia trachomatis+Neisseria gonorrhoeae DNA [Presence] in Unspecified specimen by TESS with probe detection GC/CHLAMYDIA DNA DET Lab Routine Vaginal discharge Vaginal odor 07/16/2022 4:38 PM EDT [facility] Work Phone: INDUCTION L&D INDUCTION L&D Procedures Routine Encounter for supervision of normal in third trimester, unspecified 1 Occurrences starting 07/23/2023 [facility] Work Phone: Comment on above: 1 Occurrences starti ng 07/23/2023 End: 06-17-2024 OXIMETRY AT REST OXIMETRY AT REST PFT Routine Sore throat 1 Occurrences starting 05/19/2023 until 06/17/2024 [facility] Work Phone: Comment on above: 1 Occurrences starti ng 05/19/2023 until 06/17/2024 PAP TEST PAP TEST Lab Ab hurley care and examination Cervical cancer screening Ordered: 09/14/2023 [facility] Work Phone: Comment on above: Ordered: 09/14/2023 POC ATTIC BLOWER ULTRASOUND POC ATTIC BLOWER ULTRASO UND Anc Imaging Routine Encounter for supervision of normal first in first trimester Ordered: 12/25/2022 [facility] Work Phone: Comment on above: Ordered: 12/25/2022 End: 07-31-2023 Radex spine thoracic 3 views XR THORACIC GENERAL 3V AP/LAT/SWIMMERS Radiology Routine Chronic bilateral thoracic back pain 1 Occurrences starting 07/01/2022 until 07/31/2023 [facility] Work Phone: Comment on above: 1 Occurrences starti ng 07/01/2022 until 07/31/2023 ROUTINE, GR OUP B STREP PCR ROUTINE, GROUP B STREP PCR Microbiology Routine Encounter for supervision of normal in third trimester, unspecified 07/16/2023 4:14 PM EDT [facility] Work Phone: UA DIP B/O UA DIP B/O Lab R outine Dysuria Ordered: 03/04/2022 [facility] Work Phone: Comment on above: Ordered: 03/04/2022 [facility] Immunizations Immunization Date Immunization Notes Care Provider [facility] 06-25-2023 influenza, injectabl e, quadrivalent, contains preservative Elysia Collier MD Work Phone: [facility] 06-25-2023 influenza virus vacc ine, unspecified formulation Linda Márquez APRN.CNP Work Phone: [facility] 05-21-2023 tetanus toxoid, redu garett diphtheria toxoid, and acellular pertussis vaccine, adsorbed Remi Powell MD Work Phone: [facility] 07-17-2022 influenza, injectabl e, quadrivalent, contains preservative Hellen Paez MD Work Phone: [facility] 08-22-2021 COVID-19 vaccine, ag e 12+ yr ([employer] - PURPLE TOP) Maegan Stinson APRN.[facility] Work Phone: [facility] 07-03-2021 influenza, injectabl e, quadrivalent, contains preservative Maegan Stinson APRN.[employer] Work Phone: [facility] Work Phone: 06-18-2020 meningococcal polysaccharide (groups A, C, Y and W-135) diphtheria toxoid conjugate vaccine (MCV4P) Maegan Stinson APRN.[employer] Work Phone: [facility] Work Phone: 06-16-2018 Human Papillomavirus 9-valent vaccine Maegan Stinson APRN.[employer] Work Phone: [facility] Work Phone: 06-14-2017 Human Papillomavirus 9-valent vaccine Maegan Stinson APRN.[employer] Work Phone: [facility] Work Phone: 05-15-2015 meningococcal oligosaccharide (groups A, C, Y and W-135) diphtheria toxoid conjugate vaccine (MCV4O) Maegan Stinson APRN.[employer] Work Phone: [facility] Work Phone: 05-15-2015 tetanus toxoid, redu garett diphtheria toxoid, and acellular pertussis vaccine, adsorbed Maegan Stinson APRN.[employer] Work Phone: [facility] Work Phone: 06-26-2014 influenza virus vacc ine, live, attenuated, for intranasal use Maegan Stinson APRN.[employer] Work Phone: [facility] Work Phone: 03-21-2012 hepatitis A vaccine, pediatric/adolescent dosage, 2 dose schedule Maegan Stinson APRN.[employer] Work Phone: [facility] Work Phone: 07-28-2011 influenza virus vacc ine, live, attenuated, for intranasal use Maegan Stinson APRN.[employer] Work Phone: [facility] Work Phone: 03-04-2011 hepatitis A vaccine, pediatric/adolescent dosage, 2 dose schedule Maegan Stinson APRN.[employer] Work Phone: [facility] Work Phone: 07-15-2010 influenza virus vacc ine, live, attenuated, for intranasal use Maegan Stinson APRN.[employer] Work Phone: [facility] Work Phone: 08-18-2008 influenza virus vacc ine, live, attenuated, for intranasal use Maegan Stinson APRN.[employer] Work Phone: [facility] Work Phone: 04-08-2007 diphtheria, tetanus toxoids and acellular pertussis vaccine, unspecified formulation Maegan Stinson APRN.[employer] Work Phone: [facility] Work Phone: 04-08-2007 measles, mumps and rubella virus vaccine Maegan Stinson APRN.[employer] Work Phone: [facility] Work Phone: 04-08-2007 poliovirus vaccine, unspecified formulation Maegan Stinson APRN.[employer] Work Phone: [facility] Work Phone: 04-08-2007 varicella virus vaccine Shannan Stinson APRN.[employer] Work Phone: [facility] Work Phone: 06-19-2004 poliovirus vaccine, unspecified formulation Maegan Stinson APRN.[employer] Work Phone: [facility] Work Phone: 04-03-2004 diphtheria, tetanus toxoids and acellular pertussis vaccine, unspecified formulation Maegan Stinson APRN.[employer] Work Phone: [facility] Work Phone: 04-03-2004 haemophilus influenz ae type b vaccine, conjugate unspecified formulation Maegan Stinson APRN.[employer] Work Phone: [facility] Work Phone: 01-25-2004 measles, mumps and rubella virus vaccine Maegan Stinson APRN.[employer] Work Phone: [facility] Work Phone: 01-25-2004 varicella virus vaccine Shannan Stinson APRN.[employer] Work Phone: [facility] Work Phone: 10-18-2003 hepatitis B vaccine, pediatric or pediatric/adolescent dosage Maegan Stinson APRN.[facility] Work Phone: [facility] Work Phone: 06-21-2003 diphtheria, tetanus toxoids and acellular pertussis vaccine, unspecified formulation Maegan Stinson APRN.[employer] Work Phone: [facility] Work Phone: 06-21-2003 haemophilus influenz ae type b vaccine, conjugate unspecified formulation Maegan Stinson APRN.[facility] Work Phone: [facility] Work Phone: 06-21-2003 pneumococcal conjuga te vaccine, 7 valent Maegan Stinson APRN.[facility] Work Phone: [facility] Work Phone: 04-09-2003 diphtheria, tetanus toxoids and acellular pertussis vaccine, unspecified formulation Maegan Stinson APRN.[employer] Work Phone: [facility] Work Phone: 04-09-2003 haemophilus influenz ae type b vaccine, conjugate unspecified formulation Maegan Stinson APRN.[employer] Work Phone: [facility] Work Phone: 04-09-2003 pneumococcal conjuga te vaccine, 7 valent Maegan Stinson APRN.[employer] Work Phone: [facility] Work Phone: 04-09-2003 poliovirus vaccine, inactivated Maegan Stinson DIRECTOR OF QUALITY IMPROVEMENT.[facility] Work Phone: [facility] Work Phone: 02-01-2003 diphtheria, tetanus toxoids and acellular pertussis vaccine, unspecified formulation Maegan Stinson DIRECTOR OF QUALITY 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 Work Phone: [facility] Work Phone: 02-01-2003 haemophilus influenz ae type b conjugate and Hepatitis B vaccine Maegan Stinson DIRECTOR OF QUALITY 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 Work Phone: [facility] Work Phone: 02-01-2003 pneumococcal conjuga te vaccine, 7 valent Maegan Stinson DIRECTOR OF QUALITY 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 Work Phone: [facility] Work Phone: 02-01-2003 poliovirus vaccine, inactivated Maegan Stinson APRN.[facility] Work Phone: [facility] Work Phone: 2002 hepatitis B vaccine, pediatric or pediatric/adolescent dosage Maegan Stinson APRN.[facility] Work Phone: [facility] Work Phone: Payers Date Payer Category Payer Unknown [id number] 2024 Self-pay 2022 Unknown [id number] 2022 Medicaid [id number] 2021 Private Health Insurance P AET [facility] STAFF/NON STAFF / EHP [facility] [id number] 2021-Present [address] [place] [address] EPO [id number] 2021 Private Health Insurance [id number] 2021 Medicaid [facility] [employer] [id number] 2021-Present [phone] [address] [place] [address] Medicaid [id number] 2021 Medicaid [id number]. [id number]. [id number] 2002 Unknown [id number] 2.16.840.1.325109.3.579.2. 479 Unknown [id number] Unknown [id number] 2.16.840.1.277183.3.579.2. 462 Unknown [id number] 2.16.840.1.477809.3.579.2. 462 Unknown [id number] 2.16.840.1.041473.3.579.2. 462 Unknown [id number] 2.16.840.1.620453.3.579.2. 462 Unknown [id number] 2.16.840.1.641597.3.579.2. 462 Unknown [id number] 2.16.840.1.315055.3.579.2. 462 Unknown [id number] 2.16.840.1.871628.3.579.2. 462 Unknown [id number] 2.16.840.1.259232.3.579.2. 462 Unknown [id number] 2.16.840.1.549542.3.579.2. 462 Unknown [id number] 2.16.840.1.015636.3.579.2. 462 Unknown [id number] 2.16.840.1.589693.3.579.2. 462 Unknown [id number] 2.16.840.1.193701.3.579.2. 462 Unknown [id number] 2.16.840.1.532597.3.579.2. 462 Unknown [id number] 2.16.840.1.893220.3.579.2. 462 Unknown [id number] 2.16.840.1.386053.3.579.2. 462 Unknown [id number] 2.16.840.1.280386.3.579.2. 462 Unknown [id number] 2.16.840.1.997548.3.579.2. 462 Unknown [id number] 2.840.1.275616.3.579.2. 462 Unknown [id number] 2.840.1.088117.3.579.2. 462 Unknown [id number] 2.840.1.042890.3.579.2. 462 Unknown [id number] 2.840.1.392878.3.579.2. 462 Unknown [id number] 2.840.1.319651.3.579.2. 462 Unknown [id number] 2.840.1.058502.3.579.2. 462 Unknown [id number] 2.840.1.833902.3.579.2. 462 Unknown [id number] 2.840.1.228912.3.579.2. 462 Unknown [id number] 2.840.1.634958.3.579.2. 462 Unknown [id number] 2.840.1.923271.3.579.2. 462 Unknown [id number] 2.840.1.819995.3.579.2. 462 Unknown [id number] 2.840.1.245740.3.579.2. 462 Unknown [id number] 2.840.1.321134.3.579.2. 462 Unknown [id number] 2.16.840.1.131599.3.579.2. 462 Unknown [id number] 2.840.1.398367.3.579.2. 462 Unknown [id number] 2.16.840.1.896393.3.579.2. 462 Unknown [id number] 2.16.840.1.425680.3.579.2. 462 Unknown [id number] 2.16.840.1.010187.3.579.2. 462 Unknown [id number] 2.16.840.1.396356.3.579.2. 462 Unknown [id number] 2.16.840.1.557630.3.579.2. 462 Unknown [id number] 2.840.1.761511.3.579.2. 462 Unknown [id number] 2.840.1.115715.3.579.2. 462 Unknown [id number] 2.840.1.631271.3.579.2. 462 Unknown [id number] 2.840.1.746205.3.579.2. 462 Unknown [id number] 2.840.1.169709.3.579.2. 462 Unknown [id number] 2.840.1.480900.3.579.2. 462 Unknown [id number] 2.840.1.087840.3.579.2. 462 Unknown [id number] 2.840.1.816372.3.579.2. 462 Unknown [id number] 2.840.1.360212.3.579.2. 462 Unknown [id number] 2.840.1.121546.3.579.2. 462 Unknown [id number] 2.16840.1.197493.3.579.2. 462 Unknown [id number] 2.16840.1.442446.3.579.2. 462 Unknown [id number] 2.16840.1.576807.3.579.2. 462 Unknown [id number] 2.16.840.1.994508.3.579.2. 462 Unknown [id number] 2.16.840.1.938651.3.579.2. 462 Unknown [id number] 2.16.840.1.285231.3.579.2. 462 Unknown [id number] 2.16.840.1.064951.3.579.2. 462 Unknown [id number] 2.16.840.1.015613.3.579.2. 462 Unknown [id number] 2.16.840.1.750360.3.579.2. 462 Unknown [id number] 2.16.840.1.336608.3.579.2. 462 Unknown [id number] 2.16.840.1.177299.3.579.2. 462 Unknown [id number] 2.16.840.1.931529.3.579.2. 462 Unknown [id number] 2.16.840.1.712077.3.579.2. 462 Social History Date Type Detail Facility Start: 12-30-2021 End: 05-21-2023 Tobacco smoking status NHIS Never smoked tobacco [facility] Start: 12-30-2021 End: 05-21-2023 Tobacco use and exposure Smokeless tobacco non-user [facility] Start: 12-30-2021 End: 01-24-2024 Alcohol intake Ex-drinker (finding) [facility] Start: 2002 Sex Assigned At Female C [facility] Start: 02-22-2022 End: 07-22-2022 Exposure to SARS-CoV-2 (event) Not sure [facility] Start: 03-22-2022 End: 07-10-2022 History SDOH Alcohol Frequency 3 [facility] Start: 03-22-2022 History SDOH Alcohol Std Drinks 1 [facility] Start: 03-22-2022 End: 07-10-2022 History SDOH Social Connections Phone 2 [facility] Start: 03-22-2022 History SDOH Social Connections Living 98 [facility] Start: 03-22-2022 History SDOH Physica l Activity DPW 5 [facility] Start: 04-10-2022 End: 04-16-2022 Alcohol intake Current drinker of alcohol (finding) [facility] Start: 04-10-2022 History SDOH Alcohol Comment social [facility] Start: 11-13-2022 [facility] Start: 04-20-2023 End: 05-21-2023 History of Social function [facility] Start: 04-20-2023 End: 05-21-2023 Tobacco use panel [facility] Adult Depression Screening Assessment 4 [facility] At any time in the past 12 months, were you homeless or living in [facility] [including now]? No [facility] Start: 09-19-2021 Gender identity Identifies as female gender (finding) [facility] Start: 09-19-2021 Sexual orientation Heterosexual (fin ding) [facility] Are you now , , , , never or living with a partner? Refused [facility] How hard is it for y ou to pay for the very basics like food, housing, medical care, and heating Somewhat hard [facility] Do you feel stress - tense, restless, nervous, or anxious, or unable to sleep at night because your mind is troubled all the time - these days [OSQ] To some extent [facility] (I/We) worried wheth er (my/our) food would run out before (I/we) got money to buy more. Never true [facility] NEGATED: Highlighted rowStart: NINF History of tobacco use Passive smoker [facility] Goals Date Patient Goal Desired Activity /State Personal health goal Clinical Notes 02-03-2022 to 02-22-2025 Elizabeth Robertson MD - 07/12/2024 10:34 AM Linda Pagan APRN.[employer] - 07/11/2024 12:43 PM Bharathi Ness MD - 01/24/2024 3:25 PM Jeannine Garcia APRN.[employer] - 11/23/2023 12:08 PM EST Note Date & Type Note Facility 02-22-2025 Note HNO ID: [id number] Author: MAGDA CARRANZA MA Service: ? Author Type: Medical Interpreter Type: Progress Notes Filed: 02/22/2025 14:37 Note [...] Carranza MA February 22, 2025 2:35 PM [facility] 02-22-2025 Note Patient Outreach (NE TNAV) NATA QUEZADA ([id number]) 02 [facility] Date Time Provider Department 02/22/25 MAGDA [...] Encounter Status:Closed by MAGDA CARRANZA on 02/22/25 [facility] 07-12-2024 Note HNO ID: [id number] Author: ELIZABETH ROBERTSON MD Service: ? Author Type: Physician Type: Progress Notes Filed: 07/12/2024 10:43 Note Text: Nata QUEZADA is a 23 year old female who presented for brim presser ultrasound today. Encounter Diagnosis ICD-10-CM 1. Pelvic pain in female R10.2 Please see report under imaging tab. Elizabeth Robertson MD July 12, 2024 10:34 AM [facility] 07-12-2024 History of Presen t illness Narrative Nata QUEZADA is a 23 year old female who presented for brim presser ultrasound today. Encounter Diagnosis ICD-10-CM 1. Pelvic pain in female R10.2 Please see report under imaging tab. Elizabeth Robertson MD July 12, 2024 10:34 AM documented in this encounter [facility] 07-11-2024 History of Presen t illness Narrative Joanne declined clothing supervisor. Nata QUEZADA presents today for IUD check. She had a Paraguard placed on 10/01/2023. She has had pain since placement. Patient reported ultrasound 07/11/2024, reported unable to locate strings. REVIEW OF SYSTEMS: PAIN ASSESSMENT: Negative for pain, history of chronic pain, or current treatment for a chronic pain condition. SENSITIVE EXAM: The sensitive examination was discussed with the Patient or Patient's Authorized Kitchen Supervisor. As applicable, any other physician, advance practice provider, medical student, or other health professional student that will be observing or involved in the sensitive examination for educational or training purposes was discussed with the Patient or Authorized Kitchen Supervisor. The Patient or Authorized Kitchen Supervisor has agreed to proceed with the sensitive [...] 3 - Low documented in this encounter [facility] 07-11-2024 Note HNO ID: [id number] Author: LINDA MÁRQUEZ APRN.CNP Service: ? Author Type: Nurse Practitioner Type: Progress Notes Filed: 07/11/2024 13:01 Note Text: Joanne declined clothing supervisor. Nata QUEZADA presents today for IUD check. She had a Paraguard placed on 10/01/2023. She has had pain since placement. Patient reported ultrasound 07/11/2024, reported unable to locate strings. REVIEW OF SYSTEMS: PAIN ASSESSMENT: Negative for pain, history of chronic pain, or current treatment for a chronic pain condition. SENSITIVE EXAM: The sensitive examination was discussed with the Patient or Patient's Authorized Kitchen Supervisor. As applicable, any other physician, advance practice provider, medical student, or other health professional student that will be observing or involved in the sensitive examination for educational or training purposes was discussed with the Patient or Authorized Kitchen Supervisor. The Patient or Authorized Kitchen Supervisor has agreed to proceed with the sensitive [...] masses IMPRESSION/PLAN: IUD correctly positioned. Linda Márquez APRN.[employer] Medical Decision Making: Problems: Low: Acute, uncomplicated illness or injury Risk: Low: Low risk from testing/treatment Medical Decision Making Level: 3 - Low [facility] 01-24-2024 History of Presen t illness Narrative Sales And Catering Coordinator offered: Patient declines. Nata QUEZADA presents today [...] L1 SAB0 IAB0 Ectopic0 Multiple0 Live Births1 Inspector And Tester History LMP: 01/04/2024 (Exact Date), IUD Age at Menarche: 15 Age at First : Age at Menopause: Inspector And Tester History Comments: Sexual Activity: Not Currently; Male [...] external genitalia normal, normal Bartholin's glands, urethra, Joffre's glands, no vulvar lesions, no cervical lesions, [...] Bharathi Estrada MD documented in this encounter [facility] 11-23-2023 History of Presen t illness [...] 22 year old female who presents to [facility] walk in clinic for the following: [...] 22 year old female who presents to [facility] walk in clinic for UTI Sx [...] to improve. Signed: Jeannine Merrill APRN.CNP [facility] spent a total of 25 minutes on the date of the service which included preparing to see the patient, [id number] patient care, completing clinical documentation, obtaining and/or reviewing separately obtained history, performing a medically appropriate examination, counseling and educating the patient/family/caregiver, and ordering medications, tests, or procedures. documented in this encounter [facility] 09-14-2023 Miscellaneous Notes Addended by: REMI POWELL on: 09/14/2023 03:28 PM Modules accepted: Orders documented in this encounter [facility] 09-14-2023 History of Presen t illness Narrative VISIT Nata Penaloza is a 22 year old year old here for visit. Delivery Summary: Yaz Oseas Kramer [[id number]] Delivery Information: Delivery Date: 07/28/23 Delivery type: Vaginal, Spontaneous Delivering Clinician: Yodit Fuchs MD Vacuum Used: No Forceps Used: No Shoulder Dystocia Present: No Lacerations: 1st Episiotomy: None [place]: Gender: Male Weight (grams): 2772 g One Minute : 9 Five Minute : 9 ROS/ Recovery: Feeding: Breast and bottle feeding problems: None Menses since delivery: none Menstrual pattern prior to : Regular periods [place] since delivery: Resumed Depression: denies symptoms of [...] external genitalia normal, normal Bartholin's glands, urethra, Joffre's glands, no vulvar lesions, no cervical lesions, [...] Remi Powell MD documented in this encounter [facility] 08-20-2023 Miscellaneous Notes Summary: call back OB Post Discharge Patient Call Back: Date: 08/20/2023 Patient Name: Nata Penaloza : 2000 Delivery Summary: Oseas Quezada [[id number]] Delivery Information: Delivery Date: 07/28/23 Delivery type: Vaginal, Spontaneous Delivering Clinician: Yodit Fuchs MD Vacuum Used: No Forceps Used: No Shoulder Dystocia Present: No Lacerations: 1st Episiotomy: None [place]: Gender: Male Weight (grams): 2772 g One Minute : 9 Five Minute : 9 Patient was contacted after her inpatient discharge from [facility]. She reported the following as it [...] in: Bassinet Baby in need of a crib/[id number]: No Baby's feeding: Method: Human milk only. Breast Feeding Problems: Per Nata, no problems BF but is also starting to pump and feed the EBM back to baby via bottle. Frequency: Within Normal Limits Education: N/A Baby's elimination habits: Average wet diapers: Within Normal Limits Average dirty diapers: Within Normal Limits Education: N/A Follow-up appointments: Scheduled appointment with a train caller: Has seen Scheduled a follow up appointment with OB provider: Has seen Suggestions/Concerns: Things that could have been done better during your stay: N/A Current concerns: N/A Referral(s): Patient referred to: Nata was given the department's phone number as she stated that she did not have it incase she may need it in the future. Adilia Kirkpatrick RN documented in this encounter [facility] 08-19-2023 Instructions Elysia Collier MD - [...] Committee Opinion No. 670, May 2016. [employer] Gonsalo RA, Jyothi J, Dony AL, Renetta VangJ, Juan Barbour, Lauryn FIGUEROA. Contraceptive Technology. 20th rev. ed. [place]: [employer]; 2010 Yeny SE, Roshni DK, Alexei G, Greg PA, Cory M, Perry KP. Lactogenesis after early use of the contraceptive implant: a randomized controlled trial. Obstetrics & Gynecolog 2011;117:1114-21 Belen AriasD, Yinka ER, Guzman AM, Tobi JM, Peter T, Krystina EF. Insertion of Levonorgestrel-intrauterine system at three time periods:a prospective randomized corporation pilot study. Contraception 2011;84:244-8. Patty BA, Amena M, Ernesto JL, Stepan BOND, Denilson VAUGHN, Aldo ÁLVAREZ. Postplacental or delayed insertion of the levonorgestrel intrauterine device after vaginal delivery: a randomized controlled trial. Obstetrics & Gynecology 2010;116:1079-87. Up to Date: Intrauterine Contraception: Devices, Candidates and Selection, updated 04/02/17. Up to Date: Etonorgestrel Contraceptive Implant, updated 08/07/16 documented in this encounter [facility] 08-19-2023 History of Presen t illness Narrative EARLY VISIT Nata Penaloza is a 22 year old here for 3 week visit. Sales And Catering Coordinator offered: Patient declines. Delivery Summary: Oseas Quezada [[id number]] Delivery Information: Delivery Date: 07/28/23 Delivery type: [...] in bassinet/crib in parent's room, feels rested [place] since delivery: Not resumed Emotional support: Yes [...] Elysia Collier MD documented in this encounter [facility] 08-04-2023 History of Presen t illness Narrative BP 128/78 manual, 138/90 by home electronic cuff. Report to Dr. Collier who reviewed patient's [employer] message with reported pressures from home. No new orders at this time. Patient to continue taking and recording home pressures and report them on Wednesday before lunch, to call or go in to triage for >150/>105. Patient verbalizes understanding and agreement with POC. Rajni Parmar RN documented in this encounter [facility] 07-30-2023 Note HNO ID: [id number] Author: Jenni Brady CPhT Service: Pharmacy Author Type: System Support Analyst Type: Plan of Care Filed: 07/30/2023 11:20 AM Note Text: PHARMACY BEDSIDE DELIVERY SERVICE Patient Name: Nata Penaloza The marked outpatient medications were Filled at: [facility] and delivered to the patient's bedside to [...] or your Primary Care Provider. Jenni Brady [facility] PAGER: Jenni Brady [phone] 07/30/23 11:20 AM July 30, 2023 11:19 AM [facility] 07-30-2023 Note HNO ID: [id number] Author: Delaney Durand APRN.CN Service: Obstetrics Author Type: Main Galley Scullion Type: Progress Notes Filed: 07/30/2023 7:26 AM [...] July 30, 2023 TIME: 7:25 AM [facility] 07-30-2023 Note HNO ID: [id number] Author: An Azevedo MD Service: Obstetrics Author [...] July 30, 2023 TIME: 6:26 AM [facility] 07-29-2023 Note HNO ID: [id number] Author: Delaney Durand APRN.CHONG Service: Obstetrics Author Type: Main Galley Scullion Type: Progress Notes Filed: 07/29/2023 7:37 AM [...] July 29, 2023 TIME: 7:22 AM [facility] 07-29-2023 Miscellaneous Notes Please schedule a one week BP check. Thanks Delaney Baer APRN.CNM documented in this encounter [facility] 07-29-2023 Note HNO ID: [id number] Author: An Azevedo MD Service: Obstetrics Author [...] July 29, 2023 TIME: 6:09 AM [facility] 07-28-2023 Note HNO ID: [id number] Author: Carie Botello DO Service: Obstetrics Author Type: Resident Type: Progress Notes Filed: 07/28/2023 8:01 AM Note Text: Patient pushing. Dr. Fuchs in house. SIGNATURE: Carie Botello DO PATIENT NAME: Nata Penaloza DATE: 07/28/2023 TIME: 8:01 AM PAGER/CONTACT #: [phone] [facility] 07-28-2023 Note HNO ID: [id number] Author: Ada Baird MD Service: Obstetrics Author [...] : Ashlyn Palmer RN) Contractions: Regular (07/28/23 07 : Ashlyn Palmer RN) Frequency: q2 (07/28/23 07 : Ashlyn Palmer RN) A/p: Prolonged decel related to uterine activity and complete dilation -Dr. Fuchs called after tracing stabilized. On her way in. Ada Baird MD :38 AM Ada Baird MD :35 AM [facility] 07-28-2023 Note HNO ID: [id number] Author: Radha Bran DO Service: Obstetrics Author [...] July 28, 2023 TIME: 6:14 AM [facility] 07-28-2023 Note HNO ID: [id number] Author: Radha Bran DO Service: Obstetrics Author [...] July 28, 2023 TIME: 4:44 AM [facility] 07-28-2023 Note HNO ID: [id number] Author: Rodri French APRN.RECYCLING OPERATIONS MANAGER Service: Anesthesiology Author Type: Nurse Precision Grinder External Type: Anesthesia Procedure Notes Filed: 07/28/2023 2:40 AM Note Text: ANESTHESIOLOGY PROCEDURE NOTE Epidural Block General Information Procedure Start Time/Medication Administration: 07/28/2023 2:05 AM Patient location during procedure: [facility] room Timeout Performed Pre-procedure: timeout performed Consent Obtained: Yes Patient identity confirmed: arm band, 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 and 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 Reason for block: labor epidural Staffing RECYCLING OPERATIONS MANAGER: Rodri French APRN.RECYCLING OPERATIONS MANAGER Performed by: [place] Preparation Sterility Preparation: hand [...] July 28, 2023 TIME: 2:39 AM CSN: [id number] [facility] 07-28-2023 Note HNO ID: [id number] Author: Coral Freeman MD Service: Obstetrics Author [...] July 28, 2023 TIME: 1:49 AM [facility] 07-28-2023 Note HNO ID: [id number] Author: Coral Freeman MD Service: Obstetrics Author [...] July 27, 2023 TIME: 10:58 PM [facility] 07-27-2023 Note HNO ID: [id number] Author: Leelee Saini MD Service: Obstetrics Author [...] Blood Loss: None Leelee Saini MD [facility] 07-27-2023 History of Past i [...] of this encounter (statuses as of 07/29/2023) [facility] History of Past illness Narrative* Problem [...] of this encounter (statuses as of 08/04/2023) [facility] History of Past illness Narrative* Problem [...] of this encounter (statuses as of 08/05/2023) [facility] History of Past illness Narrative* Problem [...] of this encounter (statuses as of 08/20/2023) [facility] History of Past illness Narrative* Problem [...] of this encounter (statuses as of 08/21/2023) [facility] History of Past illness Narrative* Problem [...] of this encounter (statuses as of 09/15/2023) [facility] History of Past illness Narrative* Problem [...] of this encounter (statuses as of 11/23/2023) [facility]10-[facility]-2023 NoteHNO ID: [id number] Author: Darling Rust DO Service: Obstetrics Author Type: Resident Type: Progress Notes Filed: 07/26/2023 8:51 PM Note Text: Return precautions for pre-eclampsia reviewed including DOMINGUEZ not responsive to tylenol, vision changes, SOB, CP, RUQ pain, and BP reading greater than 150/100. Patient verbalized understanding. Darling Rust [facility]10-23-2023 NoteHNO ID: [id number] Author: Elizabeth Storey DO Service: ? Author Type: Resident Type: Progress Notes Filed: 07/26/2023 8:09 PM Note Text: We have reviewed her labs and there is no concern for pre-eclampsia at this time. Return precautions reviewed with patient. CBC, Coags, BMP, Mg, Phos Recent Labs 07/26/231852 WBC 11.02* HB 13.8 HCT 39.1 PLT 211 NA 135* K 3.7 CHLOR 101 CO2 20* BUN 13 CREAT 0.54* GLUC 71* CA 9.0 UPC 0.1 07/26/23184407/26/23189907/26/23191407/26/231929 BP: 139/98 146/105 152/103 133/90 SpO2: Patient discharged home in stable condition with plan to make appointment for bp check in the morning Reviewed with Dr. Baird and Dr. Shantal Storey DO [facility] Emergency Medicine Res[facility] NoteHNO ID: [id number] Author: Ada Baird MD Service: Obstetrics Author [...] MD DATE: July 26, 2023 TIME: 8:28 [facility]10-23-2023 NoteHNO ID: [id number] Author: Elizabeth Storey DO Service: Obstetrics Author [...] NAD, comfortable Heart: RR, S1, S2, no opol, rub, or murmur appreciated Lungs: clear to [...] Penaloza DATE: July 26, 2023 TIME: 6:41 [facility]10-23-2023 Miscellaneous Notes* Telephone Encounter - Jessie Whaley [...] understanding. Jessie Whaley LPN [facility] History of Present illness Narrative* Remi Powell MD - 07/23/2023 3:16 PM EDT Please refer to quick note and flow sheet. Remi Powell MD documented in this encounterBer[facility]10-[facility]2023 Miscellaneous Notes* Quick Notes - Remi [...] day. Remi Powell MD documented in this encounterBer[facility]10-[facility]23 Nurse Note* Karli Pineda Ma - 07/23/2023 2:52 PM EDT Movement? Active baby Vaginal Bleeding: NO Vaginal fluid leakage of fluid: NO Contractions: [place] type documented in this encounterBerger Hospital10-[facility]-2023 History of Present illness Narrative* Georgiana Kasper MA - 07/23/2023 12:02 PM EDT POPULATION HEALTH NAVIGATION OUTREACH Action/FYI Called and spoke with pt and confirmed/updated train caller. Patient Identified by Name and : YES, via phone Outreach Outcome/Action OB/PEDS field updated Did you use a PCP flex slot to schedule this appointment? N/A Reason for Outreach [place] Payer: Payor: P AETNA / Plan: EHP STAFF/NON STAFF / [...] 23, 2023 12:03 PM documented in this encounterBerger Hospital10-14-2023 History of Present illness Narrative* Remi Powell MD - 07/17/2023 12:37 PM EDT Please refer to quick note and flow sheet. Remi Powell MD documented in this encounterBerger Hospital10-14-2023 Miscellaneous Notes* Quick Notes - Remi Powell MD - 07/17/2023 12:36 PM EDT Here for routine Visit at 37w1d. No complaints. Good movement. No vaginal bleeding, leakage of fluids, contractions. Ob education done, questions answered. GBS done. Remi Powell MD documented in this [facility]10-13-2023 Nurse Note* Kinza Fuchs Ma - 07/16/2023 3:14 PM EDT Movement? Active baby Vaginal Bleeding: NO Vaginal fluid leakage of fluid: NO Contractions: no contractions documented in this [facility]09-28-2023 History of Present illness Narrative* Remi Powell MD - 07/01/2023 6:23 PM EDT Please refer to quick note and flow sheet. Remi Powell MD documented in this [facility]09-28-2023 Miscellaneous Notes* Quick Notes - Remi Powell MD - 07/01/2023 6:22 PM EDT Here for routine Visit at 34w6d. No complaints. Good movement. No vaginal bleeding, leakage of fluids, contractions. Ob education done, questions answered. BP wnl. GBS next visit. Remi Powell MD documented in this [facility]09-28-2023 Nurse Note* Kinza Fuhcs Ma - 07/01/2023 3:32 PM EDT Movement? Active baby Vaginal Bleeding: NO Vaginal fluid leakage of fluid: NO Contractions: no contractions documented in this encounterBerger Hospital09-23-2023 History of Present illness Narrative* Elysia Collier MD - 06/26/2023 4:10 PM EDT Please refer to flow sheet and comments for OB note. Elysia Collier MD documented in this [facility]09-22-2023 Miscellaneous Notes* Quick Notes - Elysia Collier [...] accepts. Elysia Collier MD documented in this [facility]09-22-[facility]23 Nurse Note* Karli Pineda Ma - 06/25/2023 3:17 PM EDT Movement? Active baby Vaginal Bleeding: NO Vaginal fluid leakage of fluid: NO Contractions: no contractions documented in this encounterBerger Hospital08-23-2023 History of Present illness Narrative* Tonya Gerardo APRN.OYSTER FARMER - 05/26/2023 6:53 PM EDT This note was created using NoteWriter. Subjective Nata Penaloza is a 22 year old female. 22 year old female with PMH T & A who is currently 29 weeks (G1) gestational presents with complaints of illness. Sore throat Acute onset 05/18/23 Seen @ [facility], strep negative COVID negative Presents today with continued sx. Denies eye, ear, or nose complaints. Denies cough. Vaginal discharge Slightly yellow +odorous Denies vaginal bleeding. Denies sx. Denies abdominal cramping. 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 The history is provided by the patient. No american sign language teacher was used. Sore Throat This is a [...] mouth once daily as needed for nausea/vomiting. [id number] 27 mg iron-800 mcg-260 mg Take 1 [...] patient that express care does not handle COTTONSEED MEAT PRESSER complaints, She is to call her COTTONSEED MEAT PRESSER first thing in morning for evaluation and management. Verbalized understanding. Tonya Gerardo APRN.VIRGEN documented in this encounterBerger Hospital08-18-2023 History of Present illness Narrative* Remi Powell MD - 05/21/2023 9:00 AM EDT Please refer to quick note and flow sheet. Remi Powell MD documented in this encounterBerger Hospital08-18-2023 Miscellaneous Notes* Quick Notes - Remi Powell MD - 05/21/2023 9:00 AM EDT Here for routine Visit at 29w0d. No complaints. Good movement. No vaginal bleeding, leakage of fluids, contractions. Ob education done, questions answered. CBC and Tdap today. Remi Powell MD documented in this encounterBerger Hospital08-18-2023 Nurse Note* Ghislaine Baltazar MA - 05/21/2023 8:44 AM EDT Movement? Active baby Vaginal Bleeding: NO Vaginal fluid leakage of fluid: NO Contractions: no contractions documented in this encounterBerger Hospital08-16-2023 Instructions* Patient Instructions* Jerri Saab APRN.CNP [...] the spread of infection. documented in this encounterBerger Hospital08-16-2023 History of Present illness Narrative* Jerri Saab APRN.CNP - 05/19/2023 3:02 PM EDT Images from the original note were not included. CC: 5/10 sore throat since yesterday The history is provided by the patient The patient's preferred language is Latvian PAST MEDICAL HISTORY Diagnosis Date No pertinent [...] follow-ups on file. Signed: RA Armando [facility] spent a total of 15 minutes on the date of the service which included preparing to see the patient, dvzy-pr-ywhd patient care, completing clinical documentation, obtaining and/or reviewing separately obtained history, performing a medically appropriate examination, counseling and educating the pat ient/family/caregiver, and ordering medications, tests, or procedures. documented in this encounterBerger Hospital07-18-2023 Miscellaneous Notes* Quick Notes - Orlando Burroughs MD - 04/20/2023 8:24 AM EDT 1 hour, W/O complaint, No LOF, No Ctx's, No Vag bleed. Juana Burroughs MD documented in this encounterBerger Hospital07-18-2023 Nurse Note* Kinza Fuchs Ma - 04/20/2023 8:19 AM EDT Movement? Active baby Vaginal Bleeding: NO Vaginal fluid leakage of fluid: NO Contractions: no contractions documented in this encounterBerger Hospital05-02-2023 History of Present illness Narrative* Remi Powell MD - 02/02/2023 2:56 PM EDT Please refer to quick note and flow sheet. Remi Powell MD documented in this encounterBerger Hospital05-02-2023 Miscellaneous Notes* Quick Notes - Remi Powell MD - 02/02/2023 2:54 PM EDT Here for routine Visit at 13w4d. No complaints. No vaginal bleeding, leakage of fluids, contractions. Ob education done, questions answered. Labs reviewed. Remi Powell MD documented in this encounterBerger Hospital05-01-2023 Miscellaneous Notes* Telephone Encounter - Melony Bryan [...] that results will be released on to [facility] and not to look if she [...] results. Melony Bryan RN documented in this encounterBerger Hospital04-28-2023 Nurse Note* Kinza Fuchs Ma - 01/29/2023 8:11 AM EDT Movement? 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 Remi Powell MD documented in this encounterBerger Hospital03-24-2023 Instructions* Patient Instructions* Remi Powell MD - 12/25/2022 10:05 AM EDT Please select the following link to access the [facility] Your Guide to a Healthy . [email or web address] documented in this encounterBerger Hospital03-24-2023 Nurse Note* Ghislaine Baltazar MA - 12/25/2022 9:37 AM EDT Movement? Too early Vaginal Bleeding: NO Vaginal fluid leakage of fluid: NO Contractions: no contractions documented in this encounterBerger Hospital02-27-2023 Instructions* Patient Instructions* Maegan Morrissey PA-C - 11/30/2022 12:38 PM EST OB-CDL COMPANY DRIVER [phone] documented in this encounterBerger Hospital02-27-2023 History of Present illness Narrative* Maegan Morrissey PA-C - 11/30/2022 12:16 PM EST Images from the original note were not included. Medicine [place] Department of General Internal Medicine [facility] Outpatient Visit Date: November 30, 2022 CC: [...] ICD9: V72.42, ICD10: Z32.01 - CONSULT TO COTTONSEED MEAT PRESSER - Urine HCG positive in office today. [...] plan. Maegan Morrissey PA-C documented in this encounterBerger Hospital02-07-2023 Miscellaneous Notes* Telephone Encounter - JERI Barahona - 11/10/2022 9:35 AM EST I called Nata about the IOP at the request of Rjani Evans. She declined. documented in this encounterBerger Hospital01-31-2023 History of Present illness Narrative* EMIGDIO Tinoco - 11/03/2022 3:00 PM EST GENERAL PSYCHOLOGY Virtual Visit Verified that patient is in [facility]. This provider is also in the [facility] Patient was seen for an initial [...] Together 3 months. 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 Stopped that job, moved to [place], but has moved back. PAST MEDICAL HISTORY [...] No Known Allergies REFERRAL SOURCE: Psychiatrist - [facility] CHIEF COMPLAINT: " Reconsolidation. Therapist." HPI: was seeing another therapist who referred to me- meaning [facility]. Thought it would be helpful for me [...] Eating D/o Prior Psychiatrist: Followed here at [facility] by Frida Gamboa Therapist: No prior therapist Current Hog Handler: None Last Hospitalization: None SUICIDE RISK ASSESSMENT: [...] sister. The patient wasborn and raised in [facility] She completed High school, trade school during HS for medical administrative assistant. She described her childhood as loving, supportive, [...] Legal: Pt. denied any past legal history Spirituality/Cheondoism: spiritual, believes in Gd Flashbacks + when [...] Talking about future goals or plans and Uosz-bmwipyn-qpmj-rejecting - Perceptions: The patient does not appear [...] that level of care. Patient expressed understanding thatBer[facility] providers are asked to provide short-term [...] Patient was encouraged to follow up with [facility] and discuss concerns re medication Pt was encouraged to consider IOP Pt would be served by referral to penitentiary therapy after IOP EMIGDIO Tinoco documented in this encounterBerger Hospital12-31-2022 Miscellaneous Notes* Telephone Encounter - Rachel Glynn - 10/03/2022 12:34 PM EST Patient given results and verbalized understanding of instructions given.sc Rachel Glynn * Telephone Encounter - Jesika Stearns PA-C - 10/03/2022 10:40 AM EST Please let her know not to drink any alcohol while on the Flagyl, will make her very ill. The Diflucan sent in yesterday should take care of the yeast. If symptoms are persisting follow-up with COTTONSEED MEAT PRESSER. * Telephone Encounter - Radha Temple LPN [...] in. Patricia Nuno APRN.CNP documented in this encounterBerger Hospital12-30-2022 History of Present illness Narrative* [place] [...] similar. Patient denies the use of any itwz-ctx-eortriv medications or home remedies for symptom management. [...] Objective Physical Exam Exam conducted with a clothing supervisor present. Constitutional: General: She is not [...] of care. This note was generated using [employer] software. It may contain errors in wording, punctuation, or spelling. [place] Goss APRN.VIRGEN documented in this encounterBerger Hospital10-19-2022 History of Present illness Narrative* Wilver [...] 22, 2022 5:16 PM documented in this encounterBerger Hospital10-14-2022 Nurse Note* Kasia Blackmon MA - [...] not greater than 100.4F/38C):NO Denies history of Guillain-[place] Syndrome (a severe paralytic illness): NO Denies [...] G10: Yes, Is the patient active on [employer] [place] [employer] Yes What is the patients preferred method of communication: MyChart Torres Talamantes LPN documented in this encounterBerger Hospital10-14-2022 History of Present illness Narrative* Hellen [...] IM Hellen Paez MD documented in this encounterBerger Hospital10-13-2022 Instructions* Patient Instructions* Elysia Campbell APRN.CNP - 07/16/2022 4:31 PM EDT Plan: Swabs done today to evaluate discharge Recommend making sure emptying bladder completely Can try hot bath to help relax pelvic floor Elysia Campbell APRN.CNP documented in this encounterBerger Hospital10-13-2022 History of Present illness Narrative* Elysia [...] Can be painful GI - No symptoms [place] - no pain Has had some yellow discharge lately. Maybe some odor No concerns for STDs. Using condoms but accepts STD testing First sexually active at the beginning of this month. Then these symptoms all started Had to stop OCP due to mood changes Depo in the past OB History T0 L0 SAB0 IAB0 Ectopic0 Multiple0 Live Births0 Inspector And Tester History LMP: 04/01/2022, Having periods Age at Menarche: 15 Age at First : Age at Menopause: Inspector And Tester History Comments: Sexual Activity: Not Currently; Male [...] sodium chloride 0.65 % drop Use 1 [place] in the nose. (Patient not taking: Reported [...] external genitalia normal, normal Bartholin's glands, urethra, Joffre's glands, no vulvar lesions, no cervical lesions, [...] Level: 3 - Low documented in this encounterBerger Hospital10-05-2022 History of Present illness Narrative* Wilver [...] 08, 2022 3:34 PM documented in this encounterBerger Hospital09-30-2022 History of Present illness Narrative* Giovanny Duncan RT(R) - 07/03/2022 3:00 PM EDT Radiology [...] 03, 2022 12:27 PM documented in this encounterBerger Hospital09-28-2022 History of Present illness Narrative* Wilver [...] sodium chloride 0.65 % drop Use 1 [place] in the nose. (Patient not taking: Reported [...] nausea, vomiting, dizziness, vertigo, diarrhea. PHYSICAL EXAMINATION: [facility] 04/01/2022 Patient is alert and oriented x3. [...] which included preparing to see the patient, zayk-sr-vedb patient care, completing clinical documentation, performing a [...] 01, 2022 5:15 PM documented in this encounterBerger Hospital07-12-2022 History of Present illness Narrative* Carmen [...] sodium chloride 0.65 % drop Use 1 [place] in the nose. montelukast (SINGULAIR) 10 mg [...] Level: 4 - Moderate documented in this encounterBerger Hospital07-12-2022 Nurse Note* Tori Garcia RN - 04/14/2022 3:06 PM EDT Tobacco Use: Never Was smoking cessation packet given? N/A - Patient is a non-smoker or quit >1 year ago. Was a referral initiated?N/A Patient is a non-smoker documented in this encounterBerger Hospital07-12-2022 History of Present illness Narrative* Lois Petersen MA - 04/14/2022 10:41 AM EDT POPULATION HEALTH NAVIGATION OUTREACH Action/FYI April 14, 2022 Spoke with patient. We have scheduled her [facility] follow up with Maxine Zhu [...] "TCM Eligible through 04/26" will forward to education counselor SUMMARY: Pt discharged from [facility] on 04/12/22. Admitted for: Syncope/Nausea Contact made with patient: Yes Hi my name is Frida Mahi, RN and I am calling from the [facility] on behalf of your PCP, Hellen [...] to speak with a social work steam fitter helper to help give you support for any [...] I will send your request to a education counselor who will contact and assist you with that appointment. This will give you an opportunity to ask any questions or address any concerns youmay have with your PCP. Inform the patient that if they have any questions or concerns prior to that appointment, to call their PCP's office right away. ACTION TAKEN: Patient desires an appointment - Routed to [facility] [[id number]] for schedulingtelehealth visit (telephonic, virtual visit, or [...] PCP follow up SUMMARY: Pt discharged from [facility] on 04/12/22. Admitted for: Syncope/Nausea Contact made with patient: No - next outreach attempt will be on next rAgelia, this is Roxie dunlap registered nurse pet caregiver calling from the [facility] on behalf of your primary care [...] TCM Home Visit Referral Source of Stratification: [facility] Hospital Admission Status: Discharged Readmission Risk [...] No Dialysis Patient: No documented in this encounterBerger Hospital07-08-2022 History of Present illness Narrative* Luana [...] agrees. Luana Nevarez APRN.VIRGEN documented in this encounterBerger Hospital07-06-2022 History of Present illness Narrative* Maxine Dewitt APRN.CNP - 04/08/2022 11:30 AM EDT Images from the original note were not included. Women's Health [place] Department of Benign Gynecology [facility] PATIENT NAME: Nata Penaloza DATE: 04/08/2022 Patient Name and verified: Yes Patient Location: [place] This Virtual Visit was completed using [employer] Chart Zoom platform. Chief Complaint CC: control [...] active. She is on 5th floor in [facility] - Rheumatology. Cycles are regular; bleeding during placebo week Breakthrough bleeding: No Dysmenorrhea: No Heavy flow: No Compliant: Yes Side effects: No BP: N/A Last 4 Encounter BP Readings: Date: BP: 03/31/2022 140/88[Initial Blood Pressure[ 03/04/2022 128/75 12/30/2021 104/68 OB History T0 L0 SAB0 IAB0 Ectopic0 Multiple0 Live Births0 Inspector And Tester History LMP: 02/21/2022 (Approximate), Having periods Age at Menarche: 15 Age at First : Age at Menopause: Inspector And Tester History Comments: Sexual Activity: Not Currently; Male [...] sodium chloride 0.65 % drop Use 1 Oxford in the nose. montelukast (SINGULAIR) 10 mg [...] 4) Follow up PRN and for annual [employer] DRIVER exams The following approved medication requests have [...] Telephone [facility] [address] [address] SIGNATURE: Maxine Dewitt APRN.CNP PAGER: [phone] Medical Decision Making: Problems: Moderate: 1+ chronic illnesses with change Risk: Moderate: Drug management Medical Decision Making Level: 4 - Moderate documented [facility] Instructions* Patient Instructions* Angela Ray MD - 03/31/2022 4:22 PM EDT Thank you for coming in today! It was a pleasure to see you at [facility] today. Before your next [...] access care: - To reach office, call [phone] during business hours. - To schedule an appointment or with after hours health concerns, call scheduling at [phone]. - Schedule specialty appointments, call [phone] ([phone]) - For non-urgent questions and medications refills, please send me a [employer] message and allow 3 business days for a response or call [phone] - Labs can be done at any [facility] location, orders are active for 1 month Angela Ray MD Internal Medicine and Pediatrics Staff 03/31/22 4:23 PM documented in this encounterBerger Hospital06-28-2022 History of Present illness Narrative* Angela Ray MD - 03/31/2022 4:07 PM EDT [facility] - G10 03/31/2022 [...] sodium chloride 0.65 % drop Use 1 Oxford in the nose. montelukast (SINGULAIR) 10 mg [...] which included preparing to see the patient, bfyp-po-ciic patient care, completing clinical documentation, obtaining and/or reviewing separately obtained history, performing a medically appropriate examination, counseling and educating the pat ient/family/caregiver and ordering medications, tests, or procedures. Angela Ray MD documented in this encounterBerger Hospital06-28-2022 Nurse Note* MILES Eddy - 03/31/2022 3:53 [...] of communication: MILES Pino documented in this encounterBerger Hospital06-07-2022 Miscellaneous Notes* Telephone Encounter - Maxine Dewitt APRN.CNP - 03/10/2022 3:17 PM EDT The following approved medication requests have been transmitted electronically. Signed Prescriptions Disp Refills Desogestrel-Ethinyl Estradiol (MARIAELENA, 28,) 0.15-0.03 mg per tablet 84 tablet 0 Sig: Take 1 tablet by mouth once daily. ROYN: No Pharmacy Information Pharmacy Address Telephone [facility] [address] [place] [phone] Appointments for Next 60 Days Date Time Provider Location Dept Phone 04/08/2022 11:30 AM MAXINE DEWITT Bldg [phone] Maxine Dewitt APRN.CNP March 10, 2022 3:17 PM documented in this encounterBerger Hospital06-01-2022 Instructions* Patient Instructions* Louann Garcia PA-C [...] treated. A physician, nurse practitioner or physician child welfare assistant may treat with a short course [...] women if symptoms resolve. documented in this encounterBerger Hospital06-01-2022 History of Present illness Narrative* Louann Garcia PA-C - 03/04/2022 5:57 PM EDT Subjective Ntaa Penaloza is a 21 year old female with no significant past medical history who presents to [facility] today for evaluation of dysuria and urinary [...] which included preparing to see the patient, jeyq-[id number]-hrru patient care, completing clinical documentation, performing a medically appropriate examination, counseling and educating the patient/family/caregiver and ordering medications, tests, or procedures. documented in this encounterBerger Hospital06-01-2022 History of Present illness Narrative* Romario Elias PA-C - 03/04/2022 10:29 AM EDT This is an Express Care eVisit note for Nata Penaloza eVisit/Questionnaire reviewed The chief complaint for the visit - Patient presents with: Urinary Problem Recommendations/Treatment plan - See My Chart Message to patient Romario Elias PA-C documented in this encounterBerger Hospital06-01-2022 History of Present illness Narrative* Romario Elias PA-C - 03/04/2022 10:17 AM EDT This is an Express Care eVisit note for Nata Penaloza eVisit/Questionnaire reviewed The chief complaint for the visit - Patient presents with: Urinary Problem Recommendations/Treatment plan - See My Chart Message to patient Romario Elias PA-C documented in this encounterBerger Hospital05-03-2022 History of Present illness Narrative* Maegan Stinson APRN.CNP - 02/03/2022 2:12 PM EDT This is an Express Care eVisit note for Nata Penaloza eVisit/Questionnaire reviewed The chief complaint for the visit - Patient presents with: UTI Recommendations/Treatment plan - See My Chart Message to patient Maegan Stinson APRN.CNP Total time spent on e-Visit: 3 minutes documented in this encounterBer[facility]* Diagnosis Treatment not available- Primary Procedure not carried out for other reasons documented [facility] this encounter [facility]* Diagnosis Leukocytes in urine- Primary Other cells and casts in urine Dysuria Urinary frequency documented in this encounter [facility]* Diagnosis Encounter for initial prescription of contraceptive pills General counseling for prescription of oral contraceptives documented in this encounter [facility]* Diagnosis Wellness examination- Primary 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, congenital Other specified congenital anomaly of pharynx Cleft palate, unspecified Chronic midline 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 sciatica Vasovagal syncope Syncope and collapse documented in this encounter [facility]* Diagnosis Emergency contraception- Primary Encounter for initial prescription of contraceptive pills General counseling for prescription of oral contraceptives Decreased appetite Anorexia History of recent stressful life event documented in this encounter [facility]* Diagnosis Procedure not carried out- Primary Procedure not carried out for other reasons documented in this encounter [facility]* Diagnosis Allergic rhinitis, unspecified seasonality, unspecified trigger- Primary Dysfunction of both eustachian tubes Dysfunction of Eustachian tube documented in this encounter [facility]* Diagnosis Chronic bilateral thoracic back pain- Primary documented in this encounter [facility]* Diagnosis Chronic bilateral thoracic back pain documented in this encounter [facility]* Diagnosis Chronic bilateral thoracic back pain- Primary Chronic bilateral 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 sciatica documented in this encounter [facility]* Diagnosis Urinary urgency- Primary Urgency of urination Feeling of incomplete bladder emptying Incomplete bladder emptying Vaginal discharge Leukorrhea, not specified as infective Vaginal odor Unspecified symptom associated with female genital organs Urinary frequency documented in this encounter [facility]* Diagnosis Primary insomnia- Primary Persistent disorder of initiating or maintaining sleep Cyclothymia Cyclothymic disorder Recurrent syncope Chronic maxillary sinusitis Encounter for immunization Need for other specified prophylactic vaccination against single bacterial disease documented in this encounter [facility]* Diagnosis Chronic bilateral thoracic back pain- Primary documented in this encounter [facility]* Diagnosis Urinary frequency- Primary Vaginal discharge Leukorrhea, not specified as infective documented in this encounter [facility]* Diagnosis Bipolar II disorder (HCC)- Primary Other bipolar disorders Post traumatic stress disorder (PTSD) Posttraumatic stress disorder Eating disorder, unspecified type documented in this encounter [facility]* Diagnosis confirmed by positive urine test- Primary examination or test, positive result Possible examination or test, unconfirmed [facility]* Diagnosis Encounter for supervision of normal first in first trimester- Primary Supervision of normal first confirmed by positive urine test examination or test, positive result [facility]* Diagnosis Encounter for supervision of normal first in first trimester- Primary Supervision of normal first IUD migration, initial encounter documented in this encounter [facility]* Diagnosis Candidal vaginitis- Primary Candidiasis of vulva and vagina documented in this encounter [facility]* Diagnosis Encounter for anatomic survey- Primary Encounter for screening of mother Unspecified screening documented in this encounter [facility]* Diagnosis Encounter for supervision of normal first in second trimester- Primary Supervision of normal first 24 weeks gestation of state, incidental documented in this encounter [facility]* Diagnosis Sore throat- Primary Acute pharyngitis Suspected COVID-19 virus infection documented in this encounter [facility] note* Diagnosis Encounter for supervision of normal first in third trimester- Primary Supervision of normal first [facility]* Diagnosis Pharyngitis, unspecified etiology- Primary documented in this encounter [facility] note* Diagnosis Encounter for supervision of normal in third trimester, unspecified - Primary Elevated blood pressure affecting in third trimester, antepartum Need for influenza vaccination Need for prophylactic vaccination and inoculation against influenza 34 weeks gestation of state, incidental documented in this encounter [facility] note* Diagnosis Encounter for supervision of normal first in third trimester- Primary Supervision of normal first documented in this encounter [facility] note* Diagnosis Encounter for supervision of normal in third trimester, unspecified - Primary documented in this encounter [facility] note* Diagnosis Encounter for supervision of normal in third trimester, unspecified - Primary documented in this encounter [facility] note* Diagnosis BP check- Primary Screening for hypertension documented in this encounter [facility] note* Diagnosis Encounter for screening for maternal depression- Primary [facility]* Diagnosis care and examination- Primary Routine follow-up Cervical cancer screening Screening for malignant neoplasm of the cervix documented in this encounter [facility] note* Diagnosis Acute cystitis with hematuria- Primary Acute cystitis UTI symptoms Other symptoms involving urinary system documented in this encounter [facility] note* Diagnosis Pelvic pain in female- Primary Unspecified symptom associated with female genital organs IUD check up Surveillance of previously prescribed intrauterine contraceptive device Abnormal uterine bleeding (AUB) documented in this encounter [facility] note* Diagnosis Surveillance of previously prescribed intrauterine contraceptive device- Primary documented in this encounter [facility] note* Diagnosis Pelvic pain in female Unspecified symptom associated with female genital organs documented in this encounter [facility] note* Diagnosis Ovarian cyst, right- Primary Other and unspecified ovarian cyst documented in this encounter [facility] for referral (narrative)* Diagnostic Procedure Only (Routine) - Authorized Specialty Diagnoses / Procedures Referred By Gonsalo tan Referred To Contact XR IMAGING Diagnoses Chronic bilateral thoracic back pain Procedures XR THORACIC GENERAL 3V AP/LAT/SWIMMERS RADEX SPINE THORACIC 3 VIEWS Wilver Montemayor DC [address] [place] [address] Xr Imaging Referral ID Status Reason Start Date Expiration Date Visits Requested Visits Authorized [id number] Authorized Auto-Generat ed Referral 07/01/2022 07/31/2023 1 1 [facility] for referral (narrative)* Diagnostic Procedure Only (Routine) - Closed Specialty Diagnoses / Procedures Referred By Contac t Referred To Contact XR IMAGING Diagnoses Chronic bilateral thoracic back pain Procedures XR THORACIC GENERAL 3V AP/LAT/SWIMMERS RADEX SPINE THORACIC 3 VIEWS Wilver Montemayor DC [address] [place] [address] Xr Imaging Referral ID Status Reason Start Date Expiration Date V isits Requested Visits Authorized [id number] Closed Auto-Generate d Referral 07/01/2022 07/31/2023 1 1 [facility] for referral (narrative)* Diagnostic Procedure Only (Routine) - Authorized Specialty Diagnoses / Procedures Referred By Contac t Referred To Contact [facility] Diagnoses Encounter for supervision of normal first in first trimester Procedures NUCHAL TRANSLUCENCY WHI US NUCHAL TRANSLUCENCY 1ST GESTATION Remi Powell MD [address] [facility] [address] [place] [address] [address] Referral ID Status Reason Start Date Expiration Date Visits Requested Visits Authorized [id number] Authorized Auto-Generat ed Referral 12/25/2022 12/25/2023 1 1 [facility] for referral (narrative)* Outpatient Procedure (Routine) - Authorized Specialty Diagnoses / Procedures Referred By Contac t Referred To Contact [facility] Diagnoses Sore throat Procedures OXIMETRY AT REST NONINVASIVE EAR/PULSE OXIMETRY Jerri Hinkle, DIRECTOR OF QUALITY 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 [address] [place] [address] Respiratory [place] [address] [place] [address] Referral ID Status Reason Start Date Expiration Date Visits Requested Visits Authorized [id number] Authorized Auto-Generat ed Referral 05/19/2023 06/17/2024 1 1 [facility] for referral (narrative)* Diagnostic Procedure Only (Routine) - Authorized Specialty Diagnoses / Procedures Referred By Contac t Referred To Contact [facility] Diagnoses Pelvic pain in female Procedures PELVIC US [facility] US PELVIC NONOBSTETRIC REAL-TIME IMAGE COMPLETE Bharathi Estrada MD [address] [place] [address] [address] Referral ID Status Reason Start Date Expiration Date Visits Requested Visits Authorized [id number] Authorized Auto-Generat ed Referral 01/24/2024 01/23/2025 1 1 [facility] for referral (narrative)* Diagnostic Procedure Only (Routine) - New Request Specialty Diagnoses / Procedures Referred By Contac t Referred To Contact [facility] Diagnoses Ovarian cyst, right Procedures PELVIC US [facility] US PELVIC NONOBSTETRIC REAL-TIME IMAGE COMPLETE Bharathi Estrada MD [address] [place] [address] [facility] [address] [place] [address] Referral ID Status Reason Start Date Expiration Date Visits Requested Visits Authorized [id number] New Request Auto-Generat ed Referral 07/12/2024 07/12/2025 1 1 T [facility] for visit Narrative* Diagnostic Procedure Only (Routine) - Closed Specialty Diagnoses / Procedures Referred By Contac t Referred To Contact [facility] Diagnoses Pelvic pain in female Procedures PELVIC US [facility] US PELVIC NONOBSTETRIC REAL-TIME IMAGE COMPLETE Bharathi Estrada MD [address] [place] [address] [facility] [address] [place] [address] Referral ID Status Reason Start Date Expiration Date V isits Requested Visits Authorized [id number] Closed Auto-Generate d Referral 01/24/2024 01/23/2025 1 1 [facility] Advance Directives No Advanced Directives Records FoundDocuments on File Type Date Recorded 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 Expl 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 Advance Directive(s) 04/10/2022 7:51 PM Documents on File Type Date Recorded 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 Expl 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 Advance Directive(s) 04/10/2022 7:51 PM Reason for Referral Specialty Diagnoses / Procedures Referred By Contac t Referred To Contact Diagnoses Dysfunction of both eustachian tubes Procedures ADULT HEARING TEST/AUDIOGRAM COMPRE AUDIOMETRY THRESHOLD [place] [address] [place] [address] [facility] [address] [place] [address] Referral ID Status Reason Start Date Expiration Date Visits Requested Visits Authorized [id number] Authorized Auto-Generat ed Referral 04/14/2022 07/13/2022 1 1 Specialty Diagnoses / Procedures Referred By Contac t Referred To Contact Allergy Diagnoses Allergic rhinitis, unspecified seasonality, unspecified trigger Procedures CONSULT TO ALLERGY/IMMUNOLOGY OFFICE/OUTPATIENT [facility] 60-74 MINUTES Carmen Ramirez MD [address] [place] [address] Referral ID Status Reason Start Date Expiration Date Visits Requested Visits Authorized [id number] Authorized PCP Requested Referral 04/14/2022 04/14/2023 1 1 Specialty Diagnoses / Procedures Referred By Contac t Referred To Contact Diagnoses Recurrent syncope Procedures CONSULT TO SYNCOPE CLINIC OFFICE/OUTPATIENT [facility] 60-74 MINUTES Hellen Paez MD [address] [place] [address] Referral ID Status Reason Start Date Expiration Date Visits Requested Visits Authorized [id number] Authorized PCP Requested Referral 07/17/2023 1 1 Specialty Diagnoses / Procedures Referred By Contac t Referred To Contact ADULT PSYCHIATRY Diagnoses Bipolar II disorder (HCC) Post traumatic stress disorder (PTSD) Eating disorder, unspecified type Procedures CONSULT TO INTENSIVE OUTPATIENT PROGRAM (IOP) OFFICE/OUTPATIENT [facility] 60-74 MINUTES Rajni Evans LISW [address] [place] [address] Psyc Adult [facility] [address] [place] [address] Referral ID Status Reason Start Date Expiration Date Visits Requested Visits Authorized [id number] Authorized PCP Requested Referral 11/03/2022 11/03/2023 1 1 Specialty Diagnoses / Procedures Referred By Contac t Referred To Contact Diagnoses confirmed by positive urine test Procedures CONSULT TO COTTONSEED MEAT PRESSER OFFICE/OUTPATIENT [facility] 60-74 MINUTES Maegan Morrissey, MEET [address] [place] [address] Referral ID Status Reason Start Date Expiration Date Visits Requested Visits Authorized [id number] Authorized PCP Requested Referral Auto-Generate d Referral [...] or prosecute any alcohol or drug abuse patient.[facility] HospitalIn the event this information is protected by the Federal Confidentiality of Alcohol and Drug Abuse Patient Records regulations: The Federal rules restrict any use of the information to criminally investigate or prosecute any alcohol or drug abuse patient.[facility] HospitalIn the event this information is protected by the Federal Confidentiality of Alcohol and Drug Abuse Patient Records regulations: The Federal rules restrict any use of the information to criminally investigate or prosecute any alcohol or drug abuse patient.[facility] HospitalIn the event this information is protected by the Federal Confidentiality of Alcohol and Drug Abuse Patient Records regulations: The Federal rules restrict any use of the information to criminally investigate or prosecute any alcohol or drug abuse patient.[facility] HospitalIn the event this information is protected by the Federal Confidentiality of Alcohol and Drug Abuse Patient Records regulations: The Federal rules restrict any use of the information to criminally investigate or prosecute any alcohol or drug abuse patient.[facility] HospitalIn the event this information is protected by the Federal Confidentiality of Alcohol and Drug Abuse Patient Records regulations: The Federal rules restrict any use of the information to criminally investigate or prosecute any alcohol or drug abuse patient.[facility] HospitalIn the event this information is protected by the Federal Confidentiality of Alcohol and Drug Abuse Patient Records regulations: The Federal rules restrict any use of the information to criminally investigate or prosecute any alcohol or drug abuse patient.[facility] HospitalIn the event this information is protected by the Federal Confidentiality of Alcohol and Drug Abuse Patient Records regulations: The Federal rules restrict any use of the information to criminally investigate or prosecute any alcohol or drug abuse patient.[facility] HospitalIn the event this information is protected by the Federal Confidentiality of Alcohol and Drug Abuse Patient Records regulations: The Federal rules restrict any use of the information to criminally investigate or prosecute any alcohol or drug abuse patient.[facility] HospitalIn the event this information is protected by the Federal Confidentiality of Alcohol and Drug Abuse Patient Records regulations: The Federal rules restrict any use of the information to criminally investigate or prosecute any alcohol or drug abuse patient.[facility] HospitalIn the event this information is protected by the Federal Confidentiality of Alcohol and Drug Abuse Patient Records regulations: The Federal rules restrict any use of the information to criminally investigate or prosecute any alcohol or drug abuse patient.[facility] HospitalIn the event this information is protected by the Federal Confidentiality of Alcohol and Drug Abuse Patient Records regulations: The Federal rules restrict any use of the information to criminally investigate or prosecute any alcohol or drug abuse patient.[facility] HospitalIn the event this information is protected by the Federal Confidentiality of Alcohol and Drug Abuse Patient Records regulations: The Federal rules restrict any use of the information to criminally investigate or prosecute any alcohol or drug abuse patient.[facility] HospitalIn the event this information is protected by the Federal Confidentiality of Alcohol and Drug Abuse Patient Records regulations: The Federal rules restrict any use of the information to criminally investigate or prosecute any alcohol or drug abuse patient.[facility] HospitalIn the event this information is protected by the Federal Confidentiality of Alcohol and Drug Abuse Patient Records regulations: The Federal rules restrict any use of the information to criminally investigate or prosecute any alcohol or drug abuse patient.[facility] HospitalIn the event this information is protected by the Federal Confidentiality of Alcohol and Drug Abuse Patient Records regulations: The Federal rules restrict any use of the information to criminally investigate or prosecute any alcohol or drug abuse patient.[facility] HospitalIn the event this information is protected by the Federal Confidentiality of Alcohol and Drug Abuse Patient Records regulations: The Federal rules restrict any use of the information to criminally investigate or prosecute any alcohol or drug abuse patient.[facility] HospitalIn the event this information is protected by the Federal Confidentiality of Alcohol and Drug Abuse Patient Records regulations: The Federal rules restrict any use of the information to criminally investigate or prosecute any alcohol or drug abuse patient.[facility] HospitalIn the event this information is protected by the Federal Confidentiality of Alcohol and Drug Abuse Patient Records regulations: The Federal rules restrict any use of the information to criminally investigate or prosecute any alcohol or drug abuse patient.[facility] HospitalIn the event this information is protected by the Federal Confidentiality of Alcohol and Drug Abuse Patient Records regulations: The Federal rules restrict any use of the information to criminally investigate or prosecute any alcohol or drug abuse patient.[facility] HospitalIn the event this information is protected by the Federal Confidentiality of Alcohol and Drug Abuse Patient Records regulations: The Federal rules restrict any use of the information to criminally investigate or prosecute any alcohol or drug abuse patient.[facility] HospitalIn the event this information is protected by the Federal Confidentiality of Alcohol and Drug Abuse Patient Records regulations: The Federal rules restrict any use of the information to criminally investigate or prosecute any alcohol or drug abuse patient.[facility] HospitalIn the event this information is protected by the Federal Confidentiality of Alcohol and Drug Abuse Patient Records regulations: The Federal rules restrict any use of the information to criminally investigate or prosecute any alcohol or drug abuse patient.[facility] HospitalIn the event this information is protected by the Federal Confidentiality of Alcohol and Drug Abuse Patient Records regulations: The Federal rules restrict any use of the information to criminally investigate or prosecute any alcohol or drug abuse patient.[facility] HospitalIn the event this information is protected by the Federal Confidentiality of Alcohol and Drug Abuse Patient Records regulations: The Federal rules restrict any use of the information to criminally investigate or prosecute any alcohol or drug abuse patient.[facility] HospitalIn the event this information is protected by the Federal Confidentiality of Alcohol and Drug Abuse Patient Records regulations: The Federal rules restrict any use of the information to criminally investigate or prosecute any alcohol or drug abuse patient.[facility] HospitalIn the event this information is protected by the Federal Confidentiality of Alcohol and Drug Abuse Patient Records regulations: The Federal rules restrict any use of the information to criminally investigate or prosecute any alcohol or drug abuse patient.[facility] HospitalIn the event this information is protected by the Federal Confidentiality of Alcohol and Drug Abuse Patient Records regulations: The Federal rules restrict any use of the information to criminally investigate or prosecute any alcohol or drug abuse patient.[facility] HospitalIn the event this information is protected by the Federal Confidentiality of Alcohol and Drug Abuse Patient Records regulations: The Federal rules restrict any use of the information to criminally investigate or prosecute any alcohol or drug abuse patient.[facility] HospitalIn the event this information is protected by the Federal Confidentiality of Alcohol and Drug Abuse Patient Records regulations: The Federal rules restrict any use of the information to criminally investigate or prosecute any alcohol or drug abuse patient.[facility] HospitalIn the event this information is protected by the Federal Confidentiality of Alcohol and Drug Abuse Patient Records regulations: The Federal rules restrict any use of the information to criminally investigate or prosecute any alcohol or drug abuse patient.[facility] HospitalIn the event this information is protected by the Federal Confidentiality of Alcohol and Drug Abuse Patient Records regulations: The Federal rules restrict any use of the information to criminally investigate or prosecute any alcohol or drug abuse patient.[facility] HospitalIn the event this information is protected by the Federal Confidentiality of Alcohol and Drug Abuse Patient Records regulations: The Federal rules restrict any use of the information to criminally investigate or prosecute any alcohol or drug abuse patient.[facility] HospitalIn the event this information is protected by the Federal Confidentiality of Alcohol and Drug Abuse Patient Records regulations: The Federal rules restrict any use of the information to criminally investigate or prosecute any alcohol or drug abuse patient.[facility] HospitalIn the event this information is protected by the Federal Confidentiality of Alcohol and Drug Abuse Patient Records regulations: The Federal rules restrict any use of the information to criminally investigate or prosecute any alcohol or drug abuse patient.[facility] HospitalIn the event this information is protected by the Federal Confidentiality of Alcohol and Drug Abuse Patient Records regulations: The Federal rules restrict any use of the information to criminally investigate or prosecute any alcohol or drug abuse patient.[facility] HospitalIn the event this information is protected by the Federal Confidentiality of Alcohol and Drug Abuse Patient Records regulations: The Federal rules restrict any use of the information to criminally investigate or prosecute any alcohol or drug abuse patient.[facility] HospitalIn the event this information is protected by the Federal Confidentiality of Alcohol and Drug Abuse Patient Records regulations: The Federal rules restrict any use of the information to criminally investigate or prosecute any alcohol or drug abuse patient.[facility] HospitalIn the event this information is protected by the Federal Confidentiality of Alcohol and Drug Abuse Patient Records regulations: The Federal rules restrict any use of the information to criminally investigate or prosecute any alcohol or drug abuse patient.[facility] HospitalIn the event this information is protected by the Federal Confidentiality of Alcohol and Drug Abuse Patient Records regulations: The Federal rules restrict any use of the information to criminally investigate or prosecute any alcohol or drug abuse patient.[facility] HospitalIn the event this information is protected by the Federal Confidentiality of Alcohol and Drug Abuse Patient Records regulations: The Federal rules restrict any use of the information to criminally investigate or prosecute any alcohol or drug abuse patient.[facility] HospitalIn the event this information is protected by the Federal Confidentiality of Alcohol and Drug Abuse Patient Records regulations: The Federal rules restrict any use of the information to criminally investigate or prosecute any alcohol or drug abuse patient.[facility] HospitalIn the event this information is protected by the Federal Confidentiality of Alcohol and Drug Abuse Patient Records regulations: The Federal rules restrict any use of the information to criminally investigate or prosecute any alcohol or drug abuse patient.[facility] HospitalIn the event this information is protected by the Federal Confidentiality of Alcohol and Drug Abuse Patient Records regulations: The Federal rules restrict any use of the information to criminally investigate or prosecute any alcohol or drug abuse patient.[facility] HospitalIn the event this information is protected by the Federal Confidentiality of Alcohol and Drug Abuse Patient Records regulations: The Federal rules restrict any use of the information to criminally investigate or prosecute any alcohol or drug abuse patient.[facility] HospitalIn the event this information is protected by the Federal Confidentiality of Alcohol and Drug Abuse Patient Records regulations: The Federal rules restrict any use of the information to criminally investigate or prosecute any alcohol or drug abuse patient.[facility] HospitalIn the event this information is protected by the Federal Confidentiality of Alcohol and Drug Abuse Patient Records regulations: The Federal rules restrict any use of the information to criminally investigate or prosecute any alcohol or drug abuse patient.[facility] HospitalIn the event this information is protected by the Federal Confidentiality of Alcohol and Drug Abuse Patient Records regulations: The Federal rules restrict any use of the information to criminally investigate or prosecute any alcohol or drug abuse patient.[facility] HospitalIn the event this information is protected by the Federal Confidentiality of Alcohol and Drug Abuse Patient Records regulations: The Federal rules restrict any use of the information to criminally investigate or prosecute any alcohol or drug abuse patient.[facility] HospitalIn the event this information is protected by the Federal Confidentiality of Alcohol and Drug Abuse Patient Records regulations: The Federal rules restrict any use of the information to criminally investigate or prosecute any alcohol or drug abuse patient.[facility] Reason for Visit (unrecogniz ed section [...] CONSULT BACK EHP EMP Procedures OFFICE/OUTPATIENT [facility] 30-44 MINUTES CHIROPRAC MANIP,SPINAL,1-2 [place] CHIROPRACTOR Self Wilver Montemayor DC [address] [place] [address] Referral ID Status Reason Start Date Expiration Date Visits Requested Visits Authorized [id number] Authorized Benefit Check 07/01/2022 10/03/2022 30 30 Reason Comments Radio Gen HB6 Radio Gen A21 Specialty Diagnoses / Procedures Referred By Contac t Referred To Contact XR IMAGING Diagnoses Chronic bilateral thoracic back pain Procedures XR THORACIC GENERAL 3V AP/LAT/SWIMMERS RADEX SPINE THORACIC 3 VIEWS Wilver Montemayor DC [address] [place] [address] Xr Imaging Referral ID Status Reason Start Date Expiration Date V isits Requested Visits Authorized [id number] Closed Auto-Generate d Referral 07/01/2022 07/31/2023 1 1 Reason Comments Wellness Full back, middle up per Specialty Diagnoses / Procedures Referred By Contac t Referred To Contact Chiropractor / WELLNESS Diagnoses Back pain CONSULT BACK EHP EMP Procedures OFFICE/OUTPATIENT [facility] 30-44 MINUTES CHIROPRAC MANIP,SPINAL,1-2 [facility] [place] [facility]IR[facility] Self Wilver Montemayor [place] [address] [place] [address] Reason Comments Establish Care Reason Comments Vaginal Problem Urinary frequency, l ower abd pain and pressure x4 days Reason Comments Results Reason Comments Patient Update Reason Comments Testing Home test positive; pt seeking confirmation and next steps Reason Comments Care 8W Specialty Diagnoses / Procedures Referred By Contac t Referred To Contact Diagnoses confirmed by positive urine test Procedures CONSULT TO [employer]ER OFFICE/OUTPATIENT NEW HIGH MDM 60-74 MINUTES Maegan Morrissey PA-C [address] [place] [address] Referral ID Status Reason Start Date Expiration Date V isits Requested Visits Authorized [id number] Closed PCP Requested Referral Auto-Generated Referral 11/30/2022 11/30/2023 1 1 Reason Comments Results NIPT Reason Comments Care Reason Comments US Specialty Diagnoses / Procedures Referred By Contac t Referred To Contact [facility] Diagnoses Encounter for screening of mother Procedures OBSTETRIC ULTRASOUND WHI US PREG UTERUS AFTER 1ST [place] [address] [address] [place] [address] [facility] [address] [place] [address] Referral ID Status Reason Start Date Expiration Date V isits Requested Visits Authorized [id number] Closed Auto-Generate d Referral 01/25/2023 01/25/2024 1 [...] Care Teams (unrecognized sec tion and content) Reinforced 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 Relationship Specialty Start Date End Date Angela Ray MD [address] [facility] [place] [address] PCP - General Internal Medicine/Pediatrics 03/31/22 Reinforced Ironworker Relationship Specialty Start Date End Date Angela Ray MD [address] [place] [id number] PCP - General Internal Medicine/Pediatrics 03/31/22 Reinforced Ironworker Relationship Specialty Start Date End Date Hellen Paez MD [address] [place] [id number] PCP - General Internal Medicine 04/12/22 Reinforced Ironworker Relationship Specialty Start Date End Date Hellen Paez MD [address] [place] [id number] PCP - General Internal Medicine 04/12/22 Reinforced Ironworker Relationship Specialty Start Date End Date Hellen Paez MD [address] [place] [id number] PCP - General Internal Medicine 04/12/22 Reinforced Ironworker Relationship Specialty Start Date End Date Hellen Paez MD [address] [place] [id number] PCP - General Internal Medicine 04/12/22 Reinforced Ironworker Relationship Specialty Start Date End Date Hellen Paez MD [address] [place] [id number] PCP - General Internal Medicine 04/12/22 Reinforced Ironworker Relationship Specialty Start Date End Date Hellen Paez MD [address] [place] [address] PCP - General Internal Medicine 04/12/22 Reinforced Ironworker Relationship Specialty Start Date End Date Hellen Paez MD [address] [place] [id number] PCP - General Internal Medicine 04/12/22 Reinforced Ironworker Relationship Specialty Start Date End Date Hellen Paez MD [address] [place] [address] PCP - General Internal Medicine 04/12/22 Reinforced Ironworker Relationship Specialty Start Date End Date Hellen Paez MD [address] [place] [address] PCP - General Internal Medicine 04/12/22 Reinforced Ironworker Relationship Specialty Start Date End Date Hellen Paez MD [address] [place] [address] PCP - General Internal Medicine 04/12/22 Reinforced Ironworker Relationship Specialty Start Date End Date Hellen Paez MD [address] [place] [address] PCP - General Internal Medicine 04/12/22 Reinforced Ironworker Relationship Specialty Start Date End Date Hellen Paez MD [address] [place] [address] PCP - General Internal Medicine 04/12/22 Reinforced Ironworker Relationship Specialty Start Date End Date Hellen Paez MD [address] [place] [address] PCP - General Internal Medicine 04/12/22 Reinforced Ironworker Relationship Specialty Start Date End Date Hellen Paez MD [address] [place] [address] PCP - General Internal Medicine 04/12/22 Reinforced Ironworker Relationship Specialty Start Date End Date Hellen Paez MD [address] [place] [address] PCP - General Internal Medicine 04/12/22 Reinforced Ironworker Relationship Specialty Start Date End Date Hellen Paez MD [address] [place] [address] PCP - General Internal Medicine 04/12/22 Reinforced Ironworker Relationship Specialty Start Date End Date Hellen Paez MD [address] [place] [address] PCP - General Internal Medicine 04/12/22 Reinforced Ironworker Relationship Specialty Start Date End Date Hellen Paez MD [address] [place] [address] PCP - General Internal Medicine 04/12/22 Reinforced Ironworker Relationship Specialty Start Date End Date Hellen Paez MD [address] [place] [address] PCP - General Internal Medicine 04/12/22 Reinforced Ironworker Relationship Specialty Start Date End Date Hellen Paez MD [address] [place] [address] PCP - General Internal Medicine 04/12/22 Reinforced Ironworker Relationship Specialty Start Date End Date Hellen Paez MD [address] [place] [address] PCP - General Internal Medicine 04/12/22 Reinforced Ironworker Relationship Specialty Start Date End Date Hellen Paez MD [address] [place] [address] PCP - General Internal Medicine 04/12/22 Reinforced Ironworker Relationship Specialty Start Date End Date Hellen Paez MD [address] [place] [address] PCP - General Internal Medicine 04/12/22 Reinforced Ironworker Relationship Specialty Start Date End Date Hellen Paez MD [address] [place] [address] PCP - General Internal Medicine 04/12/22 Reinforced Ironworker Relationship Specialty Start Date End Date Hellen Paez MD [address] [place] [address] PCP - General Internal Medicine 04/12/22 Reinforced Ironworker Relationship Specialty Start Date End Date Hellen Paez MD [address] [place] [address] PCP - General Internal Medicine 04/12/22 Reinforced Ironworker Relationship Specialty Start Date End Date Hellen Paez MD [address] [place] [address] PCP - General Internal Medicine 04/12/22 Reinforced Ironworker Relationship Specialty Start Date End Date Hellen Paez MD [address] [place] [address] PCP - General Internal Medicine 04/12/22 Reinforced Ironworker Relationship Specialty Start Date End Date Hellen Paez MD [address] [place] [address] PCP - General Internal Medicine 04/12/22 Reinforced Ironworker Relationship Specialty Start Date End Date Hellen Paez MD [address] [place] [address] PCP - General Internal Medicine 04/12/22 Reinforced Ironworker Relationship Specialty Start Date End Date Hellen Paez MD [address] [place], [place] [id number] PCP - General Internal Medicine 04/12/22 Reinforced Ironworker Relationship Specialty Start Date End Date Hellen Paez MD [address] [place], [place] [id number] PCP - General Internal Medicine 04/12/22 Reinforced Ironworker Relationship Specialty Start Date End Date Hellen Paez MD [address] [place] [address] PCP - General Internal Medicine 04/12/22 Reinforced Ironworker Relationship Specialty Start Date End Date Hellen Paez MD [address] [place] [address] PCP - General Internal Medicine 04/12/22 Reinforced Ironworker Relationship Specialty Start Date End Date Hellen Paez MD [address] [place] [address] PCP - General Internal Medicine 04/12/22 INFORMATION SOURCE (unrecogn ized section and content) DATE CREATED AUTHOR 11/11/2022 [facility] DATE CREATED AUTHOR AUTHOR'S ORGANIZ ATION 07/25/2023 [facility] DATE CREATED AUTHOR AUTHOR'S ORGANIZ ATION 08/23/2023 [facility] DATE CREATED AUTHOR AUTHOR'S ORGANIZ ATION 12/15/2024 [facility] DATE CREATED AUTHOR AUTHOR'S ORGANIZ ATION 03/01/2025 [facility] DATE CREATED AUTHOR AUTHOR'S ORGANIZ ATION 08/16/2025 [facility] FOR RECORDS PERTAINING TO PATIENTS WHO ARE [...] BE BASED ON THE PRIMARY CLINICAL RECORDS. [facility]. provides no warranty or guarantee of the accuracy or completeness of information in this document.
== END | disposition home or self-care (01) ==
LOC: LABSPEC 14:27
PROVIDERS: PCP Internal Medicine; Visit Provider Obstetrics & Gynecology
DX: R05.9 Cough, unspecified (principal)
CPT/HCPCS: 87631